=== PATIENT | male | born 1930 | race Caucasian/White ===

== ENCOUNTER 2017-01-14 12:09 | Inpatient (IN) | payer MEDICARE ==
[~2017-01-14] VITALS: Ht 185.4 cm; Wt 60.6 kg
[~2017-01-14 12:09] MED LIST: CALC-515 PO; CHOL500016 PO; CIPR250T30 PO; CYAN10005 PO; FAMO20TA5 PO; GLIM4TAB2 PO; METF-620 PO; ONDA4TAB7 PO; PANT40TA5 PO; [UNRECOGNIZED DRUG - OTHER] NAS
[2017-01-14] MEDS ORDERED: FAMOTIDINE 20 MG/2 ML VIAL IVP ONE (14:00)
[2017-01-14] MEDS ORDERED: IV DEXTROSE 5% - 0.9 % NACL 1,000 ML IV ONE (14:00)
[2017-01-14 14:21] LABS: BASO % 1 % (0-3); EOS % 1 % (0-3); HEMATOCRIT 27.7 % (39.0-53.0); HEMOGLOBIN 9.3 g/dL (13.0-17.5); LYMPH # 0.8 x10^3/uL (1.0-4.8); LYMPH % 21 % (24-48); MEAN CORPUSCULAR HEMOGLOBIN 31 pg (25-35); MEAN CORPUSCULAR HGB CONC 34 g/dL (31-37); MEAN CORPUSCULAR VOLUME 92 fL (79-100); MONO % 8 % (0-9); NEUT % 69 % (31-73); PLATELET COUNT 159 x10^3/uL (140-400); RED BLOOD COUNT 3.01 x10^6/uL (4.30-5.70); RED CELL DISTRIBUTION WIDTH 13.9 % (11.5-14.5)
[2017-01-14 14:55] LABS: CALCIUM 8.8 mg/dL (8.5-10.1); CREATININE 2.3 mg/dL (0.7-1.3); GFR 27.2; POTASSIUM 4.3 mmol/L (3.5-5.1)
[2017-01-14 15:02] LABS: ALBUMIN 2.8 g/dL (3.4-5.0); ALBUMIN/GLOBULIN RATIO 0.8 (1.0-1.7); TOTAL BILIRUBIN 0.3 mg/dL (0.2-1.0); TOTAL PROTEIN 6.5 g/dL (6.4-8.2)
--- NOTE | 2017-01-14 15:05 | PHYS DOC ---
Past Medical History Past Medical History: Diabetes-Type II, [place], Other Additional Past Medical Histor: ULCERS Past Surgical History: Appendectomy, Cholecystectomy, Coronary Bypass Surgery, Other Additional Past Surgical Histo: STOMACH MESH Alcohol Use: None Drug Use: None Adult General Chief Complaint Chief Complaint: DIFFICULTY SWALLOWING HPI HPI Patient is a 86 year old male with history of dysphagia with recent hospitalization for abdominal pain nausea vomiting. Patient was underwent EGD and offered PEG tube placement during the hospital stay. Patient reportedly declined PEG tube placement in rehabilitation. Since returning home, patient has had progressive difficulty swallowing per patient family members. He has not been able to take his pills for the past 2 days has had very little L distal oral intake. Patient reports feeling weak dizzy and lightheaded and regurgitation of food. Family and patient said they're willing to consider all therapeutic options available cluing PEG tube placement. [] Review of Systems Review of Systems Review symptoms as per history of present illness. Current Medications Current Medications Current Medications Medications (Trade) Dose Ordered Sig/Enrrique Start Time Stop Time Status Last Admin Dose Admin Dextrose/Sodium Chloride 1,000 ml @ 125 mls/hr 1X ONCE 01/14/17 14:00 01/14/17 21:59 01/14/17 14:32 125 MLS/HR Famotidine (Pepcid) 20 mg 1X ONCE 01/14/17 14:00 01/14/17 14:02 DC 01/14/17 14:31 20 MG Allergies Allergies Allergies Coded Allergies Type Severity Reaction Last Updated Verified No Known Drug Allergies 01/06/17 No Physical Exam Physical Exam Constitutional: Well developed, well nourished, no acute distress, non-toxic appearance. [] HENT: Normocephalic, atraumatic, bilateral external ears normal, oropharynx moist, no oral exudates, nose normal. [] Eyes: PERRLA, EOMI, conjunctiva normal, no discharge. [] Neck: Normal range of motion, no tenderness, supple, no stridor. [] Cardiovascular:Heart rate regular rhythm, no murmur [] Lungs & Thorax: Bilateral breath sounds clear to auscultation [] Abdomen: Bowel sounds normal, soft, gastric pain, tenderness, no masses, no pulsatile masses. [] Skin: Warm, dry, no erythema, no rash. [] Back: No tenderness, no CVA tenderness. [] Extremities: No tenderness, no cyanosis, no clubbing, ROM intact, no edema. [] Neurologic: Alert and oriented X 3, normal motor function, normal sensory function, no focal deficits noted. [] Psychologic: Affect normal, judgement normal, mood normal. [] Current Patient Data Vital Signs Vital Signs Date Time Temp Pulse Resp B/P (MAP) Pulse Ox O2 Delivery O2 Flow Rate FiO2 01/14/17 14:00 64 18 110/55 (73) 100 Room Air 01/14/17 12:32 98.4 98.4 Lab Values Laboratory Tests Test 01/14/17 14:00 White Blood Count 4.0 x10^3/uL (4.0-11.0) Red Blood Count 3.01 x10^6/uL (4.30-5.70) L Hemoglobin 9.3 g/dL (13.0-17.5) L Hematocrit 27.7 % (39.0-53.0) L Mean Corpuscular Volume 92 fL (79-100) Mean Corpuscular Hemoglobin 31 pg (25-35) Mean Corpuscular Hemoglobin Concent 34 g/dL (31-37) Red Cell Distribution Width 13.9 % (11.5-14.5) Platelet Count 159 x10^3/uL (140-400) Neutrophils (%) (Auto) 69 % (31-73) Lymphocytes (%) (Auto) 21 % (24-48) L Monocytes (%) (Auto) 8 % (0-9) Eosinophils (%) (Auto) 1 % (0-3) Basophils (%) (Auto) 1 % (0-3) Neutrophils # (Auto) 2.8 x10^3uL (1.8-7.7) Lymphocytes # (Auto) 0.8 x10^3/uL (1.0-4.8) L Monocytes # (Auto) 0.3 x10^3/uL (0.0-1.1) Eosinophils # (Auto) 0.0 x10^3/uL (0.0-0.7) Basophils # (Auto) 0.0 x10^3/uL (0.0-0.2) Sodium Level 137 mmol/L (136-145) Potassium Level 4.3 mmol/L (3.5-5.1) Chloride Level 101 mmol/L (98-107) Carbon Dioxide Level 29 mmol/L (21-32) Anion Gap 7 (6-14) Blood Urea Nitrogen 42 mg/dL (8-26) H Creatinine 2.3 mg/dL (0.7-1.3) H Estimated GFR (Cockcroft-Gault) 27.2 BUN/Creatinine Ratio 18 (6-20) Glucose Level 145 mg/dL (70-99) H Calcium Level 8.8 mg/dL (8.5-10.1) Total Bilirubin 0.3 mg/dL (0.2-1.0) Aspartate Amino Transferase (AST) 31 U/L (15-37) Alanine Aminotransferase (ALT) 37 U/L (16-63) Alkaline Phosphatase 59 U/L (46-116) Total Protein 6.5 g/dL (6.4-8.2) Albumin 2.8 g/dL (3.4-5.0) L Albumin/Globulin Ratio 0.8 (1.0-1.7) L Lipase 42 U/L (73-393) L Laboratory Tests 01/14/17 14:00 Laboratory Tests 01/14/17 14:00 EKG EKG [] Radiology/Procedures Radiology/Procedures [] Course & Med Decision Making Course & Med Decision Making Pertinent Labs and Imaging studies reviewed. (See chart for details) [Patient unable to tolerate fluid or food intake. IV fluids started. Dr. Callaway to admit] Armond Disclaimer Armond Disclaimer This electronic medical record was generated, in whole or in part, using a voice recognition dictation system. Departure Departure Disposition: ADMITTED INPATIENT Admitting Physician: Jessica Callaway Condition: STABLE Referrals: BEA ZARCO MD (PCP) MANDEEP GRAF DO Jan 14, 2017 15:05
[2017-01-14 16:00] VITALS: BP 110/72
[2017-01-14 19:35] VITALS: BP 116/66
[2017-01-14 23:56] VITALS: BP 114/62
[2017-01-15 03:50] VITALS: BP 131/71
[2017-01-15 07:00] VITALS: BP 116/55
[2017-01-15 11:00] VITALS: BP 116/55
--- NOTE | 2017-01-15 11:48 | PDOC ---
PROGRESS NOTES Chief Complaint Chief Complaint Dysphagia ASSESSMENT AND PLAN: 1. Dysphagia: recent admit for same with GI W/U, incl swallow study, EGD. pt/ family had declined PEG at the time, now willing to go ahead. GI consult 2. GERD/PUD: hx perf.ed ulcer in 2010; gastritis, esophageal ulcer on recent EGD; H.pylori neg, malignancy neg. PPI IV for now, carafate, trial viscous lidocaine 3. Nutrition: start PPN for now 4. DM2: well controlled. add ISS 5. CAD: no acute issues. oral meds currently on hold. 6. HTN: hydralazine PRN 7. CKD3: stable. monitor 8. Prophylaxis: mechanical for now in anticipation of intervention History of Present Illness History of Present Illness feels ok, but can't even swallow Boost, odynophagia is that bad. Vitals Vitals Vital Signs Date Time Temp Pulse Resp B/P (MAP) Pulse Ox O2 Delivery O2 Flow Rate FiO2 01/15/17 07:00 97.9 89 22 116/55 (75) 98 Room Air 97.9 Physical Exam General: Alert, Oriented X3, Cooperative, No acute distress Heart: Regular rate Lungs: Clear Abdomen: Normal bowel sounds, No tenderness, Other (thick scar gron gastrectomy ) Extremities: No edema Skin: No rashes Labs LABS Laboratory Tests Test 01/14/17 14:00 White Blood Count 4.0 x10^3/uL (4.0-11.0) Red Blood Count 3.01 x10^6/uL (4.30-5.70) Hemoglobin 9.3 g/dL (13.0-17.5) Hematocrit 27.7 % (39.0-53.0) Mean Corpuscular Volume 92 fL (79-100) Mean Corpuscular Hemoglobin 31 pg (25-35) Mean Corpuscular Hemoglobin Concent 34 g/dL (31-37) Red Cell Distribution Width 13.9 % (11.5-14.5) Platelet Count 159 x10^3/uL (140-400) Neutrophils (%) (Auto) 69 % (31-73) Lymphocytes (%) (Auto) 21 % (24-48) Monocytes (%) (Auto) 8 % (0-9) Eosinophils (%) (Auto) 1 % (0-3) Basophils (%) (Auto) 1 % (0-3) Neutrophils # (Auto) 2.8 x10^3uL (1.8-7.7) Lymphocytes # (Auto) 0.8 x10^3/uL (1.0-4.8) Monocytes # (Auto) 0.3 x10^3/uL (0.0-1.1) Eosinophils # (Auto) 0.0 x10^3/uL (0.0-0.7) Basophils # (Auto) 0.0 x10^3/uL (0.0-0.2) Sodium Level 137 mmol/L (136-145) Potassium Level 4.3 mmol/L (3.5-5.1) Chloride Level 101 mmol/L (98-107) Carbon Dioxide Level 29 mmol/L (21-32) Anion Gap 7 (6-14) Blood Urea Nitrogen 42 mg/dL (8-26) Creatinine 2.3 mg/dL (0.7-1.3) Estimated GFR (Cockcroft-Gault) 27.2 BUN/Creatinine Ratio 18 (6-20) Glucose Level 145 mg/dL (70-99) Calcium Level 8.8 mg/dL (8.5-10.1) Total Bilirubin 0.3 mg/dL (0.2-1.0) Aspartate Amino Transf (AST/SGOT) 31 U/L (15-37) Alanine Aminotransferase (ALT/SGPT) 37 U/L (16-63) Alkaline Phosphatase 59 U/L (46-116) Total Protein 6.5 g/dL (6.4-8.2) Albumin 2.8 g/dL (3.4-5.0) Albumin/Globulin Ratio 0.8 (1.0-1.7) Lipase 42 U/L (73-393) BRENDA TOMLIN MD Jan 15, 2017 11:48
[2017-01-15] MEDS ORDERED: hydrALAZINE 20 MG/ML VIAL. IVP PRN (13:00)
[2017-01-15] MEDS ORDERED: DEXTROSE 50% 25 GM / 50ML DISP.SYRIN. IV PRN (13:00)
[2017-01-15] MEDS: FAMOTIDINE 20 MG/2 ML VIAL IVP SCH (13:25)
--- NOTE | 2017-01-15 13:25 | PDOC2 ---
GI CONSULT Reason For Consult: "Dysphagia" HPI: HPI: 86 y/o male just discharged 01/10 after admission for difficulty with deglutition. Then and now does not describe true dysphagia, but feels like food stops in the hypopharynx. Evaluation last week included PHONE SCREENER evaluation including videoswallow exam; no demonstrable problems with swallow. Had barium swallow suggesting possible esophageal stricture. At EGD, severe esophagitis throughout the esophagus felt from reflux and penetrating duodenal ulcer, H.pylori negative, but no structure. Seemed to improve with PPI, though never liked eating much above pudding consistency. Says taking his PPI daily except yesterday. Apparently had operative repair of perforated ulcer in the past. S/p daniel. No liver or pancreatic history. Former smoker. No alcohol use. No clear NSAID use. No D, C, overt bleeding or melena. No documented colonoscopy though believes he had one sometime. When seen in one of our offices years ago , one was recommended along with an EGD, but not scheduled. No true nausea or vomiting, though spits out what he feels he can't swallow. Has had progressive weight loss. PMH: PMH: ASHD, HTN, CKD, DM. S/p CABG, daniel, appy, repair ulcer perf. FH: Family History: No pertinent hx Social History: Smoke: Quit ALCOHOL: none Drugs: None ROS: GEN: Denies fevers, chills, sweats HEENT: Denies blurred vision, sore throat CV: Denies chest pain RESP: Denies shortness of air, cough GI: Per HPI : Denies hematuria, dysuria ENDO: Denies weight changes NEURO: Denies confusion, dizziness MSK: Denies weakness, joint pain/swelling SKIN: Denies jaundice, pruritus Vitals: Vitals: Vital Signs Date Time Temp Pulse Resp B/P (MAP) Pulse Ox O2 Delivery O2 Flow Rate FiO2 01/15/17 11:00 97.8 69 22 116/55 (75) 96 Room Air 97.8 Labs: Labs: Laboratory Tests Test 01/14/17 14:00 White Blood Count 4.0 x10^3/uL (4.0-11.0) Red Blood Count 3.01 x10^6/uL (4.30-5.70) Hemoglobin 9.3 g/dL (13.0-17.5) Hematocrit 27.7 % (39.0-53.0) Mean Corpuscular Volume 92 fL (79-100) Mean Corpuscular Hemoglobin 31 pg (25-35) Mean Corpuscular Hemoglobin Concent 34 g/dL (31-37) Red Cell Distribution Width 13.9 % (11.5-14.5) Platelet Count 159 x10^3/uL (140-400) Neutrophils (%) (Auto) 69 % (31-73) Lymphocytes (%) (Auto) 21 % (24-48) Monocytes (%) (Auto) 8 % (0-9) Eosinophils (%) (Auto) 1 % (0-3) Basophils (%) (Auto) 1 % (0-3) Neutrophils # (Auto) 2.8 x10^3uL (1.8-7.7) Lymphocytes # (Auto) 0.8 x10^3/uL (1.0-4.8) Monocytes # (Auto) 0.3 x10^3/uL (0.0-1.1) Eosinophils # (Auto) 0.0 x10^3/uL (0.0-0.7) Basophils # (Auto) 0.0 x10^3/uL (0.0-0.2) Sodium Level 137 mmol/L (136-145) Potassium Level 4.3 mmol/L (3.5-5.1) Chloride Level 101 mmol/L (98-107) Carbon Dioxide Level 29 mmol/L (21-32) Anion Gap 7 (6-14) Blood Urea Nitrogen 42 mg/dL (8-26) Creatinine 2.3 mg/dL (0.7-1.3) Estimated GFR (Cockcroft-Gault) 27.2 BUN/Creatinine Ratio 18 (6-20) Glucose Level 145 mg/dL (70-99) Calcium Level 8.8 mg/dL (8.5-10.1) Total Bilirubin 0.3 mg/dL (0.2-1.0) Aspartate Amino Transf (AST/SGOT) 31 U/L (15-37) Alanine Aminotransferase (ALT/SGPT) 37 U/L (16-63) Alkaline Phosphatase 59 U/L (46-116) Total Protein 6.5 g/dL (6.4-8.2) Albumin 2.8 g/dL (3.4-5.0) Albumin/Globulin Ratio 0.8 (1.0-1.7) Lipase 42 U/L (73-393) No major changes since discharge. Allergies: Coded Allergies: No Known Drug Allergies (Unverified , 01/06/17) Medications: Current Medications Medications (Trade) Dose Ordered Sig/Enrrique Route PRN Reason Start Time Stop Time Status Last Admin Dose Admin Famotidine (Pepcid) 20 mg 1X ONCE IVP 01/14/17 14:00 01/14/17 14:02 DC 01/14/17 14:31 Dextrose/Sodium Chloride 1,000 ml @ 125 mls/hr 1X ONCE IV 01/14/17 14:00 01/14/17 21:59 DC 01/14/17 14:32 PE: GEN: NAD, thin HEENT: Atraumatic, PERRLA, multiple missing teeth. LUNGS: CTAB HEART: RRR, no murmurs ABD: NABS, S/ND/NT, no masses EXTREMITY: No edema SKIN: No rashes, no jaundice NEURO/PSYCH: A & O 3 A/P: A/P: IMP: Abnormal deglutition. Reasons for this unclear--fear of swallowing? psych ? By all measurements, no physical issue at cause. Severe reflux esophagitis. DU s/p daniel. Unclear prior colonoscopy. REC: At some point last admission, PEG may have been discussed. I cannot find note to say so, though covering physician mentions GJ tube. I think that may have been due to concerns re: possible duodenal stricture from his ulcer. Will leave decision re: this to Dr. Odonnell upon his return this evening. Agree with continuing anti-secretory. If he wishes to try eating, I think this is acceptable; last admission liked BOOST pudding a lot. --other pending. Thanks. ADEEL YBARRA MD Jan 15, 2017 13:25
[2017-01-15] MEDS: AMINO AC 3%/ELECTROLYTE/GLYCER 1,000 ML IV SCH (13:26)
[2017-01-15] MEDS: LIDOCAINE 2% VISCOUS 15 ML SOLUTION. SWSW PRN ×2 (13:26→21:31)
[2017-01-15 13:36] LABS: BASO % 1 % (0-3); EOS % 1 % (0-3); HEMATOCRIT 24.6 % (39.0-53.0); HEMOGLOBIN 8.6 g/dL (13.0-17.5); LYMPH # 0.7 x10^3/uL (1.0-4.8); LYMPH % 27 % (24-48); MEAN CORPUSCULAR HEMOGLOBIN 31 pg (25-35); MEAN CORPUSCULAR HGB CONC 35 g/dL (31-37); MEAN CORPUSCULAR VOLUME 90 fL (79-100); MONO % 9 % (0-9); NEUT % 63 % (31-73); PLATELET COUNT 147 x10^3/uL (140-400); RED BLOOD COUNT 2.75 x10^6/uL (4.30-5.70); RED CELL DISTRIBUTION WIDTH 13.8 % (11.5-14.5); WHITE BLOOD COUNT 2.7 x10^3/uL (4.0-11.0)
[2017-01-15 13:45] LABS: CALCIUM 8.2 mg/dL (8.5-10.1); CREATININE 1.7 mg/dL (0.7-1.3); GFR 38.5; POTASSIUM 3.8 mmol/L (3.5-5.1)
--- NOTE | 2017-01-15 14:49 | HP ---
ADMIT DATE: 01/14/2017 DATE OF SERVICE: 01/14/2017 CHIEF COMPLAINT: Odynophagia. HISTORY OF PRESENT ILLNESS: The patient is an 86-year-old gentleman with recent hospitalization for the same who presents with persistent symptoms. During his last hospitalization just a few days ago, he actually had undergone extensive GI workup with swallow study as well as EGD showing an esophageal ulcer, probably the culprit of his symptoms. The swallow study suggested he should do well with full liquids. However, the patient had deteriorated and could not tolerate fluids, but had declined a PEG tube during previous hospitalization. As he continued to deteriorate at home over the past couple of days, he decided to come in the hospital and is now amenable to PEG placement. PAST MEDICAL HISTORY: Esophageal ulcer as above. Distant history of perforated viscus status post repair in 2010, history of CAD status post CABG, hypertension , hyperlipidemia, diabetes mellitus. FAMILY HISTORY: Positive for CAD. SOCIAL HISTORY: Currently lives with his daughter and son-in-law. No toxic habits. ALLERGIES: No known drug allergies. HOME MEDICATIONS: Reviewed. REVIEW OF SYSTEMS: Positive as per HPI. He denies any nausea, any vomiting, any abdominal pain, per se. Denies any cough or palpitations. Rest of organ system review was negative. PHYSICAL EXAMINATION: VITAL SIGNS: From today show blood pressure of 110/72, heart rate of 69, respiratory rate at 18. He is afebrile. GENERAL: This is a malnourished appearing 86-year-old gentleman, alert and oriented, in no acute distress. HEENT: Shows no scleral icterus. Oral mucosa is dry. NECK: Supple, without any lymphadenopathy. HEART: Regular rate and rhythm. LUNGS: Clear to auscultation bilaterally. ABDOMEN: Has positive bowel sounds, soft. There is thickening of the midline incision due to scar formation. EXTREMITIES: Show no edema. SKIN: Warm, soft and dry without any rash. LABORATORY DATA: CBC with a WBC of 4.0, hemoglobin 9.3, platelets of 159. Chemistries with a BUN and creatinine of 42 and 2.3, above his previous levels of 28 and 1.5 just 4 days ago. Electrolytes within normal limits. Glucose at 145, albumin at 2.8. LFTs within normal. ASSESSMENT AND PLAN: The patient is an 86-year-old gentleman with severe odynophagia secondary to esophageal ulcer. He is now amenable to PEG placement. We will obtain GI consult. Dr. Odonnell saw him during his previous hospitalization. In the meantime, we will start him on TPN for nutrition. He has received IV fluids in the ER already. For his symptoms, he will receive IV PPI/H2 blockers, Carafate and viscous lidocaine p.r.n. As most of his medications are p.o. and will have to be held at least for the time being, I will start him on insulin sliding scale for his diabetes mellitus as well as hydralazine for hypertension. Once enteral access is regained, we will restart all his home meds. Prophylaxis will be mechanical until decision about surgical interventions is made. BRENDA TOMLIN MD DR: UR/nts JOB#: [id number] / [id number] BEA Desir MD MTDD
[2017-01-15 15:00] VITALS: BP 133/74
[2017-01-15] MEDS: INSULIN ASPART 300 UNITS/3 ML INSULN.PEN SQ SCH (17:00)
[2017-01-15] MEDS: SUCRALFATE 1 GM/10 ML ORAL.SUSP. PEG SCH ×2 (17:36→21:31)
[2017-01-15 19:00] VITALS: BP 126/68
[2017-01-15 23:00] VITALS: BP 125/64
[2017-01-16] MEDS: AMINO AC 3%/ELECTROLYTE/GLYCER 1,000 ML IV SCH ×2 (01:29→13:31)
[2017-01-16 07:00] VITALS: BP 124/38
[2017-01-16] MEDS: INSULIN ASPART 300 UNITS/3 ML INSULN.PEN SQ SCH ×3 (08:00→16:41)
[2017-01-16] MEDS: SUCRALFATE 1 GM/10 ML ORAL.SUSP. PEG SCH ×4 (08:45→21:00)
[2017-01-16] MEDS: FAMOTIDINE 20 MG/2 ML VIAL IVP SCH ×2 (08:46→13:00)
[2017-01-16] MEDS ORDERED: LIDO:MAALOX:DONNATAL 1:1:1 15 ML SINGLE DOSE SWSW PRN (09:15)
--- NOTE | 2017-01-16 09:16 | PDOC ---
Subjective: Subjective: Wants to try eating. Can't really tell me why he can't/won't swallow. Denies pain w/ swallowing. "Just can't swallow." present - also unable to contribute much to history. Son describes coughing w/ eating. Also says "lidocaine helped." Objective: Objective: D/w RN - has been NPO. Swallowed Carafate susp in my presence w/o issue - no coughing. Vital Signs: Vital Signs Date Time Temp Pulse Resp B/P (MAP) Pulse Ox O2 Delivery O2 Flow Rate FiO2 01/16/17 07:00 98.2 57 18 124/38 (66) 98 Room Air 98.2 Labs: Laboratory Tests Test 01/15/17 13:15 01/15/17 13:25 01/15/17 17:35 01/16/17 07:23 White Blood Count 2.7 x10^3/uL Red Blood Count 2.75 x10^6/uL Hemoglobin 8.6 g/dL Hematocrit 24.6 % Mean Corpuscular Volume 90 fL Mean Corpuscular Hemoglobin 31 pg Mean Corpuscular Hemoglobin Concent 35 g/dL Red Cell Distribution Width 13.8 % Platelet Count 147 x10^3/uL Neutrophils (%) (Auto) 63 % Lymphocytes (%) (Auto) 27 % Monocytes (%) (Auto) 9 % Eosinophils (%) (Auto) 1 % Basophils (%) (Auto) 1 % Neutrophils # (Auto) 1.7 x10^3uL Lymphocytes # (Auto) 0.7 x10^3/uL Monocytes # (Auto) 0.2 x10^3/uL Eosinophils # (Auto) 0.0 x10^3/uL Basophils # (Auto) 0.0 x10^3/uL Sodium Level 138 mmol/L Potassium Level 3.8 mmol/L Chloride Level 104 mmol/L Carbon Dioxide Level 30 mmol/L Anion Gap 4 Blood Urea Nitrogen 29 mg/dL Creatinine 1.7 mg/dL Estimated GFR (Cockcroft-Gault) 38.5 Glucose Level 149 mg/dL Calcium Level 8.2 mg/dL Glucose (Fingerstick) 135 mg/dL 101 mg/dL 125 mg/dL PE: GEN: NAD LUNGS: clear HEART: distant ABD: BS+, vague mild discomfort NEURO/PSYCH: A & O 3, Ewiiaapaayp A/P: Abnormal deglutition -recent workup: [facility] eval and videoswallow w/o problems barium swallow w/ possible stricture EGD w/ severe esophagitis and penetrating duodenal ulcer (w/o stricture) -- History difficult, as was last admission. No issues with swallowing this morning (at least w/ liquid Carafate). Will try diet, ask for nutrition consult - he likes Boost pudding. Has PPN. We did talk about a feeding tube briefly but pt/family want to try PO intake now. Restart PPI BID. Note palliative care has been asked to see. UPDATE - since I have seen this morning, RN called and said unable to tolerate liquids, "coughed back up," apparently changed back to NPO and now requesting feeding tube. Will review this w/ Dr. Odonnell. RAS HARRIS Jan 16, 2017 09:15
[2017-01-16 11:00] VITALS: BP 120/57
--- NOTE | 2017-01-16 14:38 | PDOC ---
PROGRESS NOTES Chief Complaint Chief Complaint Dysphagia ASSESSMENT AND PLAN: 1. Dysphagia: recent admit for same with GI W/U, incl swallow study, EGD. pt/ family had declined PEG at the time, now willing to go ahead. Dr Odonnell aware 2. GERD/PUD: hx perf.ed ulcer in 2010; gastritis, esophageal ulcer on recent EGD; H.pylori neg, malignancy neg. PPI IV for now, carafate, trial viscous lidocaine 3. Nutrition: start PPN for now 4. DM2: well controlled. add ISS 5. CAD: no acute issues. oral meds currently on hold. 6. HTN: hydralazine PRN 7. CKD3: stable. monitor 8. Prophylaxis: mechanical for now in anticipation of intervention History of Present Illness History of Present Illness "not good". convinced himself that the ulcer is blocking his esophagus almost completely. hence cant even swallow his own spit Vitals Vitals Vital Signs Date Time Temp Pulse Resp B/P (MAP) Pulse Ox O2 Delivery O2 Flow Rate FiO2 01/16/17 11:00 98.3 60 18 120/57 (78) 97 Room Air 98.3 Physical Exam General: Alert, Oriented X3, Cooperative, No acute distress Heart: Regular rate Lungs: Clear Abdomen: Normal bowel sounds, No tenderness, Other (thick scar gron gastrectomy ) Extremities: No edema Skin: No rashes Labs LABS Laboratory Tests Test 01/15/17 17:35 01/16/17 07:23 01/16/17 13:03 Glucose (Fingerstick) 101 mg/dL (70-99) 125 mg/dL (70-99) 120 mg/dL (70-99) Nutrition Consultation Dietary Evaluation: Recommendations by RD: Increase Calorie Intake, Protein supplementation, PPN/ TPN Comments: continue ppn at this time pt to reveive a PEG placement REC: Diabetisource AC @ 20 ml/hr increase by 10 ml q 8 hr to a goal rate of 50 ml/hr with 120 cc q 6 hr flush [place]: Diabetisource AC or equiv 250 ml ( 1 carton) 5 x day, 100 cc water fluse after each bolus. Expected Outcomes/Goals: Tolerate TF @ goal rate Malnutrition Findings: Food and Nutrition Intake (Sev: <50% est energy req 5days Body Fat Depletion (Non Severe: Mild Depletion Weight Status: Underweight BRENDA TOMLIN MD Jan 16, 2017 14:38
[2017-01-16 15:00] VITALS: BP 125/60
[2017-01-16] MEDS ORDERED: LANSOPRAZOLE 30 MG TAB.RAP.DR FT SCH (16:30)
[2017-01-16 19:00] VITALS: BP 118/65
[2017-01-16 23:00] VITALS: BP 105/69
[2017-01-17] VITALS (11 sets, daily range): BP systolic 94–136; BP diastolic 59–78
[2017-01-17] MEDS: AMINO AC 3%/ELECTROLYTE/GLYCER 1,000 ML IV SCH ×2 (01:53→14:48)
[2017-01-17 04:35] LABS: CALCIUM 8.3 mg/dL (8.5-10.1); CREATININE 1.4 mg/dL (0.7-1.3); GFR 48.2; POTASSIUM 4.4 mmol/L (3.5-5.1)
[2017-01-17 04:40] LABS: BASO % 1 % (0-3); EOS % 2 % (0-3); HEMATOCRIT 25.4 % (39.0-53.0); HEMOGLOBIN 8.7 g/dL (13.0-17.5); LYMPH # 0.7 x10^3/uL (1.0-4.8); LYMPH % 28 % (24-48); MEAN CORPUSCULAR HEMOGLOBIN 31 pg (25-35); MEAN CORPUSCULAR HGB CONC 34 g/dL (31-37); MEAN CORPUSCULAR VOLUME 90 fL (79-100); MONO % 10 % (0-9); NEUT % 60 % (31-73); PLATELET COUNT 129 x10^3/uL (140-400); RED BLOOD COUNT 2.83 x10^6/uL (4.30-5.70); RED CELL DISTRIBUTION WIDTH 13.9 % (11.5-14.5); WHITE BLOOD COUNT 2.6 x10^3/uL (4.0-11.0)
[2017-01-17] MEDS: SUCRALFATE 1 GM/10 ML ORAL.SUSP. PEG SCH ×4 (07:30→21:04)
[2017-01-17] MEDS: INSULIN ASPART 300 UNITS/3 ML INSULN.PEN SQ SCH ×3 (08:00→16:36)
[2017-01-17] MEDS: FAMOTIDINE 20 MG/2 ML VIAL IVP SCH (08:50)
--- NOTE | 2017-01-17 09:02 | PDOC ---
PROGRESS NOTES Chief Complaint Chief Complaint Dysphagia 1. Dysphagia: recent admit for same with GI W/U, incl swallow study, EGD. pt/ family had declined PEG at the time . Dr Odonnell aware, pt NPO today 2. GERD/PUD: hx perf.ed ulcer in 2010; gastritis, esophageal ulcer on recent EGD; H.pylori neg, malignancy neg. PPI IV for now, carafate, trial viscous lidocaine 3. Nutrition: start PPN for now 4. DM2: well controlled. add ISS 5. CAD: no acute issues. oral meds currently on hold. 6. HTN: hydralazine PRN 7. CKD3: stable. monitor 8. Prophylaxis: mechanical for now in anticipation of intervention 9,. full code status, from prior discussions History of Present Illness History of Present Illness could not eat yesterday] is NPO today with hopes of getting PEG has lost 10 lbs past few weeks pain, ulcer is blocking his esophagus Vitals Vitals Vital Signs Date Time Temp Pulse Resp B/P (MAP) Pulse Ox O2 Delivery O2 Flow Rate FiO2 01/17/17 08:00 Room Air 01/17/17 07:00 98.2 59 22 110/66 (81) 97 98.2 Physical Exam General: Alert, Oriented X3, Cooperative, No acute distress Heart: Regular rate Lungs: Clear Abdomen: Normal bowel sounds, No tenderness, Other (thick scar gron gastrectomy ) Extremities: No edema Skin: No rashes Labs LABS Laboratory Tests Test 01/16/17 13:03 01/16/17 19:02 01/17/17 03:32 01/17/17 03:52 Glucose (Fingerstick) 120 mg/dL (70-99) 125 mg/dL (70-99) Sodium Level 136 mmol/L (136-145) Potassium Level 4.4 mmol/L (3.5-5.1) Chloride Level 101 mmol/L (98-107) Carbon Dioxide Level 30 mmol/L (21-32) Anion Gap 5 (6-14) Blood Urea Nitrogen 26 mg/dL (8-26) Creatinine 1.4 mg/dL (0.7-1.3) Estimated GFR (Cockcroft-Gault) 48.2 Glucose Level 129 mg/dL (70-99) Calcium Level 8.3 mg/dL (8.5-10.1) White Blood Count 2.6 x10^3/uL (4.0-11.0) Red Blood Count 2.83 x10^6/uL (4.30-5.70) Hemoglobin 8.7 g/dL (13.0-17.5) Hematocrit 25.4 % (39.0-53.0) Mean Corpuscular Volume 90 fL (79-100) Mean Corpuscular Hemoglobin 31 pg (25-35) Mean Corpuscular Hemoglobin Concent 34 g/dL (31-37) Red Cell Distribution Width 13.9 % (11.5-14.5) Platelet Count 129 x10^3/uL (140-400) Neutrophils (%) (Auto) 60 % (31-73) Lymphocytes (%) (Auto) 28 % (24-48) Monocytes (%) (Auto) 10 % (0-9) Eosinophils (%) (Auto) 2 % (0-3) Basophils (%) (Auto) 1 % (0-3) Neutrophils # (Auto) 1.5 x10^3uL (1.8-7.7) Lymphocytes # (Auto) 0.7 x10^3/uL (1.0-4.8) Monocytes # (Auto) 0.3 x10^3/uL (0.0-1.1) Eosinophils # (Auto) 0.0 x10^3/uL (0.0-0.7) Basophils # (Auto) 0.0 x10^3/uL (0.0-0.2) Test 01/17/17 06:07 Glucose (Fingerstick) 133 mg/dL (70-99) Review of Systems Review of Systems unable to swallow no n/v.d Comment Review of Relevant I have reviewed the following items sukhwinder (where applicable) has been applied. Labs Laboratory Tests Test 01/15/17 13:15 01/15/17 13:25 01/15/17 17:35 01/16/17 07:23 White Blood Count 2.7 x10^3/uL (4.0-11.0) Red Blood Count 2.75 x10^6/uL (4.30-5.70) Hemoglobin 8.6 g/dL (13.0-17.5) Hematocrit 24.6 % (39.0-53.0) Mean Corpuscular Volume 90 fL (79-100) Mean Corpuscular Hemoglobin 31 pg (25-35) Mean Corpuscular Hemoglobin Concent 35 g/dL (31-37) Red Cell Distribution Width 13.8 % (11.5-14.5) Platelet Count 147 x10^3/uL (140-400) Neutrophils (%) (Auto) 63 % (31-73) Lymphocytes (%) (Auto) 27 % (24-48) Monocytes (%) (Auto) 9 % (0-9) Eosinophils (%) (Auto) 1 % (0-3) Basophils (%) (Auto) 1 % (0-3) Neutrophils # (Auto) 1.7 x10^3uL (1.8-7.7) Lymphocytes # (Auto) 0.7 x10^3/uL (1.0-4.8) Monocytes # (Auto) 0.2 x10^3/uL (0.0-1.1) Eosinophils # (Auto) 0.0 x10^3/uL (0.0-0.7) Basophils # (Auto) 0.0 x10^3/uL (0.0-0.2) Sodium Level 138 mmol/L (136-145) Potassium Level 3.8 mmol/L (3.5-5.1) Chloride Level 104 mmol/L (98-107) Carbon Dioxide Level 30 mmol/L (21-32) Anion Gap 4 (6-14) Blood Urea Nitrogen 29 mg/dL (8-26) Creatinine 1.7 mg/dL (0.7-1.3) Estimated GFR (Cockcroft-Gault) 38.5 Glucose Level 149 mg/dL (70-99) Calcium Level 8.2 mg/dL (8.5-10.1) Glucose (Fingerstick) 135 mg/dL (70-99) 101 mg/dL (70-99) 125 mg/dL (70-99) Test 01/16/17 13:03 01/16/17 19:02 01/17/17 03:32 01/17/17 03:52 Glucose (Fingerstick) 120 mg/dL (70-99) 125 mg/dL (70-99) Sodium Level 136 mmol/L (136-145) Potassium Level 4.4 mmol/L (3.5-5.1) Chloride Level 101 mmol/L (98-107) Carbon Dioxide Level 30 mmol/L (21-32) Anion Gap 5 (6-14) Blood Urea Nitrogen 26 mg/dL (8-26) Creatinine 1.4 mg/dL (0.7-1.3) Estimated GFR (Cockcroft-Gault) 48.2 Glucose Level 129 mg/dL (70-99) Calcium Level 8.3 mg/dL (8.5-10.1) White Blood Count 2.6 x10^3/uL (4.0-11.0) Red Blood Count 2.83 x10^6/uL (4.30-5.70) Hemoglobin 8.7 g/dL (13.0-17.5) Hematocrit 25.4 % (39.0-53.0) Mean Corpuscular Volume 90 fL (79-100) Mean Corpuscular Hemoglobin 31 pg (25-35) Mean Corpuscular Hemoglobin Concent 34 g/dL (31-37) Red Cell Distribution Width 13.9 % (11.5-14.5) Platelet Count 129 x10^3/uL (140-400) Neutrophils (%) (Auto) 60 % (31-73) Lymphocytes (%) (Auto) 28 % (24-48) Monocytes (%) (Auto) 10 % (0-9) Eosinophils (%) (Auto) 2 % (0-3) Basophils (%) (Auto) 1 % (0-3) Neutrophils # (Auto) 1.5 x10^3uL (1.8-7.7) Lymphocytes # (Auto) 0.7 x10^3/uL (1.0-4.8) Monocytes # (Auto) 0.3 x10^3/uL (0.0-1.1) Eosinophils # (Auto) 0.0 x10^3/uL (0.0-0.7) Basophils # (Auto) 0.0 x10^3/uL (0.0-0.2) Test 01/17/17 06:07 Glucose (Fingerstick) 133 mg/dL (70-99) Laboratory Tests Test 01/16/17 13:03 01/16/17 19:02 01/17/17 03:32 01/17/17 03:52 Glucose (Fingerstick) 120 mg/dL (70-99) 125 mg/dL (70-99) Sodium Level 136 mmol/L (136-145) Potassium Level 4.4 mmol/L (3.5-5.1) Chloride Level 101 mmol/L (98-107) Carbon Dioxide Level 30 mmol/L (21-32) Anion Gap 5 (6-14) Blood Urea Nitrogen 26 mg/dL (8-26) Creatinine 1.4 mg/dL (0.7-1.3) Estimated GFR (Cockcroft-Gault) 48.2 Glucose Level 129 mg/dL (70-99) Calcium Level 8.3 mg/dL (8.5-10.1) White Blood Count 2.6 x10^3/uL (4.0-11.0) Red Blood Count 2.83 x10^6/uL (4.30-5.70) Hemoglobin 8.7 g/dL (13.0-17.5) Hematocrit 25.4 % (39.0-53.0) Mean Corpuscular Volume 90 fL (79-100) Mean Corpuscular Hemoglobin 31 pg (25-35) Mean Corpuscular Hemoglobin Concent 34 g/dL (31-37) Red Cell Distribution Width 13.9 % (11.5-14.5) Platelet Count 129 x10^3/uL (140-400) Neutrophils (%) (Auto) 60 % (31-73) Lymphocytes (%) (Auto) 28 % (24-48) Monocytes (%) (Auto) 10 % (0-9) Eosinophils (%) (Auto) 2 % (0-3) Basophils (%) (Auto) 1 % (0-3) Neutrophils # (Auto) 1.5 x10^3uL (1.8-7.7) Lymphocytes # (Auto) 0.7 x10^3/uL (1.0-4.8) Monocytes # (Auto) 0.3 x10^3/uL (0.0-1.1) Eosinophils # (Auto) 0.0 x10^3/uL (0.0-0.7) Basophils # (Auto) 0.0 x10^3/uL (0.0-0.2) Test 01/17/17 06:07 Glucose (Fingerstick) 133 mg/dL (70-99) Medications Current Medications Famotidine (Pepcid) 20 mg 1X ONCE IVP Last administered on 01/14/17 14:31; Start 01/14/17 at 14:00; Stop 01/14/17 at 14:02; Status DC Dextrose/Sodium Chloride 1,000 ml @ 125 mls/hr 1X ONCE IV Last administered on 01/14/17 14:32; Start 01/14/17 at 14:00; Stop 01/14/17 at 21:59; Status DC Dextrose (Dextrose 50%-Water Syringe) 12.5 gm PRN Q15MIN PRN IV SEE COMMENTS; Start 01/15/17 at 13:00 Sucralfate (Carafate) 1 gm QIDACHS PEG Last administered on 01/16/17 08:45; Start 01/15/17 at 16:30 Famotidine (Pepcid) 20 mg DAILY IVP Last administered on 01/16/17 08:46; Start 01/15/17 at 13:00; Stop 01/16/17 at 09:16; Status DC Insulin Aspart (NovoLOG) 0-7 UNITS TIDWMEALS SQ ; Start 01/15/17 at 17:00 Amino Acids/ Glycerin/ Electrolytes 1,000 ml @ 80 mls/hr [id number] IV Last administered on 01/17/17 01:53; Start 01/15/17 at 13:00 Lidocaine HCl (Viscous Lidocaine) 15 ml Q6HRS PRN SWSW esophageal PAIN Last administered on 01/15/17 21:31; Start 01/15/17 at 13:00 Hydralazine HCl (Apresoline) 10 mg PRN Q4HRS PRN IVP ELEVATED BP, SEE COMMENTS ; Start 01/15/17 at 13:00 Lansoprazole (Prevacid) 30 mg BIDBFRMEAL FT ; Start 01/16/17 at 16:30; Stop at 16:30; Status DC Multi-Ingredient Mouthwash/Gargle (Gi Cocktail Single Dose) 15 ml TID PRN PRN SWSW dysphagia; Start 01/16/17 at 09:15; Stop 01/16/17 at 12:31; Status DC Famotidine (Pepcid) 20 mg DAILY IVP Last administered on 01/17/17 08:50; Start 01/16/17 at 13:00 Active Scripts Active Reported [Vapoinhaler] MARY Cipro (Ciprofloxacin Hcl) 250 Mg Tablet 1 Tab PO BID Zofran (Ondansetron Hcl) 4 Mg Tablet 1 Tab PO Q4HRS Pantoprazole Sodium 40 Mg Tablet.dr 1 Tab PO DAILY Metformin Hcl 1,000 Mg Tablet 1,000 Mg PO DAILYWBKFT Rolaids Chewable Tablet (Calcium Carb/Magnesium Hydrox) 1 Each Tab.chew 1 Each PO Famotidine 20 Mg Tablet 10 Mg PO HS Glimepiride 4 Mg Tablet 1 Tab PO DAILY Vitamin B-12 (Cyanocobalamin (Vitamin B-12)) 1,000 Mcg Tablet 1 Tab PO DAILY Vitamin D3 (Cholecalciferol (Vitamin D3)) 5,000 Unit Tablet 1 Tab PO DAILY Vitals/I & O Vital Sign - Last 24 Hours 01/16/17 01/16/17 01/16/17 01/16/17 09:33 11:00 15:00 19:00 Temp 98.3 98.3 98.4 98.3 98.3 98.4 Pulse 60 60 63 Resp 18 18 16 B/P (MAP) 120/57 (78) 125/60 (81) 118/65 (82) Pulse Ox 97 97 98 O2 Delivery Room Air Room Air Room Air 01/16/17 01/16/17 01/17/17 01/17/17 20:00 23:00 03:00 07:00 Temp 98.0 98.2 98.2 98.0 98.2 98.2 Pulse 69 53 59 Resp 13 16 22 B/P (MAP) 105/69 (81) 115/61 (79) 110/66 (81) Pulse Ox 97 97 97 O2 Delivery Room Air Room Air 01/17/17 08:00 O2 Delivery Room Air Nutrition Consultation Dietary Evaluation: Recommendations by RD: Increase Calorie Intake, Protein supplementation, PPN/ TPN Comments: continue ppn at this time pt to reveive a PEG placement REC: Diabetisource AC @ 20 ml/hr increase by 10 ml q 8 hr to a goal rate of 50 ml/hr with 120 cc q 6 hr flush Bolua: Diabetisource AC or equiv 250 ml ( 1 carton) 5 x day, 100 cc water fluse after each bolus. Expected Outcomes/Goals: Tolerate TF @ goal rate Malnutrition Findings: Food and Nutrition Intake (Sev: <50% est energy req 5days Body Fat Depletion (Non Severe: Mild Depletion Weight Status: Underweight JENNIFER CORTÉS MD Jan 17, 2017 09:02
[2017-01-17] MEDS: LIDOCAINE 2% VISCOUS 15 ML SOLUTION. SWSW PRN (10:44)
--- NOTE | 2017-01-17 10:47 | PDOC ---
Subjective: Subjective: Denies odynophagia. Maintain own secretions. Doesn't want to try eating. Wants PEG. Objective: Vital Signs: Vital Signs Date Time Temp Pulse Resp B/P (MAP) Pulse Ox O2 Delivery O2 Flow Rate FiO2 01/17/17 08:00 Room Air 01/17/17 07:00 98.2 59 22 110/66 (81) 97 98.2 Labs: Laboratory Tests Test 01/16/17 13:03 01/16/17 19:02 01/17/17 06:07 Glucose (Fingerstick) 120 mg/dL (70-99) 125 mg/dL (70-99) 133 mg/dL (70-99) PE: GEN: NAD LUNGS: CTAB HEART: RRR ABD: NABS, S/ND/NT NEURO/PSYCH: A & O 3 A/P: Abnormal deglutition, esophageal dysmotility -recent workup: [employer] eval and videoswallow w/o problems barium swallow w/ possible stricture, + dysmotility ("mildly disordered swallowing mechanism") EGD w/ severe esophagitis and penetrating duodenal ulcer (w/o stricture) -- PC has not seen. D/w Dr. Tan. D/w pt and - PEG procedure/risks, also that PEG placement might not resolved all swallow issues long-term considering dysmotility. They would like to proceed. No children present this morning. D/w Dr. Odonnell - remain NPO for PEG tonight. D/w RN. Will also check INR. On PPN and IV H2 simeon - continue for now. RAS HARRIS Jan 17, 2017 10:47
[2017-01-17 11:53] LABS: INR 1.1 (0.8-1.1); PROTHROMBIN TIME PATIENT 13.4 SEC (11.7-14.0)
[2017-01-17] MEDS: IV RINGERS,LACTATED 1000ML 1,000 ML IV SCH (15:29)
[2017-01-17] MEDS ORDERED: PROPOFOL 20 ML IV ONE (16:20)
--- NOTE | 2017-01-17 16:42 | PDOC4 ---
Operative Note Operative Note EGD Meds propofol per anesthesia Pre-op dx dysphagia/hx du post-op dx erosive esophagitis with stricture s/p scope dialtion obstructing duodneal ulcer bulb with stricture of duodenum. Plan possible tpn surgical consult for possible gastro-jejunostomy ARGENIS KIM MD Jan 17, 2017 16:42
[2017-01-18] MEDS: IV RINGERS,LACTATED 1000ML 1,000 ML IV SCH ×3 (01:30→21:30)
[2017-01-18] MEDS: AMINO AC 3%/ELECTROLYTE/GLYCER 1,000 ML IV SCH ×2 (05:48→16:00)
[2017-01-18 07:00] VITALS: BP 103/55
[2017-01-18] MEDS: SUCRALFATE 1 GM/10 ML ORAL.SUSP. PEG SCH ×4 (07:30→19:54)
[2017-01-18] MEDS: INSULIN ASPART 300 UNITS/3 ML INSULN.PEN SQ SCH ×3 (08:00→17:00)
[2017-01-18] MEDS: FAMOTIDINE 20 MG/2 ML VIAL IVP SCH (09:30)
--- NOTE | 2017-01-18 10:47 | PDOC ---
Subjective: Subjective: Feeling good this morning, slept well. Objective: Objective: D/w RN. Son wonders about PICC and TPN. Vital Signs: Vital Signs Date Time Temp Pulse Resp B/P (MAP) Pulse Ox O2 Delivery O2 Flow Rate FiO2 01/18/17 07:00 98.1 70 16 103/55 (71) 96 Room Air 98.1 Labs: Laboratory Tests Test 01/17/17 11:15 01/17/17 12:41 01/18/17 06:17 Prothrombin Time 13.4 SEC Prothromb Time International Ratio 1.1 Glucose (Fingerstick) 122 mg/dL 128 mg/dL Imaging: EGD: erosive esophagitis with stricture s/p scope dilation, obstructing duodenal ulcer bulb with stricture of duodenum. PE: GEN: NAD LUNGS: clear HEART: RRR ABD: soft NEURO/PSYCH: A & O 3 A/P: Abnormal deglutition, esophageal dysmotility Obstructing duodenal ulcer/stricture Erosive esophagitis w/ stricture s/p dilation -- Currently has PPN. Will ask for PICC and TPN. Await surgical consult re: possible GJ tube. Continue IV H2 simeon. RAS HARRIS Jan 18, 2017 10:47
[2017-01-18 11:00] VITALS: BP 93/55
[2017-01-18] MEDS ORDERED: IV DEXTROSE 5 %-0.45 % NACL 1,000 ML IV ONE (11:00)
--- NOTE | 2017-01-18 11:31 | PDOC ---
PROGRESS NOTES Chief Complaint Chief Complaint Dysphagia 1. Dysphagia: recent admit for same with GI W/U, incl swallow study, EGD. pt/ family had declined PEG at the time . Dr Odonnell aware, pt NPO today 2. GERD/PUD: hx perf.ed ulcer in 2010; gastritis, esophageal ulcer on recent EGD; H.pylori neg, malignancy neg. PPI IV for now, carafate, trial viscous lidocaine 3. Nutrition: start PPN for now 4. DM2: well controlled. add ISS 5. CAD: no acute issues. oral meds currently on hold. 6. HTN: hydralazine PRN 7. CKD3: stable. monitor 8. Prophylaxis: mechanical for now in anticipation of intervention 9,. full code status, from prior discussions History of Present Illness History of Present Illness still not eating BP lower, will give one liter additional D5 half Gen surg consult, per GI a PEG tube would not be sufficient G has lost 10 lbs past few weeks pain, ulcer is blocking his esophagus and duodenum Vitals Vitals Vital Signs Date Time Temp Pulse Resp B/P (MAP) Pulse Ox O2 Delivery O2 Flow Rate FiO2 01/18/17 11:00 97.9 61 18 93/55 (68) 97 Room Air 97.9 Physical Exam General: Alert, Oriented X3, Cooperative, No acute distress Heart: Regular rate Lungs: Clear Abdomen: Normal bowel sounds, No tenderness, Other (thick scar gron gastrectomy ) Extremities: No edema Skin: No rashes Labs LABS Laboratory Tests Test 01/17/17 12:41 01/18/17 06:17 01/18/17 11:01 Glucose (Fingerstick) 122 mg/dL (70-99) 128 mg/dL (70-99) 138 mg/dL (70-99) Comment Review of Relevant I have reviewed the following items sukhwinder (where applicable) has been applied. Labs Laboratory Tests Test 01/16/17 13:03 01/16/17 19:02 01/17/17 03:32 01/17/17 03:52 Glucose (Fingerstick) 120 mg/dL (70-99) 125 mg/dL (70-99) Sodium Level 136 mmol/L (136-145) Potassium Level 4.4 mmol/L (3.5-5.1) Chloride Level 101 mmol/L (98-107) Carbon Dioxide Level 30 mmol/L (21-32) Anion Gap 5 (6-14) Blood Urea Nitrogen 26 mg/dL (8-26) Creatinine 1.4 mg/dL (0.7-1.3) Estimated GFR (Cockcroft-Gault) 48.2 Glucose Level 129 mg/dL (70-99) Calcium Level 8.3 mg/dL (8.5-10.1) White Blood Count 2.6 x10^3/uL (4.0-11.0) Red Blood Count 2.83 x10^6/uL (4.30-5.70) Hemoglobin 8.7 g/dL (13.0-17.5) Hematocrit 25.4 % (39.0-53.0) Mean Corpuscular Volume 90 fL (79-100) Mean Corpuscular Hemoglobin 31 pg (25-35) Mean Corpuscular Hemoglobin Concent 34 g/dL (31-37) Red Cell Distribution Width 13.9 % (11.5-14.5) Platelet Count 129 x10^3/uL (140-400) Neutrophils (%) (Auto) 60 % (31-73) Lymphocytes (%) (Auto) 28 % (24-48) Monocytes (%) (Auto) 10 % (0-9) Eosinophils (%) (Auto) 2 % (0-3) Basophils (%) (Auto) 1 % (0-3) Neutrophils # (Auto) 1.5 x10^3uL (1.8-7.7) Lymphocytes # (Auto) 0.7 x10^3/uL (1.0-4.8) Monocytes # (Auto) 0.3 x10^3/uL (0.0-1.1) Eosinophils # (Auto) 0.0 x10^3/uL (0.0-0.7) Basophils # (Auto) 0.0 x10^3/uL (0.0-0.2) Test 01/17/17 06:07 01/17/17 11:15 01/17/17 12:41 01/18/17 06:17 Glucose (Fingerstick) 133 mg/dL (70-99) 122 mg/dL (70-99) 128 mg/dL (70-99) Prothrombin Time 13.4 SEC (11.7-14.0) Prothromb Time International Ratio 1.1 (0.8-1.1) Test 01/18/17 11:01 Glucose (Fingerstick) 138 mg/dL (70-99) Laboratory Tests Test 01/17/17 12:41 01/18/17 06:17 01/18/17 11:01 Glucose (Fingerstick) 122 mg/dL (70-99) 128 mg/dL (70-99) 138 mg/dL (70-99) Medications Current Medications Famotidine (Pepcid) 20 mg 1X ONCE IVP Last administered on 01/14/17 14:31; Start 01/14/17 at 14:00; Stop 01/14/17 at 14:02; Status DC Dextrose/Sodium Chloride 1,000 ml @ 125 mls/hr 1X ONCE IV Last administered on 01/14/17 14:32; Start 01/14/17 at 14:00; Stop 01/14/17 at 21:59; Status DC Dextrose (Dextrose 50%-Water Syringe) 12.5 gm PRN Q15MIN PRN IV SEE COMMENTS; Start 01/15/17 at 13:00 Sucralfate (Carafate) 1 gm QIDACHS PEG Last administered on 01/17/17 21:04; Start 01/15/17 at 16:30 Famotidine (Pepcid) 20 mg DAILY IVP Last administered on 01/16/17 08:46; Start 01/15/17 at 13:00; Stop 01/16/17 at 09:16; Status DC Insulin Aspart (NovoLOG) 0-7 UNITS TIDWMEALS SQ ; Start 01/15/17 at 17:00 Amino Acids/ Glycerin/ Electrolytes 1,000 ml @ 80 mls/hr [id number] IV Last administered on 01/18/17 05:48; Start 01/15/17 at 13:00 Lidocaine HCl (Viscous Lidocaine) 15 ml Q6HRS PRN SWSW esophageal PAIN Last administered on 01/17/17 10:44; Start 01/15/17 at 13:00 Hydralazine HCl (Apresoline) 10 mg PRN Q4HRS PRN IVP ELEVATED BP, SEE COMMENTS ; Start 01/15/17 at 13:00 Lansoprazole (Prevacid) 30 mg BIDBFRMEAL FT ; Start 01/16/17 at 16:30; Stop at 16:30; Status DC Multi-Ingredient Mouthwash/Gargle (Gi Cocktail Single Dose) 15 ml TID PRN PRN SWSW dysphagia; Start 01/16/17 at 09:15; Stop 01/16/17 at 12:31; Status DC Famotidine (Pepcid) 20 mg DAILY IVP Last administered on 01/18/17 09:30; Start 01/16/17 at 13:00 Cefazolin Sodium 1 gm/Sodium Chloride 50 ml @ 100 mls/hr 1X ONCE IV Last administered on 01/17/17 16:26; Start 01/17/17 at 15:00; Stop 01/17/17 at 15:29 ; Status DC Ringer's Solution 1,000 ml @ 100 mls/hr Q10H IV Last administered on 15:29; Start 01/17/17 at 15:30 Propofol 20 ml @ As Directed STK-MED ONCE IV ; Start 01/17/17 at 16:20; Stop at 16:21; Status DC Dextrose/Sodium Chloride 1,000 ml @ 75 mls/hr 1X ONCE IV ; Start 01/18/17 at 11:00; Stop 01/19/17 at 00:19 Active Scripts Active Reported [Vapoinhaler] MARY Cipro (Ciprofloxacin Hcl) 250 Mg Tablet 1 Tab PO BID Zofran (Ondansetron Hcl) 4 Mg Tablet 1 Tab PO Q4HRS Pantoprazole Sodium 40 Mg Tablet.dr 1 Tab PO DAILY Metformin Hcl 1,000 Mg Tablet 1,000 Mg PO DAILYWBKFT Rolaids Chewable Tablet (Calcium Carb/Magnesium Hydrox) 1 Each Tab.chew 1 Each PO Famotidine 20 Mg Tablet 10 Mg PO HS Glimepiride 4 Mg Tablet 1 Tab PO DAILY Vitamin B-12 (Cyanocobalamin (Vitamin B-12)) 1,000 Mcg Tablet 1 Tab PO DAILY Vitamin D3 (Cholecalciferol (Vitamin D3)) 5,000 Unit Tablet 1 Tab PO DAILY Vitals/I & O Vital Sign - Last 24 Hours 01/17/17 01/17/17 01/17/17 01/17/17 15:00 15:14 16:37 16:45 Temp 98.3 97.9 98.5 98.3 97.9 98.5 Pulse 62 70 73 75 Resp 18 18 16 16 B/P (MAP) 94/60 (71) 160/74 122/68 Pulse Ox 96 92 98 99 O2 Delivery Room Air Room Air Room Air 01/17/17 01/17/17 01/17/17 01/17/17 17:00 17:15 17:30 17:45 Temp 98.0 98.0 Pulse 67 69 68 67 Resp 16 18 20 18 B/P (MAP) 127/69 136/71 (92) 126/67 (86) 131/66 (87) Pulse Ox 96 97 96 97 O2 Delivery Room Air Room Air 01/17/17 01/17/17 01/17/17 01/17/17 18:00 18:30 19:00 20:00 Temp 97.2 97.7 97.2 97.7 Pulse 69 69 72 Resp 18 19 B/P (MAP) 126/78 (94) 125/66 (85) 118/73 (88) Pulse Ox 97 96 97 O2 Delivery Room Air Room Air Room Air Room Air 01/17/17 01/18/17 01/18/17 23:00 07:00 11:00 Temp 98.4 98.1 97.9 98.4 98.1 97.9 Pulse 85 70 61 Resp 18 16 18 B/P (MAP) 121/76 (91) 103/55 (71) 93/55 (68) Pulse Ox 95 96 97 O2 Delivery Room Air Room Air Room Air Nutrition Consultation Dietary Evaluation: Recommendations by RD: Increase Calorie Intake, Protein supplementation, PPN/ TPN Comments: continue ppn at this time pt to reveive a PEG placement REC: Diabetisource AC @ 20 ml/hr increase by 10 ml q 8 hr to a goal rate of 50 ml/hr with 120 cc q 6 hr flush Bolua: Diabetisource AC or equiv 250 ml ( 1 carton) 5 x day, 100 cc water fluse after each bolus. Expected Outcomes/Goals: Tolerate TF @ goal rate Malnutrition Findings: Food and Nutrition Intake (Sev: <50% est energy req 5days Body Fat Depletion (Non Severe: Mild Depletion Weight Status: Underweight JENNIFER CORTÉS MD Jan 18, 2017 11:31
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
[2017-01-18] MEDS ORDERED: TPN PER PHARMACY MC PRN ×2 (14:00→14:30)
[2017-01-18 15:12] VITALS: BP 96/54
[2017-01-18 19:00] VITALS: BP 111/60
[2017-01-18] MEDS ORDERED: TOTAL PARENTERAL NUTRITION 1,424.9987 ML, AMINO ACIDS 10 % 60 GM, DEXTROSE 70 % IN WATE... IV SCH ×10 (22:00)
[2017-01-18 23:00] VITALS: BP 110/63
[2017-01-19 03:00] VITALS: BP 114/61
[2017-01-19 03:59] LABS: BASO % 1 % (0-3); EOS % 2 % (0-3); HEMATOCRIT 24.9 % (39.0-53.0); HEMOGLOBIN 8.6 g/dL (13.0-17.5); LYMPH # 0.6 x10^3/uL (1.0-4.8); LYMPH % 26 % (24-48); MEAN CORPUSCULAR HEMOGLOBIN 31 pg (25-35); MEAN CORPUSCULAR HGB CONC 35 g/dL (31-37); MEAN CORPUSCULAR VOLUME 90 fL (79-100); MONO % 8 % (0-9); NEUT % 63 % (31-73); PLATELET COUNT 114 x10^3/uL (140-400); RED BLOOD COUNT 2.77 x10^6/uL (4.30-5.70); RED CELL DISTRIBUTION WIDTH 13.9 % (11.5-14.5); WHITE BLOOD COUNT 2.4 x10^3/uL (4.0-11.0)
[2017-01-19 04:26] LABS: ALBUMIN 2.4 g/dL (3.4-5.0); ALBUMIN/GLOBULIN RATIO 0.8 (1.0-1.7); CALCIUM 8.1 mg/dL (8.5-10.1); CREATININE 1.5 mg/dL (0.7-1.3); GFR 44.5; POTASSIUM 4.3 mmol/L (3.5-5.1); TOTAL BILIRUBIN 0.5 mg/dL (0.2-1.0); TOTAL PROTEIN 5.4 g/dL (6.4-8.2)
[2017-01-19 04:30] LABS: MAGNESIUM 1.7 mg/dL (1.8-2.4); PHOSPHORUS 3.2 mg/dL (2.6-4.7)
[2017-01-19 07:00] VITALS: BP 109/51
[2017-01-19] MEDS: SUCRALFATE 1 GM/10 ML ORAL.SUSP. PEG SCH ×2 (07:30→11:30)
--- NOTE | 2017-01-19 07:34 | RAD ---
Indication assess PICC line placement. A single view of the chest was obtained. Comparison is made to an examination 01/02/2017. Postoperative changes are noted. There are scattered calcified granulomas. The lungs are clear of acute infiltrates. There is a right PICC line. The tip is appropriately positioned in the mid to distal SVC. IMPRESSION: No acute finding in the chest. Appropriately positioned right PICC line
[2017-01-19] MEDS: INSULIN ASPART 300 UNITS/3 ML INSULN.PEN SQ SCH ×2 (08:14→12:00)
--- NOTE | 2017-01-19 08:57 | PDOC ---
PROGRESS NOTES Chief Complaint Chief Complaint Dysphagia and malnutrition 1. Dysphagia: recent admit for same with GI W/U, incl swallow study, EGD. pt/ family had declined PEG at the time . Dr Odonnell aware, pt NPO today 2. GERD/PUD: hx perf.ed ulcer in 2010; gastritis, esophageal ulcer on recent EGD; H.pylori neg, malignancy neg. PPI IV for now, carafate, trial viscous lidocaine 3. Nutrition: start PPN for now 4. DM2: well controlled. add ISS 5. CAD: no acute issues. oral meds currently on hold. 6. HTN: hydralazine PRN 7. CKD3: stable. monitor 8. Prophylaxis: mechanical for now in anticipation of intervention 9,. full code status, History of Present Illness History of Present Illness WILL NEED TPN for a week, then re-eval for surg, plan SNU, get PT and OT eval to clear will need daily labs to start TPN still not eatingf Gen surg consult, malnutrition is now limiting has lost 10 lbs past few weeks pain, ulcer is blocking his esophagus and duodenum Vitals Vitals Vital Signs Date Time Temp Pulse Resp B/P (MAP) Pulse Ox O2 Delivery O2 Flow Rate FiO2 01/19/17 07:00 98.4 62 18 109/51 (70) 92 Room Air 98.4 Physical Exam General: Alert, Oriented X3, Cooperative, No acute distress, Other (thin, cachetic) Heart: Regular rate Lungs: Clear Abdomen: Soft, No tenderness, Other (well healed surgical scar) Extremities: No clubbing, No cyanosis Skin: No rashes, No breakdown Labs LABS Laboratory Tests Test 01/18/17 11:01 01/18/17 17:48 01/18/17 21:30 01/19/17 03:43 Glucose (Fingerstick) 138 mg/dL (70-99) 139 mg/dL (70-99) 134 mg/dL (70-99) White Blood Count 2.4 x10^3/uL (4.0-11.0) Red Blood Count 2.77 x10^6/uL (4.30-5.70) Hemoglobin 8.6 g/dL (13.0-17.5) Hematocrit 24.9 % (39.0-53.0) Mean Corpuscular Volume 90 fL (79-100) Mean Corpuscular Hemoglobin 31 pg (25-35) Mean Corpuscular Hemoglobin Concent 35 g/dL (31-37) Red Cell Distribution Width 13.9 % (11.5-14.5) Platelet Count 114 x10^3/uL (140-400) Neutrophils (%) (Auto) 63 % (31-73) Lymphocytes (%) (Auto) 26 % (24-48) Monocytes (%) (Auto) 8 % (0-9) Eosinophils (%) (Auto) 2 % (0-3) Basophils (%) (Auto) 1 % (0-3) Neutrophils # (Auto) 1.5 x10^3uL (1.8-7.7) Lymphocytes # (Auto) 0.6 x10^3/uL (1.0-4.8) Monocytes # (Auto) 0.2 x10^3/uL (0.0-1.1) Eosinophils # (Auto) 0.0 x10^3/uL (0.0-0.7) Basophils # (Auto) 0.0 x10^3/uL (0.0-0.2) Sodium Level 136 mmol/L (136-145) Potassium Level 4.3 mmol/L (3.5-5.1) Chloride Level 102 mmol/L (98-107) Carbon Dioxide Level 29 mmol/L (21-32) Anion Gap 5 (6-14) Blood Urea Nitrogen 26 mg/dL (8-26) Creatinine 1.5 mg/dL (0.7-1.3) Estimated GFR (Cockcroft-Gault) 44.5 BUN/Creatinine Ratio 17 (6-20) Glucose Level 201 mg/dL (70-99) Calcium Level 8.1 mg/dL (8.5-10.1) Phosphorus Level 3.2 mg/dL (2.6-4.7) Magnesium Level 1.7 mg/dL (1.8-2.4) Total Bilirubin 0.5 mg/dL (0.2-1.0) Aspartate Amino Transf (AST/SGOT) 18 U/L (15-37) Alanine Aminotransferase (ALT/SGPT) 21 U/L (16-63) Alkaline Phosphatase 53 U/L (46-116) Total Protein 5.4 g/dL (6.4-8.2) Albumin 2.4 g/dL (3.4-5.0) Albumin/Globulin Ratio 0.8 (1.0-1.7) Test 01/19/17 05:12 Glucose (Fingerstick) 207 mg/dL (70-99) Review of Systems Review of Systems dysphagia, globus, no diarrhea, limited stool Comment Review of Relevant I have reviewed the following items sukhwinder (where applicable) has been applied. Labs Laboratory Tests Test 01/17/17 11:15 01/17/17 12:41 01/18/17 06:17 01/18/17 11:01 Prothrombin Time 13.4 SEC (11.7-14.0) Prothromb Time International Ratio 1.1 (0.8-1.1) Glucose (Fingerstick) 122 mg/dL (70-99) 128 mg/dL (70-99) 138 mg/dL (70-99) Test 01/18/17 17:48 01/18/17 21:30 01/19/17 03:43 01/19/17 05:12 Glucose (Fingerstick) 139 mg/dL (70-99) 134 mg/dL (70-99) 207 mg/dL (70-99) White Blood Count 2.4 x10^3/uL (4.0-11.0) Red Blood Count 2.77 x10^6/uL (4.30-5.70) Hemoglobin 8.6 g/dL (13.0-17.5) Hematocrit 24.9 % (39.0-53.0) Mean Corpuscular Volume 90 fL (79-100) Mean Corpuscular Hemoglobin 31 pg (25-35) Mean Corpuscular Hemoglobin Concent 35 g/dL (31-37) Red Cell Distribution Width 13.9 % (11.5-14.5) Platelet Count 114 x10^3/uL (140-400) Neutrophils (%) (Auto) 63 % (31-73) Lymphocytes (%) (Auto) 26 % (24-48) Monocytes (%) (Auto) 8 % (0-9) Eosinophils (%) (Auto) 2 % (0-3) Basophils (%) (Auto) 1 % (0-3) Neutrophils # (Auto) 1.5 x10^3uL (1.8-7.7) Lymphocytes # (Auto) 0.6 x10^3/uL (1.0-4.8) Monocytes # (Auto) 0.2 x10^3/uL (0.0-1.1) Eosinophils # (Auto) 0.0 x10^3/uL (0.0-0.7) Basophils # (Auto) 0.0 x10^3/uL (0.0-0.2) Sodium Level 136 mmol/L (136-145) Potassium Level 4.3 mmol/L (3.5-5.1) Chloride Level 102 mmol/L (98-107) Carbon Dioxide Level 29 mmol/L (21-32) Anion Gap 5 (6-14) Blood Urea Nitrogen 26 mg/dL (8-26) Creatinine 1.5 mg/dL (0.7-1.3) Estimated GFR (Cockcroft-Gault) 44.5 BUN/Creatinine Ratio 17 (6-20) Glucose Level 201 mg/dL (70-99) Calcium Level 8.1 mg/dL (8.5-10.1) Phosphorus Level 3.2 mg/dL (2.6-4.7) Magnesium Level 1.7 mg/dL (1.8-2.4) Total Bilirubin 0.5 mg/dL (0.2-1.0) Aspartate Amino Transf (AST/SGOT) 18 U/L (15-37) Alanine Aminotransferase (ALT/SGPT) 21 U/L (16-63) Alkaline Phosphatase 53 U/L (46-116) Total Protein 5.4 g/dL (6.4-8.2) Albumin 2.4 g/dL (3.4-5.0) Albumin/Globulin Ratio 0.8 (1.0-1.7) Laboratory Tests Test 01/18/17 11:01 01/18/17 17:48 01/18/17 21:30 01/19/17 03:43 Glucose (Fingerstick) 138 mg/dL (70-99) 139 mg/dL (70-99) 134 mg/dL (70-99) White Blood Count 2.4 x10^3/uL (4.0-11.0) Red Blood Count 2.77 x10^6/uL (4.30-5.70) Hemoglobin 8.6 g/dL (13.0-17.5) Hematocrit 24.9 % (39.0-53.0) Mean Corpuscular Volume 90 fL (79-100) Mean Corpuscular Hemoglobin 31 pg (25-35) Mean Corpuscular Hemoglobin Concent 35 g/dL (31-37) Red Cell Distribution Width 13.9 % (11.5-14.5) Platelet Count 114 x10^3/uL (140-400) Neutrophils (%) (Auto) 63 % (31-73) Lymphocytes (%) (Auto) 26 % (24-48) Monocytes (%) (Auto) 8 % (0-9) Eosinophils (%) (Auto) 2 % (0-3) Basophils (%) (Auto) 1 % (0-3) Neutrophils # (Auto) 1.5 x10^3uL (1.8-7.7) Lymphocytes # (Auto) 0.6 x10^3/uL (1.0-4.8) Monocytes # (Auto) 0.2 x10^3/uL (0.0-1.1) Eosinophils # (Auto) 0.0 x10^3/uL (0.0-0.7) Basophils # (Auto) 0.0 x10^3/uL (0.0-0.2) Sodium Level 136 mmol/L (136-145) Potassium Level 4.3 mmol/L (3.5-5.1) Chloride Level 102 mmol/L (98-107) Carbon Dioxide Level 29 mmol/L (21-32) Anion Gap 5 (6-14) Blood Urea Nitrogen 26 mg/dL (8-26) Creatinine 1.5 mg/dL (0.7-1.3) Estimated GFR (Cockcroft-Gault) 44.5 BUN/Creatinine Ratio 17 (6-20) Glucose Level 201 mg/dL (70-99) Calcium Level 8.1 mg/dL (8.5-10.1) Phosphorus Level 3.2 mg/dL (2.6-4.7) Magnesium Level 1.7 mg/dL (1.8-2.4) Total Bilirubin 0.5 mg/dL (0.2-1.0) Aspartate Amino Transf (AST/SGOT) 18 U/L (15-37) Alanine Aminotransferase (ALT/SGPT) 21 U/L (16-63) Alkaline Phosphatase 53 U/L (46-116) Total Protein 5.4 g/dL (6.4-8.2) Albumin 2.4 g/dL (3.4-5.0) Albumin/Globulin Ratio 0.8 (1.0-1.7) Test 01/19/17 05:12 Glucose (Fingerstick) 207 mg/dL (70-99) Medications Current Medications Famotidine (Pepcid) 20 mg 1X ONCE IVP Last administered on 01/14/17 14:31; Start 01/14/17 at 14:00; Stop 01/14/17 at 14:02; Status DC Dextrose/Sodium Chloride 1,000 ml @ 125 mls/hr 1X ONCE IV Last administered on 01/14/17 14:32; Start 01/14/17 at 14:00; Stop 01/14/17 at 21:59; Status DC Dextrose (Dextrose 50%-Water Syringe) 12.5 gm PRN Q15MIN PRN IV SEE COMMENTS; Start 01/15/17 at 13:00 Sucralfate (Carafate) 1 gm QIDACHS PEG Last administered on 01/17/17 21:04; Start 01/15/17 at 16:30 Famotidine (Pepcid) 20 mg DAILY IVP Last administered on 01/16/17 08:46; Start 01/15/17 at 13:00; Stop 01/16/17 at 09:16; Status DC Insulin Aspart (NovoLOG) 0-7 UNITS TIDWMEALS SQ Last administered on 01/19/17 08:14; Start 01/15/17 at 17:00 Amino Acids/ Glycerin/ Electrolytes 1,000 ml @ 80 mls/hr [id number] IV Last administered on 01/18/17 05:48; Start 01/15/17 at 13:00; Stop 01/18/17 at 21:59 ; Status DC Lidocaine HCl (Viscous Lidocaine) 15 ml Q6HRS PRN SWSW esophageal PAIN Last administered on 01/17/17 10:44; Start 01/15/17 at 13:00 Hydralazine HCl (Apresoline) 10 mg PRN Q4HRS PRN IVP ELEVATED BP, SEE COMMENTS ; Start 01/15/17 at 13:00 Lansoprazole (Prevacid) 30 mg BIDBFRMEAL FT ; Start 01/16/17 at 16:30; Stop at 16:30; Status DC Multi-Ingredient Mouthwash/Gargle (Gi Cocktail Single Dose) 15 ml TID PRN PRN SWSW dysphagia; Start 01/16/17 at 09:15; Stop 01/16/17 at 12:31; Status DC Famotidine (Pepcid) 20 mg DAILY IVP Last administered on 01/18/17 09:30; Start 01/16/17 at 13:00 Cefazolin Sodium 1 gm/Sodium Chloride 50 ml @ 100 mls/hr 1X ONCE IV Last administered on 01/17/17 16:26; Start 01/17/17 at 15:00; Stop 01/17/17 at 15:29 ; Status DC Ringer's Solution 1,000 ml @ 100 mls/hr Q10H IV Last administered on 15:29; Start 01/17/17 at 15:30 Propofol 20 ml @ As Directed STK-MED ONCE IV ; Start 01/17/17 at 16:20; Stop at 16:21; Status DC Dextrose/Sodium Chloride 1,000 ml @ 75 mls/hr 1X ONCE IV Last administered on 01/18/17 13:27; Start 01/18/17 at 11:00; Stop 01/19/17 at 00:19; Status DC Info 1 each PRN DAILY PRN MC SEE COMMENTS Last administered on 01/18/17 14:05 ; Start 01/18/17 at 14:00 Info 1 each PRN DAILY PRN MC SEE COMMENTS; Start 01/18/17 at 14:30; Status UNV Sodium Chloride 90 meq/Potassium Chloride 50 meq/ Potassium Phosphate 13.6 mmol/ Magnesium Sulfate 10 meq/ Calcium Gluconate 10 meq/ Multivitamins 10 ml/Chromium / Copper/Manganese/ Seleni/Zn 1 ml/ Total Parenteral Nutrition/Amino Acids/ Dextrose/ Fat Emulsion Intravenous 1,512 ml @ 63 mls/hr TPN CONT IV Last administered on 01/19/17 01:41; Start 01/18/17 at 22:00; Stop 01/19/17 at 21:59 Magnesium Sulfate/ Dextrose 50 ml @ 25 mls/hr 1X ONCE IV ; Start 01/19/17 at 09 :30; Stop 01/19/17 at 11:29 Active Scripts Active Reported [Vapoinhaler] MARY Cipro (Ciprofloxacin Hcl) 250 Mg Tablet 1 Tab PO BID Zofran (Ondansetron Hcl) 4 Mg Tablet 1 Tab PO Q4HRS Pantoprazole Sodium 40 Mg Tablet.dr 1 Tab PO DAILY Metformin Hcl 1,000 Mg Tablet 1,000 Mg PO DAILYWBKFT Rolaids Chewable Tablet (Calcium Carb/Magnesium Hydrox) 1 Each Tab.chew 1 Each PO Famotidine 20 Mg Tablet 10 Mg PO HS Glimepiride 4 Mg Tablet 1 Tab PO DAILY Vitamin B-12 (Cyanocobalamin (Vitamin B-12)) 1,000 Mcg Tablet 1 Tab PO DAILY Vitamin D3 (Cholecalciferol (Vitamin D3)) 5,000 Unit Tablet 1 Tab PO DAILY Vitals/I & O Vital Sign - Last 24 Hours 01/18/17 01/18/17 01/18/17 01/18/17 11:00 15:12 19:00 23:00 Temp 97.9 98.2 98.2 97.6 97.9 98.2 98.2 97.6 Pulse 61 61 65 70 Resp 18 18 18 18 B/P (MAP) 93/55 (68) 96/54 (68) 111/60 (77) 110/63 (79) Pulse Ox 97 97 94 98 O2 Delivery Room Air Room Air Room Air Room Air 01/19/17 01/19/17 03:00 07:00 Temp 98.3 98.4 98.3 98.4 Pulse 71 62 Resp 18 18 B/P (MAP) 114/61 (78) 109/51 (70) Pulse Ox 98 92 O2 Delivery Room Air Room Air Nutrition Consultation Dietary Evaluation: Recommendations by RD: Increase Calorie Intake, Protein supplementation, PPN/ TPN Comments: continue ppn at this time pt to reveive a PEG placement REC: Diabetisource AC @ 20 ml/hr increase by 10 ml q 8 hr to a goal rate of 50 ml/hr with 120 cc q 6 hr flush [place]: Diabetisource AC or equiv 250 ml ( 1 carton) 5 x day, 100 cc water fluse after each bolus. Expected Outcomes/Goals: Tolerate TF @ goal rate Malnutrition Findings: Food and Nutrition Intake (Sev: <50% est energy req 5days Body Fat Depletion (Non Severe: Mild Depletion Weight Status: Underweight JENNIFER CORTÉS MD Jan 19, 2017 08:57
[2017-01-19] MEDS: FAMOTIDINE 20 MG/2 ML VIAL IVP SCH (09:04)
[2017-01-19] MEDS ORDERED: MAGNESIUM SULFATE 2GM 50 ML IV ONE (09:30)
--- NOTE | 2017-01-19 10:56 | PDOC ---
SURGICAL PROGRESS NOTE Subjective Pt has been sleeping a lot, denies pain, denies N/V Vital Signs Vital Signs Date Time Temp Pulse Resp B/P (MAP) Pulse Ox O2 Delivery O2 Flow Rate FiO2 01/19/17 07:00 98.4 62 18 109/51 (70) 92 Room Air 98.4 General: Alert, Oriented X3, Cooperative, No acute distress Abdomen: Soft, No tenderness Labs Laboratory Tests Test 01/17/17 11:15 01/17/17 12:41 01/18/17 06:17 01/18/17 11:01 Prothrombin Time 13.4 SEC (11.7-14.0) Prothromb Time International Ratio 1.1 (0.8-1.1) Glucose (Fingerstick) 122 mg/dL (70-99) 128 mg/dL (70-99) 138 mg/dL (70-99) Test 01/18/17 17:48 01/18/17 21:30 01/19/17 03:43 01/19/17 05:12 Glucose (Fingerstick) 139 mg/dL (70-99) 134 mg/dL (70-99) 207 mg/dL (70-99) White Blood Count 2.4 x10^3/uL (4.0-11.0) Red Blood Count 2.77 x10^6/uL (4.30-5.70) Hemoglobin 8.6 g/dL (13.0-17.5) Hematocrit 24.9 % (39.0-53.0) Mean Corpuscular Volume 90 fL (79-100) Mean Corpuscular Hemoglobin 31 pg (25-35) Mean Corpuscular Hemoglobin Concent 35 g/dL (31-37) Red Cell Distribution Width 13.9 % (11.5-14.5) Platelet Count 114 x10^3/uL (140-400) Neutrophils (%) (Auto) 63 % (31-73) Lymphocytes (%) (Auto) 26 % (24-48) Monocytes (%) (Auto) 8 % (0-9) Eosinophils (%) (Auto) 2 % (0-3) Basophils (%) (Auto) 1 % (0-3) Neutrophils # (Auto) 1.5 x10^3uL (1.8-7.7) Lymphocytes # (Auto) 0.6 x10^3/uL (1.0-4.8) Monocytes # (Auto) 0.2 x10^3/uL (0.0-1.1) Eosinophils # (Auto) 0.0 x10^3/uL (0.0-0.7) Basophils # (Auto) 0.0 x10^3/uL (0.0-0.2) Sodium Level 136 mmol/L (136-145) Potassium Level 4.3 mmol/L (3.5-5.1) Chloride Level 102 mmol/L (98-107) Carbon Dioxide Level 29 mmol/L (21-32) Anion Gap 5 (6-14) Blood Urea Nitrogen 26 mg/dL (8-26) Creatinine 1.5 mg/dL (0.7-1.3) Estimated GFR (Cockcroft-Gault) 44.5 BUN/Creatinine Ratio 17 (6-20) Glucose Level 201 mg/dL (70-99) Calcium Level 8.1 mg/dL (8.5-10.1) Phosphorus Level 3.2 mg/dL (2.6-4.7) Magnesium Level 1.7 mg/dL (1.8-2.4) Total Bilirubin 0.5 mg/dL (0.2-1.0) Aspartate Amino Transf (AST/SGOT) 18 U/L (15-37) Alanine Aminotransferase (ALT/SGPT) 21 U/L (16-63) Alkaline Phosphatase 53 U/L (46-116) Total Protein 5.4 g/dL (6.4-8.2) Albumin 2.4 g/dL (3.4-5.0) Albumin/Globulin Ratio 0.8 (1.0-1.7) Laboratory Tests Test 01/18/17 11:01 01/18/17 17:48 01/18/17 21:30 01/19/17 03:43 Glucose (Fingerstick) 138 mg/dL (70-99) 139 mg/dL (70-99) 134 mg/dL (70-99) White Blood Count 2.4 x10^3/uL (4.0-11.0) Red Blood Count 2.77 x10^6/uL (4.30-5.70) Hemoglobin 8.6 g/dL (13.0-17.5) Hematocrit 24.9 % (39.0-53.0) Mean Corpuscular Volume 90 fL (79-100) Mean Corpuscular Hemoglobin 31 pg (25-35) Mean Corpuscular Hemoglobin Concent 35 g/dL (31-37) Red Cell Distribution Width 13.9 % (11.5-14.5) Platelet Count 114 x10^3/uL (140-400) Neutrophils (%) (Auto) 63 % (31-73) Lymphocytes (%) (Auto) 26 % (24-48) Monocytes (%) (Auto) 8 % (0-9) Eosinophils (%) (Auto) 2 % (0-3) Basophils (%) (Auto) 1 % (0-3) Neutrophils # (Auto) 1.5 x10^3uL (1.8-7.7) Lymphocytes # (Auto) 0.6 x10^3/uL (1.0-4.8) Monocytes # (Auto) 0.2 x10^3/uL (0.0-1.1) Eosinophils # (Auto) 0.0 x10^3/uL (0.0-0.7) Basophils # (Auto) 0.0 x10^3/uL (0.0-0.2) Sodium Level 136 mmol/L (136-145) Potassium Level 4.3 mmol/L (3.5-5.1) Chloride Level 102 mmol/L (98-107) Carbon Dioxide Level 29 mmol/L (21-32) Anion Gap 5 (6-14) Blood Urea Nitrogen 26 mg/dL (8-26) Creatinine 1.5 mg/dL (0.7-1.3) Estimated GFR (Cockcroft-Gault) 44.5 BUN/Creatinine Ratio 17 (6-20) Glucose Level 201 mg/dL (70-99) Calcium Level 8.1 mg/dL (8.5-10.1) Phosphorus Level 3.2 mg/dL (2.6-4.7) Magnesium Level 1.7 mg/dL (1.8-2.4) Total Bilirubin 0.5 mg/dL (0.2-1.0) Aspartate Amino Transf (AST/SGOT) 18 U/L (15-37) Alanine Aminotransferase (ALT/SGPT) 21 U/L (16-63) Alkaline Phosphatase 53 U/L (46-116) Total Protein 5.4 g/dL (6.4-8.2) Albumin 2.4 g/dL (3.4-5.0) Albumin/Globulin Ratio 0.8 (1.0-1.7) Test 01/19/17 05:12 Glucose (Fingerstick) 207 mg/dL (70-99) Problem List GOO on TPN now need to correct malnutrition prior to surgery agree with plans per hospitalist Problems: JACK STYLES MD Jan 19, 2017 10:56
[2017-01-19 11:00] VITALS: BP 119/62
--- NOTE | 2017-01-19 11:21 | PDOC ---
Subjective: Subjective: Doing okay. Objective: Objective: Per RN - possible DC today. Vital Signs: Vital Signs Date Time Temp Pulse Resp B/P (MAP) Pulse Ox O2 Delivery O2 Flow Rate FiO2 01/19/17 11:00 97.7 57 18 119/62 (81) 94 Room Air 97.7 Labs: Laboratory Tests Test 01/18/17 17:48 01/18/17 21:30 01/19/17 03:43 01/19/17 05:12 Glucose (Fingerstick) 139 mg/dL 134 mg/dL 207 mg/dL White Blood Count 2.4 x10^3/uL Red Blood Count 2.77 x10^6/uL Hemoglobin 8.6 g/dL Hematocrit 24.9 % Mean Corpuscular Volume 90 fL Mean Corpuscular Hemoglobin 31 pg Mean Corpuscular Hemoglobin Concent 35 g/dL Red Cell Distribution Width 13.9 % Platelet Count 114 x10^3/uL Neutrophils (%) (Auto) 63 % Lymphocytes (%) (Auto) 26 % Monocytes (%) (Auto) 8 % Eosinophils (%) (Auto) 2 % Basophils (%) (Auto) 1 % Neutrophils # (Auto) 1.5 x10^3uL Lymphocytes # (Auto) 0.6 x10^3/uL Monocytes # (Auto) 0.2 x10^3/uL Eosinophils # (Auto) 0.0 x10^3/uL Basophils # (Auto) 0.0 x10^3/uL Sodium Level 136 mmol/L Potassium Level 4.3 mmol/L Chloride Level 102 mmol/L Carbon Dioxide Level 29 mmol/L Anion Gap 5 Blood Urea Nitrogen 26 mg/dL Creatinine 1.5 mg/dL Estimated GFR (Cockcroft-Gault) 44.5 BUN/Creatinine Ratio 17 Glucose Level 201 mg/dL Calcium Level 8.1 mg/dL Phosphorus Level 3.2 mg/dL Magnesium Level 1.7 mg/dL Total Bilirubin 0.5 mg/dL Aspartate Amino Transf (AST/SGOT) 18 U/L Alanine Aminotransferase (ALT/SGPT) 21 U/L Alkaline Phosphatase 53 U/L Total Protein 5.4 g/dL Albumin 2.4 g/dL Albumin/Globulin Ratio 0.8 PE: GEN: NAD, thin LUNGS: CTAB HEART: RRR ABD: S/ND/NT NEURO/PSYCH: A & O 3 A/P: Esophageal dysmotility 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 DC per primary, follow-up w/ surgery. RAS HARRIS Jan 19, 2017 11:21
[2017-01-19] MEDS ORDERED: MAGNESIUM SULFATE 1GM 100 ML IV ONE (12:30)
--- NOTE | 2017-01-20 14:52 | PDOC3 ---
Discharge Summary Visit Information Date of Admission: Jan 14, 2017 Date of Discharge: Jan 19, 2017 Admitting Diagnosis: dysphagia, pain Final Diagnosis 1. Dysphagia: recent admit for same with GI W/U, incl swallow study, EGD. pt/ family had declined PEG at the time . Dr Odonnell aware, pt NPO today 2. GERD/PUD: hx perf.ed ulcer in 2010; gastritis, esophageal ulcer on recent EGD; H.pylori neg, malignancy neg. PPI IV for now, carafate, trial viscous lidocaine 3. Nutrition: start PPN for now 4. DM2: well controlled. add ISS 5. CAD: no acute issues. oral meds currently on hold. 6. HTN: hydralazine PRN 7. CKD3: stable. monitor 8. Prophylaxis: mechanical for now in anticipation of intervention 9,. full code status, Brief Hospital Course Allergies Allergies Coded Allergies Type Severity Reaction Last Updated Verified No Known Drug Allergies 01/17/17 No Vital Signs Vital Signs Date Time Temp Pulse Resp B/P (MAP) Pulse Ox O2 Delivery O2 Flow Rate FiO2 01/19/17 11:00 97.7 57 18 119/62 (81) 94 Room Air 97.7 Lab Results Laboratory Tests Test 01/18/17 17:48 01/18/17 21:30 01/19/17 03:43 01/19/17 05:12 Glucose (Fingerstick) 139 mg/dL (70-99) 134 mg/dL (70-99) 207 mg/dL (70-99) White Blood Count 2.4 x10^3/uL (4.0-11.0) Red Blood Count 2.77 x10^6/uL (4.30-5.70) Hemoglobin 8.6 g/dL (13.0-17.5) Hematocrit 24.9 % (39.0-53.0) Mean Corpuscular Volume 90 fL (79-100) Mean Corpuscular Hemoglobin 31 pg (25-35) Mean Corpuscular Hemoglobin Concent 35 g/dL (31-37) Red Cell Distribution Width 13.9 % (11.5-14.5) Platelet Count 114 x10^3/uL (140-400) Neutrophils (%) (Auto) 63 % (31-73) Lymphocytes (%) (Auto) 26 % (24-48) Monocytes (%) (Auto) 8 % (0-9) Eosinophils (%) (Auto) 2 % (0-3) Basophils (%) (Auto) 1 % (0-3) Neutrophils # (Auto) 1.5 x10^3uL (1.8-7.7) Lymphocytes # (Auto) 0.6 x10^3/uL (1.0-4.8) Monocytes # (Auto) 0.2 x10^3/uL (0.0-1.1) Eosinophils # (Auto) 0.0 x10^3/uL (0.0-0.7) Basophils # (Auto) 0.0 x10^3/uL (0.0-0.2) Sodium Level 136 mmol/L (136-145) Potassium Level 4.3 mmol/L (3.5-5.1) Chloride Level 102 mmol/L (98-107) Carbon Dioxide Level 29 mmol/L (21-32) Anion Gap 5 (6-14) Blood Urea Nitrogen 26 mg/dL (8-26) Creatinine 1.5 mg/dL (0.7-1.3) Estimated GFR (Cockcroft-Gault) 44.5 BUN/Creatinine Ratio 17 (6-20) Glucose Level 201 mg/dL (70-99) Calcium Level 8.1 mg/dL (8.5-10.1) Phosphorus Level 3.2 mg/dL (2.6-4.7) Magnesium Level 1.7 mg/dL (1.8-2.4) Total Bilirubin 0.5 mg/dL (0.2-1.0) Aspartate Amino Transf (AST/SGOT) 18 U/L (15-37) Alanine Aminotransferase (ALT/SGPT) 21 U/L (16-63) Alkaline Phosphatase 53 U/L (46-116) Total Protein 5.4 g/dL (6.4-8.2) Albumin 2.4 g/dL (3.4-5.0) Albumin/Globulin Ratio 0.8 (1.0-1.7) Test 01/19/17 11:42 Glucose (Fingerstick) 128 mg/dL (70-99) Brief Hospital Course Mr. Pittman is a 86 old re-admit, sent home after GERD and open ulcer of esophagus diagnosis, PEG considered, he declined at that time, re-admit with unabel to eat, pain EGD done again, could not pass well, and now duodenal stricture and ulcer, on PPI as able, but unable to take PO and IV not avail, H2 simeon given then malnutrition worsened, Gen surg deger JG tube, need support WILL NEED TPN for a week, then re-eval for surg, plan SNU, PT and OT Discharge Information Condition at Discharge: Improved Follow Up: Weeks Disposition/Orders: D/C to Another Facility (SNU) Scheduled Cholecalciferol (Vitamin D3) (Vitamin D3), 1 TAB PO DAILY, (Reported) Ciprofloxacin Hcl (Cipro), 1 TAB PO BID, (Reported) Cyanocobalamin (Vitamin B-12) (Vitamin B-12), 1 TAB PO DAILY, (Reported) Famotidine (Famotidine), 10 MG PO HS, (Reported) Glimepiride (Glimepiride), 1 TAB PO DAILY, (Reported) Metformin Hcl (Metformin Hcl), 1,000 MG PO DAILYWBKFT, (Reported) Ondansetron Hcl (Zofran), 1 TAB PO Q4HRS, (Reported) Pantoprazole Sodium (Pantoprazole Sodium), 1 TAB PO DAILY, (Reported) Miscellaneous Medications Calcium Carb/Magnesium Hydrox (Rolaids Chewable Tablet), 1 EACH PO, (Reported) [Vapoinhaler], MARY, (Reported) Patient Instructions Patient Instructions > 30min JENNIFER CORTÉS MD Jan 20, 2017 14:52
== END 2017-01-19 14:15 | DRG 380 ==
LOC: ER 12:09 → 5 SOUTH 14:00
PROVIDERS: ADMIT Internal Medicine; ATTEND Internal Medicine
PROC: 02HV33Z Insertion of Infusion Device into Superior Vena Cava, Percutaneous Approach (ICD-10-PCS; 2017-01-14)
PROC: 0DJ08ZZ Inspection of Upper Intestinal Tract, Via Natural or Artificial Opening Endoscopic (ICD-10-PCS; principal; 2017-01-17 17:30)
DX: K22.10 Ulcer of esophagus without bleeding (principal); N17.0 Acute kidney failure with tubular necrosis; E43 Unspecified severe protein-calorie malnutrition; Z68.1 Body mass index [BMI] 19.9 or less, adult; K31.5 Obstruction of duodenum; E11.22 Type 2 diabetes mellitus with diabetic chronic kidney disease; E78.5 Hyperlipidemia, unspecified; I12.9 Hypertensive chronic kidney disease with stage 1 through stage 4 chronic kidney disease, or unspecified chronic kidney disease; I25.10 Atherosclerotic heart disease of native coronary artery without angina pectoris; K22.4 Dyskinesia of esophagus; K26.9 Duodenal ulcer, unspecified as acute or chronic, without hemorrhage or perforation; N18.3 Chronic kidney disease, stage 3 (moderate); Z82.49 Family history of ischemic heart disease and other diseases of the circulatory system; Z87.11 Personal history of peptic ulcer disease; Z87.19 Personal history of other diseases of the digestive system; Z87.891 Personal history of nicotine dependence; Z90.49 Acquired absence of other specified parts of digestive tract; Z95.1 Presence of aortocoronary bypass graft; I25.2 Old myocardial infarction; K21.0 Gastro-esophageal reflux disease with esophagitis
CPT/HCPCS: 36415; 36569; 71010; 80048; 80053; 82962; 83690; 83735; 84100; 85025; 85610; J0610; J0690; J1815; J2704; J3475; J7042; J7060; J7120; S0028; 99285-25

== ENCOUNTER 2017-02-07 06:06 | Inpatient (IN) | payer MEDICARE ==
[~2017-02-07] VITALS: Ht 182.9 cm; Wt 59.6 kg
[2017-02-07] VITALS (9 sets, daily range): BP systolic 112–146; BP diastolic 57–72
[~2017-02-07 06:06] MED LIST changes: +INSU100C4 SQ; +IPRA3AMP NEB; +LIDOCAINE PO; +ONDANSETRON IV; +PEPCID IV
[2017-02-07] MEDS ORDERED: HYDROmorphone 2 MG/ML VIAL IV PRN (07:00)
[2017-02-07] MEDS ORDERED: LIDOCAINE 1% PF 2 ML VIAL. ID PRN (07:00)
[2017-02-07] MEDS ORDERED: ONDANSETRON PF 4 MG/2 ML VIAL. IV PRN ×2 (07:00→12:00)
[2017-02-07] MEDS ORDERED: PROCHLORPERAZINE 10 MG/2 ML VIAL. IV PRN (07:00)
[2017-02-07] MEDS: IV RINGERS,LACTATED 1000ML 1,000 ML IV SCH ×4 (07:00→20:32)
[2017-02-07] MEDS ORDERED: fentaNYL PF VIAL 100 MCG/2 ML VIAL IV PRN ×2 (07:00)
[2017-02-07] MEDS ORDERED: MORPHINE SULFATE 2 MG/ML DISP.SYRIN. IV PRN (07:00)
[2017-02-07 07:03] LABS: BASO % 0 % (0-3); EOS % 0 % (0-3); HEMOGLOBIN 9.5 g/dL (13.0-17.5); LYMPH # 1.2 x10^3/uL (1.0-4.8); LYMPH % 15 % (24-48); MEAN CORPUSCULAR HEMOGLOBIN 30 pg (25-35); MEAN CORPUSCULAR HGB CONC 34 g/dL (31-37); MEAN CORPUSCULAR VOLUME 87 fL (79-100); MONO % 7 % (0-9); NEUT % 77 % (31-73); PLATELET COUNT 206 x10^3/uL (140-400); RED CELL DISTRIBUTION WIDTH 13.8 % (11.5-14.5); WHITE BLOOD COUNT 8.1 x10^3/uL (4.0-11.0)
[2017-02-07 07:11] LABS: INR 1.2 (0.8-1.1); PROTHROMBIN TIME PATIENT 14.2 SEC (11.7-14.0)
[2017-02-07 07:13] LABS: CALCIUM 9.1 mg/dL (8.5-10.1); CREATININE 1.4 mg/dL (0.7-1.3); GFR 48.2; POTASSIUM 4.6 mmol/L (3.5-5.1)
[2017-02-07 07:19] LABS: ALBUMIN 2.7 g/dL (3.4-5.0); ALBUMIN/GLOBULIN RATIO 0.6 (1.0-1.7); TOTAL BILIRUBIN 0.4 mg/dL (0.2-1.0); TOTAL PROTEIN 7.2 g/dL (6.4-8.2)
[2017-02-07] MEDS ORDERED: ETOMIDATE 20 MG/10 ML VIAL. IV ONE (07:29)
[2017-02-07] MEDS ORDERED: LIDOCAINE 2% PF Vial for OR 5 ML VIAL. ONE (07:29)
[2017-02-07] MEDS ORDERED: ROCURONIUM 100 MG/10 ML VIAL. ONE ×2 (07:29→09:30)
[2017-02-07] MEDS ORDERED: fentaNYL PF VIAL 100 MCG/2 ML VIAL ONE ×3 (07:29→09:21)
--- NOTE | 2017-02-07 07:53 | PDOC ---
SURGICAL PROGRESS NOTE Subjective 86 yo M with gastric outlet obstruction, secondary to benign ulcer disease. Pt requests "to be fixed where I can eat and drink" Office note H&P reviewed and unchanged. Pt examined. R/B/A d/w pt and pt's family using drawing. Risks, including, but not limited to: bleeding, infection, damage to surrounding structures, risk of anesthesia, risk of leak. Pt is at increased risk for perioperative complications secondary to severe malnutrition. However, labs reassuring with normal WBC. Nutrition status should be somewhat improved with the use of TPN. Suspect mild elevation of LFTs and glu secondary to TPN TO OR for antrectomy and vagotomy with Kb en Y reconstruction, J-tube placement. Vital Signs Vital Signs Date Time Temp Pulse Resp B/P (MAP) Pulse Ox O2 Delivery O2 Flow Rate FiO2 02/07/17 06:36 98.1 115 20 93 98.1 02/07/17 06:22 115/68 Room Air Labs Laboratory Tests Test 02/07/17 06:30 White Blood Count 8.1 x10^3/uL (4.0-11.0) Red Blood Count 3.20 x10^6/uL (4.30-5.70) Hemoglobin 9.5 g/dL (13.0-17.5) Hematocrit 28.0 % (39.0-53.0) Mean Corpuscular Volume 87 fL (79-100) Mean Corpuscular Hemoglobin 30 pg (25-35) Mean Corpuscular Hemoglobin Concent 34 g/dL (31-37) Red Cell Distribution Width 13.8 % (11.5-14.5) Platelet Count 206 x10^3/uL (140-400) Neutrophils (%) (Auto) 77 % (31-73) Lymphocytes (%) (Auto) 15 % (24-48) Monocytes (%) (Auto) 7 % (0-9) Eosinophils (%) (Auto) 0 % (0-3) Basophils (%) (Auto) 0 % (0-3) Neutrophils # (Auto) 6.3 x10^3uL (1.8-7.7) Lymphocytes # (Auto) 1.2 x10^3/uL (1.0-4.8) Monocytes # (Auto) 0.6 x10^3/uL (0.0-1.1) Eosinophils # (Auto) 0.0 x10^3/uL (0.0-0.7) Basophils # (Auto) 0.0 x10^3/uL (0.0-0.2) Prothrombin Time 14.2 SEC (11.7-14.0) Prothromb Time International Ratio 1.2 (0.8-1.1) Activated Partial Thromboplast Time 36 SEC (24-38) Sodium Level 140 mmol/L (136-145) Potassium Level 4.6 mmol/L (3.5-5.1) Chloride Level 104 mmol/L (98-107) Carbon Dioxide Level 26 mmol/L (21-32) Anion Gap 10 (6-14) Blood Urea Nitrogen 48 mg/dL (8-26) Creatinine 1.4 mg/dL (0.7-1.3) Estimated GFR (Cockcroft-Gault) 48.2 BUN/Creatinine Ratio 34 (6-20) Glucose Level 206 mg/dL (70-99) Calcium Level 9.1 mg/dL (8.5-10.1) Total Bilirubin 0.4 mg/dL (0.2-1.0) Aspartate Amino Transf (AST/SGOT) 46 U/L (15-37) Alanine Aminotransferase (ALT/SGPT) 86 U/L (16-63) Alkaline Phosphatase 98 U/L (46-116) Total Protein 7.2 g/dL (6.4-8.2) Albumin 2.7 g/dL (3.4-5.0) Albumin/Globulin Ratio 0.6 (1.0-1.7) Laboratory Tests Test 02/07/17 06:30 White Blood Count 8.1 x10^3/uL (4.0-11.0) Red Blood Count 3.20 x10^6/uL (4.30-5.70) Hemoglobin 9.5 g/dL (13.0-17.5) Hematocrit 28.0 % (39.0-53.0) Mean Corpuscular Volume 87 fL (79-100) Mean Corpuscular Hemoglobin 30 pg (25-35) Mean Corpuscular Hemoglobin Concent 34 g/dL (31-37) Red Cell Distribution Width 13.8 % (11.5-14.5) Platelet Count 206 x10^3/uL (140-400) Neutrophils (%) (Auto) 77 % (31-73) Lymphocytes (%) (Auto) 15 % (24-48) Monocytes (%) (Auto) 7 % (0-9) Eosinophils (%) (Auto) 0 % (0-3) Basophils (%) (Auto) 0 % (0-3) Neutrophils # (Auto) 6.3 x10^3uL (1.8-7.7) Lymphocytes # (Auto) 1.2 x10^3/uL (1.0-4.8) Monocytes # (Auto) 0.6 x10^3/uL (0.0-1.1) Eosinophils # (Auto) 0.0 x10^3/uL (0.0-0.7) Basophils # (Auto) 0.0 x10^3/uL (0.0-0.2) Prothrombin Time 14.2 SEC (11.7-14.0) Prothromb Time International Ratio 1.2 (0.8-1.1) Activated Partial Thromboplast Time 36 SEC (24-38) Sodium Level 140 mmol/L (136-145) Potassium Level 4.6 mmol/L (3.5-5.1) Chloride Level 104 mmol/L (98-107) Carbon Dioxide Level 26 mmol/L (21-32) Anion Gap 10 (6-14) Blood Urea Nitrogen 48 mg/dL (8-26) Creatinine 1.4 mg/dL (0.7-1.3) Estimated GFR (Cockcroft-Gault) 48.2 BUN/Creatinine Ratio 34 (6-20) Glucose Level 206 mg/dL (70-99) Calcium Level 9.1 mg/dL (8.5-10.1) Total Bilirubin 0.4 mg/dL (0.2-1.0) Aspartate Amino Transf (AST/SGOT) 46 U/L (15-37) Alanine Aminotransferase (ALT/SGPT) 86 U/L (16-63) Alkaline Phosphatase 98 U/L (46-116) Total Protein 7.2 g/dL (6.4-8.2) Albumin 2.7 g/dL (3.4-5.0) Albumin/Globulin Ratio 0.6 (1.0-1.7) JACK STYLES MD Feb 07, 2017 07:53
[2017-02-07] MEDS ORDERED: DEXAMETHASONE SOD PHOS 20 MG/5 ML VIAL. ONE (08:16)
[2017-02-07] MEDS ORDERED: ESMOLOL 100 MG/10 ML VIAL. IV ONE (08:16)
[2017-02-07] MEDS ORDERED: PHENYLEPHRINE 10 MG/ML VIAL. ONE (08:16)
[2017-02-07] MEDS ORDERED: ONDANSETRON PF 4 MG/2 ML VIAL. ONE (08:16)
[2017-02-07] MEDS ORDERED: LABETALOL 20 MG/4 ML DISP.SYRIN. ONE (08:50)
[2017-02-07] MEDS ORDERED: SURGICEL HEMOSTAT 4X8 EACH. ONE (09:57)
[2017-02-07 11:06] LABS: ART BE ISTAT -5 mmol/L (0-3); ART GLUC ISTAT 231 mg/dL (70-99); ART HCO3 ISTAT 20 mmol/L (21-28); ART HCT ISTAT 29 % (37-52); ART HGB ISTAT 9.9 g/dL (14-18); ART NA ISTAT 140 mmol/L (135-145); ART PCO2 ISTAT 36 mmHg (35-45); ART PH ISTAT 7.37 (7.35-7.45); ART PO2 ISTAT 305 mmHg (75-100); ART SAT O2 SAT 100 % (95-99); ART TCO2 ISTAT 21 mmol/L (21-32); TOSPEC ART
[2017-02-07] MEDS ORDERED: ALBUMIN HUMAN 5% 500 ML IV ONE (11:06)
[2017-02-07] MEDS ORDERED: NEOSTIGMINE 10 MG/10 ML VIAL. ONE (11:20)
[2017-02-07] MEDS ORDERED: GLYCOPYRROLATE 1 MG/5 ML VIAL. ONE (11:20)
[2017-02-07] MEDS: IV NORMAL SALINE 1000ML BAG 1,000 ML IV SCH (11:49)
[2017-02-07] MEDS ORDERED: NALOXONE 0.4 MG/ML VIAL. IV PRN (12:00)
[2017-02-07] MEDS ORDERED: MORPHINE SULFATE/PF 30 ML IV PRN (12:00)
[2017-02-07] MEDS ORDERED: 0.9 % SODIUM CHLORIDE 10 ML DISP.SYRIN. IV PRN (12:00)
--- NOTE | 2017-02-07 12:16 | PDOC4 ---
OPERATIVE NOTE Date: Date: Feb 07, 2017 Pre-Op Diagnosis: Gastric outlet obstruction Post-Op Diagnosis: same Procedure Performed: Exploratory laparotomy, Extensive lysis of adhesions, removal of abdominal wall mass (favor dystrophic bone formation), removal of old mesh, repair of incisional hernia, Antrectomy with Kb en Y reconstruction in an antecolic position, J-tube placement Surgeon: Calvin Styles Anesthesia Type: GETA Blood Loss: 100 Specimans Obtained: Abd wall mass, mesh, distal stomach Findings: Dystrophic bone abdominal mass mass, mesh, extensive adhesions, chronic scarring of the gastric outlet, no obvious evidence of malignancy Complications: none Operative Note: After obtaining informed consent, patient was taken to the OR, induced under GETA and prepped in the usual fashion. Previous midline incision was reopened using cautery. A large prominent mass was noted to extended the majority of the wound, c/w dystrophic bone with evidence of previous suture within it. This was resected and sent to pathology. In addition, a large piece of mesh was involved in this process and also removed. Ultimately, the previous incisional hernia was closed at the end of the procedure. The abdominal cavity was entered and an extensive, essentially locked in abdomen was discovered. An extensive lysis of adhesions was performed which was the majority of the procedure. The stomach was dissected out. There was extensive scarring at the pylorus/duodenum and difficult to delineate structures. Some fatty tissue was noted in the area, which may be a previous billie patch. The stomach was divided at the suspected pylorus using a contour stapler. More distal dissection was not appropriate secondary to scarring a risk of injury to other structures. Lesser curve and greater curve were dissected using ligasure device to approximately level of the incisura, although remains difficult to distinguish structures. Liver edge raw from dissection, but no obvious bleeding. Piece of Surgicel placed. Stomach resected at incisura with KAI. Distal stomach sent to pathology. No evidence of malignancy. End to side stapled gastrojejunostomy created with KAI and the end of this sealed off using 3 0 PDS and 3 0 vicryl to a Kb limb created 30 cm distal to ligament of Treitz. Jejunojejunostomy created using a KAI stapled anastomosis and the end of this sealed using 3 0 PDS and 3 0 vicryl. Both anastomosis under no tension , completely viable, patent and without evidence of leakage. NGT placed across the stomach anastomosis. A J-tube placed distal to the jejunojejunostomy through 3 0 vicryl pursestring x 2. This was tacked to the abdominal wall using multiple interrupted 3 0 vicryl. Abdominal cavity copiously irrigated. No evidence of bleeding or other pathology. 19 SULMA drain placed in left upper quadrant. Fascia repaired with 0 PDS looped x 2. Skin repaired with jan drain, 3 0 vicryl and 4 0 monocryl. Patient tolerated procedure well and sent to PACU in stable condition. All counts were correct. There were no immediate complications. CALVIN STYLES MD Feb 07, 2017 12:16
--- NOTE | 2017-02-07 13:06 | RAD ---
Indication postop. Protocol study. A single view of the abdomen was obtained. Note is made of a preoperative exam 01/02/2017. The abdominal gas pattern is unremarkable. Postoperative changes are noted in the left abdomen. Nasogastric tube is in the body of the stomach. Drains and Cross drains are noted. An unexpected finding is not seen. IMPRESSION: No unexpected finding seen in a postop abdomen
[2017-02-07] MEDS ORDERED: INSULIN ASPART 100 UNIT/ML 10ML VIAL. SQ ONE ×2 (14:01→14:15)
[2017-02-07] MEDS ORDERED: PNEUMOCOCCAL VAX SCREEN BY RX. MC ONE (16:15)
[2017-02-07] MEDS: FAMOTIDINE 20 MG/2 ML VIAL IVP SCH (20:32)
[2017-02-08] VITALS (28 sets, daily range): BP systolic 130–167; BP diastolic 63–87
[2017-02-08 05:40] LABS: BASO % 0 % (0-3); EOS % 0 % (0-3); LYMPH # 0.7 x10^3/uL (1.0-4.8); LYMPH % 7 % (24-48); MEAN CORPUSCULAR HEMOGLOBIN 29 pg (25-35); MEAN CORPUSCULAR HGB CONC 33 g/dL (31-37); MEAN CORPUSCULAR VOLUME 88 fL (79-100); MONO % 5 % (0-9); NEUT % 87 % (31-73); PLATELET COUNT 150 x10^3/uL (140-400); RED BLOOD COUNT 2.38 x10^6/uL (4.30-5.70); RED CELL DISTRIBUTION WIDTH 14.1 % (11.5-14.5); WHITE BLOOD COUNT 9.5 x10^3/uL (4.0-11.0)
[2017-02-08 05:45] LABS: CALCIUM 7.6 mg/dL (8.5-10.1); CREATININE 1.4 mg/dL (0.7-1.3); GFR 48.2; POTASSIUM 5.4 mmol/L (3.5-5.1)
[2017-02-08 09:27] LABS: PLT ESTIMATE ADEQUATE (ADEQUATE)
[2017-02-08] MEDS ORDERED: DEXTROSE 50% 25 GM / 50ML DISP.SYRIN. IV PRN (09:30)
[2017-02-08] MEDS ORDERED: IPRATRPIUM/ALBUTEROL 0.5/2.5MG 3 ML NEBU. NEB PRN (09:30)
[2017-02-08] MEDS ORDERED: ALBUTEROL SULFATE 2.5 MG/3 ML NEBU. NEB PRN (09:30)
[2017-02-08] MEDS: ENOXAPARIN 30 MG/0.3 ML SYRINGE. SQ SCH (10:03)
[2017-02-08] MEDS: IV NORMAL SALINE 1000ML BAG 1,000 ML IV SCH (11:49)
[2017-02-08] MEDS: INSULIN ASPART 300 UNITS/3 ML INSULN.PEN SQ SCH ×2 (12:30→17:00)
--- NOTE | 2017-02-08 12:31 | PDOC ---
SURGICAL PROGRESS NOTE Subjective Pt with mild confusion, notes throat pain and abd pain Vital Signs Vital Signs Date Time Temp Pulse Resp B/P (MAP) Pulse Ox O2 Delivery O2 Flow Rate FiO2 02/08/17 12:00 96 157/75 (102) 100 Room Air 02/08/17 11:00 97.6 97.6 02/08/17 07:00 22 02/07/17 18:00 1.0 I&O Intake and Output 02/09/17 07:00 Intake Total 375 ml Output Total 740 ml Balance -365 ml Blood Product IV Normal Saline Flush 375 ml Output Urine Total 740 ml PATIENT HAS A MARTINEZ: Yes (accurate i and os) General: Alert, No acute distress Abdomen: Soft, Other (mild appropriate TTP, dressing c/d/i, SULMA serosang) Labs Laboratory Tests Test 02/07/17 06:30 02/07/17 10:53 02/07/17 12:26 02/07/17 13:27 White Blood Count 8.1 x10^3/uL (4.0-11.0) Red Blood Count 3.20 x10^6/uL (4.30-5.70) Hemoglobin 9.5 g/dL (13.0-17.5) Hematocrit 28.0 % (39.0-53.0) Mean Corpuscular Volume 87 fL (79-100) Mean Corpuscular Hemoglobin 30 pg (25-35) Mean Corpuscular Hemoglobin Concent 34 g/dL (31-37) Red Cell Distribution Width 13.8 % (11.5-14.5) Platelet Count 206 x10^3/uL (140-400) Neutrophils (%) (Auto) 77 % (31-73) Lymphocytes (%) (Auto) 15 % (24-48) Monocytes (%) (Auto) 7 % (0-9) Eosinophils (%) (Auto) 0 % (0-3) Basophils (%) (Auto) 0 % (0-3) Neutrophils # (Auto) 6.3 x10^3uL (1.8-7.7) Lymphocytes # (Auto) 1.2 x10^3/uL (1.0-4.8) Monocytes # (Auto) 0.6 x10^3/uL (0.0-1.1) Eosinophils # (Auto) 0.0 x10^3/uL (0.0-0.7) Basophils # (Auto) 0.0 x10^3/uL (0.0-0.2) Prothrombin Time 14.2 SEC (11.7-14.0) Prothromb Time International Ratio 1.2 (0.8-1.1) Activated Partial Thromboplast Time 36 SEC (24-38) Sodium Level 140 mmol/L (136-145) Potassium Level 4.6 mmol/L (3.5-5.1) Chloride Level 104 mmol/L (98-107) Carbon Dioxide Level 26 mmol/L (21-32) Anion Gap 10 (6-14) Blood Urea Nitrogen 48 mg/dL (8-26) Creatinine 1.4 mg/dL (0.7-1.3) Estimated GFR (Cockcroft-Gault) 48.2 BUN/Creatinine Ratio 34 (6-20) Glucose Level 206 mg/dL (70-99) 231 mg/dL (70-99) Calcium Level 9.1 mg/dL (8.5-10.1) Total Bilirubin 0.4 mg/dL (0.2-1.0) Aspartate Amino Transf (AST/SGOT) 46 U/L (15-37) Alanine Aminotransferase (ALT/SGPT) 86 U/L (16-63) Alkaline Phosphatase 98 U/L (46-116) Total Protein 7.2 g/dL (6.4-8.2) Albumin 2.7 g/dL (3.4-5.0) Albumin/Globulin Ratio 0.6 (1.0-1.7) Bedside Hemoglobin (Calculated) 9.9 g/dL (14-18) Bedside Hematocrit 29 % (37-52) Bedside Arterial pH 7.37 (7.35-7.45) Arterial Blood pH (Temp corrected) 7.38 Bedside Arterial pCO2 36 mmHg (35-45) Arterial Blood pCO2 (Temp correct) 35 mmHg Bedside Arterial pO2 305 mmHg (75-100) Arterial Blood pO2 (Temp corrected) 302 mmHg Bedside Arterial HCO3 20 mmol/L (21-28) Bedside Arterial Total CO2 21 mmol/L (21-32) Arterial Bld O2 Saturation (Measur) 100 % (95-99) Bedside Arterial Blood Base Excess -5 mmol/L (0-3) Bedside FiO2 78.0 Bedside Sodium 140 mmol/L (135-145) Bedside Potassium 5.0 mmol/L (3.5-5.0) Bedside Ionized Calcium (Fany) 1.10 mmol/L (1.13-1.32) Glucose (Fingerstick) 215 mg/dL (70-99) 239 mg/dL (70-99) Test 02/08/17 05:30 White Blood Count 9.5 x10^3/uL (4.0-11.0) Red Blood Count 2.38 x10^6/uL (4.30-5.70) Hemoglobin 7.0 g/dL (13.0-17.5) Hematocrit 21.0 % (39.0-53.0) Mean Corpuscular Volume 88 fL (79-100) Mean Corpuscular Hemoglobin 29 pg (25-35) Mean Corpuscular Hemoglobin Concent 33 g/dL (31-37) Red Cell Distribution Width 14.1 % (11.5-14.5) Platelet Count 150 x10^3/uL (140-400) Neutrophils (%) (Auto) 87 % (31-73) Lymphocytes (%) (Auto) 7 % (24-48) Monocytes (%) (Auto) 5 % (0-9) Eosinophils (%) (Auto) 0 % (0-3) Basophils (%) (Auto) 0 % (0-3) Neutrophils # (Auto) 8.3 x10^3uL (1.8-7.7) Lymphocytes # (Auto) 0.7 x10^3/uL (1.0-4.8) Monocytes # (Auto) 0.5 x10^3/uL (0.0-1.1) Eosinophils # (Auto) 0.0 x10^3/uL (0.0-0.7) Basophils # (Auto) 0.0 x10^3/uL (0.0-0.2) Segmented Neutrophils % 81 % (35-66) Band Neutrophils % 5 % (0-9) Lymphocytes % 9 % (24-48) Monocytes % 5 % (0-10) Platelet Estimate Adequate (ADEQUATE) Sodium Level 140 mmol/L (136-145) Potassium Level 5.4 mmol/L (3.5-5.1) Chloride Level 108 mmol/L (98-107) Carbon Dioxide Level 22 mmol/L (21-32) Anion Gap 10 (6-14) Blood Urea Nitrogen 42 mg/dL (8-26) Creatinine 1.4 mg/dL (0.7-1.3) Estimated GFR (Cockcroft-Gault) 48.2 Glucose Level 219 mg/dL (70-99) Calcium Level 7.6 mg/dL (8.5-10.1) Laboratory Tests Test 02/07/17 13:27 02/08/17 05:30 Glucose (Fingerstick) 239 mg/dL (70-99) White Blood Count 9.5 x10^3/uL (4.0-11.0) Red Blood Count 2.38 x10^6/uL (4.30-5.70) Hemoglobin 7.0 g/dL (13.0-17.5) Hematocrit 21.0 % (39.0-53.0) Mean Corpuscular Volume 88 fL (79-100) Mean Corpuscular Hemoglobin 29 pg (25-35) Mean Corpuscular Hemoglobin Concent 33 g/dL (31-37) Red Cell Distribution Width 14.1 % (11.5-14.5) Platelet Count 150 x10^3/uL (140-400) Neutrophils (%) (Auto) 87 % (31-73) Lymphocytes (%) (Auto) 7 % (24-48) Monocytes (%) (Auto) 5 % (0-9) Eosinophils (%) (Auto) 0 % (0-3) Basophils (%) (Auto) 0 % (0-3) Neutrophils # (Auto) 8.3 x10^3uL (1.8-7.7) Lymphocytes # (Auto) 0.7 x10^3/uL (1.0-4.8) Monocytes # (Auto) 0.5 x10^3/uL (0.0-1.1) Eosinophils # (Auto) 0.0 x10^3/uL (0.0-0.7) Basophils # (Auto) 0.0 x10^3/uL (0.0-0.2) Segmented Neutrophils % 81 % (35-66) Band Neutrophils % 5 % (0-9) Lymphocytes % 9 % (24-48) Monocytes % 5 % (0-10) Platelet Estimate Adequate (ADEQUATE) Sodium Level 140 mmol/L (136-145) Potassium Level 5.4 mmol/L (3.5-5.1) Chloride Level 108 mmol/L (98-107) Carbon Dioxide Level 22 mmol/L (21-32) Anion Gap 10 (6-14) Blood Urea Nitrogen 42 mg/dL (8-26) Creatinine 1.4 mg/dL (0.7-1.3) Estimated GFR (Cockcroft-Gault) 48.2 Glucose Level 219 mg/dL (70-99) Calcium Level 7.6 mg/dL (8.5-10.1) Assessment/Plan s/p gastrectomy one unit PRBCs transfused start J-tube feeds d/w pt and pt's Problems: JACK STYLES MD Feb 08, 2017 12:31
--- NOTE | 2017-02-08 13:38 | PDOC2 ---
CONSULT Date of Consult Date of Consult DATE: 02/08/17 TIME: 13:31 Reason for Consult Reason for Consult: IM management Referring Physician Referring Physician: dr. Falcon Identification/Chief Complaint Chief Complaint post gastrectomy Problems: Source Source: Chart review History of Present Illness Reason for Visit: 86yo M, recently diagnosed with gastric outlet obstruction, was transferred from for sx. 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 Payne overnight. 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 hb 7, 1u PRBC running. we are called for IM management. Past Medical History Cardiovascular: CAD, HTN GI: Peptic Ulcer disease Endocrine: Diabetes Past Surgical History Past Surgical History: CABG, Other Family History Family History: No Significant Social History No ALCOHOL: none Drugs: None Lives: with Family Current Medications Current Medications Current Medications Ondansetron HCl (Zofran) 4 mg PRN Q6HRS PRN IV NAUSEA/VOMITING; Start at 07:00; Stop 02/08/17 at 06:59; Status DC Fentanyl Citrate (Fentanyl 2ml Vial) 25 mcg PRN Q5MIN PRN IV MILD PAIN Last administered on 02/07/17 14:08; Start 02/07/17 at 07:00; Stop 02/08/17 at 06 :59; Status DC Fentanyl Citrate (Fentanyl 2ml Vial) 50 mcg PRN Q5MIN PRN IV MODERATE PAIN; Start 02/07/17 at 07:00; Stop 02/08/17 at 06:59; Status DC Morphine Sulfate 1 mg PRN Q10MIN PRN IV SEVERE PAIN; Start 02/07/17 at 07:00; Stop 02/08/17 at 06:59; Status DC Ringer's Solution 1,000 ml @ 0 mls/hr Q0M IV Last administered on 02/07/17 13:45; Start 02/07/17 at 07:00; Stop 02/07/17 at 18:59; Status DC Lidocaine HCl (Xylocaine-Mpf 1% Vial) 2 ml PRN 1X PRN ID PRIOR TO IV START; Start 02/07/17 at 07:00; Stop 02/08/17 at 06:59; Status DC Hydromorphone HCl (Dilaudid) 0.5 mg PRN Q10MIN PRN IV SEV PAIN, Second choice; Start 02/07/17 at 07:00; Stop 02/08/17 at 06:59; Status DC Prochlorperazine Edisylate (Compazine) 5 mg PACU PRN PRN IV NAUSEA, MRX1; Start 02/07/17 at 07:00; Stop 02/08/17 at 06:59; Status DC Cefazolin Sodium/ Dextrose 50 ml @ 100 mls/hr 1X PREOP PRN IV PRIOR TO PROCEDURE; Start 02/07/17 at 06:00; Stop 02/07/17 at 18:00; Status DC Cefoxitin Sodium 2 gm/Sodium Chloride 100 ml @ 200 mls/hr 1X ONCE IV ; Start 02/07/17 at 07:00; Stop 02/07/17 at 07:29; Status UNV Cefoxitin Sodium 100 ml @ 200 mls/hr ONCE ONCE IV Last administered on t 08:16; Start 02/07/17 at 07:15; Stop 02/07/17 at 07:44; Status DC Lidocaine HCl (Lidocaine Pf 2% Vial) 5 ml STK-MED ONCE .ROUTE ; Start 02/07/17 at 07:29; Stop 02/07/17 at 07:30; Status DC Etomidate (Amidate) 20 mg STK-MED ONCE IV ; Start 02/07/17 at 07:29; Stop 02/14 at 07:30; Status DC Fentanyl Citrate (Fentanyl 2ml Vial) 100 mcg STK-MED ONCE .ROUTE ; Start at 07:29; Stop 02/07/17 at 07:30; Status DC Rocuronium [place] (Zemuron) 100 mg STK-MED ONCE .ROUTE ; Start 02/07/17 at 07: 29; Stop 02/07/17 at 07:30; Status DC Dexamethasone Sodium Phosphate (Decadron) 20 mg STK-MED ONCE .ROUTE ; Start 02/14 at 08:16; Stop 02/07/17 at 08:17; Status DC Ondansetron HCl (Zofran) 4 mg STK-MED ONCE .ROUTE ; Start 10/10/17 at 08:16; Stop 02/07/17 at 08:17; Status DC Esmolol HCl (Brevibloc) 100 mg STK-MED ONCE IV ; Start 02/07/17 at 08:16; Stop 02/07/17 at 08:17; Status DC Phenylephrine HCl (Cheng-Synephrine Inj) 10 mg STK-MED ONCE .ROUTE ; Start at 08:16; Stop 02/07/17 at 08:17; Status DC Fentanyl Citrate (Fentanyl 2ml Vial) 100 mcg STK-MED ONCE .ROUTE ; Start at 08:17; Stop 02/07/17 at 08:18; Status DC Labetalol HCl (Normodyne) 20 mg STK-MED ONCE .ROUTE ; Start 02/07/17 at 08:50; Stop 02/07/17 at 08:51; Status DC Fentanyl Citrate (Fentanyl 2ml Vial) 100 mcg STK-MED ONCE .ROUTE ; Start at 09:21; Stop 02/07/17 at 09:22; Status DC Rocuronium [place] (Zemuron) 100 mg STK-MED ONCE .ROUTE ; Start 02/07/17 at 09: 30; Stop 02/07/17 at 09:31; Status DC Cellulose 1 each STK-MED ONCE .ROUTE Last administered on 02/07/17t 10:57; Start 02/07/17 at 09:57; Stop 02/07/17 at 10:57; Status DC Albumin Human 500 ml @ As Directed STK-MED ONCE IV ; Start 02/07/17 at 11:06; Stop 02/07/17 at 11:07; Status DC Neostigmine Methylsulfate (Bloxiverz) 10 mg STK-MED ONCE .ROUTE ; Start at 11:20; Stop 02/07/17 at 11:21; Status DC Glycopyrrolate (Robinul) 1 mg STK-MED ONCE .ROUTE ; Start 02/07/17 at 11:20; Stop 02/07/17 at 11:21; Status DC Famotidine (Pepcid) 20 mg QHS IVP Last administered on 02/07/17t 20:32; Start 02/07/17 at 21:00 Enoxaparin Sodium (Lovenox 30mg Syringe) 30 mg Q24H SQ Last administered on 10:03; Start 02/08/17 at 08:00 Sodium Chloride (Normal Saline Flush) 3 ml QSHIFT PRN IV AFTER MEDS AND BLOOD DRAWS; Start 02/07/17 at 12:00 Ringer's Solution 1,000 ml @ 100 mls/hr Q10H IV Last administered on 20:32; Start 02/07/17 at 11:49 Naloxone HCl (Narcan) 0.4 mg PRN Q2MIN PRN IV SEE INSTRUCTIONS; Start at 12:00 Sodium Chloride 1,000 ml @ 25 mls/hr Q24H IV Last administered on 02/07/17 11:49; Start 02/07/17 at 11:49 Morphine Sulfate 30 ml @ 0 mls/hr CONT PRN PRN IV PROTOCOL Last administered on 02/07/17 15:13; Start 02/07/17 at 12:00 Ondansetron HCl (Zofran) 4 mg PRN Q6HRS PRN IV NAUESA, 1ST CHOICE; Start 02/07 at 12:00 Insulin Aspart (NovoLOG VIAL) 100 unit STK-MED ONCE SQ ; Start 02/07/17 at 14: 01; Stop 02/07/17 at 14:02; Status DC Insulin Aspart (NovoLOG VIAL) 3 unit 1X ONCE SQ Last administered on 13:58; Start 02/07/17 at 14:15; Stop 02/07/17 at 14:16; Status DC Pneumococcal Polyvalent Vaccine (Do NOT chart on this placeholder) 1X ONCE MC ; Start 02/07/17 at 16:15; Stop 02/07/17 at 16:16; Status UNV Albuterol/ Ipratropium (Duoneb) 3 ml PRN Q6HRS PRN NEB SHORTNESS OF BREATH; Start 02/08/17 at 09:30; Stop 02/08/17 at 09:35; Status DC Albuterol Sulfate (Ventolin Neb Soln) 2.5 mg PRN Q4HRS PRN NEB SHORTNESS OF BREATH; Start 02/08/17 at 09:30 Insulin Aspart (NovoLOG) 0-9 UNITS TIDWMEALS SQ Last administered on 12:30; Start 02/08/17 at 12:00 Dextrose (Dextrose 50%-Water Syringe) 12.5 gm PRN Q15MIN PRN IV SEE COMMENTS; Start 02/08/17 at 09:30 Active Scripts Active Reported [Lidocaine] 15 Ml PO Q6HRS PRN [Ondansetron] 4 Mg IV PRN Q4HRS PRN [Pepcid Suspension] 20 IV BID Duoneb 0.5-3(2.5) Mg/3 Ml (Albuterol/Ipratropium) 3 Ml Ampul.neb 3 Ml NEB PRN Q6HRS PRN Novolog (Insulin Aspart) 100 Unit/1 Ml Cartridge 0 SQ Q6HRS Allergies Allergies: Coded Allergies: No Known Drug Allergies (Unverified , 02/07/17) Physical Exam Physical Exam SEVERE hard hearing, hard to communicate General: Alert, Oriented X3 HEENT: Atraumatic, PERRLA Lungs: Clear to auscultation Heart: Regular rate, Normal S1, Normal S2 Abdomen: Soft, Other (decreased BS, surgical wound has jan drainage, 1 J tube, 1 SULMA has sangueous drainage, + tenderness) Extremities: No clubbing, No cyanosis Skin: No rashes, No breakdown Neuro: Normal speech MUSCULOSKELETAL: No joint tenderness, No deformity Vitals VITALS Vital Signs Date Time Temp Pulse Resp B/P (MAP) Pulse Ox O2 Delivery O2 Flow Rate FiO2 02/08/17 12:00 96 157/75 (102) 100 Room Air 02/08/17 11:00 97.6 97.6 02/08/17 07:00 22 02/07/17 18:00 1.0 Labs Labs Laboratory Tests Test 02/07/17 06:30 02/07/17 10:53 02/07/17 12:26 02/07/17 13:27 White Blood Count 8.1 x10^3/uL (4.0-11.0) Red Blood Count 3.20 x10^6/uL (4.30-5.70) Hemoglobin 9.5 g/dL (13.0-17.5) Hematocrit 28.0 % (39.0-53.0) Mean Corpuscular Volume 87 fL (79-100) Mean Corpuscular Hemoglobin 30 pg (25-35) Mean Corpuscular Hemoglobin Concent 34 g/dL (31-37) Red Cell Distribution Width 13.8 % (11.5-14.5) Platelet Count 206 x10^3/uL (140-400) Neutrophils (%) (Auto) 77 % (31-73) Lymphocytes (%) (Auto) 15 % (24-48) Monocytes (%) (Auto) 7 % (0-9) Eosinophils (%) (Auto) 0 % (0-3) Basophils (%) (Auto) 0 % (0-3) Neutrophils # (Auto) 6.3 x10^3uL (1.8-7.7) Lymphocytes # (Auto) 1.2 x10^3/uL (1.0-4.8) Monocytes # (Auto) 0.6 x10^3/uL (0.0-1.1) Eosinophils # (Auto) 0.0 x10^3/uL (0.0-0.7) Basophils # (Auto) 0.0 x10^3/uL (0.0-0.2) Prothrombin Time 14.2 SEC (11.7-14.0) Prothromb Time International Ratio 1.2 (0.8-1.1) Activated Partial Thromboplast Time 36 SEC (24-38) Sodium Level 140 mmol/L (136-145) Potassium Level 4.6 mmol/L (3.5-5.1) Chloride Level 104 mmol/L (98-107) Carbon Dioxide Level 26 mmol/L (21-32) Anion Gap 10 (6-14) Blood Urea Nitrogen 48 mg/dL (8-26) Creatinine 1.4 mg/dL (0.7-1.3) Estimated GFR (Cockcroft-Gault) 48.2 BUN/Creatinine Ratio 34 (6-20) Glucose Level 206 mg/dL (70-99) 231 mg/dL (70-99) Calcium Level 9.1 mg/dL (8.5-10.1) Total Bilirubin 0.4 mg/dL (0.2-1.0) Aspartate Amino Transf (AST/SGOT) 46 U/L (15-37) Alanine Aminotransferase (ALT/SGPT) 86 U/L (16-63) Alkaline Phosphatase 98 U/L (46-116) Total Protein 7.2 g/dL (6.4-8.2) Albumin 2.7 g/dL (3.4-5.0) Albumin/Globulin Ratio 0.6 (1.0-1.7) Bedside Hemoglobin (Calculated) 9.9 g/dL (14-18) Bedside Hematocrit 29 % (37-52) Bedside Arterial pH 7.37 (7.35-7.45) Arterial Blood pH (Temp corrected) 7.38 Bedside Arterial pCO2 36 mmHg (35-45) Arterial Blood pCO2 (Temp correct) 35 mmHg Bedside Arterial pO2 305 mmHg (75-100) Arterial Blood pO2 (Temp corrected) 302 mmHg Bedside Arterial HCO3 20 mmol/L (21-28) Bedside Arterial Total CO2 21 mmol/L (21-32) Arterial Bld O2 Saturation (Measur) 100 % (95-99) Bedside Arterial Blood Base Excess -5 mmol/L (0-3) Bedside FiO2 78.0 Bedside Sodium 140 mmol/L (135-145) Bedside Potassium 5.0 mmol/L (3.5-5.0) Bedside Ionized Calcium (Afny) 1.10 mmol/L (1.13-1.32) Glucose (Fingerstick) 215 mg/dL (70-99) 239 mg/dL (70-99) Test 02/08/17 05:30 02/08/17 11:51 White Blood Count 9.5 x10^3/uL (4.0-11.0) Red Blood Count 2.38 x10^6/uL (4.30-5.70) Hemoglobin 7.0 g/dL (13.0-17.5) Hematocrit 21.0 % (39.0-53.0) Mean Corpuscular Volume 88 fL (79-100) Mean Corpuscular Hemoglobin 29 pg (25-35) Mean Corpuscular Hemoglobin Concent 33 g/dL (31-37) Red Cell Distribution Width 14.1 % (11.5-14.5) Platelet Count 150 x10^3/uL (140-400) Neutrophils (%) (Auto) 87 % (31-73) Lymphocytes (%) (Auto) 7 % (24-48) Monocytes (%) (Auto) 5 % (0-9) Eosinophils (%) (Auto) 0 % (0-3) Basophils (%) (Auto) 0 % (0-3) Neutrophils # (Auto) 8.3 x10^3uL (1.8-7.7) Lymphocytes # (Auto) 0.7 x10^3/uL (1.0-4.8) Monocytes # (Auto) 0.5 x10^3/uL (0.0-1.1) Eosinophils # (Auto) 0.0 x10^3/uL (0.0-0.7) Basophils # (Auto) 0.0 x10^3/uL (0.0-0.2) Segmented Neutrophils % 81 % (35-66) Band Neutrophils % 5 % (0-9) Lymphocytes % 9 % (24-48) Monocytes % 5 % (0-10) Platelet Estimate Adequate (ADEQUATE) Sodium Level 140 mmol/L (136-145) Potassium Level 5.4 mmol/L (3.5-5.1) Chloride Level 108 mmol/L (98-107) Carbon Dioxide Level 22 mmol/L (21-32) Anion Gap 10 (6-14) Blood Urea Nitrogen 42 mg/dL (8-26) Creatinine 1.4 mg/dL (0.7-1.3) Estimated GFR (Cockcroft-Gault) 48.2 Glucose Level 219 mg/dL (70-99) Calcium Level 7.6 mg/dL (8.5-10.1) Glucose (Fingerstick) 210 mg/dL (70-99) Laboratory Tests Test 02/08/17 05:30 02/08/17 11:51 White Blood Count 9.5 x10^3/uL (4.0-11.0) Red Blood Count 2.38 x10^6/uL (4.30-5.70) Hemoglobin 7.0 g/dL (13.0-17.5) Hematocrit 21.0 % (39.0-53.0) Mean Corpuscular Volume 88 fL (79-100) Mean Corpuscular Hemoglobin 29 pg (25-35) Mean Corpuscular Hemoglobin Concent 33 g/dL (31-37) Red Cell Distribution Width 14.1 % (11.5-14.5) Platelet Count 150 x10^3/uL (140-400) Neutrophils (%) (Auto) 87 % (31-73) Lymphocytes (%) (Auto) 7 % (24-48) Monocytes (%) (Auto) 5 % (0-9) Eosinophils (%) (Auto) 0 % (0-3) Basophils (%) (Auto) 0 % (0-3) Neutrophils # (Auto) 8.3 x10^3uL (1.8-7.7) Lymphocytes # (Auto) 0.7 x10^3/uL (1.0-4.8) Monocytes # (Auto) 0.5 x10^3/uL (0.0-1.1) Eosinophils # (Auto) 0.0 x10^3/uL (0.0-0.7) Basophils # (Auto) 0.0 x10^3/uL (0.0-0.2) Segmented Neutrophils % 81 % (35-66) Band Neutrophils % 5 % (0-9) Lymphocytes % 9 % (24-48) Monocytes % 5 % (0-10) Platelet Estimate Adequate (ADEQUATE) Sodium Level 140 mmol/L (136-145) Potassium Level 5.4 mmol/L (3.5-5.1) Chloride Level 108 mmol/L (98-107) Carbon Dioxide Level 22 mmol/L (21-32) Anion Gap 10 (6-14) Blood Urea Nitrogen 42 mg/dL (8-26) Creatinine 1.4 mg/dL (0.7-1.3) Estimated GFR (Cockcroft-Gault) 48.2 Glucose Level 219 mg/dL (70-99) Calcium Level 7.6 mg/dL (8.5-10.1) Glucose (Fingerstick) 210 mg/dL (70-99) Assessment/Plan Assessment/Plan gastric outlet obstruction s/p Exploratory laparotomy, Extensive lysis of adhesions, repair of incisional hernia, gastrectomy and Antrectomy with Kb en Y reconstruction in an antecolic position, J-tube placement 02/07 H/O cad HTN POST CABG DM2 hyperkalemia ckd3 acute on chronic anemia post sx stable chronic systolic CHF EF 40% plan: 1u PRBC 02/08 fu with sx, ok to start J tube feeding IVF sx wound care SSI dvt, gi ppx labs tmr PTOT ok to transfer out of ICU if ok with sx SIXTO HUANG MD Feb 08, 2017 13:38
[2017-02-08] MEDS: IV RINGERS,LACTATED 1000ML 1,000 ML IV SCH ×2 (17:16→17:49)
[2017-02-08] MEDS: FAMOTIDINE 20 MG/2 ML VIAL IVP SCH (21:07)
[2017-02-09] VITALS (17 sets, daily range): BP systolic 121–151; BP diastolic 61–79
[2017-02-09] MEDS: IV RINGERS,LACTATED 1000ML 1,000 ML IV SCH ×2 (03:10→12:29)
[2017-02-09 05:52] LABS: BASO % 0 % (0-3); EOS % 0 % (0-3); HEMATOCRIT 25.4 % (39.0-53.0); HEMOGLOBIN 8.7 g/dL (13.0-17.5); LYMPH # 0.7 x10^3/uL (1.0-4.8); LYMPH % 8 % (24-48); MEAN CORPUSCULAR HEMOGLOBIN 30 pg (25-35); MEAN CORPUSCULAR HGB CONC 34 g/dL (31-37); MEAN CORPUSCULAR VOLUME 88 fL (79-100); MONO % 6 % (0-9); NEUT % 86 % (31-73); PLATELET COUNT 168 x10^3/uL (140-400); RED CELL DISTRIBUTION WIDTH 13.8 % (11.5-14.5); WHITE BLOOD COUNT 9.7 x10^3/uL (4.0-11.0)
[2017-02-09 06:13] LABS: CALCIUM 8.2 mg/dL (8.5-10.1); CREATININE 1.2 mg/dL (0.7-1.3); GFR 57.5; POTASSIUM 4.9 mmol/L (3.5-5.1)
[2017-02-09] MEDS: ENOXAPARIN 30 MG/0.3 ML SYRINGE. SQ SCH (08:13)
[2017-02-09] MEDS: INSULIN ASPART 300 UNITS/3 ML INSULN.PEN SQ SCH ×3 (08:18→17:00)
[2017-02-09] MEDS: IV NORMAL SALINE 1000ML BAG 1,000 ML IV SCH (11:49)
--- NOTE | 2017-02-09 11:52 | PDOC ---
PROGRESS NOTES Chief Complaint Chief Complaint Gastric outlet obstruction PMH: DM HTN CAD PUD CABG History of Present Illness History of Present Illness Pt in ICU Pt was laying in bed but was not talkative. was also in the room and she was conversant. Pt had an NG tube in but no drainage was noted. Tube feeds were also hung. Discussed plan of care with pt, , and RN including tube feeds and transferring him to medical floor and out of ICU. Pt received 1 unit of PRBCs due to low Hgb 02/07 - gastrectomy Vitals Vitals Vital Signs Date Time Temp Pulse Resp B/P (MAP) Pulse Ox O2 Delivery O2 Flow Rate FiO2 02/09/17 11:00 108 15 137/68 (91) 100 Room Air 02/09/17 08:00 98.4 98.4 Physical Exam General: Alert, Oriented X3, No acute distress Heart: Regular rate, Normal S1, Normal S2 Lungs: Clear Abdomen: Soft, Other (decreased BS, surgical wound has jan drainage, 1 J tube, 1 SULMA has sangueous drainage, + tenderness) Extremities: No clubbing, No cyanosis Skin: No rashes, No breakdown Labs LABS Laboratory Tests Test 02/08/17 11:51 02/08/17 17:20 02/09/17 05:45 02/09/17 08:16 Glucose (Fingerstick) 210 mg/dL (70-99) 158 mg/dL (70-99) 196 mg/dL (70-99) White Blood Count 9.7 x10^3/uL (4.0-11.0) Red Blood Count 2.90 x10^6/uL (4.30-5.70) Hemoglobin 8.7 g/dL (13.0-17.5) Hematocrit 25.4 % (39.0-53.0) Mean Corpuscular Volume 88 fL (79-100) Mean Corpuscular Hemoglobin 30 pg (25-35) Mean Corpuscular Hemoglobin Concent 34 g/dL (31-37) Red Cell Distribution Width 13.8 % (11.5-14.5) Platelet Count 168 x10^3/uL (140-400) Neutrophils (%) (Auto) 86 % (31-73) Lymphocytes (%) (Auto) 8 % (24-48) Monocytes (%) (Auto) 6 % (0-9) Eosinophils (%) (Auto) 0 % (0-3) Basophils (%) (Auto) 0 % (0-3) Neutrophils # (Auto) 8.3 x10^3uL (1.8-7.7) Lymphocytes # (Auto) 0.7 x10^3/uL (1.0-4.8) Monocytes # (Auto) 0.5 x10^3/uL (0.0-1.1) Eosinophils # (Auto) 0.0 x10^3/uL (0.0-0.7) Basophils # (Auto) 0.0 x10^3/uL (0.0-0.2) Sodium Level 139 mmol/L (136-145) Potassium Level 4.9 mmol/L (3.5-5.1) Chloride Level 106 mmol/L (98-107) Carbon Dioxide Level 25 mmol/L (21-32) Anion Gap 8 (6-14) Blood Urea Nitrogen 35 mg/dL (8-26) Creatinine 1.2 mg/dL (0.7-1.3) Estimated GFR (Cockcroft-Gault) 57.5 Glucose Level 189 mg/dL (70-99) Calcium Level 8.2 mg/dL (8.5-10.1) Review of Systems Review of Systems Pt was not conversant Pt appeared to be fatigued and frail Pt had wincing when stomach palpated Assessment and Plan Assessmemt and Plan Gastric outlet obstruction PMH: DM HTN CAD PUD CABG Plan: Cont. insulin cont, tube feeds recheck labs cont. pain management cont. IVF discussed plan with VAN DÍAZ to transfer to [facility] floor from IM standpoint Appreciate subspecialist input Problems: Comment Review of Relevant I have reviewed the following items sukhwinder (where applicable) has been applied. Labs Laboratory Tests Test 02/07/17 12:26 02/07/17 13:27 02/08/17 05:30 02/08/17 11:51 Glucose (Fingerstick) 215 mg/dL (70-99) 239 mg/dL (70-99) 210 mg/dL (70-99) White Blood Count 9.5 x10^3/uL (4.0-11.0) Red Blood Count 2.38 x10^6/uL (4.30-5.70) Hemoglobin 7.0 g/dL (13.0-17.5) Hematocrit 21.0 % (39.0-53.0) Mean Corpuscular Volume 88 fL (79-100) Mean Corpuscular Hemoglobin 29 pg (25-35) Mean Corpuscular Hemoglobin Concent 33 g/dL (31-37) Red Cell Distribution Width 14.1 % (11.5-14.5) Platelet Count 150 x10^3/uL (140-400) Neutrophils (%) (Auto) 87 % (31-73) Lymphocytes (%) (Auto) 7 % (24-48) Monocytes (%) (Auto) 5 % (0-9) Eosinophils (%) (Auto) 0 % (0-3) Basophils (%) (Auto) 0 % (0-3) Neutrophils # (Auto) 8.3 x10^3uL (1.8-7.7) Lymphocytes # (Auto) 0.7 x10^3/uL (1.0-4.8) Monocytes # (Auto) 0.5 x10^3/uL (0.0-1.1) Eosinophils # (Auto) 0.0 x10^3/uL (0.0-0.7) Basophils # (Auto) 0.0 x10^3/uL (0.0-0.2) Segmented Neutrophils % 81 % (35-66) Band Neutrophils % 5 % (0-9) Lymphocytes % 9 % (24-48) Monocytes % 5 % (0-10) Platelet Estimate Adequate (ADEQUATE) Sodium Level 140 mmol/L (136-145) Potassium Level 5.4 mmol/L (3.5-5.1) Chloride Level 108 mmol/L (98-107) Carbon Dioxide Level 22 mmol/L (21-32) Anion Gap 10 (6-14) Blood Urea Nitrogen 42 mg/dL (8-26) Creatinine 1.4 mg/dL (0.7-1.3) Estimated GFR (Cockcroft-Gault) 48.2 Glucose Level 219 mg/dL (70-99) Calcium Level 7.6 mg/dL (8.5-10.1) Test 02/08/17 17:20 02/09/17 05:45 02/09/17 08:16 Glucose (Fingerstick) 158 mg/dL (70-99) 196 mg/dL (70-99) White Blood Count 9.7 x10^3/uL (4.0-11.0) Red Blood Count 2.90 x10^6/uL (4.30-5.70) Hemoglobin 8.7 g/dL (13.0-17.5) Hematocrit 25.4 % (39.0-53.0) Mean Corpuscular Volume 88 fL (79-100) Mean Corpuscular Hemoglobin 30 pg (25-35) Mean Corpuscular Hemoglobin Concent 34 g/dL (31-37) Red Cell Distribution Width 13.8 % (11.5-14.5) Platelet Count 168 x10^3/uL (140-400) Neutrophils (%) (Auto) 86 % (31-73) Lymphocytes (%) (Auto) 8 % (24-48) Monocytes (%) (Auto) 6 % (0-9) Eosinophils (%) (Auto) 0 % (0-3) Basophils (%) (Auto) 0 % (0-3) Neutrophils # (Auto) 8.3 x10^3uL (1.8-7.7) Lymphocytes # (Auto) 0.7 x10^3/uL (1.0-4.8) Monocytes # (Auto) 0.5 x10^3/uL (0.0-1.1) Eosinophils # (Auto) 0.0 x10^3/uL (0.0-0.7) Basophils # (Auto) 0.0 x10^3/uL (0.0-0.2) Sodium Level 139 mmol/L (136-145) Potassium Level 4.9 mmol/L (3.5-5.1) Chloride Level 106 mmol/L (98-107) Carbon Dioxide Level 25 mmol/L (21-32) Anion Gap 8 (6-14) Blood Urea Nitrogen 35 mg/dL (8-26) Creatinine 1.2 mg/dL (0.7-1.3) Estimated GFR (Cockcroft-Gault) 57.5 Glucose Level 189 mg/dL (70-99) Calcium Level 8.2 mg/dL (8.5-10.1) Laboratory Tests Test 02/08/17 11:51 02/08/17 17:20 02/09/17 05:45 02/09/17 08:16 Glucose (Fingerstick) 210 mg/dL (70-99) 158 mg/dL (70-99) 196 mg/dL (70-99) White Blood Count 9.7 x10^3/uL (4.0-11.0) Red Blood Count 2.90 x10^6/uL (4.30-5.70) Hemoglobin 8.7 g/dL (13.0-17.5) Hematocrit 25.4 % (39.0-53.0) Mean Corpuscular Volume 88 fL (79-100) Mean Corpuscular Hemoglobin 30 pg (25-35) Mean Corpuscular Hemoglobin Concent 34 g/dL (31-37) Red Cell Distribution Width 13.8 % (11.5-14.5) Platelet Count 168 x10^3/uL (140-400) Neutrophils (%) (Auto) 86 % (31-73) Lymphocytes (%) (Auto) 8 % (24-48) Monocytes (%) (Auto) 6 % (0-9) Eosinophils (%) (Auto) 0 % (0-3) Basophils (%) (Auto) 0 % (0-3) Neutrophils # (Auto) 8.3 x10^3uL (1.8-7.7) Lymphocytes # (Auto) 0.7 x10^3/uL (1.0-4.8) Monocytes # (Auto) 0.5 x10^3/uL (0.0-1.1) Eosinophils # (Auto) 0.0 x10^3/uL (0.0-0.7) Basophils # (Auto) 0.0 x10^3/uL (0.0-0.2) Sodium Level 139 mmol/L (136-145) Potassium Level 4.9 mmol/L (3.5-5.1) Chloride Level 106 mmol/L (98-107) Carbon Dioxide Level 25 mmol/L (21-32) Anion Gap 8 (6-14) Blood Urea Nitrogen 35 mg/dL (8-26) Creatinine 1.2 mg/dL (0.7-1.3) Estimated GFR (Cockcroft-Gault) 57.5 Glucose Level 189 mg/dL (70-99) Calcium Level 8.2 mg/dL (8.5-10.1) Medications Current Medications Ondansetron HCl (Zofran) 4 mg PRN Q6HRS PRN IV NAUSEA/VOMITING; Start at 07:00; Stop 02/08/17 at 06:59; Status DC Fentanyl Citrate (Fentanyl 2ml Vial) 25 mcg PRN Q5MIN PRN IV MILD PAIN Last administered on 02/07/17 14:08; Start 02/07/17 at 07:00; Stop 02/08/17 at 06 :59; Status DC Fentanyl Citrate (Fentanyl 2ml Vial) 50 mcg PRN Q5MIN PRN IV MODERATE PAIN; Start 02/07/17 at 07:00; Stop 02/08/17 at 06:59; Status DC Morphine Sulfate 1 mg PRN Q10MIN PRN IV SEVERE PAIN; Start 02/07/17 at 07:00; Stop 02/08/17 at 06:59; Status DC Ringer's Solution 1,000 ml @ 0 mls/hr Q0M IV Last administered on 02/07/17 13:45; Start 02/07/17 at 07:00; Stop 02/07/17 at 18:59; Status DC Lidocaine HCl (Xylocaine-Mpf 1% Vial) 2 ml PRN 1X PRN ID PRIOR TO IV START; Start 02/07/17 at 07:00; Stop 02/08/17 at 06:59; Status DC Hydromorphone HCl (Dilaudid) 0.5 mg PRN Q10MIN PRN IV SEV PAIN, Second choice; Start 02/07/17 at 07:00; Stop 02/08/17 at 06:59; Status DC Prochlorperazine Edisylate (Compazine) 5 mg PACU PRN PRN IV NAUSEA, MRX1; Start 02/07/17 at 07:00; Stop 02/08/17 at 06:59; Status DC Cefazolin Sodium/ Dextrose 50 ml @ 100 mls/hr 1X PREOP PRN IV PRIOR TO PROCEDURE; Start 02/07/17 at 06:00; Stop 02/07/17 at 18:00; Status DC Cefoxitin Sodium 2 gm/Sodium Chloride 100 ml @ 200 mls/hr 1X ONCE IV ; Start 02/07/17 at 07:00; Stop 02/07/17 at 07:29; Status UNV Cefoxitin Sodium 100 ml @ 200 mls/hr ONCE ONCE IV Last administered on 10/10/ 17at 08:16; Start 02/07/17 at 07:15; Stop 02/07/17 at 07:44; Status DC Lidocaine HCl (Lidocaine Pf 2% Vial) 5 ml STK-MED ONCE .ROUTE ; Start 02/07/17 at 07:29; Stop 02/07/17 at 07:30; Status DC Etomidate (Amidate) 20 mg STK-MED ONCE IV ; Start 02/07/17 at 07:29; Stop 02/14 at 07:30; Status DC Fentanyl Citrate (Fentanyl 2ml Vial) 100 mcg STK-MED ONCE .ROUTE ; Start at 07:29; Stop 02/07/17 at 07:30; Status DC Rocuronium Quincy (Zemuron) 100 mg STK-MED ONCE .ROUTE ; Start 02/07/17 at 07: 29; Stop 02/07/17 at 07:30; Status DC Dexamethasone Sodium Phosphate (Decadron) 20 mg STK-MED ONCE .ROUTE ; Start 02/14 at 08:16; Stop 02/07/17 at 08:17; Status DC Ondansetron HCl (Zofran) 4 mg STK-MED ONCE .ROUTE ; Start 02/07/17 at 08:16; Stop 02/07/17 at 08:17; Status DC Esmolol HCl (Brevibloc) 100 mg STK-MED ONCE IV ; Start 02/07/17 at 08:16; Stop 02/07/17 at 08:17; Status DC Phenylephrine HCl (Cheng-Synephrine Inj) 10 mg STK-MED ONCE .ROUTE ; Start at 08:16; Stop 02/07/17 at 08:17; Status DC Fentanyl Citrate (Fentanyl 2ml Vial) 100 mcg STK-MED ONCE .ROUTE ; Start at 08:17; Stop 02/07/17 at 08:18; Status DC Labetalol HCl (Normodyne) 20 mg STK-MED ONCE .ROUTE ; Start 02/07/17 at 08:50; Stop 02/07/17 at 08:51; Status DC Fentanyl Citrate (Fentanyl 2ml Vial) 100 mcg STK-MED ONCE .ROUTE ; Start at 09:21; Stop 02/07/17 at 09:22; Status DC Rocuronium Quincy (Zemuron) 100 mg STK-MED ONCE .ROUTE ; Start 02/07/17 at 09: 30; Stop 02/07/17 at 09:31; Status DC Cellulose 1 each STK-MED ONCE .ROUTE Last administered on 02/07/17 10:57; Start 02/07/17 at 09:57; Stop 02/07/17 at 10:57; Status DC Albumin Human 500 ml @ As Directed STK-MED ONCE IV ; Start 02/07/17 at 11:06; Stop 02/07/17 at 11:07; Status DC Neostigmine Methylsulfate (Bloxiverz) 10 mg STK-MED ONCE .ROUTE ; Start at 11:20; Stop 02/07/17 at 11:21; Status DC Glycopyrrolate (Robinul) 1 mg STK-MED ONCE .ROUTE ; Start 02/07/17 at 11:20; Stop 02/07/17 at 11:21; Status DC Famotidine (Pepcid) 20 mg QHS IVP Last administered on 02/08/17 21:07; Start 02/07/17 at 21:00 Enoxaparin Sodium (Lovenox 30mg Syringe) 30 mg Q24H SQ Last administered on 08:13; Start 02/08/17 at 08:00; Stop 02/09/17 at 10:41; Status DC Sodium Chloride (Normal Saline Flush) 3 ml QSHIFT PRN IV AFTER MEDS AND BLOOD DRAWS; Start 02/07/17 at 12:00 Ringer's Solution 1,000 ml @ 100 mls/hr Q10H IV Last administered on 03:10; Start 02/07/17 at 11:49 Naloxone HCl (Narcan) 0.4 mg PRN Q2MIN PRN IV SEE INSTRUCTIONS; Start at 12:00 Sodium Chloride 1,000 ml @ 25 mls/hr Q24H IV Last administered on 02/07/17 11:49; Start 02/07/17 at 11:49 Morphine Sulfate 30 ml @ 0 mls/hr CONT PRN PRN IV PROTOCOL Last administered on 02/07/17 15:13; Start 02/07/17 at 12:00 Ondansetron HCl (Zofran) 4 mg PRN Q6HRS PRN IV NAUESA, 1ST CHOICE; Start 02/07 at 12:00 Insulin Aspart (NovoLOG VIAL) 100 unit STK-MED ONCE SQ ; Start 02/07/17 at 14: 01; Stop 02/07/17 at 14:02; Status DC Insulin Aspart (NovoLOG VIAL) 3 unit 1X ONCE SQ Last administered on t 13:58; Start 02/07/17 at 14:15; Stop 02/07/17 at 14:16; Status DC Pneumococcal Polyvalent Vaccine (Do NOT chart on this placeholder) 1X ONCE MC ; Start 02/07/17 at 16:15; Stop 02/07/17 at 16:16; Status UNV Albuterol/ Ipratropium (Duoneb) 3 ml PRN Q6HRS PRN NEB SHORTNESS OF BREATH; Start 02/08/17 at 09:30; Stop 02/08/17 at 09:35; Status DC Albuterol Sulfate (Ventolin Neb Soln) 2.5 mg PRN Q4HRS PRN NEB SHORTNESS OF BREATH; Start 02/08/17 at 09:30 Insulin Aspart (NovoLOG) 0-9 UNITS TIDWMEALS SQ Last administered on 08:18; Start 02/08/17 at 12:00 Dextrose (Dextrose 50%-Water Syringe) 12.5 gm PRN Q15MIN PRN IV SEE COMMENTS; Start 02/08/17 at 09:30 Enoxaparin Sodium (Lovenox 40mg Syringe) 40 mg Q24H SQ ; Start 02/10/17 at 08: 00 Active Scripts Active Reported [Lidocaine] 15 Ml PO Q6HRS PRN [Ondansetron] 4 Mg IV PRN Q4HRS PRN [Pepcid Suspension] 20 IV BID Duoneb 0.5-3(2.5) Mg/3 Ml (Albuterol/Ipratropium) 3 Ml Ampul.neb 3 Ml NEB PRN Q6HRS PRN Novolog (Insulin Aspart) 100 Unit/1 Ml Cartridge 0 SQ Q6HRS Vitals/I & O Vital Sign - Last 24 Hours 02/08/17 02/08/17 02/08/17 02/08/17 12:00 12:00 12:00 13:00 Pulse 94 96 95 B/P (MAP) 154/72 (99) 157/75 (102) 138/75 (96) Pulse Ox 100 100 O2 Delivery Room Air Room Air Room Air 02/08/17 02/08/17 02/08/17 02/08/17 13:30 14:00 15:00 16:00 Pulse 94 92 B/P (MAP) 156/87 (110) 158/84 (108) Pulse Ox 96 100 100 O2 Delivery Room Air Room Air Room Air Room Air 02/08/17 02/08/17 02/08/17 02/08/17 16:00 16:00 17:00 18:00 Temp 97.8 97.8 Pulse 92 98 101 B/P (MAP) 155/86 (109) 146/70 (95) 148/69 (95) 167/84 (111) Pulse Ox 100 100 100 O2 Delivery Room Air Room Air Room Air 02/08/17 02/08/17 02/08/17 02/08/17 19:00 20:00 20:00 20:00 Temp 98.2 98.2 Pulse 102 102 102 Resp 16 12 B/P (MAP) 149/72 (97) 152/74 (100) 152/74 (100) Pulse Ox 100 100 O2 Delivery Room Air Room Air Room Air 02/08/17 02/08/17 02/08/17 02/08/17 21:00 22:00 23:00 23:59 Pulse 100 98 97 98 Resp 18 16 20 B/P (MAP) 148/72 (97) 150/74 (99) 156/76 (102) 151/77 (101) Pulse Ox 100 100 100 O2 Delivery Room Air Room Air Room Air 02/08/17 02/09/17 02/09/17 02/09/17 23:59 00:00 01:00 02:00 Temp 98.6 98.6 Pulse 98 98 102 Resp 14 16 12 B/P (MAP) 151/77 (101) 148/72 (97) 138/73 (94) Pulse Ox 100 100 100 O2 Delivery Room Air Room Air Room Air Room Air 02/09/17 02/09/17 02/09/17 02/09/17 03:00 03:51 04:00 04:00 Temp 98.6 98.6 Pulse 98 99 99 Resp 16 14 B/P (MAP) 146/73 (97) 150/77 (101) 150/77 (101) Pulse Ox 100 100 O2 Delivery Room Air Room Air Room Air 02/09/17 02/09/17 02/09/17 02/09/17 05:00 06:00 07:00 08:00 Temp 98.4 98.4 Pulse 102 101 102 101 Resp 18 16 14 14 B/P (MAP) 149/63 (91) 128/77 (94) 137/70 (92) 122/63 (82) Pulse Ox 100 100 100 100 O2 Delivery Room Air Room Air Room Air Room Air 02/09/17 02/09/17 02/09/17 02/09/17 08:00 08:00 09:00 10:00 Pulse 101 103 104 Resp 16 14 B/P (MAP) 122/63 (82) 121/61 (81) 145/68 (93) Pulse Ox 100 99 O2 Delivery Room Air Room Air Room Air 02/09/17 11:00 Pulse 108 Resp 15 B/P (MAP) 137/68 (91) Pulse Ox 100 O2 Delivery Room Air Intake and Output 02/09/17 02/09/17 02/10/17 15:00 23:00 07:00 Intake Total 120 ml Output Total 685 ml Balance -565 ml Nutrition Consultation Dietary Evaluation: Recommendations by RD: Increase Calorie Intake, Add supplement feedings Comments: Diabetisource AC@10 ml/hr, increase 10 ml/hr q8 hrs to goal of 50 ml/hr w/100 ml flushes q6 hrs Expected Outcomes/Goals: Initiation of nutrition within 24 hrs Malnutrition Findings: Food and Nutrition Intake (Mod: <75% est energy req 7days Body Fat Depletion (Non Severe: Mild Depletion Weight Status: Underweight CASTLE,NIAL K III DO Feb 09, 2017 11:52
--- NOTE | 2017-02-09 14:00 | PDOC ---
G[employer] 02/09/17 1400: SURGICAL PROGRESS NOTE Subjective NG is bothersome no complaints of abdominal pain at this time Vital Signs Vital Signs Date Time Temp Pulse Resp B/P (MAP) Pulse Ox O2 Delivery O2 Flow Rate FiO2 02/09/17 13:00 112 16 135/79 (97) 100 Room Air 02/09/17 12:00 99.0 99.0 I&O Intake and Output 02/10/17 07:00 Intake Total 240 ml Output Total 905 ml Balance -665 ml Tube Feeding 240 ml Output Urine Total 880 ml Drainage Total 25 ml PATIENT HAS A MARTINEZ: Yes General: Alert, Oriented X3, Cooperative, No acute distress HEENT: Other (NG present) Abdomen: Soft, Other (dressing dry, sarah serosang) Labs Laboratory Tests Test 02/08/17 05:30 02/08/17 11:51 02/08/17 17:20 02/09/17 05:45 White Blood Count 9.5 x10^3/uL (4.0-11.0) 9.7 x10^3/uL (4.0-11.0) Red Blood Count 2.38 x10^6/uL (4.30-5.70) 2.90 x10^6/uL (4.30-5.70) Hemoglobin 7.0 g/dL (13.0-17.5) 8.7 g/dL (13.0-17.5) Hematocrit 21.0 % (39.0-53.0) 25.4 % (39.0-53.0) Mean Corpuscular Volume 88 fL (79-100) 88 fL (79-100) Mean Corpuscular Hemoglobin 29 pg (25-35) 30 pg (25-35) Mean Corpuscular Hemoglobin Concent 33 g/dL (31-37) 34 g/dL (31-37) Red Cell Distribution Width 14.1 % (11.5-14.5) 13.8 % (11.5-14.5) Platelet Count 150 x10^3/uL (140-400) 168 x10^3/uL (140-400) Neutrophils (%) (Auto) 87 % (31-73) 86 % (31-73) Lymphocytes (%) (Auto) 7 % (24-48) 8 % (24-48) Monocytes (%) (Auto) 5 % (0-9) 6 % (0-9) Eosinophils (%) (Auto) 0 % (0-3) 0 % (0-3) Basophils (%) (Auto) 0 % (0-3) 0 % (0-3) Neutrophils # (Auto) 8.3 x10^3uL (1.8-7.7) 8.3 x10^3uL (1.8-7.7) Lymphocytes # (Auto) 0.7 x10^3/uL (1.0-4.8) 0.7 x10^3/uL (1.0-4.8) Monocytes # (Auto) 0.5 x10^3/uL (0.0-1.1) 0.5 x10^3/uL (0.0-1.1) Eosinophils # (Auto) 0.0 x10^3/uL (0.0-0.7) 0.0 x10^3/uL (0.0-0.7) Basophils # (Auto) 0.0 x10^3/uL (0.0-0.2) 0.0 x10^3/uL (0.0-0.2) Segmented Neutrophils % 81 % (35-66) Band Neutrophils % 5 % (0-9) Lymphocytes % 9 % (24-48) Monocytes % 5 % (0-10) Platelet Estimate Adequate (ADEQUATE) Sodium Level 140 mmol/L (136-145) 139 mmol/L (136-145) Potassium Level 5.4 mmol/L (3.5-5.1) 4.9 mmol/L (3.5-5.1) Chloride Level 108 mmol/L (98-107) 106 mmol/L (98-107) Carbon Dioxide Level 22 mmol/L (21-32) 25 mmol/L (21-32) Anion Gap 10 (6-14) 8 (6-14) Blood Urea Nitrogen 42 mg/dL (8-26) 35 mg/dL (8-26) Creatinine 1.4 mg/dL (0.7-1.3) 1.2 mg/dL (0.7-1.3) Estimated GFR (Cockcroft-Gault) 48.2 57.5 Glucose Level 219 mg/dL (70-99) 189 mg/dL (70-99) Calcium Level 7.6 mg/dL (8.5-10.1) 8.2 mg/dL (8.5-10.1) Glucose (Fingerstick) 210 mg/dL (70-99) 158 mg/dL (70-99) Test 02/09/17 08:16 02/09/17 12:23 Glucose (Fingerstick) 196 mg/dL (70-99) 154 mg/dL (70-99) Laboratory Tests Test 02/08/17 17:20 02/09/17 05:45 02/09/17 08:16 02/09/17 12:23 Glucose (Fingerstick) 158 mg/dL (70-99) 196 mg/dL (70-99) 154 mg/dL (70-99) White Blood Count 9.7 x10^3/uL (4.0-11.0) Red Blood Count 2.90 x10^6/uL (4.30-5.70) Hemoglobin 8.7 g/dL (13.0-17.5) Hematocrit 25.4 % (39.0-53.0) Mean Corpuscular Volume 88 fL (79-100) Mean Corpuscular Hemoglobin 30 pg (25-35) Mean Corpuscular Hemoglobin Concent 34 g/dL (31-37) Red Cell Distribution Width 13.8 % (11.5-14.5) Platelet Count 168 x10^3/uL (140-400) Neutrophils (%) (Auto) 86 % (31-73) Lymphocytes (%) (Auto) 8 % (24-48) Monocytes (%) (Auto) 6 % (0-9) Eosinophils (%) (Auto) 0 % (0-3) Basophils (%) (Auto) 0 % (0-3) Neutrophils # (Auto) 8.3 x10^3uL (1.8-7.7) Lymphocytes # (Auto) 0.7 x10^3/uL (1.0-4.8) Monocytes # (Auto) 0.5 x10^3/uL (0.0-1.1) Eosinophils # (Auto) 0.0 x10^3/uL (0.0-0.7) Basophils # (Auto) 0.0 x10^3/uL (0.0-0.2) Sodium Level 139 mmol/L (136-145) Potassium Level 4.9 mmol/L (3.5-5.1) Chloride Level 106 mmol/L (98-107) Carbon Dioxide Level 25 mmol/L (21-32) Anion Gap 8 (6-14) Blood Urea Nitrogen 35 mg/dL (8-26) Creatinine 1.2 mg/dL (0.7-1.3) Estimated GFR (Cockcroft-Gault) 57.5 Glucose Level 189 mg/dL (70-99) Calcium Level 8.2 mg/dL (8.5-10.1) Problem List s/p antrectomy with heath en y reconstruction Tube feeds per J tube continue NG tube Ok to tx from ICU Problems: ROSEY LOGAN MD 02/09/17 1547: SURGICAL PROGRESS NOTE Assessment/Plan pt seen and examined visited with his family at the bedside to floor hold TF, resume TPN keep NG for now Problems: [employer] Feb 09, 2017 14:00 ROSEY LOGAN MD Feb 09, 2017 15:47
--- NOTE | 2017-02-09 17:35 | RAD ---
Indication right arm swelling. Grayscale color Doppler and spectral imaging was performed. The examination was targeted to the veins of the right upper extremity. The internal jugular is patent. There is extensive thrombus along the subclavian vein. There appears to be a line within the subclavian vein. Clinical correlation advised. Thrombus is seen extending into the axillary vein. Thrombus is also seen in the upper portion of the brachial vein. Some thrombus is seen in the cephalic and basilic vein. Unremarkable flow is seen in the radial and ulnar veins. Critical results were communicated to Ellen, the nurse on the floor caring for the patient at the time of dictation IMPRESSION: Extensive DVT in the right upper extremity. Some thrombus is also noted in portions of the cephalic and basilic vein compatible with superficial thrombophlebitis
[2017-02-09] MEDS: FAMOTIDINE 20 MG/2 ML VIAL IVP SCH (21:28)
[2017-02-09] MEDS ORDERED: TPN PER PHARMACY MC PRN (22:30)
[2017-02-10 03:21] VITALS: BP 130/78
[2017-02-10] MEDS: IV RINGERS,LACTATED 1000ML 1,000 ML IV SCH ×2 (05:53→09:49)
[2017-02-10 07:00] VITALS: BP 148/81
[2017-02-10 07:47] LABS: BASO % 0 % (0-3); EOS % 0 % (0-3); HEMATOCRIT 27.5 % (39.0-53.0); HEMOGLOBIN 9.3 g/dL (13.0-17.5); LYMPH # 0.7 x10^3/uL (1.0-4.8); LYMPH % 8 % (24-48); MEAN CORPUSCULAR HEMOGLOBIN 30 pg (25-35); MEAN CORPUSCULAR HGB CONC 34 g/dL (31-37); MEAN CORPUSCULAR VOLUME 88 fL (79-100); MONO % 5 % (0-9); NEUT % 87 % (31-73); PLATELET COUNT 175 x10^3/uL (140-400); RED BLOOD COUNT 3.12 x10^6/uL (4.30-5.70); WHITE BLOOD COUNT 9.4 x10^3/uL (4.0-11.0)
[2017-02-10] MEDS: INSULIN ASPART 300 UNITS/3 ML INSULN.PEN SQ SCH ×3 (07:57→18:00)
[2017-02-10 07:58] LABS: CALCIUM 8.2 mg/dL (8.5-10.1); CREATININE 1.4 mg/dL (0.7-1.3); GFR 48.2; POTASSIUM 4.3 mmol/L (3.5-5.1)
[2017-02-10] MEDS ORDERED: ENOXAPARIN 40 MG/0.4 ML SYRINGE. SQ SCH (08:00)
[2017-02-10 11:00] VITALS: BP 107/94
--- NOTE | 2017-02-10 11:08 | PDOC ---
PROGRESS NOTES Chief Complaint Chief Complaint Gastric outlet obstruction New DVT Rt arm - PICC in site Hx perforated ulcer DISTANT PAST Frailty, gen weakness FULL code PMH: DM HTN CAD PUD CABG History of Present Illness History of Present Illness US done last night bec of RT arm swelling, shows IMPRESSION: Extensive DVT in the right upper extremity. 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 TESTER DO morphine pushes - carlyle RN dc RT arm PICC, peripheral IV preferable this time, anesthesia stick if needed If no thrombolysis , then will initiate xarelto 15 BID x 7 days then 20 P qdaily for 3 mos, INterval sono that time to see size Dw VAN Rosales and at bedside NGT per gS Vitals Vitals Vital Signs Date Time Temp Pulse Resp B/P (MAP) Pulse Ox O2 Delivery O2 Flow Rate FiO2 02/10/17 07:15 Room Air 02/10/17 07:00 98.1 101 18 148/81 (103) 98 98.1 Physical Exam General: Alert, Oriented X3, Cooperative, No acute distress Heart: Regular rate, Normal S1, Normal S2 Lungs: Clear Abdomen: Soft, Other (dressing dry, sarah serosang) Extremities: No clubbing, No cyanosis Skin: No rashes, No breakdown Labs LABS Laboratory Tests Test 02/09/17 12:23 02/09/17 17:18 02/10/17 07:16 Glucose (Fingerstick) 154 mg/dL (70-99) 182 mg/dL (70-99) White Blood Count 9.4 x10^3/uL (4.0-11.0) Red Blood Count 3.12 x10^6/uL (4.30-5.70) Hemoglobin 9.3 g/dL (13.0-17.5) Hematocrit 27.5 % (39.0-53.0) Mean Corpuscular Volume 88 fL (79-100) Mean Corpuscular Hemoglobin 30 pg (25-35) Mean Corpuscular Hemoglobin Concent 34 g/dL (31-37) Red Cell Distribution Width 14.0 % (11.5-14.5) Platelet Count 175 x10^3/uL (140-400) Neutrophils (%) (Auto) 87 % (31-73) Lymphocytes (%) (Auto) 8 % (24-48) Monocytes (%) (Auto) 5 % (0-9) Eosinophils (%) (Auto) 0 % (0-3) Basophils (%) (Auto) 0 % (0-3) Neutrophils # (Auto) 8.2 x10^3uL (1.8-7.7) Lymphocytes # (Auto) 0.7 x10^3/uL (1.0-4.8) Monocytes # (Auto) 0.5 x10^3/uL (0.0-1.1) Eosinophils # (Auto) 0.0 x10^3/uL (0.0-0.7) Basophils # (Auto) 0.0 x10^3/uL (0.0-0.2) Sodium Level 142 mmol/L (136-145) Potassium Level 4.3 mmol/L (3.5-5.1) Chloride Level 107 mmol/L (98-107) Carbon Dioxide Level 26 mmol/L (21-32) Anion Gap 9 (6-14) Blood Urea Nitrogen 32 mg/dL (8-26) Creatinine 1.4 mg/dL (0.7-1.3) Estimated GFR (Cockcroft-Gault) 48.2 Glucose Level 170 mg/dL (70-99) Calcium Level 8.2 mg/dL (8.5-10.1) Review of Systems Review of Systems thirsty, some post op abd soreness, no CP Comment Review of Relevant I have reviewed the following items sukhwinder (where applicable) has been applied. Labs Laboratory Tests Test 02/08/17 11:51 02/08/17 17:20 02/08/17 22:45 02/09/17 05:45 Glucose (Fingerstick) 210 mg/dL (70-99) 158 mg/dL (70-99) Nasal Screen MRSA (PCR) Negative (Negative) White Blood Count 9.7 x10^3/uL (4.0-11.0) Red Blood Count 2.90 x10^6/uL (4.30-5.70) Hemoglobin 8.7 g/dL (13.0-17.5) Hematocrit 25.4 % (39.0-53.0) Mean Corpuscular Volume 88 fL (79-100) Mean Corpuscular Hemoglobin 30 pg (25-35) Mean Corpuscular Hemoglobin Concent 34 g/dL (31-37) Red Cell Distribution Width 13.8 % (11.5-14.5) Platelet Count 168 x10^3/uL (140-400) Neutrophils (%) (Auto) 86 % (31-73) Lymphocytes (%) (Auto) 8 % (24-48) Monocytes (%) (Auto) 6 % (0-9) Eosinophils (%) (Auto) 0 % (0-3) Basophils (%) (Auto) 0 % (0-3) Neutrophils # (Auto) 8.3 x10^3uL (1.8-7.7) Lymphocytes # (Auto) 0.7 x10^3/uL (1.0-4.8) Monocytes # (Auto) 0.5 x10^3/uL (0.0-1.1) Eosinophils # (Auto) 0.0 x10^3/uL (0.0-0.7) Basophils # (Auto) 0.0 x10^3/uL (0.0-0.2) Sodium Level 139 mmol/L (136-145) Potassium Level 4.9 mmol/L (3.5-5.1) Chloride Level 106 mmol/L (98-107) Carbon Dioxide Level 25 mmol/L (21-32) Anion Gap 8 (6-14) Blood Urea Nitrogen 35 mg/dL (8-26) Creatinine 1.2 mg/dL (0.7-1.3) Estimated GFR (Cockcroft-Gault) 57.5 Glucose Level 189 mg/dL (70-99) Calcium Level 8.2 mg/dL (8.5-10.1) Test 02/09/17 08:16 02/09/17 12:23 02/09/17 17:18 02/10/17 07:16 Glucose (Fingerstick) 196 mg/dL (70-99) 154 mg/dL (70-99) 182 mg/dL (70-99) White Blood Count 9.4 x10^3/uL (4.0-11.0) Red Blood Count 3.12 x10^6/uL (4.30-5.70) Hemoglobin 9.3 g/dL (13.0-17.5) Hematocrit 27.5 % (39.0-53.0) Mean Corpuscular Volume 88 fL (79-100) Mean Corpuscular Hemoglobin 30 pg (25-35) Mean Corpuscular Hemoglobin Concent 34 g/dL (31-37) Red Cell Distribution Width 14.0 % (11.5-14.5) Platelet Count 175 x10^3/uL (140-400) Neutrophils (%) (Auto) 87 % (31-73) Lymphocytes (%) (Auto) 8 % (24-48) Monocytes (%) (Auto) 5 % (0-9) Eosinophils (%) (Auto) 0 % (0-3) Basophils (%) (Auto) 0 % (0-3) Neutrophils # (Auto) 8.2 x10^3uL (1.8-7.7) Lymphocytes # (Auto) 0.7 x10^3/uL (1.0-4.8) Monocytes # (Auto) 0.5 x10^3/uL (0.0-1.1) Eosinophils # (Auto) 0.0 x10^3/uL (0.0-0.7) Basophils # (Auto) 0.0 x10^3/uL (0.0-0.2) Sodium Level 142 mmol/L (136-145) Potassium Level 4.3 mmol/L (3.5-5.1) Chloride Level 107 mmol/L (98-107) Carbon Dioxide Level 26 mmol/L (21-32) Anion Gap 9 (6-14) Blood Urea Nitrogen 32 mg/dL (8-26) Creatinine 1.4 mg/dL (0.7-1.3) Estimated GFR (Cockcroft-Gault) 48.2 Glucose Level 170 mg/dL (70-99) Calcium Level 8.2 mg/dL (8.5-10.1) Laboratory Tests Test 02/09/17 12:23 02/09/17 17:18 02/10/17 07:16 Glucose (Fingerstick) 154 mg/dL (70-99) 182 mg/dL (70-99) White Blood Count 9.4 x10^3/uL (4.0-11.0) Red Blood Count 3.12 x10^6/uL (4.30-5.70) Hemoglobin 9.3 g/dL (13.0-17.5) Hematocrit 27.5 % (39.0-53.0) Mean Corpuscular Volume 88 fL (79-100) Mean Corpuscular Hemoglobin 30 pg (25-35) Mean Corpuscular Hemoglobin Concent 34 g/dL (31-37) Red Cell Distribution Width 14.0 % (11.5-14.5) Platelet Count 175 x10^3/uL (140-400) Neutrophils (%) (Auto) 87 % (31-73) Lymphocytes (%) (Auto) 8 % (24-48) Monocytes (%) (Auto) 5 % (0-9) Eosinophils (%) (Auto) 0 % (0-3) Basophils (%) (Auto) 0 % (0-3) Neutrophils # (Auto) 8.2 x10^3uL (1.8-7.7) Lymphocytes # (Auto) 0.7 x10^3/uL (1.0-4.8) Monocytes # (Auto) 0.5 x10^3/uL (0.0-1.1) Eosinophils # (Auto) 0.0 x10^3/uL (0.0-0.7) Basophils # (Auto) 0.0 x10^3/uL (0.0-0.2) Sodium Level 142 mmol/L (136-145) Potassium Level 4.3 mmol/L (3.5-5.1) Chloride Level 107 mmol/L (98-107) Carbon Dioxide Level 26 mmol/L (21-32) Anion Gap 9 (6-14) Blood Urea Nitrogen 32 mg/dL (8-26) Creatinine 1.4 mg/dL (0.7-1.3) Estimated GFR (Cockcroft-Gault) 48.2 Glucose Level 170 mg/dL (70-99) Calcium Level 8.2 mg/dL (8.5-10.1) Medications Current Medications Ondansetron HCl (Zofran) 4 mg PRN Q6HRS PRN IV NAUSEA/VOMITING; Start at 07:00; Stop 02/08/17 at 06:59; Status DC Fentanyl Citrate (Fentanyl 2ml Vial) 25 mcg PRN Q5MIN PRN IV MILD PAIN Last administered on 02/07/17 14:08; Start 02/07/17 at 07:00; Stop 02/08/17 at 06 :59; Status DC Fentanyl Citrate (Fentanyl 2ml Vial) 50 mcg PRN Q5MIN PRN IV MODERATE PAIN; Start 02/07/17 at 07:00; Stop 02/08/17 at 06:59; Status DC Morphine Sulfate 1 mg PRN Q10MIN PRN IV SEVERE PAIN; Start 02/07/17 at 07:00; Stop 02/08/17 at 06:59; Status DC Ringer's Solution 1,000 ml @ 0 mls/hr Q0M IV Last administered on 02/07/17 13:45; Start 02/07/17 at 07:00; Stop 02/07/17 at 18:59; Status DC Lidocaine HCl (Xylocaine-Mpf 1% Vial) 2 ml PRN 1X PRN ID PRIOR TO IV START; Start 02/07/17 at 07:00; Stop 02/08/17 at 06:59; Status DC Hydromorphone HCl (Dilaudid) 0.5 mg PRN Q10MIN PRN IV SEV PAIN, Second choice; Start 02/07/17 at 07:00; Stop 02/08/17 at 06:59; Status DC Prochlorperazine Edisylate (Compazine) 5 mg PACU PRN PRN IV NAUSEA, MRX1; Start 02/07/17 at 07:00; Stop 02/08/17 at 06:59; Status DC Cefazolin Sodium/ Dextrose 50 ml @ 100 mls/hr 1X PREOP PRN IV PRIOR TO PROCEDURE; Start 02/07/17 at 06:00; Stop 02/07/17 at 18:00; Status DC Cefoxitin Sodium 2 gm/Sodium Chloride 100 ml @ 200 mls/hr 1X ONCE IV ; Start 02/07/17 at 07:00; Stop 02/07/17 at 07:29; Status UNV Cefoxitin Sodium 100 ml @ 200 mls/hr ONCE ONCE IV Last administered on 08:16; Start 02/07/17 at 07:15; Stop 02/07/17 at 07:44; Status DC Lidocaine HCl (Lidocaine Pf 2% Vial) 5 ml STK-MED ONCE .ROUTE ; Start 02/07/17 at 07:29; Stop 02/07/17 at 07:30; Status DC Etomidate (Amidate) 20 mg STK-MED ONCE IV ; Start 02/07/17 at 07:29; Stop 02/14 at 07:30; Status DC Fentanyl Citrate (Fentanyl 2ml Vial) 100 mcg STK-MED ONCE .ROUTE ; Start at 07:29; Stop 02/07/17 at 07:30; Status DC Rocuronium [place] (Zemuron) 100 mg STK-MED ONCE .ROUTE ; Start 02/07/17 at 07: 29; Stop 02/07/17 at 07:30; Status DC Dexamethasone Sodium Phosphate (Decadron) 20 mg STK-MED ONCE .ROUTE ; Start 02/14 at 08:16; Stop 02/07/17 at 08:17; Status DC Ondansetron HCl (Zofran) 4 mg STK-MED ONCE .ROUTE ; Start 02/07/17 at 08:16; Stop 02/07/17 at 08:17; Status DC Esmolol HCl (Brevibloc) 100 mg STK-MED ONCE IV ; Start 02/07/17 at 08:16; Stop 02/07/17 at 08:17; Status DC Phenylephrine HCl (Cheng-Synephrine Inj) 10 mg STK-MED ONCE .ROUTE ; Start at 08:16; Stop 02/07/17 at 08:17; Status DC Fentanyl Citrate (Fentanyl 2ml Vial) 100 mcg STK-MED ONCE .ROUTE ; Start at 08:17; Stop 02/07/17 at 08:18; Status DC Labetalol HCl (Normodyne) 20 mg STK-MED ONCE .ROUTE ; Start 02/07/17 at 08:50; Stop 02/07/17 at 08:51; Status DC Fentanyl Citrate (Fentanyl 2ml Vial) 100 mcg STK-MED ONCE .ROUTE ; Start at 09:21; Stop 02/07/17 at 09:22; Status DC Rocuronium [place] (Zemuron) 100 mg STK-MED ONCE .ROUTE ; Start 02/07/17 at 09: 30; Stop 02/07/17 at 09:31; Status DC Cellulose 1 each STK-MED ONCE .ROUTE Last administered on 02/07/17 10:57; Start 02/07/17 at 09:57; Stop 02/07/17 at 10:57; Status DC Albumin Human 500 ml @ As Directed STK-MED ONCE IV ; Start 02/07/17 at 11:06; Stop 02/07/17 at 11:07; Status DC Neostigmine Methylsulfate (Bloxiverz) 10 mg STK-MED ONCE .ROUTE ; Start at 11:20; Stop 02/07/17 at 11:21; Status DC Glycopyrrolate (Robinul) 1 mg STK-MED ONCE .ROUTE ; Start 02/07/17 at 11:20; Stop 02/07/17 at 11:21; Status DC Famotidine (Pepcid) 20 mg QHS IVP Last administered on 02/09/17 21:28; Start 02/07/17 at 21:00 Enoxaparin Sodium (Lovenox 30mg Syringe) 30 mg Q24H SQ Last administered on 08:13; Start 02/08/17 at 08:00; Stop 02/09/17 at 10:41; Status DC Sodium Chloride (Normal Saline Flush) 3 ml QSHIFT PRN IV AFTER MEDS AND BLOOD DRAWS; Start 02/07/17 at 12:00 Ringer's Solution 1,000 ml @ 100 mls/hr Q10H IV Last administered on 05:53; Start 02/07/17 at 11:49 Naloxone HCl (Narcan) 0.4 mg PRN Q2MIN PRN IV SEE INSTRUCTIONS; Start at 12:00 Sodium Chloride 1,000 ml @ 25 mls/hr Q24H IV Last administered on 02/07/17 11:49; Start 02/07/17 at 11:49 Morphine Sulfate 30 ml @ 0 mls/hr CONT PRN PRN IV PROTOCOL Last administered on 02/07/17 15:13; Start 02/07/17 at 12:00 Ondansetron HCl (Zofran) 4 mg PRN Q6HRS PRN IV MAKI, 1ST CHOICE; Start 02/07 at 12:00 Insulin Aspart (NovoLOG VIAL) 100 unit STK-MED ONCE SQ ; Start 02/07/17 at 14: 01; Stop 02/07/17 at 14:02; Status DC Insulin Aspart (NovoLOG VIAL) 3 unit 1X ONCE SQ Last administered on 13:58; Start 02/07/17 at 14:15; Stop 02/07/17 at 14:16; Status DC Pneumococcal Polyvalent Vaccine (Do NOT chart on this placeholder) 1X ONCE MC ; Start 02/07/17 at 16:15; Stop 02/07/17 at 16:16; Status UNV Albuterol/ Ipratropium (Duoneb) 3 ml PRN Q6HRS PRN NEB SHORTNESS OF BREATH; Start 02/08/17 at 09:30; Stop 02/08/17 at 09:35; Status DC Albuterol Sulfate (Ventolin Neb Soln) 2.5 mg PRN Q4HRS PRN NEB SHORTNESS OF BREATH; Start 02/08/17 at 09:30 Insulin Aspart (NovoLOG) 0-9 UNITS TIDWMEALS SQ Last administered on 12:26; Start 02/08/17 at 12:00 Dextrose (Dextrose 50%-Water Syringe) 12.5 gm PRN Q15MIN PRN IV SEE COMMENTS; Start 02/08/17 at 09:30 Enoxaparin Sodium (Lovenox 40mg Syringe) 40 mg Q24H SQ ; Start 02/10/17 at 08: 00; Stop 02/10/17 at 08:00; Status DC Enoxaparin Sodium (Lovenox 60mg Syringe) 60 mg Q12HR SQ Last administered on 08:14; Start 02/09/17 at 20:00 Info 1 each PRN DAILY PRN MC SEE COMMENTS; Start 02/09/17 at 22:30 Active Scripts Active Reported [Lidocaine] 15 Ml PO Q6HRS PRN [Ondansetron] 4 Mg IV PRN Q4HRS PRN [Pepcid Suspension] 20 IV BID Duoneb 0.5-3(2.5) Mg/3 Ml (Albuterol/Ipratropium) 3 Ml Ampul.neb 3 Ml NEB PRN Q6HRS PRN Novolog (Insulin Aspart) 100 Unit/1 Ml Cartridge 0 SQ Q6HRS Vitals/I & O Vital Sign - Last 24 Hours 02/09/17 02/09/17 02/09/17 02/09/17 12:00 12:00 12:00 13:00 Temp 99.0 99.0 Pulse 114 117 112 Resp 16 16 B/P (MAP) 134/62 (86) 146/78 (100) 135/79 (97) Pulse Ox 100 100 O2 Delivery Room Air Room Air Room Air 02/09/17 02/09/17 02/09/17 02/09/17 14:00 16:30 19:20 20:00 Temp 98.3 98.3 Pulse 123 117 Resp 14 18 B/P (MAP) 139/79 (99) 123/78 (93) Pulse Ox 99 96 O2 Delivery Room Air Room Air Room Air Room Air 02/09/17 02/10/17 02/10/17 02/10/17 23:18 03:21 07:00 07:15 Temp 98.5 98.5 98.1 98.5 98.5 98.1 Pulse 109 104 101 Resp 18 18 18 B/P (MAP) 126/76 (93) 130/78 (95) 148/81 (103) Pulse Ox 97 96 98 O2 Delivery Room Air Room Air Room Air Room Air Nutrition Consultation Dietary Evaluation: Recommendations by RD: PPN/TPN Comments: REC resume when able TF via J tube: Diabetisource AC @10 ml/hr, increase 10 ml/hr q8 hrs to goal of 50 ml/hr w/100 ml flushes q6 hrs STD TPN at this time per MD Expected Outcomes/Goals: tolerate TF at goal Malnutrition Findings: Food and Nutrition Intake (Mod: <75% est energy req 7days Body Fat Depletion (Non Severe: Mild Depletion Weight Status: Underweight FILIPPO PERALTA MD Feb 10, 2017 11:08
[2017-02-10] MEDS: IV NORMAL SALINE 1000ML BAG 1,000 ML IV SCH (11:49)
--- NOTE | 2017-02-10 13:14 | PDOC ---
SURGICAL PROGRESS NOTE Subjective no nausea today Noted DVT from PICC Vital Signs Vital Signs Date Time Temp Pulse Resp B/P (MAP) Pulse Ox O2 Delivery O2 Flow Rate FiO2 02/10/17 11:00 99.2 114 18 107/94 (98) 94 Room Air 99.2 General: Alert, Oriented X3, Cooperative, No acute distress HEENT: Other (NG in place) Abdomen: Soft, Other (drain serosang, dressing dry) Labs Laboratory Tests Test 02/08/17 17:20 02/08/17 22:45 02/09/17 05:45 02/09/17 08:16 Glucose (Fingerstick) 158 mg/dL (70-99) 196 mg/dL (70-99) Nasal Screen MRSA (PCR) Negative (Negative) White Blood Count 9.7 x10^3/uL (4.0-11.0) Red Blood Count 2.90 x10^6/uL (4.30-5.70) Hemoglobin 8.7 g/dL (13.0-17.5) Hematocrit 25.4 % (39.0-53.0) Mean Corpuscular Volume 88 fL (79-100) Mean Corpuscular Hemoglobin 30 pg (25-35) Mean Corpuscular Hemoglobin Concent 34 g/dL (31-37) Red Cell Distribution Width 13.8 % (11.5-14.5) Platelet Count 168 x10^3/uL (140-400) Neutrophils (%) (Auto) 86 % (31-73) Lymphocytes (%) (Auto) 8 % (24-48) Monocytes (%) (Auto) 6 % (0-9) Eosinophils (%) (Auto) 0 % (0-3) Basophils (%) (Auto) 0 % (0-3) Neutrophils # (Auto) 8.3 x10^3uL (1.8-7.7) Lymphocytes # (Auto) 0.7 x10^3/uL (1.0-4.8) Monocytes # (Auto) 0.5 x10^3/uL (0.0-1.1) Eosinophils # (Auto) 0.0 x10^3/uL (0.0-0.7) Basophils # (Auto) 0.0 x10^3/uL (0.0-0.2) Sodium Level 139 mmol/L (136-145) Potassium Level 4.9 mmol/L (3.5-5.1) Chloride Level 106 mmol/L (98-107) Carbon Dioxide Level 25 mmol/L (21-32) Anion Gap 8 (6-14) Blood Urea Nitrogen 35 mg/dL (8-26) Creatinine 1.2 mg/dL (0.7-1.3) Estimated GFR (Cockcroft-Gault) 57.5 Glucose Level 189 mg/dL (70-99) Calcium Level 8.2 mg/dL (8.5-10.1) Test 02/09/17 12:23 02/09/17 17:18 02/10/17 07:16 Glucose (Fingerstick) 154 mg/dL (70-99) 182 mg/dL (70-99) White Blood Count 9.4 x10^3/uL (4.0-11.0) Red Blood Count 3.12 x10^6/uL (4.30-5.70) Hemoglobin 9.3 g/dL (13.0-17.5) Hematocrit 27.5 % (39.0-53.0) Mean Corpuscular Volume 88 fL (79-100) Mean Corpuscular Hemoglobin 30 pg (25-35) Mean Corpuscular Hemoglobin Concent 34 g/dL (31-37) Red Cell Distribution Width 14.0 % (11.5-14.5) Platelet Count 175 x10^3/uL (140-400) Neutrophils (%) (Auto) 87 % (31-73) Lymphocytes (%) (Auto) 8 % (24-48) Monocytes (%) (Auto) 5 % (0-9) Eosinophils (%) (Auto) 0 % (0-3) Basophils (%) (Auto) 0 % (0-3) Neutrophils # (Auto) 8.2 x10^3uL (1.8-7.7) Lymphocytes # (Auto) 0.7 x10^3/uL (1.0-4.8) Monocytes # (Auto) 0.5 x10^3/uL (0.0-1.1) Eosinophils # (Auto) 0.0 x10^3/uL (0.0-0.7) Basophils # (Auto) 0.0 x10^3/uL (0.0-0.2) Sodium Level 142 mmol/L (136-145) Potassium Level 4.3 mmol/L (3.5-5.1) Chloride Level 107 mmol/L (98-107) Carbon Dioxide Level 26 mmol/L (21-32) Anion Gap 9 (6-14) Blood Urea Nitrogen 32 mg/dL (8-26) Creatinine 1.4 mg/dL (0.7-1.3) Estimated GFR (Cockcroft-Gault) 48.2 Glucose Level 170 mg/dL (70-99) Calcium Level 8.2 mg/dL (8.5-10.1) Laboratory Tests Test 02/09/17 17:18 02/10/17 07:16 Glucose (Fingerstick) 182 mg/dL (70-99) White Blood Count 9.4 x10^3/uL (4.0-11.0) Red Blood Count 3.12 x10^6/uL (4.30-5.70) Hemoglobin 9.3 g/dL (13.0-17.5) Hematocrit 27.5 % (39.0-53.0) Mean Corpuscular Volume 88 fL (79-100) Mean Corpuscular Hemoglobin 30 pg (25-35) Mean Corpuscular Hemoglobin Concent 34 g/dL (31-37) Red Cell Distribution Width 14.0 % (11.5-14.5) Platelet Count 175 x10^3/uL (140-400) Neutrophils (%) (Auto) 87 % (31-73) Lymphocytes (%) (Auto) 8 % (24-48) Monocytes (%) (Auto) 5 % (0-9) Eosinophils (%) (Auto) 0 % (0-3) Basophils (%) (Auto) 0 % (0-3) Neutrophils # (Auto) 8.2 x10^3uL (1.8-7.7) Lymphocytes # (Auto) 0.7 x10^3/uL (1.0-4.8) Monocytes # (Auto) 0.5 x10^3/uL (0.0-1.1) Eosinophils # (Auto) 0.0 x10^3/uL (0.0-0.7) Basophils # (Auto) 0.0 x10^3/uL (0.0-0.2) Sodium Level 142 mmol/L (136-145) Potassium Level 4.3 mmol/L (3.5-5.1) Chloride Level 107 mmol/L (98-107) Carbon Dioxide Level 26 mmol/L (21-32) Anion Gap 9 (6-14) Blood Urea Nitrogen 32 mg/dL (8-26) Creatinine 1.4 mg/dL (0.7-1.3) Estimated GFR (Cockcroft-Gault) 48.2 Glucose Level 170 mg/dL (70-99) Calcium Level 8.2 mg/dL (8.5-10.1) Assessment/Plan Oneill TF again Hold on PICC with new DVT PPN leave ng in place Problems: GABINO MERRILL [employer]ING ATT[employer]ER Feb 10, 2017 13:14
[2017-02-10] MEDS: AMINO AC 3%/ELECTROLYTE/GLYCER 1,000 ML IV SCH (13:46)
[2017-02-10 15:00] VITALS: BP 137/84
[2017-02-10] MEDS: MORPHINE SULFATE 2 MG/ML DISP.SYRIN. IV PRN (16:39)
[2017-02-10 19:00] VITALS: BP 135/76
--- NOTE | 2017-02-10 19:29 | PDOC ---
Provider Note Provider Note Vascular Consult dictated IMP: Extensive DVT rt. UE , recent removal of PIC Plan: already on Lovenox, add elevation, will sign off ADEEL BASILIO MD Feb 10, 2017 19:29
[2017-02-10] MEDS: FAMOTIDINE 20 MG/2 ML VIAL IVP SCH (21:04)
--- NOTE | 2017-02-10 22:45 | CONS ---
DATE OF CONSULTATION: 02/10/2017 DIAGNOSIS: Extensive deep venous thrombosis, right upper arm. HISTORY OF PRESENT ILLNESS: This is an 86-year-old male who was recently undergone extensive abdominal surgery. He underwent exploratory laparotomy, lysis of adhesions and removal of abdominal wall masses, antrectomy and [id number]-[id number] reconstruction on the by Dr. Falcon. He had a PICC line in and when that arm developed swelling, the PICC line was removed and ultrasound showed extensive DVT in the right upper arm in the deep veins and also in the superficial veins. No prior history of DVT. PAST MEDICAL HISTORY: He has no known allergies. He does not take aspirin. Nonsmoker. He has had a coronary artery bypass, but no other major vascular problems. PHYSICAL EXAMINATION: GENERAL: Pleasant, cachectic male, who is alert, in no severe distress, trying to urinate. 2+ radial pulses. CARDIOVASCULAR: Heart rate is regular. Well healed median sternotomy. Nonlabored respirations. EXTREMITIES: Swelling in the right arm compared to the left, but not severe. No discoloration of the hand and pulses easily palpable. ABDOMEN: With dressings, 2+ popliteal pulses. IMPRESSION: Extensive deep venous thrombosis, right arm. He is already on Lovenox b.i.d. I recommend elevation, no other treatments. Thanks for allowing us to see him. ADEEL BASILIO MD DR: GIOVANNI/joshua JOB#: [id number] / [id number]
[2017-02-10 23:00] VITALS: BP 143/82
[2017-02-11] MEDS: IV RINGERS,LACTATED 1000ML 1,000 ML IV SCH ×3 (01:33→15:49)
[2017-02-11] MEDS: AMINO AC 3%/ELECTROLYTE/GLYCER 1,000 ML IV SCH ×2 (01:33→14:45)
[2017-02-11 03:00] VITALS: BP 143/83
[2017-02-11 04:40] LABS: BASO % 0 % (0-3); EOS % 0 % (0-3); HEMATOCRIT 25.5 % (39.0-53.0); HEMOGLOBIN 8.7 g/dL (13.0-17.5); LYMPH # 0.9 x10^3/uL (1.0-4.8); LYMPH % 8 % (24-48); MEAN CORPUSCULAR HEMOGLOBIN 30 pg (25-35); MEAN CORPUSCULAR HGB CONC 34 g/dL (31-37); MEAN CORPUSCULAR VOLUME 86 fL (79-100); MONO % 5 % (0-9); NEUT % 87 % (31-73); PLATELET COUNT 177 x10^3/uL (140-400); RED BLOOD COUNT 2.95 x10^6/uL (4.30-5.70); WHITE BLOOD COUNT 11.3 x10^3/uL (4.0-11.0)
[2017-02-11 05:50] LABS: CALCIUM 8.3 mg/dL (8.5-10.1); CREATININE 1.3 mg/dL (0.7-1.3); GFR 52.5; POTASSIUM 4.4 mmol/L (3.5-5.1)
[2017-02-11 07:00] VITALS: BP 149/87
[2017-02-11] MEDS ORDERED: diphenhydrAMINE 50 MG/ML VIAL IVP PRN (08:45)
--- NOTE | 2017-02-11 08:52 | PDOC ---
PROGRESS NOTES Chief Complaint Chief Complaint Gastric outlet obstruction New DVT Rt arm - PICC in site Hx perforated ulcer DISTANT PAST Frailty, gen weakness FULL code Fevers PMH: DM HTN CAD PUD CABG History of Present Illness History of Present Illness Some low grade temps last night - could be from DVT? RT arm seems less swollen PICC out, just has peripheral IV now left hand Tolerating TF via J tube fine ALso on PPN now No UA, not taking deep breaths WBC 11, not on abx ON lovenox BID - OK WITH GS FOR ME TO START NOVEL ORAL AC? HAd some sepsis/Sirs criteria last night with temp, tachypnea, tachycardia RN reports no sleep last night PLAN: Check UA and CXR re fevers Encourage IS ambulate with PT CBC again silvina LIkely needs SNU - SW consult If higher temps then consider BC If any desats consider r.o PE but unlikely arm DVT migrates to lungs Start lopressor 5 IV q6 - tachy and high efrain BP Benadryl IV for sleep prn Dw RN Vitals Vitals Vital Signs Date Time Temp Pulse Resp B/P (MAP) Pulse Ox O2 Delivery O2 Flow Rate FiO2 02/11/17 07:00 99.0 116 20 149/87 (107) 93 Room Air 99.0 Physical Exam General: Alert, Oriented X3, Cooperative, No acute distress Heart: Regular rate, Normal S1, Normal S2 Lungs: Clear Abdomen: Soft, Other (drain serosang, dressing dry) Extremities: No clubbing, No cyanosis Skin: No rashes, No breakdown Labs LABS Laboratory Tests Test 02/10/17 17:24 02/11/17 04:15 02/11/17 07:58 Glucose (Fingerstick) 188 mg/dL (70-99) 262 mg/dL (70-99) White Blood Count 11.3 x10^3/uL (4.0-11.0) Red Blood Count 2.95 x10^6/uL (4.30-5.70) Hemoglobin 8.7 g/dL (13.0-17.5) Hematocrit 25.5 % (39.0-53.0) Mean Corpuscular Volume 86 fL (79-100) Mean Corpuscular Hemoglobin 30 pg (25-35) Mean Corpuscular Hemoglobin Concent 34 g/dL (31-37) Red Cell Distribution Width 14.0 % (11.5-14.5) Platelet Count 177 x10^3/uL (140-400) Neutrophils (%) (Auto) 87 % (31-73) Lymphocytes (%) (Auto) 8 % (24-48) Monocytes (%) (Auto) 5 % (0-9) Eosinophils (%) (Auto) 0 % (0-3) Basophils (%) (Auto) 0 % (0-3) Neutrophils # (Auto) 9.8 x10^3uL (1.8-7.7) Lymphocytes # (Auto) 0.9 x10^3/uL (1.0-4.8) Monocytes # (Auto) 0.5 x10^3/uL (0.0-1.1) Eosinophils # (Auto) 0.0 x10^3/uL (0.0-0.7) Basophils # (Auto) 0.0 x10^3/uL (0.0-0.2) Sodium Level 141 mmol/L (136-145) Potassium Level 4.4 mmol/L (3.5-5.1) Chloride Level 105 mmol/L (98-107) Carbon Dioxide Level 26 mmol/L (21-32) Anion Gap 10 (6-14) Blood Urea Nitrogen 35 mg/dL (8-26) Creatinine 1.3 mg/dL (0.7-1.3) Estimated GFR (Cockcroft-Gault) 52.5 Glucose Level 260 mg/dL (70-99) Calcium Level 8.3 mg/dL (8.5-10.1) Review of Systems Review of Systems no sleep, no CP, no nausea Comment Review of Relevant I have reviewed the following items sukhwinder (where applicable) has been applied. Labs Laboratory Tests Test 02/09/17 12:23 02/09/17 17:18 02/10/17 07:16 02/10/17 17:24 Glucose (Fingerstick) 154 mg/dL (70-99) 182 mg/dL (70-99) 188 mg/dL (70-99) White Blood Count 9.4 x10^3/uL (4.0-11.0) Red Blood Count 3.12 x10^6/uL (4.30-5.70) Hemoglobin 9.3 g/dL (13.0-17.5) Hematocrit 27.5 % (39.0-53.0) Mean Corpuscular Volume 88 fL (79-100) Mean Corpuscular Hemoglobin 30 pg (25-35) Mean Corpuscular Hemoglobin Concent 34 g/dL (31-37) Red Cell Distribution Width 14.0 % (11.5-14.5) Platelet Count 175 x10^3/uL (140-400) Neutrophils (%) (Auto) 87 % (31-73) Lymphocytes (%) (Auto) 8 % (24-48) Monocytes (%) (Auto) 5 % (0-9) Eosinophils (%) (Auto) 0 % (0-3) Basophils (%) (Auto) 0 % (0-3) Neutrophils # (Auto) 8.2 x10^3uL (1.8-7.7) Lymphocytes # (Auto) 0.7 x10^3/uL (1.0-4.8) Monocytes # (Auto) 0.5 x10^3/uL (0.0-1.1) Eosinophils # (Auto) 0.0 x10^3/uL (0.0-0.7) Basophils # (Auto) 0.0 x10^3/uL (0.0-0.2) Sodium Level 142 mmol/L (136-145) Potassium Level 4.3 mmol/L (3.5-5.1) Chloride Level 107 mmol/L (98-107) Carbon Dioxide Level 26 mmol/L (21-32) Anion Gap 9 (6-14) Blood Urea Nitrogen 32 mg/dL (8-26) Creatinine 1.4 mg/dL (0.7-1.3) Estimated GFR (Cockcroft-Gault) 48.2 Glucose Level 170 mg/dL (70-99) Calcium Level 8.2 mg/dL (8.5-10.1) Test 02/11/17 04:15 02/11/17 07:58 White Blood Count 11.3 x10^3/uL (4.0-11.0) Red Blood Count 2.95 x10^6/uL (4.30-5.70) Hemoglobin 8.7 g/dL (13.0-17.5) Hematocrit 25.5 % (39.0-53.0) Mean Corpuscular Volume 86 fL (79-100) Mean Corpuscular Hemoglobin 30 pg (25-35) Mean Corpuscular Hemoglobin Concent 34 g/dL (31-37) Red Cell Distribution Width 14.0 % (11.5-14.5) Platelet Count 177 x10^3/uL (140-400) Neutrophils (%) (Auto) 87 % (31-73) Lymphocytes (%) (Auto) 8 % (24-48) Monocytes (%) (Auto) 5 % (0-9) Eosinophils (%) (Auto) 0 % (0-3) Basophils (%) (Auto) 0 % (0-3) Neutrophils # (Auto) 9.8 x10^3uL (1.8-7.7) Lymphocytes # (Auto) 0.9 x10^3/uL (1.0-4.8) Monocytes # (Auto) 0.5 x10^3/uL (0.0-1.1) Eosinophils # (Auto) 0.0 x10^3/uL (0.0-0.7) Basophils # (Auto) 0.0 x10^3/uL (0.0-0.2) Sodium Level 141 mmol/L (136-145) Potassium Level 4.4 mmol/L (3.5-5.1) Chloride Level 105 mmol/L (98-107) Carbon Dioxide Level 26 mmol/L (21-32) Anion Gap 10 (6-14) Blood Urea Nitrogen 35 mg/dL (8-26) Creatinine 1.3 mg/dL (0.7-1.3) Estimated GFR (Cockcroft-Gault) 52.5 Glucose Level 260 mg/dL (70-99) Calcium Level 8.3 mg/dL (8.5-10.1) Glucose (Fingerstick) 262 mg/dL (70-99) Laboratory Tests Test 02/10/17 17:24 02/11/17 04:15 02/11/17 07:58 Glucose (Fingerstick) 188 mg/dL (70-99) 262 mg/dL (70-99) White Blood Count 11.3 x10^3/uL (4.0-11.0) Red Blood Count 2.95 x10^6/uL (4.30-5.70) Hemoglobin 8.7 g/dL (13.0-17.5) Hematocrit 25.5 % (39.0-53.0) Mean Corpuscular Volume 86 fL (79-100) Mean Corpuscular Hemoglobin 30 pg (25-35) Mean Corpuscular Hemoglobin Concent 34 g/dL (31-37) Red Cell Distribution Width 14.0 % (11.5-14.5) Platelet Count 177 x10^3/uL (140-400) Neutrophils (%) (Auto) 87 % (31-73) Lymphocytes (%) (Auto) 8 % (24-48) Monocytes (%) (Auto) 5 % (0-9) Eosinophils (%) (Auto) 0 % (0-3) Basophils (%) (Auto) 0 % (0-3) Neutrophils # (Auto) 9.8 x10^3uL (1.8-7.7) Lymphocytes # (Auto) 0.9 x10^3/uL (1.0-4.8) Monocytes # (Auto) 0.5 x10^3/uL (0.0-1.1) Eosinophils # (Auto) 0.0 x10^3/uL (0.0-0.7) Basophils # (Auto) 0.0 x10^3/uL (0.0-0.2) Sodium Level 141 mmol/L (136-145) Potassium Level 4.4 mmol/L (3.5-5.1) Chloride Level 105 mmol/L (98-107) Carbon Dioxide Level 26 mmol/L (21-32) Anion Gap 10 (6-14) Blood Urea Nitrogen 35 mg/dL (8-26) Creatinine 1.3 mg/dL (0.7-1.3) Estimated GFR (Cockcroft-Gault) 52.5 Glucose Level 260 mg/dL (70-99) Calcium Level 8.3 mg/dL (8.5-10.1) Medications Current Medications Ondansetron HCl (Zofran) 4 mg PRN Q6HRS PRN IV NAUSEA/VOMITING; Start at 07:00; Stop 02/08/17 at 06:59; Status DC Fentanyl Citrate (Fentanyl 2ml Vial) 25 mcg PRN Q5MIN PRN IV MILD PAIN Last administered on 02/07/17t 14:08; Start 02/07/17 at 07:00; Stop 02/08/17 at 06 :59; Status DC Fentanyl Citrate (Fentanyl 2ml Vial) 50 mcg PRN Q5MIN PRN IV MODERATE PAIN; Start 02/07/17 at 07:00; Stop 02/08/17 at 06:59; Status DC Morphine Sulfate 1 mg PRN Q10MIN PRN IV SEVERE PAIN; Start 02/07/17 at 07:00; Stop 02/08/17 at 06:59; Status DC Ringer's Solution 1,000 ml @ 0 mls/hr Q0M IV Last administered on 02/07/17 13:45; Start 02/07/17 at 07:00; Stop 02/07/17 at 18:59; Status DC Lidocaine HCl (Xylocaine-Mpf 1% Vial) 2 ml PRN 1X PRN ID PRIOR TO IV START; Start 02/07/17 at 07:00; Stop 02/08/17 at 06:59; Status DC Hydromorphone HCl (Dilaudid) 0.5 mg PRN Q10MIN PRN IV SEV PAIN, Second choice; Start 02/07/17 at 07:00; Stop 02/08/17 at 06:59; Status DC Prochlorperazine Edisylate (Compazine) 5 mg PACU PRN PRN IV NAUSEA, MRX1; Start 02/07/17 at 07:00; Stop 02/08/17 at 06:59; Status DC Cefazolin Sodium/ Dextrose 50 ml @ 100 mls/hr 1X PREOP PRN IV PRIOR TO PROCEDURE; Start 02/07/17 at 06:00; Stop 02/07/17 at 18:00; Status DC Cefoxitin Sodium 2 gm/Sodium Chloride 100 ml @ 200 mls/hr 1X ONCE IV ; Start 02/07/17 at 07:00; Stop 02/07/17 at 07:29; Status UNV Cefoxitin Sodium 100 ml @ 200 mls/hr ONCE ONCE IV Last administered on 08:16; Start 02/07/17 at 07:15; Stop 02/07/17 at 07:44; Status DC Lidocaine HCl (Lidocaine Pf 2% Vial) 5 ml STK-MED ONCE .ROUTE ; Start 02/07/17 at 07:29; Stop 02/07/17 at 07:30; Status DC Etomidate (Amidate) 20 mg STK-MED ONCE IV ; Start 02/07/17 at 07:29; Stop 02/14 at 07:30; Status DC Fentanyl Citrate (Fentanyl 2ml Vial) 100 mcg STK-MED ONCE .ROUTE ; Start at 07:29; Stop 02/07/17 at 07:30; Status DC Rocuronium [place] (Zemuron) 100 mg STK-MED ONCE .ROUTE ; Start 02/07/17 at 07: 29; Stop 02/07/17 at 07:30; Status DC Dexamethasone Sodium Phosphate (Decadron) 20 mg STK-MED ONCE .ROUTE ; Start 02/14 at 08:16; Stop 02/07/17 at 08:17; Status DC Ondansetron HCl (Zofran) 4 mg STK-MED ONCE .ROUTE ; Start 02/07/17 at 08:16; Stop 02/07/17 at 08:17; Status DC Esmolol HCl (Brevibloc) 100 mg STK-MED ONCE IV ; Start 02/07/17 at 08:16; Stop 02/07/17 at 08:17; Status DC Phenylephrine HCl (Cheng-Synephrine Inj) 10 mg STK-MED ONCE .ROUTE ; Start at 08:16; Stop 02/07/17 at 08:17; Status DC Fentanyl Citrate (Fentanyl 2ml Vial) 100 mcg STK-MED ONCE .ROUTE ; Start at 08:17; Stop 02/07/17 at 08:18; Status DC Labetalol HCl (Normodyne) 20 mg STK-MED ONCE .ROUTE ; Start 02/07/17 at 08:50; Stop 02/07/17 at 08:51; Status DC Fentanyl Citrate (Fentanyl 2ml Vial) 100 mcg STK-MED ONCE .ROUTE ; Start at 09:21; Stop 02/07/17 at 09:22; Status DC Rocuronium [place] (Zemuron) 100 mg STK-MED ONCE .ROUTE ; Start 02/07/17 at 09: 30; Stop 02/07/17 at 09:31; Status DC Cellulose 1 each STK-MED ONCE .ROUTE Last administered on 02/07/17t 10:57; Start 02/07/17 at 09:57; Stop 02/07/17 at 10:57; Status DC Albumin Human 500 ml @ As Directed STK-MED ONCE IV ; Start 02/07/17 at 11:06; Stop 02/07/17 at 11:07; Status DC Neostigmine Methylsulfate (Bloxiverz) 10 mg STK-MED ONCE .ROUTE ; Start at 11:20; Stop 02/07/17 at 11:21; Status DC Glycopyrrolate (Robinul) 1 mg STK-MED ONCE .ROUTE ; Start 02/07/17 at 11:20; Stop 02/07/17 at 11:21; Status DC Famotidine (Pepcid) 20 mg QHS IVP Last administered on 02/10/17 21:04; Start 02/07/17 at 21:00 Enoxaparin Sodium (Lovenox 30mg Syringe) 30 mg Q24H SQ Last administered on 08:13; Start 02/08/17 at 08:00; Stop 02/09/17 at 10:41; Status DC Sodium Chloride (Normal Saline Flush) 3 ml QSHIFT PRN IV AFTER MEDS AND BLOOD DRAWS; Start 02/07/17 at 12:00 Ringer's Solution 1,000 ml @ 100 mls/hr Q10H IV Last administered on 01:33; Start 02/07/17 at 11:49 Naloxone HCl (Narcan) 0.4 mg PRN Q2MIN PRN IV SEE INSTRUCTIONS; Start at 12:00 Sodium Chloride 1,000 ml @ 25 mls/hr Q24H IV Last administered on 02/07/17 11:49; Start 02/07/17 at 11:49 Morphine Sulfate 30 ml @ 0 mls/hr CONT PRN PRN IV PROTOCOL Last administered on 02/07/17 15:13; Start 02/07/17 at 12:00; Stop 02/10/17 at 11:04; Status DC Ondansetron HCl (Zofran) 4 mg PRN Q6HRS PRN IV NAUESA, 1ST CHOICE; Start 02/07 at 12:00 Insulin Aspart (NovoLOG VIAL) 100 unit STK-MED ONCE SQ ; Start 02/07/17 at 14: 01; Stop 02/07/17 at 14:02; Status DC Insulin Aspart (NovoLOG VIAL) 3 unit 1X ONCE SQ Last administered on 13:58; Start 02/07/17 at 14:15; Stop 02/07/17 at 14:16; Status DC Pneumococcal Polyvalent Vaccine (Do NOT chart on this placeholder) 1X ONCE MC ; Start 02/07/17 at 16:15; Stop 02/07/17 at 16:16; Status UNV Albuterol/ Ipratropium (Duoneb) 3 ml PRN Q6HRS PRN NEB SHORTNESS OF BREATH; Start 02/08/17 at 09:30; Stop 02/08/17 at 09:35; Status DC Albuterol Sulfate (Ventolin Neb Soln) 2.5 mg PRN Q4HRS PRN NEB SHORTNESS OF BREATH; Start 02/08/17 at 09:30 Insulin Aspart (NovoLOG) 0-9 UNITS TIDWMEALS SQ Last administered on 18:00; Start 02/08/17 at 12:00; Stop 02/10/17 at 18:58; Status DC Dextrose (Dextrose 50%-Water Syringe) 12.5 gm PRN Q15MIN PRN IV SEE COMMENTS; Start 02/08/17 at 09:30; Stop 02/10/17 at 18:58; Status DC Enoxaparin Sodium (Lovenox 40mg Syringe) 40 mg Q24H SQ ; Start 02/10/17 at 08: 00; Stop 02/10/17 at 08:00; Status DC Enoxaparin Sodium (Lovenox 60mg Syringe) 60 mg Q12HR SQ Last administered on 21:07; Start 02/09/17 at 20:00 Info 1 each PRN DAILY PRN MC SEE COMMENTS; Start 02/09/17 at 22:30; Status Cancel Morphine Sulfate 2 mg PRN Q2HR PRN IV PAIN Last administered on 02/10/17 16: 39; Start 02/10/17 at 11:00 Amino Acids/ Glycerin/ Electrolytes 1,000 ml @ 80 mls/hr [id number] IV Last administered on 02/11/17 01:33; Start 02/10/17 at 13:45 Active Scripts Active Reported [Lidocaine] 15 Ml PO Q6HRS PRN [Ondansetron] 4 Mg IV PRN Q4HRS PRN [Pepcid Suspension] 20 IV BID Duoneb 0.5-3(2.5) Mg/3 Ml (Albuterol/Ipratropium) 3 Ml Ampul.neb 3 Ml NEB PRN Q6HRS PRN Novolog (Insulin Aspart) 100 Unit/1 Ml Cartridge 0 SQ Q6HRS Vitals/I & O Vital Sign - Last 24 Hours 02/10/17 02/10/17 02/10/17 02/10/17 11:00 15:00 16:39 17:19 Temp 99.2 98.5 99.2 98.5 Pulse 114 112 Resp 18 18 B/P (MAP) 107/94 (98) 137/84 (101) Pulse Ox 94 95 O2 Delivery Room Air Room Air Room Air Room Air 02/10/17 02/10/17 02/10/17 02/11/17 19:00 19:20 23:00 03:00 Temp 98.8 98.2 98.1 98.8 98.2 98.1 Pulse 105 103 109 Resp 18 18 18 B/P (MAP) 135/76 (95) 143/82 (102) 143/83 (103) Pulse Ox 95 96 93 O2 Delivery Room Air Room Air Room Air Room Air 02/11/17 07:00 Temp 99.0 99.0 Pulse 116 Resp 20 B/P (MAP) 149/87 (107) Pulse Ox 93 O2 Delivery Room Air Nutrition Consultation Dietary Evaluation: Recommendations by RD: PPN/TPN Comments: REC resume when able TF via J tube: Diabetisource AC @10 ml/hr, increase 10 ml/hr q8 hrs to goal of 50 ml/hr w/100 ml flushes q6 hrs STD TPN at this time per MD Expected Outcomes/Goals: tolerate TF at goal Malnutrition Findings: Food and Nutrition Intake (Mod: <75% est energy req 7days Body Fat Depletion (Non Severe: Mild Depletion Weight Status: Underweight FILIPPO PERALTA MD Feb 11, 2017 08:52
[2017-02-11] MEDS: IV NORMAL SALINE 1000ML BAG 1,000 ML IV SCH (09:10)
[2017-02-11] MEDS: METOPROLOL TARTRATE 5 MG/5 ML VIAL. IVP SCH ×3 (09:10→17:23)
[2017-02-11] MEDS: MORPHINE SULFATE 2 MG/ML DISP.SYRIN. IV PRN (09:11)
[2017-02-11] MEDS ORDERED: DEXTROSE 50% 25 GM / 50ML DISP.SYRIN. IV PRN (09:15)
--- NOTE | 2017-02-11 09:34 | RAD ---
Portable AP upright view CXR: Clinical indications: Postoperative fever. Comparison: January 19, 2017. 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 No acute lung infiltrate or pleural effusion or pulmonary edema or lung mass or pneumothorax is seen. The heart size, pulmonary vasculature, mediastinum and both parish are stable. Impression: No acute radiographic abnormality is seen.
[2017-02-11] MEDS: INSULIN ASPART 300 UNITS/3 ML INSULN.PEN SQ SCH ×3 (09:40→17:18)
[2017-02-11 11:00] VITALS: BP 140/77
[2017-02-11 11:01] LABS: BILIRUBIN,URINE NEGATIVE (NEG); GLUCOSE,URINE 250 mg/dL (NEG); NITRITE,URINE NEGATIVE (NEG); PROTEIN,URINE NEGATIVE (NEG-TRACE); UROBILINOGEN,URINE 0.2 mg/dL (0.2 mg/dL)
[2017-02-11 11:13] LABS: SQUAMOUS EPITHELIAL CELL,UR FEW /LPF
[2017-02-11 11:15] LABS: BACTERIA,URINE FEW /HPF (0-FEW); YEAST,URINE PRESENT /HPF
--- NOTE | 2017-02-11 12:12 | PDOC ---
GABINO MERRILL RESEARCH CHEF 02/11/17 1212: SURGICAL PROGRESS NOTE Subjective tolerating NG tube clamping tolerating tube feeds Vital Signs Vital Signs Date Time Temp Pulse Resp B/P (MAP) Pulse Ox O2 Delivery O2 Flow Rate FiO2 02/11/17 11:00 98.8 103 18 140/77 (98) 97 Room Air 98.8 02/11/17 10:37 3.0 I&O Intake and Output 02/12/17 07:00 Output Total 100 ml Balance -100 ml Output Urine Total 100 ml General: Alert, Cooperative HEENT: Other (NG clamped ) Abdomen: Soft, Other (dressing dry, SULMA serosang ) Labs Laboratory Tests Test 02/09/17 12:23 02/09/17 17:18 02/10/17 07:16 02/10/17 17:24 Glucose (Fingerstick) 154 mg/dL (70-99) 182 mg/dL (70-99) 188 mg/dL (70-99) White Blood Count 9.4 x10^3/uL (4.0-11.0) Red Blood Count 3.12 x10^6/uL (4.30-5.70) Hemoglobin 9.3 g/dL (13.0-17.5) Hematocrit 27.5 % (39.0-53.0) Mean Corpuscular Volume 88 fL (79-100) Mean Corpuscular Hemoglobin 30 pg (25-35) Mean Corpuscular Hemoglobin Concent 34 g/dL (31-37) Red Cell Distribution Width 14.0 % (11.5-14.5) Platelet Count 175 x10^3/uL (140-400) Neutrophils (%) (Auto) 87 % (31-73) Lymphocytes (%) (Auto) 8 % (24-48) Monocytes (%) (Auto) 5 % (0-9) Eosinophils (%) (Auto) 0 % (0-3) Basophils (%) (Auto) 0 % (0-3) Neutrophils # (Auto) 8.2 x10^3uL (1.8-7.7) Lymphocytes # (Auto) 0.7 x10^3/uL (1.0-4.8) Monocytes # (Auto) 0.5 x10^3/uL (0.0-1.1) Eosinophils # (Auto) 0.0 x10^3/uL (0.0-0.7) Basophils # (Auto) 0.0 x10^3/uL (0.0-0.2) Sodium Level 142 mmol/L (136-145) Potassium Level 4.3 mmol/L (3.5-5.1) Chloride Level 107 mmol/L (98-107) Carbon Dioxide Level 26 mmol/L (21-32) Anion Gap 9 (6-14) Blood Urea Nitrogen 32 mg/dL (8-26) Creatinine 1.4 mg/dL (0.7-1.3) Estimated GFR (Cockcroft-Gault) 48.2 Glucose Level 170 mg/dL (70-99) Calcium Level 8.2 mg/dL (8.5-10.1) Test 02/11/17 04:15 02/11/17 07:58 02/11/17 10:40 02/11/17 11:32 White Blood Count 11.3 x10^3/uL (4.0-11.0) Red Blood Count 2.95 x10^6/uL (4.30-5.70) Hemoglobin 8.7 g/dL (13.0-17.5) Hematocrit 25.5 % (39.0-53.0) Mean Corpuscular Volume 86 fL (79-100) Mean Corpuscular Hemoglobin 30 pg (25-35) Mean Corpuscular Hemoglobin Concent 34 g/dL (31-37) Red Cell Distribution Width 14.0 % (11.5-14.5) Platelet Count 177 x10^3/uL (140-400) Neutrophils (%) (Auto) 87 % (31-73) Lymphocytes (%) (Auto) 8 % (24-48) Monocytes (%) (Auto) 5 % (0-9) Eosinophils (%) (Auto) 0 % (0-3) Basophils (%) (Auto) 0 % (0-3) Neutrophils # (Auto) 9.8 x10^3uL (1.8-7.7) Lymphocytes # (Auto) 0.9 x10^3/uL (1.0-4.8) Monocytes # (Auto) 0.5 x10^3/uL (0.0-1.1) Eosinophils # (Auto) 0.0 x10^3/uL (0.0-0.7) Basophils # (Auto) 0.0 x10^3/uL (0.0-0.2) Sodium Level 141 mmol/L (136-145) Potassium Level 4.4 mmol/L (3.5-5.1) Chloride Level 105 mmol/L (98-107) Carbon Dioxide Level 26 mmol/L (21-32) Anion Gap 10 (6-14) Blood Urea Nitrogen 35 mg/dL (8-26) Creatinine 1.3 mg/dL (0.7-1.3) Estimated GFR (Cockcroft-Gault) 52.5 Glucose Level 260 mg/dL (70-99) Calcium Level 8.3 mg/dL (8.5-10.1) Glucose (Fingerstick) 262 mg/dL (70-99) 207 mg/dL (70-99) Urine Collection Type Unknown Urine Color Yellow Urine Clarity Clear Urine pH 5.0 Urine Specific [place] 1.010 Urine Protein Negative mg/dL (NEG-TRACE) Urine Glucose (UA) 250 mg/dL (NEG) Urine Ketones (Stick) Trace mg/dL (NEG) Urine Blood Small (NEG) Urine Nitrite Negative (NEG) Urine Bilirubin Negative (NEG) Urine Urobilinogen Dipstick 0.2 mg/dL (0.2 mg/dL) Urine Leukocyte Esterase Trace (NEG) Urine RBC 1-2 /HPF (0-2) Urine WBC 5-10 /HPF (0-4) Urine Squamous Epithelial Cells Few /LPF Urine Amorphous Sediment Present /HPF Urine Bacteria Few /HPF (0-FEW) Urine Mucus Mod /LPF Urine Yeast Present /HPF Laboratory Tests Test 02/10/17 17:24 02/11/17 04:15 02/11/17 07:58 02/11/17 10:40 Glucose (Fingerstick) 188 mg/dL (70-99) 262 mg/dL (70-99) White Blood Count 11.3 x10^3/uL (4.0-11.0) Red Blood Count 2.95 x10^6/uL (4.30-5.70) Hemoglobin 8.7 g/dL (13.0-17.5) Hematocrit 25.5 % (39.0-53.0) Mean Corpuscular Volume 86 fL (79-100) Mean Corpuscular Hemoglobin 30 pg (25-35) Mean Corpuscular Hemoglobin Concent 34 g/dL (31-37) Red Cell Distribution Width 14.0 % (11.5-14.5) Platelet Count 177 x10^3/uL (140-400) Neutrophils (%) (Auto) 87 % (31-73) Lymphocytes (%) (Auto) 8 % (24-48) Monocytes (%) (Auto) 5 % (0-9) Eosinophils (%) (Auto) 0 % (0-3) Basophils (%) (Auto) 0 % (0-3) Neutrophils # (Auto) 9.8 x10^3uL (1.8-7.7) Lymphocytes # (Auto) 0.9 x10^3/uL (1.0-4.8) Monocytes # (Auto) 0.5 x10^3/uL (0.0-1.1) Eosinophils # (Auto) 0.0 x10^3/uL (0.0-0.7) Basophils # (Auto) 0.0 x10^3/uL (0.0-0.2) Sodium Level 141 mmol/L (136-145) Potassium Level 4.4 mmol/L (3.5-5.1) Chloride Level 105 mmol/L (98-107) Carbon Dioxide Level 26 mmol/L (21-32) Anion Gap 10 (6-14) Blood Urea Nitrogen 35 mg/dL (8-26) Creatinine 1.3 mg/dL (0.7-1.3) Estimated GFR (Cockcroft-Gault) 52.5 Glucose Level 260 mg/dL (70-99) Calcium Level 8.3 mg/dL (8.5-10.1) Urine Collection Type Unknown Urine Color Yellow Urine Clarity Clear Urine pH 5.0 Urine Specific [place] 1.010 Urine Protein Negative mg/dL (NEG-TRACE) Urine Glucose (UA) 250 mg/dL (NEG) Urine Ketones (Stick) Trace mg/dL (NEG) Urine Blood Small (NEG) Urine Nitrite Negative (NEG) Urine Bilirubin Negative (NEG) Urine Urobilinogen Dipstick 0.2 mg/dL (0.2 mg/dL) Urine Leukocyte Esterase Trace (NEG) Urine RBC 1-2 /HPF (0-2) Urine WBC 5-10 /HPF (0-4) Urine Squamous Epithelial Cells Few /LPF Urine Amorphous Sediment Present /HPF Urine Bacteria Few /HPF (0-FEW) Urine Mucus Mod /LPF Urine Yeast Present /HPF Test 02/11/17 11:32 Glucose (Fingerstick) 207 mg/dL (70-99) Assessment/Plan ok to remove NG, sips/chips today continue TF Problems: ROSEY LOGAN MD 02/11/17 1516: SURGICAL PROGRESS NOTE Assessment/Plan pt seen happier with NG out family expresses concerns over mental status feel this is reflective of his hospitalization, meds will follow Problems: GABINO MERRILL APRN Feb 11, 2017 12:12 ROSEY LOGAN MD Feb 11, 2017 15:16
[2017-02-11] MEDS: ANTI-COAG MONITOR BY PHARMACY. MC PRN (14:38)
[2017-02-11 15:00] VITALS: BP 122/66
[2017-02-11] MEDS ORDERED: PIP/TAZO PER PHARMACY MC PRN (18:15)
[2017-02-11 19:00] VITALS: BP 139/69
[2017-02-11] MEDS ORDERED: VANCOMYCIN 1.5 GM in IV NORMAL SALINE 500ML BAG 500 ML IV ONE (19:00)
[2017-02-11] MEDS: VANCOMYCIN PER PHARMACY MC PRN (19:24)
[2017-02-11] MEDS: PIPERACILLIN/TAZOBACTAM 2.25 GM in IV NORMAL SALINE 50ML 50 ML IV SCH (21:22)
[2017-02-11] MEDS: FAMOTIDINE 20 MG/2 ML VIAL IVP SCH (21:22)
[2017-02-11 23:00] VITALS: BP 135/96
[2017-02-12] MEDS: VANCOMYCIN PER PHARMACY MC PRN ×2 (01:24→14:33)
[2017-02-12] MEDS: IV RINGERS,LACTATED 1000ML 1,000 ML IV SCH (01:49)
[2017-02-12 02:47] VITALS: BP 145/88
[2017-02-12] MEDS: AMINO AC 3%/ELECTROLYTE/GLYCER 1,000 ML IV SCH ×2 (02:54→15:52)
[2017-02-12 05:24] LABS: BASO % 0 % (0-3); EOS % 0 % (0-3); HEMATOCRIT 24.5 % (39.0-53.0); HEMOGLOBIN 8.1 g/dL (13.0-17.5); LYMPH # 1.3 x10^3/uL (1.0-4.8); LYMPH % 10 % (24-48); MEAN CORPUSCULAR HEMOGLOBIN 29 pg (25-35); MEAN CORPUSCULAR HGB CONC 33 g/dL (31-37); MEAN CORPUSCULAR VOLUME 87 fL (79-100); MONO % 5 % (0-9); NEUT % 85 % (31-73); PLATELET COUNT 183 x10^3/uL (140-400); RED BLOOD COUNT 2.81 x10^6/uL (4.30-5.70); RED CELL DISTRIBUTION WIDTH 14.1 % (11.5-14.5); WHITE BLOOD COUNT 12.4 x10^3/uL (4.0-11.0)
[2017-02-12] MEDS: PIPERACILLIN/TAZOBACTAM 2.25 GM in IV NORMAL SALINE 50ML 50 ML IV SCH ×3 (05:56→17:30)
[2017-02-12 05:57] LABS: CALCIUM 8.3 mg/dL (8.5-10.1); CREATININE 1.4 mg/dL (0.7-1.3); GFR 48.2; POTASSIUM 4.4 mmol/L (3.5-5.1)
[2017-02-12] MEDS: METOPROLOL TARTRATE 5 MG/5 ML VIAL. IVP SCH ×4 (06:00→17:30)
[2017-02-12 07:00] VITALS: BP 140/79
[2017-02-12] MEDS: INSULIN ASPART 300 UNITS/3 ML INSULN.PEN SQ SCH ×3 (08:57→17:38)
[2017-02-12] MEDS: RIVAROXABAN 15 MG TABLET. PO SCH ×2 (09:00→21:20)
--- NOTE | 2017-02-12 10:03 | PDOC ---
PROGRESS NOTES Chief Complaint Chief Complaint Gastric outlet obstruction s/p extensive abd sx with adhesiolysis, J tube insertion etc 02/07 New DVT Rt arm - 02/09 - PICC in site Hx perforated ulcer DISTANT PAST Frailty, gen weakness FULL code Fevers/SEPSIS (02/11) PMH: DM HTN CAD PUD CABG History of Present Illness History of Present Illness HAd the abd sx 02/07 CAme to floors from ICU on 02/09 Some low grade temps monday - could be from DVT? RT arm seems less swollen after removal of PICC and started on lovenox BID PICC out, just has peripheral IV now left hand Tolerating TF via J tube fine ALso on PPN now ALso on LR 100cc.hr TRIGERRED SEPSIS YESTERDAY - ID CONSULTED Escalated to IV vanc and zosyn NGT out - pt happy about that I did orded CXR and UA from monday's events -- atelectaisis and unimpressive UA Dw ID - Veronica today Monday and RN Nancy PLAN: dc LR 100cc.hr COnt Porcalamine at 80 along with TF via J tube dc lovnox BID Start xarelto 15 BID x 7 days tehn 20 PO qD x 3 mos max then stop (for DVT PICC line triggered) Encourage IS ambulate with PT CBC again silvina LIkely needs SNU - SW consult BC pending If any desats consider r.o PE but unlikely arm DVT migrates to lungs Would cont lopressor 5 IV q6 - tachy and high efrain BP Benadryl IV for sleep prn Dw RN Nancy Vitals Vitals Vital Signs Date Time Temp Pulse Resp B/P (MAP) Pulse Ox O2 Delivery O2 Flow Rate FiO2 02/12/17 07:00 97.5 89 18 140/79 (99) 96 Room Air 97.5 02/11/17 10:37 3.0 Physical Exam General: Alert, Cooperative Heart: Regular rate, Normal S1, Normal S2 Lungs: Clear Abdomen: Soft, Other (dressing dry, SULMA serosang ) Extremities: No clubbing, No cyanosis Skin: No rashes, No breakdown Labs LABS Laboratory Tests Test 02/11/17 10:40 02/11/17 11:32 02/11/17 16:35 02/11/17 19:45 Urine Collection Type Unknown Urine Color Yellow Urine Clarity Clear Urine pH 5.0 Urine Specific [place] 1.010 Urine Protein Negative mg/dL (NEG-TRACE) Urine Glucose (UA) 250 mg/dL (NEG) Urine Ketones (Stick) Trace mg/dL (NEG) Urine Blood Small (NEG) Urine Nitrite Negative (NEG) Urine Bilirubin Negative (NEG) Urine Urobilinogen Dipstick 0.2 mg/dL (0.2 mg/dL) Urine Leukocyte Esterase Trace (NEG) Urine RBC 1-2 /HPF (0-2) Urine WBC 5-10 /HPF (0-4) Urine Squamous Epithelial Cells Few /LPF Urine Amorphous Sediment Present /HPF Urine Bacteria Few /HPF (0-FEW) Urine Mucus Mod /LPF Urine Yeast Present /HPF Glucose (Fingerstick) 207 mg/dL (70-99) 158 mg/dL (70-99) Lactic Acid Level 1.2 mmol/L (0.4-2.0) Test 02/11/17 20:40 02/12/17 03:33 02/12/17 07:45 Glucose (Fingerstick) 218 mg/dL (70-99) 312 mg/dL (70-99) White Blood Count 12.4 x10^3/uL (4.0-11.0) Red Blood Count 2.81 x10^6/uL (4.30-5.70) Hemoglobin 8.1 g/dL (13.0-17.5) Hematocrit 24.5 % (39.0-53.0) Mean Corpuscular Volume 87 fL (79-100) Mean Corpuscular Hemoglobin 29 pg (25-35) Mean Corpuscular Hemoglobin Concent 33 g/dL (31-37) Red Cell Distribution Width 14.1 % (11.5-14.5) Platelet Count 183 x10^3/uL (140-400) Neutrophils (%) (Auto) 85 % (31-73) Lymphocytes (%) (Auto) 10 % (24-48) Monocytes (%) (Auto) 5 % (0-9) Eosinophils (%) (Auto) 0 % (0-3) Basophils (%) (Auto) 0 % (0-3) Neutrophils # (Auto) 10.5 x10^3uL (1.8-7.7) Lymphocytes # (Auto) 1.3 x10^3/uL (1.0-4.8) Monocytes # (Auto) 0.6 x10^3/uL (0.0-1.1) Eosinophils # (Auto) 0.0 x10^3/uL (0.0-0.7) Basophils # (Auto) 0.0 x10^3/uL (0.0-0.2) Sodium Level 140 mmol/L (136-145) Potassium Level 4.4 mmol/L (3.5-5.1) Chloride Level 105 mmol/L (98-107) Carbon Dioxide Level 27 mmol/L (21-32) Anion Gap 8 (6-14) Blood Urea Nitrogen 38 mg/dL (8-26) Creatinine 1.4 mg/dL (0.7-1.3) Estimated GFR (Cockcroft-Gault) 48.2 Glucose Level 143 mg/dL (70-99) Calcium Level 8.3 mg/dL (8.5-10.1) Review of Systems Review of Systems minimal verbal output to me today Comment Review of Relevant I have reviewed the following items sukhwinder (where applicable) has been applied. Labs Laboratory Tests Test 02/10/17 17:24 02/11/17 04:15 02/11/17 07:58 02/11/17 10:40 Glucose (Fingerstick) 188 mg/dL (70-99) 262 mg/dL (70-99) White Blood Count 11.3 x10^3/uL (4.0-11.0) Red Blood Count 2.95 x10^6/uL (4.30-5.70) Hemoglobin 8.7 g/dL (13.0-17.5) Hematocrit 25.5 % (39.0-53.0) Mean Corpuscular Volume 86 fL (79-100) Mean Corpuscular Hemoglobin 30 pg (25-35) Mean Corpuscular Hemoglobin Concent 34 g/dL (31-37) Red Cell Distribution Width 14.0 % (11.5-14.5) Platelet Count 177 x10^3/uL (140-400) Neutrophils (%) (Auto) 87 % (31-73) Lymphocytes (%) (Auto) 8 % (24-48) Monocytes (%) (Auto) 5 % (0-9) Eosinophils (%) (Auto) 0 % (0-3) Basophils (%) (Auto) 0 % (0-3) Neutrophils # (Auto) 9.8 x10^3uL (1.8-7.7) Lymphocytes # (Auto) 0.9 x10^3/uL (1.0-4.8) Monocytes # (Auto) 0.5 x10^3/uL (0.0-1.1) Eosinophils # (Auto) 0.0 x10^3/uL (0.0-0.7) Basophils # (Auto) 0.0 x10^3/uL (0.0-0.2) Sodium Level 141 mmol/L (136-145) Potassium Level 4.4 mmol/L (3.5-5.1) Chloride Level 105 mmol/L (98-107) Carbon Dioxide Level 26 mmol/L (21-32) Anion Gap 10 (6-14) Blood Urea Nitrogen 35 mg/dL (8-26) Creatinine 1.3 mg/dL (0.7-1.3) Estimated GFR (Cockcroft-Gault) 52.5 Glucose Level 260 mg/dL (70-99) Calcium Level 8.3 mg/dL (8.5-10.1) Urine Collection Type Unknown Urine Color Yellow Urine Clarity Clear Urine pH 5.0 Urine Specific [place] 1.010 Urine Protein Negative mg/dL (NEG-TRACE) Urine Glucose (UA) 250 mg/dL (NEG) Urine Ketones (Stick) Trace mg/dL (NEG) Urine Blood Small (NEG) Urine Nitrite Negative (NEG) Urine Bilirubin Negative (NEG) Urine Urobilinogen Dipstick 0.2 mg/dL (0.2 mg/dL) Urine Leukocyte Esterase Trace (NEG) Urine RBC 1-2 /HPF (0-2) Urine WBC 5-10 /HPF (0-4) Urine Squamous Epithelial Cells Few /LPF Urine Amorphous Sediment Present /HPF Urine Bacteria Few /HPF (0-FEW) Urine Mucus Mod /LPF Urine Yeast Present /HPF Test 02/11/17 11:32 02/11/17 16:35 02/11/17 19:45 02/11/17 20:40 Glucose (Fingerstick) 207 mg/dL (70-99) 158 mg/dL (70-99) 218 mg/dL (70-99) Lactic Acid Level 1.2 mmol/L (0.4-2.0) Test 02/12/17 03:33 02/12/17 07:45 White Blood Count 12.4 x10^3/uL (4.0-11.0) Red Blood Count 2.81 x10^6/uL (4.30-5.70) Hemoglobin 8.1 g/dL (13.0-17.5) Hematocrit 24.5 % (39.0-53.0) Mean Corpuscular Volume 87 fL (79-100) Mean Corpuscular Hemoglobin 29 pg (25-35) Mean Corpuscular Hemoglobin Concent 33 g/dL (31-37) Red Cell Distribution Width 14.1 % (11.5-14.5) Platelet Count 183 x10^3/uL (140-400) Neutrophils (%) (Auto) 85 % (31-73) Lymphocytes (%) (Auto) 10 % (24-48) Monocytes (%) (Auto) 5 % (0-9) Eosinophils (%) (Auto) 0 % (0-3) Basophils (%) (Auto) 0 % (0-3) Neutrophils # (Auto) 10.5 x10^3uL (1.8-7.7) Lymphocytes # (Auto) 1.3 x10^3/uL (1.0-4.8) Monocytes # (Auto) 0.6 x10^3/uL (0.0-1.1) Eosinophils # (Auto) 0.0 x10^3/uL (0.0-0.7) Basophils # (Auto) 0.0 x10^3/uL (0.0-0.2) Sodium Level 140 mmol/L (136-145) Potassium Level 4.4 mmol/L (3.5-5.1) Chloride Level 105 mmol/L (98-107) Carbon Dioxide Level 27 mmol/L (21-32) Anion Gap 8 (6-14) Blood Urea Nitrogen 38 mg/dL (8-26) Creatinine 1.4 mg/dL (0.7-1.3) Estimated GFR (Cockcroft-Gault) 48.2 Glucose Level 143 mg/dL (70-99) Calcium Level 8.3 mg/dL (8.5-10.1) Glucose (Fingerstick) 312 mg/dL (70-99) Laboratory Tests Test 02/11/17 10:40 02/11/17 11:32 02/11/17 16:35 02/11/17 19:45 Urine Collection Type Unknown Urine Color Yellow Urine Clarity Clear Urine pH 5.0 Urine Specific [place] 1.010 Urine Protein Negative mg/dL (NEG-TRACE) Urine Glucose (UA) 250 mg/dL (NEG) Urine Ketones (Stick) Trace mg/dL (NEG) Urine Blood Small (NEG) Urine Nitrite Negative (NEG) Urine Bilirubin Negative (NEG) Urine Urobilinogen Dipstick 0.2 mg/dL (0.2 mg/dL) Urine Leukocyte Esterase Trace (NEG) Urine RBC 1-2 /HPF (0-2) Urine WBC 5-10 /HPF (0-4) Urine Squamous Epithelial Cells Few /LPF Urine Amorphous Sediment Present /HPF Urine Bacteria Few /HPF (0-FEW) Urine Mucus Mod /LPF Urine Yeast Present /HPF Glucose (Fingerstick) 207 mg/dL (70-99) 158 mg/dL (70-99) Lactic Acid Level 1.2 mmol/L (0.4-2.0) Test 02/11/17 20:40 02/12/17 03:33 02/12/17 07:45 Glucose (Fingerstick) 218 mg/dL (70-99) 312 mg/dL (70-99) White Blood Count 12.4 x10^3/uL (4.0-11.0) Red Blood Count 2.81 x10^6/uL (4.30-5.70) Hemoglobin 8.1 g/dL (13.0-17.5) Hematocrit 24.5 % (39.0-53.0) Mean Corpuscular Volume 87 fL (79-100) Mean Corpuscular Hemoglobin 29 pg (25-35) Mean Corpuscular Hemoglobin Concent 33 g/dL (31-37) Red Cell Distribution Width 14.1 % (11.5-14.5) Platelet Count 183 x10^3/uL (140-400) Neutrophils (%) (Auto) 85 % (31-73) Lymphocytes (%) (Auto) 10 % (24-48) Monocytes (%) (Auto) 5 % (0-9) Eosinophils (%) (Auto) 0 % (0-3) Basophils (%) (Auto) 0 % (0-3) Neutrophils # (Auto) 10.5 x10^3uL (1.8-7.7) Lymphocytes # (Auto) 1.3 x10^3/uL (1.0-4.8) Monocytes # (Auto) 0.6 x10^3/uL (0.0-1.1) Eosinophils # (Auto) 0.0 x10^3/uL (0.0-0.7) Basophils # (Auto) 0.0 x10^3/uL (0.0-0.2) Sodium Level 140 mmol/L (136-145) Potassium Level 4.4 mmol/L (3.5-5.1) Chloride Level 105 mmol/L (98-107) Carbon Dioxide Level 27 mmol/L (21-32) Anion Gap 8 (6-14) Blood Urea Nitrogen 38 mg/dL (8-26) Creatinine 1.4 mg/dL (0.7-1.3) Estimated GFR (Cockcroft-Gault) 48.2 Glucose Level 143 mg/dL (70-99) Calcium Level 8.3 mg/dL (8.5-10.1) Medications Current Medications Ondansetron HCl (Zofran) 4 mg PRN Q6HRS PRN IV NAUSEA/VOMITING; Start at 07:00; Stop 02/08/17 at 06:59; Status DC Fentanyl Citrate (Fentanyl 2ml Vial) 25 mcg PRN Q5MIN PRN IV MILD PAIN Last administered on 02/07/17 14:08; Start 02/07/17 at 07:00; Stop 02/08/17 at 06 :59; Status DC Fentanyl Citrate (Fentanyl 2ml Vial) 50 mcg PRN Q5MIN PRN IV MODERATE PAIN; Start 02/07/17 at 07:00; Stop 02/08/17 at 06:59; Status DC Morphine Sulfate 1 mg PRN Q10MIN PRN IV SEVERE PAIN; Start 02/07/17 at 07:00; Stop 02/08/17 at 06:59; Status DC Ringer's Solution 1,000 ml @ 0 mls/hr Q0M IV Last administered on 02/07/17 13:45; Start 02/07/17 at 07:00; Stop 02/07/17 at 18:59; Status DC Lidocaine HCl (Xylocaine-Mpf 1% Vial) 2 ml PRN 1X PRN ID PRIOR TO IV START; Start 02/07/17 at 07:00; Stop 02/08/17 at 06:59; Status DC Hydromorphone HCl (Dilaudid) 0.5 mg PRN Q10MIN PRN IV SEV PAIN, Second choice; Start 02/07/17 at 07:00; Stop 02/08/17 at 06:59; Status DC Prochlorperazine Edisylate (Compazine) 5 mg PACU PRN PRN IV NAUSEA, MRX1; Start 02/07/17 at 07:00; Stop 02/08/17 at 06:59; Status DC Cefazolin Sodium/ Dextrose 50 ml @ 100 mls/hr 1X PREOP PRN IV PRIOR TO PROCEDURE; Start 02/07/17 at 06:00; Stop 02/07/17 at 18:00; Status DC Cefoxitin Sodium 2 gm/Sodium Chloride 100 ml @ 200 mls/hr 1X ONCE IV ; Start 02/07/17 at 07:00; Stop 02/07/17 at 07:29; Status UNV Cefoxitin Sodium 100 ml @ 200 mls/hr ONCE ONCE IV Last administered on t 08:16; Start 02/07/17 at 07:15; Stop 02/07/17 at 07:44; Status DC Lidocaine HCl (Lidocaine Pf 2% Vial) 5 ml STK-MED ONCE .ROUTE ; Start 02/07/17 at 07:29; Stop 02/07/17 at 07:30; Status DC Etomidate (Amidate) 20 mg STK-MED ONCE IV ; Start 02/07/17 at 07:29; Stop 02/14 at 07:30; Status DC Fentanyl Citrate (Fentanyl 2ml Vial) 100 mcg STK-MED ONCE .ROUTE ; Start at 07:29; Stop 02/07/17 at 07:30; Status DC Rocuronium [place] (Zemuron) 100 mg STK-MED ONCE .ROUTE ; Start 02/07/17 at 07: 29; Stop 02/07/17 at 07:30; Status DC Dexamethasone Sodium Phosphate (Decadron) 20 mg STK-MED ONCE .ROUTE ; Start 02/14 at 08:16; Stop 02/07/17 at 08:17; Status DC Ondansetron HCl (Zofran) 4 mg STK-MED ONCE .ROUTE ; Start 02/07/17 at 08:16; Stop 02/07/17 at 08:17; Status DC Esmolol HCl (Brevibloc) 100 mg STK-MED ONCE IV ; Start 02/07/17 at 08:16; Stop 02/07/17 at 08:17; Status DC Phenylephrine HCl (Cheng-Synephrine Inj) 10 mg STK-MED ONCE .ROUTE ; Start at 08:16; Stop 02/07/17 at 08:17; Status DC Fentanyl Citrate (Fentanyl 2ml Vial) 100 mcg STK-MED ONCE .ROUTE ; Start at 08:17; Stop 02/07/17 at 08:18; Status DC Labetalol HCl (Normodyne) 20 mg STK-MED ONCE .ROUTE ; Start 02/07/17 at 08:50; Stop 02/07/17 at 08:51; Status DC Fentanyl Citrate (Fentanyl 2ml Vial) 100 mcg STK-MED ONCE .ROUTE ; Start at 09:21; Stop 02/07/17 at 09:22; Status DC Rocuronium [place] (Zemuron) 100 mg STK-MED ONCE .ROUTE ; Start 02/07/17 at 09: 30; Stop 02/07/17 at 09:31; Status DC Cellulose 1 each STK-MED ONCE .ROUTE Last administered on 02/07/17t 10:57; Start 02/07/17 at 09:57; Stop 02/07/17 at 10:57; Status DC Albumin Human 500 ml @ As Directed STK-MED ONCE IV ; Start 02/07/17 at 11:06; Stop 02/07/17 at 11:07; Status DC Neostigmine Methylsulfate (Bloxiverz) 10 mg STK-MED ONCE .ROUTE ; Start at 11:20; Stop 02/07/17 at 11:21; Status DC Glycopyrrolate (Robinul) 1 mg STK-MED ONCE .ROUTE ; Start 02/07/17 at 11:20; Stop 02/07/17 at 11:21; Status DC Famotidine (Pepcid) 20 mg QHS IVP Last administered on 02/11/17t 21:22; Start 02/07/17 at 21:00 Enoxaparin Sodium (Lovenox 30mg Syringe) 30 mg Q24H SQ Last administered on 08:13; Start 02/08/17 at 08:00; Stop 02/09/17 at 10:41; Status DC Sodium Chloride (Normal Saline Flush) 3 ml QSHIFT PRN IV AFTER MEDS AND BLOOD DRAWS; Start 02/07/17 at 12:00 Ringer's Solution 1,000 ml @ 100 mls/hr Q10H IV Last administered on 15:49; Start 02/07/17 at 11:49; Stop 02/12/17 at 09:57; Status DC Naloxone HCl (Narcan) 0.4 mg PRN Q2MIN PRN IV SEE INSTRUCTIONS; Start at 12:00 Sodium Chloride 1,000 ml @ 25 mls/hr Q24H IV Last administered on 02/07/17 11:49; Start 02/07/17 at 11:49; Stop 02/12/17 at 07:53; Status DC Morphine Sulfate 30 ml @ 0 mls/hr CONT PRN PRN IV PROTOCOL Last administered on 02/07/17 15:13; Start 02/07/17 at 12:00; Stop 02/10/17 at 11:04; Status DC Ondansetron HCl (Zofran) 4 mg PRN Q6HRS PRN IV NAUESA, 1ST CHOICE; Start 02/07 at 12:00 Insulin Aspart (NovoLOG VIAL) 100 unit STK-MED ONCE SQ ; Start 02/07/17 at 14: 01; Stop 02/07/17 at 14:02; Status DC Insulin Aspart (NovoLOG VIAL) 3 unit 1X ONCE SQ Last administered on 13:58; Start 02/07/17 at 14:15; Stop 02/07/17 at 14:16; Status DC Pneumococcal Polyvalent Vaccine (Do NOT chart on this placeholder) 1X ONCE MC ; Start 02/07/17 at 16:15; Stop 02/07/17 at 16:16; Status UNV Albuterol/ Ipratropium (Duoneb) 3 ml PRN Q6HRS PRN NEB SHORTNESS OF BREATH; Start 02/08/17 at 09:30; Stop 02/08/17 at 09:35; Status DC Albuterol Sulfate (Ventolin Neb Soln) 2.5 mg PRN Q4HRS PRN NEB SHORTNESS OF BREATH; Start 02/08/17 at 09:30 Insulin Aspart (NovoLOG) 0-9 UNITS TIDWMEALS SQ Last administered on 18:00; Start 02/08/17 at 12:00; Stop 02/10/17 at 18:58; Status DC Dextrose (Dextrose 50%-Water Syringe) 12.5 gm PRN Q15MIN PRN IV SEE COMMENTS; Start 02/08/17 at 09:30; Stop 02/10/17 at 18:58; Status DC Enoxaparin Sodium (Lovenox 40mg Syringe) 40 mg Q24H SQ ; Start 02/10/17 at 08: 00; Stop 02/10/17 at 08:00; Status DC Enoxaparin Sodium (Lovenox 60mg Syringe) 60 mg Q12HR SQ Last administered on 08:49; Start 02/09/17 at 20:00; Stop 02/12/17 at 08:58; Status DC Info 1 each PRN DAILY PRN MC SEE COMMENTS; Start 02/09/17 at 22:30; Status Cancel Morphine Sulfate 2 mg PRN Q2HR PRN IV PAIN Last administered on 02/11/17 09: 11; Start 02/10/17 at 11:00 Amino Acids/ Glycerin/ Electrolytes 1,000 ml @ 80 mls/hr [id number] IV Last administered on 02/12/17 02:54; Start 02/10/17 at 13:45 Metoprolol Tartrate (Lopressor) 5 mg Q6HRS IVP Last administered on 02/12/17 06:00; Start 02/11/17 at 09:00 Diphenhydramine HCl (Benadryl) 25 mg PRN QHS PRN IVP SLEEP; Start 02/11/17 at 08:45 Insulin Aspart (NovoLOG) 0-9 UNITS TIDWMEALS SQ Last administered on 08:57; Start 02/11/17 at 09:30 Dextrose (Dextrose 50%-Water Syringe) 12.5 gm PRN Q15MIN PRN IV SEE COMMENTS; Start 02/11/17 at 09:15 Info (Anti-Coagulation Monitoring By Pharmacy) 1 each PRN DAILY PRN MC SEE COMMENTS Last administered on 02/11/17 14:38; Start 02/11/17 at 14:30 Piperacillin Sod/ Tazobactam Sod (Zosyn Per Pharmacy) 1 each PRN DAILY PRN MC SEE COMMENTS; Start 02/11/17 at 18:15 Vancomycin HCl (Vanco Per Pharmacy) 1 each PRN DAILY PRN MC SEE COMMENTS Last administered on 02/12/17 01:24; Start 02/11/17 at 18:15 Vancomycin HCl 1.5 gm/Sodium Chloride 500 ml @ 250 mls/hr 1X ONCE IV Last administered on 02/11/17 21:23; Start 02/11/17 at 19:00; Stop 02/11/17 at 20 :59; Status DC Piperacillin Sod/ Tazobactam Sod 2.25 gm/Sodium Chloride 50 ml @ 100 mls/hr Q6HRS IV Last administered on 02/12/17 05:56; Start 02/11/17 at 22:00 Vancomycin HCl 1 gm/Sodium Chloride 250 ml @ 250 mls/hr Q24H IV ; Start at 21:00 Vancomycin HCl 1 each 1X ONCE MC ; Start 02/13/17 at 20:30; Stop 02/13/17 at 20:31 Rivaroxaban (Xarelto) 15 mg BID PO ; Start 02/12/17 at 09:00 Active Scripts Active Reported [Lidocaine] 15 Ml PO Q6HRS PRN [Ondansetron] 4 Mg IV PRN Q4HRS PRN [Pepcid Suspension] 20 IV BID Duoneb 0.5-3(2.5) Mg/3 Ml (Albuterol/Ipratropium) 3 Ml Ampul.neb 3 Ml NEB PRN Q6HRS PRN Novolog (Insulin Aspart) 100 Unit/1 Ml Cartridge 0 SQ Q6HRS Vitals/I & O Vital Sign - Last 24 Hours 02/11/17 02/11/17 02/11/17 02/11/17 10:37 11:00 12:00 15:00 Temp 98.8 100.5 98.8 100.5 Pulse 103 103 99 Resp 18 18 B/P (MAP) 140/77 (98) 140/77 122/66 (84) Pulse Ox 97 92 O2 Delivery Nasal Cannula Room Air Room Air O2 Flow Rate 3.0 02/11/17 02/11/17 02/11/17 02/11/17 17:23 19:00 20:00 23:00 Temp 98.8 98.9 98.8 98.9 Pulse 99 98 100 Resp 21 19 B/P (MAP) 122/66 139/69 (92) 135/96 (109) Pulse Ox 96 96 O2 Delivery Room Air Room Air Room Air 02/12/17 02/12/17 02/12/17 02/12/17 00:00 02:47 06:00 07:00 Temp 99.0 97.5 99.0 97.5 Pulse 100 82 82 89 Resp 20 18 B/P (MAP) 135/96 145/88 (107) 145/88 140/79 (99) Pulse Ox 95 96 O2 Delivery Room Air Room Air Nutrition Consultation Dietary Evaluation: Recommendations by RD: PPN/TPN Comments: REC resume when able TF via J tube: Diabetisource AC @10 ml/hr, increase 10 ml/hr q8 hrs to goal of 50 ml/hr w/100 ml flushes q6 hrs STD TPN at this time per MD Expected Outcomes/Goals: tolerate TF at goal Malnutrition Findings: Food and Nutrition Intake (Mod: <75% est energy req 7days Body Fat Depletion (Non Severe: Mild Depletion Weight Status: Underweight FILIPPO PERALTA MD Feb 12, 2017 10:03
[2017-02-12 11:00] VITALS: BP 134/75
--- NOTE | 2017-02-12 11:53 | PDOC ---
[employer] DEL[employer]PER[employer] 02/12/17 1153: SURGICAL PROGRESS NOTE Subjective no complaints Vital Signs Vital Signs Date Time Temp Pulse Resp B/P (MAP) Pulse Ox O2 Delivery O2 Flow Rate FiO2 02/12/17 11:00 97.9 95 16 134/75 (94) 97 Room Air 97.9 02/11/17 10:37 3.0 I&O Intake and Output 02/13/17 07:00 Intake Total 100 ml Output Total 910 ml Balance -810 ml Tube Feeding 100 ml Output Urine Total 800 ml Drainage Total 110 ml # Voids 2 General: Alert, Cooperative, No acute distress Abdomen: Soft, Other (incision c/d/i, no erythema, sarah serosang) Labs Laboratory Tests Test 02/10/17 17:24 02/11/17 04:15 02/11/17 07:58 02/11/17 10:40 Glucose (Fingerstick) 188 mg/dL (70-99) 262 mg/dL (70-99) White Blood Count 11.3 x10^3/uL (4.0-11.0) Red Blood Count 2.95 x10^6/uL (4.30-5.70) Hemoglobin 8.7 g/dL (13.0-17.5) Hematocrit 25.5 % (39.0-53.0) Mean Corpuscular Volume 86 fL (79-100) Mean Corpuscular Hemoglobin 30 pg (25-35) Mean Corpuscular Hemoglobin Concent 34 g/dL (31-37) Red Cell Distribution Width 14.0 % (11.5-14.5) Platelet Count 177 x10^3/uL (140-400) Neutrophils (%) (Auto) 87 % (31-73) Lymphocytes (%) (Auto) 8 % (24-48) Monocytes (%) (Auto) 5 % (0-9) Eosinophils (%) (Auto) 0 % (0-3) Basophils (%) (Auto) 0 % (0-3) Neutrophils # (Auto) 9.8 x10^3uL (1.8-7.7) Lymphocytes # (Auto) 0.9 x10^3/uL (1.0-4.8) Monocytes # (Auto) 0.5 x10^3/uL (0.0-1.1) Eosinophils # (Auto) 0.0 x10^3/uL (0.0-0.7) Basophils # (Auto) 0.0 x10^3/uL (0.0-0.2) Sodium Level 141 mmol/L (136-145) Potassium Level 4.4 mmol/L (3.5-5.1) Chloride Level 105 mmol/L (98-107) Carbon Dioxide Level 26 mmol/L (21-32) Anion Gap 10 (6-14) Blood Urea Nitrogen 35 mg/dL (8-26) Creatinine 1.3 mg/dL (0.7-1.3) Estimated GFR (Cockcroft-Gault) 52.5 Glucose Level 260 mg/dL (70-99) Calcium Level 8.3 mg/dL (8.5-10.1) Urine Collection Type Unknown Urine Color Yellow Urine Clarity Clear Urine pH 5.0 Urine Specific [place] 1.010 Urine Protein Negative mg/dL (NEG-TRACE) Urine Glucose (UA) 250 mg/dL (NEG) Urine Ketones (Stick) Trace mg/dL (NEG) Urine Blood Small (NEG) Urine Nitrite Negative (NEG) Urine Bilirubin Negative (NEG) Urine Urobilinogen Dipstick 0.2 mg/dL (0.2 mg/dL) Urine Leukocyte Esterase Trace (NEG) Urine RBC 1-2 /HPF (0-2) Urine WBC 5-10 /HPF (0-4) Urine Squamous Epithelial Cells Few /LPF Urine Amorphous Sediment Present /HPF Urine Bacteria Few /HPF (0-FEW) Urine Mucus Mod /LPF Urine Yeast Present /HPF Test 02/11/17 11:32 02/11/17 16:35 02/11/17 19:45 02/11/17 20:40 Glucose (Fingerstick) 207 mg/dL (70-99) 158 mg/dL (70-99) 218 mg/dL (70-99) Lactic Acid Level 1.2 mmol/L (0.4-2.0) Test 02/12/17 03:33 02/12/17 07:45 White Blood Count 12.4 x10^3/uL (4.0-11.0) Red Blood Count 2.81 x10^6/uL (4.30-5.70) Hemoglobin 8.1 g/dL (13.0-17.5) Hematocrit 24.5 % (39.0-53.0) Mean Corpuscular Volume 87 fL (79-100) Mean Corpuscular Hemoglobin 29 pg (25-35) Mean Corpuscular Hemoglobin Concent 33 g/dL (31-37) Red Cell Distribution Width 14.1 % (11.5-14.5) Platelet Count 183 x10^3/uL (140-400) Neutrophils (%) (Auto) 85 % (31-73) Lymphocytes (%) (Auto) 10 % (24-48) Monocytes (%) (Auto) 5 % (0-9) Eosinophils (%) (Auto) 0 % (0-3) Basophils (%) (Auto) 0 % (0-3) Neutrophils # (Auto) 10.5 x10^3uL (1.8-7.7) Lymphocytes # (Auto) 1.3 x10^3/uL (1.0-4.8) Monocytes # (Auto) 0.6 x10^3/uL (0.0-1.1) Eosinophils # (Auto) 0.0 x10^3/uL (0.0-0.7) Basophils # (Auto) 0.0 x10^3/uL (0.0-0.2) Sodium Level 140 mmol/L (136-145) Potassium Level 4.4 mmol/L (3.5-5.1) Chloride Level 105 mmol/L (98-107) Carbon Dioxide Level 27 mmol/L (21-32) Anion Gap 8 (6-14) Blood Urea Nitrogen 38 mg/dL (8-26) Creatinine 1.4 mg/dL (0.7-1.3) Estimated GFR (Cockcroft-Gault) 48.2 Glucose Level 143 mg/dL (70-99) Calcium Level 8.3 mg/dL (8.5-10.1) Glucose (Fingerstick) 312 mg/dL (70-99) Laboratory Tests Test 02/11/17 16:35 02/11/17 19:45 02/11/17 20:40 02/12/17 03:33 Glucose (Fingerstick) 158 mg/dL (70-99) 218 mg/dL (70-99) Lactic Acid Level 1.2 mmol/L (0.4-2.0) White Blood Count 12.4 x10^3/uL (4.0-11.0) Red Blood Count 2.81 x10^6/uL (4.30-5.70) Hemoglobin 8.1 g/dL (13.0-17.5) Hematocrit 24.5 % (39.0-53.0) Mean Corpuscular Volume 87 fL (79-100) Mean Corpuscular Hemoglobin 29 pg (25-35) Mean Corpuscular Hemoglobin Concent 33 g/dL (31-37) Red Cell Distribution Width 14.1 % (11.5-14.5) Platelet Count 183 x10^3/uL (140-400) Neutrophils (%) (Auto) 85 % (31-73) Lymphocytes (%) (Auto) 10 % (24-48) Monocytes (%) (Auto) 5 % (0-9) Eosinophils (%) (Auto) 0 % (0-3) Basophils (%) (Auto) 0 % (0-3) Neutrophils # (Auto) 10.5 x10^3uL (1.8-7.7) Lymphocytes # (Auto) 1.3 x10^3/uL (1.0-4.8) Monocytes # (Auto) 0.6 x10^3/uL (0.0-1.1) Eosinophils # (Auto) 0.0 x10^3/uL (0.0-0.7) Basophils # (Auto) 0.0 x10^3/uL (0.0-0.2) Sodium Level 140 mmol/L (136-145) Potassium Level 4.4 mmol/L (3.5-5.1) Chloride Level 105 mmol/L (98-107) Carbon Dioxide Level 27 mmol/L (21-32) Anion Gap 8 (6-14) Blood Urea Nitrogen 38 mg/dL (8-26) Creatinine 1.4 mg/dL (0.7-1.3) Estimated GFR (Cockcroft-Gault) 48.2 Glucose Level 143 mg/dL (70-99) Calcium Level 8.3 mg/dL (8.5-10.1) Test 02/12/17 07:45 Glucose (Fingerstick) 312 mg/dL (70-99) Assessment/Plan continue tfs Problems: ROSEY LOGAN MD 02/12/17 1452: SURGICAL PROGRESS NOTE Assessment/Plan pt seen more conversive today slow improvement cont supportive care Problems: GABINO MERRILL APRN Feb 12, 2017 11:53 ROSEY LOGAN MD Feb 12, 2017 14:52
--- NOTE | 2017-02-12 12:40 | PDOC ---
Infectious Disease Note Vital Sign Vital Signs Vital Signs Date Time Temp Pulse Resp B/P (MAP) Pulse Ox O2 Delivery O2 Flow Rate FiO2 02/12/17 11:00 97.9 95 16 134/75 (94) 97 Room Air 97.9 02/11/17 10:37 3.0 Labs Lab Laboratory Tests Test 02/11/17 16:35 02/11/17 19:45 02/11/17 20:40 02/12/17 03:33 Glucose (Fingerstick) 158 mg/dL (70-99) 218 mg/dL (70-99) Lactic Acid Level 1.2 mmol/L (0.4-2.0) White Blood Count 12.4 x10^3/uL (4.0-11.0) Red Blood Count 2.81 x10^6/uL (4.30-5.70) Hemoglobin 8.1 g/dL (13.0-17.5) Hematocrit 24.5 % (39.0-53.0) Mean Corpuscular Volume 87 fL (79-100) Mean Corpuscular Hemoglobin 29 pg (25-35) Mean Corpuscular Hemoglobin Concent 33 g/dL (31-37) Red Cell Distribution Width 14.1 % (11.5-14.5) Platelet Count 183 x10^3/uL (140-400) Neutrophils (%) (Auto) 85 % (31-73) Lymphocytes (%) (Auto) 10 % (24-48) Monocytes (%) (Auto) 5 % (0-9) Eosinophils (%) (Auto) 0 % (0-3) Basophils (%) (Auto) 0 % (0-3) Neutrophils # (Auto) 10.5 x10^3uL (1.8-7.7) Lymphocytes # (Auto) 1.3 x10^3/uL (1.0-4.8) Monocytes # (Auto) 0.6 x10^3/uL (0.0-1.1) Eosinophils # (Auto) 0.0 x10^3/uL (0.0-0.7) Basophils # (Auto) 0.0 x10^3/uL (0.0-0.2) Sodium Level 140 mmol/L (136-145) Potassium Level 4.4 mmol/L (3.5-5.1) Chloride Level 105 mmol/L (98-107) Carbon Dioxide Level 27 mmol/L (21-32) Anion Gap 8 (6-14) Blood Urea Nitrogen 38 mg/dL (8-26) Creatinine 1.4 mg/dL (0.7-1.3) Estimated GFR (Cockcroft-Gault) 48.2 Glucose Level 143 mg/dL (70-99) Calcium Level 8.3 mg/dL (8.5-10.1) Test 02/12/17 07:45 02/12/17 11:19 Glucose (Fingerstick) 312 mg/dL (70-99) 245 mg/dL (70-99) Objective Assessment Fever Leukocytosis - hopefully reactive - pre-op steroids 02/07 Yeast in urine DVT RUE s/p PICC removal Gastric outlet obstruction s/p abdominal surgery, Feb 07 Malnutrition Anemia s/p PRBCs 02/08 CKD Plan Plan of Care Vanc and Zosyn initiated by Dr. Schneider Add Fluconazole BC pending f/u am labs D/w family Thank you Attending Co-Sign Attending Co-Sign The patient was seen and interviewed as well as examined at the bedside. The chart was reviewed. The case was discussed. Agree with the plan of care. JEMAL VASQUES APRN Feb 12, 2017 12:40 TIARA SCHNEIDER MD Feb 12, 2017 14:11
[2017-02-12] MEDS: ANTI-COAG MONITOR BY PHARMACY. MC PRN (14:22)
[2017-02-12 15:00] VITALS: BP 137/78
[2017-02-12] MEDS: FLUCONAZOLE 100MG/50ML PREMIX 50 ML IV SCH (15:50)
[2017-02-12] MEDS: MORPHINE SULFATE 2 MG/ML DISP.SYRIN. IV PRN (17:31)
[2017-02-12 19:00] VITALS: BP 134/79
[2017-02-12] MEDS: FAMOTIDINE 20 MG/2 ML VIAL IVP SCH (21:20)
[2017-02-12] MEDS: VANCOMYCIN 1 GM in IV NORMAL SALINE 250ML 250 ML IV SCH (21:44)
--- NOTE | 2017-02-12 22:05 | CONS ---
DATE OF CONSULTATION: 02/11/2017 REQUESTING PHYSICIAN: Dr. Campbell. REASON FOR CONSULTATION: Sepsis screen triggered. HISTORY OF PRESENT ILLNESS: This patient is an 86-year-old male who was admitted on 02/07 for a same day exploratory laparotomy, extensive lysis of adhesions, removal of dystrophic bone formation, abdominal wall mass, removal of old mesh, repair of incisional hernia, antrectomy with Kb-[id number] reconstruction and J-tube placement, performed by Dr. Falcon for a gastric outlet obstruction. He was previously hospitalized last month for worsening difficulty, swallowing and weight loss. He was found to have an esophageal stricture, status post dilatation and ulcer disease. He was discharged to [facility] on TPN as an attempt to improve nutritional status. However, according to his daughter, he continued to loose weight. He slept quite a bit and became more weak. Since surgery, a sepsis screen was triggered. He developed a low-grade temperature of 100.5 yesterday with an elevated heart rate above 90 and an elevated white blood cell count of 11,300 followed by further increased to 12,400 today. In addition, the patient was found to have an extensive DVT of right upper extremity. The PICC line has since been removed. The patient is hard of hearing. He requested a drink of water. He was given a drink and swallowed without problem. He is tolerating tube feedings without any nausea, vomiting or diarrhea. He had a bowel movement earlier today. He is having some abdominal pain that is better in more of a supine position. Denies cough, shortness of air or chest discomfort. Postop, he received a blood transfusion for low hemoglobin of 7.0. PAST MEDICAL HISTORY: As mentioned above, hearing impairment, coronary artery disease, chronic kidney disease, hyperlipidemia, hypertension, diabetes mellitus. PAST SURGICAL HISTORY: As mentioned above, cholecystectomy, appendectomy, repair of perforated ulcer, coronary artery bypass graft. FAMILY HISTORY: Positive for hypertension and diabetes mellitus. SOCIAL HISTORY: The patient has been for the past 64 years. Nonsmoker. He was residing at [facility] prior to this admission. ALLERGIES: No known drug allergies. MEDICATIONS: The patient received a dose of dexamethasone preop on 02/07. Vancomycin started on 02/11, Zosyn started 02/11. PPN. Other medications are available and have been reviewed on the JUN. REVIEW OF SYSTEMS: Per HPI, all other review of systems negative. PHYSICAL EXAMINATION: GENERAL: male, lying in bed, awake, in no apparent distress. VITAL SIGNS: Temperature 97.9, T-max 100.5, blood pressure 135/75, heart rate 95, respiratory rate 16, pulse oximetry is 97% on room air, weight is 131 pounds, BMI is 17. HEENT: Pupils equally round, small, normal conjunctivae. Oral mucosa is dry. Poor dentition. LUNGS: Clear, nonlabored. HEART: Normal S1 and S2. ABDOMEN: Mildly distended. Midline abdominal incision well approximated, healing well. Stormy intact. No redness or drainage noted. SULMA drain with serosanguineous drainage. EXTREMITIES: No gross edema or cyanosis. SKIN: Without rash. NEUROLOGIC: Alert, answers questions appropriately, but is hard of hearing. Follows commands. LABORATORY DATA: Today's WBC 12.4, hemoglobin 8.1, platelet count 183,000. Electrolytes are unremarkable. Creatinine 1.4, BUN 38, glucose 143. Lactic acid 1.2. Recent total bilirubin 0.4, AST 46, ALT 86, albumin 2.7. Urinalysis shows wbc's 5-10, leukocyte esterase trace, few bacteria and yeast present. MRSA screen negative. Blood cultures pending. Chest x-ray unremarkable. IMPRESSION: 1. Fever. 2. Leukocytosis. 3. Yeast in urine. 4. Deep vein thrombosis of right upper extremity, status post peripherally inserted central catheter line removal. 5. Gastric outlet obstruction, status post abdominal surgery on 02/07/2017. 6. Malnutrition. 7. Anemia, status post blood transfusion. 8. Chronic kidney disease. PLAN: Continue the vancomycin and Zosyn, which was initiated by Dr. Bertrand. We will add fluconazole as well. We will follow up on morning laboratory values and cultures. Discussed with the patient's and daughter. Thank you, Dr. Campbell, for asking us to participate in this patient's care. Should you have any further questions or concerns, please call. The patient was seen, examined and plan of care implemented by Dr. Tiara Bertrand. TIARA BERTRAND MD DR: ADAIR/joshua JOB#: [id number] / [id number]
[2017-02-12 23:00] VITALS: BP 131/77
[2017-02-13] MEDS: PIPERACILLIN/TAZOBACTAM 2.25 GM in IV NORMAL SALINE 50ML 50 ML IV SCH ×4 (00:01→18:04)
[2017-02-13] MEDS: METOPROLOL TARTRATE 5 MG/5 ML VIAL. IVP SCH ×4 (00:03→18:04)
[2017-02-13 03:00] VITALS: BP 140/79
[2017-02-13] MEDS: AMINO AC 3%/ELECTROLYTE/GLYCER 1,000 ML IV SCH (05:19)
[2017-02-13 06:17] LABS: BASO % 0 % (0-3); EOS % 1 % (0-3); HEMATOCRIT 24.2 % (39.0-53.0); HEMOGLOBIN 8.3 g/dL (13.0-17.5); LYMPH # 1.2 x10^3/uL (1.0-4.8); LYMPH % 13 % (24-48); MEAN CORPUSCULAR HEMOGLOBIN 30 pg (25-35); MEAN CORPUSCULAR HGB CONC 34 g/dL (31-37); MEAN CORPUSCULAR VOLUME 86 fL (79-100); MONO % 5 % (0-9); NEUT % 81 % (31-73); PLATELET COUNT 189 x10^3/uL (140-400); WHITE BLOOD COUNT 9.4 x10^3/uL (4.0-11.0)
[2017-02-13 06:40] LABS: CALCIUM 7.9 mg/dL (8.5-10.1); CREATININE 1.6 mg/dL (0.7-1.3); GFR 41.3; POTASSIUM 4.2 mmol/L (3.5-5.1)
[2017-02-13 07:00] VITALS: BP 145/84
--- NOTE | 2017-02-13 07:39 | PDOC ---
Infectious Disease Note Subjective Subjective Doing ok Has occ pain across mid abd ROS ROS Very [place] difficult to completely understand GEN: Denies fevers, chills HEENT: sore throat CV: Denies chest pain RESP: Denies shortness of air, cough GI: Denies n/v/d NEURO: Denies confusion, dizziness MSK: Denies weakness, joint pain/swelling Vital Sign Vital Signs Vital Signs Date Time Temp Pulse Resp B/P (MAP) Pulse Ox O2 Delivery O2 Flow Rate FiO2 02/13/17 05:23 91 140/79 02/13/17 03:00 97.7 18 96 Room Air 97.7 Physical Exam PHYSICAL EXAM GENERAL: NAD, Alert HEENT: PERRL, OC/OP - dry NECK: Supple, no JVD, no LN LUNGS: Clear HEART: S1S2, no gallop, no murmur ABD: Soft, SULMA, clean incision. Mid distension, J-tube EXT: No edema, no cyanosis [employer]: Alert, oriented, no focal neurologic deficit, [place] SKIN: No rash IV: ok Labs Lab Laboratory Tests Test 02/12/17 07:45 02/12/17 11:19 02/12/17 16:28 02/12/17 20:58 Glucose (Fingerstick) 312 mg/dL (70-99) 245 mg/dL (70-99) 189 mg/dL (70-99) 174 mg/dL (70-99) Test 02/13/17 03:20 02/13/17 05:20 Sodium Level 138 mmol/L (136-145) Potassium Level 4.2 mmol/L (3.5-5.1) Chloride Level 103 mmol/L (98-107) Carbon Dioxide Level 29 mmol/L (21-32) Anion Gap 6 (6-14) Blood Urea Nitrogen 42 mg/dL (8-26) Creatinine 1.6 mg/dL (0.7-1.3) Estimated GFR (Cockcroft-Gault) 41.3 Glucose Level 329 mg/dL (70-99) Calcium Level 7.9 mg/dL (8.5-10.1) White Blood Count 9.4 x10^3/uL (4.0-11.0) Red Blood Count 2.80 x10^6/uL (4.30-5.70) Hemoglobin 8.3 g/dL (13.0-17.5) Hematocrit 24.2 % (39.0-53.0) Mean Corpuscular Volume 86 fL (79-100) Mean Corpuscular Hemoglobin 30 pg (25-35) Mean Corpuscular Hemoglobin Concent 34 g/dL (31-37) Red Cell Distribution Width 14.0 % (11.5-14.5) Platelet Count 189 x10^3/uL (140-400) Neutrophils (%) (Auto) 81 % (31-73) Lymphocytes (%) (Auto) 13 % (24-48) Monocytes (%) (Auto) 5 % (0-9) Eosinophils (%) (Auto) 1 % (0-3) Basophils (%) (Auto) 0 % (0-3) Neutrophils # (Auto) 7.6 x10^3uL (1.8-7.7) Lymphocytes # (Auto) 1.2 x10^3/uL (1.0-4.8) Monocytes # (Auto) 0.5 x10^3/uL (0.0-1.1) Eosinophils # (Auto) 0.1 x10^3/uL (0.0-0.7) Basophils # (Auto) 0.0 x10^3/uL (0.0-0.2) Objective Assessment Fever Leukocytosis - hopefully reactive - better - pre-op steroids 02/07 Yeast in urine DVT RUE s/p PICC removal 02/09 Gastric outlet obstruction s/p abdominal surgery, Feb 07 Malnutrition Anemia s/p PRBCs 02/08 CKD Plan Plan of Care Vanc and Zosyn initiated 02/11 Added Fluconazole 02/12 BC pending f/u am labs Try to wean abx soon TIARA BERTRAND MD Feb 13, 2017 07:39
[2017-02-13] MEDS: RIVAROXABAN 15 MG TABLET. PO SCH ×2 (08:54→21:56)
[2017-02-13] MEDS: INSULIN ASPART 300 UNITS/3 ML INSULN.PEN SQ SCH ×3 (09:08→18:12)
[2017-02-13] MEDS ORDERED: INSULIN DETEMIR 300 UNITS/3 ML INSULN.PEN. SQ ONE (09:15)
[2017-02-13 10:54] VITALS: BP 104/63
--- NOTE | 2017-02-13 11:01 | PDOC ---
PROGRESS NOTES Chief Complaint Chief Complaint Gastric outlet obstruction s/p extensive abd sx with adhesiolysis, J tube insertion etc 02/07 New DVT Rt arm - 02/09 - PICC in site Hx perforated ulcer DISTANT PAST Frailty, gen weakness FULL code Fevers/SEPSIS (02/11) PMH: DM HTN CAD PUD CABG History of Present Illness History of Present Illness Lookig good today! In the potty for BM NO fevers, WBC better since ID got on board Will go back to [facility] on dc So far full code when Ia sked at bedside Creat 1.,6 stable WBC down to 9 from PLAn: august dc PPN - TF via J tube at goal PPLace maybe in next 24-48 hrs Vitals Vitals Vital Signs Date Time Temp Pulse Resp B/P (MAP) Pulse Ox O2 Delivery O2 Flow Rate FiO2 02/13/17 10:54 97.9 98 18 104/63 (77) 94 Room Air 97.9 Physical Exam General: Alert, Cooperative, No acute distress Heart: Regular rate, Normal S1, Normal S2 Lungs: Clear Abdomen: Soft, Other (incision c/d/i, no erythema, sarah serosang) Extremities: No clubbing, No cyanosis Skin: No rashes, No breakdown Labs LABS Laboratory Tests Test 02/12/17 11:19 02/12/17 16:28 02/12/17 20:58 02/13/17 03:20 Glucose (Fingerstick) 245 mg/dL (70-99) 189 mg/dL (70-99) 174 mg/dL (70-99) Sodium Level 138 mmol/L (136-145) Potassium Level 4.2 mmol/L (3.5-5.1) Chloride Level 103 mmol/L (98-107) Carbon Dioxide Level 29 mmol/L (21-32) Anion Gap 6 (6-14) Blood Urea Nitrogen 42 mg/dL (8-26) Creatinine 1.6 mg/dL (0.7-1.3) Estimated GFR (Cockcroft-Gault) 41.3 Glucose Level 329 mg/dL (70-99) Calcium Level 7.9 mg/dL (8.5-10.1) Test 02/13/17 05:20 02/13/17 07:14 02/13/17 10:14 White Blood Count 9.4 x10^3/uL (4.0-11.0) Red Blood Count 2.80 x10^6/uL (4.30-5.70) Hemoglobin 8.3 g/dL (13.0-17.5) Hematocrit 24.2 % (39.0-53.0) Mean Corpuscular Volume 86 fL (79-100) Mean Corpuscular Hemoglobin 30 pg (25-35) Mean Corpuscular Hemoglobin Concent 34 g/dL (31-37) Red Cell Distribution Width 14.0 % (11.5-14.5) Platelet Count 189 x10^3/uL (140-400) Neutrophils (%) (Auto) 81 % (31-73) Lymphocytes (%) (Auto) 13 % (24-48) Monocytes (%) (Auto) 5 % (0-9) Eosinophils (%) (Auto) 1 % (0-3) Basophils (%) (Auto) 0 % (0-3) Neutrophils # (Auto) 7.6 x10^3uL (1.8-7.7) Lymphocytes # (Auto) 1.2 x10^3/uL (1.0-4.8) Monocytes # (Auto) 0.5 x10^3/uL (0.0-1.1) Eosinophils # (Auto) 0.1 x10^3/uL (0.0-0.7) Basophils # (Auto) 0.0 x10^3/uL (0.0-0.2) Glucose (Fingerstick) 323 mg/dL (70-99) 318 mg/dL (70-99) Review of Systems Review of Systems in the potty, limited rOS, no CP< SOA<emesis, some mild post op soreness Comment Review of Relevant I have reviewed the following items sukhwinder (where applicable) has been applied. Labs Laboratory Tests Test 02/11/17 11:32 02/11/17 16:35 02/11/17 19:45 02/11/17 20:40 Glucose (Fingerstick) 207 mg/dL (70-99) 158 mg/dL (70-99) 218 mg/dL (70-99) Lactic Acid Level 1.2 mmol/L (0.4-2.0) Test 02/12/17 03:33 02/12/17 07:45 02/12/17 11:19 02/12/17 16:28 White Blood Count 12.4 x10^3/uL (4.0-11.0) Red Blood Count 2.81 x10^6/uL (4.30-5.70) Hemoglobin 8.1 g/dL (13.0-17.5) Hematocrit 24.5 % (39.0-53.0) Mean Corpuscular Volume 87 fL (79-100) Mean Corpuscular Hemoglobin 29 pg (25-35) Mean Corpuscular Hemoglobin Concent 33 g/dL (31-37) Red Cell Distribution Width 14.1 % (11.5-14.5) Platelet Count 183 x10^3/uL (140-400) Neutrophils (%) (Auto) 85 % (31-73) Lymphocytes (%) (Auto) 10 % (24-48) Monocytes (%) (Auto) 5 % (0-9) Eosinophils (%) (Auto) 0 % (0-3) Basophils (%) (Auto) 0 % (0-3) Neutrophils # (Auto) 10.5 x10^3uL (1.8-7.7) Lymphocytes # (Auto) 1.3 x10^3/uL (1.0-4.8) Monocytes # (Auto) 0.6 x10^3/uL (0.0-1.1) Eosinophils # (Auto) 0.0 x10^3/uL (0.0-0.7) Basophils # (Auto) 0.0 x10^3/uL (0.0-0.2) Sodium Level 140 mmol/L (136-145) Potassium Level 4.4 mmol/L (3.5-5.1) Chloride Level 105 mmol/L (98-107) Carbon Dioxide Level 27 mmol/L (21-32) Anion Gap 8 (6-14) Blood Urea Nitrogen 38 mg/dL (8-26) Creatinine 1.4 mg/dL (0.7-1.3) Estimated GFR (Cockcroft-Gault) 48.2 Glucose Level 143 mg/dL (70-99) Calcium Level 8.3 mg/dL (8.5-10.1) Glucose (Fingerstick) 312 mg/dL (70-99) 245 mg/dL (70-99) 189 mg/dL (70-99) Test 1015/17 20:58 02/13/17 03:20 02/13/17 05:20 02/13/17 07:14 Glucose (Fingerstick) 174 mg/dL (70-99) 323 mg/dL (70-99) Sodium Level 138 mmol/L (136-145) Potassium Level 4.2 mmol/L (3.5-5.1) Chloride Level 103 mmol/L (98-107) Carbon Dioxide Level 29 mmol/L (21-32) Anion Gap 6 (6-14) Blood Urea Nitrogen 42 mg/dL (8-26) Creatinine 1.6 mg/dL (0.7-1.3) Estimated GFR (Cockcroft-Gault) 41.3 Glucose Level 329 mg/dL (70-99) Calcium Level 7.9 mg/dL (8.5-10.1) White Blood Count 9.4 x10^3/uL (4.0-11.0) Red Blood Count 2.80 x10^6/uL (4.30-5.70) Hemoglobin 8.3 g/dL (13.0-17.5) Hematocrit 24.2 % (39.0-53.0) Mean Corpuscular Volume 86 fL (79-100) Mean Corpuscular Hemoglobin 30 pg (25-35) Mean Corpuscular Hemoglobin Concent 34 g/dL (31-37) Red Cell Distribution Width 14.0 % (11.5-14.5) Platelet Count 189 x10^3/uL (140-400) Neutrophils (%) (Auto) 81 % (31-73) Lymphocytes (%) (Auto) 13 % (24-48) Monocytes (%) (Auto) 5 % (0-9) Eosinophils (%) (Auto) 1 % (0-3) Basophils (%) (Auto) 0 % (0-3) Neutrophils # (Auto) 7.6 x10^3uL (1.8-7.7) Lymphocytes # (Auto) 1.2 x10^3/uL (1.0-4.8) Monocytes # (Auto) 0.5 x10^3/uL (0.0-1.1) Eosinophils # (Auto) 0.1 x10^3/uL (0.0-0.7) Basophils # (Auto) 0.0 x10^3/uL (0.0-0.2) Test 02/13/17 10:14 Glucose (Fingerstick) 318 mg/dL (70-99) Laboratory Tests Test 02/12/17 11:19 02/12/17 16:28 02/12/17 20:58 02/13/17 03:20 Glucose (Fingerstick) 245 mg/dL (70-99) 189 mg/dL (70-99) 174 mg/dL (70-99) Sodium Level 138 mmol/L (136-145) Potassium Level 4.2 mmol/L (3.5-5.1) Chloride Level 103 mmol/L (98-107) Carbon Dioxide Level 29 mmol/L (21-32) Anion Gap 6 (6-14) Blood Urea Nitrogen 42 mg/dL (8-26) Creatinine 1.6 mg/dL (0.7-1.3) Estimated GFR (Cockcroft-Gault) 41.3 Glucose Level 329 mg/dL (70-99) Calcium Level 7.9 mg/dL (8.5-10.1) Test 02/13/17 05:20 02/13/17 07:14 02/13/17 10:14 White Blood Count 9.4 x10^3/uL (4.0-11.0) Red Blood Count 2.80 x10^6/uL (4.30-5.70) Hemoglobin 8.3 g/dL (13.0-17.5) Hematocrit 24.2 % (39.0-53.0) Mean Corpuscular Volume 86 fL (79-100) Mean Corpuscular Hemoglobin 30 pg (25-35) Mean Corpuscular Hemoglobin Concent 34 g/dL (31-37) Red Cell Distribution Width 14.0 % (11.5-14.5) Platelet Count 189 x10^3/uL (140-400) Neutrophils (%) (Auto) 81 % (31-73) Lymphocytes (%) (Auto) 13 % (24-48) Monocytes (%) (Auto) 5 % (0-9) Eosinophils (%) (Auto) 1 % (0-3) Basophils (%) (Auto) 0 % (0-3) Neutrophils # (Auto) 7.6 x10^3uL (1.8-7.7) Lymphocytes # (Auto) 1.2 x10^3/uL (1.0-4.8) Monocytes # (Auto) 0.5 x10^3/uL (0.0-1.1) Eosinophils # (Auto) 0.1 x10^3/uL (0.0-0.7) Basophils # (Auto) 0.0 x10^3/uL (0.0-0.2) Glucose (Fingerstick) 323 mg/dL (70-99) 318 mg/dL (70-99) Microbiology 02/11/17 Blood Culture - Preliminary, Resulted NO GROWTH AFTER 1 DAY Medications Current Medications Ondansetron HCl (Zofran) 4 mg PRN Q6HRS PRN IV NAUSEA/VOMITING; Start at 07:00; Stop 02/08/17 at 06:59; Status DC Fentanyl Citrate (Fentanyl 2ml Vial) 25 mcg PRN Q5MIN PRN IV MILD PAIN Last administered on 02/07/17 14:08; Start 02/07/17 at 07:00; Stop 02/08/17 at 06 :59; Status DC Fentanyl Citrate (Fentanyl 2ml Vial) 50 mcg PRN Q5MIN PRN IV MODERATE PAIN; Start 02/07/17 at 07:00; Stop 02/08/17 at 06:59; Status DC Morphine Sulfate 1 mg PRN Q10MIN PRN IV SEVERE PAIN; Start 02/07/17 at 07:00; Stop 02/08/17 at 06:59; Status DC Ringer's Solution 1,000 ml @ 0 mls/hr Q0M IV Last administered on 02/07/17 13:45; Start 02/07/17 at 07:00; Stop 02/07/17 at 18:59; Status DC Lidocaine HCl (Xylocaine-Mpf 1% Vial) 2 ml PRN 1X PRN ID PRIOR TO IV START; Start 02/07/17 at 07:00; Stop 02/08/17 at 06:59; Status DC Hydromorphone HCl (Dilaudid) 0.5 mg PRN Q10MIN PRN IV SEV PAIN, Second choice; Start 02/07/17 at 07:00; Stop 02/08/17 at 06:59; Status DC Prochlorperazine Edisylate (Compazine) 5 mg PACU PRN PRN IV NAUSEA, MRX1; Start 02/07/17 at 07:00; Stop 02/08/17 at 06:59; Status DC Cefazolin Sodium/ Dextrose 50 ml @ 100 mls/hr 1X PREOP PRN IV PRIOR TO PROCEDURE; Start 02/07/17 at 06:00; Stop 02/07/17 at 18:00; Status DC Cefoxitin Sodium 2 gm/Sodium Chloride 100 ml @ 200 mls/hr 1X ONCE IV ; Start 02/07/17 at 07:00; Stop 02/07/17 at 07:29; Status UNV Cefoxitin Sodium 100 ml @ 200 mls/hr ONCE ONCE IV Last administered on t 08:16; Start 02/07/17 at 07:15; Stop 02/07/17 at 07:44; Status DC Lidocaine HCl (Lidocaine Pf 2% Vial) 5 ml STK-MED ONCE .ROUTE ; Start 02/07/17 at 07:29; Stop 02/07/17 at 07:30; Status DC Etomidate (Amidate) 20 mg STK-MED ONCE IV ; Start 02/07/17 at 07:29; Stop 02/14 at 07:30; Status DC Fentanyl Citrate (Fentanyl 2ml Vial) 100 mcg STK-MED ONCE .ROUTE ; Start at 07:29; Stop 02/07/17 at 07:30; Status DC Rocuronium [place] (Zemuron) 100 mg STK-MED ONCE .ROUTE ; Start 02/07/17 at 07: 29; Stop 02/07/17 at 07:30; Status DC Dexamethasone Sodium Phosphate (Decadron) 20 mg STK-MED ONCE .ROUTE ; Start 02/14 at 08:16; Stop 02/07/17 at 08:17; Status DC Ondansetron HCl (Zofran) 4 mg STK-MED ONCE .ROUTE ; Start 02/07/17 at 08:16; Stop 02/07/17 at 08:17; Status DC Esmolol HCl (Brevibloc) 100 mg STK-MED ONCE IV ; Start 02/07/17 at 08:16; Stop 02/07/17 at 08:17; Status DC Phenylephrine HCl (Cheng-Synephrine Inj) 10 mg STK-MED ONCE .ROUTE ; Start at 08:16; Stop 02/07/17 at 08:17; Status DC Fentanyl Citrate (Fentanyl 2ml Vial) 100 mcg STK-MED ONCE .ROUTE ; Start at 08:17; Stop 02/07/17 at 08:18; Status DC Labetalol HCl (Normodyne) 20 mg STK-MED ONCE .ROUTE ; Start 02/07/17 at 08:50; Stop 02/07/17 at 08:51; Status DC Fentanyl Citrate (Fentanyl 2ml Vial) 100 mcg STK-MED ONCE .ROUTE ; Start at 09:21; Stop 02/07/17 at 09:22; Status DC Rocuronium [place] (Zemuron) 100 mg STK-MED ONCE .ROUTE ; Start 02/07/17 at 09: 30; Stop 02/07/17 at 09:31; Status DC Cellulose 1 each STK-MED ONCE .ROUTE Last administered on 02/07/17 10:57; Start 02/07/17 at 09:57; Stop 02/07/17 at 10:57; Status DC Albumin Human 500 ml @ As Directed STK-MED ONCE IV ; Start 02/07/17 at 11:06; Stop 02/07/17 at 11:07; Status DC Neostigmine Methylsulfate (Bloxiverz) 10 mg STK-MED ONCE .ROUTE ; Start at 11:20; Stop 02/07/17 at 11:21; Status DC Glycopyrrolate (Robinul) 1 mg STK-MED ONCE .ROUTE ; Start 02/07/17 at 11:20; Stop 02/07/17 at 11:21; Status DC Famotidine (Pepcid) 20 mg QHS IVP Last administered on 02/12/17 21:20; Start 02/07/17 at 21:00 Enoxaparin Sodium (Lovenox 30mg Syringe) 30 mg Q24H SQ Last administered on 08:13; Start 02/08/17 at 08:00; Stop 02/09/17 at 10:41; Status DC Sodium Chloride (Normal Saline Flush) 3 ml QSHIFT PRN IV AFTER MEDS AND BLOOD DRAWS; Start 02/07/17 at 12:00 Ringer's Solution 1,000 ml @ 100 mls/hr Q10H IV Last administered on 15:49; Start 02/07/17 at 11:49; Stop 02/12/17 at 09:57; Status DC Naloxone HCl (Narcan) 0.4 mg PRN Q2MIN PRN IV SEE INSTRUCTIONS; Start at 12:00 Sodium Chloride 1,000 ml @ 25 mls/hr Q24H IV Last administered on 02/07/17 11:49; Start 02/07/17 at 11:49; Stop 02/12/17 at 07:53; Status DC Morphine Sulfate 30 ml @ 0 mls/hr CONT PRN PRN IV PROTOCOL Last administered on 02/07/17 15:13; Start 02/07/17 at 12:00; Stop 02/10/17 at 11:04; Status DC Ondansetron HCl (Zofran) 4 mg PRN Q6HRS PRN IV NAUESA, 1ST CHOICE; Start 02/07 at 12:00 Insulin Aspart (NovoLOG VIAL) 100 unit STK-MED ONCE SQ ; Start 02/07/17 at 14: 01; Stop 02/07/17 at 14:02; Status DC Insulin Aspart (NovoLOG VIAL) 3 unit 1X ONCE SQ Last administered on 13:58; Start 02/07/17 at 14:15; Stop 02/07/17 at 14:16; Status DC Pneumococcal Polyvalent Vaccine (Do NOT chart on this placeholder) 1X ONCE MC ; Start 02/07/17 at 16:15; Stop 02/07/17 at 16:16; Status UNV Albuterol/ Ipratropium (Duoneb) 3 ml PRN Q6HRS PRN NEB SHORTNESS OF BREATH; Start 02/08/17 at 09:30; Stop 02/08/17 at 09:35; Status DC Albuterol Sulfate (Ventolin Neb Soln) 2.5 mg PRN Q4HRS PRN NEB SHORTNESS OF BREATH; Start 02/08/17 at 09:30 Insulin Aspart (NovoLOG) 0-9 UNITS TIDWMEALS SQ Last administered on 18:00; Start 02/08/17 at 12:00; Stop 02/10/17 at 18:58; Status DC Dextrose (Dextrose 50%-Water Syringe) 12.5 gm PRN Q15MIN PRN IV SEE COMMENTS; Start 02/08/17 at 09:30; Stop 02/10/17 at 18:58; Status DC Enoxaparin Sodium (Lovenox 40mg Syringe) 40 mg Q24H SQ ; Start 02/10/17 at 08: 00; Stop 02/10/17 at 08:00; Status DC Enoxaparin Sodium (Lovenox 60mg Syringe) 60 mg Q12HR SQ Last administered on 08:49; Start 02/09/17 at 20:00; Stop 02/12/17 at 08:58; Status DC Info 1 each PRN DAILY PRN MC SEE COMMENTS; Start 02/09/17 at 22:30; Status Cancel Morphine Sulfate 2 mg PRN Q2HR PRN IV PAIN Last administered on 02/12/17 17: 31; Start 02/10/17 at 11:00 Amino Acids/ Glycerin/ Electrolytes 1,000 ml @ 80 mls/hr [id number] IV Last administered on 02/13/17 05:19; Start 02/10/17 at 13:45; Stop 02/13/17 at 10 :02; Status DC Metoprolol Tartrate (Lopressor) 5 mg Q6HRS IVP Last administered on 02/13/17 05:23; Start 02/11/17 at 09:00 Diphenhydramine HCl (Benadryl) 25 mg PRN QHS PRN IVP SLEEP Last administered on 02/12/17 21:20; Start 02/11/17 at 08:45 Insulin Aspart (NovoLOG) 0-9 UNITS TIDWMEALS SQ Last administered on 09:08; Start 02/11/17 at 09:30 Dextrose (Dextrose 50%-Water Syringe) 12.5 gm PRN Q15MIN PRN IV SEE COMMENTS; Start 02/11/17 at 09:15 Info (Anti-Coagulation Monitoring By Pharmacy) 1 each PRN DAILY PRN MC SEE COMMENTS Last administered on 02/12/17 14:22; Start 02/11/17 at 14:30 Piperacillin Sod/ Tazobactam Sod (Zosyn Per Pharmacy) 1 each PRN DAILY PRN MC SEE COMMENTS; Start 02/11/17 at 18:15 Vancomycin HCl (Vanco Per Pharmacy) 1 each PRN DAILY PRN MC SEE COMMENTS Last administered on 02/12/17 14:33; Start 02/11/17 at 18:15 Vancomycin HCl 1.5 gm/Sodium Chloride 500 ml @ 250 mls/hr 1X ONCE IV Last administered on 02/11/17 21:23; Start 02/11/17 at 19:00; Stop 02/11/17 at 20 :59; Status DC Piperacillin Sod/ Tazobactam Sod 2.25 gm/Sodium Chloride 50 ml @ 100 mls/hr Q6HRS IV Last administered on 02/13/17 05:20; Start 02/11/17 at 22:00 Vancomycin HCl 1 gm/Sodium Chloride 250 ml @ 250 mls/hr Q24H IV Last administered on 02/12/17 21:44; Start 02/12/17 at 21:00 Vancomycin HCl 1 each 1X ONCE MC ; Start 02/13/17 at 20:30; Stop 02/13/17 at 20:31 Rivaroxaban (Xarelto) 15 mg BID PO Last administered on 02/13/17 08:54; Start 02/12/17 at 09:00 Fluconazole/ Sodium Chloride 50 ml @ 100 mls/hr Q24H IV Last administered on 02/12/17 15:50; Start 02/12/17 at 15:00 Insulin Detemir (Levemir) 10 units ONCE ONCE SQ ; Start 02/13/17 at 09:15; Stop 02/13/17 at 09:17; Status DC Active Scripts Active Reported [Lidocaine] 15 Ml PO Q6HRS PRN [Ondansetron] 4 Mg IV PRN Q4HRS PRN [Pepcid Suspension] 20 IV BID Duoneb 0.5-3(2.5) Mg/3 Ml (Albuterol/Ipratropium) 3 Ml Ampul.neb 3 Ml NEB PRN Q6HRS PRN Novolog (Insulin Aspart) 100 Unit/1 Ml Cartridge 0 SQ Q6HRS Vitals/I & O Vital Sign - Last 24 Hours 02/12/17 02/12/17 02/12/17 02/12/17 11:00 12:57 15:00 17:30 Temp 97.9 99.1 97.9 99.1 Pulse 95 95 93 93 Resp 16 18 B/P (MAP) 134/75 (94) 134/75 137/78 (97) 137/78 Pulse Ox 97 97 O2 Delivery Room Air Room Air 02/12/17 02/12/17 02/12/17 02/12/17 17:31 18:22 19:00 20:00 Temp 97.7 97.7 Pulse 90 Resp 22 B/P (MAP) 134/79 (97) Pulse Ox 97 O2 Delivery Room Air Room Air Room Air Room Air 02/12/17 02/13/17 02/13/17 02/13/17 23:00 00:03 03:00 05:23 Temp 97.5 97.7 97.5 97.7 Pulse 96 96 91 91 Resp 24 18 B/P (MAP) 131/77 (95) 131/77 140/79 (99) 140/79 Pulse Ox 95 96 O2 Delivery Room Air Room Air 02/13/17 02/13/17 02/13/17 07:00 09:59 10:54 Temp 97.5 97.9 97.5 97.9 Pulse 86 98 Resp 16 18 B/P (MAP) 145/84 (104) 104/63 (77) Pulse Ox 97 94 O2 Delivery Room Air Room Air Room Air Nutrition Consultation Dietary Evaluation: Recommendations by RD: PPN/TPN Comments: REC resume when able TF via J tube: Diabetisource AC @10 ml/hr, increase 10 ml/hr q8 hrs to goal of 50 ml/hr w/100 ml flushes q6 hrs STD TPN at this time per MD Expected Outcomes/Goals: tolerate TF at goal Malnutrition Findings: Food and Nutrition Intake (Mod: <75% est energy req 7days Body Fat Depletion (Non Severe: Mild Depletion Weight Status: Underweight FILIPPO PERALTA MD Feb 13, 2017 11:01
--- NOTE | 2017-02-13 11:29 | PDOC ---
SURGICAL PROGRESS NOTE Subjective resting + BM tolerating TF Vital Signs Vital Signs Date Time Temp Pulse Resp B/P (MAP) Pulse Ox O2 Delivery O2 Flow Rate FiO2 02/13/17 11:05 98 104/68 02/13/17 10:54 97.9 18 94 Room Air 97.9 I&O Intake and Output 02/14/17 06:59 # Bowel Movements 1 General: Alert, Cooperative, No acute distress Abdomen: Soft, No tenderness, Other (Mikey serosang) Labs Laboratory Tests Test 02/11/17 11:32 02/11/17 16:35 02/11/17 19:45 02/11/17 20:40 Glucose (Fingerstick) 207 mg/dL (70-99) 158 mg/dL (70-99) 218 mg/dL (70-99) Lactic Acid Level 1.2 mmol/L (0.4-2.0) Test 02/12/17 03:33 02/12/17 07:45 02/12/17 11:19 02/12/17 16:28 White Blood Count 12.4 x10^3/uL (4.0-11.0) Red Blood Count 2.81 x10^6/uL (4.30-5.70) Hemoglobin 8.1 g/dL (13.0-17.5) Hematocrit 24.5 % (39.0-53.0) Mean Corpuscular Volume 87 fL (79-100) Mean Corpuscular Hemoglobin 29 pg (25-35) Mean Corpuscular Hemoglobin Concent 33 g/dL (31-37) Red Cell Distribution Width 14.1 % (11.5-14.5) Platelet Count 183 x10^3/uL (140-400) Neutrophils (%) (Auto) 85 % (31-73) Lymphocytes (%) (Auto) 10 % (24-48) Monocytes (%) (Auto) 5 % (0-9) Eosinophils (%) (Auto) 0 % (0-3) Basophils (%) (Auto) 0 % (0-3) Neutrophils # (Auto) 10.5 x10^3uL (1.8-7.7) Lymphocytes # (Auto) 1.3 x10^3/uL (1.0-4.8) Monocytes # (Auto) 0.6 x10^3/uL (0.0-1.1) Eosinophils # (Auto) 0.0 x10^3/uL (0.0-0.7) Basophils # (Auto) 0.0 x10^3/uL (0.0-0.2) Sodium Level 140 mmol/L (136-145) Potassium Level 4.4 mmol/L (3.5-5.1) Chloride Level 105 mmol/L (98-107) Carbon Dioxide Level 27 mmol/L (21-32) Anion Gap 8 (6-14) Blood Urea Nitrogen 38 mg/dL (8-26) Creatinine 1.4 mg/dL (0.7-1.3) Estimated GFR (Cockcroft-Gault) 48.2 Glucose Level 143 mg/dL (70-99) Calcium Level 8.3 mg/dL (8.5-10.1) Glucose (Fingerstick) 312 mg/dL (70-99) 245 mg/dL (70-99) 189 mg/dL (70-99) Test 02/12/17 20:58 02/13/17 03:20 02/13/17 05:20 02/13/17 07:14 Glucose (Fingerstick) 174 mg/dL (70-99) 323 mg/dL (70-99) Sodium Level 138 mmol/L (136-145) Potassium Level 4.2 mmol/L (3.5-5.1) Chloride Level 103 mmol/L (98-107) Carbon Dioxide Level 29 mmol/L (21-32) Anion Gap 6 (6-14) Blood Urea Nitrogen 42 mg/dL (8-26) Creatinine 1.6 mg/dL (0.7-1.3) Estimated GFR (Cockcroft-Gault) 41.3 Glucose Level 329 mg/dL (70-99) Calcium Level 7.9 mg/dL (8.5-10.1) White Blood Count 9.4 x10^3/uL (4.0-11.0) Red Blood Count 2.80 x10^6/uL (4.30-5.70) Hemoglobin 8.3 g/dL (13.0-17.5) Hematocrit 24.2 % (39.0-53.0) Mean Corpuscular Volume 86 fL (79-100) Mean Corpuscular Hemoglobin 30 pg (25-35) Mean Corpuscular Hemoglobin Concent 34 g/dL (31-37) Red Cell Distribution Width 14.0 % (11.5-14.5) Platelet Count 189 x10^3/uL (140-400) Neutrophils (%) (Auto) 81 % (31-73) Lymphocytes (%) (Auto) 13 % (24-48) Monocytes (%) (Auto) 5 % (0-9) Eosinophils (%) (Auto) 1 % (0-3) Basophils (%) (Auto) 0 % (0-3) Neutrophils # (Auto) 7.6 x10^3uL (1.8-7.7) Lymphocytes # (Auto) 1.2 x10^3/uL (1.0-4.8) Monocytes # (Auto) 0.5 x10^3/uL (0.0-1.1) Eosinophils # (Auto) 0.1 x10^3/uL (0.0-0.7) Basophils # (Auto) 0.0 x10^3/uL (0.0-0.2) Test 02/13/17 10:14 Glucose (Fingerstick) 318 mg/dL (70-99) Laboratory Tests Test 02/12/17 16:28 02/12/17 20:58 02/13/17 03:20 02/13/17 05:20 Glucose (Fingerstick) 189 mg/dL (70-99) 174 mg/dL (70-99) Sodium Level 138 mmol/L (136-145) Potassium Level 4.2 mmol/L (3.5-5.1) Chloride Level 103 mmol/L (98-107) Carbon Dioxide Level 29 mmol/L (21-32) Anion Gap 6 (6-14) Blood Urea Nitrogen 42 mg/dL (8-26) Creatinine 1.6 mg/dL (0.7-1.3) Estimated GFR (Cockcroft-Gault) 41.3 Glucose Level 329 mg/dL (70-99) Calcium Level 7.9 mg/dL (8.5-10.1) White Blood Count 9.4 x10^3/uL (4.0-11.0) Red Blood Count 2.80 x10^6/uL (4.30-5.70) Hemoglobin 8.3 g/dL (13.0-17.5) Hematocrit 24.2 % (39.0-53.0) Mean Corpuscular Volume 86 fL (79-100) Mean Corpuscular Hemoglobin 30 pg (25-35) Mean Corpuscular Hemoglobin Concent 34 g/dL (31-37) Red Cell Distribution Width 14.0 % (11.5-14.5) Platelet Count 189 x10^3/uL (140-400) Neutrophils (%) (Auto) 81 % (31-73) Lymphocytes (%) (Auto) 13 % (24-48) Monocytes (%) (Auto) 5 % (0-9) Eosinophils (%) (Auto) 1 % (0-3) Basophils (%) (Auto) 0 % (0-3) Neutrophils # (Auto) 7.6 x10^3uL (1.8-7.7) Lymphocytes # (Auto) 1.2 x10^3/uL (1.0-4.8) Monocytes # (Auto) 0.5 x10^3/uL (0.0-1.1) Eosinophils # (Auto) 0.1 x10^3/uL (0.0-0.7) Basophils # (Auto) 0.0 x10^3/uL (0.0-0.2) Test 02/13/17 07:14 02/13/17 10:14 Glucose (Fingerstick) 323 mg/dL (70-99) 318 mg/dL (70-99) Assessment/Plan continue TFs Problems: GABINO MERRILL APRN Feb 13, 2017 11:29
[2017-02-13 15:00] VITALS: BP 122/68
[2017-02-13] MEDS: FLUCONAZOLE 100MG/50ML PREMIX 50 ML IV SCH (15:00)
--- NOTE | 2017-02-13 15:42 | PATHOLOGY ---
PATHOLOGY REPORT * * * * * * * * FINAL DIAGNOSIS: A. Segment of gastric body and gastric antrum, distal gastrectomy: - Marked narrowing of gastric outlet with hypertrophy of muscular wall of distal stomach. - Superficial edema and mild chronic and focal acute inflammation of gastric mucosa. - Serosal fibrosis and adhesions. - Reactive changes of perigastric lymph node. B. Segment of fibromembranous and fibroadipose tissue, abdominal wall mass: - Mesh with associated scarring and focal chronic inflammation and foreign body giant cell reaction. C. Segments of bone with attached fibrocartilaginous and fibroadipose tissue, designated "dystrophic bone": - Focal scarring and foreign body granulomatous reaction. Comment: There is no evidence of malignancy.(JPM:natalee; 02/13/2017) REPORT ELECTRONICALLY SIGNED BY: Aubrey Alonso M.D. DATE/TIME: 02/13/2017 15:41 * * * * * * * * GROSS PATHOLOGY: A. Received fresh for intraoperative frozen section consultation, designated, "Ibanez - distal gastrectomy." The specimen consists of the distal stomach with attached lesser curvature and greater curvature fat. The segment is stapled closed at both ends. The proximal stapled margin measures 9.0 cm in length. The distal stapled margin is marked by a suture and measures approximately 4.0 cm in length. The gastric serosa is pinkish torres to pinkish mckeon and slightly erythematous. The anterior serosa shows focal adhesions. The segment is opened along the greater curvature. The distal stapled resection margin is removed. The distal outlet is narrowed. There is preservation of the gastric rugae of the proximal portion of the gastrectomy. The antral mucosa has a pale pink-torres to pink-mckeon finely granular appearance. There are no distinct ulcers or masses identified. The mucosa boarding the distal stapled margin is focally hemorrhagic and disrupted. The distal margin is removed and submitted for frozen section. The tissue remaining from frozen section is submitted for permanent sections as A1. The remainder of the specimen is fixed in formalin prior to additional sectioning. (JPM:mml; 02/07/2017) Sectioning the perigastric fat reveals no enlarged lymph nodes, masses, or lesions. Forming Fixer sections are submitted. A1FS frozen section residue A2-A3 proximal margin A4 transmural sections posterior gastric wall A5 transmural sections anterior gastric wall A6 transmural section lesser curvature A7-A8 perigastric fat for possible microscopic lymph nodes (OLY; 02/08/2017) B. The specimen is received in formalin, labeled "Claudio Ibanez and abdominal wall mass" and consists of a glistening yellow orange and mckeon fragment of fibroadipose tissue measuring 13.2 x 8.0 x 4.4 cm. There are strands of sutures protruding from several surfaces. Sectioning reveals an underlying 10.0 x 6.2 cm cavity. The wall of the cavity is composed of thick dense membranous tissue while the lining is composed of synthetic mesh material. No additional lesions or masses are identified. Forming Fixer sections are submitted as B1. C. The specimen is received in formalin, labeled "Claudio Ibanez, dystrophic bone" and consists of three irregularly-shaped fragments of probable osseous tissue each of which is surfaced by thick ragged fibrous tissue and probable mesh material. Two of the fragments average 3.5 x 3.1 x 2.1 cm and the third measures 7.0 x 2.9 x 2.1 cm. Sectioning each reveals the mesh to average 0.3 cm thick. The cut surfaces appear grossly calcified. Forming Fixer sections are submitted as C1 following decalcification.- (COX MONETT; 02/08/2017) FROZEN SECTION DIAGNOSIS: (Aubrey Alonso MD) A1FS. Distal gastrectomy: - Distal margin negative for tumor. The results are reported to Dr. Falcon in the operating room. (JPM:mml; 02/07/2017) Testing performed by [facility] [place] [address] INITIAL CPT CODE(S): A; 42901, 98568 B; 35609 C; 55539, 88645 Professional services performed by [facility] [place] [address] Technical services performed by [facility] at [address] [place] [address], [address] [address]. SPECIMEN(S) RECEIVED: A.Stomach B.Abdominal wall mass C.Dystrophic bone CLINICAL HISTORY: Gastric outlet obstruction PATIENT: CLAUDIO IBANEZ /AGE: 12 1930 (Age: 86) PATIENT #: [id number] ALT CASE #: SPECIMEN COLLECTION DATE: 02/07/2017 SPECIMEN RECEIVED DATE: 02/07/2017 [facility] - [address] [place] [id number] - PHONE: [phone] * * * END OF REPORT * * *
[2017-02-13] MEDS: ANTI-COAG MONITOR BY PHARMACY. MC PRN (16:22)
[2017-02-13] MEDS: VANCOMYCIN PER PHARMACY MC PRN ×2 (16:24→21:02)
--- NOTE | 2017-02-13 17:46 | PDOC2 ---
PALLIATIVE CARE Palliative Care Note Palliative Care Consult requested by Dr. Campbell to address code status Information obtained from medical record and . Recently Admitted with gastric outlet obstruction Diagnosis; 02/07 Post-op Antrectomy/vagotomy with Kb en Y reconstruction; right upper extremity DVT; EF 40%; deconditioning. DM2 Patient sleeping soundly when seen at 1145; Did not participate in conversation. Spoke with . They have never had any conversation about what he would want done if his heart stopped or he stopped breathing. stated she would like to have her daughter here for more conversation. Daughter can not take off work. Checked with nurse again at 1700. No family. Nurse will page if any family arrives. Code Status: Full Code. Discharge Plan: Will need more SNU and likely return to [facility] Will attempt to reach daughter by phone tomorrow ENEIDA TRIPP Feb 13, 2017 17:46
[2017-02-13 19:00] VITALS: BP 106/63
[2017-02-13] MEDS: FAMOTIDINE 20 MG/2 ML VIAL IVP SCH (21:53)
[2017-02-13] MEDS: VANCOMYCIN 1 GM in IV NORMAL SALINE 250ML 250 ML IV SCH (21:53)
[2017-02-13 23:36] VITALS: BP 122/67
[2017-02-14] MEDS: PIPERACILLIN/TAZOBACTAM 2.25 GM in IV NORMAL SALINE 50ML 50 ML IV SCH ×2 (00:01→05:40)
[2017-02-14 03:00] VITALS: BP 112/65
[2017-02-14 05:19] LABS: BASO # 0.1 x10^3/uL (0.0-0.2); BASO % 1 % (0-3); EOS % 2 % (0-3); HEMATOCRIT 25.8 % (39.0-53.0); HEMOGLOBIN 8.5 g/dL (13.0-17.5); LYMPH # 1.2 x10^3/uL (1.0-4.8); LYMPH % 13 % (24-48); MEAN CORPUSCULAR HEMOGLOBIN 29 pg (25-35); MEAN CORPUSCULAR HGB CONC 33 g/dL (31-37); MEAN CORPUSCULAR VOLUME 88 fL (79-100); MONO % 5 % (0-9); NEUT % 79 % (31-73); PLATELET COUNT 178 x10^3/uL (140-400); RED BLOOD COUNT 2.94 x10^6/uL (4.30-5.70); RED CELL DISTRIBUTION WIDTH 14.3 % (11.5-14.5); WHITE BLOOD COUNT 8.7 x10^3/uL (4.0-11.0)
[2017-02-14] MEDS: METOPROLOL TARTRATE 5 MG/5 ML VIAL. IVP SCH ×4 (05:49→17:54)
[2017-02-14 05:51] LABS: CREATININE 1.5 mg/dL (0.7-1.3); GFR 44.5; POTASSIUM 3.6 mmol/L (3.5-5.1)
[2017-02-14 07:00] VITALS: BP 115/72
[2017-02-14] MEDS: RIVAROXABAN 15 MG TABLET. PO SCH (07:37)
--- NOTE | 2017-02-14 09:16 | PDOC ---
Infectious Disease Note Subjective Subjective Doing ok Has occ pain across mid abd ROS ROS Very [place] difficult to completely understand but appears comfortable GEN: Denies fevers, chills HEENT: sore throat CV: Denies chest pain RESP: Denies shortness of air, cough GI: Denies n/v/d NEURO: Denies confusion, dizziness MSK: Denies weakness, joint pain/swelling Vital Sign Vital Signs Vital Signs Date Time Temp Pulse Resp B/P (MAP) Pulse Ox O2 Delivery O2 Flow Rate FiO2 02/14/17 07:22 97 Room Air 02/14/17 07:00 98.3 77 18 115/72 (86) 98.3 Physical Exam PHYSICAL EXAM GENERAL: NAD, Alert, in bed HEENT: PERRL, OC/OP - dry NECK: Supple, no JVD, no LN LUNGS: Clear HEART: S1S2, no gallop, no murmur ABD: Soft, SULMA, clean incision. Mid distension, J-tube EXT: No edema, no cyanosis [employer]ACH[employer]ATOR: Alert, oriented, no focal neurologic deficit, [place] SKIN: No rash IV: ok Labs Lab Laboratory Tests Test 02/13/17 10:14 02/13/17 16:10 02/13/17 20:32 02/13/17 20:59 Glucose (Fingerstick) 318 mg/dL (70-99) 206 mg/dL (70-99) 126 mg/dL (70-99) Vancomycin Level Trough 16.0 mcg/mL (10.0-20.0) Vancomycin Last Dose Date 02/12/17 Vancomycin Last Dose Time 2100 Test 02/14/17 04:45 02/14/17 07:19 White Blood Count 8.7 x10^3/uL (4.0-11.0) Red Blood Count 2.94 x10^6/uL (4.30-5.70) Hemoglobin 8.5 g/dL (13.0-17.5) Hematocrit 25.8 % (39.0-53.0) Mean Corpuscular Volume 88 fL (79-100) Mean Corpuscular Hemoglobin 29 pg (25-35) Mean Corpuscular Hemoglobin Concent 33 g/dL (31-37) Red Cell Distribution Width 14.3 % (11.5-14.5) Platelet Count 178 x10^3/uL (140-400) Neutrophils (%) (Auto) 79 % (31-73) Lymphocytes (%) (Auto) 13 % (24-48) Monocytes (%) (Auto) 5 % (0-9) Eosinophils (%) (Auto) 2 % (0-3) Basophils (%) (Auto) 1 % (0-3) Neutrophils # (Auto) 6.9 x10^3uL (1.8-7.7) Lymphocytes # (Auto) 1.2 x10^3/uL (1.0-4.8) Monocytes # (Auto) 0.5 x10^3/uL (0.0-1.1) Eosinophils # (Auto) 0.1 x10^3/uL (0.0-0.7) Basophils # (Auto) 0.1 x10^3/uL (0.0-0.2) Sodium Level 142 mmol/L (136-145) Potassium Level 3.6 mmol/L (3.5-5.1) Chloride Level 105 mmol/L (98-107) Carbon Dioxide Level 28 mmol/L (21-32) Anion Gap 9 (6-14) Blood Urea Nitrogen 41 mg/dL (8-26) Creatinine 1.5 mg/dL (0.7-1.3) Estimated GFR (Cockcroft-Gault) 44.5 Glucose Level 188 mg/dL (70-99) Calcium Level 8.0 mg/dL (8.5-10.1) Glucose (Fingerstick) 219 mg/dL (70-99) Objective Assessment Fever - better Leukocytosis - hopefully reactive - better - pre-op steroids 02/07 Yeast in urine DVT RUE s/p PICC removal 02/09 Gastric outlet obstruction s/p abdominal surgery, Feb 07 Malnutrition Anemia s/p PRBCs 02/08 CKD Plan Plan of Care D/c Vanc and Zosyn initiated 02/11. Begin augmentin via tube, on tube feeds Added Fluconazole IV 02/12 wean soon BC pending f/u am labs TIARA BERTRAND MD Feb 14, 2017 09:16
[2017-02-14] MEDS ORDERED: AMOXICILLIN/CLAV 400MG/57MG 5 ML ORAL.SUSP. PEG SCH (09:30)
[2017-02-14] MEDS: AMOXICILLIN/CLAV 400MG/57MG 5 ML ORAL.SUSP. PEG SCH ×2 (10:05→21:53)
[2017-02-14] MEDS: INSULIN ASPART 300 UNITS/3 ML INSULN.PEN SQ SCH ×3 (10:20→18:02)
[2017-02-14 11:00] VITALS: BP 114/70
--- NOTE | 2017-02-14 11:50 | PDOC ---
SURGICAL PROGRESS NOTE Subjective Pt without c/o, passing stools, interested in drinking water Vital Signs Vital Signs Date Time Temp Pulse Resp B/P (MAP) Pulse Ox O2 Delivery O2 Flow Rate FiO2 02/14/17 07:22 97 Room Air 02/14/17 07:00 98.3 77 18 115/72 (86) 98.3 General: Alert, Oriented X3, Cooperative, No acute distress Abdomen: Soft, No tenderness, Other (dressing c/d/i, SULMA min serosang) Labs Laboratory Tests Test 02/12/17 16:28 02/12/17 20:58 02/13/17 03:20 02/13/17 05:20 Glucose (Fingerstick) 189 mg/dL (70-99) 174 mg/dL (70-99) Sodium Level 138 mmol/L (136-145) Potassium Level 4.2 mmol/L (3.5-5.1) Chloride Level 103 mmol/L (98-107) Carbon Dioxide Level 29 mmol/L (21-32) Anion Gap 6 (6-14) Blood Urea Nitrogen 42 mg/dL (8-26) Creatinine 1.6 mg/dL (0.7-1.3) Estimated GFR (Cockcroft-Gault) 41.3 Glucose Level 329 mg/dL (70-99) Calcium Level 7.9 mg/dL (8.5-10.1) White Blood Count 9.4 x10^3/uL (4.0-11.0) Red Blood Count 2.80 x10^6/uL (4.30-5.70) Hemoglobin 8.3 g/dL (13.0-17.5) Hematocrit 24.2 % (39.0-53.0) Mean Corpuscular Volume 86 fL (79-100) Mean Corpuscular Hemoglobin 30 pg (25-35) Mean Corpuscular Hemoglobin Concent 34 g/dL (31-37) Red Cell Distribution Width 14.0 % (11.5-14.5) Platelet Count 189 x10^3/uL (140-400) Neutrophils (%) (Auto) 81 % (31-73) Lymphocytes (%) (Auto) 13 % (24-48) Monocytes (%) (Auto) 5 % (0-9) Eosinophils (%) (Auto) 1 % (0-3) Basophils (%) (Auto) 0 % (0-3) Neutrophils # (Auto) 7.6 x10^3uL (1.8-7.7) Lymphocytes # (Auto) 1.2 x10^3/uL (1.0-4.8) Monocytes # (Auto) 0.5 x10^3/uL (0.0-1.1) Eosinophils # (Auto) 0.1 x10^3/uL (0.0-0.7) Basophils # (Auto) 0.0 x10^3/uL (0.0-0.2) Test 02/13/17 07:14 02/13/17 10:14 02/13/17 16:10 02/13/17 20:32 Glucose (Fingerstick) 323 mg/dL (70-99) 318 mg/dL (70-99) 206 mg/dL (70-99) Vancomycin Level Trough 16.0 mcg/mL (10.0-20.0) Vancomycin Last Dose Date 02/12/17 Vancomycin Last Dose Time 2100 Test 02/13/17 20:59 02/14/17 04:45 02/14/17 07:19 Glucose (Fingerstick) 126 mg/dL (70-99) 219 mg/dL (70-99) White Blood Count 8.7 x10^3/uL (4.0-11.0) Red Blood Count 2.94 x10^6/uL (4.30-5.70) Hemoglobin 8.5 g/dL (13.0-17.5) Hematocrit 25.8 % (39.0-53.0) Mean Corpuscular Volume 88 fL (79-100) Mean Corpuscular Hemoglobin 29 pg (25-35) Mean Corpuscular Hemoglobin Concent 33 g/dL (31-37) Red Cell Distribution Width 14.3 % (11.5-14.5) Platelet Count 178 x10^3/uL (140-400) Neutrophils (%) (Auto) 79 % (31-73) Lymphocytes (%) (Auto) 13 % (24-48) Monocytes (%) (Auto) 5 % (0-9) Eosinophils (%) (Auto) 2 % (0-3) Basophils (%) (Auto) 1 % (0-3) Neutrophils # (Auto) 6.9 x10^3uL (1.8-7.7) Lymphocytes # (Auto) 1.2 x10^3/uL (1.0-4.8) Monocytes # (Auto) 0.5 x10^3/uL (0.0-1.1) Eosinophils # (Auto) 0.1 x10^3/uL (0.0-0.7) Basophils # (Auto) 0.1 x10^3/uL (0.0-0.2) Sodium Level 142 mmol/L (136-145) Potassium Level 3.6 mmol/L (3.5-5.1) Chloride Level 105 mmol/L (98-107) Carbon Dioxide Level 28 mmol/L (21-32) Anion Gap 9 (6-14) Blood Urea Nitrogen 41 mg/dL (8-26) Creatinine 1.5 mg/dL (0.7-1.3) Estimated GFR (Cockcroft-Gault) 44.5 Glucose Level 188 mg/dL (70-99) Calcium Level 8.0 mg/dL (8.5-10.1) Laboratory Tests Test 02/13/17 16:10 02/13/17 20:32 02/13/17 20:59 02/14/17 04:45 Glucose (Fingerstick) 206 mg/dL (70-99) 126 mg/dL (70-99) Vancomycin Level Trough 16.0 mcg/mL (10.0-20.0) Vancomycin Last Dose Date 02/12/17 Vancomycin Last Dose Time 2100 White Blood Count 8.7 x10^3/uL (4.0-11.0) Red Blood Count 2.94 x10^6/uL (4.30-5.70) Hemoglobin 8.5 g/dL (13.0-17.5) Hematocrit 25.8 % (39.0-53.0) Mean Corpuscular Volume 88 fL (79-100) Mean Corpuscular Hemoglobin 29 pg (25-35) Mean Corpuscular Hemoglobin Concent 33 g/dL (31-37) Red Cell Distribution Width 14.3 % (11.5-14.5) Platelet Count 178 x10^3/uL (140-400) Neutrophils (%) (Auto) 79 % (31-73) Lymphocytes (%) (Auto) 13 % (24-48) Monocytes (%) (Auto) 5 % (0-9) Eosinophils (%) (Auto) 2 % (0-3) Basophils (%) (Auto) 1 % (0-3) Neutrophils # (Auto) 6.9 x10^3uL (1.8-7.7) Lymphocytes # (Auto) 1.2 x10^3/uL (1.0-4.8) Monocytes # (Auto) 0.5 x10^3/uL (0.0-1.1) Eosinophils # (Auto) 0.1 x10^3/uL (0.0-0.7) Basophils # (Auto) 0.1 x10^3/uL (0.0-0.2) Sodium Level 142 mmol/L (136-145) Potassium Level 3.6 mmol/L (3.5-5.1) Chloride Level 105 mmol/L (98-107) Carbon Dioxide Level 28 mmol/L (21-32) Anion Gap 9 (6-14) Blood Urea Nitrogen 41 mg/dL (8-26) Creatinine 1.5 mg/dL (0.7-1.3) Estimated GFR (Cockcroft-Gault) 44.5 Glucose Level 188 mg/dL (70-99) Calcium Level 8.0 mg/dL (8.5-10.1) Test 02/14/17 07:19 Glucose (Fingerstick) 219 mg/dL (70-99) Assessment/Plan s/p antrectomy doing well will check speech eval and then ADAT plan transfer to tomorrow Problems: JACK STYLES MD Feb 14, 2017 11:50
--- NOTE | 2017-02-14 12:03 | PDOC ---
PROGRESS NOTES Chief Complaint Chief Complaint Gastric outlet obstruction s/p extensive abd sx with adhesiolysis, J tube insertion, antrectomy etc 02/07 New DVT Rt arm - 02/09 - PICC in site Hx perforated ulcer DISTANT PAST Frailty, gen weakness FULL code Fevers/SEPSIS (02/11) PMH: DM HTN CAD PUD CABG History of Present Illness History of Present Illness Looking good, stooling fine wants [employer] - pt feels thristy GEtting nutrition via J tube LYtes ok PLAN: Agree with [employer] today TArget PPlace silvina Vitals Vitals Vital Signs Date Time Temp Pulse Resp B/P (MAP) Pulse Ox O2 Delivery O2 Flow Rate FiO2 02/14/17 07:22 97 Room Air 02/14/17 07:00 98.3 77 18 115/72 (86) 98.3 Physical Exam General: Alert, Oriented X3, Cooperative, No acute distress Heart: Regular rate, Normal S1, Normal S2 Lungs: Clear Abdomen: Soft, No tenderness, Other (dressing c/d/i, SULMA min serosang) Extremities: No clubbing, No cyanosis Skin: No rashes, No breakdown Labs LABS Laboratory Tests Test 02/13/17 16:10 02/13/17 20:32 02/13/17 20:59 02/14/17 04:45 Glucose (Fingerstick) 206 mg/dL (70-99) 126 mg/dL (70-99) Vancomycin Level Trough 16.0 mcg/mL (10.0-20.0) Vancomycin Last Dose Date 02/12/17 Vancomycin Last Dose Time 2100 White Blood Count 8.7 x10^3/uL (4.0-11.0) Red Blood Count 2.94 x10^6/uL (4.30-5.70) Hemoglobin 8.5 g/dL (13.0-17.5) Hematocrit 25.8 % (39.0-53.0) Mean Corpuscular Volume 88 fL (79-100) Mean Corpuscular Hemoglobin 29 pg (25-35) Mean Corpuscular Hemoglobin Concent 33 g/dL (31-37) Red Cell Distribution Width 14.3 % (11.5-14.5) Platelet Count 178 x10^3/uL (140-400) Neutrophils (%) (Auto) 79 % (31-73) Lymphocytes (%) (Auto) 13 % (24-48) Monocytes (%) (Auto) 5 % (0-9) Eosinophils (%) (Auto) 2 % (0-3) Basophils (%) (Auto) 1 % (0-3) Neutrophils # (Auto) 6.9 x10^3uL (1.8-7.7) Lymphocytes # (Auto) 1.2 x10^3/uL (1.0-4.8) Monocytes # (Auto) 0.5 x10^3/uL (0.0-1.1) Eosinophils # (Auto) 0.1 x10^3/uL (0.0-0.7) Basophils # (Auto) 0.1 x10^3/uL (0.0-0.2) Sodium Level 142 mmol/L (136-145) Potassium Level 3.6 mmol/L (3.5-5.1) Chloride Level 105 mmol/L (98-107) Carbon Dioxide Level 28 mmol/L (21-32) Anion Gap 9 (6-14) Blood Urea Nitrogen 41 mg/dL (8-26) Creatinine 1.5 mg/dL (0.7-1.3) Estimated GFR (Cockcroft-Gault) 44.5 Glucose Level 188 mg/dL (70-99) Calcium Level 8.0 mg/dL (8.5-10.1) Test 02/14/17 07:19 Glucose (Fingerstick) 219 mg/dL (70-99) Review of Systems Review of Systems denies 14 pt reviewed Comment Review of Relevant I have reviewed the following items sukhwinder (where applicable) has been applied. Labs Laboratory Tests Test 02/12/17 16:28 02/12/17 20:58 02/13/17 03:20 02/13/17 05:20 Glucose (Fingerstick) 189 mg/dL (70-99) 174 mg/dL (70-99) Sodium Level 138 mmol/L (136-145) Potassium Level 4.2 mmol/L (3.5-5.1) Chloride Level 103 mmol/L (98-107) Carbon Dioxide Level 29 mmol/L (21-32) Anion Gap 6 (6-14) Blood Urea Nitrogen 42 mg/dL (8-26) Creatinine 1.6 mg/dL (0.7-1.3) Estimated GFR (Cockcroft-Gault) 41.3 Glucose Level 329 mg/dL (70-99) Calcium Level 7.9 mg/dL (8.5-10.1) White Blood Count 9.4 x10^3/uL (4.0-11.0) Red Blood Count 2.80 x10^6/uL (4.30-5.70) Hemoglobin 8.3 g/dL (13.0-17.5) Hematocrit 24.2 % (39.0-53.0) Mean Corpuscular Volume 86 fL (79-100) Mean Corpuscular Hemoglobin 30 pg (25-35) Mean Corpuscular Hemoglobin Concent 34 g/dL (31-37) Red Cell Distribution Width 14.0 % (11.5-14.5) Platelet Count 189 x10^3/uL (140-400) Neutrophils (%) (Auto) 81 % (31-73) Lymphocytes (%) (Auto) 13 % (24-48) Monocytes (%) (Auto) 5 % (0-9) Eosinophils (%) (Auto) 1 % (0-3) Basophils (%) (Auto) 0 % (0-3) Neutrophils # (Auto) 7.6 x10^3uL (1.8-7.7) Lymphocytes # (Auto) 1.2 x10^3/uL (1.0-4.8) Monocytes # (Auto) 0.5 x10^3/uL (0.0-1.1) Eosinophils # (Auto) 0.1 x10^3/uL (0.0-0.7) Basophils # (Auto) 0.0 x10^3/uL (0.0-0.2) Test 02/13/17 07:14 02/13/17 10:14 02/13/17 16:10 02/13/17 20:32 Glucose (Fingerstick) 323 mg/dL (70-99) 318 mg/dL (70-99) 206 mg/dL (70-99) Vancomycin Level Trough 16.0 mcg/mL (10.0-20.0) Vancomycin Last Dose Date 02/12/17 Vancomycin Last Dose Time 2100 Test 02/13/17 20:59 02/14/17 04:45 02/14/17 07:19 Glucose (Fingerstick) 126 mg/dL (70-99) 219 mg/dL (70-99) White Blood Count 8.7 x10^3/uL (4.0-11.0) Red Blood Count 2.94 x10^6/uL (4.30-5.70) Hemoglobin 8.5 g/dL (13.0-17.5) Hematocrit 25.8 % (39.0-53.0) Mean Corpuscular Volume 88 fL (79-100) Mean Corpuscular Hemoglobin 29 pg (25-35) Mean Corpuscular Hemoglobin Concent 33 g/dL (31-37) Red Cell Distribution Width 14.3 % (11.5-14.5) Platelet Count 178 x10^3/uL (140-400) Neutrophils (%) (Auto) 79 % (31-73) Lymphocytes (%) (Auto) 13 % (24-48) Monocytes (%) (Auto) 5 % (0-9) Eosinophils (%) (Auto) 2 % (0-3) Basophils (%) (Auto) 1 % (0-3) Neutrophils # (Auto) 6.9 x10^3uL (1.8-7.7) Lymphocytes # (Auto) 1.2 x10^3/uL (1.0-4.8) Monocytes # (Auto) 0.5 x10^3/uL (0.0-1.1) Eosinophils # (Auto) 0.1 x10^3/uL (0.0-0.7) Basophils # (Auto) 0.1 x10^3/uL (0.0-0.2) Sodium Level 142 mmol/L (136-145) Potassium Level 3.6 mmol/L (3.5-5.1) Chloride Level 105 mmol/L (98-107) Carbon Dioxide Level 28 mmol/L (21-32) Anion Gap 9 (6-14) Blood Urea Nitrogen 41 mg/dL (8-26) Creatinine 1.5 mg/dL (0.7-1.3) Estimated GFR (Cockcroft-Gault) 44.5 Glucose Level 188 mg/dL (70-99) Calcium Level 8.0 mg/dL (8.5-10.1) Laboratory Tests Test 02/13/17 16:10 02/13/17 20:32 02/13/17 20:59 02/14/17 04:45 Glucose (Fingerstick) 206 mg/dL (70-99) 126 mg/dL (70-99) Vancomycin Level Trough 16.0 mcg/mL (10.0-20.0) Vancomycin Last Dose Date 02/12/17 Vancomycin Last Dose Time 2100 White Blood Count 8.7 x10^3/uL (4.0-11.0) Red Blood Count 2.94 x10^6/uL (4.30-5.70) Hemoglobin 8.5 g/dL (13.0-17.5) Hematocrit 25.8 % (39.0-53.0) Mean Corpuscular Volume 88 fL (79-100) Mean Corpuscular Hemoglobin 29 pg (25-35) Mean Corpuscular Hemoglobin Concent 33 g/dL (31-37) Red Cell Distribution Width 14.3 % (11.5-14.5) Platelet Count 178 x10^3/uL (140-400) Neutrophils (%) (Auto) 79 % (31-73) Lymphocytes (%) (Auto) 13 % (24-48) Monocytes (%) (Auto) 5 % (0-9) Eosinophils (%) (Auto) 2 % (0-3) Basophils (%) (Auto) 1 % (0-3) Neutrophils # (Auto) 6.9 x10^3uL (1.8-7.7) Lymphocytes # (Auto) 1.2 x10^3/uL (1.0-4.8) Monocytes # (Auto) 0.5 x10^3/uL (0.0-1.1) Eosinophils # (Auto) 0.1 x10^3/uL (0.0-0.7) Basophils # (Auto) 0.1 x10^3/uL (0.0-0.2) Sodium Level 142 mmol/L (136-145) Potassium Level 3.6 mmol/L (3.5-5.1) Chloride Level 105 mmol/L (98-107) Carbon Dioxide Level 28 mmol/L (21-32) Anion Gap 9 (6-14) Blood Urea Nitrogen 41 mg/dL (8-26) Creatinine 1.5 mg/dL (0.7-1.3) Estimated GFR (Cockcroft-Gault) 44.5 Glucose Level 188 mg/dL (70-99) Calcium Level 8.0 mg/dL (8.5-10.1) Test 02/14/17 07:19 Glucose (Fingerstick) 219 mg/dL (70-99) Microbiology 02/11/17 Blood Culture - Preliminary, Resulted NO GROWTH AFTER 2 DAYS Medications Current Medications Ondansetron HCl (Zofran) 4 mg PRN Q6HRS PRN IV NAUSEA/VOMITING; Start at 07:00; Stop 02/08/17 at 06:59; Status DC Fentanyl Citrate (Fentanyl 2ml Vial) 25 mcg PRN Q5MIN PRN IV MILD PAIN Last administered on 02/07/17 14:08; Start 02/07/17 at 07:00; Stop 02/08/17 at 06 :59; Status DC Fentanyl Citrate (Fentanyl 2ml Vial) 50 mcg PRN Q5MIN PRN IV MODERATE PAIN; Start 02/07/17 at 07:00; Stop 02/08/17 at 06:59; Status DC Morphine Sulfate 1 mg PRN Q10MIN PRN IV SEVERE PAIN; Start 02/07/17 at 07:00; Stop 02/08/17 at 06:59; Status DC Ringer's Solution 1,000 ml @ 0 mls/hr Q0M IV Last administered on 02/07/17 13:45; Start 02/07/17 at 07:00; Stop 02/07/17 at 18:59; Status DC Lidocaine HCl (Xylocaine-Mpf 1% Vial) 2 ml PRN 1X PRN ID PRIOR TO IV START; Start 02/07/17 at 07:00; Stop 02/08/17 at 06:59; Status DC Hydromorphone HCl (Dilaudid) 0.5 mg PRN Q10MIN PRN IV SEV PAIN, Second choice; Start 02/07/17 at 07:00; Stop 02/08/17 at 06:59; Status DC Prochlorperazine Edisylate (Compazine) 5 mg PACU PRN PRN IV NAUSEA, MRX1; Start 02/07/17 at 07:00; Stop 02/08/17 at 06:59; Status DC Cefazolin Sodium/ Dextrose 50 ml @ 100 mls/hr 1X PREOP PRN IV PRIOR TO PROCEDURE; Start 02/07/17 at 06:00; Stop 02/07/17 at 18:00; Status DC Cefoxitin Sodium 2 gm/Sodium Chloride 100 ml @ 200 mls/hr 1X ONCE IV ; Start 02/07/17 at 07:00; Stop 02/07/17 at 07:29; Status UNV Cefoxitin Sodium 100 ml @ 200 mls/hr ONCE ONCE IV Last administered on t 08:16; Start 02/07/17 at 07:15; Stop 02/07/17 at 07:44; Status DC Lidocaine HCl (Lidocaine Pf 2% Vial) 5 ml STK-MED ONCE .ROUTE ; Start 02/07/17 at 07:29; Stop 02/07/17 at 07:30; Status DC Etomidate (Amidate) 20 mg STK-MED ONCE IV ; Start 02/07/17 at 07:29; Stop 02/14 at 07:30; Status DC Fentanyl Citrate (Fentanyl 2ml Vial) 100 mcg STK-MED ONCE .ROUTE ; Start at 07:29; Stop 02/07/17 at 07:30; Status DC Rocuronium Coyote (Zemuron) 100 mg STK-MED ONCE .ROUTE ; Start 02/07/17 at 07: 29; Stop 02/07/17 at 07:30; Status DC Dexamethasone Sodium Phosphate (Decadron) 20 mg STK-MED ONCE .ROUTE ; Start 02/14 at 08:16; Stop 02/07/17 at 08:17; Status DC Ondansetron HCl (Zofran) 4 mg STK-MED ONCE .ROUTE ; Start 02/07/17 at 08:16; Stop 02/07/17 at 08:17; Status DC Esmolol HCl (Brevibloc) 100 mg STK-MED ONCE IV ; Start 02/07/17 at 08:16; Stop 02/07/17 at 08:17; Status DC Phenylephrine HCl (Cheng-Synephrine Inj) 10 mg STK-MED ONCE .ROUTE ; Start at 08:16; Stop 02/07/17 at 08:17; Status DC Fentanyl Citrate (Fentanyl 2ml Vial) 100 mcg STK-MED ONCE .ROUTE ; Start at 08:17; Stop 02/07/17 at 08:18; Status DC Labetalol HCl (Normodyne) 20 mg STK-MED ONCE .ROUTE ; Start 02/07/17 at 08:50; Stop 02/07/17 at 08:51; Status DC Fentanyl Citrate (Fentanyl 2ml Vial) 100 mcg STK-MED ONCE .ROUTE ; Start at 09:21; Stop 02/07/17 at 09:22; Status DC Rocuronium [place]ote (Zemuron) 100 mg STK-MED ONCE .ROUTE ; Start 02/07/17 at 09: 30; Stop 02/07/17 at 09:31; Status DC Cellulose 1 each STK-MED ONCE .ROUTE Last administered on 02/07/17 10:57; Start 02/07/17 at 09:57; Stop 02/07/17 at 10:57; Status DC Albumin Human 500 ml @ As Directed STK-MED ONCE IV ; Start 02/07/17 at 11:06; Stop 02/07/17 at 11:07; Status DC Neostigmine Methylsulfate (Bloxiverz) 10 mg STK-MED ONCE .ROUTE ; Start at 11:20; Stop 02/07/17 at 11:21; Status DC Glycopyrrolate (Robinul) 1 mg STK-MED ONCE .ROUTE ; Start 02/07/17 at 11:20; Stop 02/07/17 at 11:21; Status DC Famotidine (Pepcid) 20 mg QHS IVP Last administered on 02/13/17 21:53; Start 02/07/17 at 21:00 Enoxaparin Sodium (Lovenox 30mg Syringe) 30 mg Q24H SQ Last administered on 08:13; Start 02/08/17 at 08:00; Stop 02/09/17 at 10:41; Status DC Sodium Chloride (Normal Saline Flush) 3 ml QSHIFT PRN IV AFTER MEDS AND BLOOD DRAWS; Start 02/07/17 at 12:00 Ringer's Solution 1,000 ml @ 100 mls/hr Q10H IV Last administered on 15:49; Start 02/07/17 at 11:49; Stop 02/12/17 at 09:57; Status DC Naloxone HCl (Narcan) 0.4 mg PRN Q2MIN PRN IV SEE INSTRUCTIONS; Start at 12:00 Sodium Chloride 1,000 ml @ 25 mls/hr Q24H IV Last administered on 02/07/17 11:49; Start 02/07/17 at 11:49; Stop 02/12/17 at 07:53; Status DC Morphine Sulfate 30 ml @ 0 mls/hr CONT PRN PRN IV PROTOCOL Last administered on 02/07/17 15:13; Start 02/07/17 at 12:00; Stop 02/10/17 at 11:04; Status DC Ondansetron HCl (Zofran) 4 mg PRN Q6HRS PRN IV NAUESA, 1ST CHOICE; Start 02/07 at 12:00 Insulin Aspart (NovoLOG VIAL) 100 unit STK-MED ONCE SQ ; Start 02/07/17 at 14: 01; Stop 02/07/17 at 14:02; Status DC Insulin Aspart (NovoLOG VIAL) 3 unit 1X ONCE SQ Last administered on 13:58; Start 02/07/17 at 14:15; Stop 02/07/17 at 14:16; Status DC Pneumococcal Polyvalent Vaccine (Do NOT chart on this placeholder) 1X ONCE MC ; Start 02/07/17 at 16:15; Stop 02/07/17 at 16:16; Status UNV Albuterol/ Ipratropium (Duoneb) 3 ml PRN Q6HRS PRN NEB SHORTNESS OF BREATH; Start 02/08/17 at 09:30; Stop 02/08/17 at 09:35; Status DC Albuterol Sulfate (Ventolin Neb Soln) 2.5 mg PRN Q4HRS PRN NEB SHORTNESS OF BREATH; Start 02/08/17 at 09:30 Insulin Aspart (NovoLOG) 0-9 UNITS TIDWMEALS SQ Last administered on 18:00; Start 02/08/17 at 12:00; Stop 02/10/17 at 18:58; Status DC Dextrose (Dextrose 50%-Water Syringe) 12.5 gm PRN Q15MIN PRN IV SEE COMMENTS; Start 02/08/17 at 09:30; Stop 02/10/17 at 18:58; Status DC Enoxaparin Sodium (Lovenox 40mg Syringe) 40 mg Q24H SQ ; Start 02/10/17 at 08: 00; Stop 02/10/17 at 08:00; Status DC Enoxaparin Sodium (Lovenox 60mg Syringe) 60 mg Q12HR SQ Last administered on 08:49; Start 02/09/17 at 20:00; Stop 02/12/17 at 08:58; Status DC Info 1 each PRN DAILY PRN MC SEE COMMENTS; Start 02/09/17 at 22:30; Status Cancel Morphine Sulfate 2 mg PRN Q2HR PRN IV PAIN Last administered on 02/12/17 17: 31; Start 02/10/17 at 11:00 Amino Acids/ Glycerin/ Electrolytes 1,000 ml @ 80 mls/hr [id number] IV Last administered on 02/13/17 05:19; Start 02/10/17 at 13:45; Stop 02/13/17 at 10 :02; Status DC Metoprolol Tartrate (Lopressor) 5 mg Q6HRS IVP Last administered on 02/14/17 05:49; Start 02/11/17 at 09:00 Diphenhydramine HCl (Benadryl) 25 mg PRN QHS PRN IVP SLEEP Last administered on 02/12/17 21:20; Start 02/11/17 at 08:45 Insulin Aspart (NovoLOG) 0-9 UNITS TIDWMEALS SQ Last administered on 10:20; Start 02/11/17 at 09:30 Dextrose (Dextrose 50%-Water Syringe) 12.5 gm PRN Q15MIN PRN IV SEE COMMENTS; Start 02/11/17 at 09:15 Info (Anti-Coagulation Monitoring By Pharmacy) 1 each PRN DAILY PRN MC SEE COMMENTS Last administered on 02/13/17 16:22; Start 02/11/17 at 14:30 Piperacillin Sod/ Tazobactam Sod (Zosyn Per Pharmacy) 1 each PRN DAILY PRN MC SEE COMMENTS; Start 02/11/17 at 18:15; Stop 02/14/17 at 09:39; Status DC Vancomycin HCl (Vanco Per Pharmacy) 1 each PRN DAILY PRN MC SEE COMMENTS Last administered on 02/13/17 21:02; Start 02/11/17 at 18:15; Stop 02/14/17 at 09 :15; Status DC Vancomycin HCl 1.5 gm/Sodium Chloride 500 ml @ 250 mls/hr 1X ONCE IV Last administered on 02/11/17 21:23; Start 02/11/17 at 19:00; Stop 02/11/17 at 20 :59; Status DC Piperacillin Sod/ Tazobactam Sod 2.25 gm/Sodium Chloride 50 ml @ 100 mls/hr Q6HRS IV Last administered on 02/14/17 05:40; Start 02/11/17 at 22:00; Stop 02/14/17 at 09:15; Status DC Vancomycin HCl 1 gm/Sodium Chloride 250 ml @ 250 mls/hr Q24H IV Last administered on 02/13/17 21:53; Start 02/12/17 at 21:00; Stop 02/14/17 at 09 :15; Status DC Vancomycin HCl 1 each 1X ONCE MC Last administered on 02/13/17 20:30; Start 02/13/17 at 20:30; Stop 02/13/17 at 20:31; Status DC Rivaroxaban (Xarelto) 15 mg BID PO Last administered on 02/13/17 21:56; Start 02/12/17 at 09:00 Fluconazole/ Sodium Chloride 50 ml @ 100 mls/hr Q24H IV Last administered on 02/13/17 15:00; Start 02/12/17 at 15:00 Insulin Detemir (Levemir) 10 units ONCE ONCE SQ Last administered on 11:12; Start 02/13/17 at 09:15; Stop 02/13/17 at 09:17; Status DC Amoxicillin/ Clavulanate Potassium (Augmentin 400-57mg/5ml Susp) 10 ml Q12HR PEG Last administered on 02/14/17 10:05; Start 02/14/17 at 10:00 Amoxicillin/ Clavulanate Potassium (Augmentin 400-57mg/5ml Susp) 10 ml Q12HR PEG ; Start 02/14/17 at 09:30; Status UNV Active Scripts Active Reported [Lidocaine] 15 Ml PO Q6HRS PRN [Ondansetron] 4 Mg IV PRN Q4HRS PRN [Pepcid Suspension] 20 IV BID Duoneb 0.5-3(2.5) Mg/3 Ml (Albuterol/Ipratropium) 3 Ml Ampul.neb 3 Ml NEB PRN Q6HRS PRN Novolog (Insulin Aspart) 100 Unit/1 Ml Cartridge 0 SQ Q6HRS Vitals/I & O Vital Sign - Last 24 Hours 02/13/17 02/13/17 02/13/17 02/13/17 15:00 18:04 19:00 20:00 Temp 97.9 98.5 97.9 98.5 Pulse 86 86 85 Resp 18 16 B/P (MAP) 122/68 (86) 122/68 106/63 (77) Pulse Ox 98 97 O2 Delivery Room Air Room Air Room Air 02/13/17 02/14/17 02/14/17 02/14/17 23:36 00:00 03:00 05:49 Temp 97.3 97.4 97.3 97.4 Pulse 82 82 80 86 Resp 16 16 B/P (MAP) 122/67 (85) 122/67 112/65 (81) 125/76 Pulse Ox 97 96 O2 Delivery Room Air BiPAP/CPAP 02/14/17 02/14/17 07:00 07:22 Temp 98.3 98.3 Pulse 77 Resp 18 B/P (MAP) 115/72 (86) Pulse Ox 97 97 O2 Delivery Room Air Room Air Nutrition Consultation Dietary Evaluation: Recommendations by RD: PPN/TPN Comments: REC continue TF via J tube: Diabetisource AC @10 ml/hr, increase 10 ml/hr q8 hrs to goal of 50 ml/hr w/100 ml flushes q6 hrs Expected Outcomes/Goals: tolerate TF at goal- met, goal ongoing Malnutrition Findings: Food and Nutrition Intake (Mod: <75% est energy req 7days Body Fat Depletion (Non Severe: Mild Depletion Weight Status: Underweight FILIPPO PERALTA MD Feb 14, 2017 12:03
[2017-02-14] MEDS ORDERED: FLUCONAZOLE 100 MG TABLET. PO SCH (13:00)
[2017-02-14 15:00] VITALS: BP 92/60
--- NOTE | 2017-02-14 15:58 | PDOC2 ---
PALLIATIVE CARE Palliative Care Note Palliative Care Patient alert. Met with patient, Eryn Rasheed/dtr and son in-law Acosta. Gruop, Armando, Josué and Valentina unable to be here. Reviewed medical condition. Discussed Advanced Directive. Patient and family want other family members involved before completing document. Copy of Document provided to patient. Discussed Code Status: patient unable to make decision at this time. Will continue Full Code Status. Family understands co-pay of $160/day. Goal is to continue to try to get stronger. Plan; PP for strengthening and continue tube feeding Dysphagia I diet. Spoke with Mallory at PP and informed of plan ENEIDA TRIPP Feb 14, 2017 15:58
[2017-02-14 19:30] VITALS: BP 121/67
[2017-02-14 23:24] VITALS: BP 113/70
[2017-02-15] MEDS: METOPROLOL TARTRATE 5 MG/5 ML VIAL. IVP SCH ×3 (00:36→12:00)
[2017-02-15 03:24] VITALS: BP 128/74
[2017-02-15 06:17] LABS: BASO % 1 % (0-3); EOS % 2 % (0-3); HEMATOCRIT 24.1 % (39.0-53.0); HEMOGLOBIN 7.9 g/dL (13.0-17.5); LYMPH # 0.9 x10^3/uL (1.0-4.8); LYMPH % 13 % (24-48); MEAN CORPUSCULAR HEMOGLOBIN 28 pg (25-35); MEAN CORPUSCULAR HGB CONC 33 g/dL (31-37); MEAN CORPUSCULAR VOLUME 86 fL (79-100); MONO % 7 % (0-9); NEUT % 79 % (31-73); PLATELET COUNT 204 x10^3/uL (140-400); RED BLOOD COUNT 2.79 x10^6/uL (4.30-5.70); RED CELL DISTRIBUTION WIDTH 14.3 % (11.5-14.5)
[2017-02-15 06:32] LABS: CALCIUM 7.6 mg/dL (8.5-10.1); CREATININE 1.7 mg/dL (0.7-1.3); GFR 38.5; POTASSIUM 3.7 mmol/L (3.5-5.1)
[2017-02-15 07:00] VITALS: BP 121/62
--- NOTE | 2017-02-15 08:22 | PDOC ---
Infectious Disease Note Subjective Subjective Doing ok Has occ pain across mid abd ROS ROS [place] but seems more alert and appropriate today GEN: Denies fevers, chills, sweats HEENT: Denies blurred vision, sore throat CV: Denies chest pain RESP: Denies shortness of air, cough GI: Denies n/v/d NEURO: Denies confusion, dizziness MSK: Denies weakness, joint pain/swelling Vital Sign Vital Signs Vital Signs Date Time Temp Pulse Resp B/P (MAP) Pulse Ox O2 Delivery O2 Flow Rate FiO2 02/15/17 06:04 83 128/74 02/15/17 03:24 98.3 18 97 Room Air 98.3 Physical Exam PHYSICAL EXAM GENERAL: NAD, Alert, in bed, looks comforable HEENT: PERRL, OC/OP - dry NECK: Supple, no JVD, no LN LUNGS: Clear HEART: S1S2, no gallop, no murmur ABD: Soft, SULMA, clean incision. Mid distension, J-tube EXT: No edema, no cyanosis SALESMAN/OWNER: Alert, oriented, no focal neurologic deficit, [place] SKIN: No rash IV: ok Labs Lab Laboratory Tests Test 02/14/17 11:57 02/14/17 16:32 02/14/17 21:02 02/15/17 06:00 Glucose (Fingerstick) 198 mg/dL (70-99) 157 mg/dL (70-99) 157 mg/dL (70-99) White Blood Count 7.0 x10^3/uL (4.0-11.0) Red Blood Count 2.79 x10^6/uL (4.30-5.70) Hemoglobin 7.9 g/dL (13.0-17.5) Hematocrit 24.1 % (39.0-53.0) Mean Corpuscular Volume 86 fL (79-100) Mean Corpuscular Hemoglobin 28 pg (25-35) Mean Corpuscular Hemoglobin Concent 33 g/dL (31-37) Red Cell Distribution Width 14.3 % (11.5-14.5) Platelet Count 204 x10^3/uL (140-400) Neutrophils (%) (Auto) 79 % (31-73) Lymphocytes (%) (Auto) 13 % (24-48) Monocytes (%) (Auto) 7 % (0-9) Eosinophils (%) (Auto) 2 % (0-3) Basophils (%) (Auto) 1 % (0-3) Neutrophils # (Auto) 5.5 x10^3uL (1.8-7.7) Lymphocytes # (Auto) 0.9 x10^3/uL (1.0-4.8) Monocytes # (Auto) 0.5 x10^3/uL (0.0-1.1) Eosinophils # (Auto) 0.1 x10^3/uL (0.0-0.7) Basophils # (Auto) 0.0 x10^3/uL (0.0-0.2) Sodium Level 143 mmol/L (136-145) Potassium Level 3.7 mmol/L (3.5-5.1) Chloride Level 105 mmol/L (98-107) Carbon Dioxide Level 32 mmol/L (21-32) Anion Gap 6 (6-14) Blood Urea Nitrogen 38 mg/dL (8-26) Creatinine 1.7 mg/dL (0.7-1.3) Estimated GFR (Cockcroft-Gault) 38.5 Glucose Level 265 mg/dL (70-99) Calcium Level 7.6 mg/dL (8.5-10.1) Test 02/15/17 07:30 Glucose (Fingerstick) 293 mg/dL (70-99) Objective Assessment Fever - better Leukocytosis - hopefully reactive - better - pre-op steroids 02/07 Yeast in urine DVT RUE s/p PICC removal 02/09 Gastric outlet obstruction s/p abdominal surgery, Feb 07 Malnutrition Anemia s/p PRBCs 02/08 CKD Plan Plan of Care Cont augmentin via tube through until 02/18 D/c Fluconazole TIARA BERTRAND MD Feb 15, 2017 08:22
[2017-02-15] MEDS: AMOXICILLIN/CLAV 400MG/57MG 5 ML ORAL.SUSP. PEG SCH (09:29)
[2017-02-15] MEDS: RIVAROXABAN 15 MG TABLET. PO SCH (09:29)
[2017-02-15] MEDS: INSULIN ASPART 300 UNITS/3 ML INSULN.PEN SQ SCH ×2 (09:32→12:58)
--- NOTE | 2017-02-15 10:05 | PDOC3 ---
Discharge Summary Visit Information Date of Admission: Feb 07, 2017 Date of Discharge: Feb 15, 2017 Admitting Diagnosis: gastric outlet obstruction Final Diagnosis benign gastric outlet obstruction, severe malnutrition Brief Hospital Course Allergies Allergies Coded Allergies Type Severity Reaction Last Updated Verified No Known Drug Allergies 02/07/17 No Vital Signs Vital Signs Date Time Temp Pulse Resp B/P (MAP) Pulse Ox O2 Delivery O2 Flow Rate FiO2 02/15/17 07:00 97.6 78 16 121/62 (81) 96 Room Air 97.6 Lab Results Laboratory Tests Test 02/13/17 10:14 02/13/17 16:10 02/13/17 20:32 02/13/17 20:59 Glucose (Fingerstick) 318 mg/dL (70-99) 206 mg/dL (70-99) 126 mg/dL (70-99) Vancomycin Level Trough 16.0 mcg/mL (10.0-20.0) Vancomycin Last Dose Date 02/12/17 Vancomycin Last Dose Time 2100 Test 02/14/17 04:45 02/14/17 07:19 02/14/17 11:57 02/14/17 16:32 White Blood Count 8.7 x10^3/uL (4.0-11.0) Red Blood Count 2.94 x10^6/uL (4.30-5.70) Hemoglobin 8.5 g/dL (13.0-17.5) Hematocrit 25.8 % (39.0-53.0) Mean Corpuscular Volume 88 fL (79-100) Mean Corpuscular Hemoglobin 29 pg (25-35) Mean Corpuscular Hemoglobin Concent 33 g/dL (31-37) Red Cell Distribution Width 14.3 % (11.5-14.5) Platelet Count 178 x10^3/uL (140-400) Neutrophils (%) (Auto) 79 % (31-73) Lymphocytes (%) (Auto) 13 % (24-48) Monocytes (%) (Auto) 5 % (0-9) Eosinophils (%) (Auto) 2 % (0-3) Basophils (%) (Auto) 1 % (0-3) Neutrophils # (Auto) 6.9 x10^3uL (1.8-7.7) Lymphocytes # (Auto) 1.2 x10^3/uL (1.0-4.8) Monocytes # (Auto) 0.5 x10^3/uL (0.0-1.1) Eosinophils # (Auto) 0.1 x10^3/uL (0.0-0.7) Basophils # (Auto) 0.1 x10^3/uL (0.0-0.2) Sodium Level 142 mmol/L (136-145) Potassium Level 3.6 mmol/L (3.5-5.1) Chloride Level 105 mmol/L (98-107) Carbon Dioxide Level 28 mmol/L (21-32) Anion Gap 9 (6-14) Blood Urea Nitrogen 41 mg/dL (8-26) Creatinine 1.5 mg/dL (0.7-1.3) Estimated GFR (Cockcroft-Gault) 44.5 Glucose Level 188 mg/dL (70-99) Calcium Level 8.0 mg/dL (8.5-10.1) Glucose (Fingerstick) 219 mg/dL (70-99) 198 mg/dL (70-99) 157 mg/dL (70-99) Test 02/14/17 21:02 02/15/17 06:00 02/15/17 07:30 Glucose (Fingerstick) 157 mg/dL (70-99) 293 mg/dL (70-99) White Blood Count 7.0 x10^3/uL (4.0-11.0) Red Blood Count 2.79 x10^6/uL (4.30-5.70) Hemoglobin 7.9 g/dL (13.0-17.5) Hematocrit 24.1 % (39.0-53.0) Mean Corpuscular Volume 86 fL (79-100) Mean Corpuscular Hemoglobin 28 pg (25-35) Mean Corpuscular Hemoglobin Concent 33 g/dL (31-37) Red Cell Distribution Width 14.3 % (11.5-14.5) Platelet Count 204 x10^3/uL (140-400) Neutrophils (%) (Auto) 79 % (31-73) Lymphocytes (%) (Auto) 13 % (24-48) Monocytes (%) (Auto) 7 % (0-9) Eosinophils (%) (Auto) 2 % (0-3) Basophils (%) (Auto) 1 % (0-3) Neutrophils # (Auto) 5.5 x10^3uL (1.8-7.7) Lymphocytes # (Auto) 0.9 x10^3/uL (1.0-4.8) Monocytes # (Auto) 0.5 x10^3/uL (0.0-1.1) Eosinophils # (Auto) 0.1 x10^3/uL (0.0-0.7) Basophils # (Auto) 0.0 x10^3/uL (0.0-0.2) Sodium Level 143 mmol/L (136-145) Potassium Level 3.7 mmol/L (3.5-5.1) Chloride Level 105 mmol/L (98-107) Carbon Dioxide Level 32 mmol/L (21-32) Anion Gap 6 (6-14) Blood Urea Nitrogen 38 mg/dL (8-26) Creatinine 1.7 mg/dL (0.7-1.3) Estimated GFR (Cockcroft-Gault) 38.5 Glucose Level 265 mg/dL (70-99) Calcium Level 7.6 mg/dL (8.5-10.1) Laboratory Tests Test 02/14/17 11:57 02/14/17 16:32 02/14/17 21:02 02/15/17 06:00 Glucose (Fingerstick) 198 mg/dL (70-99) 157 mg/dL (70-99) 157 mg/dL (70-99) White Blood Count 7.0 x10^3/uL (4.0-11.0) Red Blood Count 2.79 x10^6/uL (4.30-5.70) Hemoglobin 7.9 g/dL (13.0-17.5) Hematocrit 24.1 % (39.0-53.0) Mean Corpuscular Volume 86 fL (79-100) Mean Corpuscular Hemoglobin 28 pg (25-35) Mean Corpuscular Hemoglobin Concent 33 g/dL (31-37) Red Cell Distribution Width 14.3 % (11.5-14.5) Platelet Count 204 x10^3/uL (140-400) Neutrophils (%) (Auto) 79 % (31-73) Lymphocytes (%) (Auto) 13 % (24-48) Monocytes (%) (Auto) 7 % (0-9) Eosinophils (%) (Auto) 2 % (0-3) Basophils (%) (Auto) 1 % (0-3) Neutrophils # (Auto) 5.5 x10^3uL (1.8-7.7) Lymphocytes # (Auto) 0.9 x10^3/uL (1.0-4.8) Monocytes # (Auto) 0.5 x10^3/uL (0.0-1.1) Eosinophils # (Auto) 0.1 x10^3/uL (0.0-0.7) Basophils # (Auto) 0.0 x10^3/uL (0.0-0.2) Sodium Level 143 mmol/L (136-145) Potassium Level 3.7 mmol/L (3.5-5.1) Chloride Level 105 mmol/L (98-107) Carbon Dioxide Level 32 mmol/L (21-32) Anion Gap 6 (6-14) Blood Urea Nitrogen 38 mg/dL (8-26) Creatinine 1.7 mg/dL (0.7-1.3) Estimated GFR (Cockcroft-Gault) 38.5 Glucose Level 265 mg/dL (70-99) Calcium Level 7.6 mg/dL (8.5-10.1) Test 02/15/17 07:30 Glucose (Fingerstick) 293 mg/dL (70-99) Brief Hospital Course Mr. Pittman is a 86 old M who presented with gastric outlet obstruction. He was treated with TPN for a few weeks. He was subsequently admitted and underwent antrectomy with heath en Y reconstruction. He gradually improved, and has done with J-tube nutrition supplementation. Day of discharge he is tolerating PO and tube feeds. He will continue to improve at [facility]. Discharge Information Scheduled Insulin Aspart (Novolog), 0 SQ Q6HRS, (Reported) [Pepcid Suspension], 20 IV BID, (Reported) Scheduled PRN Ipratropium/Albuterol Sulfate (Duoneb 0.5-3(2.5) Mg/3 Ml), 3 ML NEB PRN Q6HRS PRN for SHORTNESS OF BREATH, (Reported) [Lidocaine], 15 ML PO Q6HRS PRN for SEE COMMENTS, (Reported) [Ondansetron], 4 MG IV PRN Q4HRS PRN for NAUSEA/VOMITING, (Reported) Patient Instructions Patient Instructions Diet as tolerated per speech guidelines. Activity as tolerated. Continue J-tube nutrition. F/u with Terrie in two weeks. JACK STYLES MD Feb 15, 2017 10:05
[2017-02-15 11:00] VITALS: BP 128/65
--- NOTE | 2017-02-15 11:03 | PDOC2 ---
PALLIATIVE CARE Palliative Care Note Palliative Care Patient alert. Sitting up in bed. More engaged in conversation today. Refusing to eat--indicating not hungry Patient walked 160 feet yesterday with PT Encouraged participation in PT/OT and exercises. Encouraged to eat. Spoke with and Eryn. Acosta and Valentina--daughter and son in-law live with patient. Acosta works from home and will be available to assist with care. Per family patient will have g-tube for six weeks. Plan is to go home after SNU. ENEIDA TRIPP Feb 15, 2017 11:03
--- NOTE | 2017-02-15 11:48 | PDOC ---
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 Cleared form pirmary service to dc - we are on consult BUt I did fill out MAR PLAN: dc to ppalce today on dyaphgia 1 diet FULL code ff up GS as instructed time paperwork etc 20 mins Vitals Vitals Vital Signs Date Time Temp Pulse Resp B/P (MAP) Pulse Ox O2 Delivery O2 Flow Rate FiO2 02/15/17 07:00 97.6 78 16 121/62 (81) 96 Room Air 97.6 Physical Exam General: Alert, Oriented X3, Cooperative, No acute distress Heart: Regular rate, Normal S1, Normal S2 Lungs: Clear Abdomen: Soft, No tenderness, Other (dressing c/d/i, SULMA min serosang) Extremities: No clubbing, No cyanosis Skin: No rashes, No breakdown Labs LABS Laboratory Tests Test 02/14/17 11:57 02/14/17 16:32 02/14/17 21:02 02/15/17 06:00 Glucose (Fingerstick) 198 mg/dL (70-99) 157 mg/dL (70-99) 157 mg/dL (70-99) White Blood Count 7.0 x10^3/uL (4.0-11.0) Red Blood Count 2.79 x10^6/uL (4.30-5.70) Hemoglobin 7.9 g/dL (13.0-17.5) Hematocrit 24.1 % (39.0-53.0) Mean Corpuscular Volume 86 fL (79-100) Mean Corpuscular Hemoglobin 28 pg (25-35) Mean Corpuscular Hemoglobin Concent 33 g/dL (31-37) Red Cell Distribution Width 14.3 % (11.5-14.5) Platelet Count 204 x10^3/uL (140-400) Neutrophils (%) (Auto) 79 % (31-73) Lymphocytes (%) (Auto) 13 % (24-48) Monocytes (%) (Auto) 7 % (0-9) Eosinophils (%) (Auto) 2 % (0-3) Basophils (%) (Auto) 1 % (0-3) Neutrophils # (Auto) 5.5 x10^3uL (1.8-7.7) Lymphocytes # (Auto) 0.9 x10^3/uL (1.0-4.8) Monocytes # (Auto) 0.5 x10^3/uL (0.0-1.1) Eosinophils # (Auto) 0.1 x10^3/uL (0.0-0.7) Basophils # (Auto) 0.0 x10^3/uL (0.0-0.2) Sodium Level 143 mmol/L (136-145) Potassium Level 3.7 mmol/L (3.5-5.1) Chloride Level 105 mmol/L (98-107) Carbon Dioxide Level 32 mmol/L (21-32) Anion Gap 6 (6-14) Blood Urea Nitrogen 38 mg/dL (8-26) Creatinine 1.7 mg/dL (0.7-1.3) Estimated GFR (Cockcroft-Gault) 38.5 Glucose Level 265 mg/dL (70-99) Calcium Level 7.6 mg/dL (8.5-10.1) Test 02/15/17 07:30 Glucose (Fingerstick) 293 mg/dL (70-99) Review of Systems Review of Systems denies 14 pt reviewed Comment Review of Relevant I have reviewed the following items sukhwinder (where applicable) has been applied. Labs Laboratory Tests Test 02/13/17 16:10 02/13/17 20:32 02/13/17 20:59 02/14/17 04:45 Glucose (Fingerstick) 206 mg/dL (70-99) 126 mg/dL (70-99) Vancomycin Level Trough 16.0 mcg/mL (10.0-20.0) Vancomycin Last Dose Date 02/12/17 Vancomycin Last Dose Time 2100 White Blood Count 8.7 x10^3/uL (4.0-11.0) Red Blood Count 2.94 x10^6/uL (4.30-5.70) Hemoglobin 8.5 g/dL (13.0-17.5) Hematocrit 25.8 % (39.0-53.0) Mean Corpuscular Volume 88 fL (79-100) Mean Corpuscular Hemoglobin 29 pg (25-35) Mean Corpuscular Hemoglobin Concent 33 g/dL (31-37) Red Cell Distribution Width 14.3 % (11.5-14.5) Platelet Count 178 x10^3/uL (140-400) Neutrophils (%) (Auto) 79 % (31-73) Lymphocytes (%) (Auto) 13 % (24-48) Monocytes (%) (Auto) 5 % (0-9) Eosinophils (%) (Auto) 2 % (0-3) Basophils (%) (Auto) 1 % (0-3) Neutrophils # (Auto) 6.9 x10^3uL (1.8-7.7) Lymphocytes # (Auto) 1.2 x10^3/uL (1.0-4.8) Monocytes # (Auto) 0.5 x10^3/uL (0.0-1.1) Eosinophils # (Auto) 0.1 x10^3/uL (0.0-0.7) Basophils # (Auto) 0.1 x10^3/uL (0.0-0.2) Sodium Level 142 mmol/L (136-145) Potassium Level 3.6 mmol/L (3.5-5.1) Chloride Level 105 mmol/L (98-107) Carbon Dioxide Level 28 mmol/L (21-32) Anion Gap 9 (6-14) Blood Urea Nitrogen 41 mg/dL (8-26) Creatinine 1.5 mg/dL (0.7-1.3) Estimated GFR (Cockcroft-Gault) 44.5 Glucose Level 188 mg/dL (70-99) Calcium Level 8.0 mg/dL (8.5-10.1) Test 02/14/17 07:19 02/14/17 11:57 02/14/17 16:32 02/14/17 21:02 Glucose (Fingerstick) 219 mg/dL (70-99) 198 mg/dL (70-99) 157 mg/dL (70-99) 157 mg/dL (70-99) Test 02/15/17 06:00 02/15/17 07:30 White Blood Count 7.0 x10^3/uL (4.0-11.0) Red Blood Count 2.79 x10^6/uL (4.30-5.70) Hemoglobin 7.9 g/dL (13.0-17.5) Hematocrit 24.1 % (39.0-53.0) Mean Corpuscular Volume 86 fL (79-100) Mean Corpuscular Hemoglobin 28 pg (25-35) Mean Corpuscular Hemoglobin Concent 33 g/dL (31-37) Red Cell Distribution Width 14.3 % (11.5-14.5) Platelet Count 204 x10^3/uL (140-400) Neutrophils (%) (Auto) 79 % (31-73) Lymphocytes (%) (Auto) 13 % (24-48) Monocytes (%) (Auto) 7 % (0-9) Eosinophils (%) (Auto) 2 % (0-3) Basophils (%) (Auto) 1 % (0-3) Neutrophils # (Auto) 5.5 x10^3uL (1.8-7.7) Lymphocytes # (Auto) 0.9 x10^3/uL (1.0-4.8) Monocytes # (Auto) 0.5 x10^3/uL (0.0-1.1) Eosinophils # (Auto) 0.1 x10^3/uL (0.0-0.7) Basophils # (Auto) 0.0 x10^3/uL (0.0-0.2) Sodium Level 143 mmol/L (136-145) Potassium Level 3.7 mmol/L (3.5-5.1) Chloride Level 105 mmol/L (98-107) Carbon Dioxide Level 32 mmol/L (21-32) Anion Gap 6 (6-14) Blood Urea Nitrogen 38 mg/dL (8-26) Creatinine 1.7 mg/dL (0.7-1.3) Estimated GFR (Cockcroft-Gault) 38.5 Glucose Level 265 mg/dL (70-99) Calcium Level 7.6 mg/dL (8.5-10.1) Glucose (Fingerstick) 293 mg/dL (70-99) Laboratory Tests Test 02/14/17 11:57 02/14/17 16:32 02/14/17 21:02 02/15/17 06:00 Glucose (Fingerstick) 198 mg/dL (70-99) 157 mg/dL (70-99) 157 mg/dL (70-99) White Blood Count 7.0 x10^3/uL (4.0-11.0) Red Blood Count 2.79 x10^6/uL (4.30-5.70) Hemoglobin 7.9 g/dL (13.0-17.5) Hematocrit 24.1 % (39.0-53.0) Mean Corpuscular Volume 86 fL (79-100) Mean Corpuscular Hemoglobin 28 pg (25-35) Mean Corpuscular Hemoglobin Concent 33 g/dL (31-37) Red Cell Distribution Width 14.3 % (11.5-14.5) Platelet Count 204 x10^3/uL (140-400) Neutrophils (%) (Auto) 79 % (31-73) Lymphocytes (%) (Auto) 13 % (24-48) Monocytes (%) (Auto) 7 % (0-9) Eosinophils (%) (Auto) 2 % (0-3) Basophils (%) (Auto) 1 % (0-3) Neutrophils # (Auto) 5.5 x10^3uL (1.8-7.7) Lymphocytes # (Auto) 0.9 x10^3/uL (1.0-4.8) Monocytes # (Auto) 0.5 x10^3/uL (0.0-1.1) Eosinophils # (Auto) 0.1 x10^3/uL (0.0-0.7) Basophils # (Auto) 0.0 x10^3/uL (0.0-0.2) Sodium Level 143 mmol/L (136-145) Potassium Level 3.7 mmol/L (3.5-5.1) Chloride Level 105 mmol/L (98-107) Carbon Dioxide Level 32 mmol/L (21-32) Anion Gap 6 (6-14) Blood Urea Nitrogen 38 mg/dL (8-26) Creatinine 1.7 mg/dL (0.7-1.3) Estimated GFR (Cockcroft-Gault) 38.5 Glucose Level 265 mg/dL (70-99) Calcium Level 7.6 mg/dL (8.5-10.1) Test 02/15/17 07:30 Glucose (Fingerstick) 293 mg/dL (70-99) Microbiology 10/14/17 Blood Culture - Preliminary, Resulted NO GROWTH AFTER 3 DAYS Medications Current Medications Ondansetron HCl (Zofran) 4 mg PRN Q6HRS PRN IV NAUSEA/VOMITING; Start at 07:00; Stop 02/08/17 at 06:59; Status DC Fentanyl Citrate (Fentanyl 2ml Vial) 25 mcg PRN Q5MIN PRN IV MILD PAIN Last administered on 02/07/17 14:08; Start 02/07/17 at 07:00; Stop 02/08/17 at 06 :59; Status DC Fentanyl Citrate (Fentanyl 2ml Vial) 50 mcg PRN Q5MIN PRN IV MODERATE PAIN; Start 02/07/17 at 07:00; Stop 02/08/17 at 06:59; Status DC Morphine Sulfate 1 mg PRN Q10MIN PRN IV SEVERE PAIN; Start 02/07/17 at 07:00; Stop 02/08/17 at 06:59; Status DC Ringer's Solution 1,000 ml @ 0 mls/hr Q0M IV Last administered on 02/07/17t 13:45; Start 02/07/17 at 07:00; Stop 02/07/17 at 18:59; Status DC Lidocaine HCl (Xylocaine-Mpf 1% Vial) 2 ml PRN 1X PRN ID PRIOR TO IV START; Start 02/07/17 at 07:00; Stop 02/08/17 at 06:59; Status DC Hydromorphone HCl (Dilaudid) 0.5 mg PRN Q10MIN PRN IV SEV PAIN, Second choice; Start 02/07/17 at 07:00; Stop 02/08/17 at 06:59; Status DC Prochlorperazine Edisylate (Compazine) 5 mg PACU PRN PRN IV NAUSEA, MRX1; Start 02/07/17 at 07:00; Stop 02/08/17 at 06:59; Status DC Cefazolin Sodium/ Dextrose 50 ml @ 100 mls/hr 1X PREOP PRN IV PRIOR TO PROCEDURE; Start 02/07/17 at 06:00; Stop 02/07/17 at 18:00; Status DC Cefoxitin Sodium 2 gm/Sodium Chloride 100 ml @ 200 mls/hr 1X ONCE IV ; Start 02/07/17 at 07:00; Stop 02/07/17 at 07:29; Status UNV Cefoxitin Sodium 100 ml @ 200 mls/hr ONCE ONCE IV Last administered on t 08:16; Start 02/07/17 at 07:15; Stop 02/07/17 at 07:44; Status DC Lidocaine HCl (Lidocaine Pf 2% Vial) 5 ml STK-MED ONCE .ROUTE ; Start 02/07/17 at 07:29; Stop 02/07/17 at 07:30; Status DC Etomidate (Amidate) 20 mg STK-MED ONCE IV ; Start 02/07/17 at 07:29; Stop 02/14 at 07:30; Status DC Fentanyl Citrate (Fentanyl 2ml Vial) 100 mcg STK-MED ONCE .ROUTE ; Start at 07:29; Stop 02/07/17 at 07:30; Status DC Rocuronium Rochert (Zemuron) 100 mg STK-MED ONCE .ROUTE ; Start 02/07/17 at 07: 29; Stop 02/07/17 at 07:30; Status DC Dexamethasone Sodium Phosphate (Decadron) 20 mg STK-MED ONCE .ROUTE ; Start 02/14 at 08:16; Stop 02/07/17 at 08:17; Status DC Ondansetron HCl (Zofran) 4 mg STK-MED ONCE .ROUTE ; Start 02/07/17 at 08:16; Stop 02/07/17 at 08:17; Status DC Esmolol HCl (Brevibloc) 100 mg STK-MED ONCE IV ; Start 02/07/17 at 08:16; Stop 02/07/17 at 08:17; Status DC Phenylephrine HCl (Cheng-Synephrine Inj) 10 mg STK-MED ONCE .ROUTE ; Start at 08:16; Stop 02/07/17 at 08:17; Status DC Fentanyl Citrate (Fentanyl 2ml Vial) 100 mcg STK-MED ONCE .ROUTE ; Start at 08:17; Stop 02/07/17 at 08:18; Status DC Labetalol HCl (Normodyne) 20 mg STK-MED ONCE .ROUTE ; Start 02/07/17 at 08:50; Stop 02/07/17 at 08:51; Status DC Fentanyl Citrate (Fentanyl 2ml Vial) 100 mcg STK-MED ONCE .ROUTE ; Start at 09:21; Stop 02/07/17 at 09:22; Status DC Rocuronium Rochert (Zemuron) 100 mg STK-MED ONCE .ROUTE ; Start 02/07/17 at 09: 30; Stop 02/07/17 at 09:31; Status DC Cellulose 1 each STK-MED ONCE .ROUTE Last administered on 02/07/17 10:57; Start 02/07/17 at 09:57; Stop 02/07/17 at 10:57; Status DC Albumin Human 500 ml @ As Directed STK-MED ONCE IV ; Start 02/07/17 at 11:06; Stop 02/07/17 at 11:07; Status DC Neostigmine Methylsulfate (Bloxiverz) 10 mg STK-MED ONCE .ROUTE ; Start at 11:20; Stop 02/07/17 at 11:21; Status DC Glycopyrrolate (Robinul) 1 mg STK-MED ONCE .ROUTE ; Start 02/07/17 at 11:20; Stop 02/07/17 at 11:21; Status DC Famotidine (Pepcid) 20 mg QHS IVP Last administered on 02/13/17 21:53; Start 02/07/17 at 21:00; Stop 02/14/17 at 12:06; Status DC Enoxaparin Sodium (Lovenox 30mg Syringe) 30 mg Q24H SQ Last administered on 08:13; Start 02/08/17 at 08:00; Stop 02/09/17 at 10:41; Status DC Sodium Chloride (Normal Saline Flush) 3 ml QSHIFT PRN IV AFTER MEDS AND BLOOD DRAWS; Start 02/07/17 at 12:00 Ringer's Solution 1,000 ml @ 100 mls/hr Q10H IV Last administered on 15:49; Start 02/07/17 at 11:49; Stop 02/12/17 at 09:57; Status DC Naloxone HCl (Narcan) 0.4 mg PRN Q2MIN PRN IV SEE INSTRUCTIONS; Start at 12:00 Sodium Chloride 1,000 ml @ 25 mls/hr Q24H IV Last administered on 02/07/17 11:49; Start 02/07/17 at 11:49; Stop 02/12/17 at 07:53; Status DC Morphine Sulfate 30 ml @ 0 mls/hr CONT PRN PRN IV PROTOCOL Last administered on 02/07/17 15:13; Start 02/07/17 at 12:00; Stop 02/10/17 at 11:04; Status DC Ondansetron HCl (Zofran) 4 mg PRN Q6HRS PRN IV NAUESA, 1ST CHOICE; Start 02/07 at 12:00 Insulin Aspart (NovoLOG VIAL) 100 unit STK-MED ONCE SQ ; Start 02/07/17 at 14: 01; Stop 02/07/17 at 14:02; Status DC Insulin Aspart (NovoLOG VIAL) 3 unit 1X ONCE SQ Last administered on 13:58; Start 02/07/17 at 14:15; Stop 02/07/17 at 14:16; Status DC Pneumococcal Polyvalent Vaccine (Do NOT chart on this placeholder) 1X ONCE MC ; Start 02/07/17 at 16:15; Stop 02/07/17 at 16:16; Status UNV Albuterol/ Ipratropium (Duoneb) 3 ml PRN Q6HRS PRN NEB SHORTNESS OF BREATH; Start 02/08/17 at 09:30; Stop 02/08/17 at 09:35; Status DC Albuterol Sulfate (Ventolin Neb Soln) 2.5 mg PRN Q4HRS PRN NEB SHORTNESS OF BREATH; Start 02/08/17 at 09:30 Insulin Aspart (NovoLOG) 0-9 UNITS TIDWMEALS SQ Last administered on 18:00; Start 02/08/17 at 12:00; Stop 02/10/17 at 18:58; Status DC Dextrose (Dextrose 50%-Water Syringe) 12.5 gm PRN Q15MIN PRN IV SEE COMMENTS; Start 02/08/17 at 09:30; Stop 02/10/17 at 18:58; Status DC Enoxaparin Sodium (Lovenox 40mg Syringe) 40 mg Q24H SQ ; Start 02/10/17 at 08: 00; Stop 02/10/17 at 08:00; Status DC Enoxaparin Sodium (Lovenox 60mg Syringe) 60 mg Q12HR SQ Last administered on 08:49; Start 02/09/17 at 20:00; Stop 02/12/17 at 08:58; Status DC Info 1 each PRN DAILY PRN MC SEE COMMENTS; Start 02/09/17 at 22:30; Status Cancel Morphine Sulfate 2 mg PRN Q2HR PRN IV PAIN Last administered on 02/12/17 17: 31; Start 02/10/17 at 11:00 Amino Acids/ Glycerin/ Electrolytes 1,000 ml @ 80 mls/hr [id number] IV Last administered on 02/13/17 05:19; Start 02/10/17 at 13:45; Stop 02/13/17 at 10 :02; Status DC Metoprolol Tartrate (Lopressor) 5 mg Q6HRS IVP Last administered on 02/15/17 06:04; Start 02/11/17 at 09:00 Diphenhydramine HCl (Benadryl) 25 mg PRN QHS PRN IVP SLEEP Last administered on 02/12/17 21:20; Start 02/11/17 at 08:45 Insulin Aspart (NovoLOG) 0-9 UNITS TIDWMEALS SQ Last administered on 09:32; Start 02/11/17 at 09:30 Dextrose (Dextrose 50%-Water Syringe) 12.5 gm PRN Q15MIN PRN IV SEE COMMENTS; Start 02/11/17 at 09:15 Info (Anti-Coagulation Monitoring By Pharmacy) 1 each PRN DAILY PRN MC SEE COMMENTS Last administered on 02/13/17 16:22; Start 02/11/17 at 14:30 Piperacillin Sod/ Tazobactam Sod (Zosyn Per Pharmacy) 1 each PRN DAILY PRN MC SEE COMMENTS; Start 02/11/17 at 18:15; Stop 02/14/17 at 09:39; Status DC Vancomycin HCl (Vanco Per Pharmacy) 1 each PRN DAILY PRN MC SEE COMMENTS Last administered on 02/13/17 21:02; Start 02/11/17 at 18:15; Stop 02/14/17 at 09 :15; Status DC Vancomycin HCl 1.5 gm/Sodium Chloride 500 ml @ 250 mls/hr 1X ONCE IV Last administered on 02/11/17 21:23; Start 02/11/17 at 19:00; Stop 02/11/17 at 20 :59; Status DC Piperacillin Sod/ Tazobactam Sod 2.25 gm/Sodium Chloride 50 ml @ 100 mls/hr Q6HRS IV Last administered on 02/14/17 05:40; Start 02/11/17 at 22:00; Stop 02/14/17 at 09:15; Status DC Vancomycin HCl 1 gm/Sodium Chloride 250 ml @ 250 mls/hr Q24H IV Last administered on 02/13/17 21:53; Start 02/12/17 at 21:00; Stop 02/14/17 at 09 :15; Status DC Vancomycin HCl 1 each 1X ONCE MC Last administered on 02/13/17 20:30; Start 02/13/17 at 20:30; Stop 02/13/17 at 20:31; Status DC Rivaroxaban (Xarelto) 15 mg BID PO Last administered on 02/15/17 09:29; Start 02/12/17 at 09:00 Fluconazole/ Sodium Chloride 50 ml @ 100 mls/hr Q24H IV Last administered on 02/13/17 15:00; Start 02/12/17 at 15:00; Stop 02/14/17 at 12:06; Status DC Insulin Detemir (Levemir) 10 units ONCE ONCE SQ Last administered on 11:12; Start 02/13/17 at 09:15; Stop 02/13/17 at 09:17; Status DC Amoxicillin/ Clavulanate Potassium (Augmentin 400-57mg/5ml Susp) 10 ml Q12HR PEG Last administered on 02/15/17 09:29; Start 02/14/17 at 10:00 Amoxicillin/ Clavulanate Potassium (Augmentin 400-57mg/5ml Susp) 10 ml Q12HR PEG ; Start 02/14/17 at 09:30; Status UNV Fluconazole (Diflucan) 100 mg DAILY PO Last administered on 02/14/17 13:46; Start 02/14/17 at 13:00; Stop 02/15/17 at 08:23; Status DC Active Scripts Active Reported [Lidocaine] 15 Ml PO Q6HRS PRN [Ondansetron] 4 Mg IV PRN Q4HRS PRN [Pepcid Suspension] 20 IV BID Duoneb 0.5-3(2.5) Mg/3 Ml (Albuterol/Ipratropium) 3 Ml Ampul.neb 3 Ml NEB PRN Q6HRS PRN Novolog (Insulin Aspart) 100 Unit/1 Ml Cartridge 0 SQ Q6HRS Vitals/I & O Vital Sign - Last 24 Hours 02/14/17 02/14/17 02/14/17 02/14/17 13:46 15:00 17:54 19:30 Temp 98.2 98.3 98.2 98.3 Pulse 86 84 86 80 Resp 18 18 B/P (MAP) 114/70 92/60 (71) 114/70 121/67 (85) Pulse Ox 98 99 O2 Delivery Room Air Room Air 02/14/17 02/14/17 02/15/17 02/15/17 20:00 23:24 00:36 03:24 Temp 98.3 98.3 98.3 98.3 Pulse 91 91 83 Resp 18 18 B/P (MAP) 113/70 (84) 113/70 128/74 (92) Pulse Ox 96 97 O2 Delivery Room Air Room Air Room Air 02/15/17 02/15/17 06:04 07:00 Temp 97.6 97.6 Pulse 83 78 Resp 16 B/P (MAP) 128/74 121/62 (81) Pulse Ox 96 O2 Delivery Room Air Nutrition Consultation Dietary Evaluation: Recommendations by RD: PPN/TPN Comments: REC continue TF via J tube: Diabetisource AC @10 ml/hr, increase 10 ml/hr q8 hrs to goal of 50 ml/hr w/100 ml flushes q6 hrs Expected Outcomes/Goals: tolerate TF at goal- met, goal ongoing Malnutrition Findings: Food and Nutrition Intake (Mod: <75% est energy req 7days Body Fat Depletion (Non Severe: Mild Depletion Weight Status: Underweight FILIPPO PERALTA MD Feb 15, 2017 11:48
[2017-03-30] MEDS ORDERED: ESCI10TA2 PO (06:54)
[2017-03-30] MEDS ORDERED: MODA100T26 PO (12:00)
== END 2017-02-15 13:20 | DRG 326 ==
LOC: OPSVCIP 06:06 → EDSTATUS 08:00 → 1 WEST ICU 14:18 → 4 NORTH 02-09 15:55
PROVIDERS: ADMIT Surgery; ATTEND Surgery
PROC: 0D1A0ZA Bypass Jejunum to Jejunum, Open Approach (ICD-10-PCS; 2017-02-07)
PROC: 0WBF0ZZ Excision of Abdominal Wall, Open Approach (ICD-10-PCS; 2017-02-07)
PROC: 0WQF0ZZ Repair Abdominal Wall, Open Approach (ICD-10-PCS; 2017-02-07)
PROC: 0DN90ZZ Release Duodenum, Open Approach (ICD-10-PCS; 2017-02-07)
PROC: 0DH673Z Insertion of Infusion Device into Stomach, Via Natural or Artificial Opening (ICD-10-PCS; 2017-02-07)
PROC: 0D160ZA Bypass Stomach to Jejunum, Open Approach (ICD-10-PCS; principal; 2017-02-07 08:00)
PROC: 30233N1 Transfusion of Nonautologous Red Blood Cells into Peripheral Vein, Percutaneous Approach (ICD-10-PCS; 2017-02-08)
PROC: 05PYX3Z Removal of Infusion Device from Upper Vein, External Approach (ICD-10-PCS; 2017-02-11)
DX: K31.1 Adult hypertrophic pyloric stenosis (principal); A41.9 Sepsis, unspecified organism; E43 Unspecified severe protein-calorie malnutrition; I82.621 Acute embolism and thrombosis of deep veins of right upper extremity; I13.0 Hypertensive heart and chronic kidney disease with heart failure and stage 1 through stage 4 chronic kidney disease, or unspecified chronic kidney disease; I50.22 Chronic systolic (congestive) heart failure; D62 Acute posthemorrhagic anemia; Z68.1 Body mass index [BMI] 19.9 or less, adult; E11.22 Type 2 diabetes mellitus with diabetic chronic kidney disease; E87.5 Hyperkalemia; K66.0 Peritoneal adhesions (postprocedural) (postinfection); K43.2 Incisional hernia without obstruction or gangrene; N18.3 Chronic kidney disease, stage 3 (moderate); E78.5 Hyperlipidemia, unspecified; Z51.5 Encounter for palliative care; H91.90 Unspecified hearing loss, unspecified ear; I25.10 Atherosclerotic heart disease of native coronary artery without angina pectoris; I80.8 Phlebitis and thrombophlebitis of other sites; K22.2 Esophageal obstruction; Z90.49 Acquired absence of other specified parts of digestive tract; Z87.11 Personal history of peptic ulcer disease; Z95.1 Presence of aortocoronary bypass graft; Z82.49 Family history of ischemic heart disease and other diseases of the circulatory system; Z83.3 Family history of diabetes mellitus
CPT/HCPCS: 36415; 71010; 74000; 80048; 80053; 80202; 81001; 82803; 82962; 83605; 85007; 85025; 85610; 85730; 86850; 86900; 86901; 86920; 87040; 87641; 88304; 88307; 88309; 88311; 88331; 93971; 94250; 94660; 94760; J0694; J1100; J1200; J1450; J1650; J1815; J2270; J2405; J2543; J2710; J3010; J3370; J3490; J7030; J7040; J7050; J7120; P9016; P9045; S0028; 92610; 97116; 97530; 97535; J2001

== ENCOUNTER → 2017-06-29 | Day surgery (SDC) | payer MEDICARE ==
[~2017-06-29] MED LIST changes: -CALC-515 PO; -CHOL500016 PO; -CIPR250T30 PO; -CYAN10005 PO; -FAMO20TA5 PO; -GLIM4TAB2 PO; +GLYCOPYRROLATE 1 MG/5 ML VIAL.; -INSU100C4 SQ; -IPRA3AMP NEB; -LIDOCAINE PO; -METF-620 PO; -ONDA4TAB7 PO; -ONDANSETRON IV; -PANT40TA5 PO; -PEPCID IV; +PROPOFOL 10 MG/ML (100ML) VIAL. IV; -[UNRECOGNIZED DRUG - OTHER] NAS
[2017-06-29 13:07] LABS: POC GLUCOSE 86 mg/dL (70-99)
== END | disposition home or self-care (01) ==
LOC: SURG 12:35
DX: K25.7 Chronic gastric ulcer without hemorrhage or perforation (principal); K29.50 Unspecified chronic gastritis without bleeding; K21.0 Gastro-esophageal reflux disease with esophagitis; E78.5 Hyperlipidemia, unspecified; I25.2 Old myocardial infarction; D64.9 Anemia, unspecified; I25.10 Atherosclerotic heart disease of native coronary artery without angina pectoris; I12.9 Hypertensive chronic kidney disease with stage 1 through stage 4 chronic kidney disease, or unspecified chronic kidney disease; E11.22 Type 2 diabetes mellitus with diabetic chronic kidney disease; N18.9 Chronic kidney disease, unspecified; Z98.890 Other specified postprocedural states; Z82.3 Family history of stroke; Z82.49 Family history of ischemic heart disease and other diseases of the circulatory system; Z87.11 Personal history of peptic ulcer disease; Z79.4 Long term (current) use of insulin; Z79.899 Other long term (current) drug therapy; Z86.718 Personal history of other venous thrombosis and embolism
CPT/HCPCS: 43239; 82962; 88305; J2704; J3490

== ENCOUNTER 2017-09-06 09:36 | Emergency (ER) | payer MEDICARE ==
[2017-09-06] MEDS ORDERED: IOHEXOL 300 MG/ML 100ML VIAL. (10:36)
[2017-09-06] MEDS ORDERED: LIDOCAINE WITH 8.4% SOD BICARB 3 ML DISP.SYRIN. (10:36)
[2017-09-06] MEDS ORDERED: CONTRAST GIVEN MC (11:30)
[2017-09-06] MEDS: LIDOCAINE WITH 8.4% SOD BICARB 3 ML DISP.SYRIN. IJ (11:30)
[2017-09-06] MEDS: IOHEXOL 300 MG/ML 100ML VIAL. IART (11:36)
== END 2017-09-06 12:42 | disposition home or self-care (01) ==
LOC: ER 12:42
DX: Z46.59 Encounter for fitting and adjustment of other gastrointestinal appliance and device (principal); E11.9 Type 2 diabetes mellitus without complications; I25.2 Old myocardial infarction; Z95.5 Presence of coronary angioplasty implant and graft
CPT/HCPCS: 49451; 49452; 99284-25; C1769; Q9967

== ENCOUNTER 2019-02-14 15:13 | Inpatient (IN) | payer MEDICARE ==
[~2019-02-14] VITALS: Ht 167.6 cm; Wt 73.5 kg
[~2019-02-14 15:13] MED LIST changes: +ASPI-612 PO; +CALC-515 PO; +CHOL500016 PO; +CIPR250T30 PO; +CYAN-25 PO; +ESCI10TA2 PO; +FAMO20TA5 PO; +GLIM4TAB4 PO; -GLYCOPYRROLATE 1 MG/5 ML VIAL.; +INSU100C4 SQ; +IPRA3AMP29 NEB; +LIDOCAINE PO; +METF10007 PO; +MODA100T26 PO; +ONDA4TAB7 PO; +ONDANSETRON IV; +PANT20TA2 PO; +PANT40TA77 PO; +PEPCID IV; -PROPOFOL 10 MG/ML (100ML) VIAL. IV; +[UNRECOGNIZED DRUG - OTHER] NAS
[2019-02-14] MEDS ORDERED: IV NORMAL SALINE 1000ML BAG 1,000 ML IV SCH ×2 (15:34→17:05)
[2019-02-14 15:51] LABS: BASO % 0 % (0-3); EOS % 0 % (0-3); HEMOGLOBIN 11.9 g/dL (13.0-17.5); LYMPH # 1.2 x10^3/uL (1.0-4.8); LYMPH % 13 % (24-48); MEAN CORPUSCULAR HEMOGLOBIN 31 pg (25-35); MEAN CORPUSCULAR HGB CONC 33 g/dL (31-37); MEAN CORPUSCULAR VOLUME 94 fL (79-100); MONO # 0.6 x10^3/uL (0.0-1.1); MONO % 7 % (0-9); NEUT # 7.8 x10^3/uL (1.8-7.7); NEUT % 80 % (31-73); PLATELET COUNT 156 x10^3/uL (140-400); RED BLOOD COUNT 3.84 x10^6/uL (4.30-5.70); RED CELL DISTRIBUTION WIDTH 15.9 % (11.5-14.5); WHITE BLOOD COUNT 9.7 x10^3/uL (4.0-11.0)
[2019-02-14 16:02] LABS: CALCIUM 7.7 mg/dL (8.5-10.1); CREATININE 2.3 mg/dL (0.7-1.3); POTASSIUM 3.8 mmol/L (3.5-5.1); PROTHROMBIN TIME PATIENT 17.6 SEC (11.7-14.0)
--- NOTE | 2019-02-14 16:05 | RAD ---
PORTABLE CHEST 1V Clinical indications: Dehydration. Vomiting bile. COMPARISON: 10/02/2017. Findings: There is a large right-sided pleural effusion occupying one half of the right hemithorax with associated compressive atelectasis or consolidative infiltrate of the right lung base. No pneumothorax is seen. Left lung field remains clear. The heart size and mediastinum are stable. IMPRESSION: Large right-sided pleural effusion. Electronically signed by: Felipe Uriostegui MD (02/14/2019 4:02 PM) [place] [id number]
[2019-02-14 16:07] LABS: ALBUMIN 1.4 g/dL (3.4-5.0); ALBUMIN/GLOBULIN RATIO 0.3 (1.0-1.7); TOTAL BILIRUBIN 1.2 mg/dL (0.2-1.0); TOTAL PROTEIN 5.5 g/dL (6.4-8.2)
[2019-02-14] MEDS ORDERED: ONDANSETRON PF 4 MG/2 ML VIAL. IV ONE (16:30)
[2019-02-14] MEDS ORDERED: IV NORMAL SALINE 1000ML BAG 1,000 ML IV ONE (16:45)
[2019-02-14] MEDS ORDERED: VANCOMYCIN 1GM IVPB FOR OMNI 250 ML IV ONE (17:00)
--- NOTE | 2019-02-14 17:05 | PHYS DOC ---
Past Medical History Past Medical History: CAD, Diabetes-Type II, [place], Renal Disease, Other Additional Past Medical Histor: ULCERS,CKD,MALNUTRITION,ASPIRATION SYNDROME,J TUBE Past Surgical History: Appendectomy, Cholecystectomy, Coronary Bypass Surgery, Other Additional Past Surgical Histo: STOMACH MESH & REMOVED Alcohol Use: Sober Drug Use: None Adult General Chief Complaint Chief Complaint: DEHYDRATION HPI HPI Patient is a 88 year old male who presents via EMS because of low blood pressure and high heartbeat. Patient is at home with his and daughter and had diarrhea for one week with generalized weakness and anorexia. Patient was seen by his primary care physician office and had blood pressure of 80/40 and heart rate of 140 and was very weak and EMS was called. He is alert and oriented at arrival to ER and denies chest pain and abdominal pain. Patient states he had a few episodes of vomiting last week. Review of Systems Review of Systems Constitutional: Denies fever or chills, reports generalized weakness [] Eyes: Denies change in visual acuity, redness, or eye pain [] HENT: Denies nasal congestion or sore throat [] Respiratory: Denies cough or shortness of breath [] Cardiovascular: No additional information not addressed in HPI [] GI: Denies abdominal pain, reports nausea, vomiting, diarrhea [] : Denies dysuria or hematuria [] Musculoskeletal: Denies back pain or joint pain [] Integument: Denies rash or skin lesions [] Neurologic: Denies headache, focal weakness or sensory changes [] Endocrine: Denies polyuria or polydipsia [] All other systems were reviewed and found to be within normal limits, except as documented in this note. Current Medications Current Medications Current Medications Medications (Trade) Dose Ordered Sig/Enrrique Start Time Stop Time Status Last Admin Dose Admin Levofloxacin/ Dextrose 150 ml @ 100 mls/hr 1X ONCE 02/14/19 16:45 02/14/19 18:14 UNV Ondansetron HCl (Zofran) 4 mg 1X ONCE 02/14/19 16:30 02/14/19 16:31 DC 02/14/19 16:09 4 MG Piperacillin Sod/ Tazobactam Sod 3.375 gm/Sodium Chloride 50 ml @ 100 mls/hr 1X ONCE 02/14/19 16:45 02/14/19 17:14 UNV Sodium Chloride 1,000 ml @ 1,000 mls/hr 1X ONCE 02/14/19 16:45 02/14/19 17:44 Vancomycin HCl 250 ml @ 250 mls/hr 1X ONCE 02/14/19 16:45 02/14/19 17:44 UNV Allergies Allergies Allergies Coded Allergies Type Severity Reaction Last Updated Verified No Known Drug Allergies 06/29/17 No Physical Exam Physical Exam Constitutional: Well developed, moderate distress, ill looking, pale and dry HENT: Normocephalic, atraumatic, dry oral mucosa. Eyes: PERRLA, EOMI, conjunctiva normal, no discharge. [] Neck: Normal range of motion, no tenderness, supple, no stridor. [] Cardiovascular: Tachycardia, no murmur [] Lungs & Thorax: Bilateral breath sounds clear to auscultation [] Abdomen: Bowel sounds normal, soft, no tenderness, no masses, no pulsatile masses. [] Skin: Dry, no erythema, no rash. [] Back: No tenderness, no CVA tenderness. [] Extremities: No tenderness, no cyanosis, no clubbing, ROM intact,. Neurologic: Alert and oriented X 3, no focal deficits noted. [] Psychologic: Affect normal, judgement normal, mood normal. [] Current Patient Data Vital Signs Vital Signs Date Time Temp Pulse Resp B/P (MAP) Pulse Ox O2 Delivery O2 Flow Rate FiO2 02/14/19 15:27 97.6 104 20 103/73 (83) 95 Room Air 97.6 Lab Values Laboratory Tests Test 02/14/19 15:40 White Blood Count 9.7 x10^3/uL (4.0-11.0) Red Blood Count 3.84 x10^6/uL (4.30-5.70) L Hemoglobin 11.9 g/dL (13.0-17.5) L Hematocrit 36.0 % (39.0-53.0) L Mean Corpuscular Volume 94 fL (79-100) Mean Corpuscular Hemoglobin 31 pg (25-35) Mean Corpuscular Hemoglobin Concent 33 g/dL (31-37) Red Cell Distribution Width 15.9 % (11.5-14.5) H Platelet Count 156 x10^3/uL (140-400) Neutrophils (%) (Auto) 80 % (31-73) H Lymphocytes (%) (Auto) 13 % (24-48) L Monocytes (%) (Auto) 7 % (0-9) Eosinophils (%) (Auto) 0 % (0-3) Basophils (%) (Auto) 0 % (0-3) Neutrophils # (Auto) 7.8 x10^3/uL (1.8-7.7) H Lymphocytes # (Auto) 1.2 x10^3/uL (1.0-4.8) Monocytes # (Auto) 0.6 x10^3/uL (0.0-1.1) Eosinophils # (Auto) 0.0 x10^3/uL (0.0-0.7) Basophils # (Auto) 0.0 x10^3/uL (0.0-0.2) Prothrombin Time 17.6 SEC (11.7-14.0) H Prothrombin Time INR 1.5 (0.8-1.1) H Sodium Level 139 mmol/L (136-145) Potassium Level 3.8 mmol/L (3.5-5.1) Chloride Level 104 mmol/L (98-107) Carbon Dioxide Level 21 mmol/L (21-32) Anion Gap 14 (6-14) Blood Urea Nitrogen 20 mg/dL (8-26) Creatinine 2.3 mg/dL (0.7-1.3) H Estimated GFR (Cockcroft-Gault) 27.0 BUN/Creatinine Ratio 9 (6-20) Glucose Level 164 mg/dL (70-99) H Lactic Acid Level 7.6 mmol/L (0.4-2.0) *H Calcium Level 7.7 mg/dL (8.5-10.1) L Total Bilirubin 1.2 mg/dL (0.2-1.0) H Aspartate Amino Transferase (AST) 233 U/L (15-37) H Alanine Aminotransferase (ALT) 52 U/L (16-63) Alkaline Phosphatase 240 U/L (46-116) H Troponin I Quantitative < 0.017 ng/mL (0.000-0.055) AH-Pws-B-Type Natriuretic Peptide 2822 pg/mL (0-449) H Total Protein 5.5 g/dL (6.4-8.2) L Albumin 1.4 g/dL (3.4-5.0) L Albumin/Globulin Ratio 0.3 (1.0-1.7) L Laboratory Tests 02/14/19 15:40 Laboratory Tests 02/14/19 15:40 EKG EKG EKG interpreted by me. EKG at 1559 showed sinus rhythm at rate of 82, multiple artifact, PVCs, abnormal left axis deviation, Q wave in anteroseptal leads, no a cute ST and T-wave elevation. Radiology/Procedures Radiology/Procedures [][facility] [address] [place] [address] IMAGING REPORT Signed PATIENT: CLAUDIO IBANEZ ACCOUNT: [id number] : 1930 LOCATION: ER AGE: 88 SEX: M EXAM STATUS: REG ER ORD. PHYSICIAN: ADRIANA NOGUERA MD REASON: dehydration. vomiting bile PROCEDURE: PORTABLE CHEST 1V PORTABLE CHEST 1V Clinical indications: Dehydration. Vomiting bile. COMPARISON: 10/02/2017. Findings: There is a large right-sided pleural effusion occupying one half of the right hemithorax with associated compressive atelectasis or consolidative infiltrate of the right lung base. No pneumothorax is seen. Left lung field remains clear. The heart size and mediastinum are stable. IMPRESSION: Large right-sided pleural effusion. Electronically signed by: Andrea Uriostegui MD (02/14/2019 4:02 PM) [facility] DICTATED and SIGNED BY: ANDREA URIOSTEGUI MD DATE: 02/14/19 1607 Course & Med Decision Making Course & Med Decision Making Pertinent Labs and Imaging studies reviewed. (See chart for details) Evaluation of patient in ER showed 88-year-old male patient with diarrhea and generalized weakness for one week and hypotension and tachycardia at his primary care physician office brought in because of dehydration. Patient treated with IV fluid and Zofran and his blood pressure increased to 112 and heart rate decreased to 80s and patient became more alert. Lactic was more than 7. Treatment for severe sepsis was a started. UA is pending. THE [facility] FOR [facility]Diam[facility] Patient requiring admission for further evaluation and treatment. Discussed with Dr. Callaway who is in agreement with admission. Discussed findings and plan with patient and family, who acknowledge understanding and agreement. Dragon Disclaimer Dragon Disclaimer This electronic medical record was generated, in whole or in part, using a voice recognition dictation system. Departure Departure Impression: Primary Impression: Severe sepsis Additional Impressions: Diarrhea Tachycardia Elevated liver function tests CHF (congestive heart failure) Anemia Hypocalcemia Renal insufficiency Hypoalbuminemia Pleural effusion Disposition: 09 ADMITTED INPATIENT (at 1650) Admitting Physician: ALIZA (Dr. Callaway accepted admission at 1649) Condition: GUARDED Referrals: BEA ZARCO MD (PCP) Critical Care Time Critical care time was 60 minutes exclusive of procedures. Date and Time of Reassessment Date: Feb 14, 2019 Time: 17:02 Fluid Challenge Is the fluid challenge complet: Yes IBW Target Volume Used: Yes BMI > 30: No Vital Signs Vital Signs: Vital Signs Date Time Temp Pulse Resp B/P (MAP) Pulse Ox O2 Delivery O2 Flow Rate FiO2 02/14/19 15:27 97.6 104 20 103/73 (83) 95 Room Air 97.6 Temperature Source: Oral Respirations Respiratory Pattern: Normal Cardiovascular Pulse Rhythm: Regular Heart: Nml S1, S2, no murmurs Lung Sounds Breath Sounds: Clear Capillary Refil Capillary Refill: Rt Hand < 3 seconds Peripheral Pulse Pulse Location: Radial Pulse Strength: Normal (2+) Pulse Assessment Method: NIBP Problem Qualifiers Additional Impressions: Diarrhea Diarrhea type: unspecified type Qualified Codes: R19.7 - Diarrhea, unspecified CHF (congestive heart failure) Heart failure type: unspecified Heart failure chronicity: unspecified Qualified Codes: I50.9 - Heart failure, unspecified Anemia Anemia type: unspecified type Qualified Codes: D64.9 - Anemia, unspecified ADRIANA NOGUERA MD Feb 14, 2019 17:05
--- NOTE | 2019-02-14 17:52 | RAD ---
CT CHEST ABDOMEN PELVIS WO Indication: Diarrhea, sepsis, pleural effusion Technique: Noncontrast CT imaging was performed of the chest, abdomen, pelvis, multiplanar reconstruction images submitted. No oral contrast was given. One or more of the following individualized dose reduction techniques were utilized for this examination: 1. Automated exposure control 2. Adjustment of the mA and/or kV according to patient size 3. Use of iterative reconstruction technique. Comparison: October 02, 2017 chest CTA, no previous abdomen pelvis exam available CHEST: Findings: There is a large right pleural effusion and mild left pleural effusion. There is compressive atelectasis greater on the right, very limited aeration of the right lower lobe. There is no pneumothorax. There has been a median sternotomy. There is coronary calcification. Ascending thoracic aorta measures about 3.7 cm. There is no pericardial fluid. There is a small left upper lobe nodule 0.4 cm image 31 series 7. There is multilevel thoracic and ankylosis. IMPRESSION: 1. There is large right pleural effusion and small left pleural effusion, significant compressive atelectasis of the right lower lobe, to a lesser degree on the left. 2. There is a tiny left upper lobe noncalcified pulmonary nodule, optional 12 month follow-up as per revised Fleischner guidelines. 3. There is coronary calcification. There has been a median sternotomy. Abdomen pelvis FINDINGS: There is some motion degradation. Accurate evaluation of the abdominal visceral organs is limited without intravenous contrast, no obvious focal abnormality of the liver or spleen. Pancreas is very atrophic and poorly visualized, calcification near the pancreatic head. There is also vascular calcification. There apparently has been cholecystectomy. There is 4.4 cm cystic focus in the right renal pelvis which could be a cyst although difficult to exclude hydronephrosis. There is no left hydronephrosis. Accurate evaluation of bowel is limited without oral contrast. Bowel is not significantly dilated. No significant free air is identified. There is moderate free fluid in the pelvis. Rectum is slightly distended. There is diffuse body wall edema. There is severe L4 compression deformity, degree of osseous retropulsion. There is severe bilateral L4-5 neural foramina compromise. There is degree of lateral recess stenosis greater on the left at L4-5. There is atherosclerotic calcification narrowing the superior mesenteric artery origin. IMPRESSION: 1. There is moderate free fluid in the pelvis. There is body wall edema. 2. Pancreas is atrophic and poorly visualized, some calcifications near the pancreatic head which could be sequela of chronic pancreatitis. 3. There is severe L4 compression deformity with osseous retropulsion, uncertain chronicity. 4. There is cystic focus in the right renal pelvis which may be a cyst although would be difficult to exclude hydronephrosis on this exam. 5. There is atherosclerotic calcification narrowing the superior mesenteric artery origin. Electronically signed by: Josh Gallego MD (02/14/2019 5:50 PM) [id number]
[2019-02-14] MEDS ORDERED: PIPERACILLIN/TAZOBACTAM 3.375 GM in IV NORMAL SALINE 50ML 50 ML IV ONE (18:00)
--- NOTE | 2019-02-14 18:55 | HP ---
ADMIT DATE: 02/14/2019 CHIEF COMPLAINT: Diarrhea, weakness, mental status change. HISTORY OF PRESENT ILLNESS: The patient is a pleasant middle-aged male, who presented with weakness, mental status change, diarrhea and when he got to the ER, he was hypotensive with pressures into the 80s. He also has a lactic acidosis of greater than 7. His creatinine is 2. We just did a CAT scan. I went over and read it myself. He has got a large right pleural effusion and a small left pleural effusion. I discussed the case with ER physician. We are going to admit the patient and consult Pulmonary, Infectious Disease and give him IV antibiotics. We will also be consulting Cardiology and Infectious Disease. PAST MEDICAL HISTORY: CAD, diabetes, myocardial infarction, chronic renal insufficiency, peptic ulcer disease, aspiration, J-tube, appendectomy, cholecystectomy, coronary artery bypass, stomach mesh and then that was removed. ALLERGIES: None. FAMILY HISTORY: Hypertension. SOCIAL HISTORY: He is retired. He does not drink, smoke or take drugs. MEDICATIONS: Reviewed, please refer to the MRAD. REVIEW OF SYSTEMS: Unable to obtain. The patient is a little confused. PHYSICAL EXAMINATION: VITALS: Within normal limits and are stable. GENERAL: No apparent distress. Alert and oriented. HEENT: Head is normocephalic, atraumatic, pupils were equally round and reactive to light and accommodation. NECK: Supple, no JVD, no thyromegaly was noted. LUNGS: Clear to auscultation in all lung mcdonnell without rhonchi or wheezing. He has decreased breath sounds on the right. HEART: RRR, S1, S2 present. Peripheral pulses intact, no obvious murmurs were noted. ABDOMEN: He has decreased bowel sounds, it is tender. EXTREMITIES: Without any cyanosis, clubbing, or edema. Pedal pulses intact, Homans sign is negative. NEUROLOGIC: He is confused and has decreased hearing. PSYCHIATRIC: Normal affect, normal mood. Stable. SKIN: Thin and frail. VASCULAR: Good capillary refill, neurovascular bundle appears to be intact. LABORATORY DATA: White count 9, hemoglobin 11.9, platelets 156. Electrolytes are normal except for a creatinine of 2.3. Lactic acid 7.6. BNP 2822. ASSESSMENT AND PLAN: Mental status change, diarrhea, acute on chronic systolic and diastolic heart failure, large right pleural effusion by my eye. We are awaiting the official report on that. An elderly male who has multiple comorbidities. The patient has been admitted. We will consult Nephrology, Cardiology, Pulmonary and Infectious Disease. IV antibiotics. Suspect we might need to have Interventional Radiology drain the pleural effusion, but we will await Pulmonary input on that. DVT prophylaxis, home meds. DNR. LONG-TERM PROGNOSIS: Guarded. SUSAN GRACE DO DR: CRIS/joshua JOB#: [id number] / [id number]
[2019-02-14 19:00] VITALS: BP 94/55
--- NOTE | 2019-02-14 19:46 | PDOC2 ---
CONSULT Date of Consult Date of Consult DATE: 02/14/19 TIME: 19:40 Reason for Consult Reason for Consult: Sepsis with abnormal CT scan findings Referring Physician Referring Physician: Cesia Identification/Chief Complaint Chief Complaint Fatigue feeling dizzy Source Source: Caregiver, Chart review, Patient History of Present Illness Reason for Visit: Patient is 88-year-old male who was taken to his primary care physician's office today was found to be hypotensive and tachycardic complained of dizziness and fatigue he also had 1 episode of emesis at the primary care office and was referred to emergency department. In the emergency department he is again hypotensive with pressure is 80/40 and tachycardic. Currently patient is resting comfortably in bed denies any abdominal pain no nausea just feeling somewhat dizzy and tired. CT scan was performed which shows large right pleural effusion abdominal contents appear to be normal with a moderate amount of pelvic fluid and a cyst or hydronephrosis of the kidney no evidence of bowel obstruction no evidence of perforation with free air Past Medical History Cardiovascular: CAD, HTN GI: Peptic Ulcer disease Endocrine: Diabetes Past Surgical History Past Surgical History: CABG, Other Family History Family History: No Significant Social History ALCOHOL: none Drugs: None Lives: with Family Current Problem List Problem List Problems Medical Problems: (1) Anemia Status: Acute (2) CHF (congestive heart failure) Status: Acute (3) Diarrhea Status: Acute (4) Elevated liver function tests Status: Acute (5) Hypoalbuminemia Status: Acute (6) Hypocalcemia Status: Acute (7) Pleural effusion Status: Acute (8) Renal insufficiency Status: Acute (9) Severe sepsis Status: Acute (10) Tachycardia Status: Acute Current Medications Current Medications Current Medications Sodium Chloride 1,000 ml @ 1,000 mls/hr Q1H IV Last administered on 02/14/19at 15:55; Start 02/14/19 at 15:34; Stop 02/14/19 at 16:33; Status DC Ondansetron HCl (Zofran) 4 mg 1X ONCE IV Last administered on 02/14/19at 16:09; Start 02/14/19 at 16:30; Stop 02/14/19 at 16:31; Status DC Sodium Chloride 1,000 ml @ 1,000 mls/hr 1X ONCE IV Last administered on 02/14/19at 17:27; Start 02/14/19 at 16:45; Stop 02/14/19 at 17:44; Status DC Piperacillin Sod/ Tazobactam Sod 3.375 gm/Sodium Chloride 50 ml @ 100 mls/hr 1X ONCE IV Last administered on 02/14/19at 17:27; Start 02/14/19 at 18:00; Stop 02/14/19 at 18:29; Status DC Vancomycin HCl 250 ml @ 250 mls/hr 1X ONCE IV Last administered on 02/14/19at 17:36; Start 02/14/19 at 17:00; Stop 02/14/19 at 17:59; Status DC Levofloxacin/ Dextrose 150 ml @ 100 mls/hr 1X ONCE IV Last administered on 02/14/19at 18:17; Start 02/14/19 at 16:45; Stop 02/14/19 at 18:14; Status DC Sodium Chloride 1,000 ml @ 150 mls/hr Q6H40M IV ; Start 02/14/19 at 17:05; Stop 02/15/19 at 17:04 Active Scripts Active Aspirin Ec (Aspirin) 81 Mg Tablet.dr 81 Mg PO [id number] 30 Days Reported Protonix (Pantoprazole Sodium) 20 Mg Tablet.dr 40 Mg PO BID Escitalopram Oxalate 10 Mg Tablet 10 Mg PO DAILY Allergies Allergies: Coded Allergies: No Known Drug Allergies (Unverified , 06/29/17) ROS General: YES: Fatigue HEENT: YES: Vertigo Gastrointestinal: Yes Diarrhea Physical Exam General: Alert, Oriented X3, Cooperative, mild distress HEENT: Atraumatic, PERRLA, EOMI Lungs: Normal air movement Heart: Regular rate, No murmurs Abdomen: Normal bowel sounds, Soft, No tenderness Extremities: No edema Skin: No significant lesion Neuro: Normal speech Vitals VITALS Vital Signs Date Time Temp Pulse Resp B/P (MAP) Pulse Ox O2 Delivery O2 Flow Rate FiO2 02/14/19 18:25 86 121/66 (84) 100 Room Air 02/14/19 15:27 97.6 20 97.6 Labs Labs Laboratory Tests Test 02/14/19 15:40 White Blood Count 9.7 x10^3/uL (4.0-11.0) Red Blood Count 3.84 x10^6/uL (4.30-5.70) Hemoglobin 11.9 g/dL (13.0-17.5) Hematocrit 36.0 % (39.0-53.0) Mean Corpuscular Volume 94 fL (79-100) Mean Corpuscular Hemoglobin 31 pg (25-35) Mean Corpuscular Hemoglobin Concent 33 g/dL (31-37) Red Cell Distribution Width 15.9 % (11.5-14.5) Platelet Count 156 x10^3/uL (140-400) Neutrophils (%) (Auto) 80 % (31-73) Lymphocytes (%) (Auto) 13 % (24-48) Monocytes (%) (Auto) 7 % (0-9) Eosinophils (%) (Auto) 0 % (0-3) Basophils (%) (Auto) 0 % (0-3) Neutrophils # (Auto) 7.8 x10^3/uL (1.8-7.7) Lymphocytes # (Auto) 1.2 x10^3/uL (1.0-4.8) Monocytes # (Auto) 0.6 x10^3/uL (0.0-1.1) Eosinophils # (Auto) 0.0 x10^3/uL (0.0-0.7) Basophils # (Auto) 0.0 x10^3/uL (0.0-0.2) Prothrombin Time 17.6 SEC (11.7-14.0) Prothromb Time International Ratio 1.5 (0.8-1.1) Sodium Level 139 mmol/L (136-145) Potassium Level 3.8 mmol/L (3.5-5.1) Chloride Level 104 mmol/L (98-107) Carbon Dioxide Level 21 mmol/L (21-32) Anion Gap 14 (6-14) Blood Urea Nitrogen 20 mg/dL (8-26) Creatinine 2.3 mg/dL (0.7-1.3) Estimated GFR (Cockcroft-Gault) 27.0 BUN/Creatinine Ratio 9 (6-20) Glucose Level 164 mg/dL (70-99) Lactic Acid Level 7.6 mmol/L (0.4-2.0) Calcium Level 7.7 mg/dL (8.5-10.1) Total Bilirubin 1.2 mg/dL (0.2-1.0) Aspartate Amino Transf (AST/SGOT) 233 U/L (15-37) Alanine Aminotransferase (ALT/SGPT) 52 U/L (16-63) Alkaline Phosphatase 240 U/L (46-116) Troponin I Quantitative < 0.017 ng/mL (0.000-0.055) OB-Vsq-C-Type Natriuretic Peptide 2822 pg/mL (0-449) Total Protein 5.5 g/dL (6.4-8.2) Albumin 1.4 g/dL (3.4-5.0) Albumin/Globulin Ratio 0.3 (1.0-1.7) Laboratory Tests Test 02/14/19 15:40 White Blood Count 9.7 x10^3/uL (4.0-11.0) Red Blood Count 3.84 x10^6/uL (4.30-5.70) Hemoglobin 11.9 g/dL (13.0-17.5) Hematocrit 36.0 % (39.0-53.0) Mean Corpuscular Volume 94 fL (79-100) Mean Corpuscular Hemoglobin 31 pg (25-35) Mean Corpuscular Hemoglobin Concent 33 g/dL (31-37) Red Cell Distribution Width 15.9 % (11.5-14.5) Platelet Count 156 x10^3/uL (140-400) Neutrophils (%) (Auto) 80 % (31-73) Lymphocytes (%) (Auto) 13 % (24-48) Monocytes (%) (Auto) 7 % (0-9) Eosinophils (%) (Auto) 0 % (0-3) Basophils (%) (Auto) 0 % (0-3) Neutrophils # (Auto) 7.8 x10^3/uL (1.8-7.7) Lymphocytes # (Auto) 1.2 x10^3/uL (1.0-4.8) Monocytes # (Auto) 0.6 x10^3/uL (0.0-1.1) Eosinophils # (Auto) 0.0 x10^3/uL (0.0-0.7) Basophils # (Auto) 0.0 x10^3/uL (0.0-0.2) Prothrombin Time 17.6 SEC (11.7-14.0) Prothromb Time International Ratio 1.5 (0.8-1.1) Sodium Level 139 mmol/L (136-145) Potassium Level 3.8 mmol/L (3.5-5.1) Chloride Level 104 mmol/L (98-107) Carbon Dioxide Level 21 mmol/L (21-32) Anion Gap 14 (6-14) Blood Urea Nitrogen 20 mg/dL (8-26) Creatinine 2.3 mg/dL (0.7-1.3) Estimated GFR (Cockcroft-Gault) 27.0 BUN/Creatinine Ratio 9 (6-20) Glucose Level 164 mg/dL (70-99) Lactic Acid Level 7.6 mmol/L (0.4-2.0) Calcium Level 7.7 mg/dL (8.5-10.1) Total Bilirubin 1.2 mg/dL (0.2-1.0) Aspartate Amino Transf (AST/SGOT) 233 U/L (15-37) Alanine Aminotransferase (ALT/SGPT) 52 U/L (16-63) Alkaline Phosphatase 240 U/L (46-116) Troponin I Quantitative < 0.017 ng/mL (0.000-0.055) QR-Sfi-I-Type Natriuretic Peptide 2822 pg/mL (0-449) Total Protein 5.5 g/dL (6.4-8.2) Albumin 1.4 g/dL (3.4-5.0) Albumin/Globulin Ratio 0.3 (1.0-1.7) Images Images CT scan is in the history of present illness Assessment/Plan Assessment/Plan 88-year-old gentleman with several days of diarrhea appears dehydrated hypotensive tachycardic appears to have improved with IV fluid Chronic renal insufficiency creatinine of 2.3 Pleural effusions etiology unknown possible source of his sepsis Hypoalbuminemia some bleeding to generalized anasarca Does not appear to have intra-abdominal catastrophe requiring surgical intervention at this time Agree with medical therapy IV hydration antibiotics NANDA ASCENCIO MD Feb 14, 2019 19:46
[2019-02-14 20:00] VITALS: BP 76/52
[2019-02-14 21:00] VITALS: BP 110/72
[2019-02-14] MEDS: ENOXAPARIN 30 MG/0.3 ML SYRINGE. SQ SCH (21:00)
[2019-02-14] MEDS ORDERED: IV NORMAL SALINE 500ML BAG 500 ML IV ONE (21:15)
[2019-02-14] MEDS: PIPERACILLIN/TAZOBACTAM 3.375 GM in IV NORMAL SALINE 50ML 50 ML IV SCH (21:40)
[2019-02-14] MEDS: NOREPINEPHRIN 8MG/250ML PREMIX 250 ML IV PRN (21:40)
[2019-02-14] MEDS: ONDANSETRON PF 4 MG/2 ML VIAL. IVP PRN (21:47)
[2019-02-14 22:00] VITALS: BP 117/78
[2019-02-14 23:00] VITALS: BP 111/64
[2019-02-15] VITALS (24 sets, daily range): BP systolic 97–141; BP diastolic 53–67
[2019-02-15 05:06] LABS: BASO % 0 % (0-3); EOS % 0 % (0-3); HEMATOCRIT 28.7 % (39.0-53.0); HEMOGLOBIN 9.8 g/dL (13.0-17.5); LYMPH # 0.7 x10^3/uL (1.0-4.8); LYMPH % 9 % (24-48); MEAN CORPUSCULAR HEMOGLOBIN 31 pg (25-35); MEAN CORPUSCULAR HGB CONC 34 g/dL (31-37); MEAN CORPUSCULAR VOLUME 91 fL (79-100); MONO # 0.5 x10^3/uL (0.0-1.1); MONO % 7 % (0-9); NEUT # 6.2 x10^3/uL (1.8-7.7); NEUT % 84 % (31-73); PLATELET COUNT 129 x10^3/uL (140-400); RED BLOOD COUNT 3.14 x10^6/uL (4.30-5.70); RED CELL DISTRIBUTION WIDTH 15.4 % (11.5-14.5); WHITE BLOOD COUNT 7.4 x10^3/uL (4.0-11.0)
[2019-02-15 05:39] LABS: CREATININE 1.8 mg/dL (0.7-1.3); GFR 35.9; POTASSIUM 3.4 mmol/L (3.5-5.1)
[2019-02-15] MEDS: PIPERACILLIN/TAZOBACTAM 3.375 GM in IV NORMAL SALINE 50ML 50 ML IV SCH ×3 (05:56→23:24)
--- NOTE | 2019-02-15 06:50 | EKG ---
[facility] [address] [place] [address] Test Date: 2019-02-14 Test Time: 15:59:56 Pat Name: CLAUDIO IBANEZ Department: Room: 111 1 Gender: M Rn Forensic: : 1930 Requested By: ADRIANA NOGUERA Order Number: [id number] Reading MD: Harrison Hanson MD Measurements Intervals [place] Rate: 82 P: MS: QRS: -39 QRSD: 104 T: 132 QT: 394 QTc: 464 Interpretive Statements atrial fibrillation pvcs NON-SPECIFIC ST/T CHANGES limb lead misplacement Electronically Signed On 02-25-2019 9:40:05 CDT by Harrison Hanson MD
[2019-02-15] MEDS ORDERED: PANTOPRAZOLE 40 MG TABLET.DR. PO SCH (07:30)
[2019-02-15 07:52] LABS: BILIRUBIN,URINE SMALL (NEG); CLARITY,URINE CLEAR; COLOR,URINE AMBER; NITRITE,URINE NEGATIVE (NEG); PROTEIN,URINE NEGATIVE (NEG-TRACE); UROBILINOGEN,URINE 0.2 mg/dL (0.2 mg/dL)
[2019-02-15] MEDS ORDERED: ASPIRIN CHEWABLE 81 MG TABLET. PO SCH (08:00)
[2019-02-15 08:01] LABS: BACTERIA,URINE FEW /HPF (0-FEW); HYALINE CASTS, URINE MODERATE /HPF; RBC,URINE 0 /HPF (0-2); SQUAMOUS EPITHELIAL CELL,UR OCC /LPF
--- NOTE | 2019-02-15 08:08 | PDOC ---
Infectious Disease Note Vital Sign Vital Signs Vital Signs Date Time Temp Pulse Resp B/P (MAP) Pulse Ox O2 Delivery O2 Flow Rate FiO2 02/15/19 07:00 75 20 112/59 (76) 100 Nasal Cannula 4.0 02/15/19 04:00 97.4 97.4 Labs Lab Laboratory Tests Test 02/14/19 15:40 02/14/19 19:05 02/15/19 04:30 02/15/19 07:40 White Blood Count 9.7 x10^3/uL (4.0-11.0) 7.4 x10^3/uL (4.0-11.0) Red Blood Count 3.84 x10^6/uL (4.30-5.70) 3.14 x10^6/uL (4.30-5.70) Hemoglobin 11.9 g/dL (13.0-17.5) 9.8 g/dL (13.0-17.5) Hematocrit 36.0 % (39.0-53.0) 28.7 % (39.0-53.0) Mean Corpuscular Volume 94 fL (79-100) 91 fL (79-100) Mean Corpuscular Hemoglobin 31 pg (25-35) 31 pg (25-35) Mean Corpuscular Hemoglobin Concent 33 g/dL (31-37) 34 g/dL (31-37) Red Cell Distribution Width 15.9 % (11.5-14.5) 15.4 % (11.5-14.5) Platelet Count 156 x10^3/uL (140-400) 129 x10^3/uL (140-400) Neutrophils (%) (Auto) 80 % (31-73) 84 % (31-73) Lymphocytes (%) (Auto) 13 % (24-48) 9 % (24-48) Monocytes (%) (Auto) 7 % (0-9) 7 % (0-9) Eosinophils (%) (Auto) 0 % (0-3) 0 % (0-3) Basophils (%) (Auto) 0 % (0-3) 0 % (0-3) Neutrophils # (Auto) 7.8 x10^3/uL (1.8-7.7) 6.2 x10^3/uL (1.8-7.7) Lymphocytes # (Auto) 1.2 x10^3/uL (1.0-4.8) 0.7 x10^3/uL (1.0-4.8) Monocytes # (Auto) 0.6 x10^3/uL (0.0-1.1) 0.5 x10^3/uL (0.0-1.1) Eosinophils # (Auto) 0.0 x10^3/uL (0.0-0.7) 0.0 x10^3/uL (0.0-0.7) Basophils # (Auto) 0.0 x10^3/uL (0.0-0.2) 0.0 x10^3/uL (0.0-0.2) Prothrombin Time 17.6 SEC (11.7-14.0) Prothromb Time International Ratio 1.5 (0.8-1.1) Sodium Level 139 mmol/L (136-145) 138 mmol/L (136-145) Potassium Level 3.8 mmol/L (3.5-5.1) 3.4 mmol/L (3.5-5.1) Chloride Level 104 mmol/L (98-107) 107 mmol/L (98-107) Carbon Dioxide Level 21 mmol/L (21-32) 22 mmol/L (21-32) Anion Gap 14 (6-14) 9 (6-14) Blood Urea Nitrogen 20 mg/dL (8-26) 20 mg/dL (8-26) Creatinine 2.3 mg/dL (0.7-1.3) 1.8 mg/dL (0.7-1.3) Estimated GFR (Cockcroft-Gault) 27.0 35.9 BUN/Creatinine Ratio 9 (6-20) Glucose Level 164 mg/dL (70-99) 157 mg/dL (70-99) Lactic Acid Level 7.6 mmol/L (0.4-2.0) 4.3 mmol/L (0.4-2.0) 1.8 mmol/L (0.4-2.0) Calcium Level 7.7 mg/dL (8.5-10.1) 7.0 mg/dL (8.5-10.1) Total Bilirubin 1.2 mg/dL (0.2-1.0) Aspartate Amino Transf (AST/SGOT) 233 U/L (15-37) Alanine Aminotransferase (ALT/SGPT) 52 U/L (16-63) Alkaline Phosphatase 240 U/L (46-116) Troponin I Quantitative < 0.017 ng/mL (0.000-0.055) PZ-Csf-J-Type Natriuretic Peptide 2822 pg/mL (0-449) Total Protein 5.5 g/dL (6.4-8.2) Albumin 1.4 g/dL (3.4-5.0) Albumin/Globulin Ratio 0.3 (1.0-1.7) Urine Collection Type Unknown Urine Color Valery Urine Clarity Clear Urine pH 5.0 Urine Specific [place] >=1.030 Urine Protein Negative mg/dL (NEG-TRACE) Urine Glucose (UA) Negative mg/dL (NEG) Urine Ketones (Stick) Negative mg/dL (NEG) Urine Blood Negative (NEG) Urine Nitrite Negative (NEG) Urine Bilirubin Small (NEG) Urine Urobilinogen Dipstick 0.2 mg/dL (0.2 mg/dL) Urine Leukocyte Esterase Negative (NEG) Urine RBC 0 /HPF (0-2) Urine WBC 1-4 /HPF (0-4) Urine Squamous Epithelial Cells Occ /LPF Urine Bacteria Few /HPF (0-FEW) Urine Hyaline Casts Moderate /HPF Urine Mucus Marked /LPF Objective Assessment pt seen, consult dictated Plan Plan of Care / HARDY OLMELI MD Feb 15, 2019 08:08
[2019-02-15] MEDS: CITALOPRAM 20 MG TABLET. PO SCH (08:43)
[2019-02-15] MEDS: ONDANSETRON PF 4 MG/2 ML VIAL. IVP PRN ×2 (08:54→15:42)
--- NOTE | 2019-02-15 09:01 | PDOC ---
SURGICAL PROGRESS NOTE Subjective Pt without c/o this AM, clinically appears improved, noted to have loose stools for several days, but none since admission. Vital Signs Vital Signs Date Time Temp Pulse Resp B/P (MAP) Pulse Ox O2 Delivery O2 Flow Rate FiO2 02/15/19 08:00 Nasal Cannula 4.0 02/15/19 07:00 75 20 112/59 (76) 100 02/15/19 04:00 97.4 97.4 I&O Intake and Output 02/15/19 07:00 Intake Total 4387.1 ml Output Total 30 ml Balance 4357.1 ml Intake Oral 180 ml IV Total 4207.1 ml Output Urine Total 0 ml Emesis 30 ml General: Alert, Cooperative, No acute distress, Other (severe ILIAMNA) Abdomen: Soft, No tenderness Labs Laboratory Tests Test 02/14/19 15:40 02/14/19 19:05 02/15/19 04:30 02/15/19 07:40 White Blood Count 9.7 x10^3/uL (4.0-11.0) 7.4 x10^3/uL (4.0-11.0) Red Blood Count 3.84 x10^6/uL (4.30-5.70) 3.14 x10^6/uL (4.30-5.70) Hemoglobin 11.9 g/dL (13.0-17.5) 9.8 g/dL (13.0-17.5) Hematocrit 36.0 % (39.0-53.0) 28.7 % (39.0-53.0) Mean Corpuscular Volume 94 fL (79-100) 91 fL (79-100) Mean Corpuscular Hemoglobin 31 pg (25-35) 31 pg (25-35) Mean Corpuscular Hemoglobin Concent 33 g/dL (31-37) 34 g/dL (31-37) Red Cell Distribution Width 15.9 % (11.5-14.5) 15.4 % (11.5-14.5) Platelet Count 156 x10^3/uL (140-400) 129 x10^3/uL (140-400) Neutrophils (%) (Auto) 80 % (31-73) 84 % (31-73) Lymphocytes (%) (Auto) 13 % (24-48) 9 % (24-48) Monocytes (%) (Auto) 7 % (0-9) 7 % (0-9) Eosinophils (%) (Auto) 0 % (0-3) 0 % (0-3) Basophils (%) (Auto) 0 % (0-3) 0 % (0-3) Neutrophils # (Auto) 7.8 x10^3/uL (1.8-7.7) 6.2 x10^3/uL (1.8-7.7) Lymphocytes # (Auto) 1.2 x10^3/uL (1.0-4.8) 0.7 x10^3/uL (1.0-4.8) Monocytes # (Auto) 0.6 x10^3/uL (0.0-1.1) 0.5 x10^3/uL (0.0-1.1) Eosinophils # (Auto) 0.0 x10^3/uL (0.0-0.7) 0.0 x10^3/uL (0.0-0.7) Basophils # (Auto) 0.0 x10^3/uL (0.0-0.2) 0.0 x10^3/uL (0.0-0.2) Prothrombin Time 17.6 SEC (11.7-14.0) Prothromb Time International Ratio 1.5 (0.8-1.1) Sodium Level 139 mmol/L (136-145) 138 mmol/L (136-145) Potassium Level 3.8 mmol/L (3.5-5.1) 3.4 mmol/L (3.5-5.1) Chloride Level 104 mmol/L (98-107) 107 mmol/L (98-107) Carbon Dioxide Level 21 mmol/L (21-32) 22 mmol/L (21-32) Anion Gap 14 (6-14) 9 (6-14) Blood Urea Nitrogen 20 mg/dL (8-26) 20 mg/dL (8-26) Creatinine 2.3 mg/dL (0.7-1.3) 1.8 mg/dL (0.7-1.3) Estimated GFR (Cockcroft-Gault) 27.0 35.9 BUN/Creatinine Ratio 9 (6-20) Glucose Level 164 mg/dL (70-99) 157 mg/dL (70-99) Lactic Acid Level 7.6 mmol/L (0.4-2.0) 4.3 mmol/L (0.4-2.0) 1.8 mmol/L (0.4-2.0) Calcium Level 7.7 mg/dL (8.5-10.1) 7.0 mg/dL (8.5-10.1) Total Bilirubin 1.2 mg/dL (0.2-1.0) Aspartate Amino Transf (AST/SGOT) 233 U/L (15-37) Alanine Aminotransferase (ALT/SGPT) 52 U/L (16-63) Alkaline Phosphatase 240 U/L (46-116) Troponin I Quantitative < 0.017 ng/mL (0.000-0.055) KU-Tyk-M-Type Natriuretic Peptide 2822 pg/mL (0-449) Total Protein 5.5 g/dL (6.4-8.2) Albumin 1.4 g/dL (3.4-5.0) Albumin/Globulin Ratio 0.3 (1.0-1.7) Urine Collection Type Unknown Urine Color Valery Urine Clarity Clear Urine pH 5.0 Urine Specific [place] >=1.030 Urine Protein Negative mg/dL (NEG-TRACE) Urine Glucose (UA) Negative mg/dL (NEG) Urine Ketones (Stick) Negative mg/dL (NEG) Urine Blood Negative (NEG) Urine Nitrite Negative (NEG) Urine Bilirubin Small (NEG) Urine Urobilinogen Dipstick 0.2 mg/dL (0.2 mg/dL) Urine Leukocyte Esterase Negative (NEG) Urine RBC 0 /HPF (0-2) Urine WBC 1-4 /HPF (0-4) Urine Squamous Epithelial Cells Occ /LPF Urine Bacteria Few /HPF (0-FEW) Urine Hyaline Casts Moderate /HPF Urine Mucus Marked /LPF Laboratory Tests Test 02/14/19 15:40 02/14/19 19:05 02/15/19 04:30 02/15/19 07:40 White Blood Count 9.7 x10^3/uL (4.0-11.0) 7.4 x10^3/uL (4.0-11.0) Red Blood Count 3.84 x10^6/uL (4.30-5.70) 3.14 x10^6/uL (4.30-5.70) Hemoglobin 11.9 g/dL (13.0-17.5) 9.8 g/dL (13.0-17.5) Hematocrit 36.0 % (39.0-53.0) 28.7 % (39.0-53.0) Mean Corpuscular Volume 94 fL (79-100) 91 fL (79-100) Mean Corpuscular Hemoglobin 31 pg (25-35) 31 pg (25-35) Mean Corpuscular Hemoglobin Concent 33 g/dL (31-37) 34 g/dL (31-37) Red Cell Distribution Width 15.9 % (11.5-14.5) 15.4 % (11.5-14.5) Platelet Count 156 x10^3/uL (140-400) 129 x10^3/uL (140-400) Neutrophils (%) (Auto) 80 % (31-73) 84 % (31-73) Lymphocytes (%) (Auto) 13 % (24-48) 9 % (24-48) Monocytes (%) (Auto) 7 % (0-9) 7 % (0-9) Eosinophils (%) (Auto) 0 % (0-3) 0 % (0-3) Basophils (%) (Auto) 0 % (0-3) 0 % (0-3) Neutrophils # (Auto) 7.8 x10^3/uL (1.8-7.7) 6.2 x10^3/uL (1.8-7.7) Lymphocytes # (Auto) 1.2 x10^3/uL (1.0-4.8) 0.7 x10^3/uL (1.0-4.8) Monocytes # (Auto) 0.6 x10^3/uL (0.0-1.1) 0.5 x10^3/uL (0.0-1.1) Eosinophils # (Auto) 0.0 x10^3/uL (0.0-0.7) 0.0 x10^3/uL (0.0-0.7) Basophils # (Auto) 0.0 x10^3/uL (0.0-0.2) 0.0 x10^3/uL (0.0-0.2) Prothrombin Time 17.6 SEC (11.7-14.0) Prothromb Time International Ratio 1.5 (0.8-1.1) Sodium Level 139 mmol/L (136-145) 138 mmol/L (136-145) Potassium Level 3.8 mmol/L (3.5-5.1) 3.4 mmol/L (3.5-5.1) Chloride Level 104 mmol/L (98-107) 107 mmol/L (98-107) Carbon Dioxide Level 21 mmol/L (21-32) 22 mmol/L (21-32) Anion Gap 14 (6-14) 9 (6-14) Blood Urea Nitrogen 20 mg/dL (8-26) 20 mg/dL (8-26) Creatinine 2.3 mg/dL (0.7-1.3) 1.8 mg/dL (0.7-1.3) Estimated GFR (Cockcroft-Gault) 27.0 35.9 BUN/Creatinine Ratio 9 (6-20) Glucose Level 164 mg/dL (70-99) 157 mg/dL (70-99) Lactic Acid Level 7.6 mmol/L (0.4-2.0) 4.3 mmol/L (0.4-2.0) 1.8 mmol/L (0.4-2.0) Calcium Level 7.7 mg/dL (8.5-10.1) 7.0 mg/dL (8.5-10.1) Total Bilirubin 1.2 mg/dL (0.2-1.0) Aspartate Amino Transf (AST/SGOT) 233 U/L (15-37) Alanine Aminotransferase (ALT/SGPT) 52 U/L (16-63) Alkaline Phosphatase 240 U/L (46-116) Troponin I Quantitative < 0.017 ng/mL (0.000-0.055) NB-Qgv-E-Type Natriuretic Peptide 2822 pg/mL (0-449) Total Protein 5.5 g/dL (6.4-8.2) Albumin 1.4 g/dL (3.4-5.0) Albumin/Globulin Ratio 0.3 (1.0-1.7) Urine Collection Type Unknown Urine Color Valery Urine Clarity Clear Urine pH 5.0 Urine Specific [place] >=1.030 Urine Protein Negative mg/dL (NEG-TRACE) Urine Glucose (UA) Negative mg/dL (NEG) Urine Ketones (Stick) Negative mg/dL (NEG) Urine Blood Negative (NEG) Urine Nitrite Negative (NEG) Urine Bilirubin Small (NEG) Urine Urobilinogen Dipstick 0.2 mg/dL (0.2 mg/dL) Urine Leukocyte Esterase Negative (NEG) Urine RBC 0 /HPF (0-2) Urine WBC 1-4 /HPF (0-4) Urine Squamous Epithelial Cells Occ /LPF Urine Bacteria Few /HPF (0-FEW) Urine Hyaline Casts Moderate /HPF Urine Mucus Marked /LPF Problem List Problems Medical Problems: (1) Anemia Status: Acute (2) CHF (congestive heart failure) Status: Acute (3) Diarrhea Status: Acute (4) Elevated liver function tests Status: Acute (5) Hypoalbuminemia Status: Acute (6) Hypocalcemia Status: Acute (7) Pleural effusion Status: Acute (8) Renal insufficiency Status: Acute (9) Severe sepsis Status: Acute (10) Tachycardia Status: Acute Assessment/Plan dehydration, fluid effusion appears improved on IV fluid resuscitation. No surgical intervention at this time. D/w pt and pt's supportive . JACK STYLES MD Feb 15, 2019 09:01
--- NOTE | 2019-02-15 09:08 | NUR ---
SS following for discharge planning. SS reviewed pt chart. Pt is from home with spouse and is currently requiring oxygen. Pt has had services with [facility] in 2018. Pt will need PT/OT evaluations when ready to assess needs for discharge. SS will continue to follow for discharge planning.
[2019-02-15] MEDS ORDERED: ALBUMIN HUMAN 25% 100 ML IV ONE (09:15)
--- NOTE | 2019-02-15 09:19 | PDOC2 ---
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 Pt is a poor historian and told me that at least in the last week he has been having watery stools. No fever or chills. He also has been feeling weak and has not been drinking well. He tries to eat and spouse sprinkles some protein in his food but mainly by description his food is high in carbs. No chest pain, palpitations or SOA. He is known for cardiomyopathy and he has refused AICD in the past. He is cachectic and has anasarca. He is laying flat without difficulty with respiration. Denies any pain. PAST MEDICAL HISTORY Cardiovascular: CAD, CHF (cardiomyopathy), Hyperlipidemia, Other (hypotension) Pulmonary: No pertinent hx CENTRAL NERVOUS SYSTEM: Other (No pertinent history) GI: GERD, Peptic Ulcer disease, Other (malnutrition) Psych: Anxiety Musculoskeletal: Osteoarthritis Renal/: Chronic renal insuff Endocrine: Diabetes (2) Dermatology: No pertinent hx PAST SURGICAL HISTORY Past Surgical History: Appendectomy, Cholecystectomy, CABG, Other (antrectomy w/ Kb-en-Y; PCI/stent) FAMILY HISTORY Family History noncontributory SOCIAL HISTORY Smoke: No ALCOHOL: none Drugs: None Lives: with Family (spouse) CURRENT MEDICATIONS CURRENT MEDICATIONS Current Medications Medications (Trade) Dose Ordered Sig/Enrrique Route PRN Reason Start Time Stop Time Status Last Admin Dose Admin Sodium Chloride 1,000 ml @ 1,000 mls/hr Q1H IV 02/14/19 15:34 02/14/19 16:33 DC 02/14/19 15:55 Ondansetron HCl (Zofran) 4 mg 1X ONCE IV 02/14/19 16:30 02/14/19 16:31 DC 02/14/19 16:09 Sodium Chloride 1,000 ml @ 1,000 mls/hr 1X ONCE IV 02/14/19 16:45 02/14/19 17:44 DC 02/14/19 17:27 Piperacillin Sod/ Tazobactam Sod 3.375 gm/Sodium Chloride 50 ml @ 100 mls/hr 1X ONCE IV 02/14/19 18:00 02/14/19 18:29 DC 02/14/19 17:27 Vancomycin HCl 250 ml @ 250 mls/hr 1X ONCE IV 02/14/19 17:00 02/14/19 17:59 DC 02/14/19 17:36 Levofloxacin/ Dextrose 150 ml @ 100 mls/hr 1X ONCE IV 02/14/19 16:45 02/14/19 18:14 DC 02/14/19 18:17 Dopamine HCl/ Dextrose 250 ml @ 10.121 mls/ hr CONT PRN IV SEE I/O RECORD 02/14/19 20:00 02/14/19 20:32 Piperacillin Sod/ Tazobactam Sod 3.375 gm/Sodium Chloride 50 ml @ 100 mls/hr Q8HRS IV 02/14/19 22:00 02/15/19 05:56 Linezolid/Dextrose 300 ml @ 300 mls/hr Q12HR IV 02/14/19 21:00 02/14/19 21:40 Enoxaparin Sodium (Lovenox 30mg Syringe) 30 mg Q24H SQ 02/14/19 21:00 02/14/19 21:00 Pantoprazole Sodium (Protonix) 40 mg BIDAC PO 02/15/19 07:30 02/15/19 08:43 Aspirin (Children'S Aspirin) 81 mg DAILYWBKFT PO 02/15/19 08:00 02/15/19 08:43 Citalopram Hydrobromide (CeleXA) 20 mg DAILY PO 02/15/19 09:00 02/15/19 08:43 Norepinephrine Bitartrate 250 ml @ 12.97 mls/ hr CONT PRN IV SEE I/O RECORD 02/14/19 21:15 02/14/19 21:40 Sodium Chloride 500 ml @ 500 mls/hr 1X ONCE IV 02/14/19 21:15 02/14/19 22:14 DC 02/14/19 21:40 Ondansetron HCl (Zofran) 4 mg PRN Q6HRS PRN IVP NAUSEA/VOMITING 02/14/19 21:30 02/15/19 08:54 ALLERGIES ALLERGIES: Coded Allergies: No Known Drug Allergies (Unverified , 3/1/18) ROS Review of System limited, poor historian, discussed with spouse PHYSICAL EXAM General: Alert, Cooperative, No acute distress, Other (cachectic) HEENT: Atraumatic, Other ([place], dry oral mucosa) Lungs: Other (basilar crackles) Heart: Regular rate (SR), Normal S1, Normal S2, No murmurs Abdomen: Soft, No tenderness Extremities: No cyanosis, Other (anasarca) Skin: No breakdown, No significant lesion, Other (pale) Neuro: Normal speech, Sensation intact Psych/Mental Status: Other (flat affect) MUSCULOSKELETAL: Osteoarthritic changes both hands VITALS/I&O VITALS/I&O: Vital Signs Date Time Temp Pulse Resp B/P (MAP) Pulse Ox O2 Delivery O2 Flow Rate FiO2 02/15/19 08:00 Nasal Cannula 4.0 02/15/19 07:00 75 20 112/59 (76) 100 02/15/19 04:00 97.4 97.4 I & O 02/14/19 02/14/19 02/15/19 15:00 23:00 07:00 Intake Total 3163.2 ml 1223.9 ml Output Total 30 ml 0 ml Balance 3133.2 ml 1223.9 ml LABS Lab: Laboratory Tests Test 02/14/19 15:40 02/14/19 19:05 02/15/19 04:30 02/15/19 07:40 White Blood Count 9.7 x10^3/uL (4.0-11.0) 7.4 x10^3/uL (4.0-11.0) Red Blood Count 3.84 x10^6/uL (4.30-5.70) L 3.14 x10^6/uL (4.30-5.70) L Hemoglobin 11.9 g/dL (13.0-17.5) L 9.8 g/dL (13.0-17.5) L Hematocrit 36.0 % (39.0-53.0) L 28.7 % (39.0-53.0) L Mean Corpuscular Volume 94 fL (79-100) 91 fL (79-100) Mean Corpuscular Hemoglobin 31 pg (25-35) 31 pg (25-35) Mean Corpuscular Hemoglobin Concent 33 g/dL (31-37) 34 g/dL (31-37) Red Cell Distribution Width 15.9 % (11.5-14.5) H 15.4 % (11.5-14.5) H Platelet Count 156 x10^3/uL (140-400) 129 x10^3/uL (140-400) L Neutrophils (%) (Auto) 80 % (31-73) H 84 % (31-73) H Lymphocytes (%) (Auto) 13 % (24-48) L 9 % (24-48) L Monocytes (%) (Auto) 7 % (0-9) 7 % (0-9) Eosinophils (%) (Auto) 0 % (0-3) 0 % (0-3) Basophils (%) (Auto) 0 % (0-3) 0 % (0-3) Neutrophils # (Auto) 7.8 x10^3/uL (1.8-7.7) H 6.2 x10^3/uL (1.8-7.7) Lymphocytes # (Auto) 1.2 x10^3/uL (1.0-4.8) 0.7 x10^3/uL (1.0-4.8) L Monocytes # (Auto) 0.6 x10^3/uL (0.0-1.1) 0.5 x10^3/uL (0.0-1.1) Eosinophils # (Auto) 0.0 x10^3/uL (0.0-0.7) 0.0 x10^3/uL (0.0-0.7) Basophils # (Auto) 0.0 x10^3/uL (0.0-0.2) 0.0 x10^3/uL (0.0-0.2) Prothrombin Time 17.6 SEC (11.7-14.0) H Prothrombin Time INR 1.5 (0.8-1.1) H Sodium Level 139 mmol/L (136-145) 138 mmol/L (136-145) Potassium Level 3.8 mmol/L (3.5-5.1) 3.4 mmol/L (3.5-5.1) L Chloride Level 104 mmol/L (98-107) 107 mmol/L (98-107) Carbon Dioxide Level 21 mmol/L (21-32) 22 mmol/L (21-32) Anion Gap 14 (6-14) 9 (6-14) Blood Urea Nitrogen 20 mg/dL (8-26) 20 mg/dL (8-26) Creatinine 2.3 mg/dL (0.7-1.3) H 1.8 mg/dL (0.7-1.3) H Estimated GFR (Cockcroft-Gault) 27.0 35.9 BUN/Creatinine Ratio 9 (6-20) Glucose Level 164 mg/dL (70-99) H 157 mg/dL (70-99) H Lactic Acid Level 7.6 mmol/L (0.4-2.0) *H 4.3 mmol/L (0.4-2.0) *H 1.8 mmol/L (0.4-2.0) Calcium Level 7.7 mg/dL (8.5-10.1) L 7.0 mg/dL (8.5-10.1) L Total Bilirubin 1.2 mg/dL (0.2-1.0) H Aspartate Amino Transferase (AST) 233 U/L (15-37) H Alanine Aminotransferase (ALT) 52 U/L (16-63) Alkaline Phosphatase 240 U/L (46-116) H Troponin I Quantitative < 0.017 ng/mL (0.000-0.055) XI-Yaw-W-Type Natriuretic Peptide 2822 pg/mL (0-449) H Total Protein 5.5 g/dL (6.4-8.2) L Albumin 1.4 g/dL (3.4-5.0) L Albumin/Globulin Ratio 0.3 (1.0-1.7) L Urine Collection Type Unknown Urine Color Valery Urine Clarity Clear Urine pH 5.0 Urine Specific [place] >=1.030 Urine Protein Negative mg/dL (NEG-TRACE) Urine Glucose (UA) Negative mg/dL (NEG) Urine Ketones (Stick) Negative mg/dL (NEG) Urine Blood Negative (NEG) Urine Nitrite Negative (NEG) Urine Bilirubin Small (NEG) Urine Urobilinogen Dipstick 0.2 mg/dL (0.2 mg/dL) Urine Leukocyte Esterase Negative (NEG) Urine RBC 0 /HPF (0-2) Urine WBC 1-4 /HPF (0-4) Urine Squamous Epithelial Cells Occ /LPF Urine Bacteria Few /HPF (0-FEW) Urine Hyaline Casts Moderate /HPF Urine Mucus Marked /LPF Laboratory Tests 02/14/19 15:40 02/15/19 04:30 Laboratory Tests 02/14/19 15:40 02/15/19 04:30 ECHOCARDIOGRAM ECHOCARDIOGRAM <Conclusion> Left ventricle systolic function is severely impaired. The Ejection Fraction is 30%. There is akinesis of the distal half of the LV with predominance in the septum, anterior wall and apex. Doppler and Color Flow revealed mild aortic regurgitation. Doppler and Color Flow revealed mild tricuspid regurgitation. There is moderate pulmonary hypertension. The PA pressure was estimated at 48 mmHg. DATE: 10/05/17 0931 HEART CATH HEART CATH CORONARY ANGIOGRAPHY: LM is a large caliber with a mid body 50% stenosis. LAD is a large caliber severely ectactic vessel with diffuse irregularities of up to 80% and a mid 100% occlusion. The distal vessel fills via a probable radial graft. D1 is a moderate caliber ectactic vessel with mid 100% occlusion. The distal vessel fills via a patent probable radial graft. LCx is a large caliber aneurysmal vessel with a proximal 80% stenosis. OM1 is a small caliber vessel with mid 80% stenosis involving the graft anastomosis. The distal vessel is seen to fill via a patent SVG. RCA is a large caliber dominant severely aneurysmal and ectactic vessel with diffuse irregularities of up to 80%. RPDA is a moderate caliber vessels with diffuse irregularities and a mid 80% stenosis. BYPASS ANGIOGRAPHY: FELIZ was not grafted. SVG to OM is patent with distal anastomotic stenosis of 80% SVG to LAD/D1 is patent without anastomotic stenosis. No evidence of graft to the RCA. Conclusion 1. Severe three vessel coronary artery disease. 2. Patent grafts to the LAD/Diag 3. Distal graft anastomosis of the OM graft. 4. Severe diffuse RCA disease. Recommendations Given patient clinical status, down trending troponin and lack of clear culprit lesion, medical therapy is recommended. DATE: 10/04/17 0936 ASSESSMENT/PLAN ASSESSMENT/PLAN 1. Metabolic acidosis: noted with 1 wk of diarrhea and poor hydration 2. Severe protein malnutrition with anasarca 3. 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 Acute on chronic systolic CHF: third spacing mostly due to malnutrition 5. Pleural effusion 6. Known hypotension and OH 7. Weakness/anorexia/cachexia 8. Chronic anemia 9. ADAM on CKD: prerenal 10. Hx of DM2 11. Hx of antrectomy w/ [id number] and PUD 12. CAD: past CABG. 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 see above C. Recommendations 1. Will likely need right side thoracentesis, will defer to pulmonary 2. TTE, TSH today 3. Presently needing low dose levophed. Discussed with RN, currently having some n/v, gentle IV hydration. Lasix PRN 4. He is not been able to tolerate CHF regimen in the past. Monitor rhythm. Dietitian consult and will have speech to evaluate. 5. Supportive care. 6. ASA. EMBER GRAY MD 02/15/19 1436: CARDIAC CONSULT ASSESSMENT/PLAN ASSESSMENT/PLAN Pt. seen and examined. Agree with above LAP CHECKER note. Septic shock. EF unchanged from prior. Stable from CV standpoint. No chest pain. Successful thoracentesis. Supportive care. Check CVP and titrate off levophed Will follow along. LUZ MCPHERSON APRN Feb 15, 2019 09:19 EMBER GRAY MD Feb 15, 2019 14:36
--- NOTE | 2019-02-15 09:43 | PDOC2 ---
CONSULT Date of Consult Date of Consult DATE: 02/15/19 TIME: 09:29 Reason for Consult Reason for Consult: CKD History of Present Illness Reason for Visit: Patient is 88-year-old CM who was taken to his primary care physician's office was found to be hypotensive and tachycardia, complained of dizziness and fatigue he also had 1 episode of emesis at the primary care office and was referred to emergency department. In the emergency pressure of 80/40 and tachycardic.Denies any abdominal pain no nausea. Currently Pt denies any complaints . Per RN Pt having diarrhea for approx past week. Perrin placed this am with UOP of [address] scan was performed which shows large right pleural effusion,moderate amount of pelvic fluid and a cyst or hydronephrosis of the kidney no evidence of bowel obstruction no evidence of perforation with free air Past Medical History Cardiovascular: CAD, CHF (cardiomyopathy), Hyperlipidemia, Other (hypotension) GI: GERD, Peptic Ulcer disease, Other (malnutrition) Psych: Anxiety Musculoskeletal: Osteoarthritis Renal/: Chronic renal insuff Endocrine: Diabetes (2) Past Surgical History Past Surgical History: Appendectomy, Cholecystectomy, CABG, Other (antrectomy w/ Kb-en-Y; PCI/stent) Family History Family History: No Significant Social History No ALCOHOL: none Drugs: None Lives: with Family (spouse) Current Problem List Problem List Problems Medical Problems: (1) Anemia Status: Acute (2) CHF (congestive heart failure) Status: Acute (3) Diarrhea Status: Acute (4) Elevated liver function tests Status: Acute (5) Hypoalbuminemia Status: Acute (6) Hypocalcemia Status: Acute (7) Pleural effusion Status: Acute (8) Renal insufficiency Status: Acute (9) Severe sepsis Status: Acute (10) Tachycardia Status: Acute Current Medications Current Medications Current Medications Sodium Chloride 1,000 ml @ 1,000 mls/hr Q1H IV Last administered on 02/14/19at 15:55; Start 02/14/19 at 15:34; Stop 02/14/19 at 16:33; Status DC Ondansetron HCl (Zofran) 4 mg 1X ONCE IV Last administered on 02/14/19at 16:09; Start 02/14/19 at 16:30; Stop 02/14/19 at 16:31; Status DC Sodium Chloride 1,000 ml @ 1,000 mls/hr 1X ONCE IV Last administered on 02/14/19at 17:27; Start 02/14/19 at 16:45; Stop 02/14/19 at 17:44; Status DC Piperacillin Sod/ Tazobactam Sod 3.375 gm/Sodium Chloride 50 ml @ 100 mls/hr 1X ONCE IV Last administered on 02/14/19at 17:27; Start 02/14/19 at 18:00; Stop 02/14/19 at 18:29; Status DC Vancomycin HCl 250 ml @ 250 mls/hr 1X ONCE IV Last administered on 02/14/19at 17:36; Start 02/14/19 at 17:00; Stop 02/14/19 at 17:59; Status DC Levofloxacin/ Dextrose 150 ml @ 100 mls/hr 1X ONCE IV Last administered on 02/14/19at 18:17; Start 02/14/19 at 16:45; Stop 02/14/19 at 18:14; Status DC Sodium Chloride 1,000 ml @ 150 mls/hr Q6H40M IV ; Start 02/14/19 at 17:05; Stop 02/14/19 at 21:10; Status DC Dopamine HCl/ Dextrose 250 ml @ 10.121 mls/ hr CONT PRN IV SEE I/O RECORD Last administered on 02/14/19at 20:32; Start 02/14/19 at 20:00 Piperacillin Sod/ Tazobactam Sod 3.375 gm/Sodium Chloride 50 ml @ 100 mls/hr Q8HRS IV Last administered on 02/15/19at 05:56; Start 02/14/19 at 22:00 Linezolid/Dextrose 300 ml @ 300 mls/hr Q12HR IV Last administered on 9at 21:40; Start 02/14/19 at 21:00 Enoxaparin Sodium (Lovenox 30mg Syringe) 30 mg Q24H SQ Last administered on 02/14/19at 21:00; Start 02/14/19 at 21:00 Sodium Chloride 1,000 ml @ 75 mls/hr [id number] IV ; Start 02/15/19 at 18:00 Pantoprazole Sodium (Protonix) 40 mg BIDAC PO Last administered on 02/15/19at 08:43; Start 02/15/19 at 07:30 Aspirin (Children'S Aspirin) 81 mg DAILYWBKFT PO Last administered on 02/15/19 08:43; Start 02/15/19 at 08:00 Citalopram Hydrobromide (CeleXA) 20 mg DAILY PO Last administered on 02/15/19at 08:43; Start 02/15/19 at 09:00 Norepinephrine Bitartrate 250 ml @ 12.97 mls/ hr CONT PRN IV SEE I/O RECORD Last administered on 02/14/19at 21:40; Start 02/14/19 at 21:15 Sodium Chloride 500 ml @ 500 mls/hr 1X ONCE IV Last administered on 02/14/19at 21:40; Start 02/14/19 at 21:15; Stop 02/14/19 at 22:14; Status DC Ondansetron HCl (Zofran) 4 mg PRN Q6HRS PRN IVP NAUSEA/VOMITING Last administered on 02/15/19at 08:54; Start 02/14/19 at 21:30 Albumin Human 100 ml @ 100 mls/hr 1X ONCE IV ; Start 02/15/19 at 09:15; Stop 02/15/19 at 10:14 Furosemide (Lasix) 20 mg 1X ONCE IVP ; Start 02/15/19 at 10:15; Stop 02/15/19 at 10:16 Active Scripts Active Aspirin Ec (Aspirin) 81 Mg Tablet. 81 Mg PO DAILYWBKFT 30 Days Reported Protonix (Pantoprazole Sodium) 20 Mg Tablet. 40 Mg PO BID Escitalopram Oxalate 10 Mg Tablet 10 Mg PO DAILY Allergies Allergies: Coded Allergies: No Known Drug Allergies (Unverified , 06/29/17) ROS Review of System Per HPI Physical Exam Physical Exam General: No acute distress,cachectic HEENT: OM dry , On O2 by NC Neck supple Lungs: CTA , decreased BS bases Heart: Regular rate , Normal S1, Normal S2, No murmurs Abdomen: Soft, No tenderness Extremities: No cyanosis, Skin: No rash Neuro: grossly normal - Perrin + Vital Signs Vital Signs Date Time Temp Pulse Resp B/P (MAP) Pulse Ox O2 Delivery O2 Flow Rate FiO2 02/15/19 08:00 Nasal Cannula 4.0 02/15/19 07:00 75 20 112/59 (76) 100 02/15/19 04:00 97.4 97.4 Assessment & Plan ADAM - Pre-renal 2/2 diarrhea, Poor PO intake Improving renal function CT - Cyst vs Hydronephrosis Rt kidney per Radiologist UA unremarkable except for hyaline casts Supportive care, Monitor, Avoid Nephrotoxins Hypokalemia- mild Replace CKD stage 3 -Baseline Renal function per [facility] records 1.4-1.7, Pleural Effusion- Rt large May need Thoracentesis Hypotension- pressors Anasarca - 2/2 Severe protein malnutrition / Severe HypoAlbuminemia 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 IV lasix x 1 per cardiology this am Weakness/anorexia/cachexia Chronic anemia DM2 Hx of antrectomy w/ Kb-en-Y and PUD Discussed with RN Labs Labs Laboratory Tests Test 02/14/19 15:40 02/14/19 19:05 02/15/19 04:30 02/15/19 07:40 White Blood Count 9.7 x10^3/uL (4.0-11.0) 7.4 x10^3/uL (4.0-11.0) Red Blood Count 3.84 x10^6/uL (4.30-5.70) 3.14 x10^6/uL (4.30-5.70) Hemoglobin 11.9 g/dL (13.0-17.5) 9.8 g/dL (13.0-17.5) Hematocrit 36.0 % (39.0-53.0) 28.7 % (39.0-53.0) Mean Corpuscular Volume 94 fL (79-100) 91 fL (79-100) Mean Corpuscular Hemoglobin 31 pg (25-35) 31 pg (25-35) Mean Corpuscular Hemoglobin Concent 33 g/dL (31-37) 34 g/dL (31-37) Red Cell Distribution Width 15.9 % (11.5-14.5) 15.4 % (11.5-14.5) Platelet Count 156 x10^3/uL (140-400) 129 x10^3/uL (140-400) Neutrophils (%) (Auto) 80 % (31-73) 84 % (31-73) Lymphocytes (%) (Auto) 13 % (24-48) 9 % (24-48) Monocytes (%) (Auto) 7 % (0-9) 7 % (0-9) Eosinophils (%) (Auto) 0 % (0-3) 0 % (0-3) Basophils (%) (Auto) 0 % (0-3) 0 % (0-3) Neutrophils # (Auto) 7.8 x10^3/uL (1.8-7.7) 6.2 x10^3/uL (1.8-7.7) Lymphocytes # (Auto) 1.2 x10^3/uL (1.0-4.8) 0.7 x10^3/uL (1.0-4.8) Monocytes # (Auto) 0.6 x10^3/uL (0.0-1.1) 0.5 x10^3/uL (0.0-1.1) Eosinophils # (Auto) 0.0 x10^3/uL (0.0-0.7) 0.0 x10^3/uL (0.0-0.7) Basophils # (Auto) 0.0 x10^3/uL (0.0-0.2) 0.0 x10^3/uL (0.0-0.2) Prothrombin Time 17.6 SEC (11.7-14.0) Prothromb Time International Ratio 1.5 (0.8-1.1) Sodium Level 139 mmol/L (136-145) 138 mmol/L (136-145) Potassium Level 3.8 mmol/L (3.5-5.1) 3.4 mmol/L (3.5-5.1) Chloride Level 104 mmol/L (98-107) 107 mmol/L (98-107) Carbon Dioxide Level 21 mmol/L (21-32) 22 mmol/L (21-32) Anion Gap 14 (6-14) 9 (6-14) Blood Urea Nitrogen 20 mg/dL (8-26) 20 mg/dL (8-26) Creatinine 2.3 mg/dL (0.7-1.3) 1.8 mg/dL (0.7-1.3) Estimated GFR (Cockcroft-Gault) 27.0 35.9 BUN/Creatinine Ratio 9 (6-20) Glucose Level 164 mg/dL (70-99) 157 mg/dL (70-99) Lactic Acid Level 7.6 mmol/L (0.4-2.0) 4.3 mmol/L (0.4-2.0) 1.8 mmol/L (0.4-2.0) Calcium Level 7.7 mg/dL (8.5-10.1) 7.0 mg/dL (8.5-10.1) Total Bilirubin 1.2 mg/dL (0.2-1.0) Aspartate Amino Transf (AST/SGOT) 233 U/L (15-37) Alanine Aminotransferase (ALT/SGPT) 52 U/L (16-63) Alkaline Phosphatase 240 U/L (46-116) Troponin I Quantitative < 0.017 ng/mL (0.000-0.055) EJ-Skd-P-Type Natriuretic Peptide 2822 pg/mL (0-449) Total Protein 5.5 g/dL (6.4-8.2) Albumin 1.4 g/dL (3.4-5.0) Albumin/Globulin Ratio 0.3 (1.0-1.7) Urine Collection Type Unknown Urine Color Valery Urine Clarity Clear Urine pH 5.0 Urine Specific [place] >=1.030 Urine Protein Negative mg/dL (NEG-TRACE) Urine Glucose (UA) Negative mg/dL (NEG) Urine Ketones (Stick) Negative mg/dL (NEG) Urine Blood Negative (NEG) Urine Nitrite Negative (NEG) Urine Bilirubin Small (NEG) Urine Urobilinogen Dipstick 0.2 mg/dL (0.2 mg/dL) Urine Leukocyte Esterase Negative (NEG) Urine RBC 0 /HPF (0-2) Urine WBC 1-4 /HPF (0-4) Urine Squamous Epithelial Cells Occ /LPF Urine Bacteria Few /HPF (0-FEW) Urine Hyaline Casts Moderate /HPF Urine Mucus Marked /LPF Laboratory Tests Test 02/14/19 15:40 02/14/19 19:05 02/15/19 04:30 02/15/19 07:40 White Blood Count 9.7 x10^3/uL (4.0-11.0) 7.4 x10^3/uL (4.0-11.0) Red Blood Count 3.84 x10^6/uL (4.30-5.70) 3.14 x10^6/uL (4.30-5.70) Hemoglobin 11.9 g/dL (13.0-17.5) 9.8 g/dL (13.0-17.5) Hematocrit 36.0 % (39.0-53.0) 28.7 % (39.0-53.0) Mean Corpuscular Volume 94 fL (79-100) 91 fL (79-100) Mean Corpuscular Hemoglobin 31 pg (25-35) 31 pg (25-35) Mean Corpuscular Hemoglobin Concent 33 g/dL (31-37) 34 g/dL (31-37) Red Cell Distribution Width 15.9 % (11.5-14.5) 15.4 % (11.5-14.5) Platelet Count 156 x10^3/uL (140-400) 129 x10^3/uL (140-400) Neutrophils (%) (Auto) 80 % (31-73) 84 % (31-73) Lymphocytes (%) (Auto) 13 % (24-48) 9 % (24-48) Monocytes (%) (Auto) 7 % (0-9) 7 % (0-9) Eosinophils (%) (Auto) 0 % (0-3) 0 % (0-3) Basophils (%) (Auto) 0 % (0-3) 0 % (0-3) Neutrophils # (Auto) 7.8 x10^3/uL (1.8-7.7) 6.2 x10^3/uL (1.8-7.7) Lymphocytes # (Auto) 1.2 x10^3/uL (1.0-4.8) 0.7 x10^3/uL (1.0-4.8) Monocytes # (Auto) 0.6 x10^3/uL (0.0-1.1) 0.5 x10^3/uL (0.0-1.1) Eosinophils # (Auto) 0.0 x10^3/uL (0.0-0.7) 0.0 x10^3/uL (0.0-0.7) Basophils # (Auto) 0.0 x10^3/uL (0.0-0.2) 0.0 x10^3/uL (0.0-0.2) Prothrombin Time 17.6 SEC (11.7-14.0) Prothromb Time International Ratio 1.5 (0.8-1.1) Sodium Level 139 mmol/L (136-145) 138 mmol/L (136-145) Potassium Level 3.8 mmol/L (3.5-5.1) 3.4 mmol/L (3.5-5.1) Chloride Level 104 mmol/L (98-107) 107 mmol/L (98-107) Carbon Dioxide Level 21 mmol/L (21-32) 22 mmol/L (21-32) Anion Gap 14 (6-14) 9 (6-14) Blood Urea Nitrogen 20 mg/dL (8-26) 20 mg/dL (8-26) Creatinine 2.3 mg/dL (0.7-1.3) 1.8 mg/dL (0.7-1.3) Estimated GFR (Cockcroft-Gault) 27.0 35.9 BUN/Creatinine Ratio 9 (6-20) Glucose Level 164 mg/dL (70-99) 157 mg/dL (70-99) Lactic Acid Level 7.6 mmol/L (0.4-2.0) 4.3 mmol/L (0.4-2.0) 1.8 mmol/L (0.4-2.0) Calcium Level 7.7 mg/dL (8.5-10.1) 7.0 mg/dL (8.5-10.1) Total Bilirubin 1.2 mg/dL (0.2-1.0) Aspartate Amino Transf (AST/SGOT) 233 U/L (15-37) Alanine Aminotransferase (ALT/SGPT) 52 U/L (16-63) Alkaline Phosphatase 240 U/L (46-116) Troponin I Quantitative < 0.017 ng/mL (0.000-0.055) RA-Shv-J-Type Natriuretic Peptide 2822 pg/mL (0-449) Total Protein 5.5 g/dL (6.4-8.2) Albumin 1.4 g/dL (3.4-5.0) Albumin/Globulin Ratio 0.3 (1.0-1.7) Urine Collection Type Unknown Urine Color Valery Urine Clarity Clear Urine pH 5.0 Urine Specific [place] >=1.030 Urine Protein Negative mg/dL (NEG-TRACE) Urine Glucose (UA) Negative mg/dL (NEG) Urine Ketones (Stick) Negative mg/dL (NEG) Urine Blood Negative (NEG) Urine Nitrite Negative (NEG) Urine Bilirubin Small (NEG) Urine Urobilinogen Dipstick 0.2 mg/dL (0.2 mg/dL) Urine Leukocyte Esterase Negative (NEG) Urine RBC 0 /HPF (0-2) Urine WBC 1-4 /HPF (0-4) Urine Squamous Epithelial Cells Occ /LPF Urine Bacteria Few /HPF (0-FEW) Urine Hyaline Casts Moderate /HPF Urine Mucus Marked /LPF Review All relevant outside records, renal labs, imaging studies, telemetry/EKG's were reviewed. Images Images CT chest and abdomen-- 1. There is large right pleural effusion and small left pleural effusion, significant compressive atelectasis of the right lower lobe, to a lesser degree on the left. 2. There is a tiny left upper lobe noncalcified pulmonary nodule, optional 12 month follow-up as per revised Fleischner guidelines. 3. There is coronary calcification. There has been a median sternotomy. 1. There is moderate free fluid in the pelvis. There is body wall edema. 2. Pancreas is atrophic and poorly visualized, some calcifications near the pancreatic head which could be sequela of chronic pancreatitis. 3. There is severe L4 compression deformity with osseous retropulsion, uncertain chronicity. 4. There is cystic focus in the right renal pelvis which may be a cyst although would be difficult to exclude hydronephrosis on this exam. 5. There is atherosclerotic calcification narrowing the superior mesenteric artery origin. DARA ROGERS MD Feb 15, 2019 09:43
--- NOTE | 2019-02-15 09:49 | NUR ---
Perrin catheter placed at 0800 for monitor of urine output in critically ill patient. Patient had 100ml of dark yellow urine out at time of placement.
--- NOTE | 2019-02-15 09:57 | RAD ---
Examination: PORTABLE CHEST 1V History: Central line placement Comparison/Correlation: 02/14/2019 portable chest x-ray Findings: Portable upright frontal view of the chest was obtained. Right internal jugular catheter, showing superior cavoatrial junction. Sternal wires and mediastinal clips are present. Heart size is borderline to mildly enlarged. No pneumothorax. Moderate size right pleural effusion is present with suggestion of adjacent atelectasis. Small left pleural effusion is present. Opacification of the left lung base is noted in may represent adjacent atelectasis. Elevation of the right humeral head is noted with spurring. Severe narrowing of the right acromiohumeral interval with remodeling of the acromion is present. Osteopenia noted. Impression: No pneumothorax. Right internal jugular catheter is present. Bilateral pleural effusions and adjacent atelectasis greater on the right noted without significant change especially considering positioning. Electronically signed by: Rey Kilgore MD (02/15/2019 9:54 AM) [facility]
[2019-02-15] MEDS ORDERED: FUROSEMIDE 20 MG/2 ML VIAL. IVP ONE (10:15)
[2019-02-15] MEDS: POTASSIUM CHLORIDE 10MEQ 100 ML IV SCH ×4 (11:54→14:53)
--- NOTE | 2019-02-15 13:45 | CARD ---
MR#: [id number] Date of Study: 02/15/2019 Ordering Physician: LUZ MCPHERSON, Referring Physician: LUZ MCPHERSON, Tech: Maddie Valero APPROVED REPORT EXAM: Two-dimensional and M-mode echocardiogram with Doppler and color Doppler. Other Information Quality : AverageHR: 68bpm Technically limited study due to body habitus. INDICATION Congestive Heart Failure Sepsis 2D DIMENSIONS RVDd2.4 (2.9-3.5cm)Left Atrium(2D)3.6 (1.6-4.0cm) IVSd1.1 (0.7-1.1cm)Aortic Root(2D)3.9 (2.0-3.7cm) LVDd4.9 (3.9-5.9cm)LVOT Diameter2.2 (1.8-2.4cm) PWd0.9 (0.7-1.1cm)LVDs2.3 (2.5-4.0cm) FS (%) 53.3 %SV95.2 ml LVEF(%)84.1 (>50%) Aortic Valve AoV Peak Alvin.109.1cm/sAoV VTI22.9cm AO Peak GR.4.8mmHgLVOT VTI 15.47cm AO Mean GR.3mmHg Mitral Valve MV E Ydfjboqb00.8cm/sMV DECEL [id number] MV A Xwsifage66.6cm/sE/A Ratio0.5 TDI Lateral E' P. V7.40cm/sMedial E' P. V4.70cm/s E/Lateral E'6.5E/Medial E'10.2 Tricuspid Valve TR P. Dpltygms002lm/sTR Peak Gr.32mmHg Pulmonary Vein S1 Xdgnmmzl36.4cm/sS2 Mbuqkdpb83.09cm/s D2 Juvtkllw85.1cm/sPVa [id number] LEFT VENTRICLE The left ventricle is normal size. There is borderline to mild concentric left ventricular hypertroph y. The systolic function is mildly to moderately impaired. The Ejection Fraction is 40-45%. There is global hypokinesis of the left ventricle. Septal motion suggestive of conduction defect. Transmitral Doppler flow pattern is Grade I-abnormal relaxation pattern. RIGHT VENTRICLE The right ventricle is normal size. There is normal right ventricular wall thickness. The right ventr icular systolic function is normal. ATRIA The left atrium size is normal. The right atrium size is normal. Interatrial septal thickening is not ed. AORTIC VALVE Not well visualized. Doppler and Color Flow revealed no significant aortic regurgitation. There is no significant aortic valvular stenosis. MITRAL VALVE The mitral valve is normal in structure and function. There is no evidence of mitral valve prolapse. There is no mitral valve stenosis. Doppler and Color-flow revealed trace to mild mitral regurgitation . TRICUSPID VALVE The tricuspid valve is normal in structure and function. Doppler and Color Flow revealed trace tricus pid regurgitation with an estimated PAP of 39 mmHg. There is no tricuspid valve stenosis. PULMONIC VALVE The pulmonic valve is not well visualized. Doppler and Color Flow revealed no pulmonic valvular regur gitation. There is no pulmonic valvular stenosis. GREAT VESSELS The aortic root is mildly enlarged. The IVC is normal in size and collapses >50% with inspiration. PERICARDIAL EFFUSION There is no evidence of significant pericardial effusion. Critical Notification Critical Value: No <Conclusion> The systolic function is mildly to moderately impaired. The Ejection Fraction is 40-45%. There is global hypokinesis of the left ventricle. Septal motion suggestive of conduction defect. Signed by : Harrison Hanson, Electronically Approved : 02/15/2019 13:44:44
--- NOTE | 2019-02-15 13:47 | PDOC2 ---
GI CONSULT Reason For Consult: N/v HPI: HPI: 88 y/o male who we've seen in the past. History is challenging - he is extremely hard of hearing, not wearing his hearing aides, and there is no family present. Per nurse and chart, sent to ER from PCP's office for diarrhea, n/v, and hypotension. Noted w/ elevated Cr and lactic acidosis. Imaging notes pleural effusions (R>L) and moderate free fluid in pelvis. Per nurse, vomited water and pills earlier, had one small stool. Says family reported he drinks a lot of sweet tea. D/w cardiology - apparently eats small amounts of oatmeal and chicken noodle soup but not much more. Possible thoracentesis today. H/o esophageal dysmotility ("disordered" on barium swallow 2016, no aspiration on videoswallow then), erosive esophagitis w/ stricture/dilation, and obstructing duodenal ulcer/stricture. S/p antrectomy w/ Kb-en-Y and J tube placement/replacement/manipulation by IR/removal. EGD for anemia (on Coumadin), coffee-ground emesis, and dark stools in 03/2017 showed multiple ulcers on intestinal side of anastomosis (path c/w ulcer w/o malignancy, also w/ Andie, no H. pylori). Fasting gastrin level was normal at that time. EGD in 06/2017 also showed ulcers (path w/ acute and chronic inflammation). S/p cholecystectomy. Imaging also noted narrowing of SMA and atrophic pancreas w/ calcifications near pancreatic head. PMH: PMH: CAD, CHF, cardiomyopathy, HLD, CKD, DM, anastomotic ulcers, rotator cuff tear arthropathy appendectomy, cholecystectomy, CABG, antrectomy w/ Kb-en-Y FH: Family History: No pertinent hx Social History: Smoke: No ALCOHOL: none Drugs: None ROS: Unable to obtain - he denies pain and says "they changed my clothes." Vitals: Vitals: Vital Signs Date Time Temp Pulse Resp B/P (MAP) Pulse Ox O2 Delivery O2 Flow Rate FiO2 02/15/19 13:00 97.6 83 16 120/66 (84) 96 Nasal Cannula 4.0 97.6 Labs: Labs: Laboratory Tests Test 02/14/19 15:40 02/14/19 19:05 02/15/19 04:30 02/15/19 07:40 White Blood Count 9.7 x10^3/uL (4.0-11.0) 7.4 x10^3/uL (4.0-11.0) Red Blood Count 3.84 x10^6/uL (4.30-5.70) 3.14 x10^6/uL (4.30-5.70) Hemoglobin 11.9 g/dL (13.0-17.5) 9.8 g/dL (13.0-17.5) Hematocrit 36.0 % (39.0-53.0) 28.7 % (39.0-53.0) Mean Corpuscular Volume 94 fL (79-100) 91 fL (79-100) Mean Corpuscular Hemoglobin 31 pg (25-35) 31 pg (25-35) Mean Corpuscular Hemoglobin Concent 33 g/dL (31-37) 34 g/dL (31-37) Red Cell Distribution Width 15.9 % (11.5-14.5) 15.4 % (11.5-14.5) Platelet Count 156 x10^3/uL (140-400) 129 x10^3/uL (140-400) Neutrophils (%) (Auto) 80 % (31-73) 84 % (31-73) Lymphocytes (%) (Auto) 13 % (24-48) 9 % (24-48) Monocytes (%) (Auto) 7 % (0-9) 7 % (0-9) Eosinophils (%) (Auto) 0 % (0-3) 0 % (0-3) Basophils (%) (Auto) 0 % (0-3) 0 % (0-3) Neutrophils # (Auto) 7.8 x10^3/uL (1.8-7.7) 6.2 x10^3/uL (1.8-7.7) Lymphocytes # (Auto) 1.2 x10^3/uL (1.0-4.8) 0.7 x10^3/uL (1.0-4.8) Monocytes # (Auto) 0.6 x10^3/uL (0.0-1.1) 0.5 x10^3/uL (0.0-1.1) Eosinophils # (Auto) 0.0 x10^3/uL (0.0-0.7) 0.0 x10^3/uL (0.0-0.7) Basophils # (Auto) 0.0 x10^3/uL (0.0-0.2) 0.0 x10^3/uL (0.0-0.2) Prothrombin Time 17.6 SEC (11.7-14.0) Prothromb Time International Ratio 1.5 (0.8-1.1) Sodium Level 139 mmol/L (136-145) 138 mmol/L (136-145) Potassium Level 3.8 mmol/L (3.5-5.1) 3.4 mmol/L (3.5-5.1) Chloride Level 104 mmol/L (98-107) 107 mmol/L (98-107) Carbon Dioxide Level 21 mmol/L (21-32) 22 mmol/L (21-32) Anion Gap 14 (6-14) 9 (6-14) Blood Urea Nitrogen 20 mg/dL (8-26) 20 mg/dL (8-26) Creatinine 2.3 mg/dL (0.7-1.3) 1.8 mg/dL (0.7-1.3) Estimated GFR (Cockcroft-Gault) 27.0 35.9 BUN/Creatinine Ratio 9 (6-20) Glucose Level 164 mg/dL (70-99) 157 mg/dL (70-99) Lactic Acid Level 7.6 mmol/L (0.4-2.0) 4.3 mmol/L (0.4-2.0) 1.8 mmol/L (0.4-2.0) Calcium Level 7.7 mg/dL (8.5-10.1) 7.0 mg/dL (8.5-10.1) Total Bilirubin 1.2 mg/dL (0.2-1.0) Aspartate Amino Transf (AST/SGOT) 233 U/L (15-37) Alanine Aminotransferase (ALT/SGPT) 52 U/L (16-63) Alkaline Phosphatase 240 U/L (46-116) Troponin I Quantitative < 0.017 ng/mL (0.000-0.055) KF-Xly-F-Type Natriuretic Peptide 2822 pg/mL (0-449) Total Protein 5.5 g/dL (6.4-8.2) Albumin 1.4 g/dL (3.4-5.0) Albumin/Globulin Ratio 0.3 (1.0-1.7) Magnesium Level 1.9 mg/dL (1.8-2.4) Urine Collection Type Unknown Urine Color Valery Urine Clarity Clear Urine pH 5.0 Urine Specific [place] >=1.030 Urine Protein Negative mg/dL (NEG-TRACE) Urine Glucose (UA) Negative mg/dL (NEG) Urine Ketones (Stick) Negative mg/dL (NEG) Urine Blood Negative (NEG) Urine Nitrite Negative (NEG) Urine Bilirubin Small (NEG) Urine Urobilinogen Dipstick 0.2 mg/dL (0.2 mg/dL) Urine Leukocyte Esterase Negative (NEG) Urine RBC 0 /HPF (0-2) Urine WBC 1-4 /HPF (0-4) Urine Squamous Epithelial Cells Occ /LPF Urine Bacteria Few /HPF (0-FEW) Urine Hyaline Casts Moderate /HPF Urine Mucus Marked /LPF Allergies: Coded Allergies: No Known Drug Allergies (Unverified , 06/29/17) Medications: Current Medications Medications (Trade) Dose Ordered Sig/Enrrique Route PRN Reason Start Time Stop Time Status Last Admin Dose Admin Sodium Chloride 1,000 ml @ 1,000 mls/hr Q1H IV 02/14/19 15:34 02/14/19 16:33 DC 02/14/19 15:55 Ondansetron HCl (Zofran) 4 mg 1X ONCE IV 02/14/19 16:30 02/14/19 16:31 DC 02/14/19 16:09 Sodium Chloride 1,000 ml @ 1,000 mls/hr 1X ONCE IV 02/14/19 16:45 02/14/19 17:44 DC 02/14/19 17:27 Piperacillin Sod/ Tazobactam Sod 3.375 gm/Sodium Chloride 50 ml @ 100 mls/hr 1X ONCE IV 02/14/19 18:00 02/14/19 18:29 DC 02/14/19 17:27 Vancomycin HCl 250 ml @ 250 mls/hr 1X ONCE IV 02/14/19 17:00 02/14/19 17:59 DC 02/14/19 17:36 Levofloxacin/ Dextrose 150 ml @ 100 mls/hr 1X ONCE IV 02/14/19 16:45 02/14/19 18:14 DC 02/14/19 18:17 Dopamine HCl/ Dextrose 250 ml @ 10.121 mls/ hr CONT PRN IV SEE I/O RECORD 02/14/19 20:00 02/14/19 20:32 Piperacillin Sod/ Tazobactam Sod 3.375 gm/Sodium Chloride 50 ml @ 100 mls/hr Q8HRS IV 02/14/19 22:00 02/15/19 05:56 Linezolid/Dextrose 300 ml @ 300 mls/hr Q12HR IV 02/14/19 21:00 02/15/19 10:37 Enoxaparin Sodium (Lovenox 30mg Syringe) 30 mg Q24H SQ 02/14/19 21:00 02/14/19 21:00 Pantoprazole Sodium (Protonix) 40 mg BIDAC PO 02/15/19 07:30 02/15/19 08:43 Aspirin (Children'S Aspirin) 81 mg DAILYWBKFT PO 02/15/19 08:00 02/15/19 09:29 DC 02/15/19 08:43 Citalopram Hydrobromide (CeleXA) 20 mg DAILY PO 02/15/19 09:00 02/15/19 08:43 Norepinephrine Bitartrate 250 ml @ 12.97 mls/ hr CONT PRN IV SEE I/O RECORD 02/14/19 21:15 02/14/19 21:40 Sodium Chloride 500 ml @ 500 mls/hr 1X ONCE IV 02/14/19 21:15 02/14/19 22:14 DC 02/14/19 21:40 Ondansetron HCl (Zofran) 4 mg PRN Q6HRS PRN IVP NAUSEA/VOMITING 02/14/19 21:30 02/15/19 08:54 Albumin Human 100 ml @ 100 mls/hr 1X ONCE IV 02/15/19 09:15 02/15/19 10:14 DC 02/15/19 10:37 Furosemide (Lasix) 20 mg 1X ONCE IVP 02/15/19 10:15 02/15/19 10:16 DC 02/15/19 11:42 Potassium Chloride/Water 100 ml @ 100 mls/hr Q1H IV 02/15/19 12:00 02/15/19 15:59 02/15/19 13:02 Imaging: Imaging: CXR Impression: No pneumothorax. Right internal jugular catheter is present. Bilateral pleural effusions and adjacent atelectasis greater on the right noted without significant change especially considering positioning. CT A/P IMPRESSION: 1. There is moderate free fluid in the pelvis. There is body wall edema. 2. Pancreas is atrophic and poorly visualized, some calcifications near the pancreatic head which could be sequela of chronic pancreatitis. 3. There is severe L4 compression deformity with osseous retropulsion, uncertain chronicity. 4. There is cystic focus in the right renal pelvis which may be a cyst although would be difficult to exclude hydronephrosis on this exam. 5. There is atherosclerotic calcification narrowing the superior mesenteric artery origin. PE: GEN: NAD HEENT: Atraumatic, PERRL LUNGS: NC 4L HEART: RRR ABD: NABS, S/ND/NT EXTREMITY: pitting edema BLE SKIN: dry skin on feet NEURO/PSYCH: awake and alert - can't hear anything I say A/P: A/P: N/v, diarrhea Hypotension, pleural effusions, anasarca Lactic acidosis, ADAM, hypoalbuminemia, chronic anemia, coagulopathy, abnormal LFTs H/o dysphagia/esophageal dysmotility H/o anastomotic ulcers S/p antrectomy w/ Kb-en-Y and J tube placement/removal S/p cholecystectomy Anemia - iron studies c/w ACD in 2018 Cardiomyopathy, CAD, DM [place] -- History very challenging - in the past abetter able to communicate with family present. Currently NPO ?for thoracentesis Agree w/ PPI - will change to IV for now. Consider Carafate when able to tolerate. ?esophagram/UGI at some point considering dysphagia and surgical history w/ n/v Stool studies. Recheck anemia parameters. Monitor Hgb, INR, and LFTs. Will check for additional records w/ our office. RAS HARRIS Feb 15, 2019 13:47
--- NOTE | 2019-02-15 14:46 | PDOC ---
PULMONARY PROGRESS NOTES Vitals Vital Signs Date Time Temp Pulse Resp B/P (MAP) Pulse Ox O2 Delivery O2 Flow Rate FiO2 02/15/19 14:00 93 16 111/61 (78) 100 Nasal Cannula 4.0 02/15/19 13:00 97.6 97.6 Lungs: Clear, Other Labs Laboratory Tests Test 02/14/19 15:40 02/14/19 19:05 02/15/19 04:30 02/15/19 07:40 White Blood Count 9.7 x10^3/uL (4.0-11.0) 7.4 x10^3/uL (4.0-11.0) Red Blood Count 3.84 x10^6/uL (4.30-5.70) 3.14 x10^6/uL (4.30-5.70) Hemoglobin 11.9 g/dL (13.0-17.5) 9.8 g/dL (13.0-17.5) Hematocrit 36.0 % (39.0-53.0) 28.7 % (39.0-53.0) Mean Corpuscular Volume 94 fL (79-100) 91 fL (79-100) Mean Corpuscular Hemoglobin 31 pg (25-35) 31 pg (25-35) Mean Corpuscular Hemoglobin Concent 33 g/dL (31-37) 34 g/dL (31-37) Red Cell Distribution Width 15.9 % (11.5-14.5) 15.4 % (11.5-14.5) Platelet Count 156 x10^3/uL (140-400) 129 x10^3/uL (140-400) Neutrophils (%) (Auto) 80 % (31-73) 84 % (31-73) Lymphocytes (%) (Auto) 13 % (24-48) 9 % (24-48) Monocytes (%) (Auto) 7 % (0-9) 7 % (0-9) Eosinophils (%) (Auto) 0 % (0-3) 0 % (0-3) Basophils (%) (Auto) 0 % (0-3) 0 % (0-3) Neutrophils # (Auto) 7.8 x10^3/uL (1.8-7.7) 6.2 x10^3/uL (1.8-7.7) Lymphocytes # (Auto) 1.2 x10^3/uL (1.0-4.8) 0.7 x10^3/uL (1.0-4.8) Monocytes # (Auto) 0.6 x10^3/uL (0.0-1.1) 0.5 x10^3/uL (0.0-1.1) Eosinophils # (Auto) 0.0 x10^3/uL (0.0-0.7) 0.0 x10^3/uL (0.0-0.7) Basophils # (Auto) 0.0 x10^3/uL (0.0-0.2) 0.0 x10^3/uL (0.0-0.2) Prothrombin Time 17.6 SEC (11.7-14.0) Prothromb Time International Ratio 1.5 (0.8-1.1) Sodium Level 139 mmol/L (136-145) 138 mmol/L (136-145) Potassium Level 3.8 mmol/L (3.5-5.1) 3.4 mmol/L (3.5-5.1) Chloride Level 104 mmol/L (98-107) 107 mmol/L (98-107) Carbon Dioxide Level 21 mmol/L (21-32) 22 mmol/L (21-32) Anion Gap 14 (6-14) 9 (6-14) Blood Urea Nitrogen 20 mg/dL (8-26) 20 mg/dL (8-26) Creatinine 2.3 mg/dL (0.7-1.3) 1.8 mg/dL (0.7-1.3) Estimated GFR (Cockcroft-Gault) 27.0 35.9 BUN/Creatinine Ratio 9 (6-20) Glucose Level 164 mg/dL (70-99) 157 mg/dL (70-99) Lactic Acid Level 7.6 mmol/L (0.4-2.0) 4.3 mmol/L (0.4-2.0) 1.8 mmol/L (0.4-2.0) Calcium Level 7.7 mg/dL (8.5-10.1) 7.0 mg/dL (8.5-10.1) Total Bilirubin 1.2 mg/dL (0.2-1.0) Aspartate Amino Transf (AST/SGOT) 233 U/L (15-37) Alanine Aminotransferase (ALT/SGPT) 52 U/L (16-63) Alkaline Phosphatase 240 U/L (46-116) Troponin I Quantitative < 0.017 ng/mL (0.000-0.055) WG-Hab-W-Type Natriuretic Peptide 2822 pg/mL (0-449) Total Protein 5.5 g/dL (6.4-8.2) Albumin 1.4 g/dL (3.4-5.0) Albumin/Globulin Ratio 0.3 (1.0-1.7) Magnesium Level 1.9 mg/dL (1.8-2.4) Iron Level 48 ug/dL (65-175) Total Iron Binding Capacity 59 ug/dL (250-450) Iron Saturation 81 % (15-34) Urine Collection Type Unknown Urine Color Valery Urine Clarity Clear Urine pH 5.0 Urine Specific [place] >=1.030 Urine Protein Negative mg/dL (NEG-TRACE) Urine Glucose (UA) Negative mg/dL (NEG) Urine Ketones (Stick) Negative mg/dL (NEG) Urine Blood Negative (NEG) Urine Nitrite Negative (NEG) Urine Bilirubin Small (NEG) Urine Urobilinogen Dipstick 0.2 mg/dL (0.2 mg/dL) Urine Leukocyte Esterase Negative (NEG) Urine RBC 0 /HPF (0-2) Urine WBC 1-4 /HPF (0-4) Urine Squamous Epithelial Cells Occ /LPF Urine Bacteria Few /HPF (0-FEW) Urine Hyaline Casts Moderate /HPF Urine Mucus Marked /LPF Laboratory Tests Test 02/14/19 15:40 02/14/19 19:05 02/15/19 04:30 02/15/19 07:40 White Blood Count 9.7 x10^3/uL (4.0-11.0) 7.4 x10^3/uL (4.0-11.0) Red Blood Count 3.84 x10^6/uL (4.30-5.70) 3.14 x10^6/uL (4.30-5.70) Hemoglobin 11.9 g/dL (13.0-17.5) 9.8 g/dL (13.0-17.5) Hematocrit 36.0 % (39.0-53.0) 28.7 % (39.0-53.0) Mean Corpuscular Volume 94 fL (79-100) 91 fL (79-100) Mean Corpuscular Hemoglobin 31 pg (25-35) 31 pg (25-35) Mean Corpuscular Hemoglobin Concent 33 g/dL (31-37) 34 g/dL (31-37) Red Cell Distribution Width 15.9 % (11.5-14.5) 15.4 % (11.5-14.5) Platelet Count 156 x10^3/uL (140-400) 129 x10^3/uL (140-400) Neutrophils (%) (Auto) 80 % (31-73) 84 % (31-73) Lymphocytes (%) (Auto) 13 % (24-48) 9 % (24-48) Monocytes (%) (Auto) 7 % (0-9) 7 % (0-9) Eosinophils (%) (Auto) 0 % (0-3) 0 % (0-3) Basophils (%) (Auto) 0 % (0-3) 0 % (0-3) Neutrophils # (Auto) 7.8 x10^3/uL (1.8-7.7) 6.2 x10^3/uL (1.8-7.7) Lymphocytes # (Auto) 1.2 x10^3/uL (1.0-4.8) 0.7 x10^3/uL (1.0-4.8) Monocytes # (Auto) 0.6 x10^3/uL (0.0-1.1) 0.5 x10^3/uL (0.0-1.1) Eosinophils # (Auto) 0.0 x10^3/uL (0.0-0.7) 0.0 x10^3/uL (0.0-0.7) Basophils # (Auto) 0.0 x10^3/uL (0.0-0.2) 0.0 x10^3/uL (0.0-0.2) Prothrombin Time 17.6 SEC (11.7-14.0) Prothromb Time International Ratio 1.5 (0.8-1.1) Sodium Level 139 mmol/L (136-145) 138 mmol/L (136-145) Potassium Level 3.8 mmol/L (3.5-5.1) 3.4 mmol/L (3.5-5.1) Chloride Level 104 mmol/L (98-107) 107 mmol/L (98-107) Carbon Dioxide Level 21 mmol/L (21-32) 22 mmol/L (21-32) Anion Gap 14 (6-14) 9 (6-14) Blood Urea Nitrogen 20 mg/dL (8-26) 20 mg/dL (8-26) Creatinine 2.3 mg/dL (0.7-1.3) 1.8 mg/dL (0.7-1.3) Estimated GFR (Cockcroft-Gault) 27.0 35.9 BUN/Creatinine Ratio 9 (6-20) Glucose Level 164 mg/dL (70-99) 157 mg/dL (70-99) Lactic Acid Level 7.6 mmol/L (0.4-2.0) 4.3 mmol/L (0.4-2.0) 1.8 mmol/L (0.4-2.0) Calcium Level 7.7 mg/dL (8.5-10.1) 7.0 mg/dL (8.5-10.1) Total Bilirubin 1.2 mg/dL (0.2-1.0) Aspartate Amino Transf (AST/SGOT) 233 U/L (15-37) Alanine Aminotransferase (ALT/SGPT) 52 U/L (16-63) Alkaline Phosphatase 240 U/L (46-116) Troponin I Quantitative < 0.017 ng/mL (0.000-0.055) IY-Kka-O-Type Natriuretic Peptide 2822 pg/mL (0-449) Total Protein 5.5 g/dL (6.4-8.2) Albumin 1.4 g/dL (3.4-5.0) Albumin/Globulin Ratio 0.3 (1.0-1.7) Magnesium Level 1.9 mg/dL (1.8-2.4) Iron Level 48 ug/dL (65-175) Total Iron Binding Capacity 59 ug/dL (250-450) Iron Saturation 81 % (15-34) Urine Collection Type Unknown Urine Color Valery Urine Clarity Clear Urine pH 5.0 Urine Specific [place] >=1.030 Urine Protein Negative mg/dL (NEG-TRACE) Urine Glucose (UA) Negative mg/dL (NEG) Urine Ketones (Stick) Negative mg/dL (NEG) Urine Blood Negative (NEG) Urine Nitrite Negative (NEG) Urine Bilirubin Small (NEG) Urine Urobilinogen Dipstick 0.2 mg/dL (0.2 mg/dL) Urine Leukocyte Esterase Negative (NEG) Urine RBC 0 /HPF (0-2) Urine WBC 1-4 /HPF (0-4) Urine Squamous Epithelial Cells Occ /LPF Urine Bacteria Few /HPF (0-FEW) Urine Hyaline Casts Moderate /HPF Urine Mucus Marked /LPF Medications Active Scripts Medications Dose Route/Sig Max Daily Dose Days Date Category Aspirin Ec (Aspirin) 81 Mg Tablet.dr 81 Mg PO DAILYWBKFT 30 10/06/17 Rx Protonix (Pantoprazole Sodium) 20 Mg Tablet.dr 40 Mg PO BID 06/29/17 Reported Escitalopram Oxalate 10 Mg Tablet 10 Mg PO DAILY 03/30/17 Reported Impression . full note dictated PLEURAL EFFUSION WILL ASK IR FOR THORACENTESIS THANKS SUMMER ROY MD Feb 15, 2019 14:46
[2019-02-15 14:59] LABS: BF CLARITY CLEAR; BF COLOR YELLOW; BF MON % 100 %; BF PMN % 0 %; BF RBC COUNT 4 /cmm (Not Established); BF SOURCE PLEURAL; BF WBC COUNT 16 /cmm (Not Established)
--- NOTE | 2019-02-15 15:23 | PDOC ---
PROGRESS NOTES Chief Complaint Chief Complaint sepsis, with hypotension, N/v, diarrhea and H/o dysphagia/esophageal dysmotility chronic systolic CHF pleural effusions, anasarca, from CAD acute renal failure severe malnutrition chronic anemia, coagulopathy, transaminitis, deaf S/p antrectomy w/ Kb-en-Y and J tube placement/removal History of Present Illness History of Present Illness still on levephed completely deaf no event vitals better family here, plan discussed, consult GI, mult other consults following Vitals Vitals Vital Signs Date Time Temp Pulse Resp B/P (MAP) Pulse Ox O2 Delivery O2 Flow Rate FiO2 02/15/19 14:00 93 16 111/61 (78) 100 Nasal Cannula 4.0 02/15/19 13:00 97.6 97.6 Physical Exam General: Alert, Cooperative, No acute distress, Other (cachectic) Heart: Regular rate (SR), Normal S1, Normal S2, No murmurs Lungs: Clear, Other Abdomen: Soft, No tenderness Extremities: No cyanosis, Other (anasarca) Skin: No breakdown, No significant lesion, Other (pale) Labs LABS Laboratory Tests Test 02/14/19 15:40 02/14/19 19:05 02/15/19 04:30 02/15/19 07:40 White Blood Count 9.7 x10^3/uL (4.0-11.0) 7.4 x10^3/uL (4.0-11.0) Red Blood Count 3.84 x10^6/uL (4.30-5.70) 3.14 x10^6/uL (4.30-5.70) Hemoglobin 11.9 g/dL (13.0-17.5) 9.8 g/dL (13.0-17.5) Hematocrit 36.0 % (39.0-53.0) 28.7 % (39.0-53.0) Mean Corpuscular Volume 94 fL (79-100) 91 fL (79-100) Mean Corpuscular Hemoglobin 31 pg (25-35) 31 pg (25-35) Mean Corpuscular Hemoglobin Concent 33 g/dL (31-37) 34 g/dL (31-37) Red Cell Distribution Width 15.9 % (11.5-14.5) 15.4 % (11.5-14.5) Platelet Count 156 x10^3/uL (140-400) 129 x10^3/uL (140-400) Neutrophils (%) (Auto) 80 % (31-73) 84 % (31-73) Lymphocytes (%) (Auto) 13 % (24-48) 9 % (24-48) Monocytes (%) (Auto) 7 % (0-9) 7 % (0-9) Eosinophils (%) (Auto) 0 % (0-3) 0 % (0-3) Basophils (%) (Auto) 0 % (0-3) 0 % (0-3) Neutrophils # (Auto) 7.8 x10^3/uL (1.8-7.7) 6.2 x10^3/uL (1.8-7.7) Lymphocytes # (Auto) 1.2 x10^3/uL (1.0-4.8) 0.7 x10^3/uL (1.0-4.8) Monocytes # (Auto) 0.6 x10^3/uL (0.0-1.1) 0.5 x10^3/uL (0.0-1.1) Eosinophils # (Auto) 0.0 x10^3/uL (0.0-0.7) 0.0 x10^3/uL (0.0-0.7) Basophils # (Auto) 0.0 x10^3/uL (0.0-0.2) 0.0 x10^3/uL (0.0-0.2) Prothrombin Time 17.6 SEC (11.7-14.0) Prothromb Time International Ratio 1.5 (0.8-1.1) Sodium Level 139 mmol/L (136-145) 138 mmol/L (136-145) Potassium Level 3.8 mmol/L (3.5-5.1) 3.4 mmol/L (3.5-5.1) Chloride Level 104 mmol/L (98-107) 107 mmol/L (98-107) Carbon Dioxide Level 21 mmol/L (21-32) 22 mmol/L (21-32) Anion Gap 14 (6-14) 9 (6-14) Blood Urea Nitrogen 20 mg/dL (8-26) 20 mg/dL (8-26) Creatinine 2.3 mg/dL (0.7-1.3) 1.8 mg/dL (0.7-1.3) Estimated GFR (Cockcroft-Gault) 27.0 35.9 BUN/Creatinine Ratio 9 (6-20) Glucose Level 164 mg/dL (70-99) 157 mg/dL (70-99) Lactic Acid Level 7.6 mmol/L (0.4-2.0) 4.3 mmol/L (0.4-2.0) 1.8 mmol/L (0.4-2.0) Calcium Level 7.7 mg/dL (8.5-10.1) 7.0 mg/dL (8.5-10.1) Total Bilirubin 1.2 mg/dL (0.2-1.0) Aspartate Amino Transf (AST/SGOT) 233 U/L (15-37) Alanine Aminotransferase (ALT/SGPT) 52 U/L (16-63) Alkaline Phosphatase 240 U/L (46-116) Troponin I Quantitative < 0.017 ng/mL (0.000-0.055) TG-Ana-W-Type Natriuretic Peptide 2822 pg/mL (0-449) Total Protein 5.5 g/dL (6.4-8.2) Albumin 1.4 g/dL (3.4-5.0) Albumin/Globulin Ratio 0.3 (1.0-1.7) Magnesium Level 1.9 mg/dL (1.8-2.4) Iron Level 48 ug/dL (65-175) Total Iron Binding Capacity 59 ug/dL (250-450) Iron Saturation 81 % (15-34) Urine Collection Type Unknown Urine Color Valery Urine Clarity Clear Urine pH 5.0 Urine Specific [place] >=1.030 Urine Protein Negative mg/dL (NEG-TRACE) Urine Glucose (UA) Negative mg/dL (NEG) Urine Ketones (Stick) Negative mg/dL (NEG) Urine Blood Negative (NEG) Urine Nitrite Negative (NEG) Urine Bilirubin Small (NEG) Urine Urobilinogen Dipstick 0.2 mg/dL (0.2 mg/dL) Urine Leukocyte Esterase Negative (NEG) Urine RBC 0 /HPF (0-2) Urine WBC 1-4 /HPF (0-4) Urine Squamous Epithelial Cells Occ /LPF Urine Bacteria Few /HPF (0-FEW) Urine Hyaline Casts Moderate /HPF Urine Mucus Marked /LPF Test 02/15/19 14:00 Body Fluid Source Pleural Body Fluid Color Yellow Body Fluid Clarity Clear Body Fluid Nucleated Cells 16 /cmm (Not Established) Body Fluid Mononuclear WBCs (%) 100 % Body Fluid Polymorphonuclear Cells 0 % Body Fluid Total RBCs Counted 4 /cmm (Not Established) Review of Systems Review of Systems nausea, unable to eat Assessment and Plan Assessmemt and Plan Problems Medical Problems: (1) Anemia Status: Acute (2) CHF (congestive heart failure) Status: Acute (3) Diarrhea Status: Acute (4) Elevated liver function tests Status: Acute (5) Hypoalbuminemia Status: Acute (6) Hypocalcemia Status: Acute (7) Pleural effusion Status: Acute (8) Renal insufficiency Status: Acute (9) Severe sepsis Status: Acute (10) Tachycardia Status: Acute Comment Review of Relevant I have reviewed the following items sukhwinder (where applicable) has been applied. Labs Laboratory Tests Test 02/14/19 15:40 02/14/19 19:05 02/15/19 04:30 02/15/19 07:40 White Blood Count 9.7 x10^3/uL (4.0-11.0) 7.4 x10^3/uL (4.0-11.0) Red Blood Count 3.84 x10^6/uL (4.30-5.70) 3.14 x10^6/uL (4.30-5.70) Hemoglobin 11.9 g/dL (13.0-17.5) 9.8 g/dL (13.0-17.5) Hematocrit 36.0 % (39.0-53.0) 28.7 % (39.0-53.0) Mean Corpuscular Volume 94 fL (79-100) 91 fL (79-100) Mean Corpuscular Hemoglobin 31 pg (25-35) 31 pg (25-35) Mean Corpuscular Hemoglobin Concent 33 g/dL (31-37) 34 g/dL (31-37) Red Cell Distribution Width 15.9 % (11.5-14.5) 15.4 % (11.5-14.5) Platelet Count 156 x10^3/uL (140-400) 129 x10^3/uL (140-400) Neutrophils (%) (Auto) 80 % (31-73) 84 % (31-73) Lymphocytes (%) (Auto) 13 % (24-48) 9 % (24-48) Monocytes (%) (Auto) 7 % (0-9) 7 % (0-9) Eosinophils (%) (Auto) 0 % (0-3) 0 % (0-3) Basophils (%) (Auto) 0 % (0-3) 0 % (0-3) Neutrophils # (Auto) 7.8 x10^3/uL (1.8-7.7) 6.2 x10^3/uL (1.8-7.7) Lymphocytes # (Auto) 1.2 x10^3/uL (1.0-4.8) 0.7 x10^3/uL (1.0-4.8) Monocytes # (Auto) 0.6 x10^3/uL (0.0-1.1) 0.5 x10^3/uL (0.0-1.1) Eosinophils # (Auto) 0.0 x10^3/uL (0.0-0.7) 0.0 x10^3/uL (0.0-0.7) Basophils # (Auto) 0.0 x10^3/uL (0.0-0.2) 0.0 x10^3/uL (0.0-0.2) Prothrombin Time 17.6 SEC (11.7-14.0) Prothromb Time International Ratio 1.5 (0.8-1.1) Sodium Level 139 mmol/L (136-145) 138 mmol/L (136-145) Potassium Level 3.8 mmol/L (3.5-5.1) 3.4 mmol/L (3.5-5.1) Chloride Level 104 mmol/L (98-107) 107 mmol/L (98-107) Carbon Dioxide Level 21 mmol/L (21-32) 22 mmol/L (21-32) Anion Gap 14 (6-14) 9 (6-14) Blood Urea Nitrogen 20 mg/dL (8-26) 20 mg/dL (8-26) Creatinine 2.3 mg/dL (0.7-1.3) 1.8 mg/dL (0.7-1.3) Estimated GFR (Cockcroft-Gault) 27.0 35.9 BUN/Creatinine Ratio 9 (6-20) Glucose Level 164 mg/dL (70-99) 157 mg/dL (70-99) Lactic Acid Level 7.6 mmol/L (0.4-2.0) 4.3 mmol/L (0.4-2.0) 1.8 mmol/L (0.4-2.0) Calcium Level 7.7 mg/dL (8.5-10.1) 7.0 mg/dL (8.5-10.1) Total Bilirubin 1.2 mg/dL (0.2-1.0) Aspartate Amino Transf (AST/SGOT) 233 U/L (15-37) Alanine Aminotransferase (ALT/SGPT) 52 U/L (16-63) Alkaline Phosphatase 240 U/L (46-116) Troponin I Quantitative < 0.017 ng/mL (0.000-0.055) LJ-Flu-T-Type Natriuretic Peptide 2822 pg/mL (0-449) Total Protein 5.5 g/dL (6.4-8.2) Albumin 1.4 g/dL (3.4-5.0) Albumin/Globulin Ratio 0.3 (1.0-1.7) Magnesium Level 1.9 mg/dL (1.8-2.4) Iron Level 48 ug/dL (65-175) Total Iron Binding Capacity 59 ug/dL (250-450) Iron Saturation 81 % (15-34) Urine Collection Type Unknown Urine Color Valery Urine Clarity Clear Urine pH 5.0 Urine Specific [place] >=1.030 Urine Protein Negative mg/dL (NEG-TRACE) Urine Glucose (UA) Negative mg/dL (NEG) Urine Ketones (Stick) Negative mg/dL (NEG) Urine Blood Negative (NEG) Urine Nitrite Negative (NEG) Urine Bilirubin Small (NEG) Urine Urobilinogen Dipstick 0.2 mg/dL (0.2 mg/dL) Urine Leukocyte Esterase Negative (NEG) Urine RBC 0 /HPF (0-2) Urine WBC 1-4 /HPF (0-4) Urine Squamous Epithelial Cells Occ /LPF Urine Bacteria Few /HPF (0-FEW) Urine Hyaline Casts Moderate /HPF Urine Mucus Marked /LPF Test 02/15/19 14:00 Body Fluid Source Pleural Body Fluid Color Yellow Body Fluid Clarity Clear Body Fluid Nucleated Cells 16 /cmm (Not Established) Body Fluid Mononuclear WBCs (%) 100 % Body Fluid Polymorphonuclear Cells 0 % Body Fluid Total RBCs Counted 4 /cmm (Not Established) Laboratory Tests Test 02/14/19 15:40 02/14/19 19:05 02/15/19 04:30 02/15/19 07:40 White Blood Count 9.7 x10^3/uL (4.0-11.0) 7.4 x10^3/uL (4.0-11.0) Red Blood Count 3.84 x10^6/uL (4.30-5.70) 3.14 x10^6/uL (4.30-5.70) Hemoglobin 11.9 g/dL (13.0-17.5) 9.8 g/dL (13.0-17.5) Hematocrit 36.0 % (39.0-53.0) 28.7 % (39.0-53.0) Mean Corpuscular Volume 94 fL (79-100) 91 fL (79-100) Mean Corpuscular Hemoglobin 31 pg (25-35) 31 pg (25-35) Mean Corpuscular Hemoglobin Concent 33 g/dL (31-37) 34 g/dL (31-37) Red Cell Distribution Width 15.9 % (11.5-14.5) 15.4 % (11.5-14.5) Platelet Count 156 x10^3/uL (140-400) 129 x10^3/uL (140-400) Neutrophils (%) (Auto) 80 % (31-73) 84 % (31-73) Lymphocytes (%) (Auto) 13 % (24-48) 9 % (24-48) Monocytes (%) (Auto) 7 % (0-9) 7 % (0-9) Eosinophils (%) (Auto) 0 % (0-3) 0 % (0-3) Basophils (%) (Auto) 0 % (0-3) 0 % (0-3) Neutrophils # (Auto) 7.8 x10^3/uL (1.8-7.7) 6.2 x10^3/uL (1.8-7.7) Lymphocytes # (Auto) 1.2 x10^3/uL (1.0-4.8) 0.7 x10^3/uL (1.0-4.8) Monocytes # (Auto) 0.6 x10^3/uL (0.0-1.1) 0.5 x10^3/uL (0.0-1.1) Eosinophils # (Auto) 0.0 x10^3/uL (0.0-0.7) 0.0 x10^3/uL (0.0-0.7) Basophils # (Auto) 0.0 x10^3/uL (0.0-0.2) 0.0 x10^3/uL (0.0-0.2) Prothrombin Time 17.6 SEC (11.7-14.0) Prothromb Time International Ratio 1.5 (0.8-1.1) Sodium Level 139 mmol/L (136-145) 138 mmol/L (136-145) Potassium Level 3.8 mmol/L (3.5-5.1) 3.4 mmol/L (3.5-5.1) Chloride Level 104 mmol/L (98-107) 107 mmol/L (98-107) Carbon Dioxide Level 21 mmol/L (21-32) 22 mmol/L (21-32) Anion Gap 14 (6-14) 9 (6-14) Blood Urea Nitrogen 20 mg/dL (8-26) 20 mg/dL (8-26) Creatinine 2.3 mg/dL (0.7-1.3) 1.8 mg/dL (0.7-1.3) Estimated GFR (Cockcroft-Gault) 27.0 35.9 BUN/Creatinine Ratio 9 (6-20) Glucose Level 164 mg/dL (70-99) 157 mg/dL (70-99) Lactic Acid Level 7.6 mmol/L (0.4-2.0) 4.3 mmol/L (0.4-2.0) 1.8 mmol/L (0.4-2.0) Calcium Level 7.7 mg/dL (8.5-10.1) 7.0 mg/dL (8.5-10.1) Total Bilirubin 1.2 mg/dL (0.2-1.0) Aspartate Amino Transf (AST/SGOT) 233 U/L (15-37) Alanine Aminotransferase (ALT/SGPT) 52 U/L (16-63) Alkaline Phosphatase 240 U/L (46-116) Troponin I Quantitative < 0.017 ng/mL (0.000-0.055) FM-Xog-J-Type Natriuretic Peptide 2822 pg/mL (0-449) Total Protein 5.5 g/dL (6.4-8.2) Albumin 1.4 g/dL (3.4-5.0) Albumin/Globulin Ratio 0.3 (1.0-1.7) Magnesium Level 1.9 mg/dL (1.8-2.4) Iron Level 48 ug/dL (65-175) Total Iron Binding Capacity 59 ug/dL (250-450) Iron Saturation 81 % (15-34) Urine Collection Type Unknown Urine Color Valery Urine Clarity Clear Urine pH 5.0 Urine Specific [place] >=1.030 Urine Protein Negative mg/dL (NEG-TRACE) Urine Glucose (UA) Negative mg/dL (NEG) Urine Ketones (Stick) Negative mg/dL (NEG) Urine Blood Negative (NEG) Urine Nitrite Negative (NEG) Urine Bilirubin Small (NEG) Urine Urobilinogen Dipstick 0.2 mg/dL (0.2 mg/dL) Urine Leukocyte Esterase Negative (NEG) Urine RBC 0 /HPF (0-2) Urine WBC 1-4 /HPF (0-4) Urine Squamous Epithelial Cells Occ /LPF Urine Bacteria Few /HPF (0-FEW) Urine Hyaline Casts Moderate /HPF Urine Mucus Marked /LPF Test 02/15/19 14:00 Body Fluid Source Pleural Body Fluid Color Yellow Body Fluid Clarity Clear Body Fluid Nucleated Cells 16 /cmm (Not Established) Body Fluid Mononuclear WBCs (%) 100 % Body Fluid Polymorphonuclear Cells 0 % Body Fluid Total RBCs Counted 4 /cmm (Not Established) Medications Current Medications Sodium Chloride 1,000 ml @ 1,000 mls/hr Q1H IV Last administered on 02/14/19at 15:55; Start 02/14/19 at 15:34; Stop 02/14/19 at 16:33; Status DC Ondansetron HCl (Zofran) 4 mg 1X ONCE IV Last administered on 02/14/19at 16:09; Start 02/14/19 at 16:30; Stop 02/14/19 at 16:31; Status DC Sodium Chloride 1,000 ml @ 1,000 mls/hr 1X ONCE IV Last administered on 02/14/19at 17:27; Start 02/14/19 at 16:45; Stop 02/14/19 at 17:44; Status DC Piperacillin Sod/ Tazobactam Sod 3.375 gm/Sodium Chloride 50 ml @ 100 mls/hr 1X ONCE IV Last administered on 02/14/19at 17:27; Start 02/14/19 at 18:00; Stop 02/14/19 at 18:29; Status DC Vancomycin HCl 250 ml @ 250 mls/hr 1X ONCE IV Last administered on 02/14/19at 17:36; Start 02/14/19 at 17:00; Stop 02/14/19 at 17:59; Status DC Levofloxacin/ Dextrose 150 ml @ 100 mls/hr 1X ONCE IV Last administered on 02/14/19at 18:17; Start 02/14/19 at 16:45; Stop 02/14/19 at 18:14; Status DC Sodium Chloride 1,000 ml @ 150 mls/hr Q6H40M IV ; Start 02/14/19 at 17:05; Stop 02/14/19 at 21:10; Status DC Dopamine HCl/ Dextrose 250 ml @ 10.121 mls/ hr CONT PRN IV SEE I/O RECORD Last administered on 02/14/19at 20:32; Start 02/14/19 at 20:00 Piperacillin Sod/ Tazobactam Sod 3.375 gm/Sodium Chloride 50 ml @ 100 mls/hr Q8HRS IV Last administered on 02/15/19at 14:09; Start 02/14/19 at 22:00 Linezolid/Dextrose 300 ml @ 300 mls/hr Q12HR IV Last administered on 02/15/19at 10:37; Start 02/14/19 at 21:00 Enoxaparin Sodium (Lovenox 30mg Syringe) 30 mg Q24H SQ Last administered on 02/14/19at 21:00; Start 02/14/19 at 21:00 Sodium Chloride 1,000 ml @ 75 mls/hr [id number] IV ; Start 02/15/19 at 18:00 Pantoprazole Sodium (Protonix) 40 mg BIDAC PO Last administered on 02/15/19 08:43; Start 02/15/19 at 07:30; Stop 02/15/19 at 13:49; Status DC Aspirin (Children'S Aspirin) 81 mg DAILYWBKFT PO Last administered on 02/15/19at 08:43; Start 02/15/19 at 08:00; Stop 02/15/19 at 09:29; Status DC Citalopram Hydrobromide (CeleXA) 20 mg DAILY PO Last administered on 02/15/19at 08:43; Start 02/15/19 at 09:00 Norepinephrine Bitartrate 250 ml @ 12.97 mls/ hr CONT PRN IV SEE I/O RECORD Last administered on 02/14/19 21:40; Start 02/14/19 at 21:15 Sodium Chloride 500 ml @ 500 mls/hr 1X ONCE IV Last administered on 02/14/19at 21:40; Start 02/14/19 at 21:15; Stop 02/14/19 at 22:14; Status DC Ondansetron HCl (Zofran) 4 mg PRN Q6HRS PRN IVP NAUSEA/VOMITING Last administered on 02/15/19 08:54; Start 02/14/19 at 21:30 Albumin Human 100 ml @ 100 mls/hr 1X ONCE IV Last administered on 02/15/19at 10:37; Start 02/15/19 at 09:15; Stop 02/15/19 at 10:14; Status DC Furosemide (Lasix) 20 mg 1X ONCE IVP Last administered on 02/15/19at 11:42; Start 02/15/19 at 10:15; Stop 02/15/19 at 10:16; Status DC Aspirin (Ecotrin) 81 mg DAILYWBKFT PO ; Start 02/16/19 at 08:00 Potassium Chloride/Water 100 ml @ 100 mls/hr Q1H IV Last administered on 02/15/19at 14:53; Start 02/15/19 at 12:00; Stop 02/15/19 at 15:59 Lactobacillus Rhamnosus (Culturelle) 1 cap BID PO ; Start 02/15/19 at 21:00 Pantoprazole Sodium (PROTONIX VIAL for IV PUSH) 40 mg BIDAC IVP ; Start 02/15/19 at 16:30 Active Scripts Active Aspirin Ec (Aspirin) 81 Mg Tablet.dr 81 Mg PO DAILYWBKFT 30 Days Reported Protonix (Pantoprazole Sodium) 20 Mg Tablet.dr 40 Mg PO BID Escitalopram Oxalate 10 Mg Tablet 10 Mg PO DAILY Vitals/I & O Vital Sign - Last 24 Hours 02/14/19 02/14/19 02/14/19 02/14/19 15:27 16:02 16:32 17:02 Temp 97.6 97.6 Pulse 104 82 108 80 Resp 20 B/P (MAP) 103/73 (83) 117/64 (81) 122/59 (80) 118/61 (80) Pulse Ox 95 98 100 O2 Delivery Room Air Room Air Room Air Room Air 02/14/19 02/14/19 02/14/19 02/14/19 17:25 17:55 18:25 19:00 Temp 97.4 97.4 Pulse 76 86 88 Resp 18 B/P (MAP) 132/66 (88) 128/69 (88) 121/66 (84) 94/55 (68) Pulse Ox 100 100 85 O2 Delivery Room Air Room Air Room Air Room Air 02/14/19 02/14/19 02/14/19 02/14/19 20:00 20:00 21:00 22:00 Pulse 78 140 108 Resp 20 20 16 B/P (MAP) 76/52 (60) 110/72 (85) 117/78 (91) Pulse Ox 95 91 91 O2 Delivery Room Air Nasal Cannula Room Air Room Air O2 Flow Rate 4.0 4.0 4.0 4.0 02/14/19 02/15/19 02/15/19 02/15/19 23:00 00:00 00:00 01:00 Temp 98.5 98.5 Pulse 80 82 75 Resp 20 18 18 B/P (MAP) 111/64 (80) 115/63 (80) 107/58 (74) Pulse Ox 90 96 97 O2 Delivery Nasal Cannula Nasal Cannula Nasal Cannula Nasal Cannula O2 Flow Rate 4.0 4.0 4.0 4.0 02/15/19 02/15/19 02/15/19 02/15/19 02:00 03:00 04:00 04:00 Temp 97.4 97.4 Pulse 77 77 75 Resp 22 18 20 B/P (MAP) 113/63 (80) 107/58 (74) 108/62 (77) Pulse Ox 98 98 100 O2 Delivery Nasal Cannula Nasal Cannula Nasal Cannula Nasal Cannula O2 Flow Rate 4.0 4.0 4.0 4.0 02/15/19 02/15/19 02/15/19 02/15/19 05:00 06:00 07:00 08:00 Temp 97.6 97.6 Pulse 73 74 75 72 Resp 18 20 20 19 B/P (MAP) 101/56 (71) 108/59 (75) 112/59 (76) 112/53 (72) Pulse Ox 98 98 100 100 O2 Delivery Nasal Cannula Nasal Cannula Nasal Cannula Nasal Cannula O2 Flow Rate 4.0 4.0 4.0 4.0 02/15/19 02/15/19 02/15/19 02/15/19 08:00 09:00 10:00 11:00 Pulse 68 74 102 Resp 16 20 33 B/P (MAP) 117/55 (75) 140/65 (90) 141/67 (91) Pulse Ox 100 100 100 O2 Delivery Nasal Cannula Nasal Cannula Nasal Cannula Nasal Cannula O2 Flow Rate 4.0 4.0 4.0 4.0 02/15/19 02/15/19 02/15/19 02/15/19 12:00 12:00 13:00 14:00 Temp 97.6 97.6 Pulse 81 83 93 Resp 18 16 16 B/P (MAP) 113/62 (79) 120/66 (84) 111/61 (78) Pulse Ox 97 96 100 O2 Delivery Nasal Cannula Nasal Cannula Nasal Cannula Nasal Cannula O2 Flow Rate 4.0 4.0 4.0 4.0 Intake and Output 02/14/19 02/14/19 02/15/19 15:00 23:00 07:00 Intake Total 3163.2 ml 1223.9 ml Output Total 30 ml 0 ml Balance 3133.2 ml 1223.9 ml Nutrition Consultation Dietary Evaluation: Recommendations by RD: Increase Calorie Intake, PPN/TPN Comments: REC TPN per followin g dextrose, 60 g AA, 20 g lipids REC advance diet as able pending NEEDLE LOOM OPERATOR recommendations, goal diet ADA w/textures and liquids per NEEDLE LOOM OPERATOR Expected Outcomes/Goals: Nutrition support + PO intake to meet >75% est needs Malnutrition Findings: Body Fat Depletion (Non Severe: Mild Depletion Weight Status: Appropriate JENNIFER CORTÉS MD Feb 15, 2019 15:23
--- NOTE | 2019-02-15 16:16 | RAD ---
PORTABLE CHEST 1V 2:56 PM Clinical indications: Status post thoracentesis. COMPARISON: Same day at 9:27 AM FINDINGS/ IMPRESSION: Right-sided pleural effusion is much smaller in size after thoracentesis. No pneumothorax is seen. There is significant improved aeration of the right lower lung zone. Small left-sided pleural effusion and associated consolidative left lung base infiltrate is still evident and is unchanged. Electronically signed by: Felipe Uriostegui MD (02/15/2019 4:14 PM) [place] [id number]
[2019-02-15] MEDS: PANTOPRAZOLE IV PUSH 40 MG VIAL. IVP SCH (17:31)
[2019-02-15] MEDS: IV NORMAL SALINE 1000ML BAG 1,000 ML IV SCH (17:32)
[2019-02-15] MEDS: NOREPINEPHRIN 8MG/250ML PREMIX 250 ML IV PRN (22:48)
[2019-02-15] MEDS: ENOXAPARIN 30 MG/0.3 ML SYRINGE. SQ SCH (23:24)
[2019-02-15] MEDS: LACTOBACILLUS RHAMNOSUS GG 1 CAPSULE. PO SCH (23:24)
[2019-02-16] VITALS (24 sets, daily range): BP systolic 77–102; BP diastolic 45–64
--- NOTE | 2019-02-16 00:49 | CONS ---
DATE OF CONSULTATION: 02/15/2019 REQUESTING PHYSICIAN: Dr. Callaway. REASON FOR CONSULTATION: Sepsis. HISTORY OF PRESENT ILLNESS: This is an 88-year-old gentleman with multiple medical problems and very poor hearing, who was admitted. In fact, he went to see his regular doctor. He has been having weakness, anorexia and diarrhea that had been going on for about a week or so. The patient was noted to have a low blood pressure and tachycardia. Hence, he was asked to come to the hospital. The patient was evaluated in the ER where his white count was normal, but the creatinine was 2.3. Lactic acid was 7.6. Urinalysis was unremarkable. Chest x-ray showed pleural effusion. The patient was admitted for further management. CT of the chest, abdomen and pelvis was unremarkable other than pleural effusion and possible cyst or hydronephrosis. The patient received one dose of vancomycin and Levaquin. I started Zosyn and Zyvox. The patient is alert, awake and comfortable. He received 2.5 liters of fluid. Blood pressure is stable. No nausea or vomiting noted. Denies any pain. Again, communication with the patient is very limited because of very poor hearing. The patient denies any headache or visual symptoms. PAST MEDICAL HISTORY: Positive for coronary artery disease, diabetes mellitus and renal insufficiency. He has had some sort of abdominal mesh, which has been removed. PAST SURGICAL HISTORY: Has had appendicectomy, cholecystectomy and coronary artery bypass grafting. SOCIAL HISTORY: Negative for smoking, alcohol or illicit drug use. The patient lives with the and daughter at home. ALLERGIES: No known drug allergies. CURRENT MEDICATIONS: Reviewed. The patient is on Zyvox and Zosyn. REVIEW OF SYSTEMS: As per HPI, all other systems reviewed are negative. PHYSICAL EXAMINATION: GENERAL: Alert, oriented gentleman, not in any distress. VITAL SIGNS: Stable, afebrile. HEENT: Both pupils are round and reacting. No conjunctival lesion, no lesion in the mouth. NECK: Supple, no JVP, no lymphadenopathy. LUNGS: Decreased breath sounds. HEART: S1, S2 regular. No gallop or murmur. ABDOMEN: Soft, nontender, no organomegaly. EXTREMITIES: In fact, his right foot is cold, although there is no cyanosis. Peripheral pulses are not palpable. Rest of the skin exam is unremarkable. The patient does have edema in the upper extremity as well as lower extremity like anasarca. NEUROLOGIC: Other than poor hearing, the patient does move all the extremities. There is no other focal deficit. LABORATORY DATA: White count is 7.4, hemoglobin 9.8, platelets are 129,000. BUN and creatinine is improved to 1.820 and 1.8. Lactic acid improved to 1.8. Urinalysis is unremarkable. CT as I mentioned. Chest x-ray showed large right-sided pleural effusion. IMPRESSION: 1. Lactic acidosis, most likely is a combination of severe dehydration and congestive heart failure with a circulatory failure, infection always is a possibility, needs to rule out, although there is no obvious area of concern. 2. Hypotension secondary to dehydration. 3. History of congestive heart failure. 4. History of renal insufficiency. 5. Large pleural effusion. 6. Coronary artery disease. 7. Malnutrition with albumin 1.4. 8. Elevated liver function tests. RECOMMENDATIONS: Continue Zyvox and Zosyn, supportive care. We will check the cultures. May consider thoracentesis for diagnostic and therapeutic purpose. Also, probably the patient still may need hydration but he may require albumin along with it. Supportive care and we will continue to follow. Thank you very much, Dr. Callaway, for giving me the opportunity to participate in this patient's care. HARDY LOMELI MD DR: [email or web address]/joshua JOB#: [id number] / [id number]
--- NOTE | 2019-02-16 03:01 | CONS ---
DATE OF CONSULTATION: 02/15/2019 ATTENDING PHYSICIAN: Jessica Callaway DO REASON FOR CONSULTATION: The patient seen in pulmonary consultation at the request of Dr. Callaway for pleural effusion. HISTORY OF PRESENT ILLNESS: The patient is an 88-year-old that according to his over the last several weeks, he is becoming more and more short of breath. He was walking approximately a week ago, but finally was not getting up out of bed. She called the doctor's office and was referred to the Emergency Department. The patient was seen in the Emergency Department and evaluated. The main problem was emesis and decreased level of energy. He was found to be hypotensive with blood pressure of 80/40, heart rate was elevated. He underwent some imaging studies including a CT chest, abdomen and pelvis. I reviewed the CT chest, which revealed a large right-sided effusion. There was a tiny left upper lobe noncalcified nodule. CT of the abdomen revealed moderate free fluid in the pelvis. There was body wall edema and the pancreas was atrophic. There was a L4 compression deformity. The patient is not complaining of being short of breath. He has no complaints actually. PAST MEDICAL HISTORY: Remarkable for coronary artery disease, cardiomyopathy, hyperlipidemia, peptic ulcer disease, gastroesophageal reflux, anxiety, osteoarthritis, chronic renal insufficiency, type 2 diabetes. PAST SURGICAL HISTORY: He has had previous appendectomy, cholecystectomy, coronary artery bypass grafting, PCI with stenting. FAMILY HISTORY: Noncontributory in this age group. SOCIAL HISTORY: He smoked for a short period of time, quit in 1949. ALLERGIES: No known drug allergies. CURRENT MEDICATIONS: List was reviewed. He is on multiple antibiotics. He has been seen by the Infectious Disease Service. PHYSICAL EXAMINATION: VITAL SIGNS: Stable. He is on norepinephrine. His blood pressure has improved. He has received IV fluids. HEENT: Eyes, the sclerae were nonicteric. NECK: Jugular venous distention was not elevated. No lymphadenopathy. CHEST: Full expansion. LUNGS: Diminished breath sounds at the bases, right greater than left. CARDIOVASCULAR: Regular rate and rhythm with S1, S2, no S3. ABDOMEN: Soft, nontender, nondistended. EXTREMITIES: No clubbing, cyanosis, some edema. LABORATORY DATA: White count was noted to be normal. Electrolytes were noted. BUN was 20, creatinine was 1.8. Lactic acid level initially 4.3, repeat was 1.8. INR was 1.5. UA was noted. IMPRESSION: 1. Large right-sided effusion. 2. Septic shock. 3. Elevated liver chemistries. 4. [id number] congestive heart failure, suspect diastolic. 5. Renal insufficiency. 6. Protein malnutrition, present upon admission. PLAN: 1. Case discussed with Dr. Salazar. We will proceed with a diagnostic thoracentesis. 2. Continue IV antibiotics per Infectious Disease service. 3. Follow Cardiology input. 4. We will follow up on the pleural fluid analysis. The above was discussed with the at the bedside. I do appreciate the privilege in sharing in the patient's care. SUMMER ROY MD DR: LARY/joshua JOB#: [id number] / [id number]
[2019-02-16 05:45] LABS: BASO % 1 % (0-3); EOS % 0 % (0-3); HEMATOCRIT 27.7 % (39.0-53.0); HEMOGLOBIN 9.4 g/dL (13.0-17.5); LYMPH # 0.8 x10^3/uL (1.0-4.8); LYMPH % 17 % (24-48); MEAN CORPUSCULAR HEMOGLOBIN 31 pg (25-35); MEAN CORPUSCULAR HGB CONC 34 g/dL (31-37); MEAN CORPUSCULAR VOLUME 91 fL (79-100); MONO # 0.3 x10^3/uL (0.0-1.1); MONO % 6 % (0-9); NEUT # 3.7 x10^3/uL (1.8-7.7); NEUT % 76 % (31-73); PLATELET COUNT 114 x10^3/uL (140-400); RED BLOOD COUNT 3.05 x10^6/uL (4.30-5.70); RED CELL DISTRIBUTION WIDTH 15.3 % (11.5-14.5); WHITE BLOOD COUNT 4.9 x10^3/uL (4.0-11.0)
[2019-02-16] MEDS: PIPERACILLIN/TAZOBACTAM 3.375 GM in IV NORMAL SALINE 50ML 50 ML IV SCH ×3 (06:00→22:30)
[2019-02-16] MEDS: IV NORMAL SALINE 1000ML BAG 1,000 ML IV SCH (06:00)
[2019-02-16 06:19] LABS: ALBUMIN 1.3 g/dL (3.4-5.0); ALBUMIN/GLOBULIN RATIO 0.4 (1.0-1.7); CALCIUM 6.8 mg/dL (8.5-10.1); CREATININE 1.8 mg/dL (0.7-1.3); GFR 35.9; POTASSIUM 3.6 mmol/L (3.5-5.1); TOTAL PROTEIN 4.3 g/dL (6.4-8.2)
--- NOTE | 2019-02-16 06:55 | PDOC ---
PULMONARY PROGRESS NOTES Subjective very hard of hearing, no sob Vitals Vital Signs Date Time Temp Pulse Resp B/P (MAP) Pulse Ox O2 Delivery O2 Flow Rate FiO2 02/16/19 06:00 73 18 94/54 (67) 97 Nasal Cannula 2.0 02/16/19 04:00 98.1 98.1 Comments ros as mentioned as above other sys otherwise neg ROS: No Nausea General: Alert HEENT: Other (nc at perll nose throat clear neck no lad no thyromegaly) Lungs: Crackles, Other (dul at bases) Cardiovascular: S1, S2 Abdomen: Soft, Non-tender, Other (no mass) Neuro Exam: Alert Skin: Warm Labs Laboratory Tests Test 02/14/19 15:40 02/14/19 19:05 02/15/19 04:30 02/15/19 07:40 White Blood Count 9.7 x10^3/uL (4.0-11.0) 7.4 x10^3/uL (4.0-11.0) Red Blood Count 3.84 x10^6/uL (4.30-5.70) 3.14 x10^6/uL (4.30-5.70) Hemoglobin 11.9 g/dL (13.0-17.5) 9.8 g/dL (13.0-17.5) Hematocrit 36.0 % (39.0-53.0) 28.7 % (39.0-53.0) Mean Corpuscular Volume 94 fL (79-100) 91 fL (79-100) Mean Corpuscular Hemoglobin 31 pg (25-35) 31 pg (25-35) Mean Corpuscular Hemoglobin Concent 33 g/dL (31-37) 34 g/dL (31-37) Red Cell Distribution Width 15.9 % (11.5-14.5) 15.4 % (11.5-14.5) Platelet Count 156 x10^3/uL (140-400) 129 x10^3/uL (140-400) Neutrophils (%) (Auto) 80 % (31-73) 84 % (31-73) Lymphocytes (%) (Auto) 13 % (24-48) 9 % (24-48) Monocytes (%) (Auto) 7 % (0-9) 7 % (0-9) Eosinophils (%) (Auto) 0 % (0-3) 0 % (0-3) Basophils (%) (Auto) 0 % (0-3) 0 % (0-3) Neutrophils # (Auto) 7.8 x10^3/uL (1.8-7.7) 6.2 x10^3/uL (1.8-7.7) Lymphocytes # (Auto) 1.2 x10^3/uL (1.0-4.8) 0.7 x10^3/uL (1.0-4.8) Monocytes # (Auto) 0.6 x10^3/uL (0.0-1.1) 0.5 x10^3/uL (0.0-1.1) Eosinophils # (Auto) 0.0 x10^3/uL (0.0-0.7) 0.0 x10^3/uL (0.0-0.7) Basophils # (Auto) 0.0 x10^3/uL (0.0-0.2) 0.0 x10^3/uL (0.0-0.2) Prothrombin Time 17.6 SEC (11.7-14.0) Prothromb Time International Ratio 1.5 (0.8-1.1) Sodium Level 139 mmol/L (136-145) 138 mmol/L (136-145) Potassium Level 3.8 mmol/L (3.5-5.1) 3.4 mmol/L (3.5-5.1) Chloride Level 104 mmol/L (98-107) 107 mmol/L (98-107) Carbon Dioxide Level 21 mmol/L (21-32) 22 mmol/L (21-32) Anion Gap 14 (6-14) 9 (6-14) Blood Urea Nitrogen 20 mg/dL (8-26) 20 mg/dL (8-26) Creatinine 2.3 mg/dL (0.7-1.3) 1.8 mg/dL (0.7-1.3) Estimated GFR (Cockcroft-Gault) 27.0 35.9 BUN/Creatinine Ratio 9 (6-20) Glucose Level 164 mg/dL (70-99) 157 mg/dL (70-99) Lactic Acid Level 7.6 mmol/L (0.4-2.0) 4.3 mmol/L (0.4-2.0) 1.8 mmol/L (0.4-2.0) Calcium Level 7.7 mg/dL (8.5-10.1) 7.0 mg/dL (8.5-10.1) Total Bilirubin 1.2 mg/dL (0.2-1.0) Aspartate Amino Transf (AST/SGOT) 233 U/L (15-37) Alanine Aminotransferase (ALT/SGPT) 52 U/L (16-63) Alkaline Phosphatase 240 U/L (46-116) Troponin I Quantitative < 0.017 ng/mL (0.000-0.055) XH-Nul-G-Type Natriuretic Peptide 2822 pg/mL (0-449) Total Protein 5.5 g/dL (6.4-8.2) Albumin 1.4 g/dL (3.4-5.0) Albumin/Globulin Ratio 0.3 (1.0-1.7) Magnesium Level 1.9 mg/dL (1.8-2.4) Iron Level 48 ug/dL (65-175) Total Iron Binding Capacity 59 ug/dL (250-450) Iron Saturation 81 % (15-34) Vitamin B12 Level > 2000 pg/mL (247-911) Urine Collection Type Unknown Urine Color Valery Urine Clarity Clear Urine pH 5.0 Urine Specific Hancock >=1.030 Urine Protein Negative mg/dL (NEG-TRACE) Urine Glucose (UA) Negative mg/dL (NEG) Urine Ketones (Stick) Negative mg/dL (NEG) Urine Blood Negative (NEG) Urine Nitrite Negative (NEG) Urine Bilirubin Small (NEG) Urine Urobilinogen Dipstick 0.2 mg/dL (0.2 mg/dL) Urine Leukocyte Esterase Negative (NEG) Urine RBC 0 /HPF (0-2) Urine WBC 1-4 /HPF (0-4) Urine Squamous Epithelial Cells Occ /LPF Urine Bacteria Few /HPF (0-FEW) Urine Hyaline Casts Moderate /HPF Urine Mucus Marked /LPF Test 02/15/19 14:00 02/15/19 17:34 02/16/19 05:35 Body Fluid Source Pleural Body Fluid Color Yellow Body Fluid Clarity Clear Body Fluid Nucleated Cells 16 /cmm (Not Established) Body Fluid Mononuclear WBCs (%) 100 % Body Fluid Polymorphonuclear Cells 0 % Body Fluid Total RBCs Counted 4 /cmm (Not Established) Glucose (Fingerstick) 122 mg/dL (70-99) White Blood Count 4.9 x10^3/uL (4.0-11.0) Red Blood Count 3.05 x10^6/uL (4.30-5.70) Hemoglobin 9.4 g/dL (13.0-17.5) Hematocrit 27.7 % (39.0-53.0) Mean Corpuscular Volume 91 fL (79-100) Mean Corpuscular Hemoglobin 31 pg (25-35) Mean Corpuscular Hemoglobin Concent 34 g/dL (31-37) Red Cell Distribution Width 15.3 % (11.5-14.5) Platelet Count 114 x10^3/uL (140-400) Neutrophils (%) (Auto) 76 % (31-73) Lymphocytes (%) (Auto) 17 % (24-48) Monocytes (%) (Auto) 6 % (0-9) Eosinophils (%) (Auto) 0 % (0-3) Basophils (%) (Auto) 1 % (0-3) Neutrophils # (Auto) 3.7 x10^3/uL (1.8-7.7) Lymphocytes # (Auto) 0.8 x10^3/uL (1.0-4.8) Monocytes # (Auto) 0.3 x10^3/uL (0.0-1.1) Eosinophils # (Auto) 0.0 x10^3/uL (0.0-0.7) Basophils # (Auto) 0.0 x10^3/uL (0.0-0.2) Sodium Level 138 mmol/L (136-145) Potassium Level 3.6 mmol/L (3.5-5.1) Chloride Level 108 mmol/L (98-107) Carbon Dioxide Level 24 mmol/L (21-32) Anion Gap 6 (6-14) Blood Urea Nitrogen 18 mg/dL (8-26) Creatinine 1.8 mg/dL (0.7-1.3) Estimated GFR (Cockcroft-Gault) 35.9 BUN/Creatinine Ratio 10 (6-20) Glucose Level 120 mg/dL (70-99) Calcium Level 6.8 mg/dL (8.5-10.1) Total Bilirubin 1.0 mg/dL (0.2-1.0) Aspartate Amino Transf (AST/SGOT) 69 U/L (15-37) Alanine Aminotransferase (ALT/SGPT) 28 U/L (16-63) Alkaline Phosphatase 137 U/L (46-116) Total Protein 4.3 g/dL (6.4-8.2) Albumin 1.3 g/dL (3.4-5.0) Albumin/Globulin Ratio 0.4 (1.0-1.7) Laboratory Tests Test 02/15/19 07:40 02/15/19 14:00 02/15/19 17:34 02/16/19 05:35 Urine Collection Type Unknown Urine Color Valery Urine Clarity Clear Urine pH 5.0 Urine Specific Hancock >=1.030 Urine Protein Negative mg/dL (NEG-TRACE) Urine Glucose (UA) Negative mg/dL (NEG) Urine Ketones (Stick) Negative mg/dL (NEG) Urine Blood Negative (NEG) Urine Nitrite Negative (NEG) Urine Bilirubin Small (NEG) Urine Urobilinogen Dipstick 0.2 mg/dL (0.2 mg/dL) Urine Leukocyte Esterase Negative (NEG) Urine RBC 0 /HPF (0-2) Urine WBC 1-4 /HPF (0-4) Urine Squamous Epithelial Cells Occ /LPF Urine Bacteria Few /HPF (0-FEW) Urine Hyaline Casts Moderate /HPF Urine Mucus Marked /LPF Body Fluid Source Pleural Body Fluid Color Yellow Body Fluid Clarity Clear Body Fluid Nucleated Cells 16 /cmm (Not Established) Body Fluid Mononuclear WBCs (%) 100 % Body Fluid Polymorphonuclear Cells 0 % Body Fluid Total RBCs Counted 4 /cmm (Not Established) Glucose (Fingerstick) 122 mg/dL (70-99) White Blood Count 4.9 x10^3/uL (4.0-11.0) Red Blood Count 3.05 x10^6/uL (4.30-5.70) Hemoglobin 9.4 g/dL (13.0-17.5) Hematocrit 27.7 % (39.0-53.0) Mean Corpuscular Volume 91 fL (79-100) Mean Corpuscular Hemoglobin 31 pg (25-35) Mean Corpuscular Hemoglobin Concent 34 g/dL (31-37) Red Cell Distribution Width 15.3 % (11.5-14.5) Platelet Count 114 x10^3/uL (140-400) Neutrophils (%) (Auto) 76 % (31-73) Lymphocytes (%) (Auto) 17 % (24-48) Monocytes (%) (Auto) 6 % (0-9) Eosinophils (%) (Auto) 0 % (0-3) Basophils (%) (Auto) 1 % (0-3) Neutrophils # (Auto) 3.7 x10^3/uL (1.8-7.7) Lymphocytes # (Auto) 0.8 x10^3/uL (1.0-4.8) Monocytes # (Auto) 0.3 x10^3/uL (0.0-1.1) Eosinophils # (Auto) 0.0 x10^3/uL (0.0-0.7) Basophils # (Auto) 0.0 x10^3/uL (0.0-0.2) Sodium Level 138 mmol/L (136-145) Potassium Level 3.6 mmol/L (3.5-5.1) Chloride Level 108 mmol/L (98-107) Carbon Dioxide Level 24 mmol/L (21-32) Anion Gap 6 (6-14) Blood Urea Nitrogen 18 mg/dL (8-26) Creatinine 1.8 mg/dL (0.7-1.3) Estimated GFR (Cockcroft-Gault) 35.9 BUN/Creatinine Ratio 10 (6-20) Glucose Level 120 mg/dL (70-99) Calcium Level 6.8 mg/dL (8.5-10.1) Total Bilirubin 1.0 mg/dL (0.2-1.0) Aspartate Amino Transf (AST/SGOT) 69 U/L (15-37) Alanine Aminotransferase (ALT/SGPT) 28 U/L (16-63) Alkaline Phosphatase 137 U/L (46-116) Total Protein 4.3 g/dL (6.4-8.2) Albumin 1.3 g/dL (3.4-5.0) Albumin/Globulin Ratio 0.4 (1.0-1.7) Medications Active Scripts Medications Dose Route/Sig Max Daily Dose Days Date Category Aspirin Ec (Aspirin) 81 Mg Tablet.dr 81 Mg PO DAILYWBKFT 30 10/06/17 Rx Protonix (Pantoprazole Sodium) 20 Mg Tablet.dr 40 Mg PO BID 06/29/17 Reported Escitalopram Oxalate 10 Mg Tablet 10 Mg PO DAILY 03/30/17 Reported Comments cxr reviewed Right-sided pleural effusion is much smaller in size after thoracentesis. No pneumothorax is seen. There is significant improved aeration of the right lower lung zone. Small left-sided pleural effusion and associated consolidative left lung base infiltrate is still evident and is unchanged. Impression . IMPRESSION: 1. Large right-sided effusion, s/p thoracentesis, transudate, due to chf. 2. Septic shock. 3. Elevated liver chemistries. 4. Qswza-af-nuusyyf congestive heart failure, systolic. 5. Renal insufficiency. 6. Protein malnutrition, present upon admission. echo The systolic function is mildly to moderately impaired. The Ejection Fraction is 40-45%. There is global hypokinesis of the left ventricle. Septal motion suggestive of conduction defect. Plan . PLAN: 1. s/p thoracentesis. transudate, fu cxs cytology 2. Continue IV antibiotics per Infectious Disease service. 3. Follow Cardiology input. 4. keep I<O, monitor k, cr 5. 02 titration to keep sat 92% discussed w [facility] MD Feb 16, 2019 06:55
--- NOTE | 2019-02-16 08:17 | PDOC ---
Infectious Disease Note Subjective: Subjective pt is doing ok no f/c/n/v/d d/w rn weaned off pressors, ROS: ROS Negative otherwise. Vital Signs: Vital Signs Vital Signs Date Time Temp Pulse Resp B/P (MAP) Pulse Ox O2 Delivery O2 Flow Rate FiO2 02/16/19 07:00 97.8 74 16 98/58 (71) 99 Nasal Cannula 2.0 97.8 Physical Exam: PHYSICAL EXAM GENERAL: Alert, oriented gentleman, not in any distress. HEENT: Both pupils are round and reacting. No conjunctival lesion, no lesion in the mouth. NECK: Supple, RT IJ looks ok LUNGS: Decreased breath sounds. HEART: S1, S2 regular. No gallop or murmur. ABDOMEN: Soft, nontender, no organomegaly. EXTREMITIES: edema + NEUROLOGIC: Other than poor hearing, the patient does move all the extremities. There is no other focal deficit. Medications: Inpatient Meds: Current Medications Medications (Trade) Dose Ordered Sig/Enrrique Start Time Stop Time Status Last Admin Dose Admin Albumin Human 100 ml @ 100 mls/hr 1X ONCE 02/15/19 09:15 02/15/19 10:14 DC 02/15/19 10:37 100 MLS/HR Aspirin (Children'S Aspirin) 81 mg DAILYWBKFT 02/15/19 08:00 02/15/19 09:29 DC 02/15/19 08:43 81 MG Aspirin (Ecotrin) 81 mg DAILYWBKFT 02/16/19 08:00 Citalopram Hydrobromide (CeleXA) 20 mg DAILY 02/15/19 09:00 02/15/19 08:43 20 MG Dopamine HCl/ Dextrose 250 ml @ 10.121 mls/ hr CONT PRN 02/14/19 20:00 02/14/19 20:32 13 MLS/HR Enoxaparin Sodium (Lovenox 30mg Syringe) 30 mg Q24H 02/14/19 21:00 02/15/19 23:24 30 MG Furosemide (Lasix) 20 mg 1X ONCE 02/15/19 10:15 02/15/19 10:16 DC 02/15/19 11:42 20 MG Lactobacillus Rhamnosus (Culturelle) 1 cap BID 02/15/19 21:00 02/15/19 23:24 1 CAP Levofloxacin/ Dextrose 150 ml @ 100 mls/hr 1X ONCE 02/14/19 16:45 02/14/19 18:14 DC 02/14/19 18:17 100 MLS/HR Linezolid/Dextrose 300 ml @ 300 mls/hr Q12HR 02/14/19 21:00 02/15/19 23:59 300 MLS/HR Norepinephrine Bitartrate 250 ml @ 12.97 mls/ hr CONT PRN 02/14/19 21:15 02/15/19 22:48 12.97 MLS/HR Ondansetron HCl (Zofran) 4 mg PRN Q6HRS PRN 02/14/19 21:30 02/15/19 15:42 4 MG Pantoprazole Sodium (PROTONIX VIAL for IV PUSH) 40 mg BIDAC 02/15/19 16:30 02/15/19 17:31 40 MG Pantoprazole Sodium (Protonix) 40 mg BIDAC 02/15/19 07:30 02/15/19 13:49 DC 02/15/19 08:43 40 MG Piperacillin Sod/ Tazobactam Sod 3.375 gm/Sodium Chloride 50 ml @ 100 mls/hr Q8HRS 02/14/19 22:00 02/16/19 06:00 100 MLS/HR Potassium Chloride/Water 100 ml @ 100 mls/hr Q1H 02/15/19 12:00 02/15/19 15:59 DC 02/15/19 14:53 100 MLS/HR Sodium Chloride 500 ml @ 500 mls/hr 1X ONCE 02/14/19 21:15 02/14/19 22:14 DC 02/14/19 21:40 500 MLS/HR Vancomycin HCl 250 ml @ 250 mls/hr 1X ONCE 02/14/19 17:00 02/14/19 17:59 DC 02/14/19 17:36 250 MLS/HR Labs: Lab Laboratory Tests Test 02/15/19 14:00 02/15/19 17:34 02/16/19 05:35 Body Fluid Source Pleural Body Fluid Color Yellow Body Fluid Clarity Clear Body Fluid Nucleated Cells 16 /cmm (Not Established) Body Fluid Mononuclear WBCs (%) 100 % Body Fluid Polymorphonuclear Cells 0 % Body Fluid Total RBCs Counted 4 /cmm (Not Established) Glucose (Fingerstick) 122 mg/dL (70-99) White Blood Count 4.9 x10^3/uL (4.0-11.0) Red Blood Count 3.05 x10^6/uL (4.30-5.70) Hemoglobin 9.4 g/dL (13.0-17.5) Hematocrit 27.7 % (39.0-53.0) Mean Corpuscular Volume 91 fL (79-100) Mean Corpuscular Hemoglobin 31 pg (25-35) Mean Corpuscular Hemoglobin Concent 34 g/dL (31-37) Red Cell Distribution Width 15.3 % (11.5-14.5) Platelet Count 114 x10^3/uL (140-400) Neutrophils (%) (Auto) 76 % (31-73) Lymphocytes (%) (Auto) 17 % (24-48) Monocytes (%) (Auto) 6 % (0-9) Eosinophils (%) (Auto) 0 % (0-3) Basophils (%) (Auto) 1 % (0-3) Neutrophils # (Auto) 3.7 x10^3/uL (1.8-7.7) Lymphocytes # (Auto) 0.8 x10^3/uL (1.0-4.8) Monocytes # (Auto) 0.3 x10^3/uL (0.0-1.1) Eosinophils # (Auto) 0.0 x10^3/uL (0.0-0.7) Basophils # (Auto) 0.0 x10^3/uL (0.0-0.2) Sodium Level 138 mmol/L (136-145) Potassium Level 3.6 mmol/L (3.5-5.1) Chloride Level 108 mmol/L (98-107) Carbon Dioxide Level 24 mmol/L (21-32) Anion Gap 6 (6-14) Blood Urea Nitrogen 18 mg/dL (8-26) Creatinine 1.8 mg/dL (0.7-1.3) Estimated GFR (Cockcroft-Gault) 35.9 BUN/Creatinine Ratio 10 (6-20) Glucose Level 120 mg/dL (70-99) Calcium Level 6.8 mg/dL (8.5-10.1) Total Bilirubin 1.0 mg/dL (0.2-1.0) Aspartate Amino Transf (AST/SGOT) 69 U/L (15-37) Alanine Aminotransferase (ALT/SGPT) 28 U/L (16-63) Alkaline Phosphatase 137 U/L (46-116) Total Protein 4.3 g/dL (6.4-8.2) Albumin 1.3 g/dL (3.4-5.0) Albumin/Globulin Ratio 0.4 (1.0-1.7) Objective: Assessment: 1. Lactic acidosis,multifactorial,resolved 2. Hypotension secondary to dehydration. 3. History of congestive heart failure. 4. History of renal insufficiency. 5. Large pleural effusion.s/p thoracocentesis 6. Coronary artery disease. 7. Malnutrition with albumin 1.4. 8. Elevated liver function tests. Plan: Plan of Care continue Zyvox and Zosyn f/u c/s and labs in am D/W SOULEYMANE JAVED MD Feb 16, 2019 08:17
[2019-02-16] MEDS: CITALOPRAM 20 MG TABLET. PO SCH (09:09)
[2019-02-16] MEDS: PANTOPRAZOLE IV PUSH 40 MG VIAL. IVP SCH ×2 (09:09→18:01)
[2019-02-16] MEDS: ASPIRIN ENTERIC COATED 81 MG TABLET.DR. PO SCH (09:09)
[2019-02-16] MEDS: LACTOBACILLUS RHAMNOSUS GG 1 CAPSULE. PO SCH ×2 (09:10→21:18)
--- NOTE | 2019-02-16 10:43 | PDOC ---
Subjective: Subjective: Per , patient tolerated pudding yesterday. Per nursing, speech advanced diet to dysphagia Objective: Vital Signs: Vital Signs Date Time Temp Pulse Resp B/P (MAP) Pulse Ox O2 Delivery O2 Flow Rate FiO2 02/16/19 09:00 97.8 73 18 89/64 (72) 99 Nasal Cannula 2.0 97.8 Labs: Laboratory Tests Test 02/15/19 14:00 02/15/19 17:34 02/16/19 05:35 Body Fluid Source Pleural Body Fluid Color Yellow Body Fluid Clarity Clear Body Fluid Nucleated Cells 16 /cmm (Not Established) Body Fluid Mononuclear WBCs (%) 100 % Body Fluid Polymorphonuclear Cells 0 % Body Fluid Total RBCs Counted 4 /cmm (Not Established) Glucose (Fingerstick) 122 mg/dL (70-99) White Blood Count 4.9 x10^3/uL (4.0-11.0) Red Blood Count 3.05 x10^6/uL (4.30-5.70) Hemoglobin 9.4 g/dL (13.0-17.5) Hematocrit 27.7 % (39.0-53.0) Mean Corpuscular Volume 91 fL (79-100) Mean Corpuscular Hemoglobin 31 pg (25-35) Mean Corpuscular Hemoglobin Concent 34 g/dL (31-37) Red Cell Distribution Width 15.3 % (11.5-14.5) Platelet Count 114 x10^3/uL (140-400) Neutrophils (%) (Auto) 76 % (31-73) Lymphocytes (%) (Auto) 17 % (24-48) Monocytes (%) (Auto) 6 % (0-9) Eosinophils (%) (Auto) 0 % (0-3) Basophils (%) (Auto) 1 % (0-3) Neutrophils # (Auto) 3.7 x10^3/uL (1.8-7.7) Lymphocytes # (Auto) 0.8 x10^3/uL (1.0-4.8) Monocytes # (Auto) 0.3 x10^3/uL (0.0-1.1) Eosinophils # (Auto) 0.0 x10^3/uL (0.0-0.7) Basophils # (Auto) 0.0 x10^3/uL (0.0-0.2) Sodium Level 138 mmol/L (136-145) Potassium Level 3.6 mmol/L (3.5-5.1) Chloride Level 108 mmol/L (98-107) Carbon Dioxide Level 24 mmol/L (21-32) Anion Gap 6 (6-14) Blood Urea Nitrogen 18 mg/dL (8-26) Creatinine 1.8 mg/dL (0.7-1.3) Estimated GFR (Cockcroft-Gault) 35.9 BUN/Creatinine Ratio 10 (6-20) Glucose Level 120 mg/dL (70-99) Calcium Level 6.8 mg/dL (8.5-10.1) Total Bilirubin 1.0 mg/dL (0.2-1.0) Aspartate Amino Transf (AST/SGOT) 69 U/L (15-37) Alanine Aminotransferase (ALT/SGPT) 28 U/L (16-63) Alkaline Phosphatase 137 U/L (46-116) Total Protein 4.3 g/dL (6.4-8.2) Albumin 1.3 g/dL (3.4-5.0) Albumin/Globulin Ratio 0.4 (1.0-1.7) Physical Exam: Physical Exam: PE: GEN: NAD. HEENT: Atraumatic, PERRL LUNGS: NC 4L HEART: RRR ABD: NABS, S/ND/NT EXTREMITY: pitting edema BLE SKIN: dry skin on feet Assessment & Plan: Assessment : A N/v, diarrhea Hypotension, pleural effusions, anasarca Lactic acidosis, ADAM, hypoalbuminemia, chronic anemia, coagulopathy, abnormal LFTs H/o dysphagia/esophageal dysmotility H/o anastomotic ulcers S/p antrectomy w/ Kb-en-Y and J tube placement/removal S/p cholecystectomy Anemia - iron studies c/w ACD in 2018 Cardiomyopathy, CAD, DM [place] Plan: 1) Diet per speech- consider esophagram when able 2) Anemia parameters suggest chronic disease 3) Follow stool studies JATINDER ALMANZAR MD Feb 16, 2019 10:43
--- NOTE | 2019-02-16 10:45 | PDOC ---
PROGRESS NOTES Subjective Subjective pt sleeping quietly, I did not wake him Objective Objective Vital Signs Date Time Temp Pulse Resp B/P (MAP) Pulse Ox O2 Delivery O2 Flow Rate FiO2 02/16/19 09:00 97.8 73 18 89/64 (72) 99 Nasal Cannula 2.0 97.8 Intake and Output 02/16/19 07:00 Intake Total 250 ml Output Total 2940 ml Balance -2690 ml Intake Oral 250 ml Output Urine Total 1440 ml Drainage Total 1500 ml Assessment Assessment Problems Medical Problems: (1) Anemia Status: Acute (2) CHF (congestive heart failure) Status: Acute (3) Diarrhea Status: Acute (4) Elevated liver function tests Status: Acute (5) Hypoalbuminemia Status: Acute (6) Hypocalcemia Status: Acute (7) Pleural effusion Status: Acute (8) Renal insufficiency Status: Acute (9) Severe sepsis Status: Acute (10) Tachycardia Status: Acute Plan Plan of Care no new surgery recs Comment Review of Relevant I have reviewed the following items sukhwinder (where applicable) has been applied. Labs Laboratory Tests Test 02/14/19 15:40 02/14/19 19:05 02/15/19 04:30 02/15/19 07:40 White Blood Count 9.7 x10^3/uL (4.0-11.0) 7.4 x10^3/uL (4.0-11.0) Red Blood Count 3.84 x10^6/uL (4.30-5.70) 3.14 x10^6/uL (4.30-5.70) Hemoglobin 11.9 g/dL (13.0-17.5) 9.8 g/dL (13.0-17.5) Hematocrit 36.0 % (39.0-53.0) 28.7 % (39.0-53.0) Mean Corpuscular Volume 94 fL (79-100) 91 fL (79-100) Mean Corpuscular Hemoglobin 31 pg (25-35) 31 pg (25-35) Mean Corpuscular Hemoglobin Concent 33 g/dL (31-37) 34 g/dL (31-37) Red Cell Distribution Width 15.9 % (11.5-14.5) 15.4 % (11.5-14.5) Platelet Count 156 x10^3/uL (140-400) 129 x10^3/uL (140-400) Neutrophils (%) (Auto) 80 % (31-73) 84 % (31-73) Lymphocytes (%) (Auto) 13 % (24-48) 9 % (24-48) Monocytes (%) (Auto) 7 % (0-9) 7 % (0-9) Eosinophils (%) (Auto) 0 % (0-3) 0 % (0-3) Basophils (%) (Auto) 0 % (0-3) 0 % (0-3) Neutrophils # (Auto) 7.8 x10^3/uL (1.8-7.7) 6.2 x10^3/uL (1.8-7.7) Lymphocytes # (Auto) 1.2 x10^3/uL (1.0-4.8) 0.7 x10^3/uL (1.0-4.8) Monocytes # (Auto) 0.6 x10^3/uL (0.0-1.1) 0.5 x10^3/uL (0.0-1.1) Eosinophils # (Auto) 0.0 x10^3/uL (0.0-0.7) 0.0 x10^3/uL (0.0-0.7) Basophils # (Auto) 0.0 x10^3/uL (0.0-0.2) 0.0 x10^3/uL (0.0-0.2) Prothrombin Time 17.6 SEC (11.7-14.0) Prothromb Time International Ratio 1.5 (0.8-1.1) Sodium Level 139 mmol/L (136-145) 138 mmol/L (136-145) Potassium Level 3.8 mmol/L (3.5-5.1) 3.4 mmol/L (3.5-5.1) Chloride Level 104 mmol/L (98-107) 107 mmol/L (98-107) Carbon Dioxide Level 21 mmol/L (21-32) 22 mmol/L (21-32) Anion Gap 14 (6-14) 9 (6-14) Blood Urea Nitrogen 20 mg/dL (8-26) 20 mg/dL (8-26) Creatinine 2.3 mg/dL (0.7-1.3) 1.8 mg/dL (0.7-1.3) Estimated GFR (Cockcroft-Gault) 27.0 35.9 BUN/Creatinine Ratio 9 (6-20) Glucose Level 164 mg/dL (70-99) 157 mg/dL (70-99) Lactic Acid Level 7.6 mmol/L (0.4-2.0) 4.3 mmol/L (0.4-2.0) 1.8 mmol/L (0.4-2.0) Calcium Level 7.7 mg/dL (8.5-10.1) 7.0 mg/dL (8.5-10.1) Total Bilirubin 1.2 mg/dL (0.2-1.0) Aspartate Amino Transf (AST/SGOT) 233 U/L (15-37) Alanine Aminotransferase (ALT/SGPT) 52 U/L (16-63) Alkaline Phosphatase 240 U/L (46-116) Troponin I Quantitative < 0.017 ng/mL (0.000-0.055) TN-Qvk-L-Type Natriuretic Peptide 2822 pg/mL (0-449) Total Protein 5.5 g/dL (6.4-8.2) Albumin 1.4 g/dL (3.4-5.0) Albumin/Globulin Ratio 0.3 (1.0-1.7) Magnesium Level 1.9 mg/dL (1.8-2.4) Iron Level 48 ug/dL (65-175) Total Iron Binding Capacity 59 ug/dL (250-450) Iron Saturation 81 % (15-34) Vitamin B12 Level > 2000 pg/mL (247-911) Urine Collection Type Unknown Urine Color Valery Urine Clarity Clear Urine pH 5.0 Urine Specific [facility] >=1.030 Urine Protein Negative mg/dL (NEG-TRACE) Urine Glucose (UA) Negative mg/dL (NEG) Urine Ketones (Stick) Negative mg/dL (NEG) Urine Blood Negative (NEG) Urine Nitrite Negative (NEG) Urine Bilirubin Small (NEG) Urine Urobilinogen Dipstick 0.2 mg/dL (0.2 mg/dL) Urine Leukocyte Esterase Negative (NEG) Urine RBC 0 /HPF (0-2) Urine WBC 1-4 /HPF (0-4) Urine Squamous Epithelial Cells Occ /LPF Urine Bacteria Few /HPF (0-FEW) Urine Hyaline Casts Moderate /HPF Urine Mucus Marked /LPF Test 02/15/19 14:00 02/15/19 17:34 02/16/19 05:35 Body Fluid Source Pleural Body Fluid Color Yellow Body Fluid Clarity Clear Body Fluid Nucleated Cells 16 /cmm (Not Established) Body Fluid Mononuclear WBCs (%) 100 % Body Fluid Polymorphonuclear Cells 0 % Body Fluid Total RBCs Counted 4 /cmm (Not Established) Glucose (Fingerstick) 122 mg/dL (70-99) White Blood Count 4.9 x10^3/uL (4.0-11.0) Red Blood Count 3.05 x10^6/uL (4.30-5.70) Hemoglobin 9.4 g/dL (13.0-17.5) Hematocrit 27.7 % (39.0-53.0) Mean Corpuscular Volume 91 fL (79-100) Mean Corpuscular Hemoglobin 31 pg (25-35) Mean Corpuscular Hemoglobin Concent 34 g/dL (31-37) Red Cell Distribution Width 15.3 % (11.5-14.5) Platelet Count 114 x10^3/uL (140-400) Neutrophils (%) (Auto) 76 % (31-73) Lymphocytes (%) (Auto) 17 % (24-48) Monocytes (%) (Auto) 6 % (0-9) Eosinophils (%) (Auto) 0 % (0-3) Basophils (%) (Auto) 1 % (0-3) Neutrophils # (Auto) 3.7 x10^3/uL (1.8-7.7) Lymphocytes # (Auto) 0.8 x10^3/uL (1.0-4.8) Monocytes # (Auto) 0.3 x10^3/uL (0.0-1.1) Eosinophils # (Auto) 0.0 x10^3/uL (0.0-0.7) Basophils # (Auto) 0.0 x10^3/uL (0.0-0.2) Sodium Level 138 mmol/L (136-145) Potassium Level 3.6 mmol/L (3.5-5.1) Chloride Level 108 mmol/L (98-107) Carbon Dioxide Level 24 mmol/L (21-32) Anion Gap 6 (6-14) Blood Urea Nitrogen 18 mg/dL (8-26) Creatinine 1.8 mg/dL (0.7-1.3) Estimated GFR (Cockcroft-Gault) 35.9 BUN/Creatinine Ratio 10 (6-20) Glucose Level 120 mg/dL (70-99) Calcium Level 6.8 mg/dL (8.5-10.1) Total Bilirubin 1.0 mg/dL (0.2-1.0) Aspartate Amino Transf (AST/SGOT) 69 U/L (15-37) Alanine Aminotransferase (ALT/SGPT) 28 U/L (16-63) Alkaline Phosphatase 137 U/L (46-116) Total Protein 4.3 g/dL (6.4-8.2) Albumin 1.3 g/dL (3.4-5.0) Albumin/Globulin Ratio 0.4 (1.0-1.7) Laboratory Tests Test 02/15/19 14:00 02/15/19 17:34 02/16/19 05:35 Body Fluid Source Pleural Body Fluid Color Yellow Body Fluid Clarity Clear Body Fluid Nucleated Cells 16 /cmm (Not Established) Body Fluid Mononuclear WBCs (%) 100 % Body Fluid Polymorphonuclear Cells 0 % Body Fluid Total RBCs Counted 4 /cmm (Not Established) Glucose (Fingerstick) 122 mg/dL (70-99) White Blood Count 4.9 x10^3/uL (4.0-11.0) Red Blood Count 3.05 x10^6/uL (4.30-5.70) Hemoglobin 9.4 g/dL (13.0-17.5) Hematocrit 27.7 % (39.0-53.0) Mean Corpuscular Volume 91 fL (79-100) Mean Corpuscular Hemoglobin 31 pg (25-35) Mean Corpuscular Hemoglobin Concent 34 g/dL (31-37) Red Cell Distribution Width 15.3 % (11.5-14.5) Platelet Count 114 x10^3/uL (140-400) Neutrophils (%) (Auto) 76 % (31-73) Lymphocytes (%) (Auto) 17 % (24-48) Monocytes (%) (Auto) 6 % (0-9) Eosinophils (%) (Auto) 0 % (0-3) Basophils (%) (Auto) 1 % (0-3) Neutrophils # (Auto) 3.7 x10^3/uL (1.8-7.7) Lymphocytes # (Auto) 0.8 x10^3/uL (1.0-4.8) Monocytes # (Auto) 0.3 x10^3/uL (0.0-1.1) Eosinophils # (Auto) 0.0 x10^3/uL (0.0-0.7) Basophils # (Auto) 0.0 x10^3/uL (0.0-0.2) Sodium Level 138 mmol/L (136-145) Potassium Level 3.6 mmol/L (3.5-5.1) Chloride Level 108 mmol/L (98-107) Carbon Dioxide Level 24 mmol/L (21-32) Anion Gap 6 (6-14) Blood Urea Nitrogen 18 mg/dL (8-26) Creatinine 1.8 mg/dL (0.7-1.3) Estimated GFR (Cockcroft-Gault) 35.9 BUN/Creatinine Ratio 10 (6-20) Glucose Level 120 mg/dL (70-99) Calcium Level 6.8 mg/dL (8.5-10.1) Total Bilirubin 1.0 mg/dL (0.2-1.0) Aspartate Amino Transf (AST/SGOT) 69 U/L (15-37) Alanine Aminotransferase (ALT/SGPT) 28 U/L (16-63) Alkaline Phosphatase 137 U/L (46-116) Total Protein 4.3 g/dL (6.4-8.2) Albumin 1.3 g/dL (3.4-5.0) Albumin/Globulin Ratio 0.4 (1.0-1.7) Microbiology 02/14/19 Blood Culture - Preliminary, Resulted NO GROWTH AFTER 1 DAY Medications Current Medications Sodium Chloride 1,000 ml @ 1,000 mls/hr Q1H IV Last administered on 02/14/19at 15:55; Start 02/14/19 at 15:34; Stop 02/14/19 at 16:33; Status DC Ondansetron HCl (Zofran) 4 mg 1X ONCE IV Last administered on 02/14/19at 16:09; Start 02/14/19 at 16:30; Stop 02/14/19 at 16:31; Status DC Sodium Chloride 1,000 ml @ 1,000 mls/hr 1X ONCE IV Last administered on 02/14/19at 17:27; Start 02/14/19 at 16:45; Stop 02/14/19 at 17:44; Status DC Piperacillin Sod/ Tazobactam Sod 3.375 gm/Sodium Chloride 50 ml @ 100 mls/hr 1X ONCE IV Last administered on 02/14/19at 17:27; Start 02/14/19 at 18:00; Stop 02/14/19 at 18:29; Status DC Vancomycin HCl 250 ml @ 250 mls/hr 1X ONCE IV Last administered on 02/14/19at 17:36; Start 02/14/19 at 17:00; Stop 02/14/19 at 17:59; Status DC Levofloxacin/ Dextrose 150 ml @ 100 mls/hr 1X ONCE IV Last administered on 02/14/19at 18:17; Start 02/14/19 at 16:45; Stop 02/14/19 at 18:14; Status DC Sodium Chloride 1,000 ml @ 150 mls/hr Q6H40M IV ; Start 02/14/19 at 17:05; Stop 02/14/19 at 21:10; Status DC Dopamine HCl/ Dextrose 250 ml @ 10.121 mls/ hr CONT PRN IV SEE I/O RECORD Last administered on 02/14/19at 20:32; Start 02/14/19 at 20:00 Piperacillin Sod/ Tazobactam Sod 3.375 gm/Sodium Chloride 50 ml @ 100 mls/hr Q8HRS IV Last administered on 02/16/19at 06:00; Start 02/14/19 at 22:00 Linezolid/Dextrose 300 ml @ 300 mls/hr Q12HR IV Last administered on 02/16/19at 09:10; Start 02/14/19 at 21:00 Enoxaparin Sodium (Lovenox 30mg Syringe) 30 mg Q24H SQ Last administered on 02/15/19at 23:24; Start 02/14/19 at 21:00 Sodium Chloride 1,000 ml @ 75 mls/hr [id number] IV Last administered on 02/16/19at 06:00; Start 02/15/19 at 18:00 Pantoprazole Sodium (Protonix) 40 mg BIDAC PO Last administered on 02/15/19at 08:43; Start 02/15/19 at 07:30; Stop 02/15/19 at 13:49; Status DC Aspirin (Children'S Aspirin) 81 mg DAILYWBKFT PO Last administered on 02/15/19 08:43; Start 02/15/19 at 08:00; Stop 02/15/19 at 09:29; Status DC Citalopram Hydrobromide (CeleXA) 20 mg DAILY PO Last administered on 02/16/19 09:09; Start 02/15/19 at 09:00 Norepinephrine Bitartrate 250 ml @ 12.97 mls/ hr CONT PRN IV SEE I/O RECORD Last administered on 02/15/19 22:48; Start 02/14/19 at 21:15 Sodium Chloride 500 ml @ 500 mls/hr 1X ONCE IV Last administered on 02/14/19 21:40; Start 02/14/19 at 21:15; Stop 02/14/19 at 22:14; Status DC Ondansetron HCl (Zofran) 4 mg PRN Q6HRS PRN IVP NAUSEA/VOMITING Last administered on 02/15/19 15:42; Start 02/14/19 at 21:30 Albumin Human 100 ml @ 100 mls/hr 1X ONCE IV Last administered on 02/15/19at 10:37; Start 02/15/19 at 09:15; Stop 02/15/19 at 10:14; Status DC Furosemide (Lasix) 20 mg 1X ONCE IVP Last administered on 02/15/19 11:42; Start 02/15/19 at 10:15; Stop 02/15/19 at 10:16; Status DC Aspirin (Ecotrin) 81 mg DAILYWBKFT PO Last administered on 02/16/19 09:09; Start 02/16/19 at 08:00 Potassium Chloride/Water 100 ml @ 100 mls/hr Q1H IV Last administered on 02/15/19 14:53; Start 02/15/19 at 12:00; Stop 02/15/19 at 15:59; Status DC Lactobacillus Rhamnosus (Culturelle) 1 cap BID PO Last administered on 02/16/19 09:10; Start 02/15/19 at 21:00 Pantoprazole Sodium (PROTONIX VIAL for IV PUSH) 40 mg BIDAC IVP Last administered on 02/16/19at 09:09; Start 02/15/19 at 16:30 Active Scripts Active Aspirin Ec (Aspirin) 81 Mg Tablet. 81 Mg PO DAILYWBKFT 30 Days Reported Protonix (Pantoprazole Sodium) 20 Mg Tablet. 40 Mg PO BID Escitalopram Oxalate 10 Mg Tablet 10 Mg PO DAILY Vitals/I & O Vital Sign - Last 24 Hours 02/15/19 02/15/19 02/15/19 02/15/19 11:00 12:00 12:00 13:00 Temp 97.6 97.6 Pulse 102 81 83 Resp 33 18 16 B/P (MAP) 141/67 (91) 113/62 (79) 120/66 (84) Pulse Ox 100 97 96 O2 Delivery Nasal Cannula Nasal Cannula Nasal Cannula Nasal Cannula O2 Flow Rate 4.0 4.0 4.0 4.0 02/15/19 02/15/19 02/15/19 02/15/19 14:00 15:00 16:00 16:00 Pulse 93 74 73 Resp 16 16 14 B/P (MAP) 111/61 (78) 106/60 (75) 108/61 (77) Pulse Ox 100 98 99 O2 Delivery Nasal Cannula Nasal Cannula Nasal Cannula Nasal Cannula O2 Flow Rate 4.0 2.0 2.0 2.0 02/15/19 02/15/19 02/15/19 02/15/19 17:00 17:11 18:00 19:00 Temp 97.6 97.6 97.6 97.6 Pulse 84 70 70 Resp 18 18 B/P (MAP) 106/58 (74) 101/62 (75) 98/59 (72) Pulse Ox 99 99 98 O2 Delivery Nasal Cannula Nasal Cannula Nasal Cannula Nasal Cannula O2 Flow Rate 2.0 2.0 2.0 2.0 02/15/19 02/15/19 02/15/19 02/15/19 20:00 20:00 21:00 22:00 Pulse 74 72 72 Resp 18 18 18 B/P (MAP) 101/61 (74) 103/59 (74) 97/59 (72) Pulse Ox 98 100 100 O2 Delivery Nasal Cannula Nasal Cannula Nasal Cannula Nasal Cannula O2 Flow Rate 2.0 2.0 2.0 2.0 02/15/19 02/15/19 02/16/1902/16/19 23:00 23:59 00:00 01:00 Pulse 72 74 76 Resp 18 18 18 B/P (MAP) 102/62 (75) 89/50 (63) 97/56 (70) Pulse Ox 100 100 100 O2 Delivery Nasal Cannula Nasal Cannula Nasal Cannula Nasal Cannula O2 Flow Rate 2.0 2.0 2.0 2.0 02/16/19 02/16/19 02/16/19 02/16/19 02:00 03:00 04:00 04:00 Temp 97.7 98.1 97.7 98.1 Pulse 74 72 75 Resp 18 18 18 B/P (MAP) 102/57 (72) 96/56 (69) 95/58 (70) Pulse Ox 100 98 100 O2 Delivery Nasal Cannula Nasal Cannula Nasal Cannula Nasal Cannula O2 Flow Rate 2.0 2.0 2.0 2.0 02/16/19 02/16/19 02/16/19 02/16/19 05:02 06:00 07:00 08:00 Temp 97.8 97.8 Pulse 73 73 74 Resp 18 18 16 B/P (MAP) 101/59 (73) 94/54 (67) 98/58 (71) Pulse Ox 99 97 99 O2 Delivery Nasal Cannula Nasal Cannula Nasal Cannula Nasal Cannula O2 Flow Rate 2.0 2.0 2.0 2.0 02/16/19 02/16/19 08:00 09:00 Temp 97.8 97.8 Pulse 94 73 Resp 19 18 B/P (MAP) 94/56 (69) 89/64 (72) Pulse Ox 99 99 O2 Delivery Nasal Cannula Nasal Cannula O2 Flow Rate 2.0 2.0 Intake and Output 02/15/19 02/15/19 02/16/19 15:00 23:00 07:00 Intake Total 250 ml 0 ml Output Total 1850 ml 540 ml 550 ml Balance -1850 ml -290 ml -550 ml Nutrition Consultation Dietary Evaluation: Recommendations by RD: Increase Calorie Intake, PPN/TPN Comments: REC TPN per followin g dextrose, 60 g AA, 20 g lipids REC advance diet as able pending APPLICATION DEVELOPER recommendations, goal diet ADA w/textures and liquids per APPLICATION DEVELOPER Expected Outcomes/Goals: Nutrition support + PO intake to meet >75% est needs Malnutrition Findings: Body Fat Depletion (Non Severe: Mild Depletion Weight Status: Appropriate ARGENIS HUGO MD Feb 16, 2019 10:45
--- NOTE | 2019-02-16 12:31 | PDOC ---
PROGRESS NOTES Chief Complaint Chief Complaint sepsis, with hypotension, N/v, diarrhea and H/o dysphagia/esophageal dysmotility chronic systolic CHF pleural effusions, anasarca, from CAD acute renal failure severe malnutrition chronic anemia, coagulopathy, transaminitis, deaf S/p antrectomy w/ Kb-en-Y and J tube placement/removal History of Present Illness History of Present Illness still on levephed deaf no event vitals better family here, plan discussed, consult GI, mult other consults following Vitals Vitals Vital Signs Date Time Temp Pulse Resp B/P (MAP) Pulse Ox O2 Delivery O2 Flow Rate FiO2 02/16/19 11:00 97.5 72 18 97/60 (72) 99 Nasal Cannula 2.0 97.5 Physical Exam Physical Exam GENERAL: Alert, oriented gentleman, not in any distress. HEENT: Both pupils are round and reacting. No conjunctival lesion, no lesion in the mouth. NECK: Supple, RT IJ looks ok LUNGS: Decreased breath sounds. HEART: S1, S2 regular. No gallop or murmur. ABDOMEN: Soft, nontender, no organomegaly. EXTREMITIES: edema + NEUROLOGIC: Other than poor hearing, the patient does move all the extremities. There is no other focal deficit. General: Alert, Cooperative, No acute distress, Other (cachectic) Heart: Regular rate (SR), Normal S1, Normal S2, No murmurs Lungs: Clear, Other Abdomen: Soft, No tenderness Extremities: No cyanosis, Other (anasarca) Skin: No breakdown, No significant lesion, Other (pale) Labs LABS Laboratory Tests Test 02/15/19 14:00 02/15/19 17:34 02/16/19 05:35 Body Fluid Source Pleural Body Fluid Color Yellow Body Fluid Clarity Clear Body Fluid Nucleated Cells 16 /cmm (Not Established) Body Fluid Mononuclear WBCs (%) 100 % Body Fluid Polymorphonuclear Cells 0 % Body Fluid Total RBCs Counted 4 /cmm (Not Established) Body Fluid Glucose 171 mg/dL (.) Body Fluid Total Protein 1.0 g/dL (.) Body Fluid Lactate Dehydrogenase 72 IU/L (.) Glucose (Fingerstick) 122 mg/dL (70-99) White Blood Count 4.9 x10^3/uL (4.0-11.0) Red Blood Count 3.05 x10^6/uL (4.30-5.70) Hemoglobin 9.4 g/dL (13.0-17.5) Hematocrit 27.7 % (39.0-53.0) Mean Corpuscular Volume 91 fL (79-100) Mean Corpuscular Hemoglobin 31 pg (25-35) Mean Corpuscular Hemoglobin Concent 34 g/dL (31-37) Red Cell Distribution Width 15.3 % (11.5-14.5) Platelet Count 114 x10^3/uL (140-400) Neutrophils (%) (Auto) 76 % (31-73) Lymphocytes (%) (Auto) 17 % (24-48) Monocytes (%) (Auto) 6 % (0-9) Eosinophils (%) (Auto) 0 % (0-3) Basophils (%) (Auto) 1 % (0-3) Neutrophils # (Auto) 3.7 x10^3/uL (1.8-7.7) Lymphocytes # (Auto) 0.8 x10^3/uL (1.0-4.8) Monocytes # (Auto) 0.3 x10^3/uL (0.0-1.1) Eosinophils # (Auto) 0.0 x10^3/uL (0.0-0.7) Basophils # (Auto) 0.0 x10^3/uL (0.0-0.2) Sodium Level 138 mmol/L (136-145) Potassium Level 3.6 mmol/L (3.5-5.1) Chloride Level 108 mmol/L (98-107) Carbon Dioxide Level 24 mmol/L (21-32) Anion Gap 6 (6-14) Blood Urea Nitrogen 18 mg/dL (8-26) Creatinine 1.8 mg/dL (0.7-1.3) Estimated GFR (Cockcroft-Gault) 35.9 BUN/Creatinine Ratio 10 (6-20) Glucose Level 120 mg/dL (70-99) Calcium Level 6.8 mg/dL (8.5-10.1) Total Bilirubin 1.0 mg/dL (0.2-1.0) Aspartate Amino Transf (AST/SGOT) 69 U/L (15-37) Alanine Aminotransferase (ALT/SGPT) 28 U/L (16-63) Alkaline Phosphatase 137 U/L (46-116) Total Protein 4.3 g/dL (6.4-8.2) Albumin 1.3 g/dL (3.4-5.0) Albumin/Globulin Ratio 0.4 (1.0-1.7) Assessment and Plan Assessmemt and Plan Problems Medical Problems: (1) Anemia Status: Acute (2) CHF (congestive heart failure) Status: Acute (3) Diarrhea Status: Acute (4) Elevated liver function tests Status: Acute (5) Hypoalbuminemia Status: Acute (6) Hypocalcemia Status: Acute (7) Pleural effusion Status: Acute (8) Renal insufficiency Status: Acute (9) Severe sepsis Status: Acute (10) Tachycardia Status: Acute Comment Review of Relevant I have reviewed the following items sukhwinder (where applicable) has been applied. Labs Laboratory Tests Test 02/14/19 15:40 02/14/19 19:05 02/15/19 04:30 02/15/19 07:40 White Blood Count 9.7 x10^3/uL (4.0-11.0) 7.4 x10^3/uL (4.0-11.0) Red Blood Count 3.84 x10^6/uL (4.30-5.70) 3.14 x10^6/uL (4.30-5.70) Hemoglobin 11.9 g/dL (13.0-17.5) 9.8 g/dL (13.0-17.5) Hematocrit 36.0 % (39.0-53.0) 28.7 % (39.0-53.0) Mean Corpuscular Volume 94 fL (79-100) 91 fL (79-100) Mean Corpuscular Hemoglobin 31 pg (25-35) 31 pg (25-35) Mean Corpuscular Hemoglobin Concent 33 g/dL (31-37) 34 g/dL (31-37) Red Cell Distribution Width 15.9 % (11.5-14.5) 15.4 % (11.5-14.5) Platelet Count 156 x10^3/uL (140-400) 129 x10^3/uL (140-400) Neutrophils (%) (Auto) 80 % (31-73) 84 % (31-73) Lymphocytes (%) (Auto) 13 % (24-48) 9 % (24-48) Monocytes (%) (Auto) 7 % (0-9) 7 % (0-9) Eosinophils (%) (Auto) 0 % (0-3) 0 % (0-3) Basophils (%) (Auto) 0 % (0-3) 0 % (0-3) Neutrophils # (Auto) 7.8 x10^3/uL (1.8-7.7) 6.2 x10^3/uL (1.8-7.7) Lymphocytes # (Auto) 1.2 x10^3/uL (1.0-4.8) 0.7 x10^3/uL (1.0-4.8) Monocytes # (Auto) 0.6 x10^3/uL (0.0-1.1) 0.5 x10^3/uL (0.0-1.1) Eosinophils # (Auto) 0.0 x10^3/uL (0.0-0.7) 0.0 x10^3/uL (0.0-0.7) Basophils # (Auto) 0.0 x10^3/uL (0.0-0.2) 0.0 x10^3/uL (0.0-0.2) Prothrombin Time 17.6 SEC (11.7-14.0) Prothromb Time International Ratio 1.5 (0.8-1.1) Sodium Level 139 mmol/L (136-145) 138 mmol/L (136-145) Potassium Level 3.8 mmol/L (3.5-5.1) 3.4 mmol/L (3.5-5.1) Chloride Level 104 mmol/L (98-107) 107 mmol/L (98-107) Carbon Dioxide Level 21 mmol/L (21-32) 22 mmol/L (21-32) Anion Gap 14 (6-14) 9 (6-14) Blood Urea Nitrogen 20 mg/dL (8-26) 20 mg/dL (8-26) Creatinine 2.3 mg/dL (0.7-1.3) 1.8 mg/dL (0.7-1.3) Estimated GFR (Cockcroft-Gault) 27.0 35.9 BUN/Creatinine Ratio 9 (6-20) Glucose Level 164 mg/dL (70-99) 157 mg/dL (70-99) Lactic Acid Level 7.6 mmol/L (0.4-2.0) 4.3 mmol/L (0.4-2.0) 1.8 mmol/L (0.4-2.0) Calcium Level 7.7 mg/dL (8.5-10.1) 7.0 mg/dL (8.5-10.1) Total Bilirubin 1.2 mg/dL (0.2-1.0) Aspartate Amino Transf (AST/SGOT) 233 U/L (15-37) Alanine Aminotransferase (ALT/SGPT) 52 U/L (16-63) Alkaline Phosphatase 240 U/L (46-116) Troponin I Quantitative < 0.017 ng/mL (0.000-0.055) SB-Kdm-S-Type Natriuretic Peptide 2822 pg/mL (0-449) Total Protein 5.5 g/dL (6.4-8.2) Albumin 1.4 g/dL (3.4-5.0) Albumin/Globulin Ratio 0.3 (1.0-1.7) Magnesium Level 1.9 mg/dL (1.8-2.4) Iron Level 48 ug/dL (65-175) Total Iron Binding Capacity 59 ug/dL (250-450) Iron Saturation 81 % (15-34) Vitamin B12 Level > 2000 pg/mL (247-911) Urine Collection Type Unknown Urine Color Valery Urine Clarity Clear Urine pH 5.0 Urine Specific [place] >=1.030 Urine Protein Negative mg/dL (NEG-TRACE) Urine Glucose (UA) Negative mg/dL (NEG) Urine Ketones (Stick) Negative mg/dL (NEG) Urine Blood Negative (NEG) Urine Nitrite Negative (NEG) Urine Bilirubin Small (NEG) Urine Urobilinogen Dipstick 0.2 mg/dL (0.2 mg/dL) Urine Leukocyte Esterase Negative (NEG) Urine RBC 0 /HPF (0-2) Urine WBC 1-4 /HPF (0-4) Urine Squamous Epithelial Cells Occ /LPF Urine Bacteria Few /HPF (0-FEW) Urine Hyaline Casts Moderate /HPF Urine Mucus Marked /LPF Test 02/15/19 14:00 02/15/19 17:34 02/16/19 05:35 Body Fluid Source Pleural Body Fluid Color Yellow Body Fluid Clarity Clear Body Fluid Nucleated Cells 16 /cmm (Not Established) Body Fluid Mononuclear WBCs (%) 100 % Body Fluid Polymorphonuclear Cells 0 % Body Fluid Total RBCs Counted 4 /cmm (Not Established) Body Fluid Glucose 171 mg/dL (.) Body Fluid Total Protein 1.0 g/dL (.) Body Fluid Lactate Dehydrogenase 72 IU/L (.) Glucose (Fingerstick) 122 mg/dL (70-99) White Blood Count 4.9 x10^3/uL (4.0-11.0) Red Blood Count 3.05 x10^6/uL (4.30-5.70) Hemoglobin 9.4 g/dL (13.0-17.5) Hematocrit 27.7 % (39.0-53.0) Mean Corpuscular Volume 91 fL (79-100) Mean Corpuscular Hemoglobin 31 pg (25-35) Mean Corpuscular Hemoglobin Concent 34 g/dL (31-37) Red Cell Distribution Width 15.3 % (11.5-14.5) Platelet Count 114 x10^3/uL (140-400) Neutrophils (%) (Auto) 76 % (31-73) Lymphocytes (%) (Auto) 17 % (24-48) Monocytes (%) (Auto) 6 % (0-9) Eosinophils (%) (Auto) 0 % (0-3) Basophils (%) (Auto) 1 % (0-3) Neutrophils # (Auto) 3.7 x10^3/uL (1.8-7.7) Lymphocytes # (Auto) 0.8 x10^3/uL (1.0-4.8) Monocytes # (Auto) 0.3 x10^3/uL (0.0-1.1) Eosinophils # (Auto) 0.0 x10^3/uL (0.0-0.7) Basophils # (Auto) 0.0 x10^3/uL (0.0-0.2) Sodium Level 138 mmol/L (136-145) Potassium Level 3.6 mmol/L (3.5-5.1) Chloride Level 108 mmol/L (98-107) Carbon Dioxide Level 24 mmol/L (21-32) Anion Gap 6 (6-14) Blood Urea Nitrogen 18 mg/dL (8-26) Creatinine 1.8 mg/dL (0.7-1.3) Estimated GFR (Cockcroft-Gault) 35.9 BUN/Creatinine Ratio 10 (6-20) Glucose Level 120 mg/dL (70-99) Calcium Level 6.8 mg/dL (8.5-10.1) Total Bilirubin 1.0 mg/dL (0.2-1.0) Aspartate Amino Transf (AST/SGOT) 69 U/L (15-37) Alanine Aminotransferase (ALT/SGPT) 28 U/L (16-63) Alkaline Phosphatase 137 U/L (46-116) Total Protein 4.3 g/dL (6.4-8.2) Albumin 1.3 g/dL (3.4-5.0) Albumin/Globulin Ratio 0.4 (1.0-1.7) Laboratory Tests Test 02/15/19 14:00 02/15/19 17:34 02/16/19 05:35 Body Fluid Source Pleural Body Fluid Color Yellow Body Fluid Clarity Clear Body Fluid Nucleated Cells 16 /cmm (Not Established) Body Fluid Mononuclear WBCs (%) 100 % Body Fluid Polymorphonuclear Cells 0 % Body Fluid Total RBCs Counted 4 /cmm (Not Established) Body Fluid Glucose 171 mg/dL (.) Body Fluid Total Protein 1.0 g/dL (.) Body Fluid Lactate Dehydrogenase 72 IU/L (.) Glucose (Fingerstick) 122 mg/dL (70-99) White Blood Count 4.9 x10^3/uL (4.0-11.0) Red Blood Count 3.05 x10^6/uL (4.30-5.70) Hemoglobin 9.4 g/dL (13.0-17.5) Hematocrit 27.7 % (39.0-53.0) Mean Corpuscular Volume 91 fL (79-100) Mean Corpuscular Hemoglobin 31 pg (25-35) Mean Corpuscular Hemoglobin Concent 34 g/dL (31-37) Red Cell Distribution Width 15.3 % (11.5-14.5) Platelet Count 114 x10^3/uL (140-400) Neutrophils (%) (Auto) 76 % (31-73) Lymphocytes (%) (Auto) 17 % (24-48) Monocytes (%) (Auto) 6 % (0-9) Eosinophils (%) (Auto) 0 % (0-3) Basophils (%) (Auto) 1 % (0-3) Neutrophils # (Auto) 3.7 x10^3/uL (1.8-7.7) Lymphocytes # (Auto) 0.8 x10^3/uL (1.0-4.8) Monocytes # (Auto) 0.3 x10^3/uL (0.0-1.1) Eosinophils # (Auto) 0.0 x10^3/uL (0.0-0.7) Basophils # (Auto) 0.0 x10^3/uL (0.0-0.2) Sodium Level 138 mmol/L (136-145) Potassium Level 3.6 mmol/L (3.5-5.1) Chloride Level 108 mmol/L (98-107) Carbon Dioxide Level 24 mmol/L (21-32) Anion Gap 6 (6-14) Blood Urea Nitrogen 18 mg/dL (8-26) Creatinine 1.8 mg/dL (0.7-1.3) Estimated GFR (Cockcroft-Gault) 35.9 BUN/Creatinine Ratio 10 (6-20) Glucose Level 120 mg/dL (70-99) Calcium Level 6.8 mg/dL (8.5-10.1) Total Bilirubin 1.0 mg/dL (0.2-1.0) Aspartate Amino Transf (AST/SGOT) 69 U/L (15-37) Alanine Aminotransferase (ALT/SGPT) 28 U/L (16-63) Alkaline Phosphatase 137 U/L (46-116) Total Protein 4.3 g/dL (6.4-8.2) Albumin 1.3 g/dL (3.4-5.0) Albumin/Globulin Ratio 0.4 (1.0-1.7) Microbiology 02/14/19 Blood Culture - Preliminary, Resulted NO GROWTH AFTER 1 DAY Medications Current Medications Sodium Chloride 1,000 ml @ 1,000 mls/hr Q1H IV Last administered on 02/14/19at 15:55; Start 02/14/19 at 15:34; Stop 02/14/19 at 16:33; Status DC Ondansetron HCl (Zofran) 4 mg 1X ONCE IV Last administered on 02/14/19at 16:09; Start 02/14/19 at 16:30; Stop 02/14/19 at 16:31; Status DC Sodium Chloride 1,000 ml @ 1,000 mls/hr 1X ONCE IV Last administered on 02/14/19at 17:27; Start 02/14/19 at 16:45; Stop 02/14/19 at 17:44; Status DC Piperacillin Sod/ Tazobactam Sod 3.375 gm/Sodium Chloride 50 ml @ 100 mls/hr 1X ONCE IV Last administered on 02/14/19at 17:27; Start 02/14/19 at 18:00; Stop 02/14/19 at 18:29; Status DC Vancomycin HCl 250 ml @ 250 mls/hr 1X ONCE IV Last administered on 02/14/19at 17:36; Start 02/14/19 at 17:00; Stop 02/14/19 at 17:59; Status DC Levofloxacin/ Dextrose 150 ml @ 100 mls/hr 1X ONCE IV Last administered on 02/14/19at 18:17; Start 02/14/19 at 16:45; Stop 02/14/19 at 18:14; Status DC Sodium Chloride 1,000 ml @ 150 mls/hr Q6H40M IV ; Start 02/14/19 at 17:05; Stop 02/14/19 at 21:10; Status DC Dopamine HCl/ Dextrose 250 ml @ 10.121 mls/ hr CONT PRN IV SEE I/O RECORD Last administered on 02/14/19at 20:32; Start 02/14/19 at 20:00 Piperacillin Sod/ Tazobactam Sod 3.375 gm/Sodium Chloride 50 ml @ 100 mls/hr Q8HRS IV Last administered on 02/16/19at 06:00; Start 02/14/19 at 22:00 Linezolid/Dextrose 300 ml @ 300 mls/hr Q12HR IV Last administered on 9at 09:10; Start 02/14/19 at 21:00 Enoxaparin Sodium (Lovenox 30mg Syringe) 30 mg Q24H SQ Last administered on 02/15/19at 23:24; Start 02/14/19 at 21:00 Sodium Chloride 1,000 ml @ 75 mls/hr [id number] IV Last administered on 02/16/19at 06:00; Start 02/15/19 at 18:00 Pantoprazole Sodium (Protonix) 40 mg BIDAC PO Last administered on 02/15/19 08:43; Start 02/15/19 at 07:30; Stop 02/15/19 at 13:49; Status DC Aspirin (Children'S Aspirin) 81 mg DAILYWBKFT PO Last administered on 02/15/19 08:43; Start 02/15/19 at 08:00; Stop 02/15/19 at 09:29; Status DC Citalopram Hydrobromide (CeleXA) 20 mg DAILY PO Last administered on 02/16/19 09:09; Start 02/15/19 at 09:00 Norepinephrine Bitartrate 250 ml @ 12.97 mls/ hr CONT PRN IV SEE I/O RECORD Last administered on 02/15/19 22:48; Start 02/14/19 at 21:15 Sodium Chloride 500 ml @ 500 mls/hr 1X ONCE IV Last administered on at 21:40; Start 02/14/19 at 21:15; Stop 02/14/19 at 22:14; Status DC Ondansetron HCl (Zofran) 4 mg PRN Q6HRS PRN IVP NAUSEA/VOMITING Last administered on 02/15/19 15:42; Start 02/14/19 at 21:30 Albumin Human 100 ml @ 100 mls/hr 1X ONCE IV Last administered on 02/15/19at 10:37; Start 02/15/19 at 09:15; Stop 02/15/19 at 10:14; Status DC Furosemide (Lasix) 20 mg 1X ONCE IVP Last administered on 02/15/19 11:42; Start 02/15/19 at 10:15; Stop 02/15/19 at 10:16; Status DC Aspirin (Ecotrin) 81 mg DAILYWBKFT PO Last administered on 02/16/19 09:09; Start 02/16/19 at 08:00 Potassium Chloride/Water 100 ml @ 100 mls/hr Q1H IV Last administered on 02/15/19 14:53; Start 02/15/19 at 12:00; Stop 02/15/19 at 15:59; Status DC Lactobacillus Rhamnosus (Culturelle) 1 cap BID PO Last administered on 02/16/19at 09:10; Start 02/15/19 at 21:00 Pantoprazole Sodium (PROTONIX VIAL for IV PUSH) 40 mg BIDAC IVP Last administered on 02/16/19at 09:09; Start 02/15/19 at 16:30 Active Scripts Active Aspirin Ec (Aspirin) 81 Mg Tablet.dr 81 Mg PO DAILYWBKFT 30 Days Reported Protonix (Pantoprazole Sodium) 20 Mg Tablet.dr 40 Mg PO BID Escitalopram Oxalate 10 Mg Tablet 10 Mg PO DAILY Vitals/I & O Vital Sign - Last 24 Hours 02/15/19 02/15/19 02/15/19 02/15/19 13:00 14:00 15:00 16:00 Temp 97.6 97.6 Pulse 83 93 74 Resp 16 16 16 B/P (MAP) 120/66 (84) 111/61 (78) 106/60 (75) Pulse Ox 96 100 98 O2 Delivery Nasal Cannula Nasal Cannula Nasal Cannula Nasal Cannula O2 Flow Rate 4.0 4.0 2.0 2.0 02/15/19 02/15/19 02/15/19 02/15/19 16:00 17:00 17:11 18:00 Temp 97.6 97.6 97.6 97.6 Pulse 73 84 70 Resp 14 18 B/P (MAP) 108/61 (77) 106/58 (74) 101/62 (75) Pulse Ox 99 99 99 O2 Delivery Nasal Cannula Nasal Cannula Nasal Cannula Nasal Cannula O2 Flow Rate 2.0 2.0 2.0 2.0 02/15/19 02/15/19 02/15/19 02/15/19 19:00 20:00 20:00 21:00 Pulse 70 74 72 Resp 18 18 18 B/P (MAP) 98/59 (72) 101/61 (74) 103/59 (74) Pulse Ox 98 98 100 O2 Delivery Nasal Cannula Nasal Cannula Nasal Cannula Nasal Cannula O2 Flow Rate 2.0 2.0 2.0 2.0 02/15/19 02/15/19 02/15/19 02/16/19 22:00 23:00 23:59 00:00 Pulse 72 72 74 Resp 18 18 18 B/P (MAP) 97/59 (72) 102/62 (75) 89/50 (63) Pulse Ox 100 100 100 O2 Delivery Nasal Cannula Nasal Cannula Nasal Cannula Nasal Cannula O2 Flow Rate 2.0 2.0 2.0 2.0 02/16/19 02/16/19 02/16/19 02/16/19 01:00 02:00 03:00 04:00 Temp 97.7 97.7 Pulse 76 74 72 Resp 18 18 18 B/P (MAP) 97/56 (70) 102/57 (72) 96/56 (69) Pulse Ox 100 100 98 O2 Delivery Nasal Cannula Nasal Cannula Nasal Cannula Nasal Cannula O2 Flow Rate 2.0 2.0 2.0 2.0 02/16/19 02/16/19 02/16/19 02/16/19 04:00 05:02 06:00 07:00 Temp 98.1 97.8 98.1 97.8 Pulse 75 73 73 74 Resp 18 18 18 16 B/P (MAP) 95/58 (70) 101/59 (73) 94/54 (67) 98/58 (71) Pulse Ox 100 99 97 99 O2 Delivery Nasal Cannula Nasal Cannula Nasal Cannula Nasal Cannula O2 Flow Rate 2.0 2.0 2.0 2.0 02/16/19 02/16/19 02/16/19 02/16/19 08:00 08:00 09:00 10:00 Temp 97.8 97.5 97.8 97.5 Pulse 94 73 74 Resp 19 18 18 B/P (MAP) 94/56 (69) 89/64 (72) 99/56 (70) Pulse Ox 99 99 99 O2 Delivery Nasal Cannula Nasal Cannula Nasal Cannula Nasal Cannula O2 Flow Rate 2.0 2.0 2.0 2.0 02/16/19 11:00 Temp 97.5 97.5 Pulse 72 Resp 18 B/P (MAP) 97/60 (72) Pulse Ox 99 O2 Delivery Nasal Cannula O2 Flow Rate 2.0 Intake and Output 02/15/19 02/15/19 02/16/19 14:59 22:59 06:59 Intake Total 250 ml 0 ml Output Total 1750 ml 640 ml 425 ml Balance -1750 ml -390 ml -425 ml Nutrition Consultation Dietary Evaluation: Recommendations by RD: Increase Calorie Intake, PPN/TPN Comments: REC TPN per followin g dextrose, 60 g AA, 20 g lipids REC advance diet as able pending [employer] recommendations, goal diet ADA w/textures and liquids per [employer] Expected Outcomes/Goals: Nutrition support + PO intake to meet >75% est needs Malnutrition Findings: Body Fat Depletion (Non Severe: Mild Depletion Weight Status: Appropriate JENNIFER CORTÉS MD Feb 16, 2019 12:31
--- NOTE | 2019-02-16 13:17 | PDOC ---
SUBJECTIVE ROS Doing better per RN, Refusing food, states he is not hungry S/P thoracentesis , UOP improved OBJECTIVE Vital Signs Vital Signs Date Time Temp Pulse Resp B/P (MAP) Pulse Ox O2 Delivery O2 Flow Rate FiO2 02/16/19 12:00 97.4 73 18 92/62 (72) 99 Nasal Cannula 1.0 97.4 I & 0 Intake and Output 02/16/19 07:00 Intake Total 250 ml Output Total 2940 ml Balance -2690 ml Intake Oral 250 ml Output Urine Total 1440 ml Drainage Total 1500 ml PHYSICAL EXAM Physical Exam General: No acute distress,cachectic HEENT: OM dry , On O2 by NC Neck supple Lungs: CTA , decreased BS bases Heart: Regular rate , Normal S1, Normal S2, No murmurs Abdomen: Soft, No tenderness Extremities: 2-3 + EDEMA ( 2/2 severe hypoalbuminemia) Skin: No rash Neuro: grossly normal - Perrin + DIAGNOSIS/ASSESSMENT Assessment & Plan ADAM - Pre-renal 2/2 diarrhea, Poor PO intake Renal function improved - probably at his baseline , UOP improved CT - Cyst vs Hydronephrosis Rt kidney per Radiologist UA unremarkable except for hyaline casts Supportive care, Monitor, Avoid Nephrotoxins Hypokalemia- Normal K Replace as needed Hypocalcemia- Corrected for Glucose is normal CKD stage 3 -Baseline Renal function per [facility] records 1.4-1.7, Pleural Effusion- Rt large S/P Thoracentesis 1.5 LTS 02/15 Hypotension- pressors Anasarca - 2/2 Severe protein malnutrition / Severe HypoAlbuminemia 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 IV lasix x 1 per cardiology Weakness/anorexia/cachexia Chronic anemia DM2 Hx of antrectomy w/ Kb-en-Y and PUD Discussed with RN COMMENT/RELEVANT DATA Meds Current Medications Medications (Trade) Dose Ordered Sig/Enrrique Start Time Stop Time Status Last Admin Dose Admin Albumin Human 100 ml @ 100 mls/hr 1X ONCE 02/15/19 09:15 02/15/19 10:14 DC 02/15/19 10:37 100 MLS/HR Aspirin (Children'S Aspirin) 81 mg DAILYWBKFT 02/15/19 08:00 02/15/19 09:29 DC 02/15/19 08:43 81 MG Aspirin (Ecotrin) 81 mg DAILYWBKFT 02/16/19 08:00 02/16/19 09:09 81 MG Citalopram Hydrobromide (CeleXA) 20 mg DAILY 02/15/19 09:00 02/16/19 09:09 20 MG Dopamine HCl/ Dextrose 250 ml @ 10.121 mls/ hr CONT PRN 02/14/19 20:00 02/14/19 20:32 13 MLS/HR Enoxaparin Sodium (Lovenox 30mg Syringe) 30 mg Q24H 02/14/19 21:00 02/15/19 23:24 30 MG Furosemide (Lasix) 20 mg 1X ONCE 02/15/19 10:15 02/15/19 10:16 DC 02/15/19 11:42 20 MG Lactobacillus Rhamnosus (Culturelle) 1 cap BID 02/15/19 21:00 02/16/19 09:10 1 CAP Levofloxacin/ Dextrose 150 ml @ 100 mls/hr 1X ONCE 02/14/19 16:45 02/14/19 18:14 DC 02/14/19 18:17 100 MLS/HR Linezolid/Dextrose 300 ml @ 300 mls/hr Q12HR 02/14/19 21:00 02/16/19 09:10 300 MLS/HR Norepinephrine Bitartrate 250 ml @ 12.97 mls/ hr CONT PRN 02/14/19 21:15 02/15/19 22:48 12.97 MLS/HR Ondansetron HCl (Zofran) 4 mg PRN Q6HRS PRN 02/14/19 21:30 02/15/19 15:42 4 MG Pantoprazole Sodium (PROTONIX VIAL for IV PUSH) 40 mg BIDAC 02/15/19 16:30 02/16/19 09:09 40 MG Pantoprazole Sodium (Protonix) 40 mg BIDAC 02/15/19 07:30 02/15/19 13:49 DC 02/15/19 08:43 40 MG Piperacillin Sod/ Tazobactam Sod 3.375 gm/Sodium Chloride 50 ml @ 100 mls/hr Q8HRS 02/14/19 22:00 02/16/19 06:00 100 MLS/HR Potassium Chloride/Water 100 ml @ 100 mls/hr Q1H 02/15/19 12:00 02/15/19 15:59 DC 02/15/19 14:53 100 MLS/HR Sodium Chloride 500 ml @ 500 mls/hr 1X ONCE 02/14/19 21:15 02/14/19 22:14 DC 02/14/19 21:40 500 MLS/HR Vancomycin HCl 250 ml @ 250 mls/hr 1X ONCE 02/14/19 17:00 02/14/19 17:59 DC 02/14/19 17:36 250 MLS/HR Lab Laboratory Tests Test 02/15/19 14:00 02/15/19 17:34 02/16/19 05:35 Body Fluid Source Pleural Body Fluid Color Yellow Body Fluid Clarity Clear Body Fluid Nucleated Cells 16 /cmm (Not Established) Body Fluid Mononuclear WBCs (%) 100 % Body Fluid Polymorphonuclear Cells 0 % Body Fluid Total RBCs Counted 4 /cmm (Not Established) Body Fluid Glucose 171 mg/dL (.) Body Fluid Total Protein 1.0 g/dL (.) Body Fluid Lactate Dehydrogenase 72 IU/L (.) Glucose (Fingerstick) 122 mg/dL (70-99) White Blood Count 4.9 x10^3/uL (4.0-11.0) Red Blood Count 3.05 x10^6/uL (4.30-5.70) Hemoglobin 9.4 g/dL (13.0-17.5) Hematocrit 27.7 % (39.0-53.0) Mean Corpuscular Volume 91 fL (79-100) Mean Corpuscular Hemoglobin 31 pg (25-35) Mean Corpuscular Hemoglobin Concent 34 g/dL (31-37) Red Cell Distribution Width 15.3 % (11.5-14.5) Platelet Count 114 x10^3/uL (140-400) Neutrophils (%) (Auto) 76 % (31-73) Lymphocytes (%) (Auto) 17 % (24-48) Monocytes (%) (Auto) 6 % (0-9) Eosinophils (%) (Auto) 0 % (0-3) Basophils (%) (Auto) 1 % (0-3) Neutrophils # (Auto) 3.7 x10^3/uL (1.8-7.7) Lymphocytes # (Auto) 0.8 x10^3/uL (1.0-4.8) Monocytes # (Auto) 0.3 x10^3/uL (0.0-1.1) Eosinophils # (Auto) 0.0 x10^3/uL (0.0-0.7) Basophils # (Auto) 0.0 x10^3/uL (0.0-0.2) Sodium Level 138 mmol/L (136-145) Potassium Level 3.6 mmol/L (3.5-5.1) Chloride Level 108 mmol/L (98-107) Carbon Dioxide Level 24 mmol/L (21-32) Anion Gap 6 (6-14) Blood Urea Nitrogen 18 mg/dL (8-26) Creatinine 1.8 mg/dL (0.7-1.3) Estimated GFR (Cockcroft-Gault) 35.9 BUN/Creatinine Ratio 10 (6-20) Glucose Level 120 mg/dL (70-99) Calcium Level 6.8 mg/dL (8.5-10.1) Total Bilirubin 1.0 mg/dL (0.2-1.0) Aspartate Amino Transf (AST/SGOT) 69 U/L (15-37) Alanine Aminotransferase (ALT/SGPT) 28 U/L (16-63) Alkaline Phosphatase 137 U/L (46-116) Total Protein 4.3 g/dL (6.4-8.2) Albumin 1.3 g/dL (3.4-5.0) Albumin/Globulin Ratio 0.4 (1.0-1.7) Results All relevant outside records, renal labs, imaging studies, telemetry/EKG's were reviewed. DARA ROGERS MD Feb 16, 2019 13:17
[2019-02-16] MEDS ORDERED: fentaNYL PF VIAL 100 MCG/2 ML VIAL IV PRN ×2 (17:30)
[2019-02-16] MEDS ORDERED: MIDAZOLAM 100mg/100ml NS BAG 100 ML IV PRN (17:30)
[2019-02-16] MEDS ORDERED: PROPOFOL 100 ML IV PRN (17:30)
[2019-02-16] MEDS ORDERED: MORPHINE SULFATE 2 MG/ML VIAL. IV PRN (17:30)
[2019-02-16] MEDS ORDERED: MORPHINE SULFATE 4 MG/ML VIAL. IV PRN (17:30)
[2019-02-16] MEDS ORDERED: FAMOTIDINE 20 MG/2 ML VIAL IVP SCH (21:00)
[2019-02-16] MEDS ORDERED: ENOXAPARIN 40 MG/0.4 ML SYRINGE. SQ SCH (21:00)
[2019-02-16] MEDS ORDERED: CHLORHEXIDINE 0.12% 15 ML MOUTHWASH. MM SCH (21:00)
[2019-02-16] MEDS: ENOXAPARIN 30 MG/0.3 ML SYRINGE. SQ SCH (21:18)
--- NOTE | 2019-02-16 22:26 | EKG ---
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
[2019-02-16] MEDS: NOREPINEPHRIN 8MG/250ML PREMIX 250 ML IV PRN (23:40)
[2019-02-17] VITALS (24 sets, daily range): BP systolic 79–98; BP diastolic 41–60
[2019-02-17] MEDS: IV NORMAL SALINE 1000ML BAG 1,000 ML IV SCH ×4 (02:59→22:01)
[2019-02-17] MEDS: PIPERACILLIN/TAZOBACTAM 3.375 GM in IV NORMAL SALINE 50ML 50 ML IV SCH ×3 (05:59→22:01)
--- NOTE | 2019-02-17 06:26 | PDOC ---
PULMONARY PROGRESS NOTES Subjective very hard of hearing, no sob, no cough, on levo Vitals Vital Signs Date Time Temp Pulse Resp B/P (MAP) Pulse Ox O2 Delivery O2 Flow Rate FiO2 02/17/19 04:00 Room Air 02/17/19 00:01 1.0 02/16/19 23:00 80 87/50 (62) 99 02/16/19 20:00 97.9 20 97.9 Comments ros as mentioned as above other sys otherwise neg ROS: No Nausea General: Alert HEENT: Other (nc at perll nose throat clear neck no lad no thyromegaly) Lungs: Crackles, Other (dul at bases) Cardiovascular: S1, S2 Abdomen: Soft, Non-tender, Other (no mass) Neuro Exam: Alert Skin: Warm Labs Laboratory Tests Test 02/15/19 07:40 02/15/19 14:00 02/15/19 17:34 02/16/19 05:35 Urine Collection Type Unknown Urine Color Valery Urine Clarity Clear Urine pH 5.[address] >=1.030 Urine Protein Negative mg/dL (NEG-TRACE) Urine Glucose (UA) Negative mg/dL (NEG) Urine Ketones (Stick) Negative mg/dL (NEG) Urine Blood Negative (NEG) Urine Nitrite Negative (NEG) Urine Bilirubin Small (NEG) Urine Urobilinogen Dipstick 0.2 mg/dL (0.2 mg/dL) Urine Leukocyte Esterase Negative (NEG) Urine RBC 0 /HPF (0-2) Urine WBC 1-4 /HPF (0-4) Urine Squamous Epithelial Cells Occ /LPF Urine Bacteria Few /HPF (0-FEW) Urine Hyaline Casts Moderate /HPF Urine Mucus Marked /LPF Body Fluid Source Pleural Body Fluid Color Yellow Body Fluid Clarity Clear Body Fluid Nucleated Cells 16 /cmm (Not Established) Body Fluid Mononuclear WBCs (%) 100 % Body Fluid Polymorphonuclear Cells 0 % Body Fluid Total RBCs Counted 4 /cmm (Not Established) Body Fluid Glucose 171 mg/dL (.) Body Fluid Total Protein 1.0 g/dL (.) Body Fluid Lactate Dehydrogenase 72 IU/L (.) Glucose (Fingerstick) 122 mg/dL (70-99) White Blood Count 4.9 x10^3/uL (4.0-11.0) Red Blood Count 3.05 x10^6/uL (4.30-5.70) Hemoglobin 9.4 g/dL (13.0-17.5) Hematocrit 27.7 % (39.0-53.0) Mean Corpuscular Volume 91 fL (79-100) Mean Corpuscular Hemoglobin 31 pg (25-35) Mean Corpuscular Hemoglobin Concent 34 g/dL (31-37) Red Cell Distribution Width 15.3 % (11.5-14.5) Platelet Count 114 x10^3/uL (140-400) Neutrophils (%) (Auto) 76 % (31-73) Lymphocytes (%) (Auto) 17 % (24-48) Monocytes (%) (Auto) 6 % (0-9) Eosinophils (%) (Auto) 0 % (0-3) Basophils (%) (Auto) 1 % (0-3) Neutrophils # (Auto) 3.7 x10^3/uL (1.8-7.7) Lymphocytes # (Auto) 0.8 x10^3/uL (1.0-4.8) Monocytes # (Auto) 0.3 x10^3/uL (0.0-1.1) Eosinophils # (Auto) 0.0 x10^3/uL (0.0-0.7) Basophils # (Auto) 0.0 x10^3/uL (0.0-0.2) Sodium Level 138 mmol/L (136-145) Potassium Level 3.6 mmol/L (3.5-5.1) Chloride Level 108 mmol/L (98-107) Carbon Dioxide Level 24 mmol/L (21-32) Anion Gap 6 (6-14) Blood Urea Nitrogen 18 mg/dL (8-26) Creatinine 1.8 mg/dL (0.7-1.3) Estimated GFR (Cockcroft-Gault) 35.9 BUN/Creatinine Ratio 10 (6-20) Glucose Level 120 mg/dL (70-99) Calcium Level 6.8 mg/dL (8.5-10.1) Total Bilirubin 1.0 mg/dL (0.2-1.0) Aspartate Amino Transf (AST/SGOT) 69 U/L (15-37) Alanine Aminotransferase (ALT/SGPT) 28 U/L (16-63) Alkaline Phosphatase 137 U/L (46-116) Total Protein 4.3 g/dL (6.4-8.2) Albumin 1.3 g/dL (3.4-5.0) Albumin/Globulin Ratio 0.4 (1.0-1.7) Medications Active Scripts Medications Dose Route/Sig Max Daily Dose Days Date Category Aspirin Ec (Aspirin) 81 Mg Tablet.dr 81 Mg PO DAILYWBKFT 30 10/06/17 Rx Protonix (Pantoprazole Sodium) 20 Mg Tablet.dr 40 Mg PO BID 06/29/17 Reported Escitalopram Oxalate 10 Mg Tablet 10 Mg PO DAILY 03/30/17 Reported Comments cxr reviewed Right-sided pleural effusion is much smaller in size after thoracentesis. No pneumothorax is seen. There is significant improved aeration of the right lower lung zone. Small left-sided pleural effusion and associated consolidative left lung base infiltrate is still evident and is unchanged. Impression . IMPRESSION: 1. Large right-sided effusion, s/p thoracentesis, transudate, due to chf. 2. Septic/cardiogenic shock. 3. Elevated liver chemistries. 4. [id number] congestive heart failure, systolic. 5. Renal insufficiency. 6. Protein malnutrition, present upon admission. echo The systolic function is mildly to moderately impaired. The Ejection Fraction is 40-45%. There is global hypokinesis of the left ventricle. Septal motion suggestive of conduction defect. Plan . PLAN: 1. s/p thoracentesis. transudate, fu cxs cytology 2. Continue IV antibiotics per Infectious Disease service. 3. Follow Cardiology input. 4. keep I<O, monitor k, cr 5. 02 titration to keep sat 92% 6. pressors to keep map>65 discussed w [facility] L[facility] MD Feb 17, 2019 06:26
--- NOTE | 2019-02-17 08:34 | PDOC ---
Infectious Disease Note Subjective: Subjective pt is doing ok no f/c/n/v occ loose bm d/w rn still on pressors ROS: ROS Negative otherwise. Vital Signs: Vital Signs Vital Signs Date Time Temp Pulse Resp B/P (MAP) Pulse Ox O2 Delivery O2 Flow Rate FiO2 02/17/19 06:00 76 95/50 (65) 98 Room Air 02/17/19 04:00 98.1 98.1 02/17/19 02:00 1.0 02/16/19 20:00 20 Physical Exam: PHYSICAL EXAM GENERAL: Alert, oriented gentleman, not in any distress. HEENT: Both pupils are round and reacting. No conjunctival lesion, no lesion in the mouth. NECK: Supple, RT IJ looks ok LUNGS: Decreased breath sounds. HEART: S1, S2 regular. No gallop or murmur. ABDOMEN: Soft, nontender, no organomegaly. EXTREMITIES: edema + NEUROLOGIC: Other than poor hearing, the patient does move all the extremities. There is no other focal deficit. Medications: Inpatient Meds: Current Medications Medications (Trade) Dose Ordered Sig/Enrrique Start Time Stop Time Status Last Admin Dose Admin Albumin Human 100 ml @ 100 mls/hr 1X ONCE 02/15/19 09:15 02/15/19 10:14 DC 02/15/19 10:37 100 MLS/HR Aspirin (Children'S Aspirin) 81 mg DAILYWBKFT 02/15/19 08:00 02/15/19 09:29 DC 02/15/19 08:43 81 MG Aspirin (Ecotrin) 81 mg DAILYWBKFT 02/16/19 08:00 02/16/19 09:09 81 MG Chlorhexidine Gluconate (Peridex) 15 ml BID 02/16/19 21:00 Cancel Citalopram Hydrobromide (CeleXA) 20 mg DAILY 02/15/19 09:00 02/16/19 09:09 20 MG Dopamine HCl/ Dextrose 250 ml @ 10.121 mls/ hr CONT PRN 02/14/19 20:00 02/14/19 20:32 13 MLS/HR Enoxaparin Sodium (Lovenox 30mg Syringe) 30 mg Q24H 02/14/19 21:00 02/16/19 21:18 30 MG Enoxaparin Sodium (Lovenox 40mg Syringe) 40 mg Q12HR 02/16/19 21:00 UNV Famotidine (Pepcid Vial) 20 mg QHS 02/16/19 21:00 Cancel Fentanyl Citrate (Fentanyl 2ml Vial) 50 mcg PRN Q1HR PRN 02/16/19 17:30 Cancel Furosemide (Lasix) 20 mg 1X ONCE 02/15/19 10:15 02/15/19 10:16 DC 02/15/19 11:42 20 MG Lactobacillus Rhamnosus (Culturelle) 1 cap BID 02/15/19 21:00 02/16/19 21:18 1 CAP Levofloxacin/ Dextrose 150 ml @ 100 mls/hr 1X ONCE 02/14/19 16:45 02/14/19 18:14 DC 02/14/19 18:17 100 MLS/HR Linezolid/Dextrose 300 ml @ 300 mls/hr Q12HR 02/14/19 21:00 02/16/19 21:18 300 MLS/HR Midazolam HCl 100 ml @ 5 mls/hr CONT PRN 02/16/19 17:30 Cancel Morphine Sulfate (Morphine Sulfate) 4 mg PRN Q1HR PRN 02/16/19 17:30 Cancel Norepinephrine Bitartrate 250 ml @ 12.97 mls/ hr CONT PRN 02/14/19 21:15 02/16/19 23:40 12.97 MLS/HR Ondansetron HCl (Zofran) 4 mg PRN Q6HRS PRN 02/14/19 21:30 02/15/19 15:42 4 MG Pantoprazole Sodium (PROTONIX VIAL for IV PUSH) 40 mg BIDAC 02/15/19 16:30 02/16/19 18:01 40 MG Pantoprazole Sodium (Protonix) 40 mg BIDAC 02/15/19 07:30 02/15/19 13:49 DC 02/15/19 08:43 40 MG Piperacillin Sod/ Tazobactam Sod 3.375 gm/Sodium Chloride 50 ml @ 100 mls/hr Q8HRS 02/14/19 22:00 02/17/19 05:59 100 MLS/HR Potassium Chloride/Water 100 ml @ 100 mls/hr Q1H 02/15/19 12:00 02/15/19 15:59 DC 02/15/19 14:53 100 MLS/HR Propofol 100 ml @ 1.061 mls/ hr CONT PRN 02/16/19 17:30 Cancel Sodium Chloride 500 ml @ 500 mls/hr 1X ONCE 02/14/19 21:15 02/14/19 22:14 DC 02/14/19 21:40 500 MLS/HR Vancomycin HCl 250 ml @ 250 mls/hr 1X ONCE 02/14/19 17:00 02/14/19 17:59 DC 02/14/19 17:36 250 MLS/HR Labs: Micro cult neg Objective: Assessment: 1. Lactic acidosis,multifactorial,resolved 2. Hypotension secondary to dehydration. 3. History of congestive heart failure. 4. History of renal insufficiency. 5. Large pleural effusion.s/p thoracocentesis 6. Coronary artery disease. 7. Malnutrition with albumin 1.4. 8. Elevated liver function tests. 9. Thrombocytopenia Plan: Plan of Care continue Zosyn GLEN Zyvox f/u c/s and labs in am D/W SOULEYMANE JAVED MD Feb 17, 2019 08:34
[2019-02-17] MEDS: ASPIRIN ENTERIC COATED 81 MG TABLET.DR. PO SCH (08:35)
[2019-02-17] MEDS: LACTOBACILLUS RHAMNOSUS GG 1 CAPSULE. PO SCH ×2 (08:35→22:00)
[2019-02-17] MEDS: CITALOPRAM 20 MG TABLET. PO SCH (08:36)
[2019-02-17] MEDS: PANTOPRAZOLE IV PUSH 40 MG VIAL. IVP SCH ×2 (08:36→16:47)
--- NOTE | 2019-02-17 09:00 | PDOC ---
CARDIOLOGY PROGRESS NOTE SUBJECTIVE: No acute events overnight. Denies any chest pain, dyspnea this morning Lying flat in bed w/o resp distress. OBJECTIVE: Vital Signs/I&O: Vital Signs Date Time Temp Pulse Resp B/P (MAP) Pulse Ox O2 Delivery O2 Flow Rate FiO2 02/17/19 07:00 97.6 74 20 95/60 (72) 98 Room Air 1.0 97.6 I & O 02/16/19 02/16/19 02/17/19 15:02 23:02 07:02 Intake Total 40 ml 50 ml 20 ml Output Total 113 ml 140 ml 71 ml Balance -73 ml -90 ml -51 ml Objective: a/o to self Normal heart tones. clear lungs soft abd no edema. CURRENT MEDICATIONS: ASA 81mg daily DIAGNOSTIC TESTING: Labs reviewed. No significant WBC, negative cultures. ASSESSMENT: 1. Respiratory failure- likely due to acute on chronic decompensated systolic and diastolic HF. 2. Septic shock - resolved, etiology unclear. Cannot rule out component of cardiac shock - mixed shock. PLAN: 1. Will check CVP again, bolus fluid as needed and monitor UOP. 2. Check SVO2. 3. Given lower BP's, hold off any further aggressive cardiovascular therapy. Supportive care for now. EMBER GRAY MD Feb 17, 2019 09:00
--- NOTE | 2019-02-17 10:36 | PDOC ---
PROGRESS NOTES Chief Complaint Chief Complaint sepsis, with hypotension, N/v, diarrhea and H/o dysphagia/esophageal dysmotility chronic systolic CHF pleural effusions, anasarca, from CAD acute renal failure severe malnutrition chronic anemia, coagulopathy, transaminitis, deaf S/p antrectomy w/ Kb-en-Y and J tube placement/removal History of Present Illness History of Present Illness still on levephed - will taper he is not eating, consider NG tube, family said he has refused, would refuse now, poor PO intake, will start PPN no event vitals better family here, plan discussed, consult GI, mult other consults following Vitals Vitals Vital Signs Date Time Temp Pulse Resp B/P (MAP) Pulse Ox O2 Delivery O2 Flow Rate FiO2 02/17/19 10:00 78 18 90/57 (68) 97 Room Air 1.0 02/17/19 08:00 97.6 97.6 Physical Exam Physical Exam GENERAL: Alert, oriented gentleman, not in any distress. HEENT: Both pupils are round and reacting. No conjunctival lesion, no lesion in the mouth. NECK: Supple, RT IJ looks ok LUNGS: Decreased breath sounds. HEART: S1, S2 regular. No gallop or murmur. ABDOMEN: Soft, nontender, no organomegaly. EXTREMITIES: edema + NEUROLOGIC: Other than poor hearing, the patient does move all the extremities. There is no other focal deficit. General: Alert, Cooperative, No acute distress, Other (cachectic) Heart: Regular rate (SR), Normal S1, Normal S2, No murmurs Lungs: Crackles, Other (dul at bases) Abdomen: Soft, No tenderness Extremities: No cyanosis, Other (anasarca) Skin: No breakdown, No significant lesion, Other (pale) Labs LABS Laboratory Tests Test 02/17/19 09:15 Mixed Venous Blood pH Mixed Venous Blood PCO2 mmHg Mixed Venous Blood PO2 < 42 mmHg Mixed Venous Blood HCO3 mmol/L Mixed Venous Blood Base Excess mmol/L Mixed Venous Blood O2 Saturation 73 % Review of Systems Review of Systems no n.v.d he says he feels Assessment and Plan Assessmemt and Plan Problems Medical Problems: (1) Anemia Status: Acute (2) CHF (congestive heart failure) Status: Acute (3) Diarrhea Status: Acute (4) Elevated liver function tests Status: Acute (5) Hypoalbuminemia Status: Acute (6) Hypocalcemia Status: Acute (7) Pleural effusion Status: Acute (8) Renal insufficiency Status: Acute (9) Severe sepsis Status: Acute (10) Tachycardia Status: Acute Comment Review of Relevant I have reviewed the following items sukhwinder (where applicable) has been applied. Labs Laboratory Tests Test 02/15/19 14:00 02/15/19 17:34 02/16/19 05:35 02/17/19 09:15 Body Fluid Source Pleural Body Fluid Color Yellow Body Fluid Clarity Clear Body Fluid Nucleated Cells 16 /cmm (Not Established) Body Fluid Mononuclear WBCs (%) 100 % Body Fluid Polymorphonuclear Cells 0 % Body Fluid Total RBCs Counted 4 /cmm (Not Established) Body Fluid Glucose 171 mg/dL (.) Body Fluid Total Protein 1.0 g/dL (.) Body Fluid Lactate Dehydrogenase 72 IU/L (.) Glucose (Fingerstick) 122 mg/dL (70-99) White Blood Count 4.9 x10^3/uL (4.0-11.0) Red Blood Count 3.05 x10^6/uL (4.30-5.70) Hemoglobin 9.4 g/dL (13.0-17.5) Hematocrit 27.7 % (39.0-53.0) Mean Corpuscular Volume 91 fL (79-100) Mean Corpuscular Hemoglobin 31 pg (25-35) Mean Corpuscular Hemoglobin Concent 34 g/dL (31-37) Red Cell Distribution Width 15.3 % (11.5-14.5) Platelet Count 114 x10^3/uL (140-400) Neutrophils (%) (Auto) 76 % (31-73) Lymphocytes (%) (Auto) 17 % (24-48) Monocytes (%) (Auto) 6 % (0-9) Eosinophils (%) (Auto) 0 % (0-3) Basophils (%) (Auto) 1 % (0-3) Neutrophils # (Auto) 3.7 x10^3/uL (1.8-7.7) Lymphocytes # (Auto) 0.8 x10^3/uL (1.0-4.8) Monocytes # (Auto) 0.3 x10^3/uL (0.0-1.1) Eosinophils # (Auto) 0.0 x10^3/uL (0.0-0.7) Basophils # (Auto) 0.0 x10^3/uL (0.0-0.2) Sodium Level 138 mmol/L (136-145) Potassium Level 3.6 mmol/L (3.5-5.1) Chloride Level 108 mmol/L (98-107) Carbon Dioxide Level 24 mmol/L (21-32) Anion Gap 6 (6-14) Blood Urea Nitrogen 18 mg/dL (8-26) Creatinine 1.8 mg/dL (0.7-1.3) Estimated GFR (Cockcroft-Gault) 35.9 BUN/Creatinine Ratio 10 (6-20) Glucose Level 120 mg/dL (70-99) Calcium Level 6.8 mg/dL (8.5-10.1) Total Bilirubin 1.0 mg/dL (0.2-1.0) Aspartate Amino Transf (AST/SGOT) 69 U/L (15-37) Alanine Aminotransferase (ALT/SGPT) 28 U/L (16-63) Alkaline Phosphatase 137 U/L (46-116) Total Protein 4.3 g/dL (6.4-8.2) Albumin 1.3 g/dL (3.4-5.0) Albumin/Globulin Ratio 0.4 (1.0-1.7) Mixed Venous Blood pH Mixed Venous Blood PCO2 mmHg Mixed Venous Blood PO2 < 42 mmHg Mixed Venous Blood HCO3 mmol/L Mixed Venous Blood Base Excess mmol/L Mixed Venous Blood O2 Saturation 73 % Laboratory Tests Test 02/17/19 09:15 Mixed Venous Blood pH Mixed Venous Blood PCO2 mmHg Mixed Venous Blood PO2 < 42 mmHg Mixed Venous Blood HCO3 mmol/L Mixed Venous Blood Base Excess mmol/L Mixed Venous Blood O2 Saturation 73 % Microbiology 02/14/19 Blood Culture - Preliminary, Resulted NO GROWTH AFTER 2 DAYS Medications Current Medications Sodium Chloride 1,000 ml @ 1,000 mls/hr Q1H IV Last administered on 02/14/19at 15:55; Start 02/14/19 at 15:34; Stop 02/14/19 at 16:33; Status DC Ondansetron HCl (Zofran) 4 mg 1X ONCE IV Last administered on 02/14/19at 16:09; Start 02/14/19 at 16:30; Stop 02/14/19 at 16:31; Status DC Sodium Chloride 1,000 ml @ 1,000 mls/hr 1X ONCE IV Last administered on 02/14/19at 17:27; Start 02/14/19 at 16:45; Stop 02/14/19 at 17:44; Status DC Piperacillin Sod/ Tazobactam Sod 3.375 gm/Sodium Chloride 50 ml @ 100 mls/hr 1X ONCE IV Last administered on 02/14/19at 17:27; Start 02/14/19 at 18:00; Stop 02/14/19 at 18:29; Status DC Vancomycin HCl 250 ml @ 250 mls/hr 1X ONCE IV Last administered on 02/14/19at 17:36; Start 02/14/19 at 17:00; Stop 02/14/19 at 17:59; Status DC Levofloxacin/ Dextrose 150 ml @ 100 mls/hr 1X ONCE IV Last administered on 02/14/19at 18:17; Start 02/14/19 at 16:45; Stop 02/14/19 at 18:14; Status DC Sodium Chloride 1,000 ml @ 150 mls/hr Q6H40M IV ; Start 02/14/19 at 17:05; Stop 02/14/19 at 21:10; Status DC Dopamine HCl/ Dextrose 250 ml @ 10.121 mls/ hr CONT PRN IV SEE I/O RECORD Last administered on 02/14/19at 20:32; Start 02/14/19 at 20:00 Piperacillin Sod/ Tazobactam Sod 3.375 gm/Sodium Chloride 50 ml @ 100 mls/hr Q8HRS IV Last administered on 02/17/19at 05:59; Start 02/14/19 at 22:00 Linezolid/Dextrose 300 ml @ 300 mls/hr Q12HR IV Last administered on 02/17/19at 08:36; Start 02/14/19 at 21:00; Stop 02/17/19 at 08:56; Status DC Enoxaparin Sodium (Lovenox 30mg Syringe) 30 mg Q24H SQ Last administered on 02/16/19at 21:18; Start 02/14/19 at 21:00 Sodium Chloride 1,000 ml @ 75 mls/hr [id number] IV Last administered on 02/17/19at 10:16; Start 02/15/19 at 18:00 Pantoprazole Sodium (Protonix) 40 mg BIDAC PO Last administered on 02/15/19 08:43; Start 02/15/19 at 07:30; Stop 02/15/19 at 13:49; Status DC Aspirin (Children'S Aspirin) 81 mg DAILYWBKFT PO Last administered on 02/15/19 08:43; Start 02/15/19 at 08:00; Stop 02/15/19 at 09:29; Status DC Citalopram Hydrobromide (CeleXA) 20 mg DAILY PO Last administered on 02/17/19 08:36; Start 02/15/19 at 09:00 Norepinephrine Bitartrate 250 ml @ 12.97 mls/ hr CONT PRN IV SEE I/O RECORD Last administered on 02/16/19at 23:40; Start 02/14/19 at 21:15 Sodium Chloride 500 ml @ 500 mls/hr 1X ONCE IV Last administered on 02/14/19a t 21:40; Start 02/14/19 at 21:15; Stop 02/14/19 at 22:14; Status DC Ondansetron HCl (Zofran) 4 mg PRN Q6HRS PRN IVP NAUSEA/VOMITING Last administered on 02/15/19at 15:42; Start 02/14/19 at 21:30 Albumin Human 100 ml @ 100 mls/hr 1X ONCE IV Last administered on 02/15/19at 10:37; Start 02/15/19 at 09:15; Stop 02/15/19 at 10:14; Status DC Furosemide (Lasix) 20 mg 1X ONCE IVP Last administered on 02/15/19at 11:42; Start 02/15/19 at 10:15; Stop 02/15/19 at 10:16; Status DC Aspirin (Ecotrin) 81 mg DAILYWBKFT PO Last administered on 02/17/19 08:35; Start 02/16/19 at 08:00 Potassium Chloride/Water 100 ml @ 100 mls/hr Q1H IV Last administered on 02/15/19at 14:53; Start 02/15/19 at 12:00; Stop 02/15/19 at 15:59; Status DC Lactobacillus Rhamnosus (Culturelle) 1 cap BID PO Last administered on 02/17/19at 08:35; Start 02/15/19 at 21:00 Pantoprazole Sodium (PROTONIX VIAL for IV PUSH) 40 mg BIDAC IVP Last administered on 02/17/19at 08:36; Start 02/15/19 at 16:30 Fentanyl Citrate 30 ml @ 0 mls/hr CONT PRN IV SEE PROTOCOL; Start 02/16/19 at 17:30; Status Cancel Fentanyl Citrate (Fentanyl 2ml Vial) 25 mcg PRN Q1HR PRN IV SEE COMMENTS; Start 02/16/19 at 17:30; Status Cancel Fentanyl Citrate (Fentanyl 2ml Vial) 50 mcg PRN Q1HR PRN IV SEE COMMENTS; Start 02/16/19 at 17:30; Status Cancel Chlorhexidine Gluconate (Peridex) 15 ml BID MM ; Start 02/16/19 at 21:00; Status Cancel Famotidine (Pepcid Vial) 20 mg QHS IVP ; Start 02/16/19 at 21:00; Status Cancel Morphine Sulfate (Morphine Sulfate) 2 mg PRN Q1HR PRN IV SEE COMMENTS.; Start 02/16/19 at 17:30; Status Cancel Morphine Sulfate (Morphine Sulfate) 4 mg PRN Q1HR PRN IV SEE COMMENTS.; Start 02/16/19 at 17:30; Status Cancel Enoxaparin Sodium (Lovenox 40mg Syringe) 40 mg Q12HR SQ ; Start 02/16/19 at 21:00; Status UNV Midazolam HCl 100 ml @ 5 mls/hr CONT PRN IV SEE I/O RECORD; Start 02/16/19 at 17:30; Status Cancel Propofol 100 ml @ 1.061 mls/ hr CONT PRN IV SEE I/O RECORD; Start 02/16/19 at 17:30; Status Cancel Active Scripts Active Aspirin Ec (Aspirin) 81 Mg Tablet. 81 Mg PO DAILYWBKFT 30 Days Reported Protonix (Pantoprazole Sodium) 20 Mg Tablet. 40 Mg PO BID Escitalopram Oxalate 10 Mg Tablet 10 Mg PO DAILY Vitals/I & O Vital Sign - Last 24 Hours 02/16/19 02/16/19 02/16/19 02/16/19 11:00 12:00 12:00 13:00 Temp 97.5 97.4 97.4 97.5 97.4 97.4 Pulse 72 73 73 Resp 18 18 B/P (MAP) 97/60 (72) 92/62 (72) 92/58 (69) Pulse Ox 99 99 100 O2 Delivery Nasal Cannula Nasal Cannula Nasal Cannula Nasal Cannula O2 Flow Rate 2.0 1.0 1.0 1.0 02/16/19 02/16/19 02/16/19 02/16/19 14:00 15:00 16:00 16:00 Temp 97.4 97.4 97.4 97.4 97.4 97.4 Pulse 72 74 68 Resp 16 18 B/P (MAP) 80/60 (67) 91/56 (68) 93/52 (66) Pulse Ox 100 100 100 O2 Delivery Nasal Cannula Nasal Cannula Nasal Cannula Nasal Cannula O2 Flow Rate 1.0 1.0 1.0 1.0 02/16/19 02/16/19 02/16/19 02/16/19 17:00 18:00 19:00 20:00 Temp 97.4 97.4 97.9 97.4 97.4 97.9 Pulse 66 66 74 78 Resp 18 18 20 B/P (MAP) 81/46 (58) 84/51 (62) 77/45 (56) 92/57 (69) Pulse Ox 100 100 98 98 O2 Delivery Nasal Cannula Nasal Cannula Nasal Cannula Nasal Cannula O2 Flow Rate 1.0 1.0 1.0 1.0 02/16/19 02/16/19 02/16/19 02/16/19 20:01 21:00 22:00 23:00 Pulse 76 80 80 B/P (MAP) 97/54 (68) 90/48 (62) 87/50 (62) Pulse Ox 99 99 99 O2 Delivery Nasal Cannula Nasal Cannula Nasal Cannula Nasal Cannula O2 Flow Rate 1.0 1.0 1.0 1.0 02/17/19 02/17/19 02/17/19 02/17/19 00:01 00:01 01:00 02:00 Temp 98.3 98.3 Pulse 80 76 76 B/P (MAP) 87/53 (64) 93/49 (64) 83/58 (66) Pulse Ox 99 99 97 O2 Delivery Nasal Cannula Nasal Cannula Nasal Cannula Nasal Cannula O2 Flow Rate 1.0 1.0 1.0 1.0 02/17/19 02/17/19 02/17/19 02/17/19 03:00 04:00 04:00 05:00 Temp 98.1 98.1 Pulse 74 74 78 B/P (MAP) 96/45 (62) 95/53 (67) 98/52 (67) Pulse Ox 98 97 98 O2 Delivery Room Air Room Air Room Air Room Air 02/17/19 02/17/19 02/17/19 02/17/19 06:00 07:00 08:00 08:00 Temp 97.6 97.6 97.6 97.6 Pulse 76 74 76 Resp 20 18 B/P (MAP) 95/50 (65) 95/60 (72) 94/55 (68) Pulse Ox 98 98 97 O2 Delivery Room Air Room Air Room Air Room Air O2 Flow Rate 1.0 1.0 1.0 02/17/19 02/17/19 09:00 10:00 Pulse 78 78 Resp 20 18 B/P (MAP) 85/45 (58) 90/57 (68) Pulse Ox 97 97 O2 Delivery Room Air Room Air O2 Flow Rate 1.0 1.0 Intake and Output 02/16/19 02/16/19 02/17/19 15:00 23:00 07:00 Intake Total 40 ml 50 ml 20 ml Output Total 113 ml 140 ml 71 ml Balance -73 ml -90 ml -51 ml Nutrition Consultation Dietary Evaluation: Recommendations by RD: Increase Calorie Intake, PPN/TPN Comments: REC TPN per followin g dextrose, 60 g AA, 20 g lipids REC advance diet as able pending SCRUB TECHNICIAN recommendations, goal diet ADA w/textures and liquids per SCRUB TECHNICIAN Expected Outcomes/Goals: Nutrition support + PO intake to meet >75% est needs Malnutrition Findings: Body Fat Depletion (Non Severe: Mild Depletion Weight Status: Appropriate JENNIFER CORTÉS MD Feb 17, 2019 10:36
[2019-02-17] MEDS: AMINO AC 3%/ELECTROLYTE/GLYCER 1,000 ML IV SCH ×2 (11:08→21:00)
--- NOTE | 2019-02-17 11:38 | PDOC ---
SUBJECTIVE ROS Refusing to eat, Refused NG tube, On TPN OBJECTIVE Vital Signs Vital Signs Date Time Temp Pulse Resp B/P (MAP) Pulse Ox O2 Delivery O2 Flow Rate FiO2 02/17/19 11:00 97.4 76 20 96/50 (65) 97 Room Air 1.0 97.4 I & 0 Intake and Output 02/17/19 06:59 Intake Total 90 ml Output Total 449 ml Balance -359 ml Intake Oral 90 ml Output Urine Total 449 ml PHYSICAL EXAM Physical Exam General: No acute distress,cachectic HEENT: OM dry , On O2 by NC Neck supple Lungs: CTA , decreased BS bases Heart: Regular rate , Normal S1, Normal S2, No murmurs Abdomen: Soft, No tenderness Extremities: 2-3 + EDEMA ( 2/2 severe hypoalbuminemia) Skin: No rash Neuro: grossly normal - Perrin + DIAGNOSIS/ASSESSMENT Assessment & Plan ADAM - Pre-renal 2/2 diarrhea, Poor PO intake Renal function improved - probably at his baseline , No labs this am , UOP declined CT - Cyst vs Hydronephrosis Rt kidney per Radiologist UA unremarkable except for hyaline casts Supportive care, IVF , Monitor, Avoid Nephrotoxins Hypokalemia- Replace as needed Hypocalcemia- Corrected for Glucose was normal CKD stage 3 -Baseline Renal function per [facility] records 1.4-1.7, Pleural Effusion- Rt large S/P Thoracentesis 1.5 LTS 02/15 Anasarca - 2/2 Severe protein malnutrition / Severe HypoAlbuminemia On TPN now 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 Weakness/anorexia/cachexia Chronic anemia DM2 Hx of antrectomy w/ Kb-en-Y and PUD Discussed with RN COMMENT/RELEVANT DATA Meds Current Medications Medications (Trade) Dose Ordered Sig/Enrrique Start Time Stop Time Status Last Admin Dose Admin Albumin Human 100 ml @ 100 mls/hr 1X ONCE 02/15/19 09:15 02/15/19 10:14 DC 02/15/19 10:37 100 MLS/HR Amino Acids/ Glycerin/ Electrolytes 1,000 ml @ 100 mls/hr Q10H 02/17/19 11:00 02/18/19 22:00 02/17/19 11:08 100 MLS/HR Aspirin (Children'S Aspirin) 81 mg DAILYWBKFT 02/15/19 08:00 02/15/19 09:29 DC 02/15/19 08:43 81 MG Aspirin (Ecotrin) 81 mg DAILYWBKFT 02/16/19 08:00 02/17/19 08:35 81 MG Chlorhexidine Gluconate (Peridex) 15 ml BID 02/16/19 21:00 Cancel Citalopram Hydrobromide (CeleXA) 20 mg DAILY 02/15/19 09:00 02/17/19 08:36 20 MG Dopamine HCl/ Dextrose 250 ml @ 10.121 mls/ hr CONT PRN 02/14/19 20:00 02/14/19 20:32 13 MLS/HR Enoxaparin Sodium (Lovenox 30mg Syringe) 30 mg Q24H 02/14/19 21:00 02/16/19 21:18 30 MG Enoxaparin Sodium (Lovenox 40mg Syringe) 40 mg Q12HR 02/16/19 21:00 UNV Famotidine (Pepcid Vial) 20 mg QHS 02/16/19 21:00 Cancel Fentanyl Citrate (Fentanyl 2ml Vial) 50 mcg PRN Q1HR PRN 02/16/19 17:30 Cancel Furosemide (Lasix) 20 mg 1X ONCE 02/15/19 10:15 02/15/19 10:16 DC 02/15/19 11:42 20 MG Info (Tpn Per Pharmacy) 1 each PRN DAILY PRN 02/17/19 10:45 Lactobacillus Rhamnosus (Culturelle) 1 cap BID 02/15/19 21:00 02/17/19 08:35 1 CAP Levofloxacin/ Dextrose 150 ml @ 100 mls/hr 1X ONCE 02/14/19 16:45 02/14/19 18:14 DC 02/14/19 18:17 100 MLS/HR Linezolid/Dextrose 300 ml @ 300 mls/hr Q12HR 02/14/19 21:00 02/17/19 08:56 DC 02/17/19 08:36 300 MLS/HR Midazolam HCl 100 ml @ 5 mls/hr CONT PRN 02/16/19 17:30 Cancel Morphine Sulfate (Morphine Sulfate) 4 mg PRN Q1HR PRN 02/16/19 17:30 Cancel Norepinephrine Bitartrate 250 ml @ 12.97 mls/ hr CONT PRN 02/14/19 21:15 02/16/19 23:40 12.97 MLS/HR Ondansetron HCl (Zofran) 4 mg PRN Q6HRS PRN 02/14/19 21:30 02/15/19 15:42 4 MG Pantoprazole Sodium (PROTONIX VIAL for IV PUSH) 40 mg BIDAC 02/15/19 16:30 02/17/19 08:36 40 MG Pantoprazole Sodium (Protonix) 40 mg BIDAC 02/15/19 07:30 02/15/19 13:49 DC 02/15/19 08:43 40 MG Piperacillin Sod/ Tazobactam Sod 3.375 gm/Sodium Chloride 50 ml @ 100 mls/hr Q8HRS 02/14/19 22:00 02/17/19 05:59 100 MLS/HR Potassium Chloride/Water 100 ml @ 100 mls/hr Q1H 02/15/19 12:00 02/15/19 15:59 DC 02/15/19 14:53 100 MLS/HR Propofol 100 ml @ 1.061 mls/ hr CONT PRN 02/16/19 17:30 Cancel Sodium Chloride 500 ml @ 500 mls/hr 1X ONCE 02/14/19 21:15 02/14/19 22:14 DC 02/14/19 21:40 500 MLS/HR Vancomycin HCl 250 ml @ 250 mls/hr 1X ONCE 02/14/19 17:00 02/14/19 17:59 DC 02/14/19 17:36 250 MLS/HR Lab Laboratory Tests Test 02/17/19 09:15 Mixed Venous Blood pH Mixed Venous Blood PCO2 mmHg Mixed Venous Blood PO2 < 42 mmHg Mixed Venous Blood HCO3 mmol/L Mixed Venous Blood Base Excess mmol/L Mixed Venous Blood O2 Saturation 73 % Results All relevant outside records, renal labs, imaging studies, telemetry/EKG's were reviewed. DARA ROGERS MD Feb 17, 2019 11:38
--- NOTE | 2019-02-17 11:44 | PDOC ---
PROGRESS NOTES Subjective Subjective pt sleeping, present Objective Objective Vital Signs Date Time Temp Pulse Resp B/P (MAP) Pulse Ox O2 Delivery O2 Flow Rate FiO2 02/17/19 11:00 97.4 76 20 96/50 (65) 97 Room Air 1.0 97.4 Intake and Output 02/17/19 07:00 Intake Total 110 ml Output Total 324 ml Balance -214 ml Intake Oral 110 ml Output Urine Total 324 ml Physical Exam Abdomen: Soft, No tenderness Assessment Assessment Problems Medical Problems: (1) Anemia Status: Acute (2) CHF (congestive heart failure) Status: Acute (3) Diarrhea Status: Acute (4) Elevated liver function tests Status: Acute (5) Hypoalbuminemia Status: Acute (6) Hypocalcemia Status: Acute (7) Pleural effusion Status: Acute (8) Renal insufficiency Status: Acute (9) Severe sepsis Status: Acute (10) Tachycardia Status: Acute Plan Plan of Care Supportive care, no surgical recs Comment Review of Relevant I have reviewed the following items sukhwinder (where applicable) has been applied. Labs Laboratory Tests Test 02/15/19 14:00 02/15/19 17:34 02/16/19 05:35 02/17/19 09:15 Body Fluid Source Pleural Body Fluid Color Yellow Body Fluid Clarity Clear Body Fluid Nucleated Cells 16 /cmm (Not Established) Body Fluid Mononuclear WBCs (%) 100 % Body Fluid Polymorphonuclear Cells 0 % Body Fluid Total RBCs Counted 4 /cmm (Not Established) Body Fluid Glucose 171 mg/dL (.) Body Fluid Total Protein 1.0 g/dL (.) Body Fluid Lactate Dehydrogenase 72 IU/L (.) Glucose (Fingerstick) 122 mg/dL (70-99) White Blood Count 4.9 x10^3/uL (4.0-11.0) Red Blood Count 3.05 x10^6/uL (4.30-5.70) Hemoglobin 9.4 g/dL (13.0-17.5) Hematocrit 27.7 % (39.0-53.0) Mean Corpuscular Volume 91 fL (79-100) Mean Corpuscular Hemoglobin 31 pg (25-35) Mean Corpuscular Hemoglobin Concent 34 g/dL (31-37) Red Cell Distribution Width 15.3 % (11.5-14.5) Platelet Count 114 x10^3/uL (140-400) Neutrophils (%) (Auto) 76 % (31-73) Lymphocytes (%) (Auto) 17 % (24-48) Monocytes (%) (Auto) 6 % (0-9) Eosinophils (%) (Auto) 0 % (0-3) Basophils (%) (Auto) 1 % (0-3) Neutrophils # (Auto) 3.7 x10^3/uL (1.8-7.7) Lymphocytes # (Auto) 0.8 x10^3/uL (1.0-4.8) Monocytes # (Auto) 0.3 x10^3/uL (0.0-1.1) Eosinophils # (Auto) 0.0 x10^3/uL (0.0-0.7) Basophils # (Auto) 0.0 x10^3/uL (0.0-0.2) Sodium Level 138 mmol/L (136-145) Potassium Level 3.6 mmol/L (3.5-5.1) Chloride Level 108 mmol/L (98-107) Carbon Dioxide Level 24 mmol/L (21-32) Anion Gap 6 (6-14) Blood Urea Nitrogen 18 mg/dL (8-26) Creatinine 1.8 mg/dL (0.7-1.3) Estimated GFR (Cockcroft-Gault) 35.9 BUN/Creatinine Ratio 10 (6-20) Glucose Level 120 mg/dL (70-99) Calcium Level 6.8 mg/dL (8.5-10.1) Total Bilirubin 1.0 mg/dL (0.2-1.0) Aspartate Amino Transf (AST/SGOT) 69 U/L (15-37) Alanine Aminotransferase (ALT/SGPT) 28 U/L (16-63) Alkaline Phosphatase 137 U/L (46-116) Total Protein 4.3 g/dL (6.4-8.2) Albumin 1.3 g/dL (3.4-5.0) Albumin/Globulin Ratio 0.4 (1.0-1.7) Mixed Venous Blood pH Mixed Venous Blood PCO2 mmHg Mixed Venous Blood PO2 < 42 mmHg Mixed Venous Blood HCO3 mmol/L Mixed Venous Blood Base Excess mmol/L Mixed Venous Blood O2 Saturation 73 % Laboratory Tests Test 02/17/19 09:15 Mixed Venous Blood pH Mixed Venous Blood PCO2 mmHg Mixed Venous Blood PO2 < 42 mmHg Mixed Venous Blood HCO3 mmol/L Mixed Venous Blood Base Excess mmol/L Mixed Venous Blood O2 Saturation 73 % Microbiology 02/14/19 Blood Culture - Preliminary, Resulted NO GROWTH AFTER 2 DAYS Medications Current Medications Sodium Chloride 1,000 ml @ 1,000 mls/hr Q1H IV Last administered on 02/14/19at 15:55; Start 02/14/19 at 15:34; Stop 02/14/19 at 16:33; Status DC Ondansetron HCl (Zofran) 4 mg 1X ONCE IV Last administered on 02/14/19at 16:09; Start 02/14/19 at 16:30; Stop 02/14/19 at 16:31; Status DC Sodium Chloride 1,000 ml @ 1,000 mls/hr 1X ONCE IV Last administered on 02/14/19at 17:27; Start 02/14/19 at 16:45; Stop 02/14/19 at 17:44; Status DC Piperacillin Sod/ Tazobactam Sod 3.375 gm/Sodium Chloride 50 ml @ 100 mls/hr 1X ONCE IV Last administered on 02/14/19at 17:27; Start 02/14/19 at 18:00; Stop 02/14/19 at 18:29; Status DC Vancomycin HCl 250 ml @ 250 mls/hr 1X ONCE IV Last administered on 02/14/19at 17:36; Start 02/14/19 at 17:00; Stop 02/14/19 at 17:59; Status DC Levofloxacin/ Dextrose 150 ml @ 100 mls/hr 1X ONCE IV Last administered on 02/14/19at 18:17; Start 02/14/19 at 16:45; Stop 02/14/19 at 18:14; Status DC Sodium Chloride 1,000 ml @ 150 mls/hr Q6H40M IV ; Start 02/14/19 at 17:05; Stop 02/14/19 at 21:10; Status DC Dopamine HCl/ Dextrose 250 ml @ 10.121 mls/ hr CONT PRN IV SEE I/O RECORD Last administered on 02/14/19at 20:32; Start 02/14/19 at 20:00 Piperacillin Sod/ Tazobactam Sod 3.375 gm/Sodium Chloride 50 ml @ 100 mls/hr Q8HRS IV Last administered on 02/17/19at 05:59; Start 02/14/19 at 22:00 Linezolid/Dextrose 300 ml @ 300 mls/hr Q12HR IV Last administered on 02/17/19 08:36; Start 02/14/19 at 21:00; Stop 02/17/19 at 08:56; Status DC Enoxaparin Sodium (Lovenox 30mg Syringe) 30 mg Q24H SQ Last administered on 02/16/19 21:18; Start 02/14/19 at 21:00 Sodium Chloride 1,000 ml @ 75 mls/hr [id number] IV Last administered on at 10:16; Start 02/15/19 at 18:00 Pantoprazole Sodium (Protonix) 40 mg BIDAC PO Last administered on 02/15/19 08:43; Start 02/15/19 at 07:30; Stop 02/15/19 at 13:49; Status DC Aspirin (Children'S Aspirin) 81 mg DAILYWBKFT PO Last administered on 02/15/19 08:43; Start 02/15/19 at 08:00; Stop 02/15/19 at 09:29; Status DC Citalopram Hydrobromide (CeleXA) 20 mg DAILY PO Last administered on 02/17/19 08:36; Start 02/15/19 at 09:00 Norepinephrine Bitartrate 250 ml @ 12.97 mls/ hr CONT PRN IV SEE I/O RECORD Last administered on 02/16/19at 23:40; Start 02/14/19 at 21:15 Sodium Chloride 500 ml @ 500 mls/hr 1X ONCE IV Last administered on 02/14/19at 21:40; Start 02/14/19 at 21:15; Stop 02/14/19 at 22:14; Status DC Ondansetron HCl (Zofran) 4 mg PRN Q6HRS PRN IVP NAUSEA/VOMITING Last administered on 02/15/19at 15:42; Start 02/14/19 at 21:30 Albumin Human 100 ml @ 100 mls/hr 1X ONCE IV Last administered on 02/15/19at 10:37; Start 02/15/19 at 09:15; Stop 02/15/19 at 10:14; Status DC Furosemide (Lasix) 20 mg 1X ONCE IVP Last administered on 10/18/19at 11:42; Start 02/15/19 at 10:15; Stop 02/15/19 at 10:16; Status DC Aspirin (Ecotrin) 81 mg DAILYWBKFT PO Last administered on 02/17/19at 08:35; Start 02/16/19 at 08:00 Potassium Chloride/Water 100 ml @ 100 mls/hr Q1H IV Last administered on 02/15/19at 14:53; Start 02/15/19 at 12:00; Stop 02/15/19 at 15:59; Status DC Lactobacillus Rhamnosus (Culturelle) 1 cap BID PO Last administered on 02/17/19at 08:35; Start 02/15/19 at 21:00 Pantoprazole Sodium (PROTONIX VIAL for IV PUSH) 40 mg BIDAC IVP Last administered on 02/17/19at 08:36; Start 02/15/19 at 16:30 Fentanyl Citrate 30 ml @ 0 mls/hr CONT PRN IV SEE PROTOCOL; Start 02/16/19 at 17:30; Status Cancel Fentanyl Citrate (Fentanyl 2ml Vial) 25 mcg PRN Q1HR PRN IV SEE COMMENTS; Start 02/16/19 at 17:30; Status Cancel Fentanyl Citrate (Fentanyl 2ml Vial) 50 mcg PRN Q1HR PRN IV SEE COMMENTS; Start 02/16/19 at 17:30; Status Cancel Chlorhexidine Gluconate (Peridex) 15 ml BID MM ; Start 02/16/19 at 21:00; Status Cancel Famotidine (Pepcid Vial) 20 mg QHS IVP ; Start 02/16/19 at 21:00; Status Cancel Morphine Sulfate (Morphine Sulfate) 2 mg PRN Q1HR PRN IV SEE COMMENTS.; Start 02/16/19 at 17:30; Status Cancel Morphine Sulfate (Morphine Sulfate) 4 mg PRN Q1HR PRN IV SEE COMMENTS.; Start 02/16/19 at 17:30; Status Cancel Enoxaparin Sodium (Lovenox 40mg Syringe) 40 mg Q12HR SQ ; Start 02/16/19 at 21:00; Status UNV Midazolam HCl 100 ml @ 5 mls/hr CONT PRN IV SEE I/O RECORD; Start 02/16/19 at 17:30; Status Cancel Propofol 100 ml @ 1.061 mls/ hr CONT PRN IV SEE I/O RECORD; Start 02/16/19 at 17:30; Status Cancel Info (Tpn Per Pharmacy) 1 each PRN DAILY PRN MC SEE COMMENTS; Start 02/17/19 at 10:45 Amino Acids/ Glycerin/ Electrolytes 1,000 ml @ 100 mls/hr Q10H IV Last administered on 02/17/19at 11:08; Start 02/17/19 at 11:00; Stop 02/18/19 at 22:00 Active Scripts Active Aspirin Ec (Aspirin) 81 Mg Tablet. 81 Mg PO DAILYWBKFT 30 Days Reported Protonix (Pantoprazole Sodium) 20 Mg Tablet. 40 Mg PO BID Escitalopram Oxalate 10 Mg Tablet 10 Mg PO DAILY Vitals/I & O Vital Sign - Last 24 Hours 02/16/19 02/16/19 02/16/19 02/16/19 12:00 12:00 13:00 14:00 Temp 97.4 97.4 97.4 97.4 97.4 97.4 Pulse 73 73 72 Resp 18 16 B/P (MAP) 92/62 (72) 92/58 (69) 80/60 (67) Pulse Ox 99 100 100 O2 Delivery Nasal Cannula Nasal Cannula Nasal Cannula Nasal Cannula O2 Flow Rate 1.0 1.0 1.0 1.0 02/16/19 02/16/19 02/16/19 02/16/19 15:00 16:00 16:00 17:00 Temp 97.4 97.4 97.4 97.4 97.4 97.4 Pulse 74 68 66 Resp 18 18 B/P (MAP) 91/56 (68) 93/52 (66) 81/46 (58) Pulse Ox 100 100 100 O2 Delivery Nasal Cannula Nasal Cannula Nasal Cannula Nasal Cannula O2 Flow Rate 1.0 1.0 1.0 1.0 02/16/19 02/16/19 02/16/19 02/16/19 18:00 19:00 20:00 20:01 Temp 97.4 97.9 97.4 97.9 Pulse 66 74 78 Resp 18 20 B/P (MAP) 84/51 (62) 77/45 (56) 92/57 (69) Pulse Ox 100 98 98 O2 Delivery Nasal Cannula Nasal Cannula Nasal Cannula Nasal Cannula O2 Flow Rate 1.0 1.0 1.0 1.0 02/16/19 02/16/19 02/16/19 02/17/19 21:00 22:00 23:00 00:01 Pulse 76 80 80 B/P (MAP) 97/54 (68) 90/48 (62) 87/50 (62) Pulse Ox 99 99 99 O2 Delivery Nasal Cannula Nasal Cannula Nasal Cannula Nasal Cannula O2 Flow Rate 1.0 1.0 1.0 1.0 02/17/19 02/17/19 02/17/19 02/17/19 00:01 01:00 02:00 03:00 Temp 98.3 98.3 Pulse 80 76 76 74 B/P (MAP) 87/53 (64) 93/49 (64) 83/58 (66) 96/45 (62) Pulse Ox 99 99 97 98 O2 Delivery Nasal Cannula Nasal Cannula Nasal Cannula Room Air O2 Flow Rate 1.0 1.0 1.0 02/17/19 02/17/19 02/17/19 02/17/19 04:00 04:00 05:00 06:00 Temp 98.1 98.1 Pulse 74 78 76 B/P (MAP) 95/53 (67) 98/52 (67) 95/50 (65) Pulse Ox 97 98 98 O2 Delivery Room Air Room Air Room Air Room Air 02/17/19 02/17/19 02/17/19 02/17/19 07:00 08:00 08:00 09:00 Temp 97.6 97.6 97.6 97.6 Pulse 74 76 78 Resp 20 18 20 B/P (MAP) 95/60 (72) 94/55 (68) 85/45 (58) Pulse Ox 98 97 97 O2 Delivery Room Air Room Air Room Air Room Air O2 Flow Rate 1.0 1.0 1.0 1.0 02/17/19 02/17/19 10:00 11:00 Temp 97.4 97.4 Pulse 78 76 Resp 18 20 B/P (MAP) 90/57 (68) 96/50 (65) Pulse Ox 97 97 O2 Delivery Room Air Room Air O2 Flow Rate 1.0 1.0 Intake and Output 02/16/19 02/16/19 02/17/19 15:00 23:00 07:00 Intake Total 40 ml 50 ml 20 ml Output Total 113 ml 140 ml 71 ml Balance -73 ml -90 ml -51 ml Nutrition Consultation Dietary Evaluation: Recommendations by RD: Increase Calorie Intake, PPN/TPN Comments: REC TPN per followin g dextrose, 60 g AA, 20 g lipids REC advance diet as able pending PERSONALIZED LIVING ASSISTANT recommendations, goal diet ADA w/textures and liquids per PERSONALIZED LIVING ASSISTANT Expected Outcomes/Goals: Nutrition support + PO intake to meet >75% est needs Malnutrition Findings: Body Fat Depletion (Non Severe: Mild Depletion Weight Status: Appropriate ARGENIS HUGO MD Feb 17, 2019 11:44
[2019-02-17 12:19] LABS: MAGNESIUM 1.5 mg/dL (1.8-2.4); PHOSPHORUS 2.2 mg/dL (2.6-4.7)
[2019-02-17] MEDS: TPN PER PHARMACY MC PRN (13:29)
--- NOTE | 2019-02-17 13:29 | NUR ---
Pharmacy TPN Dosing Note S: CLAUDIO IBANEZ is a 88 year old M Currently receiving Central Continuous TPN started 02/17/19 B:Pertinent PMH: NPO/MALNOURISHED Height: 5 feet, 6 inches Weight: 70.077423 kg Current diet: NPO LABS: Sodium: 138 Potassium: 3.6 Chloride: 108 Calcium: 6.8 Corrected Calcium: 8.96 Magnesium: 1.5 CO2: 24 SCr: 1.8 Glucose: 120 Albumin: 1.3 AST: 69 ALT: 28 TPN FORMULA: TPN TYPE: Central Continuous AMINO ACIDS: 60 gm DEXTROSE: 195 gm LIPIDS: 20 gm SODIUM CHLORIDE: 90 mEq SODIUM ACETATE: mEq SODIUM PHOSPHATE: mmol POTASSIUM CHLORIDE: mEq POTASSIUM ACETATE: 50 mEq POTASSIUM PHOSPHATE: 20 mmol MAGNESIUM: 15 mEq CALCIUM: 10 mEq INSULIN: units MULTIPLE VITAMIN: 10 ml TRACE ELEMENTS: 1 ml(s) TPN PLAN: -Starting TPN, pt not eating, family does not want NG, severe malnutrition -Will start house formula with the following exceptions -Cl high, will utilize KAce in place of KCl -Mag low: 2gm bolus and start w/ 15meq in TPN -Phos low: KPhos 13.6mmol x2 this afternoon, and start w/ 20mmol in TPN -Labs in the am R: Begin TPN as written above. Will monitor electrolytes, glucose, and tolerance to TPN. KATHY SILVESTRE [facility], 02/17/19 [id number]
[2019-02-17] MEDS: POTASSIUM PHOSPHATE DIBASIC 13.6 MMOL in IV DEXTROSE 5% 100ML 100 ML IV SCH ×2 (13:42→15:49)
[2019-02-17] MEDS ORDERED: MAGNESIUM SULFATE 2GM 50 ML IV ONE (14:00)
[2019-02-17] MEDS ORDERED: ALBUMIN HUMAN 5% 250 ML IV ONE (14:30)
--- NOTE | 2019-02-17 14:58 | PDOC ---
Subjective: Subjective: Hgb not checked today. On PPN Objective: Vital Signs: Vital Signs Date Time Temp Pulse Resp B/P (MAP) Pulse Ox O2 Delivery O2 Flow Rate FiO2 02/17/19 13:00 88 20 79/47 (58) 96 Room Air 1.0 02/17/19 11:00 97.4 97.4 Labs: Laboratory Tests Test 02/16/19 19:00 02/17/19 09:15 02/17/19 11:45 Clostridium difficile Toxin B Gene Negative (Negative) Mixed Venous Blood pH Mixed Venous Blood PCO2 mmHg Mixed Venous Blood PO2 < 42 mmHg Mixed Venous Blood HCO3 mmol/L Mixed Venous Blood Base Excess mmol/L Mixed Venous Blood O2 Saturation 73 % Phosphorus Level 2.2 mg/dL (2.6-4.7) Magnesium Level 1.5 mg/dL (1.8-2.4) Physical Exam: Physical Exam: GEN: NAD HEENT: OP clear CV: S1S2 without murmurs, rubs, or gallops RESP: CTAB without wheezing, rhonchi, or crackles ABD: NABS, SNT/ND EXT: No edema NEURO: AAO x 3 Assessment & Plan: Assessment : A N/v, diarrhea Hypotension, pleural effusions, anasarca Lactic acidosis, ADAM, hypoalbuminemia, chronic anemia, coagulopathy, abnormal LFTs H/o dysphagia/esophageal dysmotility H/o anastomotic ulcers S/p antrectomy w/ Kb-en-Y and J tube placement/removal S/p cholecystectomy Anemia - iron studies c/w ACD in 2018 Cardiomyopathy, CAD, DM [place] Plan: 1) Diet per speech- consider esophagram when able 2) Anemia parameters suggest chronic disease. Check CBC tomorrow 3) Follow stool studies JATINDER ALMANZAR MD Feb 17, 2019 14:58
[2019-02-17] MEDS ORDERED: DEXTROSE 70% IV SCH ×10 (22:00)
[2019-02-17] MEDS ORDERED: AMINO ACID IV SCH ×10 (22:00)
[2019-02-17] MEDS ORDERED: [UNRECOGNIZED DRUG - OTHER] IV SCH ×10 (22:00)
[2019-02-17] MEDS ORDERED: TOTAL PARENTERAL NUTRITION IV SCH ×10 (22:00)
[2019-02-17] MEDS: ENOXAPARIN 30 MG/0.3 ML SYRINGE. SQ SCH (22:01)
[2019-02-18] VITALS (20 sets, daily range): BP systolic 84–114; BP diastolic 49–68
[2019-02-18] MEDS: PIPERACILLIN/TAZOBACTAM 3.375 GM in IV NORMAL SALINE 50ML 50 ML IV SCH (05:18)
[2019-02-18 05:57] LABS: HEMATOCRIT 25.4 % (39.0-53.0); HEMOGLOBIN 8.3 g/dL (13.0-17.5); RED BLOOD COUNT 2.74 x10^6/uL (4.30-5.70); RED CELL DISTRIBUTION WIDTH 15.4 % (11.5-14.5); WHITE BLOOD COUNT 2.7 x10^3/uL (4.0-11.0)
[2019-02-18 06:20] LABS: CALCIUM 6.6 mg/dL (8.5-10.1); CREATININE 1.6 mg/dL (0.7-1.3); GFR 41.1; PHOSPHORUS 3.1 mg/dL (2.6-4.7); POTASSIUM 3.4 mmol/L (3.5-5.1)
[2019-02-18] MEDS: AMINO AC 3%/ELECTROLYTE/GLYCER 1,000 ML IV SCH (07:00)
--- NOTE | 2019-02-18 08:16 | PDOC ---
Infectious Disease Note Subjective: Subjective pt is doing ok no f/c/n/v occ loose bm d/w rn still on pressors ROS: ROS Negative otherwise. Vital Signs: Vital Signs Vital Signs Date Time Temp Pulse Resp B/P (MAP) Pulse Ox O2 Delivery O2 Flow Rate FiO2 02/18/19 07:00 97.7 62 12 106/62 (77) 96 Room Air 97.7 02/18/19 06:02 1.0 Physical Exam: PHYSICAL EXAM GENERAL: Alert, oriented gentleman, not in any distress. HEENT: Both pupils are round and reacting. No conjunctival lesion, no lesion in the mouth. NECK: Supple, RT IJ looks ok LUNGS: Decreased breath sounds. HEART: S1, S2 regular. No gallop or murmur. ABDOMEN: Soft, nontender, no organomegaly. EXTREMITIES: edema + NEUROLOGIC: Other than poor hearing, the patient does move all the extremities. There is no other focal deficit. Medications: Inpatient Meds: Current Medications Medications (Trade) Dose Ordered Sig/Enrrique Start Time Stop Time Status Last Admin Dose Admin Albumin Human 250 ml @ 62.5 mls/hr 1X ONCE 02/17/19 14:30 02/17/19 18:29 DC 02/17/19 14:30 62.5 MLS/HR Amino Acids/ Glycerin/ Electrolytes 1,000 ml @ 100 mls/hr Q10H 02/17/19 11:00 02/18/19 22:00 02/17/19 11:08 100 MLS/HR Aspirin (Children'S Aspirin) 81 mg DAILYWBKFT 02/15/19 08:00 02/15/19 09:29 DC 02/15/19 08:43 81 MG Aspirin (Ecotrin) 81 mg DAILYWBKFT 02/16/19 08:00 02/17/19 08:35 81 MG Chlorhexidine Gluconate (Peridex) 15 ml BID 02/16/19 21:00 Cancel Citalopram Hydrobromide (CeleXA) 20 mg DAILY 02/15/19 09:00 02/17/19 08:36 20 MG Dopamine HCl/ Dextrose 250 ml @ 10.121 mls/ hr CONT PRN 02/14/19 20:00 02/14/19 20:32 13 MLS/HR Enoxaparin Sodium (Lovenox 30mg Syringe) 30 mg Q24H 02/14/19 21:00 02/17/19 22:01 30 MG Enoxaparin Sodium (Lovenox 40mg Syringe) 40 mg Q12HR 02/16/19 21:00 UNV Famotidine (Pepcid Vial) 20 mg QHS 02/16/19 21:00 Cancel Fentanyl Citrate (Fentanyl 2ml Vial) 50 mcg PRN Q1HR PRN 02/16/19 17:30 Cancel Furosemide (Lasix) 20 mg 1X ONCE 02/15/19 10:15 02/15/19 10:16 DC 02/15/19 11:42 20 MG Info (Tpn Per Pharmacy) 1 each PRN DAILY PRN 02/17/19 10:45 02/17/19 13:29 1 EACH Lactobacillus Rhamnosus (Culturelle) 1 cap BID 02/15/19 21:00 02/17/19 22:00 1 CAP Levofloxacin/ Dextrose 150 ml @ 100 mls/hr 1X ONCE 02/14/19 16:45 02/14/19 18:14 DC 02/14/19 18:17 100 MLS/HR Linezolid/Dextrose 300 ml @ 300 mls/hr Q12HR 02/14/19 21:00 02/17/19 08:56 DC 02/17/19 08:36 300 MLS/HR Magnesium Sulfate 50 ml @ 25 mls/hr 1X ONCE 02/17/19 14:00 02/17/19 15:59 DC 02/17/19 14:41 25 MLS/HR Midazolam HCl 100 ml @ 5 mls/hr CONT PRN 02/16/19 17:30 Cancel Morphine Sulfate (Morphine Sulfate) 4 mg PRN Q1HR PRN 02/16/19 17:30 Cancel Norepinephrine Bitartrate 250 ml @ 12.97 mls/ hr CONT PRN 02/14/19 21:15 02/16/19 23:40 12.97 MLS/HR Ondansetron HCl (Zofran) 4 mg PRN Q6HRS PRN 02/14/19 21:30 02/15/19 15:42 4 MG Pantoprazole Sodium (PROTONIX VIAL for IV PUSH) 40 mg BIDAC 02/15/19 16:30 02/17/19 16:47 40 MG Pantoprazole Sodium (Protonix) 40 mg BIDAC 02/15/19 07:30 02/15/19 13:49 DC 02/15/19 08:43 40 MG Piperacillin Sod/ Tazobactam Sod 3.375 gm/Sodium Chloride 50 ml @ 100 mls/hr Q8HRS 02/14/19 22:00 02/18/19 05:18 100 MLS/HR Potassium Chloride/Water 100 ml @ 100 mls/hr Q1H 02/15/19 12:00 02/15/19 15:59 DC 02/15/19 14:53 100 MLS/HR Potassium Phosphate 13.6 mmol/Dextrose 104.5333 ml @ 52.267 m... Q2H 02/17/19 14:00 02/17/19 17:59 DC 02/17/19 15:49 52.267 MLS/HR Propofol 100 ml @ 1.061 mls/ hr CONT PRN 02/16/19 17:30 Cancel Sodium Chloride 1,000 ml @ 100 mls/hr Q10H 02/17/19 18:15 02/17/19 22:01 100 MLS/HR Sodium Chloride 90 meq/Potassium Acetate 50 meq/ Potassium Phosphate 20 mmol/ Magnesium Sulfate 15 meq/Calcium Gluconate 10 meq/ Multivitamins 10 ml/Chromium/ Copper/Manganese/ Seleni/Zn 1 ml/ Total Parenteral Nutrition/Amino Acids/Dextrose/ Fat Emulsion Intravenous 1,512 ml @ 63 mls/hr TPN CONT 02/17/19 22:00 02/18/19 21:59 02/17/19 22:02 63 MLS/HR Vancomycin HCl 250 ml @ 250 mls/hr 1X ONCE 02/14/19 17:00 02/14/19 17:59 DC 02/14/19 17:36 250 MLS/HR Labs: Lab Laboratory Tests Test 02/17/19 09:15 02/17/19 11:45 02/18/19 05:40 Mixed Venous Blood pH Mixed Venous Blood PCO2 mmHg Mixed Venous Blood PO2 < 42 mmHg Mixed Venous Blood HCO3 mmol/L Mixed Venous Blood Base Excess mmol/L Mixed Venous Blood O2 Saturation 73 % Phosphorus Level 2.2 mg/dL (2.6-4.7) 3.1 mg/dL (2.6-4.7) Magnesium Level 1.5 mg/dL (1.8-2.4) 2.0 mg/dL (1.8-2.4) White Blood Count 2.7 x10^3/uL (4.0-11.0) Red Blood Count 2.74 x10^6/uL (4.30-5.70) Hemoglobin 8.3 g/dL (13.0-17.5) Hematocrit 25.4 % (39.0-53.0) Mean Corpuscular Volume 93 fL (79-100) Mean Corpuscular Hemoglobin 30 pg (25-35) Mean Corpuscular Hemoglobin Concent 33 g/dL (31-37) Red Cell Distribution Width 15.4 % (11.5-14.5) Platelet Count 80 x10^3/uL (140-400) Sodium Level 139 mmol/L (136-145) Potassium Level 3.4 mmol/L (3.5-5.1) Chloride Level 109 mmol/L (98-107) Carbon Dioxide Level 21 mmol/L (21-32) Anion Gap 9 (6-14) Blood Urea Nitrogen 14 mg/dL (8-26) Creatinine 1.6 mg/dL (0.7-1.3) Estimated GFR (Cockcroft-Gault) 41.1 Glucose Level 208 mg/dL (70-99) Calcium Level 6.6 mg/dL (8.5-10.1) Micro cult neg Objective: Assessment: 1. Lactic acidosis,multifactorial,resolved 2. Hypotension secondary to dehydration. 3. History of congestive heart failure. 4. History of renal insufficiency. 5. Large pleural effusion.s/p thoracocentesis 6. Coronary artery disease. 7. Malnutrition with albumin 1.4. 8. Elevated liver function tests. 9. Thrombocytopenia Plan: Plan of Care start empiric ceftriaxone DC Zosyn due to low plt off Zyvox f/u c/s and labs in am D/W SOULEYMANE JAVED MD Feb 18, 2019 08:16
--- NOTE | 2019-02-18 08:31 | PDOC ---
SURGICAL PROGRESS NOTE Subjective Pt without new c/o, appears comfortable Vital Signs Vital Signs Date Time Temp Pulse Resp B/P (MAP) Pulse Ox O2 Delivery O2 Flow Rate FiO2 02/18/19 07:00 97.7 62 12 106/62 (77) 96 Room Air 97.7 02/18/19 06:02 1.0 I&O Intake and Output 02/18/19 07:00 Intake Total 3404 ml Output Total 448 ml Balance 2956 ml Intake Oral 10 ml IV Total 1704 ml Blood Product IV Normal Saline Flush 665 ml Other 1025 ml Output Urine Total 448 ml General: Alert, Cooperative, No acute distress Abdomen: Soft, No tenderness Labs Laboratory Tests Test 02/16/19 19:00 02/17/19 09:15 02/17/19 11:45 02/18/19 05:40 Clostridium difficile Toxin B Gene Negative (Negative) Mixed Venous Blood pH Mixed Venous Blood PCO2 mmHg Mixed Venous Blood PO2 < 42 mmHg Mixed Venous Blood HCO3 mmol/L Mixed Venous Blood Base Excess mmol/L Mixed Venous Blood O2 Saturation 73 % Phosphorus Level 2.2 mg/dL (2.6-4.7) 3.1 mg/dL (2.6-4.7) Magnesium Level 1.5 mg/dL (1.8-2.4) 2.0 mg/dL (1.8-2.4) White Blood Count 2.7 x10^3/uL (4.0-11.0) Red Blood Count 2.74 x10^6/uL (4.30-5.70) Hemoglobin 8.3 g/dL (13.0-17.5) Hematocrit 25.4 % (39.0-53.0) Mean Corpuscular Volume 93 fL (79-100) Mean Corpuscular Hemoglobin 30 pg (25-35) Mean Corpuscular Hemoglobin Concent 33 g/dL (31-37) Red Cell Distribution Width 15.4 % (11.5-14.5) Platelet Count 80 x10^3/uL (140-400) Sodium Level 139 mmol/L (136-145) Potassium Level 3.4 mmol/L (3.5-5.1) Chloride Level 109 mmol/L (98-107) Carbon Dioxide Level 21 mmol/L (21-32) Anion Gap 9 (6-14) Blood Urea Nitrogen 14 mg/dL (8-26) Creatinine 1.6 mg/dL (0.7-1.3) Estimated GFR (Cockcroft-Gault) 41.1 Glucose Level 208 mg/dL (70-99) Calcium Level 6.6 mg/dL (8.5-10.1) Laboratory Tests Test 02/17/19 09:15 02/17/19 11:45 02/18/19 05:40 Mixed Venous Blood pH Mixed Venous Blood PCO2 mmHg Mixed Venous Blood PO2 < 42 mmHg Mixed Venous Blood HCO3 mmol/L Mixed Venous Blood Base Excess mmol/L Mixed Venous Blood O2 Saturation 73 % Phosphorus Level 2.2 mg/dL (2.6-4.7) 3.1 mg/dL (2.6-4.7) Magnesium Level 1.5 mg/dL (1.8-2.4) 2.0 mg/dL (1.8-2.4) White Blood Count 2.7 x10^3/uL (4.0-11.0) Red Blood Count 2.74 x10^6/uL (4.30-5.70) Hemoglobin 8.3 g/dL (13.0-17.5) Hematocrit 25.4 % (39.0-53.0) Mean Corpuscular Volume 93 fL (79-100) Mean Corpuscular Hemoglobin 30 pg (25-35) Mean Corpuscular Hemoglobin Concent 33 g/dL (31-37) Red Cell Distribution Width 15.4 % (11.5-14.5) Platelet Count 80 x10^3/uL (140-400) Sodium Level 139 mmol/L (136-145) Potassium Level 3.4 mmol/L (3.5-5.1) Chloride Level 109 mmol/L (98-107) Carbon Dioxide Level 21 mmol/L (21-32) Anion Gap 9 (6-14) Blood Urea Nitrogen 14 mg/dL (8-26) Creatinine 1.6 mg/dL (0.7-1.3) Estimated GFR (Cockcroft-Gault) 41.1 Glucose Level 208 mg/dL (70-99) Calcium Level 6.6 mg/dL (8.5-10.1) Problem List Problems Medical Problems: (1) Anemia Status: Acute (2) CHF (congestive heart failure) Status: Acute (3) Diarrhea Status: Acute (4) Elevated liver function tests Status: Acute (5) Hypoalbuminemia Status: Acute (6) Hypocalcemia Status: Acute (7) Pleural effusion Status: Acute (8) Renal insufficiency Status: Acute (9) Severe sepsis Status: Acute (10) Tachycardia Status: Acute Assessment/Plan dehydration appears gradual improvement no surgical plans JACK STYLES MD Feb 18, 2019 08:31
--- NOTE | 2019-02-18 08:48 | RAD ---
Ultrasound-guided right-sided thoracentesis 02/18/2019 6:44 AM Indication: RT PLEURAL EFFUSION Procedure: Informed consent was obtained. A timeout procedure was performed. Sonographic evaluation of the right chest was performed demonstrating moderate pleural effusion. The right posterior chest was prepped and draped in sterile fashion. 1% lidocaine without epinephrine was administered for local anesthesia. Real-time ultrasonographic guidance was used in passing a 5 [place] Obsorbeh catheter into the right pleural space. 1.5 L of serosanguineous pleural fluid was removed. Samples of fluid were sent to the lab for further evaluation per ordering physician request. The catheter was removed and pressure held to achieve hemostasis. A sterile dressing was applied. No immediate complications were identified. The patient tolerated the procedure well. Impression: Right sided ultrasound-guided thoracentesis
--- NOTE | 2019-02-18 09:13 | PDOC ---
PULMONARY PROGRESS NOTES Subjective OFF PRESSORS NO RESP DISTRESS Vitals Vital Signs Date Time Temp Pulse Resp B/P (MAP) Pulse Ox O2 Delivery O2 Flow Rate FiO2 02/18/19 09:05 64 12 113/62 (79) 95 Room Air 02/18/19 07:00 97.7 97.7 02/18/19 06:02 1.0 ROS: No Nausea General: Alert Lungs: Crackles, Other Cardiovascular: S1, S2 Abdomen: Soft, Non-tender, Other (no mass) Neuro Exam: Alert Skin: Warm Labs Laboratory Tests Test 02/16/19 19:00 02/17/19 09:15 02/17/19 11:45 02/18/19 05:40 Clostridium difficile Toxin B Gene Negative (Negative) Mixed Venous Blood pH Mixed Venous Blood PCO2 mmHg Mixed Venous Blood PO2 < 42 mmHg Mixed Venous Blood HCO3 mmol/L Mixed Venous Blood Base Excess mmol/L Mixed Venous Blood O2 Saturation 73 % Phosphorus Level 2.2 mg/dL (2.6-4.7) 3.1 mg/dL (2.6-4.7) Magnesium Level 1.5 mg/dL (1.8-2.4) 2.0 mg/dL (1.8-2.4) White Blood Count 2.7 x10^3/uL (4.0-11.0) Red Blood Count 2.74 x10^6/uL (4.30-5.70) Hemoglobin 8.3 g/dL (13.0-17.5) Hematocrit 25.4 % (39.0-53.0) Mean Corpuscular Volume 93 fL (79-100) Mean Corpuscular Hemoglobin 30 pg (25-35) Mean Corpuscular Hemoglobin Concent 33 g/dL (31-37) Red Cell Distribution Width 15.4 % (11.5-14.5) Platelet Count 80 x10^3/uL (140-400) Sodium Level 139 mmol/L (136-145) Potassium Level 3.4 mmol/L (3.5-5.1) Chloride Level 109 mmol/L (98-107) Carbon Dioxide Level 21 mmol/L (21-32) Anion Gap 9 (6-14) Blood Urea Nitrogen 14 mg/dL (8-26) Creatinine 1.6 mg/dL (0.7-1.3) Estimated GFR (Cockcroft-Gault) 41.1 Glucose Level 208 mg/dL (70-99) Calcium Level 6.6 mg/dL (8.5-10.1) Laboratory Tests Test 02/17/19 09:15 02/17/19 11:45 02/18/19 05:40 Mixed Venous Blood pH Mixed Venous Blood PCO2 mmHg Mixed Venous Blood PO2 < 42 mmHg Mixed Venous Blood HCO3 mmol/L Mixed Venous Blood Base Excess mmol/L Mixed Venous Blood O2 Saturation 73 % Phosphorus Level 2.2 mg/dL (2.6-4.7) 3.1 mg/dL (2.6-4.7) Magnesium Level 1.5 mg/dL (1.8-2.4) 2.0 mg/dL (1.8-2.4) White Blood Count 2.7 x10^3/uL (4.0-11.0) Red Blood Count 2.74 x10^6/uL (4.30-5.70) Hemoglobin 8.3 g/dL (13.0-17.5) Hematocrit 25.4 % (39.0-53.0) Mean Corpuscular Volume 93 fL (79-100) Mean Corpuscular Hemoglobin 30 pg (25-35) Mean Corpuscular Hemoglobin Concent 33 g/dL (31-37) Red Cell Distribution Width 15.4 % (11.5-14.5) Platelet Count 80 x10^3/uL (140-400) Sodium Level 139 mmol/L (136-145) Potassium Level 3.4 mmol/L (3.5-5.1) Chloride Level 109 mmol/L (98-107) Carbon Dioxide Level 21 mmol/L (21-32) Anion Gap 9 (6-14) Blood Urea Nitrogen 14 mg/dL (8-26) Creatinine 1.6 mg/dL (0.7-1.3) Estimated GFR (Cockcroft-Gault) 41.1 Glucose Level 208 mg/dL (70-99) Calcium Level 6.6 mg/dL (8.5-10.1) Medications Active Scripts Medications Dose Route/Sig Max Daily Dose Days Date Category Aspirin Ec (Aspirin) 81 Mg Tablet.dr 81 Mg PO DAILYWBKFT 30 10/06/17 Rx Protonix (Pantoprazole Sodium) 20 Mg Tablet.dr 40 Mg PO BID 06/29/17 Reported Escitalopram Oxalate 10 Mg Tablet 10 Mg PO DAILY 03/30/17 Reported Impression . IMPRESSION: 1. Large right-sided effusion, s/p thoracentesis, transudate, due to chf. 2. Septic/cardiogenic shock. 3. Elevated liver chemistries. 4. Wqgdw-os-cdcxkcy congestive heart failure, systolic. 5. Renal insufficiency. 6. Protein malnutrition, present upon admission. echo The systolic function is mildly to moderately impaired. The Ejection Fraction is 40-45%. There is global hypokinesis of the left ventricle. Septal motion suggestive of conduction defect. Plan . TRANSFER OUT OF ICU OFF PRESSORS 1. s/p thoracentesis. transudate, fu cxs cytology 2. Continue IV antibiotics per Infectious Disease service. 3. Follow Cardiology input. 4. keep I<O, monitor k, cr 5. 02 titration to keep sat 92% SUMMER ROY MD Feb 18, 2019 09:13
--- NOTE | 2019-02-18 09:45 | PDOC ---
Subjective: Subjective: Denies pain, doesn't want to eat right now. Objective: Objective: Per nurse - refusing to eat "because he doesn't want to," had 3 stools yesterday. On TPN, pressors. Vital Signs: Vital Signs Date Time Temp Pulse Resp B/P (MAP) Pulse Ox O2 Delivery O2 Flow Rate FiO2 02/18/19 09:05 64 12 113/62 (79) 95 Room Air 02/18/19 07:00 97.7 97.7 02/18/19 06:02 1.0 Labs: Laboratory Tests Test 02/17/19 11:45 02/18/19 05:40 Phosphorus Level 2.2 mg/dL 3.1 mg/dL Magnesium Level 1.5 mg/dL 2.0 mg/dL White Blood Count 2.7 x10^3/uL Red Blood Count 2.74 x10^6/uL Hemoglobin 8.3 g/dL Hematocrit 25.4 % Mean Corpuscular Volume 93 fL Mean Corpuscular Hemoglobin 30 pg Mean Corpuscular Hemoglobin Concent 33 g/dL Red Cell Distribution Width 15.4 % Platelet Count 80 x10^3/uL Sodium Level 139 mmol/L Potassium Level 3.4 mmol/L Chloride Level 109 mmol/L Carbon Dioxide Level 21 mmol/L Anion Gap 9 Blood Urea Nitrogen 14 mg/dL Creatinine 1.6 mg/dL Estimated GFR (Cockcroft-Gault) 41.1 Glucose Level 208 mg/dL Calcium Level 6.6 mg/dL BLOOD CULTURE Preliminary NO GROWTH AFTER 3 DAYS Imaging: SENIOR PORTFOLIO ANALYST Bedside Swallow Eval Bedside swallow eval completed. Pt known from prior adm 12/2016. Videoswallow completed at that time w/finding of non-functional mastication d/t lmtd dentition. Oropharyngeal swallow was functional w/rec for essentially puree diet w/thin liquids. Currently, present in ICU w/pt. She reported intake of lmtd items at home including soup and sweet tea. IMPRESSIONS: Functional swallow for modified diet. Current results generally c/w prior video of 12/2016. However, pt does appear weaker at present and nutritionally deficient. Despite this, pt demos good laryngeal function. No overt s/s aspiration w/puree, thin and honey thick liquids per current eval. Would con't modified diet d/t lmtd dentition and f/u for any additional needs. RECOMMENDATIONS: Dysphagia I diet w/thin liquids. Precautions posted. Try meds 1 at a time w/sips but crush in puree if difficulty. Diet orders entered. DW RNs Kentrell and Ronni, as well as pt and . CXR 02/15 IMPRESSION: Right-sided pleural effusion is much smaller in size after thoracentesis. No pneumothorax is seen. There is significant improved aeration of the right lower lung zone. Small left-sided pleural effusion and associated consolidative left lung base infiltrate is still evident and is unchanged. 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 On TPN. Can pursue esophagram/UGI at some point - still on pressors - will review timing w/ Dr. Odonnell. Would palliative discussion be helpful? PO PPI, also add Carafate. RAS HARRIS Feb 18, 2019 09:45
[2019-02-18] MEDS: LACTOBACILLUS RHAMNOSUS GG 1 CAPSULE. PO SCH ×2 (09:49→23:11)
[2019-02-18] MEDS: ASPIRIN ENTERIC COATED 81 MG TABLET.DR. PO SCH (09:49)
[2019-02-18] MEDS: CITALOPRAM 20 MG TABLET. PO SCH (09:49)
[2019-02-18] MEDS: IV NORMAL SALINE 1000ML BAG 1,000 ML IV SCH (09:50)
[2019-02-18] MEDS: cefTRIAXone IV Push 2 GM VIAL. IVP SCH (09:50)
--- NOTE | 2019-02-18 10:49 | PDOC ---
SUBJECTIVE ROS Refusing to eat, On TPN OBJECTIVE Vital Signs Vital Signs Date Time Temp Pulse Resp B/P (MAP) Pulse Ox O2 Delivery O2 Flow Rate FiO2 02/18/19 10:00 67 12 95/52 (66) 92 Room Air 02/18/19 07:00 97.7 97.7 02/18/19 06:02 1.0 I & 0 Intake and Output 02/18/19 07:00 Intake Total 3404 ml Output Total 448 ml Balance 2956 ml Intake Oral 10 ml IV Total 1704 ml Blood Product IV Normal Saline Flush 665 ml Other 1025 ml Output Urine Total 448 ml PHYSICAL EXAM Physical Exam General: No acute distress,cachectic HEENT: OM dry , On O2 by NC Neck supple Lungs: CTA , decreased BS bases Heart: Regular rate , Normal S1, Normal S2, No murmurs Abdomen: Soft, No tenderness Extremities: 2-3 + EDEMA ( 2/2 severe hypoalbuminemia) Skin: No rash Neuro: grossly normal - Perrin + DIAGNOSIS/ASSESSMENT Assessment & Plan ADAM - Pre-renal 2/2 diarrhea, Poor PO intake Renal function improved - probably at his baseline CT - Cyst vs Hydronephrosis Rt kidney per Radiologist UA unremarkable except for hyaline casts Supportive care, IVF , Monitor, Avoid Nephrotoxins Hypokalemia- Replace as needed , adjust in TPN Hypocalcemia- mildly low correction for Albumin Adjust in TPN CKD stage 3 -Baseline Renal function per [facility] records 1.4-1.7, Pleural Effusion- Rt large S/P Thoracentesis 1.5 LTS 02/15 Anasarca - 2/2 Severe protein malnutrition / Severe HypoAlbuminemia On TPN now 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 Weakness/anorexia/cachexia Chronic anemia DM2 Hx of antrectomy w/ Kb-en-Y and PUD Discussed with RN COMMENT/RELEVANT DATA Meds Current Medications Medications (Trade) Dose Ordered Sig/Enrrique Start Time Stop Time Status Last Admin Dose Admin Albumin Human 250 ml @ 62.5 mls/hr 1X ONCE 02/17/19 14:30 02/17/19 18:29 DC 02/17/19 14:30 62.5 MLS/HR Amino Acids/ Glycerin/ Electrolytes 1,000 ml @ 100 mls/hr Q10H 02/17/19 11:00 02/18/19 09:00 DC 02/17/19 11:08 100 MLS/HR Aspirin (Children'S Aspirin) 81 mg DAILYWBKFT 02/15/19 08:00 02/15/19 09:29 DC 02/15/19 08:43 81 MG Aspirin (Ecotrin) 81 mg DAILYWBKFT 02/16/19 08:00 02/18/19 09:49 81 MG Ceftriaxone Sodium (Rocephin) 2 gm Q24H 02/18/19 09:00 02/18/19 09:50 2 GM Chlorhexidine Gluconate (Peridex) 15 ml BID 02/16/19 21:00 Cancel Citalopram Hydrobromide (CeleXA) 20 mg DAILY 02/15/19 09:00 02/18/19 09:49 20 MG Dopamine HCl/ Dextrose 250 ml @ 10.121 mls/ hr CONT PRN 02/14/19 20:00 02/14/19 20:32 13 MLS/HR Enoxaparin Sodium (Lovenox 30mg Syringe) 30 mg Q24H 02/14/19 21:00 02/17/19 22:01 30 MG Enoxaparin Sodium (Lovenox 40mg Syringe) 40 mg Q12HR 02/16/19 21:00 UNV Famotidine (Pepcid Vial) 20 mg QHS 02/16/19 21:00 Cancel Fentanyl Citrate (Fentanyl 2ml Vial) 50 mcg PRN Q1HR PRN 02/16/19 17:30 Cancel Furosemide (Lasix) 20 mg 1X ONCE 02/15/19 10:15 02/15/19 10:16 DC 02/15/19 11:42 20 MG Info (Tpn Per Pharmacy) 1 each PRN DAILY PRN 02/17/19 10:45 02/17/19 13:29 1 EACH Lactobacillus Rhamnosus (Culturelle) 1 cap BID 02/15/19 21:00 02/18/19 09:49 1 CAP Levofloxacin/ Dextrose 150 ml @ 100 mls/hr 1X ONCE 02/14/19 16:45 02/14/19 18:14 DC 02/14/19 18:17 100 MLS/HR Linezolid/Dextrose 300 ml @ 300 mls/hr Q12HR 02/14/19 21:00 02/17/19 08:56 DC 02/17/19 08:36 300 MLS/HR Magnesium Sulfate 50 ml @ 25 mls/hr 1X ONCE 02/17/19 14:00 02/17/19 15:59 DC 02/17/19 14:41 25 MLS/HR Midazolam HCl 100 ml @ 5 mls/hr CONT PRN 02/16/19 17:30 Cancel Morphine Sulfate (Morphine Sulfate) 4 mg PRN Q1HR PRN 02/16/19 17:30 Cancel Norepinephrine Bitartrate 250 ml @ 12.97 mls/ hr CONT PRN 02/14/19 21:15 02/16/19 23:40 12.97 MLS/HR Ondansetron HCl (Zofran) 4 mg PRN Q6HRS PRN 02/14/19 21:30 02/15/19 15:42 4 MG Pantoprazole Sodium (PROTONIX VIAL for IV PUSH) 40 mg BIDAC 02/15/19 16:30 02/18/19 09:42 DC 02/17/19 16:47 40 MG Pantoprazole Sodium (Protonix) 40 mg DAILYAC 02/19/19 07:30 Piperacillin Sod/ Tazobactam Sod 3.375 gm/Sodium Chloride 50 ml @ 100 mls/hr Q8HRS 02/14/19 22:00 02/18/19 08:16 DC 02/18/19 05:18 100 MLS/HR Potassium Chloride/Water 100 ml @ 100 mls/hr Q1H 02/15/19 12:00 02/15/19 15:59 DC 02/15/19 14:53 100 MLS/HR Potassium Phosphate 13.6 mmol/Dextrose 104.5333 ml @ 52.267 m... Q2H 02/17/19 14:00 02/17/19 17:59 DC 02/17/19 15:49 52.267 MLS/HR Propofol 100 ml @ 1.061 mls/ hr CONT PRN 02/16/19 17:30 Cancel Sodium Chloride 1,000 ml @ 100 mls/hr Q10H 02/17/19 18:15 02/18/19 09:50 100 MLS/HR Sodium Chloride 90 meq/Potassium Acetate 50 meq/ Potassium Phosphate 20 mmol/ Magnesium Sulfate 15 meq/Calcium Gluconate 10 meq/ Multivitamins 10 ml/Chromium/ Copper/Manganese/ Seleni/Zn 1 ml/ Total Parenteral Nutrition/Amino Acids/Dextrose/ Fat Emulsion Intravenous 1,512 ml @ 63 mls/hr TPN CONT 02/17/19 22:00 02/18/19 21:59 02/17/19 22:02 63 MLS/HR Sucralfate (Carafate) 1 gm BIDAC 02/18/19 16:30 Vancomycin HCl 250 ml @ 250 mls/hr 1X ONCE 02/14/19 17:00 02/14/19 17:59 DC 02/14/19 17:36 250 MLS/HR Lab Laboratory Tests Test 02/17/19 11:45 02/18/19 05:40 Phosphorus Level 2.2 mg/dL (2.6-4.7) 3.1 mg/dL (2.6-4.7) Magnesium Level 1.5 mg/dL (1.8-2.4) 2.0 mg/dL (1.8-2.4) White Blood Count 2.7 x10^3/uL (4.0-11.0) Red Blood Count 2.74 x10^6/uL (4.30-5.70) Hemoglobin 8.3 g/dL (13.0-17.5) Hematocrit 25.4 % (39.0-53.0) Mean Corpuscular Volume 93 fL (79-100) Mean Corpuscular Hemoglobin 30 pg (25-35) Mean Corpuscular Hemoglobin Concent 33 g/dL (31-37) Red Cell Distribution Width 15.4 % (11.5-14.5) Platelet Count 80 x10^3/uL (140-400) Sodium Level 139 mmol/L (136-145) Potassium Level 3.4 mmol/L (3.5-5.1) Chloride Level 109 mmol/L (98-107) Carbon Dioxide Level 21 mmol/L (21-32) Anion Gap 9 (6-14) Blood Urea Nitrogen 14 mg/dL (8-26) Creatinine 1.6 mg/dL (0.7-1.3) Estimated GFR (Cockcroft-Gault) 41.1 Glucose Level 208 mg/dL (70-99) Calcium Level 6.6 mg/dL (8.5-10.1) Results All relevant outside records, renal labs, imaging studies, telemetry/EKG's were reviewed. DARA ROGERS MD Feb 18, 2019 10:49
--- NOTE | 2019-02-18 11:19 | PDOC ---
KATHY MIRAMONTES HAT BRIM CURLER 02/18/19 1119: CARDIO Progress Notes Date and Time Date of Service 02/18/19 Time of Evaluation 1115 Subjective Subjective: No shortness of breath Vitals Vitals Vital Signs Date Time Temp Pulse Resp B/P (MAP) Pulse Ox O2 Delivery O2 Flow Rate FiO2 02/18/19 10:00 67 12 95/52 (66) 92 Room Air 02/18/19 07:00 97.7 97.7 02/18/19 06:02 1.0 Weight Weight [ ] Input and Output Intake and Output Intake and Output 02/18/19 07:00 Intake Total 3404 ml Output Total 448 ml Balance 2956 ml Intake Oral 10 ml IV Total 1704 ml Blood Product IV Normal Saline Flush 665 ml Other 1025 ml Output Urine Total 448 ml Laboratory Labs Laboratory Tests Test 02/17/19 11:45 02/18/19 05:40 Phosphorus Level 2.2 mg/dL (2.6-4.7) 3.1 mg/dL (2.6-4.7) Magnesium Level 1.5 mg/dL (1.8-2.4) 2.0 mg/dL (1.8-2.4) White Blood Count 2.7 x10^3/uL (4.0-11.0) Red Blood Count 2.74 x10^6/uL (4.30-5.70) Hemoglobin 8.3 g/dL (13.0-17.5) Hematocrit 25.4 % (39.0-53.0) Mean Corpuscular Volume 93 fL (79-100) Mean Corpuscular Hemoglobin 30 pg (25-35) Mean Corpuscular Hemoglobin Concent 33 g/dL (31-37) Red Cell Distribution Width 15.4 % (11.5-14.5) Platelet Count 80 x10^3/uL (140-400) Sodium Level 139 mmol/L (136-145) Potassium Level 3.4 mmol/L (3.5-5.1) Chloride Level 109 mmol/L (98-107) Carbon Dioxide Level 21 mmol/L (21-32) Anion Gap 9 (6-14) Blood Urea Nitrogen 14 mg/dL (8-26) Creatinine 1.6 mg/dL (0.7-1.3) Estimated GFR (Cockcroft-Gault) 41.1 Glucose Level 208 mg/dL (70-99) Calcium Level 6.6 mg/dL (8.5-10.1) Microbiology Micro Microbiology 02/14/19 Blood Culture - Preliminary, Resulted NO GROWTH AFTER 3 DAYS Physical Exam HEENT: Neck Supple W Full Motion Chest: Symmetric LUNGS: Other (diminished bases ) Heart: S1S2, RRR Abdomen: Soft N/T Extremities: Other (trace bilateral LE edema ) Neurology: alert, follow commands Assessment Assessment 1. Acute respiratory failure, pleural effusion; s/p thoracentesis 2. Acute on chronic systolic HF 3. Combined ICM/NICM; LVEF 40-45% 4. Shock; off pressor support, but BP remains low end 5. CAD: past CABG. 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 6. Weakness/anorexia/cachexia 7. Protein calorie malnutrition, anasarca 8. FTT; refusing to eat. on TPN 9. Chronic anemia 10. ADAM on CKD; better 11. Hypokalemia, hypomagnesemia 12. Diabetes, II Recommendations Continue ASA HF regimen when BP consistently adequate Supportive care Consider palliative care EMBER GRAY MD 02/18/19 2154: CARDIO Progress Notes Plan Plan Pt. seen and examined. AGree with above LOOM CONTROL CHAIN BUILDER note. He is not eating, appears very weak. Needs palliative care/hospice evaluation Supportive care from CV standpoint KATHY MIRAMONTES APRN Feb 18, 2019 11:19 EMBER GRAY MD Feb 18, 2019 21:54
[2019-02-18] MEDS: TPN PER PHARMACY MC PRN ×3 (12:51→13:57)
--- NOTE | 2019-02-18 13:03 | NUR ---
Patient declines lunch at this time.
--- NOTE | 2019-02-18 15:23 | NUR ---
SS following up with discharge planning. PT/OT recommended care home unit. SS contacted pt's family to discuss discharge planning and care home unit. Pt's family reported that pt has been to [facility], ; fax [phone], in the past and would like referral phoned and faxed to [facility]. SS phoned and faxed referral. SS will await acceptance decision and insurance determination and will proceed accordingly with discharge planning.
--- NOTE | 2019-02-18 15:26 | PDOC ---
PROGRESS NOTES Chief Complaint Chief Complaint sepsis, with hypotension, - improved to resolved, N/v, diarrhea and H/o dysphagia/esophageal dysmotility chronic systolic CHF pleural effusions, anasarca, from CAD acute renal failure severe malnutrition chronic anemia, coagulopathy, transaminitis, deaf S/p antrectomy w/ Kb-en-Y and J tube placement/removal History of Present Illness History of Present Illness can try out of icu he is not eating, started TPN he has refused NG tube feeds, consider palliative care, discussed with CV consult no event vitals better mult other consults following Vitals Vitals Vital Signs Date Time Temp Pulse Resp B/P (MAP) Pulse Ox O2 Delivery O2 Flow Rate FiO2 02/18/19 13:00 64 12 110/68 (82) 92 Room Air 02/18/19 07:00 97.7 97.7 02/18/19 06:02 1.0 Physical Exam Physical Exam GENERAL: Alert, oriented gentleman, not in any distress. HEENT: Both pupils are round and reacting. No conjunctival lesion, no lesion in the mouth. NECK: Supple, RT IJ looks ok LUNGS: Decreased breath sounds. HEART: S1, S2 regular. No gallop or murmur. ABDOMEN: Soft, nontender, no organomegaly. EXTREMITIES: edema + NEUROLOGIC: Other than poor hearing, the patient does move all the extremities. There is no other focal deficit. General: Alert, Cooperative, No acute distress Heart: Regular rate (SR), Normal S1, Normal S2, No murmurs Lungs: Crackles, Other Abdomen: Soft, No tenderness Extremities: No cyanosis, Other (anasarca) Skin: No breakdown, No significant lesion, Other (pale) Labs LABS Laboratory Tests Test 02/18/19 05:40 White Blood Count 2.7 x10^3/uL (4.0-11.0) Red Blood Count 2.74 x10^6/uL (4.30-5.70) Hemoglobin 8.3 g/dL (13.0-17.5) Hematocrit 25.4 % (39.0-53.0) Mean Corpuscular Volume 93 fL (79-100) Mean Corpuscular Hemoglobin 30 pg (25-35) Mean Corpuscular Hemoglobin Concent 33 g/dL (31-37) Red Cell Distribution Width 15.4 % (11.5-14.5) Platelet Count 80 x10^3/uL (140-400) Sodium Level 139 mmol/L (136-145) Potassium Level 3.4 mmol/L (3.5-5.1) Chloride Level 109 mmol/L (98-107) Carbon Dioxide Level 21 mmol/L (21-32) Anion Gap 9 (6-14) Blood Urea Nitrogen 14 mg/dL (8-26) Creatinine 1.6 mg/dL (0.7-1.3) Estimated GFR (Cockcroft-Gault) 41.1 Glucose Level 208 mg/dL (70-99) Calcium Level 6.6 mg/dL (8.5-10.1) Phosphorus Level 3.1 mg/dL (2.6-4.7) Magnesium Level 2.0 mg/dL (1.8-2.4) Assessment and Plan Assessmemt and Plan Problems Medical Problems: (1) Anemia Status: Acute (2) CHF (congestive heart failure) Status: Acute (3) Diarrhea Status: Acute (4) Elevated liver function tests Status: Acute (5) Hypoalbuminemia Status: Acute (6) Hypocalcemia Status: Acute (7) Pleural effusion Status: Acute (8) Renal insufficiency Status: Acute (9) Severe sepsis Status: Acute (10) Tachycardia Status: Acute Comment Review of Relevant I have reviewed the following items sukhwinder (where applicable) has been applied. Labs Laboratory Tests Test 02/16/19 19:00 02/17/19 09:15 02/17/19 11:45 02/18/19 05:40 Clostridium difficile Toxin B Gene Negative (Negative) Mixed Venous Blood pH Mixed Venous Blood PCO2 mmHg Mixed Venous Blood PO2 < 42 mmHg Mixed Venous Blood HCO3 mmol/L Mixed Venous Blood Base Excess mmol/L Mixed Venous Blood O2 Saturation 73 % Phosphorus Level 2.2 mg/dL (2.6-4.7) 3.1 mg/dL (2.6-4.7) Magnesium Level 1.5 mg/dL (1.8-2.4) 2.0 mg/dL (1.8-2.4) White Blood Count 2.7 x10^3/uL (4.0-11.0) Red Blood Count 2.74 x10^6/uL (4.30-5.70) Hemoglobin 8.3 g/dL (13.0-17.5) Hematocrit 25.4 % (39.0-53.0) Mean Corpuscular Volume 93 fL (79-100) Mean Corpuscular Hemoglobin 30 pg (25-35) Mean Corpuscular Hemoglobin Concent 33 g/dL (31-37) Red Cell Distribution Width 15.4 % (11.5-14.5) Platelet Count 80 x10^3/uL (140-400) Sodium Level 139 mmol/L (136-145) Potassium Level 3.4 mmol/L (3.5-5.1) Chloride Level 109 mmol/L (98-107) Carbon Dioxide Level 21 mmol/L (21-32) Anion Gap 9 (6-14) Blood Urea Nitrogen 14 mg/dL (8-26) Creatinine 1.6 mg/dL (0.7-1.3) Estimated GFR (Cockcroft-Gault) 41.1 Glucose Level 208 mg/dL (70-99) Calcium Level 6.6 mg/dL (8.5-10.1) Laboratory Tests Test 02/18/19 05:40 White Blood Count 2.7 x10^3/uL (4.0-11.0) Red Blood Count 2.74 x10^6/uL (4.30-5.70) Hemoglobin 8.3 g/dL (13.0-17.5) Hematocrit 25.4 % (39.0-53.0) Mean Corpuscular Volume 93 fL (79-100) Mean Corpuscular Hemoglobin 30 pg (25-35) Mean Corpuscular Hemoglobin Concent 33 g/dL (31-37) Red Cell Distribution Width 15.4 % (11.5-14.5) Platelet Count 80 x10^3/uL (140-400) Sodium Level 139 mmol/L (136-145) Potassium Level 3.4 mmol/L (3.5-5.1) Chloride Level 109 mmol/L (98-107) Carbon Dioxide Level 21 mmol/L (21-32) Anion Gap 9 (6-14) Blood Urea Nitrogen 14 mg/dL (8-26) Creatinine 1.6 mg/dL (0.7-1.3) Estimated GFR (Cockcroft-Gault) 41.1 Glucose Level 208 mg/dL (70-99) Calcium Level 6.6 mg/dL (8.5-10.1) Phosphorus Level 3.1 mg/dL (2.6-4.7) Magnesium Level 2.0 mg/dL (1.8-2.4) Microbiology 02/14/19 Blood Culture - Preliminary, Resulted NO GROWTH AFTER 3 DAYS Medications Current Medications Sodium Chloride 1,000 ml @ 1,000 mls/hr Q1H IV Last administered on 02/14/19at 15:55; Start 02/14/19 at 15:34; Stop 02/14/19 at 16:33; Status DC Ondansetron HCl (Zofran) 4 mg 1X ONCE IV Last administered on 02/14/19at 16:09; Start 02/14/19 at 16:30; Stop 02/14/19 at 16:31; Status DC Sodium Chloride 1,000 ml @ 1,000 mls/hr 1X ONCE IV Last administered on 1 at 17:27; Start 02/14/19 at 16:45; Stop 02/14/19 at 17:44; Status DC Piperacillin Sod/ Tazobactam Sod 3.375 gm/Sodium Chloride 50 ml @ 100 mls/hr 1X ONCE IV Last administered on 02/14/19at 17:27; Start 02/14/19 at 18:00; Stop 02/14/19 at 18:29; Status DC Vancomycin HCl 250 ml @ 250 mls/hr 1X ONCE IV Last administered on 02/14/19at 17:36; Start 02/14/19 at 17:00; Stop 02/14/19 at 17:59; Status DC Levofloxacin/ Dextrose 150 ml @ 100 mls/hr 1X ONCE IV Last administered on 02/14/19at 18:17; Start 02/14/19 at 16:45; Stop 02/14/19 at 18:14; Status DC Sodium Chloride 1,000 ml @ 150 mls/hr Q6H40M IV ; Start 02/14/19 at 17:05; Stop 02/14/19 at 21:10; Status DC Dopamine HCl/ Dextrose 250 ml @ 10.121 mls/ hr CONT PRN IV SEE I/O RECORD Last administered on 02/14/19at 20:32; Start 02/14/19 at 20:00 Piperacillin Sod/ Tazobactam Sod 3.375 gm/Sodium Chloride 50 ml @ 100 mls/hr Q8HRS IV Last administered on 02/18/19at 05:18; Start 02/14/19 at 22:00; Stop 02/18/19 at 08:16; Status DC Linezolid/Dextrose 300 ml @ 300 mls/hr Q12HR IV Last administered on 02/17/19at 08:36; Start 02/14/19 at 21:00; Stop 02/17/19 at 08:56; Status DC Enoxaparin Sodium (Lovenox 30mg Syringe) 30 mg Q24H SQ Last administered on 02/17/19at 22:01; Start 02/14/19 at 21:00 Sodium Chloride 1,000 ml @ 75 mls/hr [id number] IV Last administered on 02/17/19at 10:16; Start 02/15/19 at 18:00; Stop 02/17/19 at 18:17; Status DC Pantoprazole Sodium (Protonix) 40 mg BIDAC PO Last administered on 02/15/19 08:43; Start 02/15/19 at 07:30; Stop 02/15/19 at 13:49; Status DC Aspirin (Children'S Aspirin) 81 mg DAILYWBKFT PO Last administered on at 08:43; Start 02/15/19 at 08:00; Stop 02/15/19 at 09:29; Status DC Citalopram Hydrobromide (CeleXA) 20 mg DAILY PO Last administered on 02/18/19at 09:49; Start 02/15/19 at 09:00 Norepinephrine Bitartrate 250 ml @ 12.97 mls/ hr CONT PRN IV SEE I/O RECORD Last administered on 02/16/19at 23:40; Start 02/14/19 at 21:15 Sodium Chloride 500 ml @ 500 mls/hr 1X ONCE IV Last administered on 02/14/19at 21:40; Start 02/14/19 at 21:15; Stop 02/14/19 at 22:14; Status DC Ondansetron HCl (Zofran) 4 mg PRN Q6HRS PRN IVP NAUSEA/VOMITING Last administered on 02/15/19at 15:42; Start 02/14/19 at 21:30 Albumin Human 100 ml @ 100 mls/hr 1X ONCE IV Last administered on 02/15/19at 10:37; Start 02/15/19 at 09:15; Stop 02/15/19 at 10:14; Status DC Furosemide (Lasix) 20 mg 1X ONCE IVP Last administered on 02/15/19at 11:42; Start 02/15/19 at 10:15; Stop 02/15/19 at 10:16; Status DC Aspirin (Ecotrin) 81 mg DAILYWBKFT PO Last administered on 02/18/19at 09:49; Start 02/16/19 at 08:00 Potassium Chloride/Water 100 ml @ 100 mls/hr Q1H IV Last administered on 02/15/19 14:53; Start 02/15/19 at 12:00; Stop 02/15/19 at 15:59; Status DC Lactobacillus Rhamnosus (Culturelle) 1 cap BID PO Last administered on 02/18/19at 09:49; Start 02/15/19 at 21:00 Pantoprazole Sodium (PROTONIX VIAL for IV PUSH) 40 mg BIDAC IVP Last administered on 02/17/19at 16:47; Start 02/15/19 at 16:30; Stop 02/18/19 at 09:42; Status DC Fentanyl Citrate 30 ml @ 0 mls/hr CONT PRN IV SEE PROTOCOL; Start 02/16/19 at 17:30; Status Cancel Fentanyl Citrate (Fentanyl 2ml Vial) 25 mcg PRN Q1HR PRN IV SEE COMMENTS; Start 02/16/19 at 17:30; Status Cancel Fentanyl Citrate (Fentanyl 2ml Vial) 50 mcg PRN Q1HR PRN IV SEE COMMENTS; Start 02/16/19 at 17:30; Status Cancel Chlorhexidine Gluconate (Peridex) 15 ml BID MM ; Start 02/16/19 at 21:00; Status Cancel Famotidine (Pepcid Vial) 20 mg QHS IVP ; Start 02/16/19 at 21:00; Status Cancel Morphine Sulfate (Morphine Sulfate) 2 mg PRN Q1HR PRN IV SEE COMMENTS.; Start 02/16/19 at 17:30; Status Cancel Morphine Sulfate (Morphine Sulfate) 4 mg PRN Q1HR PRN IV SEE COMMENTS.; Start 02/16/19 at 17:30; Status Cancel Enoxaparin Sodium (Lovenox 40mg Syringe) 40 mg Q12HR SQ ; Start 02/16/19 at 21:00; Status UNV Midazolam HCl 100 ml @ 5 mls/hr CONT PRN IV SEE I/O RECORD; Start 02/16/19 at 17:30; Status Cancel Propofol 100 ml @ 1.061 mls/ hr CONT PRN IV SEE I/O RECORD; Start 02/16/19 at 17:30; Status Cancel Info (Tpn Per Pharmacy) 1 each PRN DAILY PRN MC SEE COMMENTS Last administered on 02/18/19at 13:57; Start 02/17/19 at 10:45 Amino Acids/ Glycerin/ Electrolytes 1,000 ml @ 100 mls/hr Q10H IV Last administered on 02/17/19at 11:08; Start 02/17/19 at 11:00; Stop 02/18/19 at 09:00; Status DC Potassium Phosphate 13.6 mmol/Dextrose 104.5333 ml @ 52.267 m... Q2H IV Last administered on 02/17/19at 15:49; Start 02/17/19 at 14:00; Stop 02/17/19 at 17:59; Status DC Magnesium Sulfate 50 ml @ 25 mls/hr 1X ONCE IV Last administered on 02/17/19at 14:41; Start 02/17/19 at 14:00; Stop 02/17/19 at 15:59; Status DC Sodium Chloride 90 meq/Potassium Acetate 50 meq/ Potassium Phosphate 20 mmol/ Magnesium Sulfate 15 meq/Calcium Gluconate 10 meq/ Multivitamins 10 ml/Chromium/ Copper/Manganese/ Seleni/Zn 1 ml/ Total Parenteral Nutrition/Amino Acids/ Dextrose/ Fat Emulsion Intravenous 1,512 ml @ 63 mls/hr TPN CONT IV Last administered on 02/17/19at 22:02; Start 02/17/19 at 22:00; Stop 02/18/19 at 13:04; Status DC Albumin Human 250 ml @ 62.5 mls/hr 1X ONCE IV Last administered on 02/17/19at 14:30; Start 02/17/19 at 14:30; Stop 02/17/19 at 18:29; Status DC Sodium Chloride 1,000 ml @ 100 mls/hr Q10H IV Last administered on 02/18/19at 09:50; Start 02/17/19 at 18:15 Ceftriaxone Sodium (Rocephin) 2 gm Q24H IVP Last administered on 02/18/19at 0 9:50; Start 02/18/19 at 09:00 Pantoprazole Sodium (Protonix) 40 mg DAILYAC PO ; Start 02/19/19 at 07:30 Sucralfate (Carafate) 1 gm BIDAC PO ; Start 02/18/19 at 16:30 Sodium Chloride 90 meq/Potassium Acetate 70 meq/ Potassium Phosphate 15 mmol/ Magnesium Sulfate 12 meq/Calcium Gluconate 13 meq/ Multivitamins 10 ml/Chromium/ Copper/Manganese/ Seleni/Zn 1 ml/ Total Parenteral Nutrition/Amino Acids/Dextrose/ Fat Emulsion Intravenous 1,512 ml @ 63 mls/hr TPN CONT IV ; Start 02/18/19 at 22:00; Stop 02/18/19 at 13:55; Status DC Sodium Chloride 90 meq/Potassium Acetate 70 meq/ Potassium Phosphate 15 mmol/ Magnesium Sulfate 12 meq/Calcium Gluconate 13 meq/ Multivitamins 10 ml/Chromium/ Copper/Manganese/ Seleni/Zn 1 ml/ Total Parenteral Nutrition/Amino Acids/D extrose/ Fat Emulsion Intravenous 1,512 ml @ 63 mls/hr TPN CONT IV ; Start 02/18/19 at 22:00; Stop 02/19/19 at 21:59 Active Scripts Active Aspirin Ec (Aspirin) 81 Mg Tablet. 81 Mg PO DAILYWBKFT 30 Days Reported Protonix (Pantoprazole Sodium) 20 Mg Tablet. 40 Mg PO BID Escitalopram Oxalate 10 Mg Tablet 10 Mg PO DAILY Vitals/I & O Vital Sign - Last 24 Hours 02/17/19 02/17/19 02/17/19 02/17/19 16:00 16:00 17:00 18:07 Pulse 67 70 68 Resp 18 18 18 B/P (MAP) 88/51 (63) 94/53 (67) 90/51 (64) Pulse Ox 100 100 100 O2 Delivery Room Air Room Air Room Air Room Air O2 Flow Rate 1.0 1.0 1.0 1.0 02/17/19 02/17/19 02/17/19 02/17/19 19:17 19:18 20:07 21:00 Temp 97.5 97.5 Pulse 69 66 65 Resp 18 B/P (MAP) 94/55 (68) 84/46 (59) 84/47 (59) Pulse Ox 94 O2 Delivery Nasal Cannula Nasal Cannula O2 Flow Rate 1.0 1.0 02/17/19 02/17/19 02/18/19 02/18/19 22:00 23:14 00:02 00:04 Temp 97.5 97.5 Pulse 67 69 67 Resp 18 B/P (MAP) 87/51 (63) 89/49 (62) 96/51 (66) Pulse Ox 96 O2 Delivery Nasal Cannula Nasal Cannula O2 Flow Rate 1.0 1.0 02/18/19 02/18/19 02/18/19 02/18/19 02:02 03:02 04:00 04:00 Pulse 69 69 71 Resp 20 18 18 B/P (MAP) 94/53 (67) 84/56 (65) 94/49 (64) Pulse Ox 94 98 94 O2 Delivery Nasal Cannula Nasal Cannula Nasal Cannula Nasal Cannula O2 Flow Rate 1.0 1.0 1.0 1.0 02/18/19 02/18/19 02/18/19 02/18/19 05:15 06:02 07:00 08:00 Temp 97.4 97.7 97.4 97.7 Pulse 69 63 62 66 Resp 20 18 12 12 B/P (MAP) 85/50 (62) 94/57 (69) 106/62 (77) 106/65 (79) Pulse Ox 94 96 96 96 O2 Delivery Nasal Cannula Nasal Cannula Room Air Room Air O2 Flow Rate 1.0 1.0 02/18/19 02/18/19 02/18/19 02/18/19 08:00 09:05 10:00 11:00 Pulse 64 67 66 Resp 12 12 12 B/P (MAP) 113/62 (79) 95/52 (66) 112/66 (81) Pulse Ox 95 92 94 O2 Delivery Room Air Room Air Room Air Room Air 02/18/19 02/18/19 02/18/19 12:00 12:00 13:00 Pulse 67 64 Resp 16 12 B/P (MAP) 100/61 (74) 110/68 (82) Pulse Ox 95 92 O2 Delivery Room Air Room Air Room Air Intake and Output 02/17/19 02/17/19 02/18/19 15:00 23:00 07:00 Intake Total 1275 ml 425 ml 1704 ml Output Total 133 ml 135 ml 180 ml Balance 1142 ml 290 ml 1524 ml Nutrition Consultation Dietary Evaluation: Recommendations by RD: Increase Calorie Intake, PPN/TPN Comments: REC TPN per followin g dextrose, 60 g AA, 20 g lipids REC continue w/dysphagia I/thin liquid diet as ordered per [employer]IST, encourage oral supplement use when pt willing Expected Outcomes/Goals: Nutrition support + PO intake to meet >75% est needs - met, goal ongoing Malnutrition Findings: Body Fat Depletion (Non Severe: Mild Depletion Weight Status: Appropriate JENNIFER CORTÉS MD Feb 18, 2019 15:26
[2019-02-18] MEDS: SUCRALFATE 1 GM/10 ML ORAL.SUSP. PO SCH (16:30)
--- NOTE | 2019-02-18 17:08 | NUR ---
Pharmacy TPN Dosing Note S: CLAUDIO IBANEZ is a 88 year old M Currently receiving Central Continuous TPN started 02/17/19 B:Pertinent PMH: NPO/MALNOURISHED Height: 5 feet, 6 inches Weight: 73.741258 kg Current diet: NPO LABS: Sodium: 139 Potassium: 3.4 Chloride: 109 Calcium: 6.6 Corrected Calcium: 8.76 Magnesium: 2.0 CO2: 24 SCr: 1.6 Glucose: 208 Albumin: 1.3 AST: 69 ALT: 28 TPN FORMULA: TPN TYPE: Central Continuous AMINO ACIDS: 60 gm DEXTROSE: 225 gm LIPIDS: 20 gm SODIUM CHLORIDE: 90 mEq SODIUM ACETATE: mEq SODIUM PHOSPHATE: mmol POTASSIUM CHLORIDE: mEq POTASSIUM ACETATE: 70 mEq POTASSIUM PHOSPHATE: 15 mmol MAGNESIUM: 12 mEq CALCIUM: 13 mEq INSULIN: units MULTIPLE VITAMIN: 10 ml TRACE ELEMENTS: 1 ml(s) TPN PLAN: -increase kacetate to 70 meq, and ines gluc to 13 meq, decrease kphos to 15 mmand magso4 to 12 meq. -Labs in the am R: Continue TPN at 63 ml/hr Will monitor electrolytes, glucose, and tolerance to TPN. LIOR GARDNER [facility], 02/18/19 [id number]
--- NOTE | 2019-02-18 17:28 | PDOC2 ---
PALLIATIVE CARE Palliative Care Note Palliative Care Consult requested by Dr. Raines to address goals of care. Medical Assessment per medical record; sepsis, with hypotension, - improved to resolved, N/v, diarrhea and H/o dysphagia/esophageal dysmotility chronic systolic CHF pleural effusions, anasarca, from CAD acute renal failure severe malnutrition chronic anemia, coagulopathy, transaminitis, deaf S/p antrectomy w/ Bk-en-Y and J tube placement/removal Spoke with family. Code Status; DNR/DNI Family shares patient likely will not want to participate in therapy,. Family notes significant decline past few months. Plan: Family meeting tomorrow at 1500. ENEIDA TRIPP Feb 18, 2019 17:28
--- NOTE | 2019-02-18 18:06 | PATHOLOGY ---
Note [facility] Accession Number: [id number] TESTS RESULT FLAG UNITS REF RANGE LAB Clinician Provided Cytology Information No. of containers..01 Other (Miscellaneous) Source: RT PLEURAL FLUID DIAGNOSIS: RT PLEURAL FLUID NEGATIVE FOR MALIGNANT CELLS. MESOTHELIAL CELLS ARE PRESENT. THIS INTERPRETATION INCLUDES EVALUATION OF A CELL BLOCK. Signed out by: 02 Aubrey Alonso MD, Pathologist NPI- [id number] Performed by: Leonela Piedra Lab Technician ([facility]) Gross description: 01 30 ML, YELLOW, CLEAR /LCS 04/30/1840 0000 Local FLAG LEGEND: L-Low Normal,H-High Normal,LL-Alert Low,HH-Alert High <-Panic Low,>-Panic High,A-Abnormal,AA-Critical Abnormal Performed at: 01 [facility] [address] [place] [address] Teddy Cochran MD, 02 [facility] [address] [place] [address] Aubrey Alonso MD, Specimen Comment: A courtesy copy of this report has been sent to Specimen Comment: [phone], , . Specimen Comment: Report sent to ,DR ROY / DR ZARCO Specimen Comment: A duplicate report has been generated due to demographic updates. Performed at: 01 [facility] [address], [place], [place] [id number] MD Teddy Cochran MD Phone: [phone]
[2019-02-18] MEDS ORDERED: AMINO ACID IV SCH ×20 (22:00)
[2019-02-18] MEDS ORDERED: TOTAL PARENTERAL NUTRITION IV SCH ×20 (22:00)
[2019-02-18] MEDS ORDERED: [UNRECOGNIZED DRUG - OTHER] IV SCH ×20 (22:00)
[2019-02-18] MEDS ORDERED: DEXTROSE 70% IV SCH ×20 (22:00)
[2019-02-18] MEDS: ENOXAPARIN 30 MG/0.3 ML SYRINGE. SQ SCH (23:13)
[2019-02-19] MEDS: IV NORMAL SALINE 1000ML BAG 1,000 ML IV SCH ×3 (01:14→22:22)
[2019-02-19 03:00] VITALS: BP 118/65
[2019-02-19 06:04] LABS: CALCIUM 7.1 mg/dL (8.5-10.1); CREATININE 1.5 mg/dL (0.7-1.3); GFR 44.3; MAGNESIUM 2.1 mg/dL (1.8-2.4); PHOSPHORUS 2.7 mg/dL (2.6-4.7); POTASSIUM 3.3 mmol/L (3.5-5.1)
[2019-02-19 07:00] VITALS: BP 98/56
[2019-02-19] MEDS ORDERED: PANTOPRAZOLE 40 MG TABLET.DR. PO SCH (07:30)
[2019-02-19] MEDS: SUCRALFATE 1 GM/10 ML ORAL.SUSP. PO SCH ×2 (07:30→10:37)
[2019-02-19] MEDS: ASPIRIN ENTERIC COATED 81 MG TABLET.DR. PO SCH (08:00)
[2019-02-19] MEDS: CITALOPRAM 20 MG TABLET. PO SCH (08:05)
[2019-02-19] MEDS: LACTOBACILLUS RHAMNOSUS GG 1 CAPSULE. PO SCH (08:05)
--- NOTE | 2019-02-19 08:21 | PDOC ---
Infectious Disease Note Subjective: Subjective pt tx out of icu yesterday He cont to appear weak opens eyes says is " OK" no f/c/n/v/abdo pain d/w rn ROS: ROS limited but as above Vital Signs: Vital Signs Vital Signs Date Time Temp Pulse Resp B/P (MAP) Pulse Ox O2 Delivery O2 Flow Rate FiO2 02/19/19 07:00 97.0 83 18 98/56 (70) 96 Room Air 97.0 Physical Exam: PHYSICAL EXAM GENERAL: Alert, oriented gentleman, not in any distress. HEENT: Both pupils are round and reacting. No conjunctival lesion, no lesion in the mouth. NECK: Supple, RT IJ looks ok LUNGS: Decreased breath sounds. HEART: S1, S2 regular. No gallop or murmur. ABDOMEN: Soft, nontender, mildly distended EXTREMITIES: edema + NEUROLOGIC: Other than poor hearing, the patient does move all the extremities. There is no other focal deficit. Medications: Inpatient Meds: Current Medications Medications (Trade) Dose Ordered Sig/Enrrique Start Time Stop Time Status Last Admin Dose Admin Albumin Human 250 ml @ 62.5 mls/hr 1X ONCE 02/17/19 14:30 02/17/19 18:29 DC 02/17/19 14:30 62.5 MLS/HR Amino Acids/ Glycerin/ Electrolytes 1,000 ml @ 100 mls/hr Q10H 02/17/19 11:00 02/18/19 09:00 DC 02/17/19 11:08 100 MLS/HR Aspirin (Children'S Aspirin) 81 mg DAILYWBKFT 02/15/19 08:00 02/15/19 09:29 DC 02/15/19 08:43 81 MG Aspirin (Ecotrin) 81 mg DAILYWBKFT 02/16/19 08:00 02/18/19 09:49 81 MG Ceftriaxone Sodium (Rocephin) 2 gm Q24H 02/18/19 09:00 02/18/19 09:50 2 GM Chlorhexidine Gluconate (Peridex) 15 ml BID 02/16/19 21:00 Cancel Citalopram Hydrobromide (CeleXA) 20 mg DAILY 02/15/19 09:00 02/18/19 09:49 20 MG Dopamine HCl/ Dextrose 250 ml @ 10.121 mls/ hr CONT PRN 02/14/19 20:00 02/14/19 20:32 13 MLS/HR Enoxaparin Sodium (Lovenox 30mg Syringe) 30 mg Q24H 02/14/19 21:00 02/18/19 23:13 30 MG Enoxaparin Sodium (Lovenox 40mg Syringe) 40 mg Q12HR 02/16/19 21:00 UNV Famotidine (Pepcid Vial) 20 mg QHS 02/16/19 21:00 Cancel Fentanyl Citrate (Fentanyl 2ml Vial) 50 mcg PRN Q1HR PRN 02/16/19 17:30 Cancel Furosemide (Lasix) 20 mg 1X ONCE 02/15/19 10:15 02/15/19 10:16 DC 02/15/19 11:42 20 MG Info (Tpn Per Pharmacy) 1 each PRN DAILY PRN 02/17/19 10:45 02/18/19 13:57 1 EACH Lactobacillus Rhamnosus (Culturelle) 1 cap BID 02/15/19 21:00 02/18/19 23:11 1 CAP Levofloxacin/ Dextrose 150 ml @ 100 mls/hr 1X ONCE 02/14/19 16:45 02/14/19 18:14 DC 02/14/19 18:17 100 MLS/HR Linezolid/Dextrose 300 ml @ 300 mls/hr Q12HR 02/14/19 21:00 02/17/19 08:56 DC 02/17/19 08:36 300 MLS/HR Magnesium Sulfate 50 ml @ 25 mls/hr 1X ONCE 02/17/19 14:00 02/17/19 15:59 DC 02/17/19 14:41 25 MLS/HR Midazolam HCl 100 ml @ 5 mls/hr CONT PRN 02/16/19 17:30 Cancel Morphine Sulfate (Morphine Sulfate) 4 mg PRN Q1HR PRN 02/16/19 17:30 Cancel Norepinephrine Bitartrate 250 ml @ 12.97 mls/ hr CONT PRN 02/14/19 21:15 02/16/19 23:40 12.97 MLS/HR Ondansetron HCl (Zofran) 4 mg PRN Q6HRS PRN 02/14/19 21:30 02/15/19 15:42 4 MG Pantoprazole Sodium (PROTONIX VIAL for IV PUSH) 40 mg BIDAC 02/15/19 16:30 02/18/19 09:42 DC 02/17/19 16:47 40 MG Pantoprazole Sodium (Protonix) 40 mg DAILYAC 02/19/19 07:30 Piperacillin Sod/ Tazobactam Sod 3.375 gm/Sodium Chloride 50 ml @ 100 mls/hr Q8HRS 02/14/19 22:00 02/18/19 08:16 DC 02/18/19 05:18 100 MLS/HR Potassium Chloride/Water 100 ml @ 100 mls/hr Q1H 02/15/19 12:00 02/15/19 15:59 DC 02/15/19 14:53 100 MLS/HR Potassium Phosphate 13.6 mmol/Dextrose 104.5333 ml @ 52.267 m... Q2H 02/17/19 14:00 02/17/19 17:59 DC 02/17/19 15:49 52.267 MLS/HR Propofol 100 ml @ 1.061 mls/ hr CONT PRN 02/16/19 17:30 Cancel Sodium Chloride 90 meq/Potassium Acetate 50 meq/ Potassium Phosphate 20 mmol/ Magnesium Sulfate 15 meq/Calcium Gluconate 10 meq/ Multivitamins 10 ml/Chromium/ Copper/Manganese/ Seleni/Zn 1 ml/ Total Parenteral Nutrition/Amino Acids/Dextrose/ Fat Emulsion Intravenous 1,512 ml @ 63 mls/hr TPN CONT 02/17/19 22:00 02/18/19 13:04 DC 02/17/19 22:02 63 MLS/HR Sodium Chloride 90 meq/Potassium Acetate 70 meq/ Potassium Phosphate 15 mmol/ Magnesium Sulfate 12 meq/Calcium Gluconate 13 meq/ Multivitamins 10 ml/Chromium/ Copper/Manganese/ Seleni/Zn 1 ml/ Total Parenteral Nutrition/Amino Acids/Dextrose/ Fat Emulsion Intravenous 1,512 ml @ 63 mls/hr TPN CONT 02/18/19 22:00 02/19/19 21:59 02/18/19 23:13 63 MLS/HR Sucralfate (Carafate) 1 gm BIDAC 02/18/19 16:30 Vancomycin HCl 250 ml @ 250 mls/hr 1X ONCE 02/14/19 17:00 02/14/19 17:59 DC 02/14/19 17:36 250 MLS/HR Labs: Lab Laboratory Tests Test 02/18/19 21:01 02/19/19 05:35 02/19/19 07:27 Glucose (Fingerstick) 209 mg/dL (70-99) 213 mg/dL (70-99) Sodium Level 140 mmol/L (136-145) Potassium Level 3.3 mmol/L (3.5-5.1) Chloride Level 111 mmol/L (98-107) Carbon Dioxide Level 20 mmol/L (21-32) Anion Gap 9 (6-14) Blood Urea Nitrogen 14 mg/dL (8-26) Creatinine 1.5 mg/dL (0.7-1.3) Estimated GFR (Cockcroft-Gault) 44.3 Glucose Level 244 mg/dL (70-99) Calcium Level 7.1 mg/dL (8.5-10.1) Phosphorus Level 2.7 mg/dL (2.6-4.7) Magnesium Level 2.1 mg/dL (1.8-2.4) Micro cult neg Objective: Assessment: 1. Lactic acidosis,multifactorial,resolved 2. Hypotension secondary to dehydration.resolved 3. History of congestive heart failure. 4. History of renal insufficiency. 5. Large pleural effusion.s/p thoracocentesis ,transudate 6. Coronary artery disease. 7. Malnutrition with albumin 1.4. 8. Elevated liver function tests. 9. Thrombocytopenia Plan: Plan of Care cont ceftriaxone add empiric flagyl off zyvox dc zosyn due to thrombocytopenia f/u c/s and labs in am awaiting palliative care meeting this pm GI following D/W family at bedside D/W SOULEYMANE JAVED MD Feb 19, 2019 08:21
[2019-02-19] MEDS: cefTRIAXone IV Push 2 GM VIAL. IVP SCH (09:03)
[2019-02-19] MEDS ORDERED: ACETAMINOPHEN 500 MG TABLET PO PRN (09:15)
--- NOTE | 2019-02-19 09:23 | PDOC ---
SURGICAL PROGRESS NOTE Subjective sleeping this am no acute distress family present plans for palliative meeting today Vital Signs Vital Signs Date Time Temp Pulse Resp B/P (MAP) Pulse Ox O2 Delivery O2 Flow Rate FiO2 02/19/19 07:00 97.0 83 18 98/56 (70) 96 Room Air 97.0 I&O Intake and Output 02/19/19 07:00 Intake Total 1941 ml Output Total 560 ml Balance 1381 ml Intake Oral 70 ml IV Total 1871 ml Output Urine Total 560 ml General: Cooperative, No acute distress Abdomen: Soft, No tenderness Labs Laboratory Tests Test 02/17/19 11:45 02/18/19 05:40 02/18/19 21:01 02/19/19 05:35 Phosphorus Level 2.2 mg/dL (2.6-4.7) 3.1 mg/dL (2.6-4.7) 2.7 mg/dL (2.6-4.7) Magnesium Level 1.5 mg/dL (1.8-2.4) 2.0 mg/dL (1.8-2.4) 2.1 mg/dL (1.8-2.4) White Blood Count 2.7 x10^3/uL (4.0-11.0) Red Blood Count 2.74 x10^6/uL (4.30-5.70) Hemoglobin 8.3 g/dL (13.0-17.5) Hematocrit 25.4 % (39.0-53.0) Mean Corpuscular Volume 93 fL (79-100) Mean Corpuscular Hemoglobin 30 pg (25-35) Mean Corpuscular Hemoglobin Concent 33 g/dL (31-37) Red Cell Distribution Width 15.4 % (11.5-14.5) Platelet Count 80 x10^3/uL (140-400) Sodium Level 139 mmol/L (136-145) 140 mmol/L (136-145) Potassium Level 3.4 mmol/L (3.5-5.1) 3.3 mmol/L (3.5-5.1) Chloride Level 109 mmol/L (98-107) 111 mmol/L (98-107) Carbon Dioxide Level 21 mmol/L (21-32) 20 mmol/L (21-32) Anion Gap 9 (6-14) 9 (6-14) Blood Urea Nitrogen 14 mg/dL (8-26) 14 mg/dL (8-26) Creatinine 1.6 mg/dL (0.7-1.3) 1.5 mg/dL (0.7-1.3) Estimated GFR (Cockcroft-Gault) 41.1 44.3 Glucose Level 208 mg/dL (70-99) 244 mg/dL (70-99) Calcium Level 6.6 mg/dL (8.5-10.1) 7.1 mg/dL (8.5-10.1) Glucose (Fingerstick) 209 mg/dL (70-99) Test 02/19/19 07:27 Glucose (Fingerstick) 213 mg/dL (70-99) Laboratory Tests Test 02/18/19 21:01 02/19/19 05:35 02/19/19 07:27 Glucose (Fingerstick) 209 mg/dL (70-99) 213 mg/dL (70-99) Sodium Level 140 mmol/L (136-145) Potassium Level 3.3 mmol/L (3.5-5.1) Chloride Level 111 mmol/L (98-107) Carbon Dioxide Level 20 mmol/L (21-32) Anion Gap 9 (6-14) Blood Urea Nitrogen 14 mg/dL (8-26) Creatinine 1.5 mg/dL (0.7-1.3) Estimated GFR (Cockcroft-Gault) 44.3 Glucose Level 244 mg/dL (70-99) Calcium Level 7.1 mg/dL (8.5-10.1) Phosphorus Level 2.7 mg/dL (2.6-4.7) Magnesium Level 2.1 mg/dL (1.8-2.4) Problem List Problems Medical Problems: (1) Anemia Status: Acute (2) CHF (congestive heart failure) Status: Acute (3) Diarrhea Status: Acute (4) Elevated liver function tests Status: Acute (5) Hypoalbuminemia Status: Acute (6) Hypocalcemia Status: Acute (7) Pleural effusion Status: Acute (8) Renal insufficiency Status: Acute (9) Severe sepsis Status: Acute (10) Tachycardia Status: Acute Assessment/Plan no surgical plans await palliative decisions GABINO MERRILL APRN Feb 19, 2019 09:23
--- NOTE | 2019-02-19 09:36 | PDOC ---
PULMONARY PROGRESS NOTES Subjective NO RESP DISTRESS Vitals Vital Signs Date Time Temp Pulse Resp B/P (MAP) Pulse Ox O2 Delivery O2 Flow Rate FiO2 02/19/19 07:00 97.0 83 18 98/56 (70) 96 Room Air 97.0 ROS: No Nausea, No Chest Pain, No Increase Cough General: Alert Lungs: Crackles, Other Cardiovascular: S1, S2 Abdomen: Soft, Non-tender, Other (no mass) Neuro Exam: Alert Skin: Warm Labs Laboratory Tests Test 02/17/19 11:45 02/18/19 05:40 02/18/19 21:01 02/19/19 05:35 Phosphorus Level 2.2 mg/dL (2.6-4.7) 3.1 mg/dL (2.6-4.7) 2.7 mg/dL (2.6-4.7) Magnesium Level 1.5 mg/dL (1.8-2.4) 2.0 mg/dL (1.8-2.4) 2.1 mg/dL (1.8-2.4) White Blood Count 2.7 x10^3/uL (4.0-11.0) Red Blood Count 2.74 x10^6/uL (4.30-5.70) Hemoglobin 8.3 g/dL (13.0-17.5) Hematocrit 25.4 % (39.0-53.0) Mean Corpuscular Volume 93 fL (79-100) Mean Corpuscular Hemoglobin 30 pg (25-35) Mean Corpuscular Hemoglobin Concent 33 g/dL (31-37) Red Cell Distribution Width 15.4 % (11.5-14.5) Platelet Count 80 x10^3/uL (140-400) Sodium Level 139 mmol/L (136-145) 140 mmol/L (136-145) Potassium Level 3.4 mmol/L (3.5-5.1) 3.3 mmol/L (3.5-5.1) Chloride Level 109 mmol/L (98-107) 111 mmol/L (98-107) Carbon Dioxide Level 21 mmol/L (21-32) 20 mmol/L (21-32) Anion Gap 9 (6-14) 9 (6-14) Blood Urea Nitrogen 14 mg/dL (8-26) 14 mg/dL (8-26) Creatinine 1.6 mg/dL (0.7-1.3) 1.5 mg/dL (0.7-1.3) Estimated GFR (Cockcroft-Gault) 41.1 44.3 Glucose Level 208 mg/dL (70-99) 244 mg/dL (70-99) Calcium Level 6.6 mg/dL (8.5-10.1) 7.1 mg/dL (8.5-10.1) Glucose (Fingerstick) 209 mg/dL (70-99) Test 02/19/19 07:27 Glucose (Fingerstick) 213 mg/dL (70-99) Laboratory Tests Test 02/18/19 21:01 02/19/19 05:35 02/19/19 07:27 Glucose (Fingerstick) 209 mg/dL (70-99) 213 mg/dL (70-99) Sodium Level 140 mmol/L (136-145) Potassium Level 3.3 mmol/L (3.5-5.1) Chloride Level 111 mmol/L (98-107) Carbon Dioxide Level 20 mmol/L (21-32) Anion Gap 9 (6-14) Blood Urea Nitrogen 14 mg/dL (8-26) Creatinine 1.5 mg/dL (0.7-1.3) Estimated GFR (Cockcroft-Gault) 44.3 Glucose Level 244 mg/dL (70-99) Calcium Level 7.1 mg/dL (8.5-10.1) Phosphorus Level 2.7 mg/dL (2.6-4.7) Magnesium Level 2.1 mg/dL (1.8-2.4) Medications Active Scripts Medications Dose Route/Sig Max Daily Dose Days Date Category Aspirin Ec (Aspirin) 81 Mg Tablet.dr 81 Mg PO DAILYWBKFT 30 10/06/17 Rx Protonix (Pantoprazole Sodium) 20 Mg Tablet.dr 40 Mg PO BID 06/29/17 Reported Escitalopram Oxalate 10 Mg Tablet 10 Mg PO DAILY 03/30/17 Reported Impression . IMPRESSION: 1. Large right-sided effusion, s/p thoracentesis, transudate, due to chf. 2. Septic/cardiogenic shock. 3. Elevated liver chemistries. 4. [id number] congestive heart failure, systolic. 5. Renal insufficiency. 6. Protein malnutrition, present upon admission. echo The systolic function is mildly to moderately impaired. The Ejection Fraction is 40-45%. There is global hypokinesis of the left ventricle. Septal motion suggestive of conduction defect. Plan . FAMILY MEETING TODAY WILL CONTINUE SUPPORT D/W AT BEDSIDE ANTIBX PER SUMMER RAMÍREZ MD Feb 19, 2019 09:36
--- NOTE | 2019-02-19 09:38 | PDOC ---
Subjective: Subjective: Family present - says he has not c/o dysphagia or abd pain - says he's "not hungry." He does not want another feeding tube. Wonders if he can go home on TPN. Having trouble talking today. Objective: Vital Signs: Vital Signs Date Time Temp Pulse Resp B/P (MAP) Pulse Ox O2 Delivery O2 Flow Rate FiO2 02/19/19 07:00 97.0 83 18 98/56 (70) 96 Room Air 97.0 Labs: Laboratory Tests Test 02/18/19 21:01 02/19/19 05:35 02/19/19 07:27 Glucose (Fingerstick) 209 mg/dL 213 mg/dL Sodium Level 140 mmol/L Potassium Level 3.3 mmol/L Chloride Level 111 mmol/L Carbon Dioxide Level 20 mmol/L Anion Gap 9 Blood Urea Nitrogen 14 mg/dL Creatinine 1.5 mg/dL Estimated GFR (Cockcroft-Gault) 44.3 Glucose Level 244 mg/dL Calcium Level 7.1 mg/dL Phosphorus Level 2.7 mg/dL Magnesium Level 2.1 mg/dL PE: GEN: looks ill LUNGS: room air ABD: S/ND/NT NEURO/PSYCH: briefly awakens, attempts to speak A/P: Lactic acidosis, hypotension, pleural effusions, hypoalbuminemia Anorexia, dysphagia - on TPN, h/o esophageal dysmotility 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 Hold off on esophagram/UGI for now - await family meeting. RAS HARRIS Feb 19, 2019 09:38
--- NOTE | 2019-02-19 09:41 | PDOC ---
SUBJECTIVE ROS Transferred out of ICU, Refusing to eat, On TPN Same OBJECTIVE Vital Signs Vital Signs Date Time Temp Pulse Resp B/P (MAP) Pulse Ox O2 Delivery O2 Flow Rate FiO2 02/19/19 07:00 97.0 83 18 98/56 (70) 96 Room Air 97.0 I & 0 Intake and Output 02/19/19 06:59 Intake Total 1941 ml Output Total 590 ml Balance 1351 ml Intake Oral 70 ml IV Total 1871 ml Output Urine Total 590 ml PHYSICAL EXAM Physical Exam General: No acute distress,cachectic HEENT: OM dry , On O2 by NC Neck supple Lungs: CTA , decreased BS bases Heart: Regular rate , Normal S1, Normal S2, No murmurs Abdomen: Soft, No tenderness Extremities: 2-3 + EDEMA ( 2/2 severe hypoalbuminemia) Skin: No rash Neuro: grossly normal - Perrin + DIAGNOSIS/ASSESSMENT Assessment & Plan ADAM - Pre-renal 2/2 diarrhea, Poor PO intake Renal function improved - at his baseline CT - Cyst vs Hydronephrosis Rt kidney per Radiologist UA unremarkable except for hyaline casts Supportive care, Monitor, Avoid Nephrotoxins Hypokalemia- Replace as needed , adjust in TPN Hypocalcemia- mildly low correction for Albumin Adjust in TPN CKD stage 3 -Baseline Renal function per [facility] records 1.4-1.7, Pleural Effusion- Rt large S/P Thoracentesis 1.5 LTS 02/15 Anasarca - 2/2 Severe protein malnutrition / Severe HypoAlbuminemia On TPN now 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 Weakness/anorexia/cachexia- Palliative following Chronic anemia DM2 Hx of antrectomy w/ Kb-en-Y and PUD DW Daughter and at bedside COMMENT/RELEVANT DATA Meds Current Medications Medications (Trade) Dose Ordered Sig/Enrrique Start Time Stop Time Status Last Admin Dose Admin Acetaminophen (Tylenol) 500 mg PRN Q6HRS PRN 02/19/19 09:15 Albumin Human 250 ml @ 62.5 mls/hr 1X ONCE 02/17/19 14:30 02/17/19 18:29 DC 02/17/19 14:30 62.5 MLS/HR Amino Acids/ Glycerin/ Electrolytes 1,000 ml @ 100 mls/hr Q10H 02/17/19 11:00 02/18/19 09:00 DC 02/17/19 11:08 100 MLS/HR Aspirin (Children'S Aspirin) 81 mg DAILYWBKFT 02/15/19 08:00 02/15/19 09:29 DC 02/15/19 08:43 81 MG Aspirin (Ecotrin) 81 mg DAILYWBKFT 02/16/19 08:00 02/18/19 09:49 81 MG Ceftriaxone Sodium (Rocephin) 2 gm Q24H 02/18/19 09:00 02/19/19 09:03 2 GM Chlorhexidine Gluconate (Peridex) 15 ml BID 02/16/19 21:00 Cancel Citalopram Hydrobromide (CeleXA) 20 mg DAILY 02/15/19 09:00 02/18/19 09:49 20 MG Dopamine HCl/ Dextrose 250 ml @ 10.121 mls/ hr CONT PRN 02/14/19 20:00 02/19/19 09:05 DC 02/14/19 20:32 13 MLS/HR Enoxaparin Sodium (Lovenox 30mg Syringe) 30 mg Q24H 02/14/19 21:00 02/18/19 23:13 30 MG Enoxaparin Sodium (Lovenox 40mg Syringe) 40 mg Q12HR 02/16/19 21:00 UNV Famotidine (Pepcid Vial) 20 mg QHS 02/16/19 21:00 Cancel Fentanyl Citrate (Fentanyl 2ml Vial) 50 mcg PRN Q1HR PRN 02/16/19 17:30 Cancel Furosemide (Lasix) 20 mg 1X ONCE 02/15/19 10:15 02/15/19 10:16 DC 02/15/19 11:42 20 MG Info (Tpn Per Pharmacy) 1 each PRN DAILY PRN 02/17/19 10:45 02/18/19 13:57 1 EACH Lactobacillus Rhamnosus (Culturelle) 1 cap BID 02/15/19 21:00 02/18/19 23:11 1 CAP Levofloxacin/ Dextrose 150 ml @ 100 mls/hr 1X ONCE 02/14/19 16:45 02/14/19 18:14 DC 02/14/19 18:17 100 MLS/HR Linezolid/Dextrose 300 ml @ 300 mls/hr Q12HR 02/14/19 21:00 02/17/19 08:56 DC 02/17/19 08:36 300 MLS/HR Magnesium Sulfate 50 ml @ 25 mls/hr 1X ONCE 02/17/19 14:00 02/17/19 15:59 DC 02/17/19 14:41 25 MLS/HR Midazolam HCl 100 ml @ 5 mls/hr CONT PRN 02/16/19 17:30 Cancel Morphine Sulfate (Morphine Sulfate) 4 mg PRN Q1HR PRN 02/16/19 17:30 Cancel Norepinephrine Bitartrate 250 ml @ 12.97 mls/ hr CONT PRN 02/14/19 21:15 02/19/19 09:05 DC 02/16/19 23:40 12.97 MLS/HR Ondansetron HCl (Zofran) 4 mg PRN Q6HRS PRN 02/14/19 21:30 02/15/19 15:42 4 MG Pantoprazole Sodium (PROTONIX VIAL for IV PUSH) 40 mg BIDAC 02/15/19 16:30 02/18/19 09:42 DC 02/17/19 16:47 40 MG Pantoprazole Sodium (Protonix) 40 mg DAILYAC 02/19/19 07:30 Piperacillin Sod/ Tazobactam Sod 3.375 gm/Sodium Chloride 50 ml @ 100 mls/hr Q8HRS 02/14/19 22:00 02/18/19 08:16 DC 02/18/19 05:18 100 MLS/HR Potassium Chloride/Water 100 ml @ 100 mls/hr Q1H 02/15/19 12:00 02/15/19 15:59 DC 02/15/19 14:53 100 MLS/HR Potassium Phosphate 13.6 mmol/Dextrose 104.5333 ml @ 52.267 m... Q2H 02/17/19 14:00 02/17/19 17:59 DC 02/17/19 15:49 52.267 MLS/HR Propofol 100 ml @ 1.061 mls/ hr CONT PRN 02/16/19 17:30 Cancel Sodium Chloride 90 meq/Potassium Acetate 50 meq/ Potassium Phosphate 20 mmol/ Magnesium Sulfate 15 meq/Calcium Gluconate 10 meq/ Multivitamins 10 ml/Chromium/ Copper/Manganese/ Seleni/Zn 1 ml/ Total Parenteral Nutrition/Amino Acids/Dextrose/ Fat Emulsion Intravenous 1,512 ml @ 63 mls/hr TPN CONT 02/17/19 22:00 02/18/19 13:04 DC 02/17/19 22:02 63 MLS/HR Sodium Chloride 90 meq/Potassium Acetate 70 meq/ Potassium Phosphate 15 mmol/ Magnesium Sulfate 12 meq/Calcium Gluconate 13 meq/ Multivitamins 10 ml/Chromium/ Copper/Manganese/ Seleni/Zn 1 ml/ Total Parenteral Nutrition/Amino Acids/Dextrose/ Fat Emulsion Intravenous 1,512 ml @ 63 mls/hr TPN CONT 02/18/19 22:00 02/19/19 21:59 02/18/19 23:13 63 MLS/HR Sucralfate (Carafate) 1 gm BIDAC 02/18/19 16:30 Vancomycin HCl 250 ml @ 250 mls/hr 1X ONCE 02/14/19 17:00 02/14/19 17:59 DC 02/14/19 17:36 250 MLS/HR Lab Laboratory Tests Test 02/18/19 21:01 02/19/19 05:35 02/19/19 07:27 Glucose (Fingerstick) 209 mg/dL (70-99) 213 mg/dL (70-99) Sodium Level 140 mmol/L (136-145) Potassium Level 3.3 mmol/L (3.5-5.1) Chloride Level 111 mmol/L (98-107) Carbon Dioxide Level 20 mmol/L (21-32) Anion Gap 9 (6-14) Blood Urea Nitrogen 14 mg/dL (8-26) Creatinine 1.5 mg/dL (0.7-1.3) Estimated GFR (Cockcroft-Gault) 44.3 Glucose Level 244 mg/dL (70-99) Calcium Level 7.1 mg/dL (8.5-10.1) Phosphorus Level 2.7 mg/dL (2.6-4.7) Magnesium Level 2.1 mg/dL (1.8-2.4) Results All relevant outside records, renal labs, imaging studies, telemetry/EKG's were reviewed. DARA ROGERS MD Feb 19, 2019 09:41
--- NOTE | 2019-02-19 10:37 | NUR ---
Gave pt 2 bites of pudding, had difficult time swallowing. Meds non-admin'd.
[2019-02-19 11:00] VITALS: BP_SYST 111; BP_SYST 138; BP_DIAS 58; BP_DIAS 78
--- NOTE | 2019-02-19 11:27 | NUR ---
SW following for discharge planning, pt is a transfer from ICU. Pt is from home with spouse, had home health services. Referral had been sent to [facility] (however fax was not received). Palliative care meeting scheduled for today. SW will continue to follow for discharge planning.
--- NOTE | 2019-02-19 12:45 | PDOC ---
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 History of Present Illness History of Present Illness Transferred out of icu Lots of co morbids/medical probs - i have reviewed chart CArds has consulted palliative which is VERY appropriate Meeting later 3 PM at bedside Pt minimally verbal to me, TPN, poor ambulation Was walking without assistive device RN NIGHT Informative palliative note i have reviewed PLAN: COnt tpn, dnr supportive meds FAm meet 3 pm Vitals Vitals Vital Signs Date Time Temp Pulse Resp B/P (MAP) Pulse Ox O2 Delivery O2 Flow Rate FiO2 02/19/19 11:00 97.5 85 20 111/58 (75) 95 Room Air 97.5 Physical Exam Physical Exam GENERAL: Alert, oriented gentleman, not in any distress. HEENT: Both pupils are round and reacting. No conjunctival lesion, no lesion in the mouth. NECK: Supple, RT IJ looks ok LUNGS: Decreased breath sounds. HEART: S1, S2 regular. No gallop or murmur. ABDOMEN: Soft, nontender, mildly distended EXTREMITIES: edema + NEUROLOGIC: Other than poor hearing, the patient does move all the extremities. There is no other focal deficit. General: Cooperative, No acute distress Heart: Regular rate (SR), Normal S1, Normal S2, No murmurs Lungs: Crackles, Other Abdomen: Soft, No tenderness Extremities: No cyanosis, Other (anasarca) Skin: No breakdown, No significant lesion, Other (pale) Labs LABS Laboratory Tests Test 02/18/19 21:01 02/19/19 05:35 02/19/19 07:27 02/19/19 11:25 Glucose (Fingerstick) 209 mg/dL (70-99) 213 mg/dL (70-99) 254 mg/dL (70-99) Sodium Level 140 mmol/L (136-145) Potassium Level 3.3 mmol/L (3.5-5.1) Chloride Level 111 mmol/L (98-107) Carbon Dioxide Level 20 mmol/L (21-32) Anion Gap 9 (6-14) Blood Urea Nitrogen 14 mg/dL (8-26) Creatinine 1.5 mg/dL (0.7-1.3) Estimated GFR (Cockcroft-Gault) 44.3 Glucose Level 244 mg/dL (70-99) Calcium Level 7.1 mg/dL (8.5-10.1) Phosphorus Level 2.7 mg/dL (2.6-4.7) Magnesium Level 2.1 mg/dL (1.8-2.4) Review of Systems Review of Systems minimally verbal/cooperative/ very weak Assessment and Plan Assessmemt and Plan Problems Medical Problems: (1) Anemia Status: Acute (2) CHF (congestive heart failure) Status: Acute (3) Diarrhea Status: Acute (4) Elevated liver function tests Status: Acute (5) Hypoalbuminemia Status: Acute (6) Hypocalcemia Status: Acute (7) Pleural effusion Status: Acute (8) Renal insufficiency Status: Acute (9) Severe sepsis Status: Acute (10) Tachycardia Status: Acute Comment Review of Relevant I have reviewed the following items sukhwinder (where applicable) has been applied. Labs Laboratory Tests Test 02/18/19 05:40 02/18/19 21:01 02/19/19 05:35 02/19/19 07:27 White Blood Count 2.7 x10^3/uL (4.0-11.0) Red Blood Count 2.74 x10^6/uL (4.30-5.70) Hemoglobin 8.3 g/dL (13.0-17.5) Hematocrit 25.4 % (39.0-53.0) Mean Corpuscular Volume 93 fL (79-100) Mean Corpuscular Hemoglobin 30 pg (25-35) Mean Corpuscular Hemoglobin Concent 33 g/dL (31-37) Red Cell Distribution Width 15.4 % (11.5-14.5) Platelet Count 80 x10^3/uL (140-400) Sodium Level 139 mmol/L (136-145) 140 mmol/L (136-145) Potassium Level 3.4 mmol/L (3.5-5.1) 3.3 mmol/L (3.5-5.1) Chloride Level 109 mmol/L (98-107) 111 mmol/L (98-107) Carbon Dioxide Level 21 mmol/L (21-32) 20 mmol/L (21-32) Anion Gap 9 (6-14) 9 (6-14) Blood Urea Nitrogen 14 mg/dL (8-26) 14 mg/dL (8-26) Creatinine 1.6 mg/dL (0.7-1.3) 1.5 mg/dL (0.7-1.3) Estimated GFR (Cockcroft-Gault) 41.1 44.3 Glucose Level 208 mg/dL (70-99) 244 mg/dL (70-99) Calcium Level 6.6 mg/dL (8.5-10.1) 7.1 mg/dL (8.5-10.1) Phosphorus Level 3.1 mg/dL (2.6-4.7) 2.7 mg/dL (2.6-4.7) Magnesium Level 2.0 mg/dL (1.8-2.4) 2.1 mg/dL (1.8-2.4) Glucose (Fingerstick) 209 mg/dL (70-99) 213 mg/dL (70-99) Test 02/19/19 11:25 Glucose (Fingerstick) 254 mg/dL (70-99) Laboratory Tests Test 02/18/19 21:01 02/19/19 05:35 02/19/19 07:27 02/19/19 11:25 Glucose (Fingerstick) 209 mg/dL (70-99) 213 mg/dL (70-99) 254 mg/dL (70-99) Sodium Level 140 mmol/L (136-145) Potassium Level 3.3 mmol/L (3.5-5.1) Chloride Level 111 mmol/L (98-107) Carbon Dioxide Level 20 mmol/L (21-32) Anion Gap 9 (6-14) Blood Urea Nitrogen 14 mg/dL (8-26) Creatinine 1.5 mg/dL (0.7-1.3) Estimated GFR (Cockcroft-Gault) 44.3 Glucose Level 244 mg/dL (70-99) Calcium Level 7.1 mg/dL (8.5-10.1) Phosphorus Level 2.7 mg/dL (2.6-4.7) Magnesium Level 2.1 mg/dL (1.8-2.4) Microbiology 02/14/19 Blood Culture - Preliminary, Resulted NO GROWTH AFTER 4 DAYS Medications Current Medications Sodium Chloride 1,000 ml @ 1,000 mls/hr Q1H IV Last administered on 02/14/19at 15:55; Start 02/14/19 at 15:34; Stop 02/14/19 at 16:33; Status DC Ondansetron HCl (Zofran) 4 mg 1X ONCE IV Last administered on 02/14/19at 16:09; Start 02/14/19 at 16:30; Stop 02/14/19 at 16:31; Status DC Sodium Chloride 1,000 ml @ 1,000 mls/hr 1X ONCE IV Last administered on 02/14/19at 17:27; Start 02/14/19 at 16:45; Stop 02/14/19 at 17:44; Status DC Piperacillin Sod/ Tazobactam Sod 3.375 gm/Sodium Chloride 50 ml @ 100 mls/hr 1X ONCE IV Last administered on 02/14/19at 17:27; Start 02/14/19 at 18:00; Stop 02/14/19 at 18:29; Status DC Vancomycin HCl 250 ml @ 250 mls/hr 1X ONCE IV Last administered on 02/14/19at 17:36; Start 02/14/19 at 17:00; Stop 02/14/19 at 17:59; Status DC Levofloxacin/ Dextrose 150 ml @ 100 mls/hr 1X ONCE IV Last administered on 02/14/19at 18:17; Start 02/14/19 at 16:45; Stop 02/14/19 at 18:14; Status DC Sodium Chloride 1,000 ml @ 150 mls/hr Q6H40M IV ; Start 02/14/19 at 17:05; Stop 02/14/19 at 21:10; Status DC Dopamine HCl/ Dextrose 250 ml @ 10.121 mls/ hr CONT PRN IV SEE I/O RECORD Last administered on 02/14/19at 20:32; Start 02/14/19 at 20:00; Stop 02/19/19 at 09:05; Status DC Piperacillin Sod/ Tazobactam Sod 3.375 gm/Sodium Chloride 50 ml @ 100 mls/hr Q8HRS IV Last administered on 02/18/19at 05:18; Start 02/14/19 at 22:00; Stop 02/18/19 at 08:16; Status DC Linezolid/Dextrose 300 ml @ 300 mls/hr Q12HR IV Last administered on 02/17/19at 08:36; Start 02/14/19 at 21:00; Stop 02/17/19 at 08:56; Status DC Enoxaparin Sodium (Lovenox 30mg Syringe) 30 mg Q24H SQ Last administered on 02/18/19at 23:13; Start 02/14/19 at 21:00 Sodium Chloride 1,000 ml @ 75 mls/hr [id number] IV Last administered on 02/17/19at 10:16; Start 02/15/19 at 18:00; Stop 02/17/19 at 18:17; Status DC Pantoprazole Sodium (Protonix) 40 mg BIDAC PO Last administered on 02/15/19 08:43; Start 02/15/19 at 07:30; Stop 02/15/19 at 13:49; Status DC Aspirin (Children'S Aspirin) 81 mg DAILYWBKFT PO Last administered on 02/15/19at 08:43; Start 02/15/19 at 08:00; Stop 02/15/19 at 09:29; Status DC Citalopram Hydrobromide (CeleXA) 20 mg DAILY PO Last administered on 02/18/19at 09:49; Start 02/15/19 at 09:00 Norepinephrine Bitartrate 250 ml @ 12.97 mls/ hr CONT PRN IV SEE I/O RECORD Last administered on 02/16/19at 23:40; Start 02/14/19 at 21:15; Stop 02/19/19 at 09:05; Status DC Sodium Chloride 500 ml @ 500 mls/hr 1X ONCE IV Last administered on 02/14/19at 21:40; Start 02/14/19 at 21:15; Stop 02/14/19 at 22:14; Status DC Ondansetron HCl (Zofran) 4 mg PRN Q6HRS PRN IVP NAUSEA/VOMITING Last administered on 02/15/19at 15:42; Start 02/14/19 at 21:30 Albumin Human 100 ml @ 100 mls/hr 1X ONCE IV Last administered on 02/15/19at 10:37; Start 02/15/19 at 09:15; Stop 02/15/19 at 10:14; Status DC Furosemide (Lasix) 20 mg 1X ONCE IVP Last administered on 02/15/19at 11:42; Start 02/15/19 at 10:15; Stop 02/15/19 at 10:16; Status DC Aspirin (Ecotrin) 81 mg DAILYWBKFT PO Last administered on 02/18/19at 09:49; Start 02/16/19 at 08:00 Potassium Chloride/Water 100 ml @ 100 mls/hr Q1H IV Last administered on 02/15/19at 14:53; Start 02/15/19 at 12:00; Stop 02/15/19 at 15:59; Status DC Lactobacillus Rhamnosus (Culturelle) 1 cap BID PO Last administered on at 23:11; Start 02/15/19 at 21:00 Pantoprazole Sodium (PROTONIX VIAL for IV PUSH) 40 mg BIDAC IVP Last administered on 02/17/19at 16:47; Start 02/15/19 at 16:30; Stop 02/18/19 at 09:42; Status DC Fentanyl Citrate 30 ml @ 0 mls/hr CONT PRN IV SEE PROTOCOL; Start 02/16/19 at 17:30; Status Cancel Fentanyl Citrate (Fentanyl 2ml Vial) 25 mcg PRN Q1HR PRN IV SEE COMMENTS; Start 02/16/19 at 17:30; Status Cancel Fentanyl Citrate (Fentanyl 2ml Vial) 50 mcg PRN Q1HR PRN IV SEE COMMENTS; Start 02/16/19 at 17:30; Status Cancel Chlorhexidine Gluconate (Peridex) 15 ml BID MM ; Start 02/16/19 at 21:00; Status Cancel Famotidine (Pepcid Vial) 20 mg QHS IVP ; Start 02/16/19 at 21:00; Status Cancel Morphine Sulfate (Morphine Sulfate) 2 mg PRN Q1HR PRN IV SEE COMMENTS.; Start 02/16/19 at 17:30; Status Cancel Morphine Sulfate (Morphine Sulfate) 4 mg PRN Q1HR PRN IV SEE COMMENTS.; Start 02/16/19 at 17:30; Status Cancel Enoxaparin Sodium (Lovenox 40mg Syringe) 40 mg Q12HR SQ ; Start 02/16/19 at 21:00; Status UNV Midazolam HCl 100 ml @ 5 mls/hr CONT PRN IV SEE I/O RECORD; Start 02/16/19 at 17:30; Status Cancel Propofol 100 ml @ 1.061 mls/ hr CONT PRN IV SEE I/O RECORD; Start 02/16/19 at 17:30; Status Cancel Info (Tpn Per Pharmacy) 1 each PRN DAILY PRN MC SEE COMMENTS Last administered on 02/18/19at 13:57; Start 02/17/19 at 10:45 Amino Acids/ Glycerin/ Electrolytes 1,000 ml @ 100 mls/hr Q10H IV Last administered on 02/17/19at 11:08; Start 02/17/19 at 11:00; Stop 02/18/19 at 09:00; Status DC Potassium Phosphate 13.6 mmol/Dextrose 104.5333 ml @ 52.267 m... Q2H IV Last administered on 02/17/19at 15:49; Start 02/17/19 at 14:00; Stop 02/17/19 at 17:59; Status DC Magnesium Sulfate 50 ml @ 25 mls/hr 1X ONCE IV Last administered on 02/17/19at 14:41; Start 02/17/19 at 14:00; Stop 02/17/19 at 15:59; Status DC Sodium Chloride 90 meq/Potassium Acetate 50 meq/ Potassium Phosphate 20 mmol/ Magnesium Sulfate 15 meq/Calcium Gluconate 10 meq/ Multivitamins 10 ml/Chromium/ Copper/Manganese/ Seleni/Zn 1 ml/ Total Parenteral Nutrition/Amino Acids/Dextrose/ Fat Emulsion Intravenous 1,512 ml @ 63 mls/hr TPN CONT IV Last administered on 02/17/19at 22:02; Start 02/17/19 at 22:00; Stop 02/18/19 at 13:04; Status DC Albumin Human 250 ml @ 62.5 mls/hr 1X ONCE IV Last administered on 02/17/19at 14:30; Start 02/17/19 at 14:30; Stop 02/17/19 at 18:29; Status DC Sodium Chloride 1,000 ml @ 100 mls/hr Q10H IV Last administered on 02/19/19at 09:09; Start 02/17/19 at 18:15 Ceftriaxone Sodium (Rocephin) 2 gm Q24H IVP Last administered on 02/19/19at 09:03; Start 02/18/19 at 09:00 Pantoprazole Sodium (Protonix) 40 mg DAILYAC PO ; Start 02/19/19 at 07:30 Sucralfate (Carafate) 1 gm BIDAC PO ; Start 02/18/19 at 16:30 Sodium Chloride 90 meq/Potassium Acetate 70 meq/ Potassium Phosphate 15 mmol/ Magnesium Sulfate 12 meq/Calcium Gluconate 13 meq/ Multivitamins 10 ml/Chromium/ Copper/Manganese/ Seleni/Zn 1 ml/ Total Parenteral Nutrition/Amino Acids/Dextrose/ Fat Emulsion Intravenous 1,512 ml @ 63 mls/hr TPN CONT IV ; Start 02/18/19 at 22:00; Stop 02/18/19 at 13:55; Status DC Sodium Chloride 90 meq/Potassium Acetate 70 meq/ Potassium Phosphate 15 mmol/ Magnesium Sulfate 12 meq/Calcium Gluconate 13 meq/ Multivitamins 10 ml/Chromium/ Copper/Manganese/ Seleni/Zn 1 ml/ Total Parenteral Nutrition/Amino Acids/Dextrose/ Fat Emulsion Intravenous 1,512 ml @ 63 mls/hr TPN CONT IV Last administered on 02/18/19at 23:13; Start 02/18/19 at 22:00; Stop 02/19/19 at 21:59 Acetaminophen (Tylenol) 500 mg PRN Q6HRS PRN PO MILD PAIN / TEMP; Start 02/19/19 at 09:15 Metronidazole 100 ml @ 100 mls/hr Q12HR IV ; Start 02/19/19 at 21:00 Active Scripts Active Aspirin Ec (Aspirin) 81 Mg Tablet. 81 Mg PO DAILYWBKFT 30 Days Reported Protonix (Pantoprazole Sodium) 20 Mg Tablet. 40 Mg PO BID Escitalopram Oxalate 10 Mg Tablet 10 Mg PO DAILY Vitals/I & O Vital Sign - Last 24 Hours 02/18/19 02/18/19 02/18/19 02/18/19 13:00 14:00 15:00 15:53 Pulse 64 68 72 64 Resp 12 12 12 12 B/P (MAP) 110/68 (82) 114/64 (81) 103/59 (74) 110/68 (82) Pulse Ox 92 92 92 92 O2 Delivery Room Air Room Air Room Air Room Air 02/18/19 02/18/19 02/18/19 02/18/19 16:00 16:00 19:00 20:00 Temp 98.6 97.5 98.6 97.5 Pulse 76 77 Resp 12 14 B/P (MAP) 108/65 (79) 109/67 (81) Pulse Ox 92 99 O2 Delivery Room Air Room Air Room Air Room Air 02/18/19 02/18/19 02/19/19 02/19/19 22:51 23:00 03:00 07:00 Temp 97.5 97.5 98.1 97.0 97.5 97.5 98.1 97.0 Pulse 75 75 72 83 Resp 14 14 18 18 B/P (MAP) 108/61 (77) 108/61 (77) 118/65 (82) 98/56 (70) Pulse Ox 94 94 99 96 O2 Delivery Room Air Room Air Room Air Room Air 02/19/19 11:00 Temp 97.5 97.5 Pulse 85 Resp 20 B/P (MAP) 111/58 (75) Pulse Ox 95 O2 Delivery Room Air Intake and Output 02/18/19 02/18/19 02/19/19 15:00 23:00 07:00 Intake Total 1871 ml 70 ml Output Total 120 ml 140 ml 300 ml Balance -120 ml 1731 ml -230 ml Nutrition Consultation Dietary Evaluation: Recommendations by RD: Increase Calorie Intake, PPN/TPN Comments: REC TPN per followin g dextrose, 60 g AA, 20 g lipids REC continue w/dysphagia I/thin liquid diet 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
[2019-02-19] MEDS: TPN PER PHARMACY MC PRN (13:31)
--- NOTE | 2019-02-19 13:36 | NUR ---
Pharmacy TPN Dosing Note S: CLAUDIO IBANEZ is a 88 year old M Currently receiving Central Continuous TPN started 02/17/19 B:Pertinent PMH: NPO/MALNOURISHED Height: 5 feet, 6 inches Weight: 73.193756 kg Current diet: NPO LABS: Sodium: 140 Potassium: 3.3 Chloride: 111 Calcium: 7.1 Corrected Calcium: 9.26 Magnesium: 2.1 CO2: 20 SCr: 1.5 Glucose: 254 Albumin: 1.3 AST: 69 ALT: 28 TPN FORMULA: TPN TYPE: Central Continuous AMINO ACIDS: 60 gm DEXTROSE: 225 gm LIPIDS: 20 gm SODIUM CHLORIDE: 90 mEq POTASSIUM ACETATE: 90 mEq POTASSIUM PHOSPHATE: 15 mmol MAGNESIUM: 12 mEq CALCIUM: 13 mEq MULTIPLE VITAMIN: 10 ml TRACE ELEMENTS: 1 ml(s) TPN PLAN: -increase kacetate to 90 meq. -Labs in the am R: Change TPN as outlined above. Will monitor electrolytes, glucose, and tolerance to TPN. Taurus Stephenson, [facility], 02/19/19 [id number]
[2019-02-19 15:00] VITALS: BP 113/64
--- NOTE | 2019-02-19 16:07 | PDOC2 ---
PALLIATIVE CARE Palliative Care Note Palliative Care Patient resting. Met with Lizeth; daughters Valentina and Eryn; sons Grupo, Armando, Josué unable to attend but are aware of illness. Reviewed medical condition; Sepsis--resolved, A/RF improved. malnutrition, Chronic anemia, Thoracentesis 1.5L; EF 30%; refusing feeding tube, dysphagia chronic--now more acute; more weak today Family shared a significant decline in last 2 weeks. In October patient was walking, up visiting at family reunion, eating; Per family patient did not want to come to hospital, refused feeding tube, has refused AICD in past. Discussed options for care. Continue current treatment plan vs going to SNU to try to get stronger vs comfort care. Family requests comfort care. Discussed Hospice support. Will stop medications not benefiting for comfort; no TPN; follow speech recom mendation for diet. No preference in Hospice Agency. Family understands comfort will be goal, bringing enough care to the home so that he can peacefully with dignity at home. Social; worked at [employer], [employer]; [employer]; [employer] very important part of his life. Reads the Bible daily. Confirmed DNR/DNI; Outside the Hospital DNR/DNI form signed. DME: Bed with rails. Continue Perrin catheter Spoke with Deann DUPREE who will assist with discharge plans. Plan: Home with hospice when discharged. DNR/DNI. ENEIDA TRIPP Feb 19, 2019 16:07
[2019-02-19 19:00] VITALS: BP 129/64
[2019-02-19] MEDS ORDERED: [UNRECOGNIZED DRUG - OTHER] IV SCH ×10 (22:00)
[2019-02-19] MEDS ORDERED: AMINO ACID IV SCH ×10 (22:00)
[2019-02-19] MEDS ORDERED: DEXTROSE 70% IV SCH ×10 (22:00)
[2019-02-19] MEDS ORDERED: TOTAL PARENTERAL NUTRITION IV SCH ×10 (22:00)
[2019-02-19 23:00] VITALS: BP_SYST 125
[2019-02-20 03:00] VITALS: BP 127/69
[2019-02-20 05:06] LABS: CALCIUM 7.5 mg/dL (8.5-10.1); CREATININE 1.3 mg/dL (0.7-1.3); GFR 52.2; MAGNESIUM 2.1 mg/dL (1.8-2.4); PHOSPHORUS 2.2 mg/dL (2.6-4.7); POTASSIUM 3.5 mmol/L (3.5-5.1)
[2019-02-20 07:00] VITALS: BP 131/61
[2019-02-20] MEDS ORDERED: LORazepam INTENSOL 2 MG/ML ORAL.CONC SL PRN (07:30)
[2019-02-20] MEDS ORDERED: MORPHINE SULFATE 20 MG/ML CONC SOLUTION. SL PRN (07:30)
--- NOTE | 2019-02-20 07:30 | SNU/HH DC ---
DISCHARGE ORDERS DISCHARGE INFORMATION: DISCHARGE DATE: Feb 20, 2019 FINAL DIAGNOSIS Problems Medical Problems: (1) Anemia Status: Acute (2) CHF (congestive heart failure) Status: Acute (3) Diarrhea Status: Acute (4) Elevated liver function tests Status: Acute (5) Hypoalbuminemia Status: Acute (6) Hypocalcemia Status: Acute (7) Pleural effusion Status: Acute (8) Renal insufficiency Status: Acute (9) Severe sepsis Status: Acute (10) Tachycardia Status: Acute CONDITION ON DISCHARGE: Guarded CODE STATUS: Code Status: DNR/DNI SNF: SNF STAY <30 DAYS: No HOSPICE: HOSPICE: Yes HOSPICE EVAL & TREAT: Yes LTAC: ADMIT TO LTAC: No POST DISCHARGE ORDERS: ACTIVITY ORDERS: Activity as tolerated WEIGHT BEARING STATUS: No restrictions DIET AFTER DISCHARGE: pleasure feeds FOLLOW-UP: PHYSICIAN FOLLOW-UP: on hospice, keep cat TREATMENT/EQUIPMENT ORDERS: ADAPTIVE EQUIPMENT NEEDED: Walker DISCHARGE MEDICATIONS: Home Meds Discontinued Reported Medications Pantoprazole Sodium (PROTONIX) 20 Mg Tablet.dr, 40 MG PO BID, TAB 06/29/17 Escitalopram Oxalate (Escitalopram Oxalate) 10 Mg Tablet, 10 MG PO DAILY 03/30/17 Discontinued Scripts Aspirin (ASPIRIN EC) 81 Mg Tablet.dr, 81 MG PO DAILYWBKFT for 30 Days, #30 TAB.SR Prov:SIXTO HUANG MD 10/06/17 FILIPPO PERALTA MD Feb 20, 2019 07:30
--- NOTE | 2019-02-20 09:09 | NUR ---
SW following pt. SW spoke with pt's family at bedside, no preference for hospice agency. Pt has used [facility] before and family is okay with using [facility]. LEIA phoned and faxed referral to [facility], phone: [phone], fax: [phone]. Vignesh from [facility] will meet with family around 1030 today. LEIA discussed DME requested by family. Acceptance and admission pending. Will continue to follow. Discussed with RN and Physician.
--- NOTE | 2019-02-20 09:12 | PDOC3 ---
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 Final Diagnosis Problems Medical Problems: (1) Anemia Status: Acute (2) CHF (congestive heart failure) Status: Acute (3) Diarrhea Status: Acute (4) Elevated liver function tests Status: Acute (5) Hypoalbuminemia Status: Acute (6) Hypocalcemia Status: Acute (7) Pleural effusion Status: Acute (8) Renal insufficiency Status: Acute (9) Severe sepsis Status: Acute (10) Tachycardia Status: Acute Brief Hospital Course Allergies Allergies Coded Allergies Type Severity Reaction Last Updated Verified No Known Drug Allergies 06/29/17 No Vital Signs Vital Signs Date Time Temp Pulse Resp B/P (MAP) Pulse Ox O2 Delivery O2 Flow Rate FiO2 02/20/19 07:00 97.6 76 16 131/61 (84) 93 Room Air 97.6 Lab Results Laboratory Tests Test 02/18/19 21:01 02/19/19 05:35 02/19/19 07:27 02/19/19 11:25 Glucose (Fingerstick) 209 mg/dL (70-99) 213 mg/dL (70-99) 254 mg/dL (70-99) Sodium Level 140 mmol/L (136-145) Potassium Level 3.3 mmol/L (3.5-5.1) Chloride Level 111 mmol/L (98-107) Carbon Dioxide Level 20 mmol/L (21-32) Anion Gap 9 (6-14) Blood Urea Nitrogen 14 mg/dL (8-26) Creatinine 1.5 mg/dL (0.7-1.3) Estimated GFR (Cockcroft-Gault) 44.3 Glucose Level 244 mg/dL (70-99) Calcium Level 7.1 mg/dL (8.5-10.1) Phosphorus Level 2.7 mg/dL (2.6-4.7) Magnesium Level 2.1 mg/dL (1.8-2.4) Test 02/19/19 17:07 02/20/19 04:10 Glucose (Fingerstick) 247 mg/dL (70-99) Sodium Level 143 mmol/L (136-145) Potassium Level 3.5 mmol/L (3.5-5.1) Chloride Level 114 mmol/L (98-107) Carbon Dioxide Level 21 mmol/L (21-32) Anion Gap 8 (6-14) Blood Urea Nitrogen 15 mg/dL (8-26) Creatinine 1.3 mg/dL (0.7-1.3) Estimated GFR (Cockcroft-Gault) 52.2 Glucose Level 280 mg/dL (70-99) Calcium Level 7.5 mg/dL (8.5-10.1) Phosphorus Level 2.2 mg/dL (2.6-4.7) Magnesium Level 2.1 mg/dL (1.8-2.4) Laboratory Tests Test 02/19/19 11:25 02/19/19 17:07 02/20/19 04:10 Glucose (Fingerstick) 254 mg/dL (70-99) 247 mg/dL (70-99) Sodium Level 143 mmol/L (136-145) Potassium Level 3.5 mmol/L (3.5-5.1) Chloride Level 114 mmol/L (98-107) Carbon Dioxide Level 21 mmol/L (21-32) Anion Gap 8 (6-14) Blood Urea Nitrogen 15 mg/dL (8-26) Creatinine 1.3 mg/dL (0.7-1.3) Estimated GFR (Cockcroft-Gault) 52.2 Glucose Level 280 mg/dL (70-99) Calcium Level 7.5 mg/dL (8.5-10.1) Phosphorus Level 2.2 mg/dL (2.6-4.7) Magnesium Level 2.1 mg/dL (1.8-2.4) Brief Hospital Course Mr. Pittman is a 88 old white male who came in for the above (pls refer to H and P by colleague) LOts of co morbidities, see above dx - CArds recommended palliative bec NOt better, PAlliative got involved, family decided hospice home, getting tPN, poor po, dysphagia, minimally verbal pale, bed bound, Hospice appropriate, OUTside DNR I have signed, HOme hospice today pt seen and examined dw family at bedside I initiated hospice packet, KEep cat on dc, dc PICC line dc < 30 Discharge Information Condition at Discharge: Comment (hospice) Disposition/Orders: D/C to Home w/ Hospice No Active Prescriptions or Reported Meds FILIPPO PERALTA MD Feb 20, 2019 09:12
--- NOTE | 2019-02-20 09:52 | PDOC ---
Infectious Disease Note Subjective: Subjective ROS: ROS unable to obtain Vital Signs: Vital Signs Vital Signs Date Time Temp Pulse Resp B/P (MAP) Pulse Ox O2 Delivery O2 Flow Rate FiO2 02/20/19 07:00 97.6 76 16 131/61 (84) 93 Room Air 97.6 Physical Exam: PHYSICAL EXAM GENERAL: sleeping comfortably HEENT: no icterus NECK: Supple LUNGS: Decreased breath sounds. HEART: S1, S2 ABDOMEN: Soft, nontender, EXTREMITIES: edema + NEURO sleeping Medications: Inpatient Meds: Current Medications Medications (Trade) Dose Ordered Sig/Enrrique Start Time Stop Time Status Last Admin Dose Admin Acetaminophen (Tylenol) 500 mg PRN Q6HRS PRN 02/19/19 09:15 02/19/19 17:14 DC Albumin Human 250 ml @ 62.5 mls/hr 1X ONCE 02/17/19 14:30 02/17/19 18:29 DC 02/17/19 14:30 62.5 MLS/HR Amino Acids/ Glycerin/ Electrolytes 1,000 ml @ 100 mls/hr Q10H 02/17/19 11:00 02/18/19 09:00 DC 02/17/19 11:08 100 MLS/HR Aspirin (Children'S Aspirin) 81 mg DAILYWBKFT 02/15/19 08:00 02/15/19 09:29 DC 02/15/19 08:43 81 MG Aspirin (Ecotrin) 81 mg DAILYWBKFT 02/16/19 08:00 02/19/19 17:14 DC 02/18/19 09:49 81 MG Ceftriaxone Sodium (Rocephin) 2 gm Q24H 02/18/19 09:00 02/20/19 07:31 DC 02/19/19 09:03 2 GM Chlorhexidine Gluconate (Peridex) 15 ml BID 02/16/19 21:00 Cancel Citalopram Hydrobromide (CeleXA) 20 mg DAILY 02/15/19 09:00 02/19/19 17:14 DC 02/18/19 09:49 20 MG Dopamine HCl/ Dextrose 250 ml @ 10.121 mls/ hr CONT PRN 02/14/19 20:00 02/19/19 09:05 DC 02/14/19 20:32 13 MLS/HR Enoxaparin Sodium (Lovenox 30mg Syringe) 30 mg Q24H 02/14/19 21:00 02/19/19 17:14 DC 02/18/19 23:13 30 MG Enoxaparin Sodium (Lovenox 40mg Syringe) 40 mg Q12HR 02/16/19 21:00 UNV Famotidine (Pepcid Vial) 20 mg QHS 02/16/19 21:00 Cancel Fentanyl Citrate (Fentanyl 2ml Vial) 50 mcg PRN Q1HR PRN 02/16/19 17:30 Cancel Furosemide (Lasix) 20 mg 1X ONCE 02/15/19 10:15 02/15/19 10:16 DC 02/15/19 11:42 20 MG Info (Tpn Per Pharmacy) 1 each PRN DAILY PRN 02/17/19 10:45 02/19/19 17:14 DC 02/19/19 13:31 1 EACH Lactobacillus Rhamnosus (Culturelle) 1 cap BID 02/15/19 21:00 02/19/19 17:14 DC 02/18/19 23:11 1 CAP Levofloxacin/ Dextrose 150 ml @ 100 mls/hr 1X ONCE 02/14/19 16:45 02/14/19 18:14 DC 02/14/19 18:17 100 MLS/HR Linezolid/Dextrose 300 ml @ 300 mls/hr Q12HR 02/14/19 21:00 02/17/19 08:56 DC 02/17/19 08:36 300 MLS/HR Lorazepam (Ativan Intensol) 2 mg PRN Q6HRS PRN 02/20/19 07:30 Magnesium Sulfate 50 ml @ 25 mls/hr 1X ONCE 02/17/19 14:00 02/17/19 15:59 DC 02/17/19 14:41 25 MLS/HR Metronidazole 100 ml @ 100 mls/hr Q12HR 02/19/19 21:00 02/20/19 07:31 DC 02/19/19 22:22 100 MLS/HR Midazolam HCl 100 ml @ 5 mls/hr CONT PRN 02/16/19 17:30 Cancel Morphine Sulfate (Morphine Sulfate) 4 mg PRN Q1HR PRN 02/16/19 17:30 Cancel Morphine Sulfate (Roxanol Conc) 20 mg PRN Q3HRS PRN 02/20/19 07:30 Norepinephrine Bitartrate 250 ml @ 12.97 mls/ hr CONT PRN 02/14/19 21:15 02/19/19 09:05 DC 02/16/19 23:40 12.97 MLS/HR Ondansetron HCl (Zofran) 4 mg PRN Q6HRS PRN 02/14/19 21:30 02/19/19 17:14 DC 02/15/19 15:42 4 MG Pantoprazole Sodium (PROTONIX VIAL for IV PUSH) 40 mg BIDAC 02/15/19 16:30 02/18/19 09:42 DC 02/17/19 16:47 40 MG Pantoprazole Sodium (Protonix) 40 mg DAILYAC 02/19/19 07:30 02/19/19 17:14 DC Piperacillin Sod/ Tazobactam Sod 3.375 gm/Sodium Chloride 50 ml @ 100 mls/hr Q8HRS 02/14/19 22:00 02/18/19 08:16 DC 02/18/19 05:18 100 MLS/HR Potassium Chloride/Water 100 ml @ 100 mls/hr Q1H 02/15/19 12:00 02/15/19 15:59 DC 02/15/19 14:53 100 MLS/HR Potassium Phosphate 13.6 mmol/Dextrose 104.5333 ml @ 52.267 m... Q2H 02/17/19 14:00 02/17/19 17:59 DC 02/17/19 15:49 52.267 MLS/HR Propofol 100 ml @ 1.061 mls/ hr CONT PRN 02/16/19 17:30 Cancel Sodium Chloride 90 meq/Potassium Acetate 50 meq/ Potassium Phosphate 20 mmol/ Magnesium Sulfate 15 meq/Calcium Gluconate 10 meq/ Multivitamins 10 ml/Chromium/ Copper/Manganese/ Seleni/Zn 1 ml/ Total Parenteral Nutrition/Amino Acids/Dextrose/ Fat Emulsion Intravenous 1,512 ml @ 63 mls/hr TPN CONT 02/17/19 22:00 02/18/19 13:04 DC 02/17/19 22:02 63 MLS/HR Sodium Chloride 90 meq/Potassium Acetate 70 meq/ Potassium Phosphate 15 mmol/ Magnesium Sulfate 12 meq/Calcium Gluconate 13 meq/ Multivitamins 10 ml/Chromium/ Copper/Manganese/ Seleni/Zn 1 ml/ Total Parenteral Nutrition/Amino Acids/Dextrose/ Fat Emulsion Intravenous 1,512 ml @ 63 mls/hr TPN CONT 02/18/19 22:00 02/19/19 21:59 DC 02/18/19 23:13 63 MLS/HR Sodium Chloride 90 meq/Potassium Acetate 90 meq/ Potassium Phosphate 15 mmol/ Magnesium Sulfate 12 meq/Calcium Gluconate 13 meq/ Multivitamins 10 ml/Chromium/ Copper/Manganese/ Seleni/Zn 1 ml/ Total Parenteral Nutrition/Amino Acids/Dextrose/ Fat Emulsion Intravenous 1,512 ml @ 63 mls/hr TPN CONT 02/19/19 22:00 02/20/19 21:59 02/19/19 22:21 63 MLS/HR Sucralfate (Carafate) 1 gm BIDAC 02/18/19 16:30 02/19/19 17:14 DC Vancomycin HCl 250 ml @ 250 mls/hr 1X ONCE 02/14/19 17:00 02/14/19 17:59 DC 02/14/19 17:36 250 MLS/HR Labs: Lab Laboratory Tests Test 02/19/19 11:25 02/19/19 17:07 02/20/19 04:10 Glucose (Fingerstick) 254 mg/dL (70-99) 247 mg/dL (70-99) Sodium Level 143 mmol/L (136-145) Potassium Level 3.5 mmol/L (3.5-5.1) Chloride Level 114 mmol/L (98-107) Carbon Dioxide Level 21 mmol/L (21-32) Anion Gap 8 (6-14) Blood Urea Nitrogen 15 mg/dL (8-26) Creatinine 1.3 mg/dL (0.7-1.3) Estimated GFR (Cockcroft-Gault) 52.2 Glucose Level 280 mg/dL (70-99) Calcium Level 7.5 mg/dL (8.5-10.1) Phosphorus Level 2.2 mg/dL (2.6-4.7) Magnesium Level 2.1 mg/dL (1.8-2.4) Micro cult neg Objective: Assessment: 1. Lactic acidosis,multifactorial,resolved 2. Hypotension secondary to dehydration.resolved 3. History of congestive heart failure. 4. History of renal insufficiency. 5. Large pleural effusion.s/p thoracocentesis ,transudate 6. Coronary artery disease. 7. Malnutrition with albumin 1.4. 8. Elevated liver function tests. 9. Thrombocytopenia Plan: Plan of Care Pt is transitioned to Home with hospice D/W SOULEYMANE JAVED MD Feb 20, 2019 09:52
--- NOTE | 2019-02-20 09:52 | PDOC ---
Objective: Objective: Reviewed chart and d/w nurse. Vital Signs: Vital Signs Date Time Temp Pulse Resp B/P (MAP) Pulse Ox O2 Delivery O2 Flow Rate FiO2 02/20/19 07:00 97.6 76 16 131/61 (84) 93 Room Air 97.6 Labs: Laboratory Tests Test 02/19/19 11:25 02/19/19 17:07 Glucose (Fingerstick) 254 mg/dL (70-99) 247 mg/dL (70-99) PE: GEN: NAD, breakfast tray untouched NEURO/PSYCH: sleeping, not awakened A/P: Anorexia, dysphagia - on TPN, h/o esophageal dysmotility S/p antrectomy w/ Kb-en-Y and J tube placement/removal, h/o anastomotic ulcers Cardiomyopathy, CAD, DM, CHF, [place] -- Plans to DC on Hospice - GI will sign off. RAS HARRIS Feb 20, 2019 09:52
--- NOTE | 2019-02-20 10:00 | PDOC ---
SUBJECTIVE ROS Unchanged OBJECTIVE Vital Signs Vital Signs Date Time Temp Pulse Resp B/P (MAP) Pulse Ox O2 Delivery O2 Flow Rate FiO2 02/20/19 07:00 97.6 76 16 131/61 (84) 93 Room Air 97.6 I & 0 Intake and Output 02/20/19 07:00 Intake Total 0 ml Output Total 650 ml Balance -650 ml Intake Oral 0 ml Output Urine Total 650 ml PHYSICAL EXAM Physical Exam General: No acute distress,cachectic HEENT: OM dry , On O2 by NC Neck supple Lungs: CTA , decreased BS bases Heart: Regular rate , Normal S1, Normal S2, No murmurs Abdomen: Soft, No tenderness Extremities: 2-3 + EDEMA ( 2/2 severe hypoalbuminemia) Skin: No rash Neuro: grossly normal - Perrin + DIAGNOSIS/ASSESSMENT Assessment & Plan ADAM - Pre-renal 2/2 diarrhea, Poor PO intake Renal function improving - at his baseline CT - Cyst vs Hydronephrosis Rt kidney per Radiologist Hypokalemia- Replace as needed , adjust in TPN Hypocalcemia- mildly low correction for Albumin Adjust in TPN CKD stage 3 -Baseline Renal function per [facility] records 1.4-1.7, Pleural Effusion- Rt large S/P Thoracentesis 1.5 LTS 02/15 Anasarca - 2/2 Severe protein malnutrition / Severe HypoAlbuminemia On TPN now 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 Will sign off COMMENT/RELEVANT DATA Meds Current Medications Medications (Trade) Dose Ordered Sig/Enrrique Start Time Stop Time Status Last Admin Dose Admin Acetaminophen (Tylenol) 500 mg PRN Q6HRS PRN 02/19/19 09:15 02/19/19 17:14 DC Albumin Human 250 ml @ 62.5 mls/hr 1X ONCE 02/17/19 14:30 02/17/19 18:29 DC 02/17/19 14:30 62.5 MLS/HR Amino Acids/ Glycerin/ Electrolytes 1,000 ml @ 100 mls/hr Q10H 02/17/19 11:00 02/18/19 09:00 DC 02/17/19 11:08 100 MLS/HR Aspirin (Children'S Aspirin) 81 mg DAILYWBKFT 02/15/19 08:00 02/15/19 09:29 DC 02/15/19 08:43 81 MG Aspirin (Ecotrin) 81 mg DAILYWBKFT 02/16/19 08:00 02/19/19 17:14 DC 02/18/19 09:49 81 MG Ceftriaxone Sodium (Rocephin) 2 gm Q24H 02/18/19 09:00 02/20/19 07:31 DC 02/19/19 09:03 2 GM Chlorhexidine Gluconate (Peridex) 15 ml BID 02/16/19 21:00 Cancel Citalopram Hydrobromide (CeleXA) 20 mg DAILY 02/15/19 09:00 02/19/19 17:14 DC 02/18/19 09:49 20 MG Dopamine HCl/ Dextrose 250 ml @ 10.121 mls/ hr CONT PRN 02/14/19 20:00 02/19/19 09:05 DC 02/14/19 20:32 13 MLS/HR Enoxaparin Sodium (Lovenox 30mg Syringe) 30 mg Q24H 02/14/19 21:00 02/19/19 17:14 DC 02/18/19 23:13 30 MG Enoxaparin Sodium (Lovenox 40mg Syringe) 40 mg Q12HR 02/16/19 21:00 UNV Famotidine (Pepcid Vial) 20 mg QHS 02/16/19 21:00 Cancel Fentanyl Citrate (Fentanyl 2ml Vial) 50 mcg PRN Q1HR PRN 02/16/19 17:30 Cancel Furosemide (Lasix) 20 mg 1X ONCE 02/15/19 10:15 02/15/19 10:16 DC 02/15/19 11:42 20 MG Info (Tpn Per Pharmacy) 1 each PRN DAILY PRN 02/17/19 10:45 02/19/19 17:14 DC 02/19/19 13:31 1 EACH Lactobacillus Rhamnosus (Culturelle) 1 cap BID 02/15/19 21:00 02/19/19 17:14 DC 02/18/19 23:11 1 CAP Levofloxacin/ Dextrose 150 ml @ 100 mls/hr 1X ONCE 02/14/19 16:45 02/14/19 18:14 DC 02/14/19 18:17 100 MLS/HR Linezolid/Dextrose 300 ml @ 300 mls/hr Q12HR 02/14/19 21:00 02/17/19 08:56 DC 02/17/19 08:36 300 MLS/HR Lorazepam (Ativan Intensol) 2 mg PRN Q6HRS PRN 02/20/19 07:30 Magnesium Sulfate 50 ml @ 25 mls/hr 1X ONCE 02/17/19 14:00 02/17/19 15:59 DC 02/17/19 14:41 25 MLS/HR Metronidazole 100 ml @ 100 mls/hr Q12HR 02/19/19 21:00 02/20/19 07:31 DC 02/19/19 22:22 100 MLS/HR Midazolam HCl 100 ml @ 5 mls/hr CONT PRN 02/16/19 17:30 Cancel Morphine Sulfate (Morphine Sulfate) 4 mg PRN Q1HR PRN 02/16/19 17:30 Cancel Morphine Sulfate (Roxanol Conc) 20 mg PRN Q3HRS PRN 02/20/19 07:30 Norepinephrine Bitartrate 250 ml @ 12.97 mls/ hr CONT PRN 02/14/19 21:15 02/19/19 09:05 DC 02/16/19 23:40 12.97 MLS/HR Ondansetron HCl (Zofran) 4 mg PRN Q6HRS PRN 02/14/19 21:30 02/19/19 17:14 DC 02/15/19 15:42 4 MG Pantoprazole Sodium (PROTONIX VIAL for IV PUSH) 40 mg BIDAC 02/15/19 16:30 02/18/19 09:42 DC 02/17/19 16:47 40 MG Pantoprazole Sodium (Protonix) 40 mg DAILYAC 02/19/19 07:30 02/19/19 17:14 DC Piperacillin Sod/ Tazobactam Sod 3.375 gm/Sodium Chloride 50 ml @ 100 mls/hr Q8HRS 02/14/19 22:00 02/18/19 08:16 DC 02/18/19 05:18 100 MLS/HR Potassium Chloride/Water 100 ml @ 100 mls/hr Q1H 02/15/19 12:00 02/15/19 15:59 DC 02/15/19 14:53 100 MLS/HR Potassium Phosphate 13.6 mmol/Dextrose 104.5333 ml @ 52.267 m... Q2H 02/17/19 14:00 02/17/19 17:59 DC 02/17/19 15:49 52.267 MLS/HR Propofol 100 ml @ 1.061 mls/ hr CONT PRN 02/16/19 17:30 Cancel Sodium Chloride 90 meq/Potassium Acetate 50 meq/ Potassium Phosphate 20 mmol/ Magnesium Sulfate 15 meq/Calcium Gluconate 10 meq/ Multivitamins 10 ml/Chromium/ Copper/Manganese/ Seleni/Zn 1 ml/ Total Parenteral Nutrition/Amino Acids/Dextrose/ Fat Emulsion Intravenous 1,512 ml @ 63 mls/hr TPN CONT 02/17/19 22:00 02/18/19 13:04 DC 02/17/19 22:02 63 MLS/HR Sodium Chloride 90 meq/Potassium Acetate 70 meq/ Potassium Phosphate 15 mmol/ Magnesium Sulfate 12 meq/Calcium Gluconate 13 meq/ Multivitamins 10 ml/Chromium/ Copper/Manganese/ Seleni/Zn 1 ml/ Total Parenteral Nutrition/Amino Acids/Dextrose/ Fat Emulsion Intravenous 1,512 ml @ 63 mls/hr TPN CONT 02/18/19 22:00 02/19/19 21:59 DC 02/18/19 23:13 63 MLS/HR Sodium Chloride 90 meq/Potassium Acetate 90 meq/ Potassium Phosphate 15 mmol/ Magnesium Sulfate 12 meq/Calcium Gluconate 13 meq/ Multivitamins 10 ml/Chromium/ Copper/Manganese/ Seleni/Zn 1 ml/ Total Parenteral Nutrition/Amino Acids/Dextrose/ Fat Emulsion Intravenous 1,512 ml @ 63 mls/hr TPN CONT 02/19/19 22:00 02/20/19 21:59 02/19/19 22:21 63 MLS/HR Sucralfate (Carafate) 1 gm BIDAC 02/18/19 16:30 02/19/19 17:14 DC Vancomycin HCl 250 ml @ 250 mls/hr 1X ONCE 02/14/19 17:00 02/14/19 17:59 DC 02/14/19 17:36 250 MLS/HR Lab Laboratory Tests Test 02/19/19 11:25 02/19/19 17:07 02/20/19 04:10 Glucose (Fingerstick) 254 mg/dL (70-99) 247 mg/dL (70-99) Sodium Level 143 mmol/L (136-145) Potassium Level 3.5 mmol/L (3.5-5.1) Chloride Level 114 mmol/L (98-107) Carbon Dioxide Level 21 mmol/L (21-32) Anion Gap 8 (6-14) Blood Urea Nitrogen 15 mg/dL (8-26) Creatinine 1.3 mg/dL (0.7-1.3) Estimated GFR (Cockcroft-Gault) 52.2 Glucose Level 280 mg/dL (70-99) Calcium Level 7.5 mg/dL (8.5-10.1) Phosphorus Level 2.2 mg/dL (2.6-4.7) Magnesium Level 2.1 mg/dL (1.8-2.4) Results All relevant outside records, renal labs, imaging studies, telemetry/EKG's were reviewed. DARA ROGERS MD Feb 20, 2019 10:00
--- NOTE | 2019-02-20 10:57 | PDOC ---
PULMONARY PROGRESS NOTES Subjective NO RESP DISTRESS Vitals Vital Signs Date Time Temp Pulse Resp B/P (MAP) Pulse Ox O2 Delivery O2 Flow Rate FiO2 02/20/19 09:00 Room Air 1.0 02/20/19 07:00 97.6 76 16 131/61 (84) 93 97.6 ROS: No Nausea, No Chest Pain, No Increase Cough General: Alert Lungs: Crackles, Other Cardiovascular: S1, S2 Abdomen: Soft, Non-tender, Other (no mass) Neuro Exam: Alert Skin: Warm Labs Laboratory Tests Test 02/18/19 21:01 02/19/19 05:35 02/19/19 07:27 02/19/19 11:25 Glucose (Fingerstick) 209 mg/dL (70-99) 213 mg/dL (70-99) 254 mg/dL (70-99) Sodium Level 140 mmol/L (136-145) Potassium Level 3.3 mmol/L (3.5-5.1) Chloride Level 111 mmol/L (98-107) Carbon Dioxide Level 20 mmol/L (21-32) Anion Gap 9 (6-14) Blood Urea Nitrogen 14 mg/dL (8-26) Creatinine 1.5 mg/dL (0.7-1.3) Estimated GFR (Cockcroft-Gault) 44.3 Glucose Level 244 mg/dL (70-99) Calcium Level 7.1 mg/dL (8.5-10.1) Phosphorus Level 2.7 mg/dL (2.6-4.7) Magnesium Level 2.1 mg/dL (1.8-2.4) Test 02/19/19 17:07 02/20/19 04:10 Glucose (Fingerstick) 247 mg/dL (70-99) Sodium Level 143 mmol/L (136-145) Potassium Level 3.5 mmol/L (3.5-5.1) Chloride Level 114 mmol/L (98-107) Carbon Dioxide Level 21 mmol/L (21-32) Anion Gap 8 (6-14) Blood Urea Nitrogen 15 mg/dL (8-26) Creatinine 1.3 mg/dL (0.7-1.3) Estimated GFR (Cockcroft-Gault) 52.2 Glucose Level 280 mg/dL (70-99) Calcium Level 7.5 mg/dL (8.5-10.1) Phosphorus Level 2.2 mg/dL (2.6-4.7) Magnesium Level 2.1 mg/dL (1.8-2.4) Laboratory Tests Test 02/19/19 11:25 02/19/19 17:07 02/20/19 04:10 Glucose (Fingerstick) 254 mg/dL (70-99) 247 mg/dL (70-99) Sodium Level 143 mmol/L (136-145) Potassium Level 3.5 mmol/L (3.5-5.1) Chloride Level 114 mmol/L (98-107) Carbon Dioxide Level 21 mmol/L (21-32) Anion Gap 8 (6-14) Blood Urea Nitrogen 15 mg/dL (8-26) Creatinine 1.3 mg/dL (0.7-1.3) Estimated GFR (Cockcroft-Gault) 52.2 Glucose Level 280 mg/dL (70-99) Calcium Level 7.5 mg/dL (8.5-10.1) Phosphorus Level 2.2 mg/dL (2.6-4.7) Magnesium Level 2.1 mg/dL (1.8-2.4) Medications Active Scripts Medications Dose Route/Sig Max Daily Dose Days Date Category Aspirin Ec (Aspirin) 81 Mg Tablet.dr 81 Mg PO DAILYWBKFT 30 10/06/17 Rx Protonix (Pantoprazole Sodium) 20 Mg Tablet.dr 40 Mg PO BID 06/29/17 Reported Escitalopram Oxalate 10 Mg Tablet 10 Mg PO DAILY 03/30/17 Reported Impression . IMPRESSION: 1. Large right-sided effusion, s/p thoracentesis, transudate, due to chf. 2. Septic/cardiogenic shock. 3. Elevated liver chemistries. 4. [id number] congestive heart failure, systolic. 5. Renal insufficiency. 6. Protein malnutrition, present upon admission. echo The systolic function is mildly to moderately impaired. The Ejection Fraction is 40-45%. There is global hypokinesis of the left ventricle. Septal motion suggestive of conduction defect. Plan . D/W PAT PT TO [facility] ROY MD Feb 20, 2019 10:57
--- NOTE | 2019-02-20 14:37 | NUR ---
SW following pt. [facility] has accepted pt, DME will be delivered by 1500. SW arranged transport by 1700 via [facility] and packet on chart. Pt's daughter, Valentina notified and agreeable. Discussed with RN.
--- NOTE | 2019-02-20 18:23 | NUR ---
Discharge Note: PT DISCHARGE HOME WITH [facility]. PT LEFT FACILITY VIA EMS TRANSPORT AT 1810. PT GUARDED UPON DISCHARGE. PT TRIPLE LUMEN CENTRAL LINE REMOVED FROM R EJ WITHOUT COMPLICATIONS, BANDAGE APPLIED. PT LEFT WITH ALL PERSONAL BELONGINGS, [facility] CATH IN PLACE, AND DISCHARGE PACKET FOR HOSPICE NURSE. NO CONCERNS VOICED AT THIS TIME. [facility] Discharge instructions and discharge home medications reviewed with Patient and a copy given. All questions have been answered and understanding verbalized.
== END 2019-02-20 18:27 | disposition hospice, home (50) | DRG 871 ==
LOC: ER 15:13 → 1 WEST ICU 17:07 → 5 SOUTH 02-18 18:45
PROVIDERS: ADMIT Internal Medicine; ATTEND Internal Medicine
PROC: 0W993ZZ Drainage of Right Pleural Cavity, Percutaneous Approach (ICD-10-PCS; principal; 2019-02-18)
DX: A41.9 Sepsis, unspecified organism (principal); I50.43 Acute on chronic combined systolic (congestive) and diastolic (congestive) heart failure; E43 Unspecified severe protein-calorie malnutrition; R65.21 Severe sepsis with septic shock; J96.90 Respiratory failure, unspecified, unspecified whether with hypoxia or hypercapnia; R57.0 Cardiogenic shock; I13.0 Hypertensive heart and chronic kidney disease with heart failure and stage 1 through stage 4 chronic kidney disease, or unspecified chronic kidney disease; D68.9 Coagulation defect, unspecified; G93.40 Encephalopathy, unspecified; I42.8 Other cardiomyopathies; N13.30 Unspecified hydronephrosis; N17.9 Acute kidney failure, unspecified; J98.11 Atelectasis; R64 Cachexia; Z66 Do not resuscitate; D69.6 Thrombocytopenia, unspecified; E83.42 Hypomagnesemia; E87.6 Hypokalemia; I25.10 Atherosclerotic heart disease of native coronary artery without angina pectoris; I25.5 Ischemic cardiomyopathy; K21.9 Gastro-esophageal reflux disease without esophagitis; M75.100 Unspecified rotator cuff tear or rupture of unspecified shoulder, not specified as traumatic; R62.7 Adult failure to thrive; F41.9 Anxiety disorder, unspecified; M19.90 Unspecified osteoarthritis, unspecified site; R19.7 Diarrhea, unspecified; E83.51 Hypocalcemia; D64.9 Anemia, unspecified; K22.4 Dyskinesia of esophagus; H91.90 Unspecified hearing loss, unspecified ear; R74.0 Nonspecific elevation of levels of transaminase and lactic acid dehydrogenase [LDH]; E78.5 Hyperlipidemia, unspecified; E86.0 Dehydration; E11.22 Type 2 diabetes mellitus with diabetic chronic kidney disease; Z95.1 Presence of aortocoronary bypass graft; Z90.49 Acquired absence of other specified parts of digestive tract; Z68.26 Body mass index [BMI] 26.0-26.9, adult; I25.2 Old myocardial infarction; Z87.891 Personal history of nicotine dependence; Z87.11 Personal history of peptic ulcer disease; Z82.49 Family history of ischemic heart disease and other diseases of the circulatory system; Z74.01 Bed confinement status; N18.3 Chronic kidney disease, stage 3 (moderate)
CPT/HCPCS: 32555; 36415; 71045; 71250; 74176; 80048; 80053; 81001; 82607; 82805; 82945; 82962; 83540; 83550; 83605; 83615; 83735; 83880; 84100; 84157; 84484; 85025; 85027; 85610; 87040; 87045; 87071; 87075; 87493; 88112; 88305; 89050; 93005; 93306; 96361; 96365; 96368; 96375; C9113; J0610; J0696; J1265; J1650; J1940; J1956; J2020; J2405; J2543; J3370; J3475; J3480; J3490; J7030; J7040; P9041; P9046; 92526; 92610; 97530; 97535; 99291-25; G0378